=== PATIENT | female | born 1975 | race Caucasian/White ===

== ENCOUNTER 2017-02-26 05:58 | Emergency (ER) | payer MEDICAID, MEDICARE ==
[~2017-02-26] VITALS: Ht 157.5 cm; Wt 77.1 kg
--- NOTE | 2017-02-26 06:28 | RAD ---
INDICATION: POSS. STROKE, AMS, TROUBLE SPEAKING AND STANDING COMPARISON: None. TECHNIQUE: Axial CT images obtained through the head without intravenous contrast. One or more of the following individualized dose reduction techniques were utilized for this examination: 1. Automated exposure control; 2. Adjustment of the mA and/or kV according to patient size; 3. Use of iterative reconstruction technique. FINDINGS: No intracranial hemorrhage. No midline shift. Basal cisterns patent. Ventricles are mildly prominent for the patient's age. No acute osseous abnormality. Orbits and paranasal sinuses unremarkable. IMPRESSION: 1. No acute intracranial hemorrhage. Report called to the ER at 6:21 AM on date of exam. Electronically signed by: Abelardo Holt MD (02/26/2017 6:24 AM) [facility]
[2017-02-26 06:29] LABS: BASO # 0.1 x10^3/uL (0.0-0.2); BASO % 1 % (0-3); EOS # 0.1 x10^3/uL (0.0-0.7); EOS % 1 % (0-3); HEMOGLOBIN 12.8 g/dL (12.0-15.5); LYMPH # 2.3 x10^3/uL (1.0-4.8); LYMPH % 19 % (24-48); MEAN CORPUSCULAR HEMOGLOBIN 30 pg (25-35); MEAN CORPUSCULAR HGB CONC 33 g/dL (31-37); MEAN CORPUSCULAR VOLUME 90 fL (79-100); MONO % 8 % (0-9); NEUT # 8.5 x10^3uL (1.8-7.7); NEUT % 71 % (31-73); PLATELET COUNT 162 x10^3/uL (140-400); RED BLOOD COUNT 4.32 x10^6/uL (3.50-5.40); RED CELL DISTRIBUTION WIDTH 15.8 % (11.5-14.5); WHITE BLOOD COUNT 11.9 x10^3/uL (4.0-11.0)
--- NOTE | 2017-02-26 06:32 | EKG ---
[address] [address] Test Date: 2017-02-26 Test Time: 06:14:40 Pat Name: ROSANGELA FLORENCE Department: Room: Gender: F Online [employer]er: NORBERT : 1975 Requested By: ALEKSANDER COTA Order Number: [id number] Reading MD: Bulmaro Parker Measurements Intervals [place] Rate: 75 P: 51 SD: 134 QRS: 0 QRSD: 82 T: 11 QT: 380 QTc: 427 Interpretive Statements SINUS RHYTHM ATRIAL PREMATURE COMPLEX(ES) Electronically Signed On 02-26-2017 15:34:39 CDT by Bulmrao Parker
--- NOTE | 2017-02-26 06:36 | PHYS DOC ---
Past History Past Medical History: Anxiety, Constipation, COPD, CVA, GERD, Hypertension, TIA , UTI, Other Additional Past Medical Histor: adrenal insufficiency, spinal stenosis, pulmonary embolism Past Surgical History: Cholecystectomy, Hysterectomy, Tonsillectomy Additional Past Surgical Histo: gastrectomy, ventral hernia repair Adult General Chief Complaint Chief Complaint: altered mental status HPI HPI Patient is a 41 year old female who presents to the emergency department for evaluation of altered mental status. Patient was brought to the emergency department by EMS at 0600. The patient reportedly awoke at 0430 in an altered state. Patient's last known well time was 2300 last night before bedtime. The patient has an extensive past medical history that includes COPD, hypertension, pulmonary embolism, spinal stenosis with chronic left-sided foot drop and CVA. Per EMS report, the patient was displaying erratic, jerking movements as told by after patient awoke to try to use the bathroom this morning. The patient was noted on their arrival to be minimally responsive. Currently the patient is opening eyes to voice but is disoriented and unable to provide any history. When asked different questions, the patient continues to repeat, "Dr. Castañeda is my primary doctor." Patient does not localize any complaints at this time. On chart review, the patient was recently admitted to the hospital 2 weeks ago where she was treated for hypokalemia and palpitations. The patient is on fentanyl patch and oral Dilaudid for treatment of chronic back pain. Review of Systems Review of Systems Unable to obtain from patient. She is disoriented and is not answering questions appropriately. Current Medications Current Medications Current Medications Medications (Trade) Dose Ordered Sig/Mani Start Time Stop Time Status Last Admin Dose Admin Ceftriaxone Sodium 1 gm/ Sodium Chloride 50 ml @ 100 mls/hr 1X ONCE 02/26/17 08:00 02/26/17 08:29 Sodium Chloride 1,000 ml @ 1,000 mls/hr 1X ONCE 02/26/17 08:00 02/26/17 08:59 Vancomycin HCl (Vanco Per Pharmacy) 1 each PRN DAILY PRN 02/26/17 07:30 Vancomycin HCl 2 gm/Sodium Chloride 500 ml @ 250 mls/hr 1X ONCE 02/26/17 08:30 02/26/17 10:29 Allergies Allergies Allergies Coded Allergies Type Severity Reaction Last Updated Verified Sulfa (Sulfonamide Antibiotics) Allergy Unknown 02/26/17 Yes citric acid Allergy Unknown 02/26/17 Yes shellfish derived Allergy Unknown 02/26/17 Yes Physical Exam Physical Exam Constitutional: Lethargic, confused, afebrile, vital signs stable. [] HENT: Normocephalic, atraumatic, bilateral external ears normal, oropharynx moist, no oral exudates, nose normal. [] Eyes: PERRLA, EOMI, conjunctiva normal, no discharge. [] Neck: Normal range of motion, no tenderness, supple, no stridor. [] Cardiovascular:Heart rate regular rhythm, no murmur [] Lungs & Thorax: Bilateral breath sounds clear to auscultation [] Abdomen: Bowel sounds normal, soft, no tenderness, no masses, no pulsatile masses. [] Skin: Warm, dry, no erythema, no rash. [] Back: No tenderness, no CVA tenderness. [] Extremities: No tenderness, no cyanosis, no clubbing, ROM intact, no edema. [] Neurologic: Lethargic, opens eyes to voice, confused, moves all extremities purposefully. [] Current Patient Data Vital Signs Vital Signs Date Time Temp Pulse Resp B/P (MAP) Pulse Ox O2 Delivery O2 Flow Rate FiO2 02/26/17 05:58 99.0 81 18 96 4.0 Lab Results Laboratory Tests Test 02/26/17 06:15 02/26/17 06:24 White Blood Count 11.9 x10^3/uL Red Blood Count 4.32 x10^6/uL Hemoglobin 12.8 g/dL Hematocrit 39.0 % Mean Corpuscular Volume 90 fL Mean Corpuscular Hemoglobin 30 pg Mean Corpuscular Hemoglobin Concent 33 g/dL Red Cell Distribution Width 15.8 % Platelet Count 162 x10^3/uL Neutrophils (%) (Auto) 71 % Lymphocytes (%) (Auto) 19 % Monocytes (%) (Auto) 8 % Eosinophils (%) (Auto) 1 % Basophils (%) (Auto) 1 % Neutrophils # (Auto) 8.5 x10^3uL Lymphocytes # (Auto) 2.3 x10^3/uL Monocytes # (Auto) 1.0 x10^3/uL Eosinophils # (Auto) 0.1 x10^3/uL Basophils # (Auto) 0.1 x10^3/uL Sodium Level 142 mmol/L Potassium Level 3.5 mmol/L Chloride Level 107 mmol/L Carbon Dioxide Level 31 mmol/L Anion Gap 4 Blood Urea Nitrogen 12 mg/dL Creatinine 1.6 mg/dL Estimated GFR (Cockcroft-Gault) 35.3 BUN/Creatinine Ratio 8 Glucose Level 86 mg/dL Calcium Level 8.6 mg/dL Magnesium Level 2.1 mg/dL Total Bilirubin 0.4 mg/dL Aspartate Amino Transf (AST/SGOT) 13 U/L Alanine Aminotransferase (ALT/SGPT) 25 U/L Alkaline Phosphatase 85 U/L Creatine Kinase 43 U/L Creatine Kinase MB (Mass) < 0.5 ng/mL Creatine Kinase MB Relative Index 1.2 % Troponin I Quantitative < 0.017 ng/mL Total Protein 6.4 g/dL Albumin 3.2 g/dL Albumin/Globulin Ratio 1.0 Urine Collection Type U cath Urine Color Paulina Urine Clarity Cloudy Urine pH 5.0 Urine Specific [place] <=1.005 Urine Protein 30 mg/dl Urine Glucose (UA) Neg mg/dL Urine Ketones (Stick) Neg mg/dL Urine Blood Large Urine Nitrite Pos Urine Bilirubin Small Urine Urobilinogen Dipstick 1 mg/dL Urine Leukocyte Esterase Large Urine RBC 3-5 /HPF Urine WBC >40 /HPF Urine Squamous Epithelial Cells Mod /LPF Urine Ammonium Biurate Crystals Present /HPF Urine Amorphous Sediment Present /HPF Urine Bacteria Many /HPF Urine Opiates Screen Pos Urine Methadone Screen Neg Urine Barbiturates Neg Urine Phencyclidine Screen Neg Urine Amphetamine/Methamphetamine Neg Urine Benzodiazepines Screen Neg Urine Cocaine Screen Neg Urine Cannabinoids Screen Neg Urine Ethyl Alcohol Neg Current Medications Medications (Trade) Dose Ordered Sig/Mani Route PRN Reason Start Time Stop Time Status Last Admin Dose Admin Sodium Chloride 1,000 ml @ 1,000 mls/hr 1X ONCE IV 02/26/17 08:00 02/26/17 08:59 Ceftriaxone Sodium 1 gm/ Sodium Chloride 50 ml @ 100 mls/hr 1X ONCE IV 02/26/17 08:00 02/26/17 08:29 Vancomycin HCl (Vanco Per Pharmacy) 1 each PRN DAILY PRN MC SEE COMMENTS 02/26/17 07:30 Vancomycin HCl 2 gm/Sodium Chloride 500 ml @ 250 mls/hr 1X ONCE IV 02/26/17 08:30 02/26/17 10:29 EKG EKG Interpreted by me: Heart rate 75, sinus rhythm, normal intervals, leftward axis , no acute ST/T-wave abnormalities present[] Radiology/Procedures Radiology/Procedures [address] [address] IMAGING REPORT Signed PATIENT: ROSANGELA FLORENCE ACCOUNT: [id number] : 1975 LOCATION: ER AGE: 41 SEX: F EXAM STATUS: REG ER ORD. PHYSICIAN: ALEKSANDER COTA MD REASON: decreased responsiveness, rule out acute cardiopulmonary abnormal PROCEDURE: PORTABLE CHEST 1V Portable chest, 02/26/2017: History: Decreased responsiveness A right Port-A-Cath extends into the superior aspect of the right atrium. The heart size and pulmonary vascularity appear to be within normal limits. No pulmonary infiltrates are seen. There is no evidence of pleural fluid. IMPRESSION: No acute cardiopulmonary abnormality is detected. DICTATED AND SIGNED BY: ELZA MARTIN MD DATE: 02/26/17 0706 CC: ALEKSANDER COTA MD; Tony CASTAÑEDA MD ~ [address] [address] IMAGING REPORT Signed PATIENT: ROSANGELA FLORENCE ACCOUNT: [id number] : 1975 LOCATION: ER AGE: 41 SEX: F EXAM STATUS: REG ER ORD. PHYSICIAN: ANTONELLA DUNNE MD REASON: PROCEDURE: CT HEAD WO CONTRAST INDICATION: POSS. STROKE, AMS, TROUBLE SPEAKING AND STANDING COMPARISON: None. TECHNIQUE: Axial CT images obtained through the head without intravenous contrast. One or more of the following individualized dose reduction techniques were utilized for this examination: 1. Automated exposure control; 2. Adjustment of the mA and/or kV according to patient size; 3. Use of iterative reconstruction technique. FINDINGS: No intracranial hemorrhage. No midline shift. Basal cisterns patent. Ventricles are mildly prominent for the patient's age. No acute osseous abnormality. Orbits and paranasal sinuses unremarkable. IMPRESSION: 1. No acute intracranial hemorrhage. Report called to the ER at 6:21 AM on date of exam. Electronically signed by: Abelardo Holt MD (02/26/2017 6:24 AM) [facility] DICTATED AND SIGNED BY: ABELARDO HOLT MD DATE: 02/26/17 0618 CC: ANTONELLA DUNNE MD; ALEKSANDER COTA MD; Tony CASTAÑEDA MD ~ [] Course & Med Decision Making Course & Med Decision Making Pertinent Labs and Imaging studies reviewed. (See chart for details) The patient's workup showed evidence of active urinary tract infection. The patient's vital signs remained stable however the patient continues to be in a lethargic altered state. Acute CVA is less likely in this patient has patient's symptoms appear consistent with encephalopathy and patient has no new focal neurologic deficits. The patient will require admission to the hospital for fluids and IV antibiotics and continued monitoring to ensure improvement in mental status. I spoke with the patient's who stated that they would like the patient admitted at [facility] as her primary physician , Dr. Castañeda, practices there. I spoke with Dr. Hernandez who was on-call for Dr. Castañeda. She accepted care of patient in hospital. The patient will be transferred by ground EMS upon room assignment at [facility]. Dragon Disclaimer Dragon Disclaimer This chart was dictated in whole or in part using Voice Recognition software in a busy, high-work load, and often noisy Emergency Department environment. It may contain unintended and wholly unrecognized errors or omissions. Departure Departure: Impression: Primary Impression: Urinary tract infection Additional Impressions: Acute encephalopathy Chronic, continuous use of opioids Disposition: [facility] Condition: GUARDED Referrals: Tony CASTAÑEDA MD (PCP) Problem Qualifiers Primary Impression: Urinary tract infection Urinary tract infection type: catheter-associated UTI Indwelling urinary catheter type: indwelling urethral catheter Encounter type: initial encounter Qualified Codes: T83.511A - Infection and inflammatory reaction due to indwelling urethral catheter, initial encounter; N39.0 - Urinary tract infection, site not specified ALEKSANDER COTA MD Feb 26, 2017 06:36
[2017-02-26 06:50] LABS: BARBITURATES NEG (NEG); BENZODIAZEPINES NEG (NEG); CANNABINOIDS NEG (NEG); COCAINE NEG (NEG); METHADONE NEG (NEG); OPIATES POS (NEG); PHENCYCLIDINE NEG (NEG)
[2017-02-26 06:53] LABS: AMPHETAMINE/METHAMPHETAMINE NEG (NEG)
[2017-02-26 06:53] LABS: ALBUMIN 3.2 g/dL (3.4-5.0); ALK PHOS 85 U/L (46-116); ALT (SGPT) 25 U/L (14-59); ANION GAP 4 (6-14); AST (SGOT) 13 U/L (15-37); BLOOD UREA NITROGEN 12 mg/dL (7-20); BUN/CREATININE RATIO 8 (6-20); CALCIUM 8.6 mg/dL (8.5-10.1); CARBON DIOXIDE 31 mmol/L (21-32); CHLORIDE 107 mmol/L (98-107); CREATINE KINASE 43 U/L (26-192); CREATININE 1.6 mg/dL (0.6-1.0); GFR 35.3; GLUCOSE 86 mg/dL (70-99); MAGNESIUM 2.1 mg/dL (1.8-2.4); POTASSIUM 3.5 mmol/L (3.5-5.1); SODIUM 142 mmol/L (136-145); TOTAL BILIRUBIN 0.4 mg/dL (0.2-1.0); TOTAL PROTEIN 6.4 g/dL (6.4-8.2)
[2017-02-26 06:54] LABS: BACTERIA,URINE MANY /HPF (0-FEW); BILIRUBIN,URINE SMALL (NEG); CLARITY,URINE CLOUDY; COLOR,URINE AMBER; GLUCOSE,URINE NEG (NEG); NITRITE,URINE POS (NEG); UROBILINOGEN,URINE 1 mg/dL (0.2 mg/dL); WBC,URINE >40 /HPF (0-4)
[2017-02-26 06:55] LABS: AMMONIUM BIURATE PRESENT /HPF; SQUAMOUS EPITHELIAL CELL,UR MOD /LPF
[2017-02-26 06:57] LABS: AMORPHOUS SEDIMENT,UR PRESENT /HPF
--- NOTE | 2017-02-26 07:09 | RAD ---
Portable chest, 02/26/2017: History: Decreased responsiveness A right Port-A-Cath extends into the superior aspect of the right atrium. The heart size and pulmonary vascularity appear to be within normal limits. No pulmonary infiltrates are seen. There is no evidence of pleural fluid. IMPRESSION: No acute cardiopulmonary abnormality is detected.
[2017-02-26] MEDS ORDERED: VANCOMYCIN PER PHARMACY MC PRN (07:30)
[2017-02-26] MEDS ORDERED: IV NORMAL SALINE 1,000ML 1,000 ML IV ONE (08:00)
[2017-02-26] MEDS ORDERED: IV NORMAL SALINE 500ML 500 ML ONE (08:02)
[2017-02-26] MEDS ORDERED: IV NORMAL SALINE 50ML 50 ML ONE (08:02)
[2017-02-26] MEDS ORDERED: VANCOMYCIN 1 GM VIAL. ONE ×2 (08:02→08:03)
[2017-02-26] MEDS ORDERED: cefTRIAXone SODIUM 1 GM VIAL IV ONE (08:03)
[2017-02-26] MEDS ORDERED: VANCOMYCIN 2 GM in IV NORMAL SALINE 500ML 500 ML IV ONE (08:30)
[2017-02-26 09:45] VITALS: BP 87/5
== END 2017-02-26 10:05 | disposition short-term general hospital (02) ==
LOC: ER 05:58
DX: T83.511A Infection and inflammatory reaction due to indwelling urethral catheter, initial encounter (principal); N39.0 Urinary tract infection, site not specified; G93.40 Encephalopathy, unspecified; F11.90 Opioid use, unspecified, uncomplicated; J44.9 Chronic obstructive pulmonary disease, unspecified; F41.9 Anxiety disorder, unspecified; I10 Essential (primary) hypertension; K21.9 Gastro-esophageal reflux disease without esophagitis; Z86.711 Personal history of pulmonary embolism; Z86.73 Personal history of transient ischemic attack (TIA), and cerebral infarction without residual deficits; Z88.2 Allergy status to sulfonamides; Z88.8 Allergy status to other drugs, medicaments and biological substances; Z91.013 Allergy to seafood
CPT/HCPCS: 36415; 70450; 71010; 80053; 80307; 81001; 82553; 83735; 84484; 85025; 87040; 87086; 87205; 93005; 96365; 96366; 96368; 99285; J0696; J3370; J7040; G0479; J7030

== ENCOUNTER 2017-06-02 06:50 | Emergency (ER) | payer MEDICAID, MEDICARE ==
[~2017-06-02] VITALS: Ht 160 cm; Wt 76.0 kg
--- NOTE | 2017-06-02 07:39 | PHYS DOC ---
Past History Past Medical History: Anxiety, Constipation, COPD, CVA, GERD, Hypertension, TIA , UTI, Other Additional Past Medical Histor: adrenal insufficiency, spinal stenosis, pulmonary embolism Past Surgical History: Cholecystectomy, Hysterectomy, Tonsillectomy Additional Past Surgical Histo: gastrectomy, ventral hernia repair Alcohol Use: None Drug Use: None Adult General Chief Complaint Chief Complaint: URINE CATHETER PROBLEM HPI HPI 41-year-old female patient brought in by her because of the suprapubic catheter is not working. Patient has had extensive medical problem including adrenal insufficiency, gastrectomy and recent suprapubic catheter placement on April 06. Home health nurse replaced suprapubic catheter yesterday and since then patient did not have any urine output and complaining of suprapubic pain constant sharp pain with radiation to her back. Patient wearing depends and had wet diaper at arrival to ER. Patient is asleep most of time and her who gives history states she was not able to sleep well last night and because of taking pain medication she is in her usual condition of the sleeping most the time. Review of Systems Review of Systems Constitutional: Denies fever or chills [] Eyes: Denies change in visual acuity, redness, or eye pain [] HENT: Denies nasal congestion or sore throat [] Respiratory: Denies cough or shortness of breath [] Cardiovascular: No additional information not addressed in HPI [] GI: Denies nausea, vomiting, bloody stools or diarrhea , reports abdominal pain. : Denies dysuria or hematuria [] Musculoskeletal: Denies back pain or joint pain [] Integument: Denies rash or skin lesions [] Neurologic: Denies headache, focal weakness or sensory changes [] Endocrine: Denies polyuria or polydipsia [] All other systems were reviewed and found to be within normal limits, except as documented in this note. Current Medications Current Medications Current Medications Medications (Trade) Dose Ordered Sig/Mani Start Time Stop Time Status Last Admin Dose Admin Sodium Chloride 1,000 ml @ 1,000 mls/hr 1X ONCE 06/02/17 08:00 06/02/17 08:59 Allergies Allergies Allergies Coded Allergies Type Severity Reaction Last Updated Verified Sulfa (Sulfonamide Antibiotics) Allergy Unknown 02/26/17 Yes citric acid Allergy Unknown 02/26/17 Yes shellfish derived Allergy Unknown 02/26/17 Yes Physical Exam Physical Exam Constitutional: Well nourished, somnolent, non-toxic appearance. [] HENT: Normocephalic, atraumatic, bilateral external ears normal, oropharynx moist, no oral exudates, nose normal. [] Eyes: PERRLA, EOMI, conjunctiva normal, no discharge. [] Neck: Normal range of motion, no tenderness, supple, no stridor. [] Cardiovascular:Heart rate regular rhythm, no murmur [] Lungs & Thorax: Bilateral breath sounds clear to auscultation [] Abdomen: Suprapubic in place, lower abdominal guarding and tenderness Skin: Warm, dry, no erythema, no rash. [] Back: No tenderness, no CVA tenderness. [] Extremities: No tenderness, no cyanosis, no clubbing, ROM intact, no edema. [] Neurologic: Alert and oriented X 3, normal motor function, normal sensory function, no focal deficits noted. [] Psychologic: Somnolent, unable to evaluate EKG EKG [] Radiology/Procedures Radiology/Procedures [] Course & Med Decision Making Course & Med Decision Making Pertinent Labs and Imaging studies reviewed. (See chart for details) [Evaluation of patient in ER showed 41-year-old female patient brought in to ER because of suprapubic catheter did not work since the placement yesterday. Ellis catheter was placed with 200 mL urine was drained. CT of abdomen and pelvis showed dislodged suprapubic catheter in preperitoneal fat. Dr. Hill the patient's urologist was contacted at 0936 and recommended to send patient to his office for replacement of suprapubic catheter. Patient's was informed and plan to take patient to her doctor's office. She was comfortable and sleeping most of time while she was in ER. Patient informed with plan of care and is to go to her doctor this morning after discharge from this emergency room. Suprapubic and Ellis was left in the place. Patient has history of adrenal insufficiency on prednisone and prednisolone and did not take her medication this morning. One dose of Solu-Medrol and 1 dose of Solu- Cortef was given in ER. Dragon Disclaimer Dragon Disclaimer This electronic medical record was generated, in whole or in part, using a voice recognition dictation system. Departure Departure: Impression: Primary Impression: Encounter for suprapubic catheter care Additional Impressions: Abdominal pain History of adrenal insufficiency Somnolence, daytime Leukocytosis Disposition: 01 HOME, SELF-CARE (at 0947 2 her urologists office) Condition: IMPROVED Referrals: Tony DO MD (PCP) Patient Instructions: Suprapubic Catheter Home Guide Additional Instructions: Follow-up with Dr. Hill office after discharge from this emergency room Do not eat or drink anything until seen by your doctor this morning Problem Qualifiers VINH SOUZA MD Jun 02, 2017 07:39
[2017-06-02 07:42] LABS: BASO # 0.1 x10^3/uL (0.0-0.2); BASO % 1 % (0-3); EOS % 0 % (0-3); HEMOGLOBIN 13.1 g/dL (12.0-15.5); LYMPH # 3.4 x10^3/uL (1.0-4.8); LYMPH % 29 % (24-48); MEAN CORPUSCULAR HEMOGLOBIN 30 pg (25-35); MEAN CORPUSCULAR HGB CONC 33 g/dL (31-37); MEAN CORPUSCULAR VOLUME 92 fL (79-100); MONO # 0.6 x10^3/uL (0.0-1.1); MONO % 6 % (0-9); NEUT # 7.6 x10^3uL (1.8-7.7); NEUT % 65 % (31-73); PLATELET COUNT 136 x10^3/uL (140-400); RED BLOOD COUNT 4.37 x10^6/uL (3.50-5.40); RED CELL DISTRIBUTION WIDTH 13.2 % (11.5-14.5); WHITE BLOOD COUNT 11.7 x10^3/uL (4.0-11.0)
[2017-06-02 07:51] LABS: ALBUMIN 2.9 g/dL (3.4-5.0); ALBUMIN/GLOBULIN RATIO 0.9 (1.0-1.7); CALCIUM 8.3 mg/dL (8.5-10.1); CREATININE 0.9 mg/dL (0.6-1.0); GFR 68.7; POTASSIUM 3.5 mmol/L (3.5-5.1); TOTAL BILIRUBIN 0.3 mg/dL (0.2-1.0)
[2017-06-02] MEDS ORDERED: IV NORMAL SALINE 1,000ML 1,000 ML IV ONE (08:00)
[2017-06-02] MEDS ORDERED: methylPREDNISolone SOD SUCC PF 125 MG/2 ML VIAL. IV ONE (08:00)
[2017-06-02] MEDS ORDERED: HYDROCORTISONE SOD SUCC/PF 100 MG/2 ML VIAL. IV ONE (08:00)
--- NOTE | 2017-06-02 08:02 | RAD ---
Indication: Altered level of consciousness. Technique: AP portable chest radiograph was obtained and compared to a study from February 26, 2017. Findings: The lungs are clear. The heart is not enlarged. There is no heart failure. Port is noted with needle access. Leads overlie the patient. Impression: No acute thoracic findings.
[2017-06-02 08:24] LABS: BACTERIA,URINE 0 /HPF (0-FEW); BILIRUBIN,URINE NEG (NEG); CLARITY,URINE CLEAR; COLOR,URINE YELLOW; GLUCOSE,URINE NEG (NEG); NITRITE,URINE NEG (NEG); RBC,URINE 0 /HPF (0-2); SQUAMOUS EPITHELIAL CELL,UR OCC /LPF; UROBILINOGEN,URINE 0.2 mg/dL (0.2 mg/dL); WBC,URINE 0 /HPF (0-4)
[2017-06-02] MEDS ORDERED: IOHEXOL 300 MG/ML 75 ML VIAL. IV ONE (08:30)
--- NOTE | 2017-06-02 08:56 | RAD ---
CT of the abdomen and pelvis with contrast, 06/02/2017: History: Abdominal pain, possible dislodged suprapubic catheter Multidetector CT imaging was performed following an IV bolus injection of iodinated contrast material. No oral contrast material was administered for this exam. The gallbladder is surgically absent. Slight prominence of the central intrahepatic bile ducts is probably secondary to the postcholecystectomy state. No hepatic mass is evident. The pancreas is unremarkable. The spleen is of normal size. No renal or adrenal abnormality is detected. There is mild aortic calcific plaquing without evidence of aneurysm. No abdominal or pelvic adenopathy is seen. The uterus is surgically absent. Two small foci of rim-like enhancement in the right pelvis are probably ovarian cysts. There is a Ellis catheter within the partially collapsed urinary bladder. The patient's known suprapubic catheter does not lie in the bladder. It is located in the mesenteric fat anteriorly in the pelvis with adjacent unopacified small bowel as well as streaky edema in the mesentery. There is a moderate amount of semisolid stool in the rectum and sigmoid colon. There are surgical sutures related to small bowel loops in the left upper quadrant. By history there is been a previous gastrectomy. No free air or significant free fluid is evident in the abdomen or pelvis. There is streaky increased density in the subcutaneous soft tissues of the lower anterior abdominal wall near the midline compatible scarring related to the history of previous ventral hernia repair. No significant recurrent hernia seen. There are mild scattered degenerative changes in the spine. There is bilateral spondylolysis at L5 with a slight spondylolisthesis at L5-S1. IMPRESSION: 1. Dislodgment of the patient's suprapubic catheter with streaky inflammation in the adjacent mesenteric fat. 2. A Ellis catheter is present within the nondistended urinary bladder. 3. Increased semisolid stool in the rectosigmoid colon. PQRS Compliance Statement: One or more of the following individualized dose reduction techniques were utilized for this examination: 1. Automated exposure control 2. Adjustment of the mA and/or kV according to patient size 3. Use of iterative reconstruction technique
[2017-06-02 10:00] VITALS: BP 180/90
== END 2017-06-02 10:15 | disposition home or self-care (01) ==
LOC: ER 06:50
DX: Z46.6 Encounter for fitting and adjustment of urinary device (principal); T83.098A Other mechanical complication of other urinary catheter, initial encounter; E27.40 Unspecified adrenocortical insufficiency; R40.0 Somnolence; D72.829 Elevated white blood cell count, unspecified; I10 Essential (primary) hypertension; J44.9 Chronic obstructive pulmonary disease, unspecified; K21.9 Gastro-esophageal reflux disease without esophagitis; F41.9 Anxiety disorder, unspecified; Z86.711 Personal history of pulmonary embolism; Z86.73 Personal history of transient ischemic attack (TIA), and cerebral infarction without residual deficits; Z88.2 Allergy status to sulfonamides; Z88.8 Allergy status to other drugs, medicaments and biological substances; Z91.013 Allergy to seafood
CPT/HCPCS: 36415; 36556; 51702; 71010; 74177; 80053; 81001; 83605; 85025; 87040; 87205; 96361; 96374; 96375; 99285; J2930; Q9967; J7030

== ENCOUNTER → 2017-11-29 | Outpatient (CLI) | payer MEDICARE, OTHER ==
[~2017-11-29] MED LIST: IOHEXOL 240 MG/ML 50ML VIAL. ONE; IOHEXOL 240 MG/ML 50ML VIAL. PO ONE; IOHEXOL 300 MG/ML 75 ML VIAL. IV ONE
--- NOTE | 2017-11-29 14:56 | RAD ---
Indication:Abdominal pain, hernia. Pt states 23 surgeries to abdomen. Urinary cath in place. WO and W per doctor order. TECHNIQUE: CT abdomen and pelvis with IV contrast with multiplanar reformats. COMPARISON: Previous study from 06/19/2017 FINDINGS: Heart is normal in size. No pericardial or pleural effusion. Clear lung bases. Liver, spleen, pancreas, adrenals and kidneys are within normal limits. No nephrolithiasis or hydronephrosis. No retroperitoneal or pelvic adenopathy. No bowel obstruction. Urinary bladder is decompressed with suprapubic catheter in place. Status post hysterectomy. No free pelvic fluid or ascites. Left ovary is visualized. There is a 2.6 x 2.6 cm well-circumscribed low attenuating lesion is seen in the anterior lower right pelvis with suggestion of right gonadal vein leading to it. No abdominal wall hernia. No suspicious bony lesion. IMPRESSION: 1. Anterior lower right pelvic lesion as described above may represent a patulous loop of small bowel, hydrosalpinx or right ovarian cystic lesion. 2. Suprapubic catheter in place. 3. No evidence of hernia. No bowel obstruction. Electronically signed by: Geovani Gallardo DO (11/29/2017 2:52 PM) [facility]
== END | disposition home or self-care (01) ==
LOC: CT 12:11
PROVIDERS: ATTEND Family Medicine
DX: K46.9 Unspecified abdominal hernia without obstruction or gangrene (principal)
CPT/HCPCS: 74177; Q9966; Q9967

== ENCOUNTER → 2017-12-14 | Outpatient (CLI) | payer OTHER ==
--- NOTE | 2017-12-14 13:40 | RAD ---
Transabdominal and transvaginal pelvic ultrasound 12/14/2017 INDICATION: Abnormal CT scan. COMPARISON STUDY: CT the abdomen and pelvis November 29, 2012 Discussion: Ultrasound evaluation of the pelvis was performed transabdominally and transvaginally. Static images are submitted PACS. Right ovary measures 3.1 x 2.9 x 3.3 cm. Within the right ovary there is a 3.3 cm simple appearing cyst. No septations, or nodular components are identified by ultrasound. Left ovary measures 1.6 x 1.3 x 1.7 cm. No focal ovarian lesions are seen on the left. Blood flow to the ovaries appears to be grossly unremarkable. Suprapubic catheter is noted within a decompressed bladder. No significant free fluid is identified in the pelvis. IMPRESSION: 3.3 cm simple appearing cyst in the right ovary. Consider follow-up ultrasound based on clinical history/findings. Electronically signed by: Olayinka Tena MD (12/14/2017 1:36 PM) [facility]
== END | disposition home or self-care (01) ==
LOC: US 10:49
PROVIDERS: ATTEND Family Medicine
DX: R93.5 Abnormal findings on diagnostic imaging of other abdominal regions, including retroperitoneum (principal); I10 Essential (primary) hypertension; J44.9 Chronic obstructive pulmonary disease, unspecified
CPT/HCPCS: 76830; 76856

== ENCOUNTER 2018-02-04 08:51 | Emergency (ER) | payer OTHER ==
[~2018-02-04] VITALS: Ht 157.5 cm; Wt 84.0 kg
[2018-02-04 10:09] LABS: BASO # 0.1 x10^3/uL (0.0-0.2); BASO % 1 % (0-3); EOS # 0.2 x10^3/uL (0.0-0.7); EOS % 2 % (0-3); HEMATOCRIT 27.9 % (36.0-47.0); LYMPH # 2.3 x10^3/uL (1.0-4.8); LYMPH % 25 % (24-48); MEAN CORPUSCULAR HEMOGLOBIN 34 pg (25-35); MEAN CORPUSCULAR HGB CONC 32 g/dL (31-37); MEAN CORPUSCULAR VOLUME 104 fL (79-100); MONO # 0.5 x10^3/uL (0.0-1.1); MONO % 5 % (0-9); NEUT # 6.2 x10^3uL (1.8-7.7); NEUT % 67 % (31-73); PLATELET COUNT 173 x10^3/uL (140-400); RED BLOOD COUNT 2.68 x10^6/uL (3.50-5.40); RED CELL DISTRIBUTION WIDTH 15.8 % (11.5-14.5); WHITE BLOOD COUNT 9.3 x10^3/uL (4.0-11.0)
--- NOTE | 2018-02-04 10:13 | RAD ---
EXAM: PA and lateral views of the chest DATE: 02/04/2018 9:27 AM INDICATION: HX OF CHF, LOWER EXT EDEMA COMPARISON: 06/02/2017, 02/26/2017 FINDINGS: Right Port-A-Cath tip projects over the distal SVC/superior cavoatrial junction. The heart is not enlarged. No focal parenchymal airspace opacity. No pleural effusion or pneumothorax. Surgical clips are seen in the right upper quadrant. IMPRESSION: 1. No radiographic evidence for acute cardiopulmonary process. 2. Right Port-A-Cath tip projects over the distal SVC/superior cavoatrial junction. Electronically signed by: Steve Almaraz MD (02/04/2018 10:09 AM) [facility]
[2018-02-04 10:30] LABS: ALBUMIN 2.9 g/dL (3.4-5.0); ALBUMIN/GLOBULIN RATIO 1.2 (1.0-1.7); CREATININE 0.8 mg/dL (0.6-1.0); GFR 78.3; POTASSIUM 3.9 mmol/L (3.5-5.1); TOTAL BILIRUBIN 0.5 mg/dL (0.2-1.0); TOTAL PROTEIN 5.3 g/dL (6.4-8.2)
[2018-02-04 10:44] LABS: AMPHETAMINE/METHAMPHETAMINE NEG (NEG); BARBITURATES NEG (NEG); BENZODIAZEPINES NEG (NEG); CANNABINOIDS NEG (NEG); COCAINE NEG (NEG); METHADONE NEG (NEG); OPIATES NEG (NEG); PHENCYCLIDINE NEG (NEG)
[2018-02-04 11:41] LABS: BACTERIA,URINE FEW /HPF (0-FEW); BILIRUBIN,URINE NEG (NEG); CLARITY,URINE HAZY; COLOR,URINE AMBER; GLUCOSE,URINE NEG (NEG); NITRITE,URINE POS (NEG); SQUAMOUS EPITHELIAL CELL,UR FEW /LPF; UROBILINOGEN,URINE 1 mg/dL (0.2 mg/dL); YEAST,URINE PRESENT /HPF
[2018-02-04] MEDS ORDERED: FURO-68 PO (12:03)
[2018-02-04] MEDS ORDERED: POTA20TA4 PO (12:03)
[2018-02-04] MEDS ORDERED: CIPR250T30 PO (12:03)
--- NOTE | 2018-02-04 12:04 | PHYS DOC ---
Past History Past Medical History: Asthma, CHF, Other Additional Past Medical Histor: adrenal insufficiency, spinal stenosis, pulmonary embolism Past Surgical History: Cholecystectomy, Hysterectomy, Tonsillectomy, Other Additional Past Surgical Histo: gastrectomy, ventral hernia repair Alcohol Use: None Drug Use: None Adult General Chief Complaint Chief Complaint: LOWER EXTREMITY EDEMA [facility] HPI 42-year-old female patient with multiple medical problem including COPD and suprapubic catheter placement and spinal stenosis on chronic pain medication complaining of bilateral lower extremity edema for the last 3 days with pain and mild shortness of breath. Patient states she had the same problem previously with diagnose of CHF. Patient currently taking Aldactone and states she drinks about 100 oz of liquids daily. Patient denies chest pain, fever and chills, history of DVT and PE. Review of Systems Review of Systems Constitutional: Denies fever or chills [] Eyes: Denies change in visual acuity, redness, or eye pain [] HENT: Denies nasal congestion or sore throat [] Respiratory: Denies cough or shortness of breath [] Cardiovascular: No additional information not addressed in HPI [] GI: Denies abdominal pain, nausea, vomiting, bloody stools or diarrhea [] : Denies dysuria or hematuria [] Musculoskeletal: Reports chronic back pain ] Integument: Denies rash or skin lesions [] Neurologic: Denies headache, focal weakness or sensory changes [] Endocrine: Denies polyuria or polydipsia [] All other systems were reviewed and found to be within normal limits, except as documented in this note. Current Medications Current Medications Current Medications Medications (Trade) Dose Ordered Sig/Mani Start Time Stop Time Status Last Admin Dose Admin Fentanyl Citrate (Fentanyl 2ml Vial) 50 mcg 1X ONCE 02/04/18 10:00 02/04/18 10:01 DC Allergies Allergies Allergies Coded Allergies Type Severity Reaction Last Updated Verified Sulfa (Sulfonamide Antibiotics) Allergy Unknown 02/04/18 Yes citric acid Allergy Unknown 02/04/18 Yes shellfish derived Allergy Unknown 02/04/18 Yes Physical Exam Physical Exam Constitutional: Well nourished, mild distress, non-toxic appearance, mild pallor. [] HENT: Normocephalic, atraumatic, oropharynx moist, no oral exudates, nose normal. [] Eyes: PERRLA, EOMI, conjunctiva normal, no discharge. [] Neck: Normal range of motion, no tenderness, supple, no stridor. [] Cardiovascular:Heart rate regular rhythm, no murmur [] Lungs & Thorax: Bilateral breath sounds clear to auscultation [] Abdomen: Bowel sounds normal, soft, no tenderness, no masses, no pulsatile masses. [] Skin: Warm, dry, no erythema, no rash. [] Back: No tenderness, no CVA tenderness. [] Extremities: No tenderness, no cyanosis, no clubbing, ROM intact, bilateral lower extremity 3+ edema without tenderness] Neurologic: Alert and oriented X 3, normal motor function, normal sensory function, no focal deficits noted. [] Psychologic: Affect normal, judgement normal, mood normal. [] Current Patient Data Vital Signs Vital Signs Date Time Temp Pulse Resp B/P (MAP) Pulse Ox O2 Delivery O2 Flow Rate FiO2 02/04/18 11:18 75 16 117/84 (95) 93 Nasal Cannula 2.0 02/04/18 09:09 98.7 Lab Results Laboratory Tests Test 02/04/18 09:45 02/04/18 09:50 02/04/18 10:18 02/04/18 11:01 White Blood Count 9.3 x10^3/uL (4.0-11.0) Red Blood Count 2.68 x10^6/uL (3.50-5.40) L Hemoglobin 9.0 g/dL (12.0-15.5) L Hematocrit 27.9 % (36.0-47.0) L Mean Corpuscular Volume 104 fL (79-100) H Mean Corpuscular Hemoglobin 34 pg (25-35) Mean Corpuscular Hemoglobin Concent 32 g/dL (31-37) Red Cell Distribution Width 15.8 % (11.5-14.5) H Platelet Count 173 x10^3/uL (140-400) Neutrophils (%) (Auto) 67 % (31-73) Lymphocytes (%) (Auto) 25 % (24-48) Monocytes (%) (Auto) 5 % (0-9) Eosinophils (%) (Auto) 2 % (0-3) Basophils (%) (Auto) 1 % (0-3) Neutrophils # (Auto) 6.2 x10^3uL (1.8-7.7) Lymphocytes # (Auto) 2.3 x10^3/uL (1.0-4.8) Monocytes # (Auto) 0.5 x10^3/uL (0.0-1.1) Eosinophils # (Auto) 0.2 x10^3/uL (0.0-0.7) Basophils # (Auto) 0.1 x10^3/uL (0.0-0.2) Sodium Level 144 mmol/L (136-145) Potassium Level 3.9 mmol/L (3.5-5.1) Chloride Level 112 mmol/L (98-107) H Carbon Dioxide Level 22 mmol/L (21-32) Anion Gap 10 (6-14) Blood Urea Nitrogen 11 mg/dL (7-20) Creatinine 0.8 mg/dL (0.6-1.0) Estimated GFR (Cockcroft-Gault) 78.3 BUN/Creatinine Ratio 14 (6-20) Glucose Level 93 mg/dL (70-99) Calcium Level 8.0 mg/dL (8.5-10.1) L Total Bilirubin 0.5 mg/dL (0.2-1.0) Aspartate Amino Transferase (AST) 14 U/L (15-37) L Alanine Aminotransferase (ALT) 17 U/L (14-59) Alkaline Phosphatase 58 U/L (46-116) Creatine Kinase 33 U/L (26-192) Creatine Kinase MB (Mass) 0.5 ng/mL (0.0-3.6) Creatine Kinase MB Relative Index 1.5 % (0-4) Troponin I Quantitative < 0.017 ng/mL (0-0.055) PN-Eyp-C-Type Natriuretic Peptide 754 pg/mL (0-124) H Total Protein 5.3 g/dL (6.4-8.2) L Albumin 2.9 g/dL (3.4-5.0) L Albumin/Globulin Ratio 1.2 (1.0-1.7) Lipase 205 U/L (73-393) Lactic Acid Level 0.9 mmol/L (0.4-2.0) Urine Opiates Screen Neg (NEG) Urine Methadone Screen Neg (NEG) Urine Barbiturates Neg (NEG) Urine Phencyclidine Screen Neg (NEG) Urine Amphetamine/Methamphetamine Neg (NEG) Urine Benzodiazepines Screen Neg (NEG) Urine Cocaine Screen Neg (NEG) Urine Cannabinoids Screen Neg (NEG) Urine Ethyl Alcohol Neg (NEG) Urine Collection Type U cath Urine Color Paulina Urine Clarity Hazy Urine pH 5.0 Urine Specific [place] 1.025 Urine Protein 30 mg/dl (NEG-TRACE) Urine Glucose (UA) Neg mg/dL (NEG) Urine Ketones (Stick) Neg mg/dL (NEG) Urine Blood Neg (NEG) Urine Nitrite Pos (NEG) Urine Bilirubin Neg (NEG) Urine Urobilinogen Dipstick 1 mg/dL (0.2 mg/dL) Urine Leukocyte Esterase Small (NEG) Urine RBC 6-10 /HPF (0-2) Urine WBC 11-20 /HPF (0-4) Urine Squamous Epithelial Cells Few /LPF Urine Bacteria Few /HPF (0-FEW) Urine Yeast Present /HPF EKG EKG EKG interpreted by me. EKG at 0 911 showed normal sinus rhythm at rate of 74, poor R-wave progress in anteroseptal leads, no acute distress and T-wave abnormalities.[] Radiology/Procedures Radiology/Procedures [[address] [address] IMAGING REPORT Signed PATIENT: ROSANGELA FLORENCE ACCOUNT: [id number] : 1975 LOCATION: ER AGE: 42 SEX: F EXAM STATUS: REG ER ORD. PHYSICIAN: VINH SOUZA MD REASON: lower extremity edema PROCEDURE: CHEST PA & LATERAL EXAM: PA and lateral views of the chest DATE: 02/04/2018 9:27 AM INDICATION: HX OF CHF, LOWER EXT EDEMA COMPARISON: 06/02/2017, 02/26/2017 FINDINGS: Right Port-A-Cath tip projects over the distal SVC/superior cavoatrial junction. The heart is not enlarged. No focal parenchymal airspace opacity. No pleural effusion or pneumothorax. Surgical clips are seen in the right upper quadrant. IMPRESSION: 1. No radiographic evidence for acute cardiopulmonary process. 2. Right Port-A-Cath tip projects over the distal SVC/superior cavoatrial junction. Electronically signed by: Steve Aguayo MD (02/04/2018 10:09 AM) [facility] [place] DICTATED AND SIGNED BY: STEVE AGUAYO MD DATE: 02/04/18 1008 CC: Tony DO MD; VINH SOUZA MD ~ ] Course & Med Decision Making Course & Med Decision Making Pertinent Labs and Imaging studies reviewed. (See chart for details) Evaluation of patient in ER showed 41-year-old female patient with complaining of bilateral lower extremity edema for 3 days. Patient had history of CHF and taking Aldactone with drinking plenty of liquids. Patient had fentanyl patch but asking for pain medication even she was in no distress. Patient had O2 sat of 88% on finding to sleep and started on oxygen with improvement of oxygen to 92%. Patient had suprapubic catheter in place with cloudy urine. Patient currently taking potassium twice a day and Lasix 40 mg daily was started and instructed to avoid of drinking plenty of liquids and follow up with her primary care physician. She hasn't had O2 sats of 92% while she was awake without oxygen. [] Dragon Disclaimer Dragon Disclaimer This electronic medical record was generated, in whole or in part, using a voice recognition dictation system. Departure Departure: Impression: Primary Impression: Lower extremity edema Additional Impressions: Congestive heart failure Anemia COPD (chronic obstructive pulmonary disease) Tobacco abuse Tobacco abuse counseling UTI (urinary tract infection) due to urinary indwelling catheter Disposition: HOME, SELF-CARE (at 1157) Condition: IMPROVED Referrals: Tony DO MD (PCP) Patient Instructions: Heart Failure, Peripheral Edema, Smoking Cessation, Smoking Cessation, Tips For Success, Sodium and Fluid Restriction, Urinary Tract Infection Additional Instructions: Drink only 4-6 cups of liquid every day Follow-up with your primary care physician in 3-5 days Return to ER if not getting better Scripts Ciprofloxacin Hcl (CIPRO) 250 Mg Tablet 1 TAB PO BID, #14 TAB Prov: VINH SOUZA MD 02/04/18 Furosemide (LASIX) 40 Mg Tablet 40 MG PO DAILY, #30 TAB Prov: VINH SOUZA MD 02/04/18 Problem Qualifiers VINH SOUZA MD Feb 04, 2018 12:04
[2018-02-04 12:11] VITALS: BP 121/75
--- NOTE | 2018-02-04 20:24 | EKG ---
[address] [address] Test Date: 2018-02-04 Test Time: 09:11:36 Pat Name: ROSANGELA FLORENCE Department: Room: Gender: F [employer]: : 1975 Requested By: VINH SOUZA Order Number: [id number] Reading MD: Bulmaro Parker MD Measurements Intervals [place] Rate: 74 P: 39 FL: 134 QRS: 4 QRSD: 78 T: 14 QT: 374 QTc: 416 Interpretive Statements SINUS RHYTHM Electronically Signed On 02-07-2018 10:35:56 CDT by Bulmaro Parker MD
== END 2018-02-04 12:15 | disposition home or self-care (01) ==
LOC: ER 08:51
DX: R60.0 Localized edema (principal); I50.9 Heart failure, unspecified; D64.9 Anemia, unspecified; J44.9 Chronic obstructive pulmonary disease, unspecified; N39.0 Urinary tract infection, site not specified; Z72.0 Tobacco use; Z71.6 Tobacco abuse counseling; Z90.49 Acquired absence of other specified parts of digestive tract; Z90.710 Acquired absence of both cervix and uterus; Z90.3 Acquired absence of stomach [part of]; Z88.2 Allergy status to sulfonamides; Z88.8 Allergy status to other drugs, medicaments and biological substances; Z91.013 Allergy to seafood
CPT/HCPCS: 36415; 71046; 80053; 80307; 81001; 82553; 83605; 83690; 83880; 84484; 85025; 87086; 93005; 99285-25; G0479

== ENCOUNTER → 2018-03-21 | Outpatient (CLI) | payer OTHER ==
[~2018-03-21] MED LIST changes: +CIPR250T30 PO; +FURO-68 PO; -IOHEXOL 240 MG/ML 50ML VIAL. ONE; -IOHEXOL 240 MG/ML 50ML VIAL. PO ONE; -IOHEXOL 300 MG/ML 75 ML VIAL. IV ONE; +POTA20TA4 PO
[2018-03-21 09:01] LABS: CALCIUM 8.3 mg/dL (8.5-10.1); CREATININE 1.2 mg/dL (0.6-1.0); POTASSIUM 3.6 mmol/L (3.5-5.1)
== END | disposition home or self-care (01) ==
LOC: LAB 08:22
PROVIDERS: ATTEND Family Medicine
DX: R60.0 Localized edema (principal)
CPT/HCPCS: 36415; 80048

== ENCOUNTER → 2018-04-26 | Outpatient (CLI) | payer OTHER ==
--- NOTE | 2018-04-27 09:24 | RAD ---
DATE: 04/26/2018 EXAM: DIGITAL SCREEN BILAT W/CAD HISTORY: Routine screening COMPARISON: Baseline study This study was interpreted with the benefit of Computerized Aided Detection (CAD). Breast Density: SCATTERED The breast parenchyma shows scattered fibroglandular densities. Breast parenchyma level B. FINDINGS: A radiopaque foreign body projected over the superior medial aspect of the right breast posteriorly is compatible with a Port-A-Cath port. No breast mass or suspicious microcalcifications are seen. IMPRESSION: There is no mammographic evidence of malignancy in either breast. BI-RADS CATEGORY: 1 NEGATIVE RECOMMENDED FOLLOW-UP: 12M 12 MONTH FOLLOW-UP PQRS compliance statement: Patient information was entered into a reminder system with a target due date for the next mammogram. Mammography is a sensitive method for finding small breast cancers, but it does not detect them all and is not a substitute for careful clinical examination. A negative mammogram does not negate a clinically suspicious finding and should not result in delay in biopsying a clinically suspicious abnormality. "Our facility is accredited by the [employer] Mammography Program."
== END | disposition home or self-care (01) ==
LOC: MAMMO 11:14
PROVIDERS: ATTEND Family Medicine
DX: Z12.31 Encounter for screening mammogram for malignant neoplasm of breast (principal)
CPT/HCPCS: 77067

== ENCOUNTER 2018-05-18 09:17 | Emergency (ER) | payer OTHER ==
[~2018-05-18] VITALS: Ht 157.5 cm; Wt 77.1 kg
--- NOTE | 2018-05-18 09:54 | PHYS DOC ---
Past History Past Medical History: Asthma, CHF, Other Additional Past Medical Histor: adrenal insufficiency, spinal stenosis, pulmonary embolism Past Surgical History: Cholecystectomy, Hysterectomy, Tonsillectomy, Other Additional Past Surgical Histo: gastrectomy, ventral hernia repair Alcohol Use: None Drug Use: None Adult General Chief Complaint Chief Complaint: KNEE INJURY [facility] HPI 42-year-old female presents with left knee pain. The patient was outside instantly condition just a when the dog pulled her off the porch. She fell onto her left knee with a flexed behind her. She just assumed it was bruised but it might get better overnight. This morning, the pain continues and is mostly in the anterior and lateral side. She gets intermittent shooting sharp pains in addition to the deep aching. These pains seem to occur whether or not she is moving it. She is able to walk but is very painful. It is now swollen. She denies any other injuries. The patient is on high-dose chronic pain medication with fentanyl patch and levorphanol. He denies fever or chills. Review of Systems Review of Systems Constitutional: Denies fever or chills [] Eyes: Denies change in visual acuity, redness, or eye pain [] HENT: Denies nasal congestion or sore throat [] Respiratory: Denies cough or shortness of breath [] Cardiovascular: No additional information not addressed in HPI [] GI: Denies abdominal pain, nausea, vomiting, bloody stools or diarrhea [] : Denies dysuria or hematuria [] Musculoskeletal: left knee pain [] Integument: Denies rash or skin lesions [] Neurologic: Denies headache, focal weakness or sensory changes [] Endocrine: Denies polyuria or polydipsia [] All other systems were reviewed and found to be within normal limits, except as documented in this note. Allergies Allergies Allergies Coded Allergies Type Severity Reaction Last Updated Verified Sulfa (Sulfonamide Antibiotics) Allergy Unknown 02/04/18 Yes citric acid Allergy Unknown 02/04/18 Yes shellfish derived Allergy Unknown 02/04/18 Yes Physical Exam Physical Exam Constitutional: Well developed, well nourished, no acute distress, non-toxic appearance. [] HENT: Normocephalic, atraumatic, bilateral external ears normal, oropharynx moist, no oral exudates, nose normal. [] Eyes: PERRLA, EOMI, conjunctiva normal, no discharge. [] Neck: Normal range of motion, no tenderness, supple, no stridor. [] Cardiovascular:Heart rate regular rhythm, no murmur [] Lungs & Thorax: Bilateral breath sounds clear to auscultation [] Abdomen: Bowel sounds normal, soft, no tenderness, no masses, no pulsatile masses. [] Skin: Warm, dry, no erythema, no rash. [] Back: No tenderness, no CVA tenderness. [] Extremities: Suprapatellar swelling of the left knee. No ecchymosis. Diffuse tenderness to the anterior and lateral knee.[] Neurologic: Alert and oriented X 3, normal motor function, normal sensory function, no focal deficits noted. [] Psychologic: Affect normal, judgement normal, mood normal. [] EKG EKG [] Radiology/Procedures Radiology/Procedures [] Impressions: History: Fall last night, pain. Comparison: None. Findings: AP, lateral, oblique, and tunnel views of the left knee. No acute fracture or dislocation is identified. Fabella is noted. Small joint effusion is seen. Small quadriceps tendon insertional enthesophyte is present. Impression: 1. No acute osseous abnormality identified. 2. Small joint effusion. Electronically signed by: Chaitanya Hills MD (05/18/2018 10:13 AM) [facility] DICTATED AND SIGNED BY: CHAITANYA HILLS MD DATE: 05/18/18 1012 CC: RICHARD GLOVER DO; GABRIEL DO MD Course & Med Decision Making Course & Med Decision Making Pertinent Labs and Imaging studies reviewed. (See chart for details) The patient's knee x-ray is negative for fracture. I will try an Rafael wrap to help with the swelling. The patient is already on strong narcotic pain medication. I will ask that she continue to take this. I have added naproxen 500mg twice a day for a few days. She is stable for discharge at this time. [] Dragon Disclaimer Dragon Disclaimer This electronic medical record was generated, in whole or in part, using a voice recognition dictation system. Departure Departure: Referrals: GABRIEL DO MD (PCP) Scripts Naproxen (NAPROXEN) 500 Mg Tablet 1 TAB PO BID PRN for PAIN, #30 TAB 0 Refills Prov: RICHARD GLOVER DO 05/18/18 RICHARD GLOVER DO May 18, 2018 09:54
[2018-05-18] MEDS: HYDROmorphone PF 1 MG/ML DISP.SYRIN IM ONE (10:07)
--- NOTE | 2018-05-18 10:17 | RAD ---
History: Fall last night, pain. Comparison: None. Findings: AP, lateral, oblique, and tunnel views of the left knee. No acute fracture or dislocation is identified. Fabella is noted. Small joint effusion is seen. Small quadriceps tendon insertional enthesophyte is present. Impression: 1. No acute osseous abnormality identified. 2. Small joint effusion. Electronically signed by: Chaitanya Hills MD (05/18/2018 10:13 AM) [facility]
[2018-05-18 12:01] VITALS: BP 116/70
[2018-05-18] MEDS ORDERED: NAPR-514 PO (12:04)
== END 2018-05-18 12:12 | disposition home or self-care (01) ==
LOC: ER 09:17
DX: M25.462 Effusion, left knee (principal); M25.562 Pain in left knee; G89.11 Acute pain due to trauma; J45.909 Unspecified asthma, uncomplicated; I50.9 Heart failure, unspecified; Z88.2 Allergy status to sulfonamides; Z88.8 Allergy status to other drugs, medicaments and biological substances; Z91.013 Allergy to seafood; W08.XXXA Fall from other furniture, initial encounter; Y93.89 Activity, other specified; Y92.89 Other specified places as the place of occurrence of the external cause; Y99.8 Other external cause status
CPT/HCPCS: 73564; 96372; 99283; J1170

== ENCOUNTER 2018-07-12 17:37 | Emergency (ER) | payer OTHER ==
[~2018-07-12] VITALS: Ht 157.5 cm; Wt 84.0 kg
[~2018-07-12 17:37] MED LIST changes: +NAPR-514 PO
[2018-07-12 18:02] VITALS: BP 119/91
--- NOTE | 2018-07-12 18:09 | PHYS DOC ---
Past History Past Medical History: Asthma, CHF, Other Additional Past Medical Histor: adrenal insufficiency, spinal stenosis, pulmonary embolism Past Surgical History: Cholecystectomy, Hysterectomy, Tonsillectomy, Other Additional Past Surgical Histo: gastrectomy, ventral hernia repair Alcohol Use: None Drug Use: None Adult General Chief Complaint Chief Complaint: URINE CATHETER PROBLEM [facility] HPI 42-year-old female presents with suprapubic catheter failure. The patient had a long history of rectal urinary retention. They attempted to do on a regular Ellis catheters for a while but had multiple occasions. A suprapubic catheter was placed. The patient has had this for some time. Today she was doing regular maintenance with it seemed like it wasn't sitting in the proper position. She pulled fluid out of the balloon and fluid came out she thought she needed a inflate the balloon she pushed catheter and a little bit and then reinflated the balloon. Melena she'll go, the catheter fell completely out. When she inspected the catheter outside the body, she realized that the balloon had ruptured. Patient does not have any catheter supplies at home. This occurred about one hour ago. Patient is having bladder fullness. She has not been able to urinate normally for more than 2 years. She denies fever or chills. He has no other complaints. Review of Systems Review of Systems Constitutional: Denies fever or chills [] Eyes: Denies change in visual acuity, redness, or eye pain [] HENT: Denies nasal congestion or sore throat [] Respiratory: Denies cough or shortness of breath [] Cardiovascular: No additional information not addressed in HPI [] GI: Denies abdominal pain, nausea, vomiting, bloody stools or diarrhea [] : Urinary retention, suprapubic catheter failure[] Musculoskeletal: Denies back pain or joint pain [] Integument: Denies rash or skin lesions [] Neurologic: Denies headache, focal weakness or sensory changes [] Endocrine: Denies polyuria or polydipsia [] All other systems were reviewed and found to be within normal limits, except as documented in this note. Allergies Allergies Allergies Coded Allergies Type Severity Reaction Last Updated Verified Sulfa (Sulfonamide Antibiotics) Allergy Unknown 02/04/18 Yes citric acid Allergy Unknown 02/04/18 Yes shellfish derived Allergy Unknown 02/04/18 Yes Physical Exam Physical Exam Constitutional: Well developed, well nourished, no acute distress, non-toxic appearance. [] HENT: Normocephalic, atraumatic, bilateral external ears normal, oropharynx moist, no oral exudates, nose normal. [] Eyes: PERRLA, EOMI, conjunctiva normal, no discharge. [] Neck: Normal range of motion, no tenderness, supple, no stridor. [] Cardiovascular:Heart rate regular rhythm, no murmur [] Lungs & Thorax: Bilateral breath sounds clear to auscultation [] Abdomen: Bowel sounds normal, soft, no tenderness, no masses, no pulsatile masses. Suprapubic catheter site [] Skin: Warm, dry, no erythema, no rash. [] Back: No tenderness, no CVA tenderness. [] Extremities: No tenderness, no cyanosis, no clubbing, ROM intact, no edema. [] Neurologic: Alert and oriented X 3, normal motor function, normal sensory function, no focal deficits noted. [] Psychologic: Affect normal, judgement normal, mood normal. [] EKG EKG [] Radiology/Procedures Radiology/Procedures [] Course & Med Decision Making Course & Med Decision Making Pertinent Labs and Imaging studies reviewed. (See chart for details) We were able to find a compatible size suprapubic catheter replacement. The patient requested to inserted herself. She had no complications and everything was working properly afterwards. I will give the patient a prophylactic prescription for UTI given her increased risk after having a catheter fall out. She is stable for discharge at this time. [] Dragon Disclaimer Dragon Disclaimer This electronic medical record was generated, in whole or in part, using a voice recognition dictation system. Departure Departure: Impression: Primary Impression: Urinary catheter complication Disposition: 01 HOME, SELF-CARE Condition: STABLE Referrals: GABRIEL DO MD (PCP) Patient Instructions: Suprapubic Catheter Replacement, Care After Scripts Cephalexin (KEFLEX) 500 Mg Capsule 1 CAP PO TID for uti, #21 CAP Prov: RICHARD GLOVER DO 07/12/18 Problem Qualifiers Primary Impression: Urinary catheter complication Encounter type: initial encounter Qualified Codes: T83.9XXA - Unspecified complication of genitourinary prosthetic device, implant and graft, initial encounter RICHARD GLOVER DO Jul 12, 2018 18:09
[2018-07-12] MEDS ORDERED: CEPH-264 PO (18:36)
[2018-10-13] MEDS ORDERED: CIPR500T94 PO (14:39)
[2018-10-13] MEDS ORDERED: METR-111 PO (14:39)
[2019-01-24] MEDS ORDERED: CEFE1FRO IV (14:51)
== END 2018-07-12 18:42 | disposition home or self-care (01) ==
LOC: ER 17:37
DX: T83.9XXA Unspecified complication of genitourinary prosthetic device, implant and graft, initial encounter (principal); R33.9 Retention of urine, unspecified; J45.909 Unspecified asthma, uncomplicated; I50.9 Heart failure, unspecified; I26.99 Other pulmonary embolism without acute cor pulmonale; Z88.2 Allergy status to sulfonamides; Z88.8 Allergy status to other drugs, medicaments and biological substances; Z91.013 Allergy to seafood
CPT/HCPCS: 99284

== ENCOUNTER 2018-08-12 13:10 | Emergency (ER) | payer MEDICARE, OTHER ==
[~2018-08-12] VITALS: Ht 152.4 cm; Wt 80.3 kg
[~2018-08-12 13:10] MED LIST changes: +CEPH-264 PO
[2018-08-12] MEDS ORDERED: BACI120O TP (13:44)
--- NOTE | 2018-08-12 13:44 | PHYS DOC ---
Past History Past Medical History: Asthma, CHF, Other Additional Past Medical Histor: adrenal insufficiency, spinal stenosis, pulmonary embolism Past Surgical History: Cholecystectomy, Hysterectomy, Tonsillectomy, Other Additional Past Surgical Histo: gastrectomy, ventral hernia repair Alcohol Use: None Drug Use: None Adult General Chief Complaint Chief Complaint: burn HPI HPI 42-year-old female presenting to the emergency department today after sustaining a burn to her left pinky. This happened approximately 24 hours ago. The burn had a blister which has since come off. She also has a chronic left elbow wound that is about 1-1/2 cm in diameter that is been present for at least 2 months. She has a mild pain in the wound that is nonradiating intermittent and without alleviating factors. She is been using topical antibiotic ointment which has mildly improved her symptoms but her wound is not healing. Review of systems is negative for chest pain shortness of breath abdominal pain fevers chills nausea or vomiting. All other review of systems is negative unless otherwise noted in history of present illness. ED course: 42-year-old female presenting the emergency department today with a burn to her left pinky. On examination she has a one and half centimeter burn to the palmar aspect of her left distal pinky. It appears to be second-degree burn. It does not appear to be infected. The chronic wound underneath her elbow is an ulceration maximally 1.5 cm in diameter circular in appearance. No erythema or suggestions of infection. It is not warm to touch. Otherwise the remainder the exam is unremarkable. We'll give her topical antibiotic for her burn of her pinky and refer her to our wound clinic at [facility]. Also, I recommend good control of her DM through her pcp. Tetanus was updated here in the emergency department. The patient has been examined and was not found to have an emergency medical condition. The patient was then discharged home in stable condition to follow up with their primary care physician over the next 1-2 days. They were to return if their symptoms worsened or if they were concerned for any reason. They were also instructed to return to the emergency department if they were unable to get the recommended and appropriate follow-up. [id number] discharge instructions and return precautions were given. Patient's questions were answered to their satisfaction. Patient is comfortable with plan. Review of Systems Review of Systems SEE ABOVE. Allergies Allergies Allergies Coded Allergies Type Severity Reaction Last Updated Verified Sulfa (Sulfonamide Antibiotics) Allergy Unknown 02/04/18 Yes citric acid Allergy Unknown 02/04/18 Yes shellfish derived Allergy Unknown 02/04/18 Yes Physical Exam Physical Exam SEE ABOVE Constitutional: Well developed, well nourished, no acute distress, non-toxic appearance. HENT: Normocephalic, atraumatic, bilateral external ears normal, oropharynx moist, no oral exudates, nose normal. [] Eyes: PERRLA, EOMI, conjunctiva normal, no discharge. Neck: Normal range of motion, no tenderness, supple, no stridor. [] Cardiovascular:Heart rate regular rhythm, no murmur Lungs & Thorax: Bilateral breath sounds clear to auscultation [] Abdomen: Bowel sounds normal, soft, no tenderness, no masses, no pulsatile masses. Skin: as above. otherwise normal. Back: No tenderness, no CVA tenderness. [] Extremities: No tenderness, no cyanosis, no clubbing, ROM intact, no edema. [] Neurologic: Alert and oriented X 3, normal motor function, normal sensory function, no focal deficits noted. Psychologic: Affect normal, judgement normal, mood normal. [] EKG EKG [] Radiology/Procedures Radiology/Procedures [] Course & Med Decision Making Course & Med Decision Making Pertinent Labs and Imaging studies reviewed. (See chart for details) [] Dragon Disclaimer Dragon Disclaimer This electronic medical record was generated, in whole or in part, using a voice recognition dictation system. Departure Departure: Impression: Primary Impression: Burn Additional Impression: Skin ulcer Disposition: 01 HOME, SELF-CARE Condition: STABLE Referrals: GABRIEL DO MD (PCP) Patient Instructions: Burn Care, Wound Care, [id number] Additional Instructions: Thank you for allowing us to participate in your care today. Return to the emergency department you have any new or worsening symptoms, or if you are concerned for any reason. Return to emergency department if you have any new or concerning symptoms including but not limited to fever, chills, nausea, vomiting, intractable pain, any new rashes, chest pain, shortness of air , uncontrolled bleeding, difficulty breathing, and/or vision loss. Follow up with your primary care physician within 1-2 days. Call your Primary Doctor tomorrow and inform them of your visit today. If you do not have a primary care provider we are happy to provide you with a list of our primary care providers contact information. This condition should be evaluated by your primary care physician and any recommended consulting services for continued management within 2 days after discharge. If at any time, you are having difficulty getting into your primary care doctor or a specialist, return to the emergency department. Scripts Bacitracin Zinc (BACITRACIN ZINC) 120 Gm Oint...g. 120 GM TP TID for burn for 5 Days, #1 MISC Prov: NARCISO PASTOR MD 08/12/18 Problem Qualifiers NARCISO PASTOR MD Aug 12, 2018 13:44
[2018-08-12] MEDS ORDERED: DIPHTH,PERTUSS(ACELL),TET TOX 0.5 ML DISP.SYRIN. VAX IM ONE (13:45)
[2018-08-12 14:01] VITALS: BP 97/64
[2018-10-13] MEDS ORDERED: METR-111 PO (14:39)
[2018-10-13] MEDS ORDERED: CIPR500T94 PO (14:39)
== END 2018-08-12 14:10 | disposition home or self-care (01) ==
LOC: ER 13:10
DX: T23.222A Burn of second degree of single left finger (nail) except thumb, initial encounter (principal); L98.499 Non-pressure chronic ulcer of skin of other sites with unspecified severity; S51.002A Unspecified open wound of left elbow, initial encounter; J45.909 Unspecified asthma, uncomplicated; I50.9 Heart failure, unspecified; Z86.711 Personal history of pulmonary embolism; Z88.2 Allergy status to sulfonamides; Z91.013 Allergy to seafood; Z91.018 Allergy to other foods; X08.8XXA Exposure to other specified smoke, fire and flames, initial encounter; Y93.89 Activity, other specified; Y92.89 Other specified places as the place of occurrence of the external cause; Y99.8 Other external cause status
CPT/HCPCS: 16020; 90471; 90715; 99284

== ENCOUNTER 2018-09-18 12:37 | Emergency (ER) | payer OTHER ==
[~2018-09-18] VITALS: Ht 157.5 cm; Wt 84.0 kg
[~2018-09-18 12:37] MED LIST changes: +BACI120O TP
[2018-09-18 12:50] VITALS: BP 112/71
--- NOTE | 2018-09-18 13:06 | PHYS DOC ---
Past History Past Medical History: Asthma, CHF, CVA, Diabetes, Hypertension, Other Additional Past Medical Histor: adrenal insufficiency, spinal stenosis, pulmonary embolism Past Surgical History: Cholecystectomy, Hysterectomy, Tonsillectomy, Other Additional Past Surgical Histo: gastrectomy, ventral hernia repair Alcohol Use: None Drug Use: None Adult General Chief Complaint Chief Complaint: MECHANICAL FALL HPI HPI 42-year-old female presents after fall at home. The patient was letting her dog out the back door yesterday when she tripped and fell onto the concrete porch. She has pain and bruising in the left knee and pain over the left clavicle. Clavicle is very tender to the touch. The patient is able to walk on the left knee, but is very painful. The patient has a long history of medical problems and chronic issues. She's had multiple surgeries. She has a suprapubic catheter. She denies fever or chills. She is currently being treated for skin infection with doxycycline and mupirocin. Review of Systems Review of Systems Constitutional: Denies fever or chills [] Eyes: Denies change in visual acuity, redness, or eye pain [] HENT: Denies nasal congestion or sore throat [] Respiratory: Denies cough or shortness of breath [] Cardiovascular: No additional information not addressed in HPI [] GI: Denies abdominal pain, nausea, vomiting, bloody stools or diarrhea [] : Denies dysuria or hematuria [] Musculoskeletal: Left knee pain, left clavicle pain[] Integument: Denies rash or skin lesions [] Neurologic: Denies headache, focal weakness or sensory changes [] Endocrine: Denies polyuria or polydipsia [] All other systems were reviewed and found to be within normal limits, except as documented in this note. Allergies Allergies Allergies Coded Allergies Type Severity Reaction Last Updated Verified Sulfa (Sulfonamide Antibiotics) Allergy Unknown 02/04/18 Yes citric acid Allergy Unknown 02/04/18 Yes shellfish derived Allergy Unknown 02/04/18 Yes Physical Exam Physical Exam Constitutional: Well developed, well nourished, no acute distress, non-toxic appearance. [] HENT: Normocephalic, atraumatic, bilateral external ears normal, oropharynx moist, no oral exudates, nose normal. [] Eyes: PERRLA, EOMI, conjunctiva normal, no discharge. [] Neck: Normal range of motion, no tenderness, supple, no stridor. [] Cardiovascular:Heart rate regular rhythm, no murmur [] Lungs & Thorax: Bilateral breath sounds clear to auscultation [] Abdomen: Bowel sounds normal, soft, no tenderness, no masses, no pulsatile masses. [] Skin: Warm, dry, no erythema, no rash. [] Back: No tenderness, no CVA tenderness. [] Extremities: Diffuse tenderness of the left knee with bruising, no obvious deformity. Tenderness over the left clavicle, no obvious deformity.[] Neurologic: Alert and oriented X 3, normal motor function, normal sensory function, no focal deficits noted. [] Psychologic: Affect normal, judgement normal, mood normal. [] Current Patient Data Vital Signs Vital Signs Date Time Temp Pulse Resp B/P (MAP) Pulse Ox O2 Delivery O2 Flow Rate FiO2 09/18/18 12:50 98.5 83 20 94 09/18/18 12:50 112/71 (85) Room Air EKG EKG [] Radiology/Procedures Radiology/Procedures [] Impressions: Examination: CLAVICLE LEFT History: Fall today, Left knee and anterior clavicle pain Comparison/Correlation: None Findings: Two-view left clavicle x-ray exam was performed. No acute fracture or bony destruction identified. Acromioclavicular joint space is adequate. Impression: No acute process. Electronically signed by: Yeni Kiser MD (09/18/2018 1:26 PM) [facility] DICTATED AND SIGNED BY: YENI KISER MD DATE: 09/18/18 132 CC: RICHARD GLOVER DO; GABRIEL DO MD ~ Examination: KNEE LEFT 3V History: Fall today, Left knee and anterior clavicle pain Comparison/Correlation: None Findings: Total 3 images of the left knee were obtained. Osteopenia is present. Joint spaces are unremarkable. No acute fracture or bony destruction. Soft tissues are unremarkable. Impression: Osteopenia. Electronically signed by: Yeni Kiser MD (09/18/2018 1:27 PM) [facility] DICTATED AND SIGNED BY: YENI KISER MD DATE: 09/18/186 CC: RICHARD GLOVER DO; GABRIEL DO MD Course & Med Decision Making Course & Med Decision Making Pertinent Labs and Imaging studies reviewed. (See chart for details) The patient has no acute fractures. I believe she just has contusions. I will discharge her with a short course of tramadol. She is stable for discharge at this time. [] Dragon Disclaimer Dragon Disclaimer This electronic medical record was generated, in whole or in part, using a voice recognition dictation system. Departure Departure: Impression: Primary Impression: Contusion of left knee Additional Impression: Contusion of left clavicle Disposition: HOME, SELF-CARE Condition: STABLE Referrals: GABRIEL DO MD (PCP) Patient Instructions: Contusion, [id number] Scripts Tramadol Hcl (TRAMADOL HCL) 50 Mg Tablet 50 MG PO PRN Q6HRS PRN for PAIN, #14 TAB Prov: RICHARD GLOVER DO 09/18/18 Problem Qualifiers Primary Impression: Contusion of left knee Encounter type: initial encounter Qualified Codes: S80.02XA - Contusion of left knee, initial encounter Additional Impression: Contusion of left clavicle Encounter type: initial encounter Qualified Codes: S40.012A - Contusion of left shoulder, initial encounter RICHARD GLOVER DO Sep 18, 2018 13:06
--- NOTE | 2018-09-18 13:29 | RAD ---
Examination: CLAVICLE LEFT History: Fall today, Left knee and anterior clavicle pain Comparison/Correlation: None Findings: Two-view left clavicle x-ray exam was performed. No acute fracture or bony destruction identified. Acromioclavicular joint space is adequate. Impression: No acute process. Electronically signed by: Hoang Foster MD (09/18/2018 1:26 PM) [facility]
--- NOTE | 2018-09-18 13:30 | RAD ---
Examination: KNEE LEFT 3V History: Fall today, Left knee and anterior clavicle pain Comparison/Correlation: None Findings: Total 3 images of the left knee were obtained. Osteopenia is present. Joint spaces are unremarkable. No acute fracture or bony destruction. Soft tissues are unremarkable. Impression: Osteopenia. Electronically signed by: Hoang Foster MD (09/18/2018 1:27 PM) [facility]
[2018-09-18] MEDS ORDERED: TRAM50TA PO (14:12)
[2018-10-13] MEDS ORDERED: CIPR500T94 PO (14:39)
[2018-10-13] MEDS ORDERED: METR-111 PO (14:39)
== END 2018-09-18 14:31 | disposition home or self-care (01) ==
LOC: ER 12:37
DX: S80.02XA Contusion of left knee, initial encounter (principal); S40.012A Contusion of left shoulder, initial encounter; J45.909 Unspecified asthma, uncomplicated; I11.0 Hypertensive heart disease with heart failure; I50.9 Heart failure, unspecified; E11.9 Type 2 diabetes mellitus without complications; Z86.73 Personal history of transient ischemic attack (TIA), and cerebral infarction without residual deficits; Z86.711 Personal history of pulmonary embolism; Z88.2 Allergy status to sulfonamides; Z91.013 Allergy to seafood; Z91.018 Allergy to other foods; W18.09XA Striking against other object with subsequent fall, initial encounter; Y93.89 Activity, other specified; Y92.098 Other place in other non-institutional residence as the place of occurrence of the external cause; Y99.8 Other external cause status
CPT/HCPCS: 29505; 73000; 73562; 99284

== ENCOUNTER 2018-10-10 12:22 | Inpatient (IN) | payer OTHER ==
[~2018-10-10] VITALS: Ht 157.5 cm; Wt 79.4 kg
[~2018-10-10 12:22] MED LIST changes: +TRAM50TA PO
[2018-10-10] MEDS ORDERED: IV NORMAL SALINE 1,000ML 1,000 ML IV ONE ×2 (12:45→16:15)
--- NOTE | 2018-10-10 12:51 | PHYS DOC ---
Past History Past Medical History: Asthma, CHF, Other Additional Past Medical Histor: adrenal insufficiency, spinal stenosis, pulmonary embolism Past Surgical History: Cholecystectomy, Hysterectomy, Tonsillectomy, Other Additional Past Surgical Histo: gastrectomy, ventral hernia repair Alcohol Use: None Drug Use: None Adult General Chief Complaint Chief Complaint: MULTIPLE COMPLAINTS HPI HPI 42-year-old female presents with nausea, vomiting, and chills last couple of days. Patient has been feeling generally ill for 2 days. She has had vomiting yesterday and today. She became more concerned today when she started to have chills and noticed that her urine was darker. The patient has a chronic suprapubic catheter and a long history of abdominal surgeries. She believe she is dehydrated, but is concerned about infection. On arrival to the ED, she did not have a fever. Review of Systems Review of Systems Constitutional: chills [] Eyes: Denies change in visual acuity, redness, or eye pain [] HENT: Denies nasal congestion or sore throat [] Respiratory: Denies cough or shortness of breath [] Cardiovascular: No additional information not addressed in HPI [] GI: mild abdominal pain, nausea, vomiting. Denies bloody stools or diarrhea [] : Denies dysuria or hematuria [] Musculoskeletal: Denies back pain or joint pain [] Integument: Denies rash or skin lesions [] Neurologic: Denies headache, focal weakness or sensory changes [] Endocrine: Denies polyuria or polydipsia [] All other systems were reviewed and found to be within normal limits, except as documented in this note. Current Medications Current Medications Current Medications Medications (Trade) Dose Ordered Sig/Mani Start Time Stop Time Status Last Admin Dose Admin Ondansetron HCl (Zofran) 4 mg 1X ONCE 10/10/18 12:45 10/10/18 12:46 UNV Sodium Chloride 1,000 ml @ 1,000 mls/hr 1X ONCE 10/10/18 12:45 10/10/18 13:44 UNV Allergies Allergies Allergies Coded Allergies Type Severity Reaction Last Updated Verified Sulfa (Sulfonamide Antibiotics) Allergy Unknown 02/04/18 Yes citric acid Allergy Unknown 02/04/18 Yes shellfish derived Allergy Unknown 02/04/18 Yes Physical Exam Physical Exam Constitutional: Well developed, well nourished, no acute distress, non-toxic appearance. [] HENT: Normocephalic, atraumatic, bilateral external ears normal, oropharynx moist, no oral exudates, nose normal. [] Eyes: PERRLA, EOMI, conjunctiva normal, no discharge. [] Neck: Normal range of motion, no tenderness, supple, no stridor. [] Cardiovascular:Heart rate regular rhythm, no murmur [] Lungs & Thorax: Bilateral breath sounds clear to auscultation [] Abdomen: Bowel sounds normal, soft, mild suprapubic tenderness, suprapubic catheter in place. no masses, no pulsatile masses. [] Skin: Warm, dry, no erythema, no rash. [] Back: No tenderness, no CVA tenderness. [] Extremities: No tenderness, no cyanosis, no clubbing, ROM intact, no edema. [] Neurologic: Alert and oriented X 3, normal motor function, normal sensory function, no focal deficits noted. [] Psychologic: Affect normal, judgement normal, mood normal. [] Current Patient Data Vital Signs Vital Signs Date Time Temp Pulse Resp B/P (MAP) Pulse Ox O2 Delivery O2 Flow Rate FiO2 10/10/18 12:28 98.5 115 18 95 Room Air EKG EKG [] Radiology/Procedures Radiology/Procedures [] Impressions: CT study of the abdomen and pelvis with contrast Clinical indications: Urinary tract infection. Discolored urine. TECHNIQUE: After IV infusion of 75 cc of Omnipaque 300, helical CT scanning of the abdomen and pelvis was performed. No GI contrast was administered. This may decrease the sensitivity to detect GI tract pathology. PQRS compliance Statement One or more of the following individualized dose reduction techniques were utilized for this study: 1. Automated exposure control 2. Adjustment of the mA and/or kV according to patient size 3. Use of iterative reconstruction technique COMPARISON: November 29, 2017. FINDINGS: The liver and spleen and pancreas are normal. The gallbladder is surgically absent. No extrahepatic biliary ductal dilatation is seen. No adrenal mass is evident. Both kidneys are normal without hydronephrosis or hydroureter. No perinephric inflammatory change or free fluid is evident. There are no radiographic findings indicative of pyelonephritis. A suprapubic catheter is seen within the urinary bladder. The balloon is located within the lumen. Small air-fluid level is seen as a result. No urinary bladder wall thickening is evident. Uterus is surgically absent. There is a cyst of the left ovary measuring 2.7 cm. This is new. No focal aneurysmal dilatation of the abdominal aorta is seen. No enlarged abdominal or pelvic lymphadenopathy is evident. The patient has a history of gastrectomy and partial small bowel resection. There is wall thickening of the distal colon which includes the rectum and sigmoid colon and descending colon and transverse colon. No obstructive bowel pattern is evident. The appendix is not seen but there are no secondary CT findings of appendicitis. Small anterior abdominal wall hernia is seen just to the right of midline with contains antimesenteric side of a loop of large bowel. This is unchanged. No bowel thickening or inflammatory change is seen here. No free air or free fluid or mesenteric edema is seen. No lung base consolidation is seen. No lytic process is evident. IMPRESSION: Postoperative changes. No bowel obstruction is evident. Colitis of the distal large bowel. 2.7 cm left ovarian cyst. Grade 1 anterolisthesis of L5-S1 secondary to bilateral spondylolysis of L5. Electronically signed by: Klaudia Forde MD (10/10/2018 3:55 PM) [place] [id number] DICTATED AND SIGNED BY: KLAUDIA FORDE MD DATE: 10/10/18 1555 CC: RICHARD GLOVER DO; GABRIEL DO MD ~ Course & Med Decision Making Course & Med Decision Making Pertinent Labs and Imaging studies reviewed. (See chart for details) Patient's labs are unremarkable. Her urinalysis is indicative of urinary tract infection. I will give her 1 g of Rocephin in the ED. CT scan of the abdomen also shows colitis. No obvious pyelonephritis. I have had to give the patient 8 mg of morphine for pain control in the ED. I discussed the patient with Dr. Simon and he has agreed to admit the patient for further management. [] Dragon Disclaimer Dragon Disclaimer This electronic medical record was generated, in whole or in part, using a voice recognition dictation system. Departure Departure: Impression: Primary Impression: Complicated urinary tract infection Additional Impression: Colitis Disposition: 09 ADMITTED INPATIENT Admitting Physician: Lenin Simon Condition: STABLE Referrals: GABRIEL DO MD (PCP) Problem Qualifiers RICHARD GLOVER DO Oct 10, 2018 12:51
[2018-10-10] MEDS ORDERED: ONDANSETRON PF 4 MG/2 ML VIAL. IV ONE (13:15)
[2018-10-10 13:17] LABS: BASO # 0.1 x10^3/uL (0.0-0.2); BASO % 1 % (0-3); EOS # 0.1 x10^3/uL (0.0-0.7); EOS % 1 % (0-3); HEMATOCRIT 39.3 % (36.0-47.0); HEMOGLOBIN 12.9 g/dL (12.0-15.5); LYMPH # 1.8 x10^3/uL (1.0-4.8); LYMPH % 21 % (24-48); MEAN CORPUSCULAR HEMOGLOBIN 32 pg (25-35); MEAN CORPUSCULAR HGB CONC 33 g/dL (31-37); MEAN CORPUSCULAR VOLUME 98 fL (79-100); MONO # 0.3 x10^3/uL (0.0-1.1); MONO % 4 % (0-9); NEUT % 73 % (31-73); PLATELET COUNT 163 x10^3/uL (140-400); RED BLOOD COUNT 4.01 x10^6/uL (3.50-5.40); RED CELL DISTRIBUTION WIDTH 13.5 % (11.5-14.5); WHITE BLOOD COUNT 8.2 x10^3/uL (4.0-11.0)
[2018-10-10 13:28] LABS: ALBUMIN 3.1 g/dL (3.4-5.0); CALCIUM 8.7 mg/dL (8.5-10.1); GFR 60.5; POTASSIUM 3.6 mmol/L (3.5-5.1); TOTAL BILIRUBIN 0.4 mg/dL (0.2-1.0); TOTAL PROTEIN 6.1 g/dL (6.4-8.2)
[2018-10-10] MEDS ORDERED: MORPHINE SULFATE 4 MG/ML DISP.SYRIN. IV ONE ×2 (14:15→16:30)
[2018-10-10 14:16] LABS: BILIRUBIN,URINE NEG (NEG); CLARITY,URINE TURBID; COLOR,URINE AMBER; GLUCOSE,URINE NEG (NEG)
[2018-10-10 14:17] LABS: BACTERIA,URINE MOD /HPF (0-FEW); NITRITE,URINE POS (NEG); RBC,URINE >40 /HPF (0-2); SQUAMOUS EPITHELIAL CELL,UR FEW /LPF; UROBILINOGEN,URINE 1 mg/dL (0.2 mg/dL); WBC,URINE 20-40 /HPF (0-4)
[2018-10-10 14:18] LABS: AMORPHOUS SEDIMENT,UR PRESENT /HPF; GRANULAR CASTS,URINE OCC /HPF
[2018-10-10] MEDS ORDERED: IOHEXOL 300 MG/ML 75 ML VIAL. IV ONE (15:30)
--- NOTE | 2018-10-10 15:58 | RAD ---
CT study of the abdomen and pelvis with contrast Clinical indications: Urinary tract infection. Discolored urine. TECHNIQUE: After IV infusion of 75 cc of Omnipaque 300, helical CT scanning of the abdomen and pelvis was performed. No GI contrast was administered. This may decrease the sensitivity to detect GI tract pathology. PQRS compliance Statement One or more of the following individualized dose reduction techniques were utilized for this study: 1. Automated exposure control 2. Adjustment of the mA and/or kV according to patient size 3. Use of iterative reconstruction technique COMPARISON: November 29, 2017. FINDINGS: The liver and spleen and pancreas are normal. The gallbladder is surgically absent. No extrahepatic biliary ductal dilatation is seen. No adrenal mass is evident. Both kidneys are normal without hydronephrosis or hydroureter. No perinephric inflammatory change or free fluid is evident. There are no radiographic findings indicative of pyelonephritis. A suprapubic catheter is seen within the urinary bladder. The balloon is located within the lumen. Small air-fluid level is seen as a result. No urinary bladder wall thickening is evident. Uterus is surgically absent. There is a cyst of the left ovary measuring 2.7 cm. This is new. No focal aneurysmal dilatation of the abdominal aorta is seen. No enlarged abdominal or pelvic lymphadenopathy is evident. The patient has a history of gastrectomy and partial small bowel resection. There is wall thickening of the distal colon which includes the rectum and sigmoid colon and descending colon and transverse colon. No obstructive bowel pattern is evident. The appendix is not seen but there are no secondary CT findings of appendicitis. Small anterior abdominal wall hernia is seen just to the right of midline with contains antimesenteric side of a loop of large bowel. This is unchanged. No bowel thickening or inflammatory change is seen here. No free air or free fluid or mesenteric edema is seen. No lung base consolidation is seen. No lytic process is evident. IMPRESSION: Postoperative changes. No bowel obstruction is evident. Colitis of the distal large bowel. 2.7 cm left ovarian cyst. Grade 1 anterolisthesis of L5-S1 secondary to bilateral spondylolysis of L5. Electronically signed by: Abhay Fodre MD (10/10/2018 3:55 PM) [place] [id number]
[2018-10-10] MEDS ORDERED: cefTRIAXone SODIUM 1 GM VIAL ONE (16:10)
[2018-10-10] MEDS ORDERED: IV NORMAL SALINE 50ML 50 ML ONE (16:10)
[2018-10-10] MEDS ORDERED: PROCHLORPERAZINE 10 MG/2 ML VIAL. IV ONE (17:00)
[2018-10-10 17:23] VITALS: BP 105/70
[2018-10-10] MEDS ORDERED: FLUD0.1T PO (18:14)
[2018-10-10] MEDS ORDERED: MIRT30TA3 PO (18:14)
[2018-10-10] MEDS ORDERED: ASPI-630 PO (18:14)
[2018-10-10] MEDS ORDERED: POTA20TA4 PO (18:14)
[2018-10-10] MEDS ORDERED: HYDROCORTISONE PO (18:14)
[2018-10-10] MEDS ORDERED: RANI300C PO (18:14)
[2018-10-10] MEDS ORDERED: ASCO500T3 PO (18:14)
[2018-10-10] MEDS ORDERED: BACL20TA PO (18:14)
[2018-10-10] MEDS ORDERED: MELA3TAB2 PO (18:14)
[2018-10-10] MEDS ORDERED: GABA-585 PO (18:14)
[2018-10-10] MEDS ORDERED: SPIR25TA5 PO (18:14)
[2018-10-10] MEDS ORDERED: CYAN10002 IM (18:14)
[2018-10-10] MEDS ORDERED: TRAZ-86 PO (18:14)
[2018-10-10] MEDS ORDERED: PHEN-443 PO (18:14)
[2018-10-10] MEDS ORDERED: LEVO2TAB3 PO (18:14)
[2018-10-10] MEDS ORDERED: TOPI50TA8 PO (18:14)
[2018-10-10] MEDS ORDERED: DULO60CA6 PO (18:14)
[2018-10-10] MEDS ORDERED: GUAI600T47 PO (18:14)
[2018-10-10] MEDS ORDERED: MULT1TAB52 PO (18:14)
[2018-10-10] MEDS ORDERED: FURO40TA4 PO (18:14)
[2018-10-10] MEDS ORDERED: PANT40TA5 PO (18:14)
[2018-10-10] MEDS ORDERED: NITR50CA PO (18:15)
[2018-10-10] MEDS ORDERED: MELATONIN 3 MG TABLET PO PRN (20:15)
[2018-10-10] MEDS: POTASSIUM CL 40MEQ D5-0.45NACL 1,000 ML IV SCH (20:47)
[2018-10-10] MEDS: CIPROFLOXACIN 400MG PREMIX 200 ML IV SCH (20:47)
[2018-10-10] MEDS: traZODone 100 MG TABLET. PO SCH (20:48)
[2018-10-10] MEDS: MIRTAZAPINE 30 MG TABLET PO SCH (20:48)
[2018-10-10] MEDS: PHENAZOPYRIDINE 100 MG TABLET. PO SCH (20:48)
[2018-10-10] MEDS: BACLOFEN 20 MG TABLET PO SCH (20:48)
[2018-10-10] MEDS: TOPIRAMATE 25 MG TABLET. PO SCH (20:48)
[2018-10-10] MEDS: GABAPENTIN 100 MG CAPSULE. PO SCH (20:48)
[2018-10-10] MEDS: ASCORBIC ACID 500 MG TABLET PO SCH (20:48)
[2018-10-10 21:34] VITALS: BP 118/75
[2018-10-11] MEDS: POTASSIUM CL 40MEQ D5-0.45NACL 1,000 ML IV SCH ×2 (05:19→22:00)
[2018-10-11 05:38] VITALS: BP 116/78
[2018-10-11 06:46] LABS: BASO % 1 % (0-3); EOS # 0.2 x10^3/uL (0.0-0.7); EOS % 2 % (0-3); HEMATOCRIT 35.8 % (36.0-47.0); HEMOGLOBIN 11.7 g/dL (12.0-15.5); LYMPH # 1.6 x10^3/uL (1.0-4.8); LYMPH % 24 % (24-48); MEAN CORPUSCULAR HEMOGLOBIN 32 pg (25-35); MEAN CORPUSCULAR HGB CONC 33 g/dL (31-37); MEAN CORPUSCULAR VOLUME 99 fL (79-100); MONO # 0.3 x10^3/uL (0.0-1.1); MONO % 5 % (0-9); NEUT # 4.6 x10^3uL (1.8-7.7); NEUT % 68 % (31-73); PLATELET COUNT 129 x10^3/uL (140-400); RED BLOOD COUNT 3.63 x10^6/uL (3.50-5.40); RED CELL DISTRIBUTION WIDTH 13.5 % (11.5-14.5); WHITE BLOOD COUNT 6.7 x10^3/uL (4.0-11.0)
[2018-10-11 06:58] LABS: ALBUMIN 2.4 g/dL (3.4-5.0); ALBUMIN/GLOBULIN RATIO 0.9 (1.0-1.7); CREATININE 0.9 mg/dL (0.6-1.0); GFR 68.3; POTASSIUM 3.8 mmol/L (3.5-5.1); TOTAL BILIRUBIN 0.3 mg/dL (0.2-1.0); TOTAL PROTEIN 5.1 g/dL (6.4-8.2)
[2018-10-11] MEDS: PANTOPRAZOLE 40 MG TABLET. PO SCH (07:44)
[2018-10-11] MEDS: PHENAZOPYRIDINE 100 MG TABLET. PO SCH ×3 (08:48→21:32)
[2018-10-11] MEDS: ASPIRIN 81 MG TAB.CHEW PO SCH (08:49)
[2018-10-11] MEDS: GABAPENTIN 100 MG CAPSULE. PO SCH ×3 (08:49→20:03)
[2018-10-11] MEDS: BACLOFEN 20 MG TABLET PO SCH ×3 (08:49→20:03)
[2018-10-11] MEDS: TOPIRAMATE 25 MG TABLET. PO SCH ×2 (08:49→20:04)
[2018-10-11] MEDS: MULTIVITAMIN I-VITE TABLET. PO SCH (08:50)
[2018-10-11] MEDS: DULoxetine HCL 60 MG CAPSULE.DR PO SCH (08:50)
[2018-10-11] MEDS: FLUDROCORTISONE 0.1 MG TABLET PO SCH (08:51)
[2018-10-11] MEDS: ASCORBIC ACID 500 MG TABLET PO SCH ×3 (09:00→20:04)
[2018-10-11] MEDS: CIPROFLOXACIN 400MG PREMIX 200 ML IV SCH ×2 (09:53→20:01)
[2018-10-11 10:46] VITALS: BP 107/72
[2018-10-11 15:00] VITALS: BP 113/74
--- NOTE | 2018-10-11 15:51 | HP ---
ADMIT DATE: 10/10/2018 HISTORY OF PRESENT ILLNESS: The patient is a 42-year-old female patient who came to the Emergency Room complaining of recurrent bouts of nausea, vomiting, and chills that have been going on for the last few days. She has been generally feeling ill. Has had vomiting yesterday on the day of admission. She became more concerned when she started to have chills and noted that her urine was darker. She has had a chronic suprapubic catheter with a long history of abdominal surgeries. She was afebrile on arrival to the Emergency Room. She was extensively investigated and CT scan of the abdomen and pelvis showed that she has colitis of the distal large bowel. Her urinalysis also showed that she was positive for nitrite and leukocyte esterase as well as 20-40 wbc's and moderate amount of bacteria. The patient was admitted basically to treat both colitis and urinary tract infection. PAST MEDICAL HISTORY: Significant for bronchial asthma, COPD. She has also mild stroke, hypertension, MRSA, renal insufficiency, gastroparesis, lumbar spinal stenosis, C. diff, pulmonary embolism, hemorrhoids, hiatal hernia, body image disorder, kidney stones, foot drop, anxiety, depression and tobacco use. PAST SURGICAL HISTORY: Significant for tonsillectomy and adenoidectomy, cholecystectomy, gastrectomy and multiple abdominal surgeries with history of J-tube placement, ventral hernia repair by me, cyst excision and hysterectomy. ALLERGIES: She is allergic to SULFA, CITRIC ACID, and SHELLFISH. MEDICATIONS: She is currently on following medications: She is on nitrofurantoin macrocrystals 50 mg daily, baclofen 20 mg 3 times a day, spironolactone 25 mg twice a day, aspirin 81 mg once a day, levorphanol tartrate 2 mg every 6 hours, gabapentin 100 mg 3 times a day, topiramate 50 mg twice a day, duloxetine 60 mg daily. She is on mirtazapine 30 mg at bedtime, trazodone 100 mg p.o. at bedtime, potassium chloride 20 mEq twice a day, furosemide 40 mg 3 times a day. She is on guaifenesin 600 mg twice a day, ranitidine 300 mg daily. She is on Protonix 40 mg once a day, fludrocortisone acetate 100 mcg twice a day, phenazopyridine 100 mg twice a day, cyanocobalamin 1000 mcg/mL every 2 weeks. She is on ascorbic acid 500 mg 3 times a day, multivitamin 1 tablet twice a day, melatonin 3 mg at bedtime, and hydrocortisone 5 mg twice a day. FAMILY HISTORY: She has 2 brothers, both older and alive. Her older brother has diabetes and hypertension. The younger brother has hypertension. Her father is still alive at the age of 73. He is known to have myocardial infarction, and underwent 5-vessel coronary artery bypass graft surgery. Mother is alive at the age of 72 and she has had myocardial infarction for which she underwent PCI with stent deployment. SOCIAL HISTORY: She is . She has 1 son. She smokes half a pack a day, does not drink alcohol or use any drugs. 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 She denied any blurring of vision, cataract, glaucoma or macular degeneration. Denied any earache, tinnitus or sensorineural deafness. Denied any nosebleeds, stuffy nose or postnasal drip; however, she has MRSA infection in her face and has received about 5 courses of doxycycline since she moved from [place] the beginning of August. Did have nausea and vomiting, but denied any diarrhea or constipation. Denied any hematemesis, melena or hematochezia. Denied any dysuria, frequency or hematuria. Denied any chest pain, shortness of breath, orthopnea or paroxysmal nocturnal dyspnea. She did complain of cough with scant sputum. Did complain of chills, but no fever. PHYSICAL EXAMINATION: GENERAL: On arrival to the Emergency Room, she looked generally well and was clearly in no apparent respiratory distress. No pallor, jaundice, cyanosis, or thyromegaly. No jugular venous distention. No limb edema. VITAL SIGNS: Her heart rate was 115, blood pressure was 124/61, her temperature was 98.5, respiratory rate was 18 and oxygen saturation was 95% on room air. HEAD, EYES, EARS, NOSE AND THROAT: Showed normocephalic, atraumatic. NECK: Supple. HEART: Showed normal first and second heart sounds. No gallop, rub or murmur. CHEST: Clear to auscultation. No crepitation or rhonchi. ABDOMEN: Distended, soft, diffuse tenderness. No guarding or rigidity. No organomegaly. All hernial orifices intact. Bowel sounds normal. She has suprapubic catheter in place. NEUROLOGIC: She is awake, alert, responding appropriately. All cranial nerves intact. She moves extremities without difficulty. She ambulates with a walker. LABORATORY DATA: Her lab work on admission showed a white cell count of 8200, hemoglobin 12.9, hematocrit 39, MCV 98 and platelet count of 163,000 with normal manual differential. Her serum sodium was 143, potassium 3.6, chloride 109, bicarbonate 23, anion gap of 11, BUN 10, creatinine was 1. Estimated GFR was 60 mL per minute. Her glucose was 97, calcium was 8.7. Total bilirubin, AST, ALT, alkaline phosphatase were normal. Total protein was 6.1, albumin was 3.1. Urinalysis showed the urine was turbid with a pH of 7.5, specific gravity 1.015. There was large amount of protein. The urine was negative for glucose. There was small amount of ketones, small amount of blood. The urine was positive for nitrite, trace of leukocyte esterase, 20-40 wbc's and moderate amount of bacteria. ASSESSMENT AND PLAN: The patient was admitted and was started on IV fluid and started also on ciprofloxacin as well as Flagyl as she has acute colitis as well as urinary tract infection. She was also started on IV fluid in the form of D5 normal saline with potassium. We will follow her labs closely and monitor her response on a daily basis. For her levorphanol, we will consult the pharmacy to find a substitute. I will hold her nitrofurantoin for the time being as well as her Lasix given that she is dehydrated. UMESH HOLCOMB MD DR: RONALD/shayna JOB#: [id number] / [id number]
--- NOTE | 2018-10-11 16:33 | PN ---
DATE: 10/11/2018 SUBJECTIVE: The patient is resting, slightly propped up in bed, in no apparent respiratory distress. She is awake, alert, stated that she is feeling generally better, continued to have some abdominal pain, has had no more nausea and vomiting. She is tolerating her liquid diet and would like to advance her diet. PHYSICAL EXAMINATION: GENERAL: When I examined her, she looked slightly pale, but no jaundice, cyanosis, or thyromegaly. No jugular venous distension. No lower limb edema. VITAL SIGNS: Her heart rate was 75, blood pressure was 118/75, temperature was 98.5, respiratory rate was 20, and oxygen saturation was 96% on room air. HEAD, EYES, EARS, NOSE AND THROAT: Showed normocephalic, atraumatic. NECK: Supple. HEART: Showed normal first and second heart sounds. No gallop, rub or murmur. CHEST: Clear to auscultation. No crepitation or rhonchi. ABDOMEN: Distended, soft, nontender. NEUROLOGIC: She was awake, alert, responding appropriately. All her cranial nerves are intact. She moves extremities without difficulty, though she is mostly wheelchair bound. She uses also a walker. Her intake over the last 24 hours was 1600, output was 800. LABORATORY DATA: Her lab work this morning showed a white cell count of 6700, hemoglobin 12, hematocrit 36, MCV 99 and platelet count of 129,000. Her chemistry showed a serum sodium 144, potassium 3.8, chloride 112, bicarbonate 22, anion gap of 10, BUN 7, creatinine 0.9, estimated GFR was 68 mL per minute. Her glucose was 80, calcium was 8. Total bilirubin, AST, ALT, alkaline phosphatase were normal. Total protein was 5.1 and albumin was 2.4. ASSESSMENT: This is a 42-year-old with multiple medical problems, was admitted with recurrent bouts of nausea, vomiting, chills and abdominal pain. She was diagnosed with acute colitis as well as urinary tract infection. She is now on IV Flagyl and ciprofloxacin. Also dehydrated, mildly hypokalemic. She was started on IV fluid in the form of D5 half normal with 20 mEq of potassium chloride. She has multiple other medical problems including chronic pain syndrome for which she is on Levorphanol that is substituted with hydromorphone, adrenal insufficiency for which she is on Florinef, fludrocortisone as well as hydrocortisone. She has had history of pulmonary embolism, although she is not on any blood thinner. We will continue with all this current plan of management and we will repeat all her lab works tomorrow. UMESH HOLCOMB MD DR: RONALD/shayna JOB#: [id number] / [id number]
[2018-10-11] MEDS: HYDROCORTISONE 10 MG TABLET PO SCH (17:10)
[2018-10-11] MEDS: HYDROmorphone 2 MG TABLET PO PRN ×2 (17:11→23:09)
[2018-10-11] MEDS: ONDANSETRON PF 4 MG/2 ML VIAL. IV PRN (17:58)
[2018-10-11 19:01] VITALS: BP 105/71
[2018-10-11] MEDS: LACTOBACILLUS RHAMNOSUS GG 1 CAPSULE. PO SCH (20:02)
[2018-10-11] MEDS: traZODone 100 MG TABLET. PO SCH (20:02)
[2018-10-11] MEDS: POTASSIUM CHLORIDE 20 MEQ TABLET.ER. PO SCH (20:03)
[2018-10-11] MEDS: MIRTAZAPINE 30 MG TABLET PO SCH (20:04)
[2018-10-11] MEDS: MUPIROCIN 2% TOPICAL OINTMENT 22GM TUBE. TP SCH (21:00)
[2018-10-11 23:04] VITALS: BP 121/80
[2018-10-12] MEDS: POTASSIUM CL 40MEQ D5-0.45NACL 1,000 ML IV SCH ×2 (02:00→08:57)
[2018-10-12 05:16] VITALS: BP 122/79
[2018-10-12] MEDS: HYDROCORTISONE 10 MG TABLET PO SCH ×2 (05:18→16:59)
[2018-10-12] MEDS: HYDROmorphone 2 MG TABLET PO PRN ×4 (05:25→22:28)
[2018-10-12 05:33] LABS: HEMATOCRIT 36.6 % (36.0-47.0); RED BLOOD COUNT 3.73 x10^6/uL (3.50-5.40); RED CELL DISTRIBUTION WIDTH 13.1 % (11.5-14.5); WHITE BLOOD COUNT 7.6 x10^3/uL (4.0-11.0)
[2018-10-12 05:45] LABS: ALBUMIN 2.6 g/dL (3.4-5.0); ALBUMIN/GLOBULIN RATIO 0.9 (1.0-1.7); CALCIUM 8.1 mg/dL (8.5-10.1); CREATININE 0.9 mg/dL (0.6-1.0); GFR 68.3; POTASSIUM 3.9 mmol/L (3.5-5.1); TOTAL BILIRUBIN 0.3 mg/dL (0.2-1.0); TOTAL PROTEIN 5.4 g/dL (6.4-8.2)
[2018-10-12] MEDS: CIPROFLOXACIN 400MG PREMIX 200 ML IV SCH ×2 (08:43→21:01)
[2018-10-12] MEDS: BACLOFEN 20 MG TABLET PO SCH ×3 (08:46→20:57)
[2018-10-12] MEDS: DULoxetine HCL 60 MG CAPSULE.DR PO SCH (08:46)
[2018-10-12] MEDS: FAMOTIDINE 20 MG TABLET PO SCH (08:46)
[2018-10-12] MEDS: POTASSIUM CHLORIDE 20 MEQ TABLET.ER. PO SCH ×2 (08:46→20:57)
[2018-10-12] MEDS: LACTOBACILLUS RHAMNOSUS GG 1 CAPSULE. PO SCH ×2 (08:46→20:57)
[2018-10-12] MEDS: PHENAZOPYRIDINE 100 MG TABLET. PO SCH ×3 (08:46→20:58)
[2018-10-12] MEDS: ASCORBIC ACID 500 MG TABLET PO SCH ×3 (08:46→21:01)
[2018-10-12] MEDS: TOPIRAMATE 25 MG TABLET. PO SCH ×2 (08:46→20:56)
[2018-10-12] MEDS: MULTIVITAMIN I-VITE TABLET. PO SCH (08:46)
[2018-10-12] MEDS: GABAPENTIN 100 MG CAPSULE. PO SCH ×3 (08:46→20:56)
[2018-10-12] MEDS: ASPIRIN 81 MG TAB.CHEW PO SCH (08:47)
[2018-10-12] MEDS: FLUDROCORTISONE 0.1 MG TABLET PO SCH (08:47)
[2018-10-12] MEDS: SPIRONOLACTONE 25 MG TABLET PO SCH ×2 (08:47→14:38)
[2018-10-12] MEDS: PANTOPRAZOLE 40 MG TABLET. PO SCH (08:49)
[2018-10-12] MEDS: MUPIROCIN 2% TOPICAL OINTMENT 22GM TUBE. TP SCH ×2 (09:00→20:58)
[2018-10-12] MEDS ORDERED: FAMOTIDINE 20 MG TABLET ONE (09:00)
[2018-10-12 11:06] VITALS: BP 111/74
[2018-10-12] MEDS: POTASSIUM CL 20MEQ D5-0.2%NACL 1,000 ML IV SCH (14:39)
--- NOTE | 2018-10-12 14:48 | PN ---
DATE: 10/12/2018 SUBJECTIVE: The patient is resting, slightly propped up in bed, in no apparent respiratory distress. She is awake, alert. On questioning her, she stated that her pain is much better controlled. She is tolerating her full diet and nursing staff stated that she continued to ask for pain medication constantly on a regular basis. PHYSICAL EXAMINATION: GENERAL: When I examined her, she looked pale, but no jaundice, cyanosis, or thyromegaly. No jugular venous distension. No lower limb edema. VITAL SIGNS: Her heart rate was 82, blood pressure was 111/74, temperature was 98.3, respiratory rate was 18 and oxygen saturation was 94%. HEAD, EYES, EARS, NOSE AND THROAT: Normocephalic, atraumatic. NECK: Supple. HEART: Showed normal first and second heart sounds. No gallop, rub or murmur. CHEST: Clear to auscultation. No crepitation or rhonchi. ABDOMEN: Distended, soft, nontender with suprapubic catheter in place. There is no guarding or rigidity. No organomegaly. All hernial orifice intact. Bowel sounds normal. NEUROLOGIC: She is awake, alert, responding appropriately. All cranial nerves intact. She moves extremities without difficulty. Her intake over the last 24 hours was 1600, output was 800. LABORATORY DATA: As of this morning; her serum sodium was 144, potassium 3.9, chloride 112, bicarbonate 25, anion gap of 7, BUN 4, creatinine 0.9, estimated GFR was 68 mL per minute. Her glucose was 96, calcium was 8.1. Total bilirubin, AST, ALT, alkaline phosphatase were normal. Total protein was 5.4, albumin was 2.6. Her urine culture is still pending. ASSESSMENT: 1. Recurrent bouts of nausea, vomiting, chills, abdominal pain, diagnosed with acute colitis. 2. Urinary tract infection. 3. Dehydration and hypokalemia. 4. The patient has multiple other medical problems including chronic pain syndrome, adrenal insufficiency, history of pulmonary embolism. Although, she is not on any blood thinner. UMESH HOLCOMB MD DR: RONALD/shayna JOB#: [id number] / [id number]
[2018-10-12 14:55] VITALS: BP 96/64
[2018-10-12 19:24] VITALS: BP 102/66
[2018-10-12] MEDS: traZODone 100 MG TABLET. PO SCH (20:56)
[2018-10-12] MEDS: MIRTAZAPINE 30 MG TABLET PO SCH (20:59)
[2018-10-12 22:36] VITALS: BP 103/71
[2018-10-13] MEDS: HYDROCORTISONE 10 MG TABLET PO SCH (03:52)
[2018-10-13] MEDS: HYDROmorphone 2 MG TABLET PO PRN ×3 (03:52→12:31)
[2018-10-13 05:00] VITALS: BP 96/63
[2018-10-13 06:18] LABS: HEMATOCRIT 35.3 % (36.0-47.0); HEMOGLOBIN 11.7 g/dL (12.0-15.5); RED BLOOD COUNT 3.6 x10^6/uL (3.50-5.40); RED CELL DISTRIBUTION WIDTH 13.1 % (11.5-14.5); WHITE BLOOD COUNT 9.9 x10^3/uL (4.0-11.0)
[2018-10-13 06:33] LABS: ALBUMIN 2.6 g/dL (3.4-5.0); ALBUMIN/GLOBULIN RATIO 0.9 (1.0-1.7); CALCIUM 8.1 mg/dL (8.5-10.1); CREATININE 0.9 mg/dL (0.6-1.0); GFR 68.3; TOTAL BILIRUBIN 0.2 mg/dL (0.2-1.0); TOTAL PROTEIN 5.5 g/dL (6.4-8.2)
[2018-10-13] MEDS: MUPIROCIN 2% TOPICAL OINTMENT 22GM TUBE. TP SCH (08:29)
[2018-10-13] MEDS: SPIRONOLACTONE 25 MG TABLET PO SCH ×2 (08:30→14:35)
[2018-10-13] MEDS: PHENAZOPYRIDINE 100 MG TABLET. PO SCH ×2 (08:30→14:35)
[2018-10-13] MEDS: TOPIRAMATE 25 MG TABLET. PO SCH (08:30)
[2018-10-13] MEDS: LACTOBACILLUS RHAMNOSUS GG 1 CAPSULE. PO SCH (08:30)
[2018-10-13] MEDS: GABAPENTIN 100 MG CAPSULE. PO SCH ×2 (08:30→14:35)
[2018-10-13] MEDS: MULTIVITAMIN I-VITE TABLET. PO SCH (08:30)
[2018-10-13] MEDS: POTASSIUM CHLORIDE 20 MEQ TABLET.ER. PO SCH (08:30)
[2018-10-13] MEDS: ASPIRIN 81 MG TAB.CHEW PO SCH (08:30)
[2018-10-13] MEDS: ASCORBIC ACID 500 MG TABLET PO SCH ×2 (08:30→14:35)
[2018-10-13] MEDS: BACLOFEN 20 MG TABLET PO SCH ×2 (08:30→14:35)
[2018-10-13] MEDS: PANTOPRAZOLE 40 MG TABLET. PO SCH (08:31)
[2018-10-13] MEDS: DULoxetine HCL 60 MG CAPSULE.DR PO SCH (08:31)
[2018-10-13] MEDS: FAMOTIDINE 20 MG TABLET PO SCH (08:31)
[2018-10-13] MEDS: FLUDROCORTISONE 0.1 MG TABLET PO SCH (08:31)
[2018-10-13] MEDS: CIPROFLOXACIN 400MG PREMIX 200 ML IV SCH (08:32)
[2018-10-13] MEDS ORDERED: FAMOTIDINE 20 MG TABLET ONE (09:00)
[2018-10-13 10:25] VITALS: BP 108/69
[2018-10-13] MEDS: POTASSIUM CL 20MEQ D5-0.2%NACL 1,000 ML IV SCH ×2 (10:47→14:40)
[2018-10-13] MEDS: ONDANSETRON PF 4 MG/2 ML VIAL. IV PRN (12:34)
[2018-10-13] MEDS ORDERED: metroNIDAZOLE 500 MG TABLET PO SCH (14:00)
[2018-10-13] MEDS ORDERED: METR-111 PO (14:39)
[2018-10-13] MEDS ORDERED: CIPR500T94 PO (14:39)
[2018-10-13] MEDS ORDERED: CIPROFLOXACIN HCL 500 MG TABLET PO SCH (21:00)
[2018-11-08] MEDS ORDERED: CYANOCOBALAMIN (VITAMIN B-12) 1,000 MCG/ML VIAL IM SCH (09:00)
== END 2018-10-13 16:05 | disposition home health service (06) | DRG 872 ==
LOC: ER 12:22 → 1 SOUTH 14:50
PROVIDERS: ADMIT Internal Medicine; ATTEND Internal Medicine
DX: A41.9 Sepsis, unspecified organism (principal); N39.0 Urinary tract infection, site not specified; K52.9 Noninfective gastroenteritis and colitis, unspecified; I11.0 Hypertensive heart disease with heart failure; I50.9 Heart failure, unspecified; E86.0 Dehydration; E87.6 Hypokalemia; F17.210 Nicotine dependence, cigarettes, uncomplicated; G89.4 Chronic pain syndrome; J44.9 Chronic obstructive pulmonary disease, unspecified; F32.9 Major depressive disorder, single episode, unspecified; F41.9 Anxiety disorder, unspecified; Z86.711 Personal history of pulmonary embolism; Z90.710 Acquired absence of both cervix and uterus; Z90.49 Acquired absence of other specified parts of digestive tract; Z90.3 Acquired absence of stomach [part of]; Z88.2 Allergy status to sulfonamides; Z88.8 Allergy status to other drugs, medicaments and biological substances; Z91.013 Allergy to seafood; Z82.49 Family history of ischemic heart disease and other diseases of the circulatory system; Z83.3 Family history of diabetes mellitus; Z86.73 Personal history of transient ischemic attack (TIA), and cerebral infarction without residual deficits; Z87.442 Personal history of urinary calculi
CPT/HCPCS: 36415; 74177; 80053; 81001; 83605; 85025; 85027; 87086; J0696; J0744; J0780; J2270; J2405; J3010; J3490; J7042; Q9967; J7030

== ENCOUNTER 2019-01-19 18:03 | Inpatient (IN) | payer OTHER, MEDICAID ==
[~2019-01-19] VITALS: Ht 152.4 cm; Wt 85.7 kg
[~2019-01-19 18:03] MED LIST changes: +ASCO500T3 PO; +ASPI-630 PO; +BACL20TA PO; +CIPR500T94 PO; +CYAN10002 IM; +DULO60CA6 PO; +FLUD0.1T PO; +FURO40TA4 PO; +GABA-585 PO; +GUAI600T47 PO; +HYDROCORTISONE PO; +LEVO2TAB3 PO; +MELA3TAB2 PO; +METR-111 PO; +MIRT30TA3 PO; +MULT1TAB52 PO; +NITR50CA PO; +PANT40TA5 PO; +PHEN-443 PO; +RANI300C PO; +SPIR25TA5 PO; +TOPI50TA8 PO; +TRAZ-86 PO
--- NOTE | 2019-01-19 18:17 | ED.ADGEN ---
Past History Past Medical History: Asthma, CHF, DVT, UTI, Other Additional Past Medical Histor: adrenal insufficiency, spinal stenosis, pulmonary embolism Past Surgical History: Cholecystectomy, Hysterectomy, Tonsillectomy, Other Additional Past Surgical Histo: gastrectomy, ventral hernia repair Alcohol Use: None Drug Use: None Adult General Chief Complaint Chief Complaint ".. I got in middle of dog and cat fight... got sore on the this Lt leg... and ulcer on the right.. and I already had edema.. I started with cat scratch from '[employer]"... the dog Yolette was fighting with CT ( [employer]).. and got this most recent lac to the Lt leg.. I am on my second course of doxycycline...".. My legs are swollen and I am on 3 water pills... I hurt all over... cramping.. I just feel weak.. so weak..." ".. My heart been racing..." HPI HPI Patient is a 43 year old female who presents with above hx and complaints of generalized weakness, fatigue, leg edema, dyspnea, draining dog and cat scratches on her ankle, subjective fever and chills. Patient states her tetanus is less than 5 years. Patient has a medical history of [place]'s disease, pulmonary embolisms , DVT, asthma, tobacco use. Patient normally follows with Dr. Castañeda she has been on a course of doxycycline twice a day for Rt. heel ulcer and this is second course to treatment. She denies any travel. Patient denies any specific ill contacts. Review of Systems Review of Systems Constitutional: Subjective history fever or chills [] Eyes: Denies change in visual acuity, redness, or eye pain [] HENT: Denies nasal congestion or sore throat [] Respiratory: Has fatigue or shortness of breath with minimal activity Cardiovascular: No additional information not addressed in HPI [] GI: Denies abdominal pain, nausea, vomiting, bloody stools or diarrhea [] : Complains of dysuria Musculoskeletal: Complains of generalized muscle cramps. Complaints of generalized weakness Integument: Complaints weeping swollen left ankle scratch and right heel ulcer Neurologic: Denies headache, focal weakness or sensory changes [] Endocrine: Denies polyuria or polydipsia [] All other systems were reviewed and found to be within normal limits, except as documented in this note. Family History Family History Noncontributory Current Medications Current Medications Current Medications Medications (Trade) Dose Ordered Sig/Mani Start Time Stop Time Status Last Admin Dose Admin Ceftriaxone Sodium 1 gm/ Sodium Chloride 50 ml @ 100 mls/hr 1X ONCE 01/19/19 21:00 01/19/19 21:29 DC 01/19/19 21:09 100 MLS/HR Lactated Ringer's 1,000 ml @ 1,000 mls/hr Q1H 01/19/19 18:38 01/19/19 19:37 DC 01/19/19 21:07 1,000 MLS/HR Potassium Chloride (Klor-Con) 40 meq 1X ONCE 01/19/19 20:45 01/19/19 20:46 DC 01/19/19 21:10 40 MEQ Allergies Allergies Allergies Coded Allergies Type Severity Reaction Last Updated Verified Sulfa (Sulfonamide Antibiotics) Allergy Intermediate 10/11/18 Yes citric acid Allergy Intermediate 10/11/18 Yes shellfish derived Allergy Intermediate 10/11/18 Yes I S O L A T I O N *CONTACT* Allergy Unknown 10/11/18 Yes Physical Exam Physical Exam Constitutional: Moderate acute distress, non-toxic appearance. [] HENT: Normocephalic, atraumatic, bilateral external ears normal, oropharynx moist, no oral exudates, nose normal. []Multiple right eyebrow studs, right nasal stud, and lip stud Eyes: PERRLA, EOMI, conjunctiva normal, no discharge. [] Neck: Normal range of motion, no tenderness, supple, no stridor. [] Cardiovascular: Tachycardia Heart rate regular rhythm, no murmur [] Lungs & Thorax: Bilateral breath sounds equal with scattered wheezes throughout auscultation [] Abdomen: Bowel sounds normal, soft, no tenderness, no masses, no pulsatile masses. Old surgery scars. Obese. Skin: Warm, dry, no erythema, bilateral cellulitis rash. Right heel ulcer and left dog scratch Back: No tenderness, no CVA tenderness. [] Extremities: No tenderness, no cyanosis, no clubbing, ROM intact, no edema. [Complaints of muscle cramping Neurologic: Alert and oriented X 3, normal motor function, normal sensory function, no focal deficits noted. [] Psychologic: Affect anxious, judgement normal, mood normal. [] Current Patient Data Vital Signs Vital Signs Date Time Temp Pulse Resp B/P (MAP) Pulse Ox O2 Delivery O2 Flow Rate FiO2 01/19/19 18:27 98.9 114 24 94 Room Air Lab Results Laboratory Tests Test 01/19/19 19:50 01/19/19 20:05 White Blood Count 11.3 x10^3/uL (4.0-11.0) H Red Blood Count 2.91 x10^6/uL (3.50-5.40) L Hemoglobin 9.5 g/dL (12.0-15.5) L Hematocrit 29.6 % (36.0-47.0) L Mean Corpuscular Volume 102 fL (79-100) H Mean Corpuscular Hemoglobin 33 pg (25-35) Mean Corpuscular Hemoglobin Concent 32 g/dL (31-37) Red Cell Distribution Width 16.5 % (11.5-14.5) H Platelet Count 215 x10^3/uL (140-400) Neutrophils (%) (Auto) 74 % (31-73) H Lymphocytes (%) (Auto) 22 % (24-48) L Monocytes (%) (Auto) 4 % (0-9) Eosinophils (%) (Auto) 1 % (0-3) Basophils (%) (Auto) 0 % (0-3) Neutrophils # (Auto) 8.3 x10^3uL (1.8-7.7) H Lymphocytes # (Auto) 2.4 x10^3/uL (1.0-4.8) Monocytes # (Auto) 0.4 x10^3/uL (0.0-1.1) Eosinophils # (Auto) 0.1 x10^3/uL (0.0-0.7) Basophils # (Auto) 0.0 x10^3/uL (0.0-0.2) Prothrombin Time 9.6 SEC (9.4-11.4) Prothrombin Time INR 0.9 (0.9-1.1) PTT 26 SEC (23-33) D-Dimer (Ellyn) 0.48 mg/L (0.00-0.50) Sodium Level 145 mmol/L (136-145) Potassium Level 2.5 mmol/L (3.5-5.1) *L Chloride Level 100 mmol/L (98-107) Carbon Dioxide Level 37 mmol/L (21-32) H Anion Gap 8 (6-14) Blood Urea Nitrogen 34 mg/dL (7-20) H Creatinine 1.4 mg/dL (0.6-1.0) H Estimated GFR (Cockcroft-Gault) 40.8 Glucose Level 86 mg/dL (70-99) Calcium Level 8.9 mg/dL (8.5-10.1) Magnesium Level 2.4 mg/dL (1.8-2.4) Total Bilirubin 0.4 mg/dL (0.2-1.0) Direct Bilirubin 0.1 mg/dL (0.0-0.2) Aspartate Amino Transferase (AST) 18 U/L (15-37) Alanine Aminotransferase (ALT) 34 U/L (14-59) Alkaline Phosphatase 99 U/L (46-116) Creatine Kinase 46 U/L (26-192) Troponin I Quantitative < 0.017 ng/mL (0-0.055) IS-Tgn-W-Type Natriuretic Peptide 77 pg/mL (0-124) Total Protein 5.8 g/dL (6.4-8.2) L Albumin 3.3 g/dL (3.4-5.0) L Lipase 302 U/L (73-393) Urine Collection Type Suprapubic Urine Color Paulina Urine Clarity Turbid Urine pH 6.5 Urine Specific Dameron 1.015 Urine Protein Trace (NEG-TRACE) Urine Glucose (UA) Neg mg/dL (NEG) Urine Ketones (Stick) Neg mg/dL (NEG) Urine Blood Trace (NEG) Urine Nitrite Pos (NEG) Urine Bilirubin Neg (NEG) Urine Urobilinogen Dipstick 0.2 mg/dL (0.2 mg/dL) Urine Leukocyte Esterase Large (NEG) Urine RBC 3-5 /HPF (0-2) Urine WBC 20-40 /HPF (0-4) Urine Squamous Epithelial Cells Mod /LPF Urine Bacteria Many /HPF (0-FEW) Urine Opiates Screen Pos (NEG) Urine Methadone Screen Neg (NEG) Urine Barbiturates Neg (NEG) Urine Phencyclidine Screen Neg (NEG) Urine Amphetamine/Methamphetamine Neg (NEG) Urine Benzodiazepines Screen Neg (NEG) Urine Cocaine Screen Neg (NEG) Urine Cannabinoids Screen Neg (NEG) Urine Ethyl Alcohol Neg (NEG) EKG EKG My interpretation EKG shows a sinus tachycardia at 102. There are multiple P waves left atrium. Left axis deviation. Nonspecific anterior lateral changes. No findings acute STEMI of contralateral changes. Minimal T or repolarization changes. Radiology/Procedures Radiology/Procedures [][address] [address] IMAGING REPORT Signed PATIENT: ROSANGELA PENA ACCOUNT: [id number] : 1975 LOCATION: ER AGE: 43 SEX: F EXAM STATUS: REG ER ORD. PHYSICIAN: ANTONELLA DUNNE MD REASON: Leg edema, short of breath PROCEDURE: PORTABLE CHEST 1V Exam: Chest one view INDICATION: Leg edema TECHNIQUE: Frontal view of the chest Comparisons: February 04, 2018 FINDINGS: The cardiomediastinal silhouette and pulmonary vessels are within normal limits. The lung and pleural spaces are clear. Stable right anterior chest wall port with catheter tip at the atriocaval junction. IMPRESSION: No acute cardiopulmonary process. Electronically signed by: Rian Reagan MD (01/19/2019 8:25 PM) [facility] DICTATED AND SIGNED BY: RIAN REAGAN MD DATE: 01/19/192024 Impressions: [address] [address] IMAGING REPORT Signed PATIENT: ROSANGELA PENA ACCOUNT: [id number] : 1975 LOCATION: ER AGE: 43 SEX: F EXAM STATUS: REG ER ORD. PHYSICIAN: ANTONELLA DUNNE MD REASON: eval dv\\t PROCEDURE: VENOUS LOWER EXT BILATERAL Exam: Bilateral lower extremity venous duplex study INDICATION: Leg swelling TECHNIQUE: Using a combination of real-time ultrasound imaging and color-flow and pulse Doppler imaging techniques along with graded compression and augmentation, duplex evaluation of the deep venous systems of bilateral lower extremity was performed. Multiple images were obtained. Findings: There is no sonographic evidence for deep venous thrombosis involving the visualized deep venous structures of the bilateral lower extremity. IMPRESSION: No acute DVT in the bilateral lower extremities. Electronically signed by: Rian Reagan MD (01/19/2019 8:39 PM) [facility] DICTATED AND SIGNED BY: RIAN REAGAN MD DATE: 01/19/192038 CC: ANTONELLA DUNNE MD; GABRIEL CASTAÑEDA MD ~ Course & Med Decision Making Course & Med Decision Making Pertinent Labs and Imaging studies reviewed. (See chart for details) Pt . admitted to Dr. Simon for further eval. and tx. [] Final Impression Final Impression 1. Critical Hypokalemia 2.5 2. Weakness 3. Leg Edema 4. Cellulitis- Cat and Dog scratches and Heel Ulcer 5. UTI 6. Leukocytosis 11.3 7. Anemia Hgb. 9.5/Macrocytic 8. Tobacco Use[] 9. Hx of [place] Dz. with adrenal insufficiency Dragon Disclaimer Dragon Disclaimer This electronic medical record was generated, in whole or in part, using a voice recognition dictation system. Discharge Summary Visit Information Final Diagnosis Problems Medical Problems: (1) Acute hypokalemia Status: Acute Brief Hospital Course Allergies Allergies Coded Allergies Type Severity Reaction Last Updated Verified Sulfa (Sulfonamide Antibiotics) Allergy Intermediate 10/11/18 Yes citric acid Allergy Intermediate 10/11/18 Yes shellfish derived Allergy Intermediate 10/11/18 Yes I S O L A T I O N *CONTACT* Allergy Unknown 10/11/18 Yes Vital Signs Vital Signs Date Time Temp Pulse Resp B/P (MAP) Pulse Ox O2 Delivery O2 Flow Rate FiO2 01/19/19 18:27 98.9 114 24 94 Room Air Lab Results Laboratory Tests Test 01/19/19 19:50 01/19/19 20:05 White Blood Count 11.3 x10^3/uL (4.0-11.0) Red Blood Count 2.91 x10^6/uL (3.50-5.40) Hemoglobin 9.5 g/dL (12.0-15.5) Hematocrit 29.6 % (36.0-47.0) Mean Corpuscular Volume 102 fL (79-100) Mean Corpuscular Hemoglobin 33 pg (25-35) Mean Corpuscular Hemoglobin Concent 32 g/dL (31-37) Red Cell Distribution Width 16.5 % (11.5-14.5) Platelet Count 215 x10^3/uL (140-400) Neutrophils (%) (Auto) 74 % (31-73) Lymphocytes (%) (Auto) 22 % (24-48) Monocytes (%) (Auto) 4 % (0-9) Eosinophils (%) (Auto) 1 % (0-3) Basophils (%) (Auto) 0 % (0-3) Neutrophils # (Auto) 8.3 x10^3uL (1.8-7.7) Lymphocytes # (Auto) 2.4 x10^3/uL (1.0-4.8) Monocytes # (Auto) 0.4 x10^3/uL (0.0-1.1) Eosinophils # (Auto) 0.1 x10^3/uL (0.0-0.7) Basophils # (Auto) 0.0 x10^3/uL (0.0-0.2) Prothrombin Time 9.6 SEC (9.4-11.4) Prothromb Time International Ratio 0.9 (0.9-1.1) Activated Partial Thromboplast Time 26 SEC (23-33) D-Dimer (Ellyn) 0.48 mg/L (0.00-0.50) Sodium Level 145 mmol/L (136-145) Potassium Level 2.5 mmol/L (3.5-5.1) Chloride Level 100 mmol/L (98-107) Carbon Dioxide Level 37 mmol/L (21-32) Anion Gap 8 (6-14) Blood Urea Nitrogen 34 mg/dL (7-20) Creatinine 1.4 mg/dL (0.6-1.0) Estimated GFR (Cockcroft-Gault) 40.8 Glucose Level 86 mg/dL (70-99) Calcium Level 8.9 mg/dL (8.5-10.1) Magnesium Level 2.4 mg/dL (1.8-2.4) Total Bilirubin 0.4 mg/dL (0.2-1.0) Direct Bilirubin 0.1 mg/dL (0.0-0.2) Aspartate Amino Transf (AST/SGOT) 18 U/L (15-37) Alanine Aminotransferase (ALT/SGPT) 34 U/L (14-59) Alkaline Phosphatase 99 U/L (46-116) Creatine Kinase 46 U/L (26-192) Troponin I Quantitative < 0.017 ng/mL (0-0.055) IK-Xul-Z-Type Natriuretic Peptide 77 pg/mL (0-124) Total Protein 5.8 g/dL (6.4-8.2) Albumin 3.3 g/dL (3.4-5.0) Lipase 302 U/L (73-393) Urine Collection Type Suprapubic Urine Color Paulina Urine Clarity Turbid Urine pH 6.5 Urine Specific Dameron 1.015 Urine Protein Trace (NEG-TRACE) Urine Glucose (UA) Neg mg/dL (NEG) Urine Ketones (Stick) Neg mg/dL (NEG) Urine Blood Trace (NEG) Urine Nitrite Pos (NEG) Urine Bilirubin Neg (NEG) Urine Urobilinogen Dipstick 0.2 mg/dL (0.2 mg/dL) Urine Leukocyte Esterase Large (NEG) Urine RBC 3-5 /HPF (0-2) Urine WBC 20-40 /HPF (0-4) Urine Squamous Epithelial Cells Mod /LPF Urine Bacteria Many /HPF (0-FEW) Urine Opiates Screen Pos (NEG) Urine Methadone Screen Neg (NEG) Urine Barbiturates Neg (NEG) Urine Phencyclidine Screen Neg (NEG) Urine Amphetamine/Methamphetamine Neg (NEG) Urine Benzodiazepines Screen Neg (NEG) Urine Cocaine Screen Neg (NEG) Urine Cannabinoids Screen Neg (NEG) Urine Ethyl Alcohol Neg (NEG) Brief Hospital Course Ms. Pena is a 43 old [sex] who presented with [ ] Discharge Information Dischare Medications Current Medications Lactated Ringer's 1,000 ml @ 1,000 mls/hr Q1H IV Last administered on 01/19/19at 21:07; Admin Dose 1,000 MLS/HR; Start 01/19/19 at 18:38; Stop 01/19/19 at 19:37; Status DC Potassium Chloride (Klor-Con) 40 meq 1X ONCE PO Last administered on 01/19/19at 21:10; Admin Dose 40 MEQ; Start 01/19/19 at 20:45; Stop 01/19/19 at 20:46; Status DC Ceftriaxone Sodium 1 gm/ Sodium Chloride 50 ml @ 100 mls/hr 1X ONCE IV Last administered on 01/19/19at 21:09; Admin Dose 100 MLS/HR; Start 01/19/19 at 21:00; Stop 01/19/19 at 21:29; Status DC Active Scripts Active Cipro (Ciprofloxacin Hcl) 500 Mg Tablet 1 Tab PO BID 7 Days Metronidazole 250 Mg Tablet 1 Tab PO TID 7 Days Reported Nitrofurantoin (Nitrofurantoin Macrocrystal) 50 Mg Capsule 1 Cap PO DAILY Phenazopyridine Hcl 100 Mg Tablet 1 Tab PO BID Mucinex (Guaifenesin) 600 Mg Tablet.er 1 Tab PO BID Ascorbic Acid 500 Mg Tablet 500 Mg PO TID Mirtazapine 30 Mg Tablet 1 Tab PO QHS Furosemide 40 Mg Tablet 1 Tab PO TID Levorphanol Tartrate 2 Mg Tablet 2 Mg PO Q6HRS PRN Trazodone Hcl 100 Mg Tablet 1 Tab PO QHS Melatonin 3 Mg Tablet 1 Tab PO QHS Pantoprazole Sodium 40 Mg Tablet.dr 1 Tab PO DAILY06 Klor-Con M20 (Potassium Chloride) 20 Meq Tab.er.prt 1 Tab PO BID Cymbalta (Duloxetine Hcl) 60 Mg Capsule.dr 1 Cap PO DAILY Fludrocortisone Acetate 0.1 Mg Tablet 1 Tab PO BID03,15 [Hydrocortisone] 5 Mg PO BID04&16 Gabapentin (Gabapentin) 100 Mg Capsule 100 Mg PO TID Ranitidine Hcl 300 Mg Capsule 1 Cap PO DAILY Cyanocobalamin Injection (Cyanocobalamin (Vitamin B-12)) 1,000 Mcg/1 Ml Vial 1 Ml IM [id number] Aspirin 81 Mg Tab.chew 81 Mg PO DAILY Spironolactone 25 Mg Tablet 1 Tab PO BID92 Multivitamins (Multivitamin) 1 Each Tablet 1 Tab PO BID Baclofen 20 Mg Tablet 1 Tab PO TID Topiramate 50 Mg Tablet 1 Tab PO BID Discharge Summary Visit Information Final Diagnosis Problems Medical Problems: (1) Acute hypokalemia Status: Acute Brief Hospital Course Allergies Allergies Coded Allergies Type Severity Reaction Last Updated Verified Sulfa (Sulfonamide Antibiotics) Allergy Intermediate 10/11/18 Yes citric acid Allergy Intermediate 10/11/18 Yes shellfish derived Allergy Intermediate 10/11/18 Yes I S O L A T I O N *CONTACT* Allergy Unknown 10/11/18 Yes Vital Signs Vital Signs Date Time Temp Pulse Resp B/P (MAP) Pulse Ox O2 Delivery O2 Flow Rate FiO2 01/19/19 18:27 98.9 114 24 94 Room Air Lab Results Laboratory Tests Test 01/19/19 19:50 01/19/19 20:05 White Blood Count 11.3 x10^3/uL (4.0-11.0) Red Blood Count 2.91 x10^6/uL (3.50-5.40) Hemoglobin 9.5 g/dL (12.0-15.5) Hematocrit 29.6 % (36.0-47.0) Mean Corpuscular Volume 102 fL (79-100) Mean Corpuscular Hemoglobin 33 pg (25-35) Mean Corpuscular Hemoglobin Concent 32 g/dL (31-37) Red Cell Distribution Width 16.5 % (11.5-14.5) Platelet Count 215 x10^3/uL (140-400) Neutrophils (%) (Auto) 74 % (31-73) Lymphocytes (%) (Auto) 22 % (24-48) Monocytes (%) (Auto) 4 % (0-9) Eosinophils (%) (Auto) 1 % (0-3) Basophils (%) (Auto) 0 % (0-3) Neutrophils # (Auto) 8.3 x10^3uL (1.8-7.7) Lymphocytes # (Auto) 2.4 x10^3/uL (1.0-4.8) Monocytes # (Auto) 0.4 x10^3/uL (0.0-1.1) Eosinophils # (Auto) 0.1 x10^3/uL (0.0-0.7) Basophils # (Auto) 0.0 x10^3/uL (0.0-0.2) Prothrombin Time 9.6 SEC (9.4-11.4) Prothromb Time International Ratio 0.9 (0.9-1.1) Activated Partial Thromboplast Time 26 SEC (23-33) D-Dimer (Ellyn) 0.48 mg/L (0.00-0.50) Sodium Level 145 mmol/L (136-145) Potassium Level 2.5 mmol/L (3.5-5.1) Chloride Level 100 mmol/L (98-107) Carbon Dioxide Level 37 mmol/L (21-32) Anion Gap 8 (6-14) Blood Urea Nitrogen 34 mg/dL (7-20) Creatinine 1.4 mg/dL (0.6-1.0) Estimated GFR (Cockcroft-Gault) 40.8 Glucose Level 86 mg/dL (70-99) Calcium Level 8.9 mg/dL (8.5-10.1) Magnesium Level 2.4 mg/dL (1.8-2.4) Total Bilirubin 0.4 mg/dL (0.2-1.0) Direct Bilirubin 0.1 mg/dL (0.0-0.2) Aspartate Amino Transf (AST/SGOT) 18 U/L (15-37) Alanine Aminotransferase (ALT/SGPT) 34 U/L (14-59) Alkaline Phosphatase 99 U/L (46-116) Creatine Kinase 46 U/L (26-192) Troponin I Quantitative < 0.017 ng/mL (0-0.055) XR-Vop-S-Type Natriuretic Peptide 77 pg/mL (0-124) Total Protein 5.8 g/dL (6.4-8.2) Albumin 3.3 g/dL (3.4-5.0) Lipase 302 U/L (73-393) Urine Collection Type Suprapubic Urine Color Paulina Urine Clarity Turbid Urine pH 6.5 Urine Specific Dameron 1.015 Urine Protein Trace (NEG-TRACE) Urine Glucose (UA) Neg mg/dL (NEG) Urine Ketones (Stick) Neg mg/dL (NEG) Urine Blood Trace (NEG) Urine Nitrite Pos (NEG) Urine Bilirubin Neg (NEG) Urine Urobilinogen Dipstick 0.2 mg/dL (0.2 mg/dL) Urine Leukocyte Esterase Large (NEG) Urine RBC 3-5 /HPF (0-2) Urine WBC 20-40 /HPF (0-4) Urine Squamous Epithelial Cells Mod /LPF Urine Bacteria Many /HPF (0-FEW) Urine Opiates Screen Pos (NEG) Urine Methadone Screen Neg (NEG) Urine Barbiturates Neg (NEG) Urine Phencyclidine Screen Neg (NEG) Urine Amphetamine/Methamphetamine Neg (NEG) Urine Benzodiazepines Screen Neg (NEG) Urine Cocaine Screen Neg (NEG) Urine Cannabinoids Screen Neg (NEG) Urine Ethyl Alcohol Neg (NEG) Brief Hospital Course Ms. Pena is a 43 old female who presented with cellulitis, addisons dz, hypokalemia Admit Dr. Simon Discharge Information Condition at Discharge: Improved, Stable Disposition/Orders: D/C to Home w/ Hospice Dischare Medications Current Medications Lactated Ringer's 1,000 ml @ 1,000 mls/hr Q1H IV Last administered on 01/19/19at 21:07; Admin Dose 1,000 MLS/HR; Start 01/19/19 at 18:38; Stop 01/19/19 at 19:37; Status DC Potassium Chloride (Klor-Con) 40 meq 1X ONCE PO Last administered on 01/19/19at 21:10; Admin Dose 40 MEQ; Start 01/19/19 at 20:45; Stop 01/19/19 at 20:46; Status DC Ceftriaxone Sodium 1 gm/ Sodium Chloride 50 ml @ 100 mls/hr 1X ONCE IV Last administered on 01/19/19at 21:09; Admin Dose 100 MLS/HR; Start 01/19/19 at 21:00; Stop 01/19/19 at 21:29; Status DC Active Scripts Active Cipro (Ciprofloxacin Hcl) 500 Mg Tablet 1 Tab PO BID 7 Days Metronidazole 250 Mg Tablet 1 Tab PO TID 7 Days Reported Nitrofurantoin (Nitrofurantoin Macrocrystal) 50 Mg Capsule 1 Cap PO DAILY Phenazopyridine Hcl 100 Mg Tablet 1 Tab PO BID Mucinex (Guaifenesin) 600 Mg Tablet.er 1 Tab PO BID Ascorbic Acid 500 Mg Tablet 500 Mg PO TID Mirtazapine 30 Mg Tablet 1 Tab PO QHS Furosemide 40 Mg Tablet 1 Tab PO TID Levorphanol Tartrate 2 Mg Tablet 2 Mg PO Q6HRS PRN Trazodone Hcl 100 Mg Tablet 1 Tab PO QHS Melatonin 3 Mg Tablet 1 Tab PO QHS Pantoprazole Sodium 40 Mg Tablet.dr 1 Tab PO DAILY06 Klor-Con M20 (Potassium Chloride) 20 Meq Tab.er.prt 1 Tab PO BID Cymbalta (Duloxetine Hcl) 60 Mg Capsule.dr 1 Cap PO DAILY Fludrocortisone Acetate 0.1 Mg Tablet 1 Tab PO BID03,15 [Hydrocortisone] 5 Mg PO BID04&16 Gabapentin (Gabapentin) 100 Mg Capsule 100 Mg PO TID Ranitidine Hcl 300 Mg Capsule 1 Cap PO DAILY Cyanocobalamin Injection (Cyanocobalamin (Vitamin B-12)) 1,000 Mcg/1 Ml Vial 1 Ml IM [id number] Aspirin 81 Mg Tab.chew 81 Mg PO DAILY Spironolactone 25 Mg Tablet 1 Tab PO BID92 Multivitamins (Multivitamin) 1 Each Tablet 1 Tab PO BID Baclofen 20 Mg Tablet 1 Tab PO TID Topiramate 50 Mg Tablet 1 Tab PO BID Discharge Summary Visit Information Final Diagnosis Problems Medical Problems: (1) Acute hypokalemia Status: Acute Brief Hospital Course Allergies Allergies Coded Allergies Type Severity Reaction Last Updated Verified Sulfa (Sulfonamide Antibiotics) Allergy Intermediate 10/11/18 Yes citric acid Allergy Intermediate 10/11/18 Yes shellfish derived Allergy Intermediate 10/11/18 Yes I S O L A T I O N *CONTACT* Allergy Unknown 10/11/18 Yes Vital Signs Vital Signs Date Time Temp Pulse Resp B/P (MAP) Pulse Ox O2 Delivery O2 Flow Rate FiO2 01/19/19 18:27 98.9 114 24 94 Room Air Lab Results Laboratory Tests Test 01/19/19 19:50 01/19/19 20:05 White Blood Count 11.3 x10^3/uL (4.0-11.0) Red Blood Count 2.91 x10^6/uL (3.50-5.40) Hemoglobin 9.5 g/dL (12.0-15.5) Hematocrit 29.6 % (36.0-47.0) Mean Corpuscular Volume 102 fL (79-100) Mean Corpuscular Hemoglobin 33 pg (25-35) Mean Corpuscular Hemoglobin Concent 32 g/dL (31-37) Red Cell Distribution Width 16.5 % (11.5-14.5) Platelet Count 215 x10^3/uL (140-400) Neutrophils (%) (Auto) 74 % (31-73) Lymphocytes (%) (Auto) 22 % (24-48) Monocytes (%) (Auto) 4 % (0-9) Eosinophils (%) (Auto) 1 % (0-3) Basophils (%) (Auto) 0 % (0-3) Neutrophils # (Auto) 8.3 x10^3uL (1.8-7.7) Lymphocytes # (Auto) 2.4 x10^3/uL (1.0-4.8) Monocytes # (Auto) 0.4 x10^3/uL (0.0-1.1) Eosinophils # (Auto) 0.1 x10^3/uL (0.0-0.7) Basophils # (Auto) 0.0 x10^3/uL (0.0-0.2) Prothrombin Time 9.6 SEC (9.4-11.4) Prothromb Time International Ratio 0.9 (0.9-1.1) Activated Partial Thromboplast Time 26 SEC (23-33) D-Dimer (Ellyn) 0.48 mg/L (0.00-0.50) Sodium Level 145 mmol/L (136-145) Potassium Level 2.5 mmol/L (3.5-5.1) Chloride Level 100 mmol/L (98-107) Carbon Dioxide Level 37 mmol/L (21-32) Anion Gap 8 (6-14) Blood Urea Nitrogen 34 mg/dL (7-20) Creatinine 1.4 mg/dL (0.6-1.0) Estimated GFR (Cockcroft-Gault) 40.8 Glucose Level 86 mg/dL (70-99) Calcium Level 8.9 mg/dL (8.5-10.1) Magnesium Level 2.4 mg/dL (1.8-2.4) Total Bilirubin 0.4 mg/dL (0.2-1.0) Direct Bilirubin 0.1 mg/dL (0.0-0.2) Aspartate Amino Transf (AST/SGOT) 18 U/L (15-37) Alanine Aminotransferase (ALT/SGPT) 34 U/L (14-59) Alkaline Phosphatase 99 U/L (46-116) Creatine Kinase 46 U/L (26-192) Troponin I Quantitative < 0.017 ng/mL (0-0.055) PE-Wwk-I-Type Natriuretic Peptide 77 pg/mL (0-124) Total Protein 5.8 g/dL (6.4-8.2) Albumin 3.3 g/dL (3.4-5.0) Lipase 302 U/L (73-393) Urine Collection Type Suprapubic Urine Color Paulina Urine Clarity Turbid Urine pH 6.5 Urine Specific Dameron 1.015 Urine Protein Trace (NEG-TRACE) Urine Glucose (UA) Neg mg/dL (NEG) Urine Ketones (Stick) Neg mg/dL (NEG) Urine Blood Trace (NEG) Urine Nitrite Pos (NEG) Urine Bilirubin Neg (NEG) Urine Urobilinogen Dipstick 0.2 mg/dL (0.2 mg/dL) Urine Leukocyte Esterase Large (NEG) Urine RBC 3-5 /HPF (0-2) Urine WBC 20-40 /HPF (0-4) Urine Squamous Epithelial Cells Mod /LPF Urine Bacteria Many /HPF (0-FEW) Urine Opiates Screen Pos (NEG) Urine Methadone Screen Neg (NEG) Urine Barbiturates Neg (NEG) Urine Phencyclidine Screen Neg (NEG) Urine Amphetamine/Methamphetamine Neg (NEG) Urine Benzodiazepines Screen Neg (NEG) Urine Cocaine Screen Neg (NEG) Urine Cannabinoids Screen Neg (NEG) Urine Ethyl Alcohol Neg (NEG) Brief Hospital Course Ms. Pena is a 43 old female who presented with hypokalemia. Admitted Dr. Simon Discharge Information Condition at Discharge: Improved, Stable Dischare Medications Current Medications Lactated Ringer's 1,000 ml @ 1,000 mls/hr Q1H IV Last administered on 01/19/19at 21:07; Admin Dose 1,000 MLS/HR; Start 01/19/19 at 18:38; Stop 01/19/19 at 19:37; Status DC Potassium Chloride (Klor-Con) 40 meq 1X ONCE PO Last administered on 01/19/19at 21:10; Admin Dose 40 MEQ; Start 01/19/19 at 20:45; Stop 01/19/19 at 20:46; Status DC Ceftriaxone Sodium 1 gm/ Sodium Chloride 50 ml @ 100 mls/hr 1X ONCE IV Last administered on 01/19/19at 21:09; Admin Dose 100 MLS/HR; Start 01/19/19 at 21:00; Stop 01/19/19 at 21:29; Status DC Active Scripts Active Cipro (Ciprofloxacin Hcl) 500 Mg Tablet 1 Tab PO BID 7 Days Metronidazole 250 Mg Tablet 1 Tab PO TID 7 Days Reported Nitrofurantoin (Nitrofurantoin Macrocrystal) 50 Mg Capsule 1 Cap PO DAILY Phenazopyridine Hcl 100 Mg Tablet 1 Tab PO BID Mucinex (Guaifenesin) 600 Mg Tablet.er 1 Tab PO BID Ascorbic Acid 500 Mg Tablet 500 Mg PO TID Mirtazapine 30 Mg Tablet 1 Tab PO QHS Furosemide 40 Mg Tablet 1 Tab PO TID Levorphanol Tartrate 2 Mg Tablet 2 Mg PO Q6HRS PRN Trazodone Hcl 100 Mg Tablet 1 Tab PO QHS Melatonin 3 Mg Tablet 1 Tab PO QHS Pantoprazole Sodium 40 Mg Tablet.dr 1 Tab PO DAILY06 Klor-Con M20 (Potassium Chloride) 20 Meq Tab.er.prt 1 Tab PO BID Cymbalta (Duloxetine Hcl) 60 Mg Capsule.dr 1 Cap PO DAILY Fludrocortisone Acetate 0.1 Mg Tablet 1 Tab PO BID03,15 [Hydrocortisone] 5 Mg PO BID04&16 Gabapentin (Gabapentin) 100 Mg Capsule 100 Mg PO TID Ranitidine Hcl 300 Mg Capsule 1 Cap PO DAILY Cyanocobalamin Injection (Cyanocobalamin (Vitamin B-12)) 1,000 Mcg/1 Ml Vial 1 Ml IM [id number] Aspirin 81 Mg Tab.chew 81 Mg PO DAILY Spironolactone 25 Mg Tablet 1 Tab PO BID92 Multivitamins (Multivitamin) 1 Each Tablet 1 Tab PO BID Baclofen 20 Mg Tablet 1 Tab PO TID Topiramate 50 Mg Tablet 1 Tab PO BID Dragon Disclaimer This chart was dictated in whole or in part using Voice Recognition software in a busy, high-work load, and often noisy Emergency Department environment. It may contain unintended and wholly unrecognized errors or omissions. Dragon Disclaimer This chart was dictated in whole or in part using Voice Recognition software in a busy, high-work load, and often noisy Emergency Department environment. It may contain unintended and wholly unrecognized errors or omissions. Dragon Disclaimer This chart was dictated in whole or in part using Voice Recognition software in a busy, high-work load, and often noisy Emergency Department environment. It may contain unintended and wholly unrecognized errors or omissions. ANTONELLA DUNNE MD Jan 19, 2019 18:17
[2019-01-19] MEDS ORDERED: IV RINGERS SOLUTION,LACTATED 1,000 ML IV SCH (18:38)
[2019-01-19 20:10] LABS: BASO % 0 % (0-3); EOS # 0.1 x10^3/uL (0.0-0.7); EOS % 1 % (0-3); HEMATOCRIT 29.6 % (36.0-47.0); HEMOGLOBIN 9.5 g/dL (12.0-15.5); LYMPH # 2.4 x10^3/uL (1.0-4.8); LYMPH % 22 % (24-48); MEAN CORPUSCULAR HEMOGLOBIN 33 pg (25-35); MEAN CORPUSCULAR HGB CONC 32 g/dL (31-37); MEAN CORPUSCULAR VOLUME 102 fL (79-100); MONO # 0.4 x10^3/uL (0.0-1.1); MONO % 4 % (0-9); NEUT # 8.3 x10^3uL (1.8-7.7); NEUT % 74 % (31-73); PLATELET COUNT 215 x10^3/uL (140-400); RED BLOOD COUNT 2.91 x10^6/uL (3.50-5.40); RED CELL DISTRIBUTION WIDTH 16.5 % (11.5-14.5); WHITE BLOOD COUNT 11.3 x10^3/uL (4.0-11.0)
--- NOTE | 2019-01-19 20:28 | RAD ---
Exam: Chest one view INDICATION: Leg edema TECHNIQUE: Frontal view of the chest Comparisons: February 04, 2018 FINDINGS: The cardiomediastinal silhouette and pulmonary vessels are within normal limits. The lung and pleural spaces are clear. Stable right anterior chest wall port with catheter tip at the atriocaval junction. IMPRESSION: No acute cardiopulmonary process. Electronically signed by: Rian Bermeo MD (01/19/2019 8:25 PM) [facility]
[2019-01-19 20:34] LABS: ALBUMIN 3.3 g/dL (3.4-5.0); CALCIUM 8.9 mg/dL (8.5-10.1); CREATININE 1.4 mg/dL (0.6-1.0); DIRECT BILIRUBIN 0.1 mg/dL (0.0-0.2); GFR 40.8; MAGNESIUM 2.4 mg/dL (1.8-2.4); TOTAL BILIRUBIN 0.4 mg/dL (0.2-1.0); TOTAL PROTEIN 5.8 g/dL (6.4-8.2)
[2019-01-19 20:34] LABS: BARBITURATES NEG (NEG); BENZODIAZEPINES NEG (NEG); CANNABINOIDS NEG (NEG); COCAINE NEG (NEG); METHADONE NEG (NEG); OPIATES POS (NEG); PHENCYCLIDINE NEG (NEG)
[2019-01-19 20:35] LABS: POTASSIUM 2.5 mmol/L (3.5-5.1)
[2019-01-19 20:35] LABS: AMPHETAMINE/METHAMPHETAMINE NEG (NEG)
[2019-01-19 20:40] LABS: BACTERIA,URINE MANY /HPF (0-FEW); BILIRUBIN,URINE NEG (NEG); CLARITY,URINE TURBID; COLOR,URINE AMBER; GLUCOSE,URINE NEG (NEG); NITRITE,URINE POS (NEG); SQUAMOUS EPITHELIAL CELL,UR MOD /LPF; UROBILINOGEN,URINE 0.2 mg/dL (0.2 mg/dL); WBC,URINE 20-40 /HPF (0-4)
--- NOTE | 2019-01-19 20:42 | RAD ---
Exam: Bilateral lower extremity venous duplex study INDICATION: Leg swelling TECHNIQUE: Using a combination of real-time ultrasound imaging and color-flow and pulse Doppler imaging techniques along with graded compression and augmentation, duplex evaluation of the deep venous systems of bilateral lower extremity was performed. Multiple images were obtained. Findings: There is no sonographic evidence for deep venous thrombosis involving the visualized deep venous structures of the bilateral lower extremity. IMPRESSION: No acute DVT in the bilateral lower extremities. Electronically signed by: Rian Bermeo MD (01/19/2019 8:39 PM) [facility]
[2019-01-19] MEDS ORDERED: POTASSIUM CHLORIDE 20 MEQ TABLET.ER. PO ONE (20:45)
[2019-01-19] MEDS ORDERED: IV NORMAL SALINE 50ML 50 ML ONE (21:01)
[2019-01-19] MEDS ORDERED: cefTRIAXone SODIUM 1 GM VIAL ONE (21:02)
[2019-01-19] MEDS ORDERED: oxyCODONE/APAP 5/325 1 TAB TABLET PO ONE (21:15)
[2019-01-19] MEDS ORDERED: ACETAMINOPHEN 325 MG TABLET PO PRN (21:30)
[2019-01-19] MEDS ORDERED: ONDANSETRON PF 4 MG/2 ML VIAL. IV PRN (21:30)
[2019-01-19] MEDS ORDERED: methylPREDNISolone SOD SUCC PF 125 MG/2 ML VIAL. IV ONE (22:30)
[2019-01-19 23:54] VITALS: BP 120/80
[2019-01-20] MEDS: POTASSIUM CHLORIDE 20MEQ 100 ML IV SCH ×2 (00:37→02:31)
[2019-01-20] MEDS: MORPHINE SULFATE 10 MG/ML SYRINGE. SQ PRN ×2 (00:38→21:18)
[2019-01-20] MEDS ORDERED: HYDR5TAB3 PO (01:38)
[2019-01-20] MEDS ORDERED: CRAN1CAP12 PO (01:38)
[2019-01-20] MEDS ORDERED: POTA20TA4 PO ×2 (01:38)
[2019-01-20] MEDS ORDERED: ACET-704 PO ×2 (01:38)
[2019-01-20] MEDS ORDERED: ASPI325T8 PO (01:38)
[2019-01-20] MEDS ORDERED: MELA3TAB2 PO (01:38)
[2019-01-20] MEDS ORDERED: METO5TAB4 PO (02:22)
[2019-01-20] MEDS ORDERED: CEFU500T46 PO (02:22)
--- NOTE | 2019-01-20 04:50 | NUR ---
The patient, ROSANGELA FLORENCE, 43 y/o, F admitted by UMESH HOLCOMB MD, was given written information regarding hospital policies, unit procedures and contact persons. Pt assisted onto the unit via gurney, pt transferred from gurney to bed with minimal assistance. VSS. Pt reports that she got scratched by her kitten today and her leg has been leaking fluid ever since. Pt has BLE 3+ pitting edema. Legs elevated on a pillow. Pt oriented to room and plan of care, agreeable at this time. Valuables were checked and left in room with pt. Call light within reach.
[2019-01-20] MEDS: IPRATRPIUM/ALBUTEROL 0.5/2.5MG 3 ML NEBU. NEB SCH ×4 (05:00→19:45)
[2019-01-20 05:58] VITALS: BP 100/65
[2019-01-20 06:21] LABS: BASO % 0 % (0-3); EOS % 0 % (0-3); HEMATOCRIT 30.6 % (36.0-47.0); HEMOGLOBIN 9.7 g/dL (12.0-15.5); LYMPH # 0.4 x10^3/uL (1.0-4.8); LYMPH % 4 % (24-48); MEAN CORPUSCULAR HEMOGLOBIN 33 pg (25-35); MEAN CORPUSCULAR HGB CONC 32 g/dL (31-37); MEAN CORPUSCULAR VOLUME 104 fL (79-100); MONO # 0.1 x10^3/uL (0.0-1.1); MONO % 1 % (0-9); NEUT # 9.1 x10^3uL (1.8-7.7); NEUT % 94 % (31-73); PLATELET COUNT 242 x10^3/uL (140-400); RED BLOOD COUNT 2.95 x10^6/uL (3.50-5.40); RED CELL DISTRIBUTION WIDTH 16.8 % (11.5-14.5); WHITE BLOOD COUNT 9.7 x10^3/uL (4.0-11.0)
[2019-01-20 06:28] LABS: CALCIUM 8.5 mg/dL (8.5-10.1); CREATININE 1.2 mg/dL (0.6-1.0); GFR 48.8
[2019-01-20 06:31] LABS: POTASSIUM 2.8 mmol/L (3.5-5.1)
[2019-01-20] MEDS ORDERED: POTASSIUM CHLORIDE 20 MEQ TABLET.ER. PO ONE ×3 (07:00→09:00)
--- NOTE | 2019-01-20 10:16 | EKG ---
[address] [id number] Test Date: 2019-01-19 Test Time: 19:07:36 Pat Name: ROSANGELA FLORENCE Department: Room: Gender: F Die Filer: PALMER : 1975 Requested By: ANTONELLA DUNNE Order Number: [id number] Reading MD: Measurements Intervals [place] Rate: 102 P: -6 NC: 108 QRS: -12 QRSD: 88 T: 56 QT: 392 QTc: 516 Interpretive Statements SINUS TACHYCARDIA LEFT ATRIAL ABNORMALITY LEFTWARD AXIS QRS(T) CONTOUR ABNORMALITY CONSIDER ANTEROLATERAL MYOCARDIAL DAMAGE ABNORMAL ECG RI6.01 Compared to ECG 02/04/2018 09:11:36 Atrial abnormality now present Left-axis deviation now present Sinus rhythm no longer present
[2019-01-20 11:09] LABS: CALCIUM 8.5 mg/dL (8.5-10.1); CREATININE 1.2 mg/dL (0.6-1.0); GFR 48.8; POTASSIUM 3.7 mmol/L (3.5-5.1)
[2019-01-20 11:30] VITALS: BP 100/64
[2019-01-20 15:00] VITALS: BP 93/50
[2019-01-20] MEDS ORDERED: ACETAMINOPHEN WITH CODEINE PO PRN (15:45)
[2019-01-20] MEDS ORDERED: MELATONIN 3 MG TABLET PO PRN (16:30)
[2019-01-20] MEDS: FAMOTIDINE 20 MG TABLET PO SCH (18:03)
--- NOTE | 2019-01-20 18:40 | HP ---
ADMIT DATE: 01/19/2019 HISTORY OF PRESENT ILLNESS: The patient is a 43-year-old female patient who came to the Emergency Room with complaints of having scratches on her legs when she got in the middle of a dog and cat fight. She got sores on her left leg and ulcers on the right. She already has edema and she got laceration on her left leg. She had this before and she is actually on second course of doxycycline and her legs are swollen despite being on free water pills. Also, she is complaining of hurting all over, cramping, weak and her heart was beating fast. Apparently, she has been complaining of generalized weakness, fatigue, leg edema, dyspnea, draining, dog and cat scratches on her ankle. She has also had a low-grade fever, according to her it goes up to sometimes 101. She has had a tetanus shot less than 5 years ago and she normally follows with Dr. Castañeda, has been on a course of doxycycline twice a day for right heel ulcer and she is getting the second course now. She was evaluated in the Emergency Room and was found to have severe hypokalemia with potassium 2.5, generalized weakness, bilateral lower extremity edema and has cellulitis of her cat and dog scratches and heel ulcer and has a UTI and microcytic anemia. She carries a diagnosis of [place]'s disease, for which she is on hydrocortisone. PAST MEDICAL HISTORY: Significant for bronchial asthma, COPD. She also had mild stroke with left-sided weakness, hypertension, methicillin-resistant Staphylococcus aureus infection, adrenal insufficiency, gastroparesis, lumbar spinal stenosis. She does have a history of C. diff colitis, pulmonary embolism, hemorrhoids, hiatal hernia, body image disorder, kidney stones, foot drop, anxiety, depression and tobacco use. PAST SURGICAL HISTORY: Significant for tonsillectomy, adenoidectomy, cholecystectomy, gastrectomy with multiple abdominal surgeries with history of J-tube placement, ventral hernia repair, cyst excision and hysterectomy. ALLERGIES: She is allergic to SULFA, CITRIC ACID and SHELLFISH. FAMILY HISTORY: She has 2 brothers, both older and alive. Her older brother has diabetes, hypertension. The younger brother has hypertension. His diabetes was ameliorated after he underwent bypass surgery. Her father is still alive at the age of 73. He is known to have myocardial infarction and underwent 5-vessel coronary artery bypass graft surgery. Mother is still alive at the age of 72 and has had myocardial infarction, for which she underwent PCI with stent deployment. SOCIAL HISTORY: She is , has 1 son. She smokes half a pack a day. She does not drink alcohol or any recreational drugs. 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 MEDICATIONS: She is currently on following medications: Cefuroxime axetil 500 mg twice a day, nitrofurantoin macrocrystal 50 mg daily, baclofen 20 mg 2 times a day, spironolactone 25 mg twice a day, aspirin 325 mg twice a day, acetaminophen with codeine 2 tablets every 6 hours. She is on gabapentin 100 mg 3 times a day, topiramate 50 mg twice a day, duloxetine 60 mg twice a day, mirtazapine 30 mg at bedtime, trazodone 100 mg at bedtime, potassium chloride 40 mEq once a day, potassium chloride 60 mEq at bedtime. She is on furosemide 40 mg 3 times a day, metolazone 5 mg daily, guaifenesin 600 mg twice a day, ranitidine 300 mg in the evening. She is on Protonix 40 mg daily. Fludrocortisone, she takes 3 tablets twice a day, 300 mcg 3 times a day. Hydrocortisone 20 mg twice a day, cyanocobalamin for vitamin B12 injection 1000 mcg/mL intramuscular every 2 weeks, vitamin C 500 mg 3 times a day, multivitamin 1 tablet once a day, cranberry extract, vitamin C 1 tablet 3 times a day, melatonin 5-10 mg at bedtime. REVIEW OF SYSTEMS: The patient denied any blurring of vision, cataract, glaucoma or macular degeneration. Denied any earache, tinnitus or sensorineural deafness. Denied any nosebleeds, stuffy nose or postnasal drip. Denied any sore throat, sore tongue, toothache, hoarseness of voice or difficulty swallowing. Denied any nausea, vomiting, diarrhea or constipation. She has a suprapubic catheter in place. Denied any chest pain, shortness of breath, orthopnea or paroxysmal nocturnal dyspnea. Denied any cough, phlegm or hemoptysis. PHYSICAL EXAMINATION: GENERAL: On arrival to the Emergency Room, she looked well and was clearly in no apparent respiratory distress. No pallor, jaundice, cyanosis, or thyromegaly. No jugular venous distension. She has bilateral lower limb edema. VITAL SIGNS: Her heart rate was 87, blood pressure was 102/66, temperature was 99.2, respiratory rate was 18 and oxygen saturation was 94%. HEAD, EYES, EARS, NOSE AND THROAT: Showed normocephalic, atraumatic. NECK: Supple. HEART: Showed normal first and second heart sounds. No gallop, rub or murmur. CHEST: Clear to auscultation. No crepitation or rhonchi. ABDOMEN: Distended, soft, nontender. No guarding or rigidity. No organomegaly. All hernial orifices intact. Bowel sounds normal. NEUROLOGIC: She is awake, alert, responding appropriately. All cranial nerves intact. EXTREMITIES: She moves extremities without difficulty. She has bilateral lower extremity edema. She has scratch chan on the inner aspect of the left leg. SKIN: Very tender and warm to touch. The sites of scratch are oozing some clear serous fluid. LABORATORY DATA: On admission showed a white cell count of 11,000, hemoglobin 9.5, hematocrit 29.6, MCV 102 and platelet count of 215,000 with normal manual differential. Her prothrombin time was 9.6, INR was 0.9. Her aPTT was 26 and D-dimer was 0.48. Her serum sodium was 145, potassium 2.5, chloride 100, bicarbonate 37, anion gap of 8, BUN 34, creatinine 1.4, estimated GFR was 40 mL per minute. Her glucose was 86, calcium was 8.9, magnesium was 2.4. Total bilirubin, AST, ALT, alkaline phosphatase were normal. Her total protein was 5.8, albumin was 3.3. Her urinalysis showed the urine was chandra, turbid with pH of 6.5, specific gravity ____ and there was trace of protein, negative for glucose, ketones, trace of blood, positive for nitrite, negative for bilirubin, large amount of leukocyte esterase, 3-5 rbc's, 20-40 wbc's and many bacteria. Her toxic screen was positive for opiates; however, it was negative for methadone, barbiturates, phencyclidine, amphetamine, methamphetamine, benzodiazepine, cannabinoids, cocaine and alcohol. Her chest x-ray showed the cardiomediastinal silhouette and pulmonary vessels are within normal limits. The lungs and pleural spaces are clear, stable right anterior chest wall port with catheter tip at the atriocaval junction. She did have bilateral lower extremity venous Doppler ultrasound, which showed no sonographic evidence for deep vein thrombosis involving the visualized deep venous structures of the bilateral lower extremity. IMPRESSION AND PLAN: The patient was admitted with a multitude of medical problems including severe hypokalemia, generalized weakness, bilateral lower extremity edema, cellulitis, urinary tract infection, anemia, continued tobacco use and [place]'s disease. PLAN: Obviously, we will replenish her potassium with oral route. We will resume all her medication. We will contact the [facility] to ascertain what kind of medications she is taking and we will monitor her lab work and decide the further management accordingly. UMESH HOLCOMB MD DR: RONALD/shayna JOB#: [id number] / [id number]
[2019-01-20 19:04] VITALS: BP 100/62
[2019-01-20] MEDS ORDERED: FUROSEMIDE 40 MG TABLET PO SCH (21:00)
[2019-01-20] MEDS ORDERED: NON FORMULARY ITEM (Cranberry Extract/Vit C (Azo Cranberry Softgel) 1 EACH) PO SCH (21:00)
[2019-01-20] MEDS: ASPIRIN 325 MG TABLET PO SCH (21:01)
[2019-01-20] MEDS: HYDROCORTISONE 10 MG TABLET PO SCH (21:02)
[2019-01-20] MEDS: traZODone 100 MG TABLET. PO SCH (21:02)
[2019-01-20] MEDS: DULoxetine HCL 60 MG CAPSULE.DR PO SCH (21:02)
[2019-01-20] MEDS: TOPIRAMATE 25 MG TABLET. PO SCH (21:03)
[2019-01-20] MEDS: GABAPENTIN 100 MG CAPSULE. PO SCH (21:10)
[2019-01-20] MEDS: MULTIVITAMIN with MINERAL TABLET. PO SCH (21:10)
[2019-01-20] MEDS: BACLOFEN 20 MG TABLET PO SCH (21:10)
[2019-01-20] MEDS: POTASSIUM CHLORIDE 20 MEQ TABLET.ER. PO SCH (21:10)
[2019-01-20] MEDS: ASCORBIC ACID 500 MG TABLET PO SCH (21:10)
[2019-01-20] MEDS: MIRTAZAPINE 30 MG TABLET PO SCH (21:10)
[2019-01-20] MEDS: FLUDROCORTISONE 0.1 MG TABLET PO SCH (21:11)
[2019-01-21] MEDS: MORPHINE SULFATE 10 MG/ML SYRINGE. SQ PRN ×2 (01:07→05:49)
--- NOTE | 2019-01-21 02:06 | PN ---
DATE: 01/20/2019 SUBJECTIVE: The patient is resting, slightly propped up in bed, in no apparent distress. She continued to complain of pain and oozing from the cat scratch chan on her left leg, has also subjective fever. PHYSICAL EXAMINATION: GENERAL: When I examined her, she looked well and was clearly in no apparent respiratory distress, pale. No jaundice, cyanosis or thyromegaly. No jugular venous distention, but bilateral lower limb edema. VITAL SIGNS: Her heart rate was 84, blood pressure was 100/64, temperature was 98, respiratory rate 20, and oxygen saturation was 95% on 4 liters of oxygen. HEAD, EYES, EARS, NOSE AND THROAT: Showed normocephalic, atraumatic. NECK: Supple. HEART: Showed normal first and second heart sounds. No gallop, rub or murmur. CHEST: Clear to auscultation. No crepitation or rhonchi. ABDOMEN: Distended, soft, nontender. NEUROLOGIC: She is awake, alert, responding appropriately. Cranial nerves intact. She moves extremities without difficulty. She ambulates with a walker. Her intake over the last 24 hours was 1350, output was 2100. LABORATORY DATA: Her lab work this morning showed white cell count 9700, hemoglobin 9.7, hematocrit 30.6, MCV 104, platelet count 142,000. Her chemistry showed serum sodium 142, potassium of 3.7, chloride 102, bicarbonate 32, anion gap of 8, BUN 28, creatinine 1.2, estimated GFR was 49 mL per minute. Her glucose 191 and calcium was 8.5. Her TSH was normal at 2.4-8. ASSESSMENT: 1. Bilateral lower extremity cellulitis. 2. Cat scratches that are oozing some serous fluid. 3. Hypokalemia, improved. Her serum potassium has risen from 2.5-3.7. 4. Acute kidney injury is also improving. Her BUN and creatinine came down from 34 and 1.4 to 28 and 1.2. The patient has microcytic hypochromic anemia. 5. Other medical problems include neurogenic bladder requiring suprapubic catheter. She has also urinary tract infection for which she is now on IV Rocephin. 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 PLAN: To resume all her medication. Continue with IV antibiotic for now. Await the result of the urine culture and sensitivity. Would consult physical and occupational therapy. UMESH HOLCOMB MD DR: RONALD/shayna JOB#: [id number] / [id number]
[2019-01-21] MEDS: IPRATRPIUM/ALBUTEROL 0.5/2.5MG 3 ML NEBU. NEB SCH ×4 (05:23→20:47)
[2019-01-21 06:54] VITALS: BP 90/49
[2019-01-21 08:09] LABS: HEMATOCRIT 27.1 % (36.0-47.0); HEMOGLOBIN 8.5 g/dL (12.0-15.5); RED BLOOD COUNT 2.59 x10^6/uL (3.50-5.40); RED CELL DISTRIBUTION WIDTH 17.1 % (11.5-14.5); WHITE BLOOD COUNT 12.1 x10^3/uL (4.0-11.0)
[2019-01-21 08:30] LABS: ALBUMIN 2.7 g/dL (3.4-5.0); C REACTIVE PROTEIN 19.8 mg/L (0-3.3); CALCIUM 8.1 mg/dL (8.5-10.1); CREATININE 0.9 mg/dL (0.6-1.0); MAGNESIUM 2.4 mg/dL (1.8-2.4); POTASSIUM 3.6 mmol/L (3.5-5.1); TOTAL BILIRUBIN 0.3 mg/dL (0.2-1.0); TOTAL PROTEIN 5.5 g/dL (6.4-8.2)
[2019-01-21] MEDS: ASPIRIN 325 MG TABLET PO SCH ×2 (09:14→20:54)
[2019-01-21] MEDS: TOPIRAMATE 25 MG TABLET. PO SCH ×2 (09:14→20:53)
[2019-01-21] MEDS: GABAPENTIN 100 MG CAPSULE. PO SCH ×3 (09:14→20:53)
[2019-01-21] MEDS: SPIRONOLACTONE 25 MG TABLET PO SCH ×2 (09:14→15:01)
[2019-01-21] MEDS: BACLOFEN 20 MG TABLET PO SCH ×3 (09:14→20:53)
[2019-01-21] MEDS: POTASSIUM CHLORIDE 20 MEQ TABLET.ER. PO SCH ×2 (09:14→20:53)
[2019-01-21] MEDS: DULoxetine HCL 60 MG CAPSULE.DR PO SCH ×2 (09:15→20:53)
[2019-01-21] MEDS: NITROFURANTOIN MONOHYD/M-CRYST 100 MG CAPSULE. PO SCH (09:15)
[2019-01-21] MEDS: metOLazone 5 MG TABLET PO SCH (09:15)
[2019-01-21] MEDS: PANTOPRAZOLE 40 MG TABLET. PO SCH (09:15)
[2019-01-21] MEDS: ASCORBIC ACID 500 MG TABLET PO SCH ×3 (09:15→20:53)
[2019-01-21] MEDS: MULTIVITAMIN with MINERAL TABLET. PO SCH ×2 (09:15→20:53)
[2019-01-21] MEDS: FLUDROCORTISONE 0.1 MG TABLET PO SCH ×2 (09:16→20:55)
[2019-01-21] MEDS: HYDROCORTISONE 10 MG TABLET PO SCH ×2 (09:17→20:54)
[2019-01-21 10:47] VITALS: BP 97/57
[2019-01-21] MEDS: BISACODYL TAB 5 MG TABLET.DR. PO SCH ×2 (10:50→20:54)
[2019-01-21] MEDS: MORPHINE SULFATE 4 MG/ML DISP.SYRIN. IV PRN ×3 (10:50→20:04)
[2019-01-21 15:11] VITALS: BP 97/63
[2019-01-21] MEDS: HYDROcodone/APAP 5/325MG 1 TAB TABLET PO PRN ×2 (17:01→23:53)
[2019-01-21] MEDS: FAMOTIDINE 20 MG TABLET PO SCH (17:11)
[2019-01-21 19:38] VITALS: BP 116/73
[2019-01-21] MEDS: traZODone 100 MG TABLET. PO SCH (20:53)
[2019-01-21] MEDS: MIRTAZAPINE 30 MG TABLET PO SCH (20:53)
[2019-01-21 22:58] VITALS: BP 108/69
--- NOTE | 2019-01-22 01:04 | PN ---
DATE: 01/21/2019 SUBJECTIVE: The patient is resting, slightly propped up in bed, no apparent distress. She continued to complain of pain, is not well controlled with IV hydromorphone. She stated that her feet are much better now. She was evaluated by the physical therapist and she is able to ambulate with a walker with standby assist. PHYSICAL EXAMINATION: GENERAL: When I examined her, she looked pale, but no jaundice, cyanosis or thyromegaly. No jugular venous distension. No limb edema. VITAL SIGNS: Her heart rate was 91, blood pressure was 97/63, temperature was 98.1, respiratory rate was 18 and oxygen saturation was 97% on 4 liters of oxygen. HEAD, EYES, EARS, NOSE AND THROAT: Showed she is normocephalic, atraumatic. NECK: Supple. HEART: Showed normal first and second heart sounds with no gallop, rub or murmur. CHEST: Clear to auscultation. No crepitation or rhonchi. ABDOMEN: Distended, soft, nontender. NEUROLOGIC: She is awake, alert, responding appropriately. All cranial nerves intact. She moves extremities without difficulty. She actually is able to ambulate with a walker. Her intake over the last 24 hours was 1500, output was 2100. LABORATORY DATA: As of this morning, her white cell count was 12,000, hemoglobin 8.5, hematocrit 27, MCV 105 and platelet count of 114,000. Her chemistry showed that her serum sodium was 144, potassium 3.6, chloride 107, bicarbonate 32, anion gap of 5, BUN 16, creatinine 0.9, estimated GFR was 68 mL per minute. Her glucose was 99, calcium was 8.1, magnesium was 2.4. Total bilirubin, AST, ALT, alkaline phosphatase were normal. Her C-reactive protein was 19.8. Total protein was 5.5, albumin was 2.7. Her TSH was 2.428. Her urinalysis showed the urine was positive for nitrite. There was large amount of leukocyte esterase, 20-40 wbc's, and many bacteria. The culture and sensitivity is still pending at the time of this dictation. ASSESSMENT: 1. Bilateral lower extremity cellulitis, improving. 2. Cat scratches that are oozing some serous fluid. 3. Hypokalemia, improved. Her serum potassium has risen from 2.5-3.7. 4. Acute kidney injury, is improving. Her BUN came down from 34-16 and creatinine came down from 1.4-0.9. 5. Other medical problems include neurogenic bladder requiring suprapubic catheter. 6. Urinary tract infection for which she is on Rocephin. 7. 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 PLAN: To continue with IV antibiotic. Continue with pain management. Continue with physical and occupational therapy. Await the result of urine culture. UMESH HOLCOMB MD DR: RONALD/shayna JOB#: [id number] / [id number]
[2019-01-22] MEDS: MORPHINE SULFATE 4 MG/ML DISP.SYRIN. IV PRN ×3 (01:07→13:09)
[2019-01-22] MEDS: HYDROcodone/APAP 5/325MG 1 TAB TABLET PO PRN ×2 (04:19→10:10)
[2019-01-22] MEDS: IPRATRPIUM/ALBUTEROL 0.5/2.5MG 3 ML NEBU. NEB SCH ×4 (04:53→20:34)
[2019-01-22 05:45] VITALS: BP 111/69
[2019-01-22 08:18] LABS: ALBUMIN 2.7 g/dL (3.4-5.0); CALCIUM 8.3 mg/dL (8.5-10.1); CREATININE 0.8 mg/dL (0.6-1.0); GFR 77.9; POTASSIUM 3.5 mmol/L (3.5-5.1); TOTAL BILIRUBIN 0.2 mg/dL (0.2-1.0); TOTAL PROTEIN 5.4 g/dL (6.4-8.2)
[2019-01-22 08:19] LABS: HEMATOCRIT 27.5 % (36.0-47.0); HEMOGLOBIN 8.6 g/dL (12.0-15.5); RED BLOOD COUNT 2.61 x10^6/uL (3.50-5.40); RED CELL DISTRIBUTION WIDTH 16.3 % (11.5-14.5); WHITE BLOOD COUNT 9.2 x10^3/uL (4.0-11.0)
[2019-01-22] MEDS: SPIRONOLACTONE 25 MG TABLET PO SCH ×2 (09:14→13:08)
[2019-01-22] MEDS: DULoxetine HCL 60 MG CAPSULE.DR PO SCH ×2 (09:14→20:59)
[2019-01-22] MEDS: GABAPENTIN 100 MG CAPSULE. PO SCH ×3 (09:14→21:01)
[2019-01-22] MEDS: MULTIVITAMIN with MINERAL TABLET. PO SCH ×2 (09:14→21:00)
[2019-01-22] MEDS: ASPIRIN 325 MG TABLET PO SCH ×2 (09:15→20:59)
[2019-01-22] MEDS: PANTOPRAZOLE 40 MG TABLET. PO SCH (09:15)
[2019-01-22] MEDS: metOLazone 5 MG TABLET PO SCH (09:15)
[2019-01-22] MEDS: TOPIRAMATE 25 MG TABLET. PO SCH ×2 (09:15→21:01)
[2019-01-22] MEDS: ASCORBIC ACID 500 MG TABLET PO SCH ×3 (09:15→21:00)
[2019-01-22] MEDS: POTASSIUM CHLORIDE 20 MEQ TABLET.ER. PO SCH ×2 (09:15→21:00)
[2019-01-22] MEDS: BISACODYL TAB 5 MG TABLET.DR. PO SCH ×2 (09:16→21:01)
[2019-01-22] MEDS: BACLOFEN 20 MG TABLET PO SCH ×3 (09:16→21:00)
[2019-01-22] MEDS: HYDROCORTISONE 10 MG TABLET PO SCH ×2 (09:18→21:03)
[2019-01-22] MEDS: FLUDROCORTISONE 0.1 MG TABLET PO SCH ×2 (09:19→21:02)
[2019-01-22 11:15] VITALS: BP 110/72
[2019-01-22 15:37] VITALS: BP 126/81
[2019-01-22] MEDS: ACETAMINOPHEN/CODEINE 300/30MG TABLET PO PRN (18:09)
[2019-01-22] MEDS: FAMOTIDINE 20 MG TABLET PO SCH (18:10)
[2019-01-22 19:29] VITALS: BP 100/58
[2019-01-22] MEDS: LACTOBACILLUS RHAMNOSUS GG 1 CAPSULE. PO SCH (20:59)
[2019-01-22] MEDS: MIRTAZAPINE 30 MG TABLET PO SCH (21:01)
[2019-01-22] MEDS: traZODone 100 MG TABLET. PO SCH (21:01)
[2019-01-22] MEDS: oxyCODONE ER 10 MG TAB.ER.12H PO SCH (21:03)
[2019-01-22 23:16] VITALS: BP 102/62
[2019-01-23] MEDS: IPRATRPIUM/ALBUTEROL 0.5/2.5MG 3 ML NEBU. NEB SCH ×4 (05:24→19:36)
[2019-01-23 05:39] VITALS: BP 97/64
[2019-01-23] MEDS: LACTOBACILLUS RHAMNOSUS GG 1 CAPSULE. PO SCH ×2 (08:01→23:28)
[2019-01-23] MEDS: FLUDROCORTISONE 0.1 MG TABLET PO SCH ×2 (08:01→23:26)
[2019-01-23] MEDS: MULTIVITAMIN with MINERAL TABLET. PO SCH ×2 (08:01→23:28)
[2019-01-23] MEDS: POTASSIUM CHLORIDE 20 MEQ TABLET.ER. PO SCH ×2 (08:01→23:29)
[2019-01-23] MEDS: PANTOPRAZOLE 40 MG TABLET. PO SCH (08:01)
[2019-01-23] MEDS: metOLazone 5 MG TABLET PO SCH (08:01)
[2019-01-23] MEDS: SPIRONOLACTONE 25 MG TABLET PO SCH ×2 (08:02→14:44)
[2019-01-23] MEDS: BISACODYL TAB 5 MG TABLET.DR. PO SCH ×2 (08:02→23:28)
[2019-01-23] MEDS: GABAPENTIN 100 MG CAPSULE. PO SCH ×3 (08:02→23:31)
[2019-01-23] MEDS: ASPIRIN 325 MG TABLET PO SCH ×2 (08:02→23:28)
[2019-01-23] MEDS: DULoxetine HCL 60 MG CAPSULE.DR PO SCH ×2 (08:03→23:30)
[2019-01-23] MEDS: TOPIRAMATE 25 MG TABLET. PO SCH ×2 (08:03→23:30)
[2019-01-23] MEDS: BACLOFEN 20 MG TABLET PO SCH ×3 (08:03→23:29)
[2019-01-23] MEDS: ASCORBIC ACID 500 MG TABLET PO SCH ×3 (08:03→23:29)
[2019-01-23] MEDS: NITROFURANTOIN MONOHYD/M-CRYST 100 MG CAPSULE. PO SCH (08:03)
[2019-01-23] MEDS: HYDROCORTISONE 10 MG TABLET PO SCH ×2 (08:04→23:27)
[2019-01-23] MEDS: oxyCODONE ER 10 MG TAB.ER.12H PO SCH ×2 (08:05→23:31)
[2019-01-23] MEDS: MEROPENEM 1 GM in IV NORMAL SALINE 100ML 100 ML IV SCH ×3 (08:44→23:26)
--- NOTE | 2019-01-23 10:39 | NUR ---
PT still not feeling better today. Sensitives back and rocephin resistant. Ax changed. PT reports still having pain. Pt was up to shower this am, otherwise staying in bed. Pt is able to verbalize understanding of poc. Yolanda GORDON
[2019-01-23 11:02] VITALS: BP 99/51
[2019-01-23] MEDS ORDERED: ONDANSETRON PF 4 MG/2 ML VIAL. ONE (12:40)
[2019-01-23] MEDS ORDERED: ONDANSETRON PF 4 MG/2 ML VIAL. IV PRN (12:45)
--- NOTE | 2019-01-23 14:24 | PN ---
DATE: 01/22/2019 SUBJECTIVE: The patient is resting, slightly propped up in bed, in no apparent respiratory distress. She is awake, alert, responding appropriately. Her leg swelling has improved. She is generally feeling much better. She has been up and about walking with a walker. Continued to complain of pain and she wanted something longer acting, so I discontinued her morphine and hydrocodone, switched her to OxyContin 10 mg twice a day. Her urine culture has grown more than 100,000 colony forming units per mL of gram-negative rods. The identification and sensitivity is still pending at the time of this dictation. PHYSICAL EXAMINATION: GENERAL: When I examined her, she looked well and was clearly in no apparent respiratory distress. No pallor, jaundice, cyanosis, or thyromegaly. No jugular venous distention. No limb edema. VITAL SIGNS: Her heart rate was 100, blood pressure was 110/72, temperature was 98.4, respiratory rate was 18 and oxygen saturation was 96% on 4 liters of oxygen. HEAD, EYES, EARS, NOSE, AND THROAT: Showed normocephalic, atraumatic. NECK: Supple. HEART: Showed normal first and second heart sounds. No gallop, rub or murmur. CHEST: Clear to auscultation. No crepitation or rhonchi. ABDOMEN: Distended, soft, nontender. NEUROLOGIC: She is awake, alert, responding appropriately. All her cranial nerves intact. She moves extremities without difficulty. She ambulates with a walker. Her intake over the last 24 hours was 820, output was 1275. LABORATORY DATA: Her lab work, this morning showed a white cell count of 9200, hemoglobin 8.6, hematocrit 27.5, MCV 105 and platelet count of 194,000. Her chemistry showed a serum sodium 141, potassium 3.5, chloride 105, bicarbonate 32, anion gap of 4, BUN 13, creatinine 0.8, estimated GFR was 77 mL per minute. Her glucose was 82, calcium was 8.3. Total bilirubin, AST, ALT, alkaline phosphatase were normal. Her total protein was 5.4, albumin 2.7. ASSESSMENT: 1. Bilateral lower extremity cellulitis, improving. 2. Cat scratch that are oozing some serous fluid. 3. Hypokalemia, resolved. Her serum potassium has risen from 2.5-3.5. 4. Acute kidney injury, improving. Her BUN is down from 34 to 13 and creatinine from 1.4 to 0.8. 5. Other medical problems include neurogenic bladder requiring suprapubic catheter. 6. Urinary tract infection for which she is on Rocephin. Her urine culture has grown more than 100,000 colony forming units per mL of gram-negative rods, identification and sensitivity is still pending. 7. 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 8. Chronic obstructive pulmonary disease, which she is on bronchodilator and oxygen continuously at 4 liters by nasal cannula. PLAN: To continue with IV antibiotic. Continue pain management. I did discontinue her hydrocodone and morphine and switch her to OxyContin 10 mg twice a day. Continue with physical and occupational therapy. If the result of culture becomes available tomorrow, she can be discharged home on oral antibiotic. UMESH HOLCOMB MD DR: RONALD/shayna JOB#: [id number] / [id number]
[2019-01-23] MEDS: ONDANSETRON PF 4 MG/2 ML VIAL. IV SCH ×2 (14:44→23:29)
[2019-01-23 14:46] VITALS: BP 104/65
[2019-01-23] MEDS ORDERED: methylPREDNISolone SOD SUCC PF 125 MG/2 ML VIAL. IV ONE (15:00)
[2019-01-23] MEDS ORDERED: diphenhydrAMINE HCL 25 MG CAPSULE PO ONE (15:00)
[2019-01-23] MEDS ORDERED: ACETAMINOPHEN 325 MG TABLET PO ONE (15:00)
[2019-01-23] MEDS: FAMOTIDINE 20 MG TABLET PO SCH (18:23)
[2019-01-23 19:55] VITALS: BP 98/58
--- NOTE | 2019-01-23 23:03 | PN ---
DATE: 01/23/2019 SUBJECTIVE: The patient is resting, slightly propped up in bed, no apparent distress, awake, alert, states that she is generally much better. She did have some back pain this morning, has largely subsided. Her urine culture has grown more than 100,000 colony forming units per mL of Klebsiella aerogenes, resistant to cefuroxime and she was switched to meropenem 1 gram IV 3 times a day. OBJECTIVE: GENERAL: On examining her this afternoon, she looked pale, but no jaundice, cyanosis or thyromegaly. No jugular venous distention. No limb edema. VITAL SIGNS: Her heart rate was 99, blood pressure was 104/65, temperature was 98.5, respiratory rate 20, and oxygen saturation was 91% on 4 liters of oxygen. HEAD, EYES, EARS, NOSE AND THROAT: Showed normocephalic, atraumatic. NECK: Supple. HEART: Showed normal first and second heart sounds. No gallop, rub or murmur. CHEST: Clear to auscultation. No crepitation or rhonchi. ABDOMEN: Distended, soft, nontender. No guarding or rigidity. No organomegaly. All hernial orifices intact. Bowel sounds normal. NEUROLOGIC: She was awake, alert, responding appropriately. All cranial nerves intact. She moves extremities without difficulty. She ambulates with a walker. Her intake 1670, output was 1600. LABORATORY DATA: Her lab work as of yesterday showed a white cell count 9200, hemoglobin 8.6, hematocrit 27.5, MCV 105 and platelet count 194,000. Her chemistry showed serum sodium of 141, potassium 3.5, chloride 105, bicarbonate 32, anion gap of 4, BUN 13, creatinine 0.8, estimated GFR was 77 mL per minute. Her glucose was 82, calcium was 8.3. Total bilirubin, AST, ALT, alkaline phosphatase were normal. ASSESSMENT: 1. Bilateral lower extremity cellulitis, improving. 2. Cat scratch that is oozing some serous fluid. 3. Hypokalemia, resolved. Her serum potassium is up to 4.1. 4. Acute kidney injury, improving. Her BUN is down from 34 to 13 and creatinine from 1.4 to 0.8. 5. Neurogenic bladder requiring suprapubic catheter. 6. Urinary tract infection with growth of more than 100,000 colony forming units per mL of gram-negative rods identified as Klebsiella aerogenes resistant to Rocephin. 7. [place]'s disease for which she is on hydrocortisone 20 mg twice a day and fludrocortisone 300 mcg twice a day. 8. Chronic obstructive pulmonary disease, for which she is on bronchodilator and oxygen continuously at 4 liters by nasal cannula. PLAN: Continue with meropenem. Continue with pain management. We will continue with physical and occupational therapy. We will hopefully discharge her home to go on outpatient treatment with IV antibiotic in the form of cefepime. UMESH HOLCOMB MD DR: RONALD/shayna JOB#: [id number] / [id number]
[2019-01-23] MEDS: traZODone 100 MG TABLET. PO SCH (23:30)
[2019-01-23] MEDS: MIRTAZAPINE 30 MG TABLET PO SCH (23:31)
[2019-01-23 23:34] VITALS: BP 98/61
[2019-01-24] MEDS: ACETAMINOPHEN/CODEINE 300/30MG TABLET PO PRN ×2 (04:45→15:01)
[2019-01-24 04:46] VITALS: BP 100/62
[2019-01-24] MEDS: IPRATRPIUM/ALBUTEROL 0.5/2.5MG 3 ML NEBU. NEB SCH ×3 (05:08→16:11)
[2019-01-24] MEDS: ONDANSETRON PF 4 MG/2 ML VIAL. IV SCH ×4 (06:08→17:47)
[2019-01-24] MEDS: MEROPENEM 1 GM in IV NORMAL SALINE 100ML 100 ML IV SCH ×2 (06:08→15:00)
[2019-01-24] MEDS: GABAPENTIN 100 MG CAPSULE. PO SCH ×2 (10:42→15:00)
[2019-01-24] MEDS: ASCORBIC ACID 500 MG TABLET PO SCH ×2 (10:43→15:00)
[2019-01-24] MEDS: BISACODYL TAB 5 MG TABLET.DR. PO SCH (10:43)
[2019-01-24] MEDS: PANTOPRAZOLE 40 MG TABLET. PO SCH (10:43)
[2019-01-24] MEDS: ASPIRIN 325 MG TABLET PO SCH (10:43)
[2019-01-24] MEDS: DULoxetine HCL 60 MG CAPSULE.DR PO SCH (10:43)
[2019-01-24] MEDS: metOLazone 5 MG TABLET PO SCH (10:43)
[2019-01-24] MEDS: MULTIVITAMIN with MINERAL TABLET. PO SCH (10:43)
[2019-01-24] MEDS: TOPIRAMATE 25 MG TABLET. PO SCH (10:44)
[2019-01-24] MEDS: POTASSIUM CHLORIDE 20 MEQ TABLET.ER. PO SCH (10:44)
[2019-01-24] MEDS: BACLOFEN 20 MG TABLET PO SCH ×2 (10:44→15:00)
[2019-01-24] MEDS: LACTOBACILLUS RHAMNOSUS GG 1 CAPSULE. PO SCH (10:44)
[2019-01-24] MEDS: HYDROCORTISONE 10 MG TABLET PO SCH (10:45)
[2019-01-24] MEDS: SPIRONOLACTONE 25 MG TABLET PO SCH ×2 (10:45→14:00)
[2019-01-24] MEDS: FLUDROCORTISONE 0.1 MG TABLET PO SCH (10:46)
[2019-01-24] MEDS: oxyCODONE ER 10 MG TAB.ER.12H PO SCH (10:46)
[2019-01-24 10:52] VITALS: BP 110/74
[2019-01-24] MEDS ORDERED: CEFE1FRO IV (14:51)
[2019-01-24 15:26] VITALS: BP 111/76
--- NOTE | 2019-01-24 16:21 | DS ---
DATE OF DISCHARGE: HOSPITAL COURSE: The patient is a 43-year-old female patient who was admitted on 01/20/2019 with the complaint of having scratches on her legs when she got in the middle of dog and cat fight. She got sores in her left leg and ulcers in the right. She already has edema and she got laceration in her left leg. She had this before. She is actually on the 2nd course of doxycycline and her legs are swollen, despite being on three water pills. She did complain of being generalized aches and pains, cramping, weak and her heart was beating fast. She was evaluated in the Emergency Room and was found to have severe hypokalemia with a potassium of only 2.5, generalized weakness, bilateral lower extremity edema and has cellulitis of her cat and dog scratches and heel ulcer and has had UTI and microcytic anemia. She also carries a diagnosis of Labette's disease, for which she is on hydrocortisone and fludrocortisone. She was started initially on IV ceftriaxone. We did switch her back onto her oral furosemide, continue with her metolazone. Her urine culture has eventually grown more than 100,000 colony forming units per mL of Klebsiella aerogenes that was resistant to ceftriaxone; however, it was sensitive to cefepime as well as levofloxacin and meropenem. She did receive 2 days' worth of IV meropenem and a decision was made to discharge her home to continue with outpatient IV antibiotic as she has a Port-A-Cath. She will be coming back to the hospital every day and to continue with cefepime 1 gram daily. PHYSICAL EXAMINATION: GENERAL: When I examined her today, she was resting slightly propped up in bed, in no apparent respiratory distress. No pallor, jaundice or cyanosis. No lymphadenopathy, no thyromegaly. She is actually pale, but no jaundice, cyanosis or thyromegaly. No jugular venous distention. No limb edema. VITAL SIGNS: Her heart rate was 110, blood pressure was 110/74, temperature was 98.4, respiratory rate 20, and oxygen saturation was 98% on 4 liters of oxygen. HEAD, EYES, EARS, NOSE AND THROAT: Showed normocephalic, atraumatic. NECK: Supple. HEART: Showed normal first and second heart sounds with no gallop, rub or murmur. CHEST: Clear to auscultation. No crepitation or rhonchi. ABDOMEN: Distended, soft, nontender. NEUROLOGIC: She is awake, alert, responding appropriately. All cranial nerves intact. She moves extremities without difficulty. She ambulates with a walker. Her intake over the last 24 hours was 1400, output was 2400. LABORATORY DATA: Her most recent lab work this morning showed a white cell count of 9200, hemoglobin 8.6, hematocrit 27, MCV 105 and platelet count of 194,000. Her chemistry showed a serum sodium of 141, potassium 3.5, chloride 105, bicarbonate 32, anion gap of 4, BUN 13, creatinine 0.8, estimated GFR was 77.9 mL. Her glucose was 82, calcium was 8.3. Total bilirubin, AST, ALT, alkaline phosphatase were normal. Total protein was 5.4, albumin 2.7. Her prothrombin time was 9.6, INR was 0.9, aPTT was 26 and D-dimer was 0.48. Urinalysis showed positive for nitrite and there was 20-40 wbc's. There was large amount of leukocyte esterase. Toxic screen was positive for opiates. Her urine culture showed more than 100,000 colony forming units per mL of Klebsiella aerogenes, which is resistant to ceftriaxone, but sensitive to cefepime as well as quinolones, meropenem, but resistant to nitrofurantoin. The patient was advised to discontinue nitrofurantoin. DISCHARGE MEDICATIONS: She was discharged home to continue on following medications: Cefepime 1 gram IV daily for 7 days, Tylenol with Codeine 2 tablets every 6 hours, Tylenol with Codeine 1 tablet p.r.n. every 6 hours. She is on ascorbic acid 500 mg 3 times a day; aspirin 325 mg twice a day; baclofen 20 mg 3 times a day; cranberry extract with vitamin C 1 tablet 3 times a day; cyanocobalamin 1000 mcg/mL intramuscular every 2 weeks; duloxetine for Cymbalta 60 mg twice a day; fludrocortisone 0.1 mg, she takes 300 mcg p.o. twice a day; gabapentin 100 mg 3 times a day; Mucinex 600 mg 1 tablet twice a day; hydrocortisone 20 mg twice a day; melatonin 5-10 mg at bedtime; metolazone 5 mg daily; mirtazapine 30 mg at bedtime; multivitamin 1 tablet twice a day; Protonix 40 mg once a day; potassium chloride 40 mEq daily. She is on potassium chloride 60 mEq at bedtime, ranitidine 300 mg daily, spironolactone 25 mg twice a day, topiramate 50 mg twice a day, trazodone 100 mg twice a day. FINAL DISCHARGE DIAGNOSES: 1. Bilateral lower extremity cellulitis, improved. 2. Cat scratch that is oozing some serous fluid, resolved. 3. Hypokalemia, resolved. Her potassium has risen from 2.5-4. 4. Acute kidney injury, improved. Her creatinine is down from 1.4 to 0.8 and BUN from 34-13. 5. Neurogenic bladder requiring suprapubic catheter. 6. Urinary tract infection with growth of more than 100,000 colony forming units of Klebsiella aerogenes. 7. Labette's disease, for which she is on hydrocortisone 20 mg twice a day and fludrocortisone 300 mcg twice a day. 8. Chronic obstructive pulmonary disease, for which she is on bronchodilator and oxygen continuously at 4 liters nasal cannula. The patient will be receiving her IV antibiotic as an outpatient in the hospital every day for 7 days. She is encouraged to make an appointment to see her primary care physician at the end of treatment. UMESH HOLCOMB MD DR: RONALD/shayna JOB#: [id number] / [id number]
[2019-01-24] MEDS: FAMOTIDINE 20 MG TABLET PO SCH (17:47)
--- NOTE | 2019-01-24 18:15 | NUR ---
Pt left via WC, escorted by this RN, to private vehicle driven by her . Port-a-cath and suprapubic catheter dressings changed p/t departure. Pt had all her belongings at time of departure except for a missing slipper. Room was searched, and pt stated, "I think it was left in the ED because I didn't wear it up here." Discharge instructions reviewed and pt provided opportunity to ask questions. Josue Barnhart RN
[2019-01-24] MEDS ORDERED: CEFUROXIME SODIUM IV SCH (22:00)
[2019-01-24] MEDS ORDERED: NORMAL SALINE IV SCH (22:00)
[2019-02-03] MEDS ORDERED: CYANOCOBALAMIN (VITAMIN B-12) 1,000 MCG/ML VIAL IM SCH (09:00)
== END 2019-01-24 18:15 | disposition home or self-care (01) | DRG 682 ==
LOC: ER 18:03 → 1 SOUTH 21:00
PROVIDERS: ADMIT Internal Medicine; ATTEND Internal Medicine
DX: N17.0 Acute kidney failure with tubular necrosis (principal); R65.11 Systemic inflammatory response syndrome (SIRS) of non-infectious origin with acute organ dysfunction; L03.115 Cellulitis of right lower limb; N39.0 Urinary tract infection, site not specified; E27.1 Primary adrenocortical insufficiency; I69.354 Hemiplegia and hemiparesis following cerebral infarction affecting left non-dominant side; L03.116 Cellulitis of left lower limb; E87.6 Hypokalemia; D64.9 Anemia, unspecified; N31.9 Neuromuscular dysfunction of bladder, unspecified; D50.9 Iron deficiency anemia, unspecified; Z16.19 Resistance to other specified beta lactam antibiotics; F17.210 Nicotine dependence, cigarettes, uncomplicated; I11.0 Hypertensive heart disease with heart failure; I50.9 Heart failure, unspecified; J44.9 Chronic obstructive pulmonary disease, unspecified; S81.812A Laceration without foreign body, left lower leg, initial encounter; W55.03XA Scratched by cat, initial encounter; Z82.49 Family history of ischemic heart disease and other diseases of the circulatory system; Z86.14 Personal history of Methicillin resistant Staphylococcus aureus infection; Z86.711 Personal history of pulmonary embolism; Z87.442 Personal history of urinary calculi; Z90.710 Acquired absence of both cervix and uterus; Z99.81 Dependence on supplemental oxygen; Z86.19 Personal history of other infectious and parasitic diseases; Z83.3 Family history of diabetes mellitus; F32.9 Major depressive disorder, single episode, unspecified; F41.9 Anxiety disorder, unspecified; B96.1 Klebsiella pneumoniae [K. pneumoniae] as the cause of diseases classified elsewhere; Z88.2 Allergy status to sulfonamides; Z88.8 Allergy status to other drugs, medicaments and biological substances; Z91.013 Allergy to seafood
CPT/HCPCS: 36415; 71045; 80048; 80053; 80076; 80307; 81001; 82550; 83690; 83735; 83880; 84443; 84484; 85025; 85027; 85045; 85379; 85610; 85651; 85730; 86140; 87086; 87186; 93005; 93970; 94640; 94760; 96365; 99406; G0238; J0696; J2185; J2270; J2405; J2930; J3480; J7120; J7620; 97110; 97116; 97530; 99285-25

== ENCOUNTER 2019-02-07 14:52 | Inpatient (IN) | payer OTHER, MEDICAID ==
[~2019-02-07] VITALS: Ht 152.4 cm; Wt 85.0 kg
[~2019-02-07 14:52] MED LIST changes: +ACET-704 PO; +ASPI325T8 PO; +CEFE1FRO IV; +CEFU500T46 PO; +CRAN1CAP12 PO; +HYDR5TAB3 PO; +METO5TAB4 PO
--- NOTE | 2019-02-07 15:27 | PHYS DOC ---
Past History Past Medical History: Asthma, CHF, COPD, DVT, Hypertension, Kidney Stones, MRSA, UTI, Other Additional Past Medical Histor: adrenal insufficiency, spinal stenosis, pulmonary embolism Past Surgical History: Cholecystectomy, Hysterectomy, Tonsillectomy, Other Additional Past Surgical Histo: gastrectomy, ventral hernia repair Alcohol Use: None Drug Use: None Adult General Chief Complaint Chief Complaint: LOWER EXTREMITY SWELLING HPI HPI Patient is a 43-year-old female who presents to the emergency department for evaluation. She states she just hasn't felt well for the past few days. She also reports some recurrence of her pedal edema. She was recently hospitalized here with bilateral lower extremity edema, cellulitis in the setting of a recent cat scratch, and was discharged to complete a course of outpatient antibiotics which she states that she has completed. She said that the swelling seems to have recu rred on her legs bilaterally. She denies any new leg pain. She does have some erythema on her legs, but according to the nurse that is caring for the patient in the emergency department, and also cared for her while hospitalized on the floor 2 weeks ago, her legs look better than when she was in the hospital. They are less erythematous and less edematous. The patient denies any chest pain, pleuritic pain, dizziness or lightheadedness, or fevers. She does appear somewhat sleepy, almost sedated, but is able to provide a coherent history. She denies any other recent injuries. Her recent hospital stay have been reviewed. There are no alleviating or exacerbating factors to her symptoms otherwise. The patient is accompanied looks past medical history, significant for COPD on home oxygen, tobacco abuse, stroke with left-sided weakness, hypertension, MRSA, adrenal insufficiency on fludrocortisone and hydrocortisone, gastroparesis, spinal stenosis, C. difficile colitis, kidney stones, and anxiety. Her chart says that she has a history of a pulmonary embolism in the past but the patient denies this. Review of Systems Review of Systems Constitutional: Denies fever or chills [] Eyes: Denies change in visual acuity, redness, or eye pain [] HENT: Denies nasal congestion or sore throat [] Respiratory: Denies cough or new shortness of breath [] Cardiovascular: The patient denies any shortness of breath, chest pain, palpitations, or orthopnea. Denies pleuritic chest pain. [] GI: Denies abdominal pain, nausea, vomiting, bloody stools or diarrhea [] : Denies dysuria or hematuria [] Musculoskeletal: Denies back pain or joint pain [] Integument: Denies rash or skin lesions [] Neurologic: Denies headache, focal weakness or sensory changes [] Endocrine: Denies polyuria or polydipsia [] All other systems were reviewed and found to be within normal limits, except as documented in this note. Allergies Allergies Allergies Coded Allergies Type Severity Reaction Last Updated Verified Sulfa (Sulfonamide Antibiotics) Allergy Intermediate 10/11/18 Yes citric acid Allergy Intermediate 10/11/18 Yes shellfish derived Allergy Intermediate 10/11/18 Yes I S O L A T I O N *CONTACT* Allergy Unknown 10/11/18 Yes Physical Exam Physical Exam PHYSICAL EXAM: CONSTITUTIONAL: Well developed, well nourished HEAD: normocephalic, atraumatic EENT: PERRL, EOMI. Conjunctivae normal color, sclerae non-icteric; moist mucous membranes. NECK: Supple, non-tender; no meningismus. LUNGS: Lungs CTA, breathing even and unlabored. Normal air movement. HEART: Regular rate and rhythm, no murmur CHEST: No deformity; non-tender ABDOMEN: The abdomen is soft, and non-tender, no masses or bruits. EXTREM: Normal ROM; no deformity, no calf tenderness. Normal pulses palpable in all extremities. There is 1+ bilateral pedal edema. There is mild erythema and warmth to the lower extremities bilaterally, circumferentially around the lower legs. There are no open wounds. SKIN: No rash; no diaphoresis NEURO: Patient is somnolent but Alert; normal speech and cognition; CN's grossly intact; strength grossly intact without focal deficit. BACK: No CVA TTP. Current Patient Data Vital Signs Vital Signs Date Time Temp Pulse Resp B/P (MAP) Pulse Ox O2 Delivery O2 Flow Rate FiO2 02/07/19 15:10 98.2 89 20 94 Room Air Lab Results Laboratory Tests Test 02/07/19 15:27 02/07/19 15:35 02/07/19 15:40 White Blood Count 10.5 x10^3/uL Red Blood Count 3.15 x10^6/uL Hemoglobin 10.1 g/dL Hematocrit 31.2 % Mean Corpuscular Volume 99 fL Mean Corpuscular Hemoglobin 32 pg Mean Corpuscular Hemoglobin Concent 32 g/dL Red Cell Distribution Width 15.8 % Platelet Count 258 x10^3/uL Neutrophils (%) (Auto) 72 % Lymphocytes (%) (Auto) 21 % Monocytes (%) (Auto) 5 % Eosinophils (%) (Auto) 1 % Basophils (%) (Auto) 1 % Neutrophils # (Auto) 7.6 x10^3uL Lymphocytes # (Auto) 2.2 x10^3/uL Monocytes # (Auto) 0.5 x10^3/uL Eosinophils # (Auto) 0.2 x10^3/uL Basophils # (Auto) 0.1 x10^3/uL Prothrombin Time < 9.3 SEC Prothromb Time International Ratio 0.9 Sodium Level 143 mmol/L Potassium Level 2.2 mmol/L Chloride Level 99 mmol/L Carbon Dioxide Level 41 mmol/L Anion Gap 3 Blood Urea Nitrogen 31 mg/dL Creatinine 1.5 mg/dL Estimated GFR (Cockcroft-Gault) 37.7 BUN/Creatinine Ratio 21 Glucose Level 106 mg/dL Lactic Acid Level 1.4 mmol/L Calcium Level 8.7 mg/dL Magnesium Level 2.1 mg/dL Total Bilirubin 0.4 mg/dL Aspartate Amino Transf (AST/SGOT) 19 U/L Alanine Aminotransferase (ALT/SGPT) 18 U/L Alkaline Phosphatase 77 U/L Troponin I Quantitative < 0.017 ng/mL CV-Hzn-X-Type Natriuretic Peptide 157 pg/mL Total Protein 6.2 g/dL Albumin 3.2 g/dL Albumin/Globulin Ratio 1.1 Blood Gas pH 7.52 Blood Gas PCO2 51 mmHg Blood Gas PO2 136 mmHg Blood Gas HCO3 42 mmol/L Arterial Bld O2 Saturation (Calc) 99 % FiO2 36 % Urine Collection Type Suprapubic Urine Color Paulina Urine Clarity Cloudy Urine pH 5.5 Urine Specific [place] 1.010 Urine Protein Neg Urine Glucose (UA) 100 mg/dL Urine Ketones (Stick) Neg mg/dL Urine Blood Trace Urine Nitrite Pos Urine Bilirubin Neg Urine Urobilinogen Dipstick 1 mg/dL Urine Leukocyte Esterase Small Urine RBC 3-5 /HPF Urine WBC 5-10 /HPF Urine Squamous Epithelial Cells Few /LPF Urine Bacteria Mod /HPF Urine Mucus Mod /LPF Urine Yeast Present /HPF Urine Opiates Screen Neg Urine Methadone Screen Neg Urine Barbiturates Neg Urine Phencyclidine Screen Neg Urine Amphetamine/Methamphetamine Neg Urine Benzodiazepines Screen Neg Urine Cocaine Screen Neg Urine Cannabinoids Screen Neg Urine Ethyl Alcohol Neg Current Medications Medications (Trade) Dose Ordered Sig/Mani Route PRN Reason Start Time Stop Time Status Last Admin Dose Admin Potassium Chloride (Klor-Con) 40 meq 1X ONCE PO 02/07/19 16:15 02/07/19 16:16 DC 02/07/19 16:21 Potassium Chloride 100 ml @ 50 mls/hr Q1H IV 02/07/19 16:15 02/07/19 18:14 02/07/19 16:21 EKG EKG Normal sinus rhythm at a rate of 82 beats for minute, left axis deviation, normal intervals, there are no acute ischemic ST/T changes. Radiology/Procedures Radiology/Procedures PROCEDURE: CHEST PA & LATERAL EXAM: Chest, 2 views. HISTORY: Edema. COMPARISON: 01/31/2019 FINDINGS: 2 views of the chest are obtained. There is increased lingular and right superhilar opacity likely due to atelectasis or interstitial infiltrate. There is no pleural effusion or pneumothorax. The heart is normal in size. There is a port catheter with the tip in the superior cavoatrial junction. IMPRESSION: Suspected lingular and right superhilar atelectasis or interstitial infiltrate. [] Course & Med Decision Making Course & Med Decision Making Pertinent Labs and Imaging studies reviewed. (See chart for details) []4:20 PM:The patient's condition remains stable. I spoke with the hospitalist, who accepted the patient to the hospital for further evaluation and treatment. I do not think that the patient has pneumonia, she has no acute cough, acute shortness of breath, or hypoxia or respiratory complaints. Dragon Disclaimer Dragon Disclaimer This electronic medical record was generated, in whole or in part, using a voice recognition dictation system. Departure Departure: Impression: Primary Impression: Hypokalemia Additional Impression: Renal insufficiency Disposition: ADMITTED INPATIENT Admitting Physician: Lenin Simon Condition: STABLE Referrals: GABRIEL DO MD (PCP) Problem Qualifiers MI ALCANTAR MD Feb 07, 2019 15:27
[2019-02-07 15:47] LABS: BASO # 0.1 x10^3/uL (0.0-0.2); BASO % 1 % (0-3); EOS # 0.2 x10^3/uL (0.0-0.7); EOS % 1 % (0-3); HEMATOCRIT 31.2 % (36.0-47.0); HEMOGLOBIN 10.1 g/dL (12.0-15.5); LYMPH # 2.2 x10^3/uL (1.0-4.8); LYMPH % 21 % (24-48); MEAN CORPUSCULAR HEMOGLOBIN 32 pg (25-35); MEAN CORPUSCULAR HGB CONC 32 g/dL (31-37); MEAN CORPUSCULAR VOLUME 99 fL (79-100); MONO # 0.5 x10^3/uL (0.0-1.1); MONO % 5 % (0-9); NEUT # 7.6 x10^3uL (1.8-7.7); NEUT % 72 % (31-73); PLATELET COUNT 258 x10^3/uL (140-400); RED BLOOD COUNT 3.15 x10^6/uL (3.50-5.40); RED CELL DISTRIBUTION WIDTH 15.8 % (11.5-14.5); WHITE BLOOD COUNT 10.5 x10^3/uL (4.0-11.0)
[2019-02-07 15:53] LABS: BGAS PH 7.52 (7.35-7.45)
[2019-02-07 16:04] LABS: ALBUMIN 3.2 g/dL (3.4-5.0); ALBUMIN/GLOBULIN RATIO 1.1 (1.0-1.7); CALCIUM 8.7 mg/dL (8.5-10.1); CREATININE 1.5 mg/dL (0.6-1.0); GFR 37.7; MAGNESIUM 2.1 mg/dL (1.8-2.4); TOTAL BILIRUBIN 0.4 mg/dL (0.2-1.0); TOTAL PROTEIN 6.2 g/dL (6.4-8.2)
[2019-02-07 16:05] LABS: POTASSIUM 2.2 mmol/L (3.5-5.1)
[2019-02-07 16:08] LABS: AMPHETAMINE/METHAMPHETAMINE NEG (NEG); BARBITURATES NEG (NEG); BENZODIAZEPINES NEG (NEG); CANNABINOIDS NEG (NEG); COCAINE NEG (NEG); METHADONE NEG (NEG); OPIATES NEG (NEG); PHENCYCLIDINE NEG (NEG)
[2019-02-07 16:11] LABS: BILIRUBIN,URINE NEG (NEG); CLARITY,URINE CLOUDY; COLOR,URINE AMBER; GLUCOSE,URINE 100 mg/dL (NEG); NITRITE,URINE POS (NEG); UROBILINOGEN,URINE 1 mg/dL (0.2 mg/dL)
--- NOTE | 2019-02-07 16:11 | RAD ---
EXAM: Chest, 2 views. HISTORY: Edema. COMPARISON: 01/31/2019 FINDINGS: 2 views of the chest are obtained. There is increased lingular and right superhilar opacity likely due to atelectasis or interstitial infiltrate. There is no pleural effusion or pneumothorax. The heart is normal in size. There is a port catheter with the tip in the superior cavoatrial junction. IMPRESSION: Suspected lingular and right superhilar atelectasis or interstitial infiltrate. Electronically signed by: Alana Quiroz MD (02/07/2019 4:09 PM) [place] [id number]
[2019-02-07 16:12] LABS: BACTERIA,URINE MOD /HPF (0-FEW); SQUAMOUS EPITHELIAL CELL,UR FEW /LPF; YEAST,URINE PRESENT /HPF
[2019-02-07] MEDS ORDERED: POTASSIUM CHLORIDE 20 MEQ TABLET.ER. PO ONE ×2 (16:15→19:00)
[2019-02-07] MEDS: POTASSIUM CHLORIDE 20MEQ 100 ML IV SCH ×2 (16:20→17:36)
[2019-02-07 18:15] VITALS: BP 97/62
--- NOTE | 2019-02-07 18:27 | EKG ---
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
[2019-02-07] MEDS: ACETAMINOPHEN/CODEINE 300/30MG TABLET PO PRN (19:36)
[2019-02-07 20:00] VITALS: BP 99/64
[2019-02-07 20:05] VITALS: BP 98/66
[2019-02-07 20:10] VITALS: BP 106/70
[2019-02-07] MEDS: ASCORBIC ACID 500 MG TABLET PO SCH (20:23)
[2019-02-07] MEDS: FAMOTIDINE 20 MG TABLET PO SCH (20:23)
[2019-02-07] MEDS: ASPIRIN 325 MG TABLET PO SCH (20:23)
[2019-02-07] MEDS: GABAPENTIN 100 MG CAPSULE. PO SCH (20:23)
[2019-02-07] MEDS: TOPIRAMATE 25 MG TABLET. PO SCH (20:23)
[2019-02-07] MEDS: MIRTAZAPINE 30 MG TABLET PO SCH (20:23)
[2019-02-07] MEDS: traZODone 100 MG TABLET. PO SCH (20:23)
[2019-02-07] MEDS: DULoxetine HCL 60 MG CAPSULE.DR PO SCH (20:23)
[2019-02-07] MEDS: BACLOFEN 20 MG TABLET PO SCH (20:23)
[2019-02-07] MEDS: POTASSIUM CHLORIDE 20 MEQ TABLET.ER. PO SCH (20:24)
--- NOTE | 2019-02-07 20:26 | HP ---
ADMIT DATE: 02/07/2019 HISTORY OF PRESENT ILLNESS: The patient is a 43-year-old female patient who presented to the Emergency Room complaining of generalized weakness, swelling of both lower extremities. She has completed a course of antibiotic in the form of IV cefepime. She stated that the swelling seems to have recurred in her legs bilaterally. Denied any leg pain. She said that has had multiple episodes of diarrhea and was also sick to her stomach and generally weak. In the Emergency Room, she was extensively investigated and her lab work showed that she has severe hypokalemia with potassium of 2.2. Her creatinine was slightly elevated at 1.5 and was admitted for treatment of severe hypokalemia and mild renal insufficiency. I did not see any redness. Her lower extremity scratches and edema is much milder than before. PAST MEDICAL HISTORY: Significant for bronchial asthma, chronic obstructive pulmonary disease. She also had mild stroke with left-sided weakness, hypertension, history of methicillin-resistant Staphylococcus aureus infection, adrenal insufficiency, gastroparesis, lumbar spinal stenosis. She does have history of C. diff colitis, pulmonary embolism, hemorrhoids, hiatal hernia, body image disorder, kidney stones, foot drop, anxiety, depression and tobacco use. PAST SURGICAL HISTORY: Significant for tonsillectomy, adenoidectomy, cholecystectomy, gastrectomy with multiple abdominal surgeries with history of J-tube placement, ventral hernia repair, cyst excision and hysterectomy. ALLERGIES: She is allergic to SULFA DRUGS, CITRIC ACID and SHELLFISH. FAMILY HISTORY: She has 2 brothers, both older and alive. Her older brother has diabetes and hypertension. The younger brother has hypertension. His diabetes was ameliorated after he underwent bypass surgery. Her father is still alive at the age of 73. He is known to have myocardial infarction and underwent 5-vessel coronary artery bypass graft surgery. Mother is still alive at the age of 72 and has had myocardial infarction for which she underwent PCI with stent deployment. SOCIAL HISTORY: She is , has 1 son. She smokes half a pack a day. She does not drink alcohol or use any recreational drugs. 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 MEDICATIONS: She is currently on following medications: She is on baclofen 20 mg 3 times a day, spironolactone 25 mg twice a day, aspirin 325 mg twice a day, acetaminophen with codeine 2 tablets every 6 hours, gabapentin 100 mg 3 times a day, topiramate 50 mg twice a day, duloxetine 60 mg for Cymbalta twice a day, mirtazapine 30 mg at bedtime, trazodone 100 mg at bedtime, potassium chloride 40 mEq daily, potassium chloride 20 mEq, she takes 6 mg at bedtime, metolazone 5 mg daily. She is on Mucinex 600 mg twice a day, ranitidine 300 mg once a day, Protonix 40 mg once a day, fludrocortisone acetate 300 mcg twice a day, hydrocortisone 20 mg twice a day, cyanocobalamin 1000 mcg every 2 weeks, ascorbic acid 500 mg 3 times a day, multivitamin 1 tablet twice a day, cranberry extract with vitamin C 1 tablet 3 times a day and melatonin 5-10 mg at bedtime. REVIEW OF SYSTEMS: As per history of present illness. PHYSICAL EXAMINATION: GENERAL: On arrival to the Emergency Room, she looked well and was clearly in no apparent respiratory distress. The patient was somnolent, but arousable. NEUROLOGIC: All her cranial nerves intact. Sensory grossly intact without focal deficit. LABORATORY DATA: On admission showed white cell count of 10,500, hemoglobin 10, hematocrit 31, MCV 99 and platelet count 258,000. Her chemistry showed serum sodium 143, potassium 2.2, chloride 99, bicarbonate 41, anion gap of 3, BUN 31, creatinine 1.5, estimated GFR was 38 mL per minute. Her glucose 106, lactic acid was 1.4, calcium was 8.7, magnesium 2.1. Total bilirubin, AST, ALT, alkaline phosphatase were normal. Her beta natriuretic peptide was 157. Total protein was 6.2, albumin 3.2. Her blood gas showed pH of 7.52, pCO2 of 51, pO2 of 136, bicarbonate 42 and oxygen saturation was 99% on FiO2 of 36%. Her prothrombin time was 9.3, INR was 0.9. Urinalysis showed the urine was chandra, cloudy with pH of 5.5, specific gravity of 1.010. The urine was negative for protein. There was small amount of glucose, negative for ketones, trace of blood, positive for nitrite, negative for bilirubin. There was small amount of leukocyte esterase, 3-5 rbc's, 5-10 wbc's and moderate amount of bacteria. Her toxic screen was essentially negative. She did have a chest x-ray, which showed that the patient has increased lingular and right suprahilar opacity, likely due to atelectasis or interstitial infiltrate. There is no pleural effusion or pneumothorax. The heart is normal in size. There is Port-A-Cath with the tip in the superior cavoatrial junction. The impression is that the patient has suspected lingular and right suprahilar atelectasis or interstitial infiltrate. ASSESSMENT AND PLAN: The patient was admitted with severe hypokalemia. Her potassium was 2.2. She has no leukocytosis or normochromic normocytic anemia. Her toxic screen was negative and urinalysis was mostly unremarkable. She has diarrhea, so we will send stool for C. diff. Continue to replenish her potassium and decide on further management accordingly. UMESH HOLCOMB MD DR: RONALD/shayna JOB#: [id number] / [id number]
[2019-02-07] MEDS ORDERED: NON FORMULARY ITEM (Cranberry Extract/Vit C (Azo Cranberry Softgel) 1 EACH) PO SCH (21:00)
[2019-02-07] MEDS ORDERED: POTASSIUM CHLORIDE 20 MEQ TABLET.ER. PO SCH (21:00)
[2019-02-07] MEDS: HYDROCORTISONE 10 MG TABLET PO SCH (21:00)
[2019-02-07] MEDS: FLUDROCORTISONE 0.1 MG TABLET PO SCH (21:38)
[2019-02-07 23:05] VITALS: BP 86/59
[2019-02-08] MEDS: ACETAMINOPHEN/CODEINE 300/30MG TABLET PO PRN ×3 (01:18→15:47)
[2019-02-08 06:17] VITALS: BP 89/59
[2019-02-08 06:19] LABS: BASO # 0.1 x10^3/uL (0.0-0.2); BASO % 1 % (0-3); EOS # 0.2 x10^3/uL (0.0-0.7); EOS % 2 % (0-3); HEMATOCRIT 28.1 % (36.0-47.0); HEMOGLOBIN 8.9 g/dL (12.0-15.5); LYMPH # 2.4 x10^3/uL (1.0-4.8); LYMPH % 25 % (24-48); MEAN CORPUSCULAR HEMOGLOBIN 32 pg (25-35); MEAN CORPUSCULAR HGB CONC 32 g/dL (31-37); MEAN CORPUSCULAR VOLUME 102 fL (79-100); MONO # 0.4 x10^3/uL (0.0-1.1); MONO % 4 % (0-9); NEUT # 6.7 x10^3uL (1.8-7.7); NEUT % 69 % (31-73); PLATELET COUNT 229 x10^3/uL (140-400); RED BLOOD COUNT 2.76 x10^6/uL (3.50-5.40); RED CELL DISTRIBUTION WIDTH 16.2 % (11.5-14.5); WHITE BLOOD COUNT 9.7 x10^3/uL (4.0-11.0)
[2019-02-08 06:23] LABS: CALCIUM 8.3 mg/dL (8.5-10.1); CREATININE 1.1 mg/dL (0.6-1.0); MAGNESIUM 2.3 mg/dL (1.8-2.4); POTASSIUM 3.1 mmol/L (3.5-5.1)
[2019-02-08] MEDS ORDERED: SPIRONOLACTONE 25 MG TABLET PO SCH (09:00)
[2019-02-08] MEDS: HYDROCORTISONE 10 MG TABLET PO SCH ×2 (09:00→21:00)
[2019-02-08] MEDS ORDERED: POTASSIUM CHLORIDE 20 MEQ TABLET.ER. PO SCH (09:00)
[2019-02-08] MEDS: ONDANSETRON PF 4 MG/2 ML VIAL. IV PRN ×2 (09:09→15:47)
[2019-02-08] MEDS: POTASSIUM CHLORIDE 20 MEQ TABLET.ER. PO SCH ×4 (09:15→21:57)
[2019-02-08] MEDS: TOPIRAMATE 25 MG TABLET. PO SCH ×2 (09:16→21:58)
[2019-02-08] MEDS: metOLazone 5 MG TABLET PO SCH (09:16)
[2019-02-08] MEDS: ASPIRIN 325 MG TABLET PO SCH ×2 (09:16→21:57)
[2019-02-08] MEDS: BACLOFEN 20 MG TABLET PO SCH ×3 (09:16→21:57)
[2019-02-08] MEDS: DULoxetine HCL 60 MG CAPSULE.DR PO SCH ×2 (09:16→21:00)
[2019-02-08] MEDS: GABAPENTIN 100 MG CAPSULE. PO SCH ×3 (09:16→21:57)
[2019-02-08] MEDS: ASCORBIC ACID 500 MG TABLET PO SCH ×3 (09:16→21:58)
[2019-02-08] MEDS: PANTOPRAZOLE 40 MG TABLET. PO SCH (09:16)
[2019-02-08] MEDS: MULTIVITAMIN with MINERAL TABLET. PO SCH (09:16)
[2019-02-08] MEDS: FLUDROCORTISONE 0.1 MG TABLET PO SCH ×2 (09:17→22:00)
[2019-02-08 11:14] VITALS: BP 80/51
[2019-02-08 15:02] VITALS: BP 100/65
[2019-02-08] MEDS: FAMOTIDINE 20 MG TABLET PO SCH (18:02)
[2019-02-08 18:55] LABS: CALCIUM 8.2 mg/dL (8.5-10.1); CREATININE 1.2 mg/dL (0.6-1.0); GFR 48.8; POTASSIUM 3.4 mmol/L (3.5-5.1)
--- NOTE | 2019-02-08 19:08 | RAD ---
Exam: Right shoulder 2 views INDICATION: Recurrent falls with pain in the right shoulder TECHNIQUE: Frontal view of the shoulder in internal and external rotation with transscapular Y view. Comparisons: None FINDINGS: Bone mineralization and development is normal. No acute or healed fractures. Soft tissues are unremarkable. Joint spaces are well-maintained. IMPRESSION: No acute osseous abnormality. Electronically signed by: Rian Bermeo MD (02/08/2019 7:05 PM) [facility]
[2019-02-08] MEDS: LIDOCAINE (700MG/PATCH) PATCH. TD SCH (20:16)
[2019-02-08 20:30] VITALS: BP 90/56
[2019-02-08] MEDS: PATCH REMOVAL. MC SCH (20:49)
[2019-02-08] MEDS: MIRTAZAPINE 30 MG TABLET PO SCH (21:58)
[2019-02-08] MEDS: traZODone 100 MG TABLET. PO SCH (21:58)
--- NOTE | 2019-02-09 00:09 | PN ---
DATE: 02/08/2019 SUBJECTIVE: The patient is resting, slightly propped up in bed, no apparent distress, complaining of pain in her right shoulder and her lower back. She said she fell 4 or 6 times and had a bruise in her right sacral area, something she did not inform us about yesterday. PHYSICAL EXAMINATION: GENERAL: When I examined her, she looked well and was clearly in no apparent respiratory distress. No pallor, jaundice, cyanosis, or thyromegaly. No jugular venous distension. No limb edema. VITAL SIGNS: Her heart rate was 98, blood pressure 100/65, temperature was 98.1, respiratory rate 20, and oxygen saturation was 95% on 4 liters of oxygen. HEAD, EYES, EARS, NOSE, AND THROAT: Normocephalic, atraumatic. NECK: Supple. HEART: Showed normal first and second heart sounds. No gallop or murmur. CHEST: Clear to auscultation. No crepitation or rhonchi. ABDOMEN: Distended, soft, nontender. No guarding or rigidity. No organomegaly. All hernial orifices intact. Bowel sounds normal. NEUROLOGIC: She is awake, alert, responding appropriately. All cranial nerves intact. She moves extremities without difficulty. She has pain in her right shoulder. Her intake was 1200, output was 1550. LABORATORY DATA: Her lab work this morning showed a white cell count 9700, hemoglobin 8.9, hematocrit 28, MCV 102, platelet count 229,000. Her serum sodium was 144, potassium 3.1, chloride 104, bicarbonate 35, anion gap of 5, BUN 22, creatinine 1.1. Estimated GFR was 54 mL per minute. Glucose was 85, calcium was 8.3, magnesium was 2.3. Her urinalysis was unremarkable. Toxic screen was negative. ASSESSMENT: Generalized weakness. According to her, she has also multiple falls. She said she fell about 6 times, although she gave us this information only today. Anyhow, she was evaluated in the Emergency yesterday, when she was extremely hypokalemic with potassium 2.2. Her creatinine was slightly elevated at 1.5. She has received oral and IV potassium yesterday and today. We will start her on potassium 40 mEq 4 times a day and her lab work showed that her potassium is up to 3.1 and her creatinine is down to 1.1. Other issues, obviously bronchial asthma, chronic obstructive pulmonary disease. She had mild stroke with left-sided weakness, hypertension. She has lumbar spinal stenosis, gastroparesis, and adrenal insufficiency. She has also history of pulmonary embolism, hiatal hernia, body image disorder, kidney stones, footdrop, anxiety, depression, and tobacco use. PLAN: My plan is to arrange for her to have a x-ray of her right shoulder. We will repeat her lab work this evening and we will start her on physical and occupational therapy tomorrow. UMESH HOLCOMB MD DR: RONALD/shayna JOB#: [id number] / [id number]
[2019-02-09] MEDS: ACETAMINOPHEN/CODEINE 300/30MG TABLET PO PRN ×3 (00:59→18:30)
[2019-02-09 01:04] VITALS: BP 98/63
[2019-02-09 06:28] VITALS: BP 90/60
[2019-02-09 06:29] LABS: HEMATOCRIT 28.4 % (36.0-47.0); RED BLOOD COUNT 2.79 x10^6/uL (3.50-5.40); RED CELL DISTRIBUTION WIDTH 15.5 % (11.5-14.5); WHITE BLOOD COUNT 9.7 x10^3/uL (4.0-11.0)
[2019-02-09 06:44] LABS: ALBUMIN 2.5 g/dL (3.4-5.0); CALCIUM 8.2 mg/dL (8.5-10.1); CREATININE 0.9 mg/dL (0.6-1.0); POTASSIUM 3.5 mmol/L (3.5-5.1); TOTAL BILIRUBIN 0.2 mg/dL (0.2-1.0); TOTAL PROTEIN 5.1 g/dL (6.4-8.2)
[2019-02-09] MEDS: metOLazone 5 MG TABLET PO SCH (08:05)
[2019-02-09] MEDS: BACLOFEN 20 MG TABLET PO SCH ×3 (08:06→20:23)
[2019-02-09] MEDS: TOPIRAMATE 25 MG TABLET. PO SCH ×2 (08:06→20:22)
[2019-02-09] MEDS: GABAPENTIN 100 MG CAPSULE. PO SCH ×3 (08:06→20:22)
[2019-02-09] MEDS: ASCORBIC ACID 500 MG TABLET PO SCH ×3 (08:06→20:22)
[2019-02-09] MEDS: PANTOPRAZOLE 40 MG TABLET. PO SCH (08:06)
[2019-02-09] MEDS: ASPIRIN 325 MG TABLET PO SCH ×2 (08:06→20:21)
[2019-02-09] MEDS: DULoxetine HCL 60 MG CAPSULE.DR PO SCH ×2 (08:07→20:22)
[2019-02-09] MEDS: POTASSIUM CHLORIDE 20 MEQ TABLET.ER. PO SCH ×4 (08:07→20:23)
[2019-02-09] MEDS: MULTIVITAMIN with MINERAL TABLET. PO SCH (08:07)
[2019-02-09] MEDS: FLUDROCORTISONE 0.1 MG TABLET PO SCH ×2 (08:07→20:27)
[2019-02-09] MEDS: HYDROCORTISONE 10 MG TABLET PO SCH ×2 (08:08→20:23)
[2019-02-09] MEDS: LIDOCAINE (700MG/PATCH) PATCH. TD SCH ×2 (08:11→08:52)
[2019-02-09] MEDS: ONDANSETRON PF 4 MG/2 ML VIAL. IV PRN (11:09)
[2019-02-09 11:13] VITALS: BP 90/62
[2019-02-09 16:45] VITALS: BP 90/62
[2019-02-09] MEDS: FAMOTIDINE 20 MG TABLET PO SCH (17:17)
[2019-02-09 19:30] VITALS: BP 81/47
[2019-02-09] MEDS: MIRTAZAPINE 30 MG TABLET PO SCH (20:22)
[2019-02-09] MEDS: traZODone 100 MG TABLET. PO SCH (20:23)
[2019-02-09] MEDS: PATCH REMOVAL. MC SCH (20:27)
--- NOTE | 2019-02-09 21:03 | PN ---
DATE: 02/09/2019 SUBJECTIVE: The patient is resting flat comfortably, in no apparent distress. Her lab work remains stable. Her H and H, white cell count and platelets are within acceptable range. Her potassium is up from 2.2 to 3.5. She has worked with Physical Therapy and apparently it was recommended that she be discharged to a rehab center for further strengthening before she can go home. OBJECTIVE: GENERAL: On examining him this evening, she looked pale, but no jaundice, cyanosis or thyromegaly. No jugular venous distention. No lower limb edema. VITAL SIGNS: Her heart rate was 79, blood pressure was 90/60, temperature was 97.7, respiratory rate was 18 and oxygen saturation was 95% on 2 liters of oxygen. The rest of clinical examination is stable. Her intake over the last 24 hours was 1200, output was 1550. LABORATORY DATA: Her lab work this morning showed a serum sodium 142, potassium 3.5, chloride 107, bicarbonate 31, anion gap of 4, BUN 14, creatinine 0.9, estimated GFR was 68 mL per minute. Her glucose was 99, calcium was 8.2. Her total bilirubin, AST, ALT, alkaline phosphatase were normal. Total protein was 5.1, albumin was 2.5. So far her blood cultures are negative. ASSESSMENT: 1. Severe hypokalemia, resolved. Potassium is up to 3.5. 2. Generalized weakness, improving, has worked with Physical Therapy. 3. She has also acute kidney injury. Her creatinine was 1.5, down to 0.9 this morning. 4. Other medical problems include bronchial asthma/chronic obstructive pulmonary disease, hypertension, in fact, the patient is borderline hypotensive, lumbar spinal stenosis, gastroparesis, renal insufficiency and she has history of pulmonary embolism, hiatal hernia, kidney stones, foot drop, anxiety, depression and tobacco use. PLAN: We will repeat her lab work tomorrow, continue with potassium supplementation and we will consult our gearcase assembler to see whether she qualifies to go to a rehab center. UMESH HOLCOMB MD DR: RONALD/shayna JOB#: [id number] / [id number]
[2019-02-10] MEDS: ACETAMINOPHEN/CODEINE 300/30MG TABLET PO PRN ×3 (00:21→13:20)
[2019-02-10 00:32] VITALS: BP 93/57
[2019-02-10 03:18] VITALS: BP 90/52
[2019-02-10 06:23] LABS: HEMATOCRIT 28.4 % (36.0-47.0); HEMOGLOBIN 9.2 g/dL (12.0-15.5); RED BLOOD COUNT 2.79 x10^6/uL (3.50-5.40); RED CELL DISTRIBUTION WIDTH 15.5 % (11.5-14.5); WHITE BLOOD COUNT 8.6 x10^3/uL (4.0-11.0)
[2019-02-10 06:43] LABS: ALBUMIN 2.5 g/dL (3.4-5.0); CALCIUM 8.3 mg/dL (8.5-10.1); CREATININE 0.8 mg/dL (0.6-1.0); GFR 77.9; POTASSIUM 3.3 mmol/L (3.5-5.1); TOTAL BILIRUBIN 0.2 mg/dL (0.2-1.0); TOTAL PROTEIN 5.1 g/dL (6.4-8.2)
[2019-02-10 07:17] VITALS: BP 95/55
[2019-02-10] MEDS: HYDROCORTISONE 10 MG TABLET PO SCH (08:30)
[2019-02-10] MEDS: LIDOCAINE (700MG/PATCH) PATCH. TD SCH (08:30)
[2019-02-10] MEDS: FLUDROCORTISONE 0.1 MG TABLET PO SCH (08:30)
[2019-02-10] MEDS: DULoxetine HCL 60 MG CAPSULE.DR PO SCH (08:31)
[2019-02-10] MEDS: POTASSIUM CHLORIDE 20 MEQ TABLET.ER. PO SCH (08:31)
[2019-02-10] MEDS: MULTIVITAMIN with MINERAL TABLET. PO SCH (08:31)
[2019-02-10] MEDS: ASPIRIN 325 MG TABLET PO SCH (08:31)
[2019-02-10] MEDS: metOLazone 5 MG TABLET PO SCH (08:31)
[2019-02-10] MEDS: GABAPENTIN 100 MG CAPSULE. PO SCH (08:31)
[2019-02-10] MEDS: BACLOFEN 20 MG TABLET PO SCH (08:32)
[2019-02-10] MEDS: TOPIRAMATE 25 MG TABLET. PO SCH (08:32)
[2019-02-10] MEDS: PANTOPRAZOLE 40 MG TABLET. PO SCH (08:32)
[2019-02-10] MEDS: ASCORBIC ACID 500 MG TABLET PO SCH (08:32)
[2019-02-10 11:29] VITALS: BP 94/53
[2019-02-10] MEDS ORDERED: POTA20TA4 PO (14:02)
--- NOTE | 2019-02-10 14:05 | DISCH ---
HOME HEALTH DISCHARGE/MEDS DISCHARGE INFORMATION: Discharge Date: Feb 10, 2019 Final Diagnosis: Problems Medical Problems: (1) Diarrhea Status: Acute (2) Hypokalemia Status: Acute (3) Renal insufficiency Status: Acute Condition on Discharge: Stable CODE STATUS: Code Status: Full HOME HEALTH: Face to Face: I certify this patient is under my care and that I, or a nurse practitioner or physician's lens assistant working with me, had a face to face encounter that meets the physician face to face encounter requirements with this patient on 02/10/2019 Medical Condition(s): Other Longterm For: Admin/Educate Injections Physical Therapy For: Evalulation/Treatment Occupational Therapy For: Evaluation/Treatment Homebound Status Met By: Extreme weakness w/ amb. POST DISCHARGE ORDERS: Activity Instructions for Disc: Activity as tolerated DIET AFTER DISCHARGE: Regular TREATMENT/EQUIPMENT ORDERS: Adaptive Equipment Issued: Shaq CERTIFICATION STATEMENT: Certification Statement: Based on the above finding, I certify that this patient is confined to the home and needs intermittent fpc care, physical therapy and/or speech therapy, or continues to need occupational therapy.~ This patient is under my care, and I have initiated the establishment of the plan of care.~ This patient will be followed by myself or a community physician who will periodically review the plan of care. DISCHARGE MEDICATIONS: Home Meds Active Scripts Potassium Chloride (KLOR-CON M20) 20 Meq Tab.er.prt, 2 TAB PO TID for hypokalemia for 30 Days, #180 TAB 3 Refills Prov:UMESH HOLCOMB MD 02/10/19 Reported Medications Metolazone (METOLAZONE) 5 Mg Tablet, 5 MG PO DAILY for diuretic, TAB 01/20/19 Cranberry Extract/Vit C (AZO CRANBERRY SOFTGEL) 1 Each Capsule, 1 EACH PO TID for supplement, CAP 01/20/19 Acetaminophen With Codeine (TYLENOL WITH CODEINE #3 TABLET) 1 Each Tablet, 2 TAB PO PRN Q6HRS PRN for PAIN, #30 TAB 01/20/19 Melatonin (MELATONIN) 3 Mg Tablet, 5-10 MG PO QHS for insomnia, TAB 01/20/19 Aspirin (ASPIRIN) 325 Mg Tablet, 325 MG PO BID for heart health, TAB 01/20/19 Hydrocortisone (HYDROCORTISONE) 5 Mg Tablet, 20 MG PO BID for COPD 01/20/19 Guaifenesin (MUCINEX) 600 Mg Tablet.er, 1 TAB PO BID for MUCOUS 10/10/18 Ascorbic Acid (ASCORBIC ACID) 500 Mg Tablet, 500 MG PO TID for SUPPLEMENT 10/10/18 Mirtazapine (MIRTAZAPINE) 30 Mg Tablet, 1 TAB PO QHS for MOOD DISORDER 10/10/18 Trazodone Hcl (TRAZODONE HCL) 100 Mg Tablet, 1 TAB PO QHS for SLEEP AID 10/10/18 Pantoprazole Sodium (PANTOPRAZOLE SODIUM) 40 Mg Tablet.dr, 1 TAB PO DAILYAC for HEARTBURN 10/10/18 Duloxetine Hcl (CYMBALTA) 60 Mg Capsule.dr, 1 CAP PO BID for PAIN 10/10/18 Fludrocortisone Acetate (FLUDROCORTISONE ACETATE) 0.1 Mg Tablet, 3 TAB PO BID for SUPPLEMENT 10/10/18 Gabapentin (GABAPENTIN ) 100 Mg Capsule, 100 MG PO TID for NERVE PAIN 10/10/18 Ranitidine Hcl (RANITIDINE HCL) 300 Mg Capsule, 1 CAP PO QEVNG for HEARTBURN 10/10/18 Cyanocobalamin (Vitamin B-12) (CYANOCOBALAMIN INJECTION) 1,000 Mcg/1 Ml Vial, 1 ML IM [id number] for SUPPLEMENT 10/10/18 Spironolactone (SPIRONOLACTONE) 25 Mg Tablet, 1 TAB PO [id number] for FLUID RETENTION 10/10/18 Multivitamin (MULTIVITAMINS) 1 Each Tablet, 1 TAB PO BID for SUPPLEMENT 10/10/18 Baclofen (BACLOFEN) 20 Mg Tablet, 1 TAB PO TID for MUSCLE SPASMS 10/10/18 Topiramate (TOPIRAMATE) 50 Mg Tablet, 1 TAB PO BID for MIGRAINES 10/10/18 Discontinued Reported Medications Acetaminophen With Codeine (TYLENOL WITH CODEINE #3 TABLET) 1 Each Tablet, 2 TAB PO Q6HRS PRN for PAIN, #30 TAB 01/20/19 Potassium Chloride (KLOR-CON M20) 20 Meq Tab.er.prt, 60 MEQ PO QHS for supplement, TAB.SR 01/20/19 Potassium Chloride (KLOR-CON M20) 20 Meq Tab.er.prt, 40 MEQ PO DAILY for supplem ent, TAB.SR 01/20/19 Discontinued Scripts Cefepime Hcl/Dextrose, Iso-Osm (CEFEPIME 1 GM INJECTION) 1 Gm/50 Ml Froz.piggy, 1 GM IV DAILY for UTI for 7 Days, #7 EACH Prov:UMESH HOLCOMB MD 01/24/19 UMESH HOLCOMB MD Feb 10, 2019 14:05
[2019-02-10 14:24] VITALS: BP 100/66
--- NOTE | 2019-02-10 23:11 | DS ---
DATE OF DISCHARGE: 02/10/2019 HOSPITAL COURSE: The patient is a 43-year-old female patient who came yet again with another episode of acute kidney injury and hypokalemia. Potassium was extremely low on arrival, was only 2.2 mEq per liter. Her creatinine was also high at 1.5. She is known to have Charles's disease and she is on hydrocortisone 20 mg twice a day, however, she is on fludrocortisone 300 mcg twice a day. She is also on metolazone 5 mg. She takes 40 ____ of potassium in the morning and 60 ____ in the evening. She is also on spironolactone 25 mg twice a day. I have had a lengthy discussion with the patient and I recommended that she should follow with her primary care physician. He is the one who is adjusting her medication as she is on extremely high dose of fludrocortisone together with metolazone because of her severe episodes of hypokalemia. Again on her last visit here, her potassium was again low at around 2.2 mEq per liter and again when she was here on 01/19/2019, so I did increase her potassium to 40 mEq 3 times a day, continued the spironolactone; however, she continued also with her fludrocortisone and metolazone, which probably mean that she will have hypokalemia unless she has fludrocortisone cut down. I also discharged her on home health with nursing staff to check her BMP at least twice a week and to inform Dr. Castañeda, her primary care physician about the results of her electrolytes. PHYSICAL EXAMINATION: GENERAL: When I saw her this afternoon, she was resting slightly propped up in bed, in no apparent respiratory distress. No pallor, jaundice, cyanosis or thyromegaly. No jugular venous distention. No limb edema. VITAL SIGNS: Her heart rate was 72, blood pressure was 94/52, temperature was 98, respiratory rate was 16, and oxygen saturation was 99% on 2 liters of oxygen. HEAD, EYES, EARS, NOSE AND THROAT: Showed normocephalic, atraumatic. NECK: Supple. HEART: Showed normal first and second heart sounds. No gallop or murmur. CHEST: Clear to auscultation. No crepitation or rhonchi. ABDOMEN: Distended, soft, nontender. No guarding or rigidity. No organomegaly. All hernial orifice intact. Bowel sounds normal. NEUROLOGIC: She is awake, alert, responding appropriately. All cranial nerves intact. She ambulates with a walker. LABORATORY DATA: Her lab work this morning showed a white cell count of 8600, hemoglobin 9, hematocrit 28, MCV 102 and platelet count of 195,000. Her chemistry this morning showed a serum sodium 142, potassium 3.3, chloride 108, bicarbonate 29, anion gap of 5, BUN 11, creatinine 0.8, estimated GFR was 77 mL per minute. Her glucose was 82, calcium was 8.3. Total bilirubin, AST, ALT, alkaline phosphatase were normal. Total protein was 5.1, albumin was 2.5. Her prothrombin time and INR were normal. Urinalysis was normal. Toxic screen was negative. Her urine culture has isolated only yeast but greater than 100,000 colony forming unit; however, her blood cultures are negative after 2 days. I will discharge her with Diflucan 100 mg once a day for 7 days. DISCHARGE MEDICATIONS: She will be discharged home to continue on potassium chloride 40 mEq 3 times a day, Tylenol with Codeine 2 tablets every 6 hours, ascorbic acid 500 mg 3 times a day, aspirin 325 mg should be once a day, baclofen 20 mg 3 times a day, cranberry extract with vitamin C 1 tablet 3 times a day, cyanocobalamin 1000 mcg/mL injection every 2 weeks, duloxetine for Cymbalta 60 mg twice a day, fludrocortisone 300 mcg twice a day, gabapentin 100 mg 3 times a day, Mucinex 600 mg twice a day, hydrocortisone 20 mg twice a day, melatonin 5-10 mg at bedtime, metolazone 5 mg daily, mirtazapine 30 mg at bedtime, multivitamin 1 tablet twice a day, Protonix 40 mg daily, ranitidine 300 mg every evening, spironolactone 25 mg twice a day, topiramate 50 mg twice a day, and trazodone 100 mg at bedtime. FINAL DISCHARGE DIAGNOSES: 1. Severe hypokalemia, resolved. 2. Acute kidney injury, resolved. Her creatinine came down from 1.5 to 0.8. 3. Other medical problems include Jasper's disease. 4. Bronchial asthma/chronic obstructive pulmonary disease. 5. Gastroparesis. 6. Lumbar spinal stenosis. 7. Hiatal hernia. 8. Kidney stones. 9. Foot drop. 10. Anxiety and depression. 11. ____. 12. Tobacco use disorder. UMESH HOLCOMB MD DR: RONALD/shayna JOB#: [id number] / [id number]
[2019-02-21] MEDS ORDERED: CYANOCOBALAMIN (VITAMIN B-12) 1,000 MCG/ML VIAL IM SCH (09:00)
== END 2019-02-10 15:04 | disposition home or self-care (01) | DRG 682 ==
LOC: ER 14:52 → 1 SOUTH 16:50
PROVIDERS: ADMIT Internal Medicine; ATTEND Internal Medicine
DX: N17.0 Acute kidney failure with tubular necrosis (principal); E43 Unspecified severe protein-calorie malnutrition; E27.1 Primary adrenocortical insufficiency; I69.354 Hemiplegia and hemiparesis following cerebral infarction affecting left non-dominant side; E87.6 Hypokalemia; J44.9 Chronic obstructive pulmonary disease, unspecified; F17.210 Nicotine dependence, cigarettes, uncomplicated; F32.9 Major depressive disorder, single episode, unspecified; F41.9 Anxiety disorder, unspecified; I11.0 Hypertensive heart disease with heart failure; I50.9 Heart failure, unspecified; K44.9 Diaphragmatic hernia without obstruction or gangrene; K31.84 Gastroparesis; M21.379 Foot drop, unspecified foot; M48.061 Spinal stenosis, lumbar region without neurogenic claudication; N20.0 Calculus of kidney; R29.6 Repeated falls; Z79.899 Other long term (current) drug therapy; Z82.49 Family history of ischemic heart disease and other diseases of the circulatory system; Z86.14 Personal history of Methicillin resistant Staphylococcus aureus infection; Z86.711 Personal history of pulmonary embolism; Z87.442 Personal history of urinary calculi; Z90.710 Acquired absence of both cervix and uterus; Z99.81 Dependence on supplemental oxygen; Z86.19 Personal history of other infectious and parasitic diseases; Z83.3 Family history of diabetes mellitus; Z68.36 Body mass index [BMI] 36.0-36.9, adult
CPT/HCPCS: 36415; 71046; 73030; 80048; 80053; 80307; 81001; 82803; 83605; 83735; 83880; 84484; 85025; 85027; 85610; 87040; 87086; 93005; 99406; J2405; J3480; 97110; 97530; 99285-25

== ENCOUNTER → 2019-02-16 | Outpatient (CLI) | payer OTHER, MEDICAID ==
[2019-02-10 14:24] VITALS: BP 100/66
[~2019-02-16] MED LIST changes: +PHEN-318 PO
--- NOTE | 2019-02-16 16:19 | RAD ---
Chest, PA and Lateral: Technique: PA and lateral views of the chest were obtained. History: Cough. Comparison: 02/07/2019. Findings: The heart and pulmonary vasculature appear within normal limits. Right-sided Port-A-Cath is identified.. The pleural margins are clear. Impression: No acute chest process is seen. Electronically signed by: Bert Gregg MD (02/16/2019 4:16 PM) [facility]
== END | disposition home or self-care (01) ==
LOC: DXRAD 13:18
PROVIDERS: ATTEND Family Medicine
DX: R05 Cough (principal); Z95.9 Presence of cardiac and vascular implant and graft, unspecified
CPT/HCPCS: 71046

== ENCOUNTER 2019-02-17 17:53 | Inpatient (IN) | payer OTHER, MEDICAID ==
[~2019-02-17] VITALS: Ht 152.4 cm; Wt 88.6 kg
[~2019-02-17 17:53] MED LIST changes: -MELA3TAB2 PO; +MELA3TAB56 PO; -PHEN-318 PO
--- NOTE | 2019-02-17 18:05 | ED.ADGEN ---
Past History Past Medical History: Asthma, CHF, COPD, DVT, Hypertension, Kidney Stones, MRSA, UTI, Other Additional Past Medical Histor: adrenal insufficiency, spinal stenosis, pulmonary embolism Past Surgical History: Cholecystectomy, Hysterectomy, Tonsillectomy, Other Additional Past Surgical Histo: gastrectomy, ventral hernia repair Alcohol Use: None Drug Use: None Adult General Chief Complaint Chief Complaint " ...I was called .. and they said to go to ED for my low potassium..." HPI HPI Patient is a 43year old female who presents with above hx and complaints noted abnormal labs and a very low potassium on her last visit to Dr. Castañeda. Patient states she's had trouble with low potassiums the last several months. Patient also has complaints of dysuria and generalized weakness. No recent change in meds. No recent travel. Does take diuretics for history of CHF. Patient normally follows with Dr. Castañeda. Review of Systems Review of Systems Constitutional: Denies fever or chills [] Eyes: Denies change in visual acuity, redness, or eye pain [] HENT: Denies nasal congestion or sore throat [] Respiratory: Denies cough or shortness of breath [] Cardiovascular: No additional information not addressed in HPI [] GI: Denies abdominal pain, nausea, vomiting, bloody stools or diarrhea [] : Denies dysuria or hematuria [] Musculoskeletal: Complaints of generalized weakness Integument: Denies rash or skin lesions [] Neurologic: Denies headache, focal weakness or sensory changes [] Endocrine: Denies polyuria or polydipsia [] All other systems were reviewed and found to be within normal limits, except as documented in this note. Family History Family History Noncontributory Current Medications Current Medications Current Medications Medications (Trade) Dose Ordered Sig/Mani Start Time Stop Time Status Last Admin Dose Admin Acetaminophen (Tylenol) 650 mg PRN Q4HRS PRN 02/17/19 22:00 02/18/19 21:59 Ceftriaxone Sodium 1 gm/ Sodium Chloride 50 ml @ 100 mls/hr 1X ONCE 02/17/19 22:00 02/17/19 22:29 DC 02/17/19 22:09 100 MLS/HR Lactated Ringer's 1,000 ml @ 160 mls/hr 1X ONCE 02/17/19 21:15 02/18/19 03:29 DC 02/17/19 22:09 160 MLS/HR Ondansetron HCl (Zofran) 4 mg PRN Q4HRS PRN 02/17/19 22:00 02/18/19 21:59 02/17/19 23:54 4 MG Potassium Chloride 100 ml @ 50 mls/hr Q2H 02/17/19 22:00 02/18/19 01:59 DC 02/18/19 00:42 50 MLS/HR Allergies Allergies Allergies Coded Allergies Type Severity Reaction Last Updated Verified Sulfa (Sulfonamide Antibiotics) Allergy Intermediate 10/11/18 Yes citric acid Allergy Intermediate 10/11/18 Yes shellfish derived Allergy Intermediate 10/11/18 Yes I S O L A T I O N *CONTACT* Allergy Unknown 10/11/18 Yes Physical Exam Physical Exam Constitutional: Moderate acute distress, non-toxic appearance. [] HENT: Normocephalic, atraumatic, bilateral external ears normal, oropharynx moist, no oral exudates, nose normal. [] Eyes: PERRLA, EOMI, conjunctiva normal, no discharge. [] Neck: Normal range of motion, no tenderness, supple, no stridor. [] Cardiovascular:Heart rate regular rhythm, no murmur []PMI to the left Lungs & Thorax: Bilateral breath sounds equal apex on auscultation []port Abdomen: Bowel sounds normal, soft, no tenderness, no masses, no pulsatile masses. [] Old surgery scars. Skin: Warm, dry, no erythema, no rash. [] Back: No tenderness, no CVA tenderness. [] Extremities: No tenderness, no cyanosis, no clubbing, ROM intact, ankle edema. Generalized weakness Neurologic: Alert and oriented X 3, moves all extremities on request. Has distal sensory, no focal deficits noted. [] Psychologic: Affect anxious, judgement normal, mood normal. [] Current Patient Data Vital Signs Vital Signs Date Time Temp Pulse Resp B/P (MAP) Pulse Ox O2 Delivery O2 Flow Rate FiO2 02/17/19 21:04 74 18 94/54 (67) 92 Nasal Cannula 2.0 02/17/19 18:10 98.6 Lab Results Laboratory Tests Test 02/17/19 19:12 02/17/19 19:40 White Blood Count 12.1 x10^3/uL (4.0-11.0) H Red Blood Count 2.82 x10^6/uL (3.50-5.40) L Hemoglobin 8.9 g/dL (12.0-15.5) L Hematocrit 28.0 % (36.0-47.0) L Mean Corpuscular Volume 99 fL (79-100) Mean Corpuscular Hemoglobin 32 pg (25-35) Mean Corpuscular Hemoglobin Concent 32 g/dL (31-37) Red Cell Distribution Width 15.9 % (11.5-14.5) H Platelet Count 231 x10^3/uL (140-400) Neutrophils (%) (Auto) 76 % (31-73) H Lymphocytes (%) (Auto) 17 % (24-48) L Monocytes (%) (Auto) 5 % (0-9) Eosinophils (%) (Auto) 1 % (0-3) Basophils (%) (Auto) 1 % (0-3) Neutrophils # (Auto) 9.2 x10^3uL (1.8-7.7) H Lymphocytes # (Auto) 2.0 x10^3/uL (1.0-4.8) Monocytes # (Auto) 0.6 x10^3/uL (0.0-1.1) Eosinophils # (Auto) 0.2 x10^3/uL (0.0-0.7) Basophils # (Auto) 0.1 x10^3/uL (0.0-0.2) Prothrombin Time 9.8 SEC (9.4-11.4) Prothrombin Time INR 0.9 (0.9-1.1) Activated Partial Thromboplast Time 27 SEC (23-33) D-Dimer (Ellyn) 0.26 mg/L (0.00-0.50) Sodium Level 141 mmol/L (136-145) Potassium Level 2.2 mmol/L (3.5-5.1) *L Chloride Level 100 mmol/L (98-107) Carbon Dioxide Level 36 mmol/L (21-32) H Anion Gap 5 (6-14) L Blood Urea Nitrogen 39 mg/dL (7-20) H Creatinine 1.8 mg/dL (0.6-1.0) H Estimated GFR (Cockcroft-Gault) 30.6 Glucose Level 111 mg/dL (70-99) H Calcium Level 8.2 mg/dL (8.5-10.1) L Magnesium Level 2.0 mg/dL (1.8-2.4) Total Bilirubin 0.3 mg/dL (0.2-1.0) Direct Bilirubin 0.1 mg/dL (0.0-0.2) Aspartate Amino Transferase (AST) 14 U/L (15-37) L Alanine Aminotransferase (ALT) 16 U/L (14-59) Alkaline Phosphatase 83 U/L (46-116) Troponin I Quantitative < 0.017 ng/mL (0-0.055) Total Protein 6.1 g/dL (6.4-8.2) L Albumin 3.2 g/dL (3.4-5.0) L Urine Collection Type Unknown Urine Color Paulina Urine Clarity Hazy Urine pH 5.0 Urine Specific [place] <=1.005 Urine Protein Neg (NEG-TRACE) Urine Glucose (UA) 100 mg/dL (NEG) Urine Ketones (Stick) Neg mg/dL (NEG) Urine Blood Small (NEG) Urine Nitrite Pos (NEG) Urine Bilirubin Neg (NEG) Urine Urobilinogen Dipstick 0.2 mg/dL (0.2 mg/dL) Urine Leukocyte Esterase Trace (NEG) Urine RBC 20-40 /HPF (0-2) Urine WBC 5-10 /HPF (0-4) Urine Squamous Epithelial Cells Few /LPF Urine Bacteria Few /HPF (0-FEW) EKG EKG I interpretation of EKG shows a sinus rhythm at 89 bpm. Left axis. Has prolonged QT interval at 396 ms and a QTC of 483 ms no findings acute STEMI[] Radiology/Procedures Radiology/Procedures [ Reviewed prior CXR ][address] [address] IMAGING REPORT Signed PATIENT: ROSAGNELA FLORENCE ACCOUNT: [id number] : 1975 LOCATION: [facility] AGE: 43 SEX: F EXAM STATUS: REG CLI ORD. PHYSICIAN: GABRIEL CASTAÑEDA MD REASON: COUGH PROCEDURE: CHEST PA & LATERAL Chest, PA and Lateral: Technique: PA and lateral views of the chest were obtained. History: Cough. Comparison: 02/07/2019. Findings: The heart and pulmonary vasculature appear within normal limits. Right-sided Port-A-Cath is identified.. The pleural margins are clear. Impression: No acute chest process is seen. Electronically signed by: Bert Gregg MD (02/16/2019 4:16 PM) [place] [id number] DICTATED AND SIGNED BY: BERT GREGG MD DATE: 02/16/19 1616 CC: GABRIEL CASTAÑEDA MD ~ Course & Med Decision Making Course & Med Decision Making Pertinent Labs and Imaging studies reviewed. (See chart for details) Patient admitted to for further eval and tx. [] Final Impression Final Impression 1. Hypokalemia 2.2 critical 2. Anemia with hemoglobin 8.9 3. Leukocytosis 12.1 4. Elevated BUN/creatinine 39/1.8 5. Diabetes 6. Malnutrition albumin 3.2 7. Urinary tract infection[] Dragon Disclaimer Dragon Disclaimer This electronic medical record was generated, in whole or in part, using a voice recognition dictation system. Dragon Disclaimer This chart was dictated in whole or in part using Voice Recognition software in a busy, high-work load, and often noisy Emergency Department environment. It may contain unintended and wholly unrecognized errors or omissions. Dragon Disclaimer This chart was dictated in whole or in part using Voice Recognition software in a busy, high-work load, and often noisy Emergency Department environment. It may contain unintended and wholly unrecognized errors or omissions. ANTONELLA DUNNE MD Feb 17, 2019 18:05
--- NOTE | 2019-02-17 18:40 | EKG ---
[address] [address] Test Date: 2019-02-17 Test Time: 18:40:20 Pat Name: ROSANGELA FLORENCE Department: Room: Gender: F Planogrammer: : 1975 Requested By: ANTONELLA DUNNE Order Number: [id number] Reading MD: Measurements Intervals [place] Rate: 89 P: 31 TN: 130 QRS: -4 QRSD: 88 T: 38 QT: 396 QTc: 483 Interpretive Statements SINUS RHYTHM LEFTWARD AXIS PROLONGED QT NO SPECIFIC ECG ABNORMALITIES RI6.01 Compared to ECG 02/07/2019 15:21:37 Prolonged QT interval now present
[2019-02-17 19:37] LABS: BASO # 0.1 x10^3/uL (0.0-0.2); BASO % 1 % (0-3); EOS # 0.2 x10^3/uL (0.0-0.7); EOS % 1 % (0-3); HEMOGLOBIN 8.9 g/dL (12.0-15.5); LYMPH % 17 % (24-48); MEAN CORPUSCULAR HEMOGLOBIN 32 pg (25-35); MEAN CORPUSCULAR HGB CONC 32 g/dL (31-37); MEAN CORPUSCULAR VOLUME 99 fL (79-100); MONO # 0.6 x10^3/uL (0.0-1.1); MONO % 5 % (0-9); NEUT # 9.2 x10^3uL (1.8-7.7); NEUT % 76 % (31-73); PLATELET COUNT 231 x10^3/uL (140-400); RED BLOOD COUNT 2.82 x10^6/uL (3.50-5.40); RED CELL DISTRIBUTION WIDTH 15.9 % (11.5-14.5); WHITE BLOOD COUNT 12.1 x10^3/uL (4.0-11.0)
[2019-02-17 19:49] LABS: ALBUMIN 3.2 g/dL (3.4-5.0); CALCIUM 8.2 mg/dL (8.5-10.1); CREATININE 1.8 mg/dL (0.6-1.0); DIRECT BILIRUBIN 0.1 mg/dL (0.0-0.2); GFR 30.6; TOTAL BILIRUBIN 0.3 mg/dL (0.2-1.0); TOTAL PROTEIN 6.1 g/dL (6.4-8.2)
[2019-02-17] MEDS: IV RINGERS SOLUTION,LACTATED 1,000 ML IV SCH (19:50)
[2019-02-17 19:52] LABS: POTASSIUM 2.2 mmol/L (3.5-5.1)
[2019-02-17 20:46] LABS: BILIRUBIN,URINE NEG (NEG); CLARITY,URINE HAZY; GLUCOSE,URINE 100 mg/dL (NEG); NITRITE,URINE POS (NEG); UROBILINOGEN,URINE 0.2 mg/dL (0.2 mg/dL)
[2019-02-17 20:47] LABS: BACTERIA,URINE FEW /HPF (0-FEW); RBC,URINE 20-40 /HPF (0-2); SQUAMOUS EPITHELIAL CELL,UR FEW /LPF
[2019-02-17 20:48] LABS: COLOR,URINE AMBER
[2019-02-17] MEDS ORDERED: IV RINGERS SOLUTION,LACTATED 1,000 ML IV ONE (21:15)
[2019-02-17] MEDS ORDERED: ACETAMINOPHEN 325 MG TABLET PO PRN (22:00)
[2019-02-17] MEDS: POTASSIUM CHLORIDE 20MEQ 100 ML IV SCH ×2 (22:08→23:15)
[2019-02-17] MEDS ORDERED: cefTRIAXone SODIUM 1 GM VIAL ONE (22:09)
[2019-02-17 23:39] VITALS: BP 98/66
--- NOTE | 2019-02-17 23:40 | NUR ---
The patient, ROSANGELA FLORENCE, 43 y/o, F admitted by SCHUYLER HINES MD, was given written information regarding hospital policies, unit procedures and contact persons. Valuables were checked and logged. Call light at bedside. Will continue to monitor.
[2019-02-17] MEDS: ONDANSETRON PF 4 MG/2 ML VIAL. IV PRN (23:54)
[2019-02-18] MEDS ORDERED: PHEN-318 PO (00:05)
[2019-02-18] MEDS: POTASSIUM CHLORIDE 20 MEQ TABLET.ER. PO SCH ×4 (00:40→21:35)
[2019-02-18] MEDS: PHENAZOPYRIDINE 200 MG TABLET. PO SCH ×4 (00:40→21:32)
[2019-02-18] MEDS: MELATONIN 3 MG TABLET PO SCH ×2 (00:40→21:36)
[2019-02-18] MEDS: DULoxetine HCL 60 MG CAPSULE.DR PO SCH ×3 (00:40→21:36)
[2019-02-18] MEDS: ASCORBIC ACID 500 MG TABLET PO SCH ×4 (00:40→21:36)
[2019-02-18] MEDS: MULTIVITAMIN with MINERAL TABLET. PO SCH ×3 (00:41→21:36)
[2019-02-18] MEDS: BACLOFEN 20 MG TABLET PO SCH ×4 (00:41→21:36)
[2019-02-18] MEDS: POTASSIUM CHLORIDE 20MEQ 100 ML IV SCH ×2 (00:41)
[2019-02-18] MEDS: ASPIRIN 325 MG TABLET PO SCH ×3 (00:41→21:36)
[2019-02-18] MEDS: HYDROCORTISONE 10 MG TABLET PO SCH ×3 (00:41→21:35)
[2019-02-18] MEDS: TOPIRAMATE 25 MG TABLET. PO SCH ×3 (00:41→21:36)
[2019-02-18] MEDS: MORPHINE SULFATE 4 MG/ML DISP.SYRIN. IV PRN ×2 (00:42→06:03)
[2019-02-18] MEDS ORDERED: MAGNESIUM SULFATE 1GM 100 ML IV ONE (01:00)
[2019-02-18] MEDS ORDERED: MIRTAZAPINE 30 MG TABLET PO SCH (01:00)
[2019-02-18] MEDS ORDERED: traZODone 100 MG TABLET. PO SCH (01:00)
[2019-02-18] MEDS ORDERED: GABAPENTIN 100 MG CAPSULE. PO SCH (01:00)
[2019-02-18] MEDS: IV RINGERS SOLUTION,LACTATED 1,000 ML IV SCH (03:57)
[2019-02-18 05:34] VITALS: BP 107/66
[2019-02-18 06:44] LABS: ALBUMIN 2.7 g/dL (3.4-5.0); CALCIUM 8.4 mg/dL (8.5-10.1); CREATININE 1.2 mg/dL (0.6-1.0); GFR 48.8; TOTAL BILIRUBIN 0.3 mg/dL (0.2-1.0); TOTAL PROTEIN 5.5 g/dL (6.4-8.2)
[2019-02-18 06:45] LABS: BASO % 0 % (0-3); EOS # 0.2 x10^3/uL (0.0-0.7); EOS % 2 % (0-3); HEMATOCRIT 27.9 % (36.0-47.0); HEMOGLOBIN 9.2 g/dL (12.0-15.5); LYMPH # 2.2 x10^3/uL (1.0-4.8); LYMPH % 17 % (24-48); MEAN CORPUSCULAR HEMOGLOBIN 32 pg (25-35); MEAN CORPUSCULAR HGB CONC 33 g/dL (31-37); MEAN CORPUSCULAR VOLUME 98 fL (79-100); MONO # 0.5 x10^3/uL (0.0-1.1); MONO % 4 % (0-9); NEUT # 10.2 x10^3uL (1.8-7.7); NEUT % 77 % (31-73); PLATELET COUNT 227 x10^3/uL (140-400); RED BLOOD COUNT 2.85 x10^6/uL (3.50-5.40); RED CELL DISTRIBUTION WIDTH 15.8 % (11.5-14.5); WHITE BLOOD COUNT 13.2 x10^3/uL (4.0-11.0)
[2019-02-18 06:48] LABS: POTASSIUM 2.9 mmol/L (3.5-5.1)
[2019-02-18] MEDS ORDERED: POTASSIUM CHLORIDE 20 MEQ TABLET.ER. PO ONE (07:15)
--- NOTE | 2019-02-18 07:32 | RAD ---
CHEST AP ONLY Clinical Indication: CHF Comparison: 02/16/2019 two-view chest x-ray exam. Findings: Portable semiupright frontal view of the chest was obtained. Right-sided infusion port catheter tip terminates overlying the right atrium. Heart size is normal. No pneumothorax. Minimal linear atelectasis at the left lung base is evident. Left basilar discoid atelectasis is noted. Bony structures are grossly unremarkable. There are quadrant surgical clips are evident. Minimal left pleural effusion suspected. IMPRESSION: Minimal left basilar atelectasis. Minimal left pleural effusion. No definite vascular congestion. Electronically signed by: Hoang Foster MD (02/18/2019 7:29 AM) [facility]
[2019-02-18] MEDS: IPRATRPIUM/ALBUTEROL 0.5/2.5MG 3 ML NEBU. NEB SCH ×4 (08:00→19:44)
[2019-02-18] MEDS: ONDANSETRON PF 4 MG/2 ML VIAL. IV PRN ×2 (08:58→12:39)
[2019-02-18] MEDS ORDERED: CYANOCOBALAMIN (VITAMIN B-12) 1,000 MCG/ML VIAL IM SCH (09:00)
[2019-02-18] MEDS: PANTOPRAZOLE 40 MG TABLET. PO SCH (09:44)
[2019-02-18] MEDS: ACETAMINOPHEN/CODEINE 300/30MG TABLET PO PRN ×3 (09:54→23:17)
--- NOTE | 2019-02-18 10:46 | HP ---
ADMIT DATE: ATTENDING PHYSICIAN: Dr. Hines. CHIEF COMPLAINT: Low potassium and generalized weakness. HISTORY OF PRESENT ILLNESS: The patient is a 43-year-old female with multiple medical issues. She has been on diuretics including metolazone. Her potassium was 2.2 mEq drawn from her primary care doctor's office. She was sent to the ED for further treatment. She denied any chest pain or palpitations. There is no dizziness or arrhythmia. The patient was admitted, started on potassium replacement protocol. She has a remote history of congestive heart failure. No recent travel. PAST MEDICAL HISTORY: Complicated. She has had a history of COPD, DVT, hypertension, kidney stones, urinary tract infection, adrenal insufficiency, spinal stenosis, pulmonary embolism. The edema is caused by the mineralocorticoid effects of her corticosteroid therapy. She has had spinal stenosis, chronic pain syndrome. She is very depressed that she has a history of posttraumatic stress disorder. PAST SURGICAL HISTORY: Includes cholecystectomy, hysterectomy, tonsillectomy, ____ indwelling Ellis catheter and suprapubic catheter. MEDICATIONS: Current medicines are reviewed. She was taking Florinef, hydrocortisone, albuterol, vitamin C, baclofen, B12, Cymbalta, Neurontin, guaifenesin, melatonin, Remeron, ondansetron, Protonix, Pyridium, potassium, Topamax and trazodone. ALLERGIES: She has allergies to SULFA DRUGS, CITRIC ACID AND SHELLFISH. Exact etiology is unclear. SOCIAL HISTORY: Nonsmoker and nondrinker. FAMILY HISTORY: Unobtainable. REVIEW OF SYSTEMS: Significant for multiple depression, chronic back pain, generalized debilitation, no energy, sleep disorder, nausea. She denied any chest pain or palpitation. All other systems were reviewed. She has a history of neurogenic bladder and Sibley's disease, exact details are unclear. PHYSICAL EXAMINATION: GENERAL: When I saw her, this is a chronically ill-appearing female who appears older than her stated age. INITIAL VITAL SIGNS: Showed a blood pressure 107/66, pulse is 85 and regular. She was afebrile. HEENT: Head is without trauma. Pupils are reactive. Sclerae nonicteric. Oropharynx is clear. NECK: Supple, no bruits. CARDIOVASCULAR: Showed regular heart tones. She has a port in her right supraclavicular fossa. LUNGS: Otherwise clear. ABDOMEN: Soft, scaphoid, nontender, no organomegaly. Bowel sounds are hypoactive. EXTREMITIES: Show trace edema. NEUROLOGIC: Flat affect focally intact. She has an indwelling suprapubic ____. PERTINENT LABORATORY DATA: Potassium is 2.2 mEq, hemoglobin 8.9 g/dL, white count was 12,100. Sodium 141 mEq, creatinine is 1.8. Followup chemistries are pending. ASSESSMENT: 1. A 43-year-old female with hypokalemia due to her high dose diuretics. 2. Mild dehydration with extravascular volume retention. 3. ____ edema due to mineralocorticoid effects of her replacement cortisone. 4. Chronic pain syndrome. 5. Underlying depression with anxiety. 6. History of posttraumatic stress disorder. 7. Remote history of Charles's disease, on maintenance corticosteroid therapy. 8. Severe major depression. 9. Anemia of chronic disease. PLAN: 1. Admit to the inpatient unit. 2. Potassium protocol with mainly oral replacement. She was given IV potassium in the ED. 3. We have stopped her diuretics. 4. I have cut back her dosage of mineralocorticoid. 5. Simplification the home meds. 6. Diet as tolerated. 7. Serial chemistries and potassium and creatinine levels. SCHUYLER HINES MD DR: NADEEM/shayna JOB#: [id number] / [id number]
[2019-02-18 13:01] VITALS: BP 104/50
[2019-02-18] MEDS: CEPHALEXIN 250 MG CAPSULE PO SCH ×2 (13:13→21:36)
[2019-02-18] MEDS ORDERED: ONDANSETRON ODT 4 MG TAB.RAPDIS PO SCH (14:00)
--- NOTE | 2019-02-18 14:23 | NUR ---
Pt assessed per flowsheet. Dr. Gonzalez saw pt on rounds this am; see chart for details regarding orders. Pt's family here to see pt a couple of times today. Pt has not been out of bed yet. Pt has chronic subrapubic catheter because history of CVA. Pt has c/o of nausea and states she takes zofran every 4 hours at home; order changed in computer from PRN zofran to scheduled. Handed off care to EVAN Herrera at this point.
[2019-02-18] MEDS: ONDANSETRON ODT 4 MG TAB.RAPDIS PO SCH ×2 (16:43→21:36)
[2019-02-18 19:59] VITALS: BP 103/47
[2019-02-18] MEDS: LACTOBACILLUS RHAMNOSUS GG 1 CAPSULE. PO SCH (21:36)
[2019-02-19] MEDS: IPRATRPIUM/ALBUTEROL 0.5/2.5MG 3 ML NEBU. NEB SCH (05:00)
[2019-02-19] MEDS: ACETAMINOPHEN/CODEINE 300/30MG TABLET PO PRN (05:59)
[2019-02-19 06:38] VITALS: BP 105/62
[2019-02-19 06:54] LABS: ALBUMIN 2.7 g/dL (3.4-5.0); CALCIUM 8.4 mg/dL (8.5-10.1); CREATININE 1.1 mg/dL (0.6-1.0); POTASSIUM 3.4 mmol/L (3.5-5.1); TOTAL BILIRUBIN 0.2 mg/dL (0.2-1.0); TOTAL PROTEIN 5.4 g/dL (6.4-8.2)
[2019-02-19] MEDS: ASPIRIN 325 MG TABLET PO SCH (08:06)
[2019-02-19] MEDS: LACTOBACILLUS RHAMNOSUS GG 1 CAPSULE. PO SCH (08:06)
[2019-02-19] MEDS: PANTOPRAZOLE 40 MG TABLET. PO SCH (08:06)
[2019-02-19] MEDS: CEPHALEXIN 250 MG CAPSULE PO SCH (08:07)
[2019-02-19] MEDS: ONDANSETRON ODT 4 MG TAB.RAPDIS PO SCH (08:07)
[2019-02-19] MEDS: ASCORBIC ACID 500 MG TABLET PO SCH (08:07)
[2019-02-19] MEDS: POTASSIUM CHLORIDE 20 MEQ TABLET.ER. PO SCH (08:07)
[2019-02-19] MEDS: TOPIRAMATE 25 MG TABLET. PO SCH (08:07)
[2019-02-19] MEDS: PHENAZOPYRIDINE 200 MG TABLET. PO SCH (08:08)
[2019-02-19] MEDS: DULoxetine HCL 60 MG CAPSULE.DR PO SCH (08:08)
[2019-02-19] MEDS: HYDROCORTISONE 10 MG TABLET PO SCH (08:08)
[2019-02-19] MEDS: MULTIVITAMIN with MINERAL TABLET. PO SCH (08:09)
[2019-02-19] MEDS: BACLOFEN 20 MG TABLET PO SCH (08:09)
--- NOTE | 2019-02-19 09:54 | NUR ---
Went over discharge instructions with patient, patient voiced understanding. Took out IV. Gave patient a prescription for 30 Tylenol #3's and walked patient out to private vehicle with and daughter.
--- NOTE | 2019-02-19 13:44 | DS ---
DATE OF DISCHARGE: 02/19/2019 ATTENDING PHYSICIAN: Dr. Hines. FINAL DISCHARGE DIAGNOSES: 1. Symptomatic hypokalemia due to diuretics. 2. Dehydration with extravascular volume retention. 3. Peripheral edema due to mineralocorticoid effects of her replacement cortisone therapy. 4. Chronic pain syndrome. 5. Major depression with anxiety. 6. History of posttraumatic stress disorder. 7. History of Crowley's disease, on maintenance corticosteroid therapy. 8. Severe major depression. 9. Anemia of chronic disease. HISTORY AND PHYSICAL: This is a 43-year-old female with multiple medical issues. She has a documented history of Crowley's disease, currently taking replacement hydrocortisone and Florinef for her blood pressure. She had secondary pedal edema due to excess oral fluid intake. She had edema significantly of her ankle. She was given metolazone, Aldactone, potassium supplementation. She had an admission potassium 2.2 mEq. She was called by the doctor's office, was sent to the Emergency Room for further treatment and evaluation. PHYSICAL EXAMINATION: Please see the dictated note. PERTINENT LABORATORY DATA AND X-RAY STUDIES: Admission's chemistry showed potassium of 2.2 mEq, sodium 141 mEq per liter. Creatinine 1.8. Nonfasting blood sugar 111. On the next day with replacement, potassium came up to 2.9 mEq and on the third day was up to 3.4 mEq per liter. Creatinine improved to 1.1 mg/dL. Sodium was 142 mEq per liter. COURSE IN THE HOSPITAL: The patient was admitted. We held her Florinef. Her blood pressure is adequate. We continued her hydrocortisone. We gave her intravenous potassium per protocol, oral potassium as well as supplemental magnesium replacement. This is for the fact that 43% of patients with refractory hypokalemia is due to hypomagnesemia. She responded well. Potassium came up nicely. She had no further arrhythmias. We tried to limit her fluids. We held her metolazone for now. By the third hospital day, she was back to her baseline. Affect still remains quite flat with depression symptoms. Family is very concerned and I have recommended follow up with her primary care physician and announcer. Therefore, on the third hospital day, the patient's potassium was replaced. Her blood pressure was adequate, 110, systolic. She was ready for discharge. She requested a script for Tylenol No. 3. I felt this is reasonable. I explained to her I would give her a limited refill and then she would have to go to her pain physician. She is discharged home then with continuation of her hydrocortisone 20 mg twice a day, vitamin C, baclofen, Cymbalta, lactobacillus, Protonix and Topamax dose unchanged. Also, Neurontin and Remeron. I asked that she call her doctor's office for followup visit next week. Also, potassium supplementation 20 mEq 3 times a day. She was discharged then in stable condition with explicit instructions and followup care. TOTAL DISCHARGE TIME SPENT: 39 minutes. SCHUYLER HINES MD DR: NADEEM/shayna JOB#: [id number] / [id number]
== END 2019-02-19 09:56 | disposition home or self-care (01) | DRG 641 ==
LOC: ER 17:53 → ICU 22:00
PROVIDERS: ADMIT Hospitalist; ATTEND Hospitalist
DX: E87.6 Hypokalemia (principal); E27.1 Primary adrenocortical insufficiency; D63.8 Anemia in other chronic diseases classified elsewhere; E83.42 Hypomagnesemia; E86.0 Dehydration; F41.8 Other specified anxiety disorders; F43.10 Post-traumatic stress disorder, unspecified; G89.4 Chronic pain syndrome; I11.0 Hypertensive heart disease with heart failure; I50.9 Heart failure, unspecified; J44.9 Chronic obstructive pulmonary disease, unspecified; T50.2X5A Adverse effect of carbonic-anhydrase inhibitors, benzothiadiazides and other diuretics, initial encounter; Z86.711 Personal history of pulmonary embolism; Z87.442 Personal history of urinary calculi; Z90.710 Acquired absence of both cervix and uterus
CPT/HCPCS: 36415; 71045; 80048; 80053; 80076; 81001; 83735; 84443; 84484; 85025; 85379; 85610; 85730; 87086; 87641; 93005; 94640; 96365; J0696; J2270; J2405; J3420; J3475; J3480; J7120; J7620; Q0162; 99285-25

== ENCOUNTER 2019-05-17 20:08 | Emergency (ER) | payer OTHER, MEDICAID ==
[~2019-05-17] VITALS: Ht 152.4 cm; Wt 84.0 kg
[~2019-05-17 20:08] MED LIST changes: +PHEN-318 PO
[2019-05-17 20:12] VITALS: BP 122/87
--- NOTE | 2019-05-17 21:06 | PHYS DOC ---
Past History Past Medical History: Asthma, CHF, COPD, DVT, Hypertension, Kidney Stones, MRSA, UTI, Other Additional Past Medical Histor: adrenal insufficiency, spinal stenosis, pulmonary embolism Past Surgical History: Cholecystectomy, Hysterectomy, Tonsillectomy, Other Additional Past Surgical Histo: gastrectomy, ventral hernia repair Alcohol Use: None Drug Use: None Adult General Chief Complaint Chief Complaint: URINE CATHETER PROBLEM HPI HPI 43-year-old female presents with suprapubic catheter complication. The patient felt like her catheter was loose and sliding an hour earlier today. She checked to see if there was still firmly in place and the catheter came all the way out. She noticed that the balloon was deflated. She cleaned the end of the catheter with alcohol wipes but then reinserted it to maintain the space. She is continued to have leaking around the site. She is due for a change of the catheter but supply company is not shipping her a new one for another week. Patient has noticed increase in sediment. She is on Pyridium, so the color is always orange. She denies fever or chills. She has no other complaints. Review of Systems Review of Systems Constitutional: Denies fever or chills [] Eyes: Denies change in visual acuity, redness, or eye pain [] HENT: Denies nasal congestion or sore throat [] Respiratory: Denies cough or shortness of breath [] Cardiovascular: No additional information not addressed in HPI [] GI: Denies abdominal pain, nausea, vomiting, bloody stools or diarrhea [] : Suprapubic catheter malfunction[] Musculoskeletal: Denies back pain or joint pain [] Integument: Denies rash or skin lesions [] Neurologic: Denies headache, focal weakness or sensory changes [] Endocrine: Denies polyuria or polydipsia [] All other systems were reviewed and found to be within normal limits, except as documented in this note. Allergies Allergies Allergies Coded Allergies Type Severity Reaction Last Updated Verified Sulfa (Sulfonamide Antibiotics) Allergy Intermediate 10/11/18 Yes citric acid Allergy Intermediate 10/11/18 Yes shellfish derived Allergy Intermediate 10/11/18 Yes I S O L A T I O N *CONTACT* Allergy Unknown 10/11/18 Yes Physical Exam Physical Exam Constitutional: Well developed, well nourished, no acute distress, non-toxic appearance. [] HENT: Normocephalic, atraumatic, bilateral external ears normal, oropharynx moist, no oral exudates, nose normal. [] Eyes: PERRLA, EOMI, conjunctiva normal, no discharge. [] Neck: Normal range of motion, no tenderness, supple, no stridor. [] Cardiovascular:Heart rate regular rhythm, no murmur [] Lungs & Thorax: Bilateral breath sounds clear to auscultation [] Abdomen: Bowel sounds normal, soft, no tenderness, no masses, no pulsatile masses. [] Skin: Warm, dry, no erythema, no rash. [] Back: No tenderness, no CVA tenderness. [] Extremities: No tenderness, no cyanosis, no clubbing, ROM intact, no edema. [] Neurologic: Alert and oriented X 3, normal motor function, normal sensory function, no focal deficits noted. [] Psychologic: Affect normal, judgement normal, mood normal. : Suprapubic catheter site appears well established and no sign of infection. Dark orange urine. [] EKG EKG [] Radiology/Procedures Radiology/Procedures [] Course & Med Decision Making Course & Med Decision Making Pertinent Labs and Imaging studies reviewed. (See chart for details) I was able to remove the patient's existing suprapubic catheter. The balloon in fact was deflated. We then placed a replacement 18 Russian catheter. It inserted without difficulty. I inflated with 10 mL and had good resistance to tugging on the tube indicating adequate balloon retention. There was immediate urine flow. We sent a sample to the lab. Patient tolerated the procedure well with no complications. The patient's urinalysis is obscured by the Pyridium. She does have moderate bacteria, greater than 40 white cells so I will treat her with levofloxacin or 7 days. She is stable for discharge at this time. [] Dragon Disclaimer Dragon Disclaimer This electronic medical record was generated, in whole or in part, using a voice recognition dictation system. Departure Departure: Impression: Primary Impression: Mechanical complication of suprapubic catheter Additional Impression: Catheter-associated urinary tract infection Disposition: 01 HOME, SELF-CARE Condition: IMPROVED Referrals: GABRIEL DO MD (PCP) Patient Instructions: Suprapubic Catheter Replacement, Care After Scripts Levofloxacin (LEVOFLOXACIN) 750 Mg Tablet 1 TAB PO DAILY for UTI, #7 TAB Prov: RICHARD GLOVER DO 05/17/19 Problem Qualifiers Primary Impression: Mechanical complication of suprapubic catheter Encounter type: initial encounter Qualified Codes: T83.090A - Other mechanical complication of cystostomy catheter, initial encounter Additional Impression: Catheter-associated urinary tract infection Indwelling urinary catheter type: cystostomy catheter Encounter type: initial encounter Qualified Codes: T83.510A - Infection and inflammatory reaction due to cystostomy catheter, initial encounter; N39.0 - Urinary tract infection, site not specified RICHARD GLOVER DO May 17, 2019 21:06
[2019-05-17 21:36] LABS: CLARITY,URINE HAZY; COLOR,URINE ORANGE
[2019-05-17 21:37] LABS: BILIRUBIN,URINE NEG (NEG)
[2019-05-17 21:38] LABS: BACTERIA,URINE MOD /HPF (0-FEW); WBC,URINE >40 /HPF (0-4)
[2019-05-17] MEDS ORDERED: LEVO750T5 PO (21:58)
[2019-05-17] MEDS ORDERED: levoFLOXacin 750 MG TABLET PO ONE (22:00)
[2019-05-17] MEDS ORDERED: levoFLOXacin 250 MG TABLET ONE (22:02)
== END 2019-05-17 22:09 | disposition home or self-care (01) ==
LOC: ER 20:08
DX: T83.030A Leakage of cystostomy catheter, initial encounter (principal); T83.510A Infection and inflammatory reaction due to cystostomy catheter, initial encounter; N39.0 Urinary tract infection, site not specified; J45.909 Unspecified asthma, uncomplicated; I11.0 Hypertensive heart disease with heart failure; I50.9 Heart failure, unspecified; J44.9 Chronic obstructive pulmonary disease, unspecified; Z86.718 Personal history of other venous thrombosis and embolism; Z87.442 Personal history of urinary calculi; Z87.440 Personal history of urinary (tract) infections; Z86.14 Personal history of Methicillin resistant Staphylococcus aureus infection; Z90.49 Acquired absence of other specified parts of digestive tract; Z90.710 Acquired absence of both cervix and uterus; Z88.2 Allergy status to sulfonamides; Z91.041 Radiographic dye allergy status; Z91.018 Allergy to other foods; Z91.013 Allergy to seafood
CPT/HCPCS: 51702; 81001; 87086; 99284

== ENCOUNTER 2019-05-30 17:54 | Observation (INO) | payer OTHER, MEDICAID ==
[~2019-05-30] VITALS: Ht 152.4 cm; Wt 88.2 kg
[~2019-05-30 17:54] MED LIST changes: +LEVO750T5 PO
[2019-05-30] MEDS ORDERED: IV NORMAL SALINE 1,000ML 1,000 ML IV ONE (18:15)
--- NOTE | 2019-05-30 18:41 | PHYS DOC ---
Past History Past Medical History: Asthma, CHF, COPD, DVT, Hypertension, Kidney Stones, MRSA, UTI, Other Additional Past Medical Histor: adrenal insufficiency, spinal stenosis, pulmonary embolism Past Surgical History: Cholecystectomy, Hysterectomy, Tonsillectomy, Other Additional Past Surgical Histo: gastrectomy, ventral hernia repair, ROTATOR CUFF SURGERY Alcohol Use: None Drug Use: None Adult General Chief Complaint Chief Complaint: WEAKNESS/GENERALIZED HPI HPI 43-year-old female presents via EMS with weakness. The patient states that she has been feeling very weak the last 2-3 days. She is unsure why. She is very sleepy. The patient had recent shoulder surgery and is on Percocet for pain. She did admit to falling and hitting her head 5 days ago. She did not get worked up for this. She denies any focal complaints. She does not believe she has had a fever. Review of Systems Review of Systems Constitutional: Weakness, sleepy. Denies fever or chills [] Eyes: Denies change in visual acuity, redness, or eye pain [] HENT: Denies nasal congestion or sore throat [] Respiratory: Denies cough or shortness of breath [] Cardiovascular: No additional information not addressed in HPI [] GI: Denies abdominal pain, nausea, vomiting, bloody stools or diarrhea [] : Denies dysuria or hematuria [] Musculoskeletal: Right shoulder pain from recent surgery[] Integument: Denies rash or skin lesions [] Neurologic: Denies headache, focal weakness or sensory changes [] Endocrine: Denies polyuria or polydipsia [] All other systems were reviewed and found to be within normal limits, except as documented in this note. Current Medications Current Medications Current Medications Medications (Trade) Dose Ordered Sig/Mani Start Time Stop Time Status Last Admin Dose Admin Sodium Chloride 1,000 ml @ 1,000 mls/hr 1X ONCE 05/30/19 18:15 05/30/19 19:14 Allergies Allergies Allergies Coded Allergies Type Severity Reaction Last Updated Verified Sulfa (Sulfonamide Antibiotics) Allergy Intermediate 10/11/18 Yes citric acid Allergy Intermediate 10/11/18 Yes shellfish derived Allergy Intermediate 10/11/18 Yes I S O L A T I O N *CONTACT* Allergy Unknown 10/11/18 Yes Physical Exam Physical Exam Constitutional: Drowsy but arousable. Well developed, well nourished, no acute distress, non-toxic appearance. [] HENT: Normocephalic, atraumatic, bilateral external ears normal, oropharynx moist, no oral exudates, nose normal. [] Eyes: PERRLA, EOMI, conjunctiva normal, no discharge. [] Neck: Normal range of motion, no tenderness, supple, no stridor. [] Cardiovascular:Heart rate regular rhythm, no murmur [] Lungs & Thorax: Bilateral breath sounds clear to auscultation [] Abdomen: Bowel sounds normal, soft, no tenderness, no masses, no pulsatile masses. [] Skin: Warm, dry, no erythema, no rash. [] Back: No tenderness, no CVA tenderness. [] Extremities: Right arm in shoulder immobilizer.[] Neurologic: Alert and oriented X 3, drowsy, normal motor function, normal sensory function, no focal deficits noted. [] Psychologic: Affect blunted, judgement normal, mood normal. [] EKG EKG Sinus rhythm, rate 58, normal axis, no ST elevations or depressions, flattened T waves.[] Radiology/Procedures Radiology/Procedures [] Impressions: CT HEAD WO CONTRAST History: Weakness, drowsy, recent fall Comparison: February 26, 2017 Technique: Noncontrast CT imaging was performed of the head. Exposure: One or more of the following individualized dose reduction techniques were utilized for this examination: 1. Automated exposure control 2. Adjustment of the mA and/or kV according to patient size 3. Use of iterative reconstruction technique. Findings: There is some motion degradation. No acute intracranial hemorrhage is identified. There is no midline shift or intra-axial mass effect. Peters-white differentiation of the major vascular territories is maintained. There is likely small right maxillary sinus mucous retention cyst about 1 cm. Mastoid air cells are aerated. Impression: 1. No acute intracranial abnormality is identified. Electronically signed by: Hawa Carrasco MD (05/30/2019 7:35 PM) [facility] DICTATED AND SIGNED BY: HAWA CARRASCO MD DATE: 05/30/191934 CC: RICHARD GLOVER DO; GABRIEL DO MD ~ Course & Med Decision Making Course & Med Decision Making Pertinent Labs and Imaging studies reviewed. (See chart for details) The patient's labs are significant for a low hemoglobin. Review of her chart shows that this is her baseline. Patient also has a potassium of 2.5. I will treat her with IV potassium. Her head CT is pending. The patient will be admitted to the hospital for her hypokalemia. The patient's head CT is negative for acute findings. I spoke with Dr. Simon and he has accepted the patient for admission. [] Dragon Disclaimer Dragon Disclaimer This electronic medical record was generated, in whole or in part, using a voice recognition dictation system. Departure Departure: Impression: Primary Impression: Hypokalemia Disposition: ADMITTED INPATIENT Admitting Physician: Lenin Simon Condition: STABLE Referrals: GABRIEL DO MD (PCP) RICHARD GLOVER DO May 30, 2019 18:41
[2019-05-30 19:02] LABS: BARBITURATES NEG (NEG); BENZODIAZEPINES POS (NEG); CANNABINOIDS NEG (NEG); COCAINE NEG (NEG); METHADONE NEG (NEG); OPIATES POS (NEG); PHENCYCLIDINE NEG (NEG)
[2019-05-30 19:05] LABS: AMPHETAMINE/METHAMPHETAMINE NEG (NEG)
[2019-05-30 19:08] LABS: BILIRUBIN,URINE NEG (NEG); CLARITY,URINE CLEAR; COLOR,URINE YELLOW; GLUCOSE,URINE NEG (NEG); NITRITE,URINE NEG (NEG); UROBILINOGEN,URINE 0.2 mg/dL (0.2 mg/dL)
[2019-05-30 19:09] LABS: BACTERIA,URINE FEW /HPF (0-FEW); RBC,URINE OCC /HPF (0-2); SQUAMOUS EPITHELIAL CELL,UR FEW /LPF; WBC,URINE OCC /HPF (0-4)
[2019-05-30 19:09] LABS: BASO # 0.1 x10^3/uL (0.0-0.2); BASO % 1 % (0-3); EOS # 0.2 x10^3/uL (0.0-0.7); EOS % 2 % (0-3); HEMATOCRIT 30.1 % (36.0-47.0); HEMOGLOBIN 9.8 g/dL (12.0-15.5); LYMPH # 2.3 x10^3/uL (1.0-4.8); LYMPH % 28 % (24-48); MEAN CORPUSCULAR HEMOGLOBIN 33 pg (25-35); MEAN CORPUSCULAR HGB CONC 33 g/dL (31-37); MEAN CORPUSCULAR VOLUME 101 fL (79-100); MONO # 0.5 x10^3/uL (0.0-1.1); MONO % 6 % (0-9); NEUT % 63 % (31-73); PLATELET COUNT 163 x10^3/uL (140-400); RED BLOOD COUNT 2.99 x10^6/uL (3.50-5.40); RED CELL DISTRIBUTION WIDTH 14.4 % (11.5-14.5)
[2019-05-30 19:21] LABS: ALBUMIN 3.1 g/dL (3.4-5.0); ALBUMIN/GLOBULIN RATIO 1.1 (1.0-1.7); CALCIUM 8.3 mg/dL (8.5-10.1); CREATININE 1.3 mg/dL (0.6-1.0); GFR 44.5; TOTAL BILIRUBIN 0.3 mg/dL (0.2-1.0); TOTAL PROTEIN 5.9 g/dL (6.4-8.2)
[2019-05-30 19:24] LABS: POTASSIUM 2.5 mmol/L (3.5-5.1)
[2019-05-30] MEDS ORDERED: POTASSIUM CL 40MEQ IN 0.9%NACL 1,000 ML IV ONE (19:30)
--- NOTE | 2019-05-30 19:38 | RAD ---
CT HEAD WO CONTRAST History: Weakness, drowsy, recent fall Comparison: February 26, 2017 Technique: Noncontrast CT imaging was performed of the head. Exposure: One or more of the following individualized dose reduction techniques were utilized for this examination: 1. Automated exposure control 2. Adjustment of the mA and/or kV according to patient size 3. Use of iterative reconstruction technique. Findings: There is some motion degradation. No acute intracranial hemorrhage is identified. There is no midline shift or intra-axial mass effect. Peters-white differentiation of the major vascular territories is maintained. There is likely small right maxillary sinus mucous retention cyst about 1 cm. Mastoid air cells are aerated. Impression: 1. No acute intracranial abnormality is identified. Electronically signed by: Lavon Garrett MD (05/30/2019 7:35 PM) [facility]
[2019-05-30 22:00] VITALS: BP 109/74
[2019-05-30] MEDS ORDERED: POTASSIUM BICARB 20 MEQ EFFERVESCENT TABLET. PO SCH (22:15)
[2019-05-30] MEDS ORDERED: TORS20TA2 PO (23:23)
[2019-05-30] MEDS ORDERED: ALPR0.254 PO (23:23)
[2019-05-30] MEDS ORDERED: FLUD0.1T PO (23:23)
[2019-05-30] MEDS ORDERED: METO5TAB4 PO (23:23)
[2019-05-30] MEDS ORDERED: PHEN-443 PO (23:23)
[2019-05-30] MEDS ORDERED: ASCO100T4 PO (23:33)
[2019-05-30] MEDS ORDERED: PHENAZOPYRIDINE 100 MG TABLET. PO SCH (23:45)
[2019-05-31] MEDS: MELATONIN 3 MG TABLET PO SCH ×2 (00:05→20:18)
[2019-05-31] MEDS: MIRTAZAPINE 30 MG TABLET PO SCH ×2 (00:05→20:16)
[2019-05-31] MEDS: ALPRAZolam 0.25 MG TABLET PO SCH ×3 (00:05→20:16)
[2019-05-31] MEDS: ACETAMINOPHEN/CODEINE 300/30MG TABLET PO PRN ×4 (00:06→17:50)
[2019-05-31] MEDS ORDERED: ONDANSETRON PF 4 MG/2 ML VIAL. IV PRN (00:45)
[2019-05-31] MEDS ORDERED: POTASSIUM CHLORIDE 20 MEQ TABLET.ER. PO ONE (01:00)
[2019-05-31 05:23] VITALS: BP 92/64
[2019-05-31 06:46] LABS: GFR 60.2
[2019-05-31 06:50] LABS: POTASSIUM 3.8 mmol/L (3.5-5.1)
[2019-05-31] MEDS: PHENAZOPYRIDINE 200 MG TABLET. PO SCH ×3 (08:50→20:16)
[2019-05-31] MEDS: HYDROCORTISONE 10 MG TABLET PO SCH ×2 (09:38→20:16)
[2019-05-31] MEDS: FLUDROCORTISONE 0.1 MG TABLET PO SCH ×2 (09:39→20:19)
[2019-05-31 10:46] VITALS: BP 100/70
[2019-05-31 14:58] VITALS: BP 110/73
[2019-05-31] MEDS ORDERED: TORSEMIDE 20 MG TABLET. PO PRN (15:00)
--- NOTE | 2019-05-31 15:50 | RAD ---
TIBIA FIBULA LEFT DATE: 05/31/2019 9:01 AM INDICATION: Fall, bruising COMPARISON: None. FINDINGS: Bones: There is no evidence of acute fracture. No joint dislocation is noted. Miscellaneous: Subcutaneous edema IMPRESSION: No evidence of acute fracture. Electronically signed by: Lavon Suggs MD (05/31/2019 3:47 PM) [facility]
[2019-05-31] MEDS: ASCORBIC ACID 500 MG TABLET PO SCH (16:27)
[2019-05-31] MEDS: GABAPENTIN 100 MG CAPSULE. PO SCH ×2 (16:27→20:17)
[2019-05-31 16:40] LABS: CALCIUM 8.3 mg/dL (8.5-10.1); CREATININE 0.9 mg/dL (0.6-1.0); POTASSIUM 3.5 mmol/L (3.5-5.1)
--- NOTE | 2019-05-31 16:42 | RAD ---
Indication: Constipation versus bowel obstruction TECHNIQUE: 2 views of the abdomen and pelvis COMPARISON: None FINDINGS: Visualized lung bases are clear. No abnormally dilated bowel loops. Large amount of stool is seen in the colon. Status post cholecystectomy. No abnormal calcific densities projecting over the kidneys to suggest apparent renal stones. Visualized bones are within normal limits. IMPRESSION: Large amount of colonic stool burden, patient may be constipated. No imaging evidence of high-grade bowel obstruction. Electronically signed by: Geovani Gallardo DO (05/31/2019 4:40 PM) [facility]
--- NOTE | 2019-05-31 16:52 | HP ---
ADMIT DATE: 05/30/2019 HISTORY OF PRESENT ILLNESS: The patient is a 43-year-old female patient who came to the Emergency Room complaining of generalized weakness. She apparently has fallen about 2 weeks ago and had had sustained some bruises on her right face and also left knee joint and the left leg. The generalized weakness has been progressing over the last 2-3 days. When she arrived, she was very sleepy. She had had right rotator cuff surgery about [address] Morocho at [facility] for which she was started on Percocet. She did admit to falling and hitting her head 5 days ago. She did not see any doctor for that. She denied any focal complaint and she does not believe that she had any fever. She was extensively investigated in the Emergency Room and her lab work showed she has severe hypokalemia with the serum potassium only 2.5 something that she has been here before. She also had acute kidney injury. Her tox screen was positive for opiates as well as benzodiazepine. Her urinalysis was essentially unremarkable at this time. Given that she was lethargic, she had had a CT scan of the head, which showed that there is some motion degradation; however, no acute intracranial hemorrhage identified. There is no midline shift or intraaxial mass effect. Peters-white differentiation of the major vascular territories is maintained. There is likely a small right maxillary sinus mucous retention cyst about 1 cm, mastoid air cells are aerated. The patient was admitted and was started on all her medication as well as to replenish her potassium both orally and intravenously. PAST MEDICAL HISTORY: Significant for bronchial asthma, chronic obstructive pulmonary disease. She has also mild stroke with left-sided weakness, hypertension, history of methicillin-resistant Staphylococcus aureus infection, adrenal insufficiency, gastroparesis and lumbar spinal stenosis. She does have history of C. diff colitis, pulmonary embolism, hemorrhoids, hiatal hernia, body image disorder, kidney stones, footdrop, anxiety, depression and tobacco use. PAST SURGICAL HISTORY: Significant for tonsillectomy, adenoidectomy, cholecystectomy, gastrectomy with multiple abdominal surgeries with history of J-tube placement, ventral hernia repair, cyst excision, hysterectomy and most recently right rotator cuff repair. ALLERGIES: SHE IS ALLERGIC TO SULFA DRUGS, CITRIC ACID AND SHELLFISH. FAMILY HISTORY: She has 2 brothers, both older and alive, her older brother has diabetes and hypertension, the younger brother has hypertension, his diabetes was ameliorated after he underwent bypass surgery. Her father is still alive at the age of 73, he is known to have myocardial infarction and underwent 5-vessel coronary artery bypass graft surgery. Mother is still alive at the age of 72 and has had myocardial infarction for which she underwent PCI with stent deployment. SOCIAL HISTORY: She is , has 1 son. She smokes half a pack a day. She does not drink alcohol or use any recreational drugs. 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 MEDICATIONS: She is currently on following medications: She is on spironolactone 25 mg twice a day, aspirin 325 mg twice a day, acetaminophen with codeine 2 tablets every 6 hours, gabapentin 100 mg 3 times a day, topiramate 50 mg twice a day, duloxetine 60 mg twice a day, mirtazapine 30 mg at bedtime, trazodone 100 mg at bedtime, alprazolam 0.25 mg twice a day; potassium chloride 20 mEq, she takes 40 three times a day; torsemide 20 mg, she takes 1 to 2 tablets as needed; metolazone 5 mg p.o. daily, Protonix 40 mg once a day; fludrocortisone, she takes a total of 600 mcg daily; hydrocortisone 20 mg twice a day, phenazopyridine 200 mg 3 times a day, ascorbic acid for vitamin C 100 mg 3 times a day with meals, multivitamin 1 tablet twice a day, melatonin 5 mg p.o. at bedtime. REVIEW OF SYSTEMS: As per history of present illness. PHYSICAL EXAMINATION: GENERAL: On arrival to the Emergency Room, the patient looked well and was clearly in no apparent respiratory distress. No pallor, jaundice, cyanosis or thyromegaly. No jugular venous distention. No limb edema. VITAL SIGNS: Her heart rate was 67, blood pressure was 85/55, temperature was 98.1, respiratory rate 20 and oxygen saturation 100% on 3 liters of oxygen. HEAD, EYES, EARS, NOSE AND THROAT: Showed normocephalic, atraumatic. NECK: Supple. HEART: Showed normal first and second heart sounds. No gallop or murmur. CHEST: Clear to auscultation. No crepitation or rhonchi. ABDOMEN: Distended, soft, nontender. NEUROLOGIC: She is awake, alert, responding appropriately. Her right shoulder is in a shoulder immobilizer. However, all cranial nerves intact. She moves her upper and both lower extremities without difficulty. LABORATORY DATA: Her lab work on arrival showed that her white cell count was 8000, hemoglobin 9.8, hematocrit 30, MCV 101 and platelet count of 163,000. Her chemistry on arrival showed a serum sodium 143, potassium 2.5, chloride 105, bicarbonate 30, anion gap of 8, BUN 21, creatinine 1.3, estimated GFR was 44 mL per minute. Her glucose 98, calcium was 8.3. Total bilirubin, AST, ALT, alkaline phosphatase were normal. Her total protein was 5.9, albumin was 3.1. Her urinalysis showed the urine was yellow, clear, with a pH of 6, specific gravity of 1.015. The urine was negative for protein, glucose, ketones, blood, nitrite, bilirubin, negative for leukocyte esterase, occasional rbc's, occasional wbc's, and very few bacteria. Her urine toxic screen showed that she was positive for opiates and benzodiazepine, negative for all other drugs. IMAGING STUDIES: She has had a CT scan of the head, which showed no acute intracranial abnormalities identified. She has had also x-ray of the left tibia and fibula. She has markedly bruised left lower extremity below the left knee. I looked at the x-ray myself and I do not see an obvious fracture; however, it was not read yet by the radiologist at the time of this dictation. PLAN: We will replenish her potassium, treat her constipation and decide the further management accordingly. UMESH HOLCOMB MD DR: RONALD/shayna JOB#: [id number] / [id number]
[2019-05-31] MEDS ORDERED: METHYLNALTREXONE 12 MG/0.6 ML VIAL. SQ ONE (18:30)
[2019-05-31 18:56] VITALS: BP 104/68
[2019-05-31] MEDS: ASPIRIN 325 MG TABLET PO SCH (20:16)
[2019-05-31] MEDS: TOPIRAMATE 25 MG TABLET. PO SCH (20:16)
[2019-05-31] MEDS: POTASSIUM CHLORIDE 20 MEQ TABLET.ER. PO SCH (20:18)
[2019-05-31] MEDS: oxyCODONE/APAP 5/325 1 TAB TABLET PO PRN (20:18)
[2019-05-31] MEDS: DULoxetine HCL 60 MG CAPSULE.DR PO SCH (20:19)
[2019-05-31] MEDS: MULTIVITAMIN with MINERAL TABLET. PO SCH (20:19)
[2019-05-31] MEDS ORDERED: traZODone 100 MG TABLET. PO SCH (21:00)
--- NOTE | 2019-06-01 01:47 | EKG ---
[address] [address] Test Date: 2019-05-30 Test Time: 19:31:07 Pat Name: ROSANGELA FLORENCE Department: Room: Gender: F Director Of Online Merchandising: : 1975 Requested By: RICHARD GLOVER Order Number: [id number] Reading MD: Measurements Intervals [place] Rate: 58 P: 39 MD: 148 QRS: 4 QRSD: 86 T: 23 QT: 470 QTc: 461 Interpretive Statements SINUS RHYTHM QRS(T) CONTOUR ABNORMALITY CONSIDER ANTEROLATERAL MYOCARDIAL DAMAGE POSSIBLY ABNORMAL ECG RI6.01 No previous ECG available for comparison
--- NOTE | 2019-06-01 02:01 | PN ---
DATE: 05/31/2019 SUBJECTIVE: The patient is resting, slightly propped up in bed, in no apparent distress. She continued to complain of generalized weakness, pain in her left leg, has not had any bowel movement for almost 6 days now. On admission, her potassium was extremely low and 2.5 mEq per liter and she was replenished and her potassium this morning was 3.8. PHYSICAL EXAMINATION: GENERAL: When I examined her this afternoon, she looked well and was clearly in no apparent respiratory distress. No pallor, jaundice or cyanosis. No lymphadenopathy, no thyromegaly. No jugular venous distention. No limb edema. VITAL SIGNS: Her heart rate was 101, blood pressure was 110/73, temperature was 98.4, respiratory rate 20, and oxygen saturation was 93% on 3 liters of oxygen by nasal cannula. HEAD, EYES, EARS, NOSE AND THROAT: Normocephalic, atraumatic. NECK: Supple. HEART: Showed normal first and second heart sounds with no gallop or murmur. CHEST: Clear to auscultation. No crepitation or rhonchi. ABDOMEN: Distended, soft, nontender. No guarding or rigidity. No organomegaly. All hernial orifice intact. Bowel sounds normal. NEUROLOGIC: She is awake, alert, responding appropriately. All cranial nerves are intact. She moves extremities without difficulty. She ambulates with assistance. Her intake over the last 24 hours was 2600, output was 600. LABORATORY DATA: Her lab work this morning showed her serum sodium was 143, potassium 3.8, chloride 109, bicarbonate 27, anion gap of 7, BUN 16, creatinine was 1. Estimated GFR was 60 mL per minute. Her glucose was 87, calcium was 8. ASSESSMENT: 1. Generalized weakness. 2. Hypokalemia, profound, improved to 3.8. 3. Constipation, most likely opioid induced. PLAN: My plan is to reconcile all her medications. We will do a KUB and we might have to consider Relistor for her opioid-induced constipation. UMESH HOLCOMB MD DR: RONALD/shayna JOB#: [id number] / [id number]
[2019-06-01] MEDS: oxyCODONE/APAP 5/325 1 TAB TABLET PO PRN ×2 (02:58→09:10)
[2019-06-01 06:26] VITALS: BP 100/69
[2019-06-01 06:54] LABS: HEMATOCRIT 31.7 % (36.0-47.0); RED BLOOD COUNT 3.13 x10^6/uL (3.50-5.40); RED CELL DISTRIBUTION WIDTH 14.2 % (11.5-14.5); WHITE BLOOD COUNT 6.6 x10^3/uL (4.0-11.0)
[2019-06-01 07:08] LABS: ALBUMIN 2.7 g/dL (3.4-5.0); CALCIUM 8.2 mg/dL (8.5-10.1); CREATININE 0.9 mg/dL (0.6-1.0); POTASSIUM 3.1 mmol/L (3.5-5.1); TOTAL BILIRUBIN 0.2 mg/dL (0.2-1.0); TOTAL PROTEIN 5.4 g/dL (6.4-8.2)
[2019-06-01] MEDS ORDERED: PANTOPRAZOLE 40 MG TABLET. PO SCH (07:30)
[2019-06-01] MEDS: TOPIRAMATE 25 MG TABLET. PO SCH (08:29)
[2019-06-01] MEDS: ALPRAZolam 0.25 MG TABLET PO SCH (08:29)
[2019-06-01] MEDS: PHENAZOPYRIDINE 200 MG TABLET. PO SCH (08:29)
[2019-06-01] MEDS: DULoxetine HCL 60 MG CAPSULE.DR PO SCH (08:29)
[2019-06-01] MEDS: POTASSIUM CHLORIDE 20 MEQ TABLET.ER. PO SCH (08:30)
[2019-06-01] MEDS: GABAPENTIN 100 MG CAPSULE. PO SCH (08:30)
[2019-06-01] MEDS: MULTIVITAMIN with MINERAL TABLET. PO SCH (08:30)
[2019-06-01] MEDS: ASPIRIN 325 MG TABLET PO SCH (08:30)
[2019-06-01] MEDS: ASCORBIC ACID 500 MG TABLET PO SCH ×2 (08:30→12:19)
[2019-06-01] MEDS: FLUDROCORTISONE 0.1 MG TABLET PO SCH (08:31)
[2019-06-01] MEDS: HYDROCORTISONE 10 MG TABLET PO SCH (08:31)
[2019-06-01 11:01] VITALS: BP 95/62
[2019-06-01] MEDS ORDERED: POTA20TA4 PO (11:38)
[2019-06-01] MEDS ORDERED: POLY17PO5 PO (11:44)
[2019-06-01] MEDS ORDERED: DOCU-109 PO (11:44)
--- NOTE | 2019-06-01 11:46 | DISCH ---
HOME HEALTH DISCHARGE/MEDS DISCHARGE INFORMATION: Discharge Date: Jun 01, 2019 Final Diagnosis: Problems Medical Problems: (1) Hypokalemia Status: Acute Condition on Discharge: Stable CODE STATUS: Code Status: Full HOME HEALTH: Face to Face: I certify this patient is under my care and that I, or a nurse practitioner or physician's food and beverage assistant manager working with me, had a face to face encounter that meets the physician face to face encounter requirements with this patient on 06/01/19 Medical Condition(s): Other Retirement For: Assess & Educate Safety Physical Therapy For: Evalulation/Treatment Occupational Therapy For: Evaluation/Treatment Homebound Status Met By: Unsteady balance w/ amb, POST DISCHARGE ORDERS: Activity Instructions for Disc: Resume previous activity DIET AFTER DISCHARGE: Regular CERTIFICATION STATEMENT: Certification Statement: Based on the above finding, I certify that this patient is confined to the home and needs intermittent assisted care, physical th erapy and/or speech therapy, or continues to need occupational therapy.~ This patient is under my care, and I have initiated the establishment of the plan of care.~ This patient will be followed by myself or a community physician who will periodically review the plan of care. DISCHARGE MEDICATIONS: Home Meds Active Scripts Polyethylene Glycol 3350 (MIRALAX) 17 Gm Powd.pack, 1 PACKET PO DAILY for constipation for 2 Days, #2 PACKET 0 Refills dissolve in water Prov:UMESH HOLCOMB MD 06/01/19 Docusate Sodium (COLACE) 100 Mg Capsule, 1 CAP PO BID for constipation for 30 Days, #60 CAP 0 Refills Prov:UMESH HOLCOMB MD 06/01/19 Potassium Chloride (KLOR-CON M20) 20 Meq Tab.er.prt, 2 TAB PO QID for hypokalemia for 30 Days, #240 TAB 0 Refills Prov:UMESH HOLCOMB MD 06/01/19 Reported Medications Ascorbic Acid (VITAMIN C) 100 Mg Tablet, 100 MG PO TIDWMEALS for SUPPLEMENT, TAB 05/30/19 Fludrocortisone Acetate (FLUDROCORTISONE ACETATE) 0.1 Mg Tablet, 3 TAB PO BID for GERARDO'S 05/30/19 Phenazopyridine Hcl (PHENAZOPYRIDINE HCL) 100 Mg Tablet, 200 MG PO TID for urinary pain 05/30/19 Alprazolam (ALPRAZOLAM) 0.25 Mg Tablet, 0.25 MG PO BID for ANXIETY 05/30/19 Torsemide (TORSEMIDE) 20 Mg Tablet, 1-2 TAB PO PRN DAILY PRN for SWELLING 05/30/19 Metolazone (METOLAZONE) 5 Mg Tablet, 5 MG PO DAILY for SWELLING 05/30/19 Acetaminophen With Codeine (TYLENOL WITH CODEINE #3 TABLET) 1 Each Tablet, 2 TAB PO PRN Q6HRS PRN for PAIN, #30 TAB 01/20/19 Melatonin (MELATONIN) 3 Mg Tablet, 5 MG PO QHS for insomnia, TAB 01/20/19 Aspirin (ASPIRIN) 325 Mg Tablet, 325 MG PO BID for heart health, TAB 01/20/19 Hydrocortisone (HYDROCORTISONE) 5 Mg Tablet, 20 MG PO BID for COPD 01/20/19 Mirtazapine (MIRTAZAPINE) 30 Mg Tablet, 1 TAB PO QHS for MOOD DISORDER 10/10/18 Trazodone Hcl (TRAZODONE HCL) 100 Mg Tablet, 1 TAB PO QHS for SLEEP AID 10/10/18 Pantoprazole Sodium (PANTOPRAZOLE SODIUM) 40 Mg Tablet.dr, 1 TAB PO DAILYAC for HEARTBURN 10/10/18 Duloxetine Hcl (CYMBALTA) 60 Mg Capsule.dr, 1 CAP PO BID for DEPRESSION 10/10/18 Gabapentin (GABAPENTIN ) 100 Mg Capsule, 100 MG PO TID for NERVE PAIN 10/10/18 Spironolactone (SPIRONOLACTONE) 25 Mg Tablet, 1 TAB PO BID92 for FLUID RETENTION 10/10/18 Multivitamin (MULTIVITAMINS) 1 Each Tablet, 1 TAB PO BID for SUPPLEMENT 10/10/18 Topiramate (TOPIRAMATE) 50 Mg Tablet, 1 TAB PO BID for MIGRAINES 10/10/18 Discontinued Scripts Potassium Chloride (KLOR-CON M20) 20 Meq Tab.er.prt, 2 TAB PO TID for hypokalemia for 30 Days, #180 TAB 3 Refills Prov:UMESH HOLCOMB MD 02/10/19 UMESH HOLCOMB MD Jun 01, 2019 11:46
[2019-06-01] MEDS ORDERED: POTASSIUM CHLORIDE 20 MEQ TABLET.ER. PO SCH (12:15)
[2019-06-01] MEDS ORDERED: HEPARIN PF 500 UNIT/5 ML DISP.SYRIN. IVP ONE (12:30)
[2019-06-01] MEDS ORDERED: SPIRONOLACTONE 25 MG TABLET PO SCH (15:00)
--- NOTE | 2019-06-01 21:47 | DS ---
DATE OF DISCHARGE: HOSPITAL COURSE: The patient is a 43-year-old female patient who was admitted with generalized weakness, was found to have profound hypokalemia with serum potassium only 2.5. She also has severe constipation, has not had any bowel movement for the last 6 days. She is on narcotics and her mobility is poor and with low potassium, a perfect setting for severe constipation. We replenished her potassium and also treated her with a dose of Relistor and she has large bowel movement. PHYSICAL EXAMINATION: GENERAL: When I saw her today, she looked well and was clearly in no apparent respiratory distress, slightly pale. No jaundice, cyanosis or thyromegaly. No jugular venous distention. No limb edema. VITAL SIGNS: Her heart rate was 82, blood pressure was 95/62, temperature was 98.8, respiratory rate 20 and oxygen saturation was 95% on 3 liters of oxygen. HEAD, EYES, EARS, NOSE AND THROAT: Showed normocephalic, atraumatic. NECK: Supple. HEART: Showed normal first and second heart sounds. No gallop, rub or murmur. CHEST: Clear to auscultation. No crepitation or rhonchi. ABDOMEN: Distended, soft, nontender. No guarding or rigidity. No organomegaly. All hernial orifice intact. Bowel sounds normal. NEUROLOGIC: She was awake, alert, responding appropriately. She ambulates without assistance or assistive devices. Her intake was 2600, output was 600. LABORATORY DATA: Her lab work this morning showed a white cell count of 6600, hemoglobin 10, hematocrit 32, MCV 101 and platelet count 259,000. Serum sodium was 141, potassium 3.1, chloride 108, bicarbonate 29, anion gap of 4, BUN 10, creatinine 0.9, estimated GFR was 68 mL per minute, her glucose was 89, calcium was 8.2. Total bilirubin, AST, ALT, alkaline phosphatase were normal. Total protein was 5.4, albumin was 7. DISCHARGE MEDICATIONS: The patient was discharged home to continue on all her medication. The only change I made to increase her potassium to 40 mEq 4 times a day. I did start her also on Colace 100 mg twice a day and MiraLax 17 grams daily. She will be discharged home with home health with plan to check her potassium twice a week and if the potassium is equal to 5 or more than 5, her potassium should be cut down back to 40 mEq 3 times a day. FINAL DISCHARGE DIAGNOSES: 1. Profound hypokalemia, multifactorial as she is on furosemide, metolazone as well as fludrocortisone 600 mcg. 2. Severe constipation, multifactorial including opioids, poor mobility and severe hypokalemia, resolved. She has multiple other medical problems including bronchial asthma, chronic obstructive pulmonary disease, clinically quiescent. The patient has also adrenal insufficiency, for which she is on hydrocortisone 3. Hypertension, well controlled. UMESH HOLCOMB MD DR: RONALD/shayna JOB#: [id number] / [id number]
== END 2019-06-01 12:44 | disposition home health service (06) ==
LOC: ER 17:54 → 1 SOUTH 20:30 → INTOOBSV 20:30
PROVIDERS: ADMIT Internal Medicine; ATTEND Internal Medicine
DX: R53.1 Weakness (principal); E87.6 Hypokalemia; I11.0 Hypertensive heart disease with heart failure; I50.9 Heart failure, unspecified; K59.00 Constipation, unspecified; J45.909 Unspecified asthma, uncomplicated; J44.9 Chronic obstructive pulmonary disease, unspecified; Z87.440 Personal history of urinary (tract) infections; Z87.442 Personal history of urinary calculi; Z86.711 Personal history of pulmonary embolism; Z90.49 Acquired absence of other specified parts of digestive tract; Z90.710 Acquired absence of both cervix and uterus
CPT/HCPCS: 36415; 70450; 73590; 74018; 80048; 80053; 80307; 81001; 84132; 84443; 85025; 85027; 93005; 96365; 96366; 96372; 96375; 97162; 97166; 97530; 99284; 99406; G0378; J2212; G0379; 99285-25; J7030

== ENCOUNTER 2019-07-14 13:38 | Emergency (ER) | payer OTHER, MEDICAID ==
[~2019-07-14] VITALS: Ht 152.4 cm; Wt 84.0 kg
[~2019-07-14 13:38] MED LIST changes: +ALPR0.254 PO; +ASCO100T4 PO; +DOCU-109 PO; +POLY17PO5 PO; +TORS20TA2 PO; +TRAZ-125 PO; -TRAZ-86 PO
[2019-07-14] MEDS ORDERED: CEFD300C PO (14:48)
--- NOTE | 2019-07-14 14:49 | PHYS DOC ---
Past History Past Medical History: Asthma, CHF, COPD, DVT, Hypertension, Kidney Stones, MRSA, UTI, Other Additional Past Medical Histor: adrenal insufficiency, spinal stenosis, pulmonary embolism Past Surgical History: Cholecystectomy, Hysterectomy, Tonsillectomy, Other Additional Past Surgical Histo: gastrectomy, ventral hernia repair, ROTATOR CUFF SURGERY Alcohol Use: None Drug Use: None Adult General Chief Complaint Chief Complaint: URINE CATHETER PROBLEM [facility] HPI Patient is a 43 year old female who presents with problems with her suprapubic catheter. Shelby states that she has had drainage around her suprapubic catheter. She describes foul-smelling odor similar to previous urinary tract infections. She describes mild discomfort in the skin around the site. She has no nausea or vomiting. She has no fevers sweats or chills. She has no other associated symptoms. Review of Systems Review of Systems Constitutional: Denies fever or chills [] Eyes: Denies change in visual acuity, redness, or eye pain [] HENT: Denies nasal congestion or sore throat [] Respiratory: Denies cough or shortness of breath [] Cardiovascular: No additional information not addressed in HPI [] GI: Denies abdominal pain, nausea, vomiting, bloody stools or diarrhea [] : Negative except history of present illness Musculoskeletal: Denies back pain or joint pain [] Integument: Denies rash or skin lesions [] Neurologic: Denies headache, focal weakness or sensory changes [] Endocrine: Denies polyuria or polydipsia [] All other systems were reviewed and found to be within normal limits, except as documented in this note. Family History Family History No pertinent family medical history was reported Current Medications Current Medications Current medications were reviewed Allergies Allergies Allergies Coded Allergies Type Severity Reaction Last Updated Verified Sulfa (Sulfonamide Antibiotics) Allergy Intermediate 10/11/18 Yes citric acid Allergy Intermediate 10/11/18 Yes shellfish derived Allergy Intermediate 10/11/18 Yes I S O L A T I O N *CONTACT* Allergy Unknown 10/11/18 Yes Physical Exam Physical Exam Constitutional: Well developed, well nourished, no acute distress, non-toxic appearance. [] HENT: Normocephalic, atraumatic, Eyes: EOMI, conjunctiva normal, no discharge. [] Neck: Normal range of motion, no tenderness, supple, no stridor. [] Cardiovascular:Heart rate regular rhythm, Lungs & Thorax: Bilateral breath sounds clear to auscultation [] Abdomen: Bowel sounds normal, soft, no tenderness, no masses, no pulsatile masses. [] Skin: Warm, dry, no erythema, no rash. [] Mild erythema around the site with mucus-like drainage Extremities: No tenderness, no cyanosis, no clubbing, ROM intact, no edema. [] Neurologic: Alert and oriented X 3, normal motor function, normal sensory function, no focal deficits noted. [] Psychologic: Affect normal, judgement normal, mood normal. [] EKG EKG [] Radiology/Procedures Radiology/Procedures [] Course & Med Decision Making Course & Med Decision Making Pertinent Labs and Imaging studies reviewed. (See chart for details) Her catheter was replaced and she was started on antibiotics. Dragon Disclaimer Dragon Disclaimer This electronic medical record was generated, in whole or in part, using a voice recognition dictation system. Departure Departure: Impression: Primary Impression: UTI (urinary tract infection) Disposition: HOME, SELF-CARE Condition: STABLE Referrals: GABRIEL DO MD (PCP) Patient Instructions: Urinary Tract Infection Additional Instructions: Shelby was seen in the emergency department for problems with her suprapubic catheter. No emergency medical condition was found on history physical exam. She was found have symptoms consistent with a urinary tract infection. She was give n an antibiotic and advised follow-up with her primary care doctor in the next 5-7 days for further management. She was also advised to return to the emergency room if she develops new or worsening symptoms. Scripts Cefdinir (CEFDINIR) 300 Mg Capsule 1 CAP PO BID for UTI for 14 Days, #28 CAP Prov: CHAPARRO NUNEZ MD 07/14/19 Problem Qualifiers Primary Impression: UTI (urinary tract infection) Urinary tract infection type: catheter-associated UTI Indwelling urinary catheter type: indwelling urethral catheter Encounter type: initial encounter Qualified Codes: T83.511A - Infection and inflammatory reaction due to indwelling urethral catheter, initial encounter; N39.0 - Urinary tract infection, site not specified CHAPARRO NUNEZ MD Jul 14, 2019 14:49
[2019-07-14 15:20] VITALS: BP 108/69
[2019-07-14 15:45] LABS: BACTERIA,URINE FEW /HPF (0-FEW); BILIRUBIN,URINE NEG (NEG); CLARITY,URINE HAZY; COLOR,URINE YELLOW; GLUCOSE,URINE NEG (NEG); NITRITE,URINE NEG (NEG); UROBILINOGEN,URINE 0.2 mg/dL (0.2 mg/dL)
[2019-07-14 15:46] LABS: SQUAMOUS EPITHELIAL CELL,UR FEW /LPF
== END 2019-07-14 15:31 | disposition home or self-care (01) ==
LOC: ER 13:38
DX: T83.518A Infection and inflammatory reaction due to other urinary catheter, initial encounter (principal); N39.0 Urinary tract infection, site not specified; J45.909 Unspecified asthma, uncomplicated; I11.0 Hypertensive heart disease with heart failure; I50.9 Heart failure, unspecified; Z86.718 Personal history of other venous thrombosis and embolism; Z87.442 Personal history of urinary calculi; Z86.14 Personal history of Methicillin resistant Staphylococcus aureus infection; Z87.440 Personal history of urinary (tract) infections; Z86.711 Personal history of pulmonary embolism; Z90.49 Acquired absence of other specified parts of digestive tract; Z90.710 Acquired absence of both cervix and uterus; Z93.1 Gastrostomy status
CPT/HCPCS: 51705; 81001; 87086; 87186; 99284

== ENCOUNTER 2019-07-23 09:50 | Inpatient (IN) | payer OTHER, MEDICAID ==
[~2019-07-23] VITALS: Ht 152.4 cm; Wt 94.0 kg
[2019-07-23 02:13] VITALS: BP 111/74
[~2019-07-23 09:50] MED LIST changes: +CEFD300C PO
--- NOTE | 2019-07-23 10:20 | PHYS DOC ---
Past History Past Medical History: UTI Additional Past Medical Histor: adrenal insufficiency, spinal stenosis, pulmonary embolism Past Surgical History: No Surgical History Additional Past Surgical Histo: gastrectomy, ventral hernia repair, ROTATOR CUFF SURGERY Alcohol Use: None Drug Use: None Adult General Chief Complaint Chief Complaint: MUSCLE SPASM/CRAMP HPI HPI Patient is a 43-year-old female, with a history of congestive heart failure, [place]os[place]'s disease, depression, and other health problems, who presents to the emergency department for evaluation. She states for the past few days, she has been having increasing muscle cramps, similar to when she has had hypokalemia. She denies any focal pain, but states that sometimes her fingers and ankles will lock up. She denies any new chest pain, shortness of breath, dizziness, lightheadedness, numbness, or weakness. Her right shoulder is in a shoulder sling, which she states has been the case since a shoulder surgery in April. There are no alleviating or exacerbating factors to her symptoms. She does take fludrocortisone and hydrocortisone. Review of Systems Review of Systems Constitutional: Denies fever or chills [] Eyes: Denies change in visual acuity, redness, or eye pain [] HENT: Denies nasal congestion or sore throat [] Respiratory: Denies cough or shortness of breath [] Cardiovascular: The patient denies any shortness of breath, chest pain, palpitations, or orthopnea [] GI: Denies abdominal pain, nausea, vomiting, bloody stools or diarrhea [] : Denies dysuria or hematuria [] Musculoskeletal: Denies back pain or joint pain. Reports diffuse myalgias. [] Integument: Denies rash or skin lesions [] Neurologic: Denies headache, focal weakness or sensory changes [] Endocrine: Denies polyuria or polydipsia [] All other systems were reviewed and found to be within normal limits, except as documented in this note. Allergies Allergies Allergies Coded Allergies Type Severity Reaction Last Updated Verified Sulfa (Sulfonamide Antibiotics) Allergy Intermediate 10/11/18 Yes citric acid Allergy Intermediate 10/11/18 Yes shellfish derived Allergy Intermediate 10/11/18 Yes I S O L A T I O N *CONTACT* Allergy Unknown 10/11/18 Yes Physical Exam Physical Exam PHYSICAL EXAM: CONSTITUTIONAL: Well developed, well nourished HEAD: normocephalic, atraumatic EENT: PERRL, EOMI. Conjunctivae normal color, sclerae non-icteric; moist mucous membranes. NECK: Supple, non-tender; no meningismus. LUNGS: Lungs CTA, breathing even and unlabored. Normal air movement. HEART: Regular rate and rhythm, no murmur CHEST: No deformity; non-tender ABDOMEN: The abdomen is soft, and non-tender, no masses or bruits. There is a suprapubic catheter in place. EXTREM: Normal ROM; no deformity, no calf tenderness. Normal pulses palpable in all extremities. There is no pedal edema. SKIN: No rash; no diaphoresis. There are chronic-appearing wounds on the right shoulder, and on the medial aspect of the ball of the right foot. There does not appear to be any acute infectious process of either wound. NEURO: Alert; normal speech and cognition; CN's grossly intact; strength grossly intact without focal deficit. BACK: No CVA TTP. Current Patient Data Vital Signs Vital Signs Date Time Temp Pulse Resp B/P (MAP) Pulse Ox O2 Delivery O2 Flow Rate FiO2 07/23/19 10:02 98.0 118 18 145/80 (101) 93 Room Air Lab Results Laboratory Tests Test 07/23/19 10:30 White Blood Count 14.4 x10^3/uL Red Blood Count 4.06 x10^6/uL Hemoglobin 12.3 g/dL Hematocrit 38.6 % Mean Corpuscular Volume 95 fL Mean Corpuscular Hemoglobin 30 pg Mean Corpuscular Hemoglobin Concent 32 g/dL Red Cell Distribution Width 14.8 % Platelet Count 225 x10^3/uL Neutrophils (%) (Auto) 84 % Lymphocytes (%) (Auto) 11 % Monocytes (%) (Auto) 4 % Eosinophils (%) (Auto) 1 % Basophils (%) (Auto) 1 % Neutrophils # (Auto) 12.2 x10^3uL Lymphocytes # (Auto) 1.5 x10^3/uL Monocytes # (Auto) 0.5 x10^3/uL Eosinophils # (Auto) 0.1 x10^3/uL Basophils # (Auto) 0.2 x10^3/uL Sodium Level 141 mmol/L Potassium Level 1.9 mmol/L Chloride Level 97 mmol/L Carbon Dioxide Level 30 mmol/L Anion Gap 14 Blood Urea Nitrogen 60 mg/dL Creatinine 2.1 mg/dL Estimated GFR (Cockcroft-Gault) 25.6 BUN/Creatinine Ratio 29 Glucose Level 223 mg/dL Calcium Level 8.1 mg/dL Magnesium Level 2.3 mg/dL Total Bilirubin 0.2 mg/dL Aspartate Amino Transf (AST/SGOT) 17 U/L Alanine Aminotransferase (ALT/SGPT) 24 U/L Alkaline Phosphatase 104 U/L Creatine Kinase 415 U/L Total Protein 6.9 g/dL Albumin 3.6 g/dL Albumin/Globulin Ratio 1.1 Current Medications Medications (Trade) Dose Ordered Sig/Mani Route PRN Reason Start Time Stop Time Status Last Admin Dose Admin Potassium Chloride 100 ml @ 50 mls/hr Q1H IV 07/23/19 11:00 07/23/19 12:59 UNV Potassium Chloride (Klor-Con) 40 meq 1X ONCE PO 07/23/19 11:00 07/23/19 11:01 UNV EKG EKG []Normal sinus rhythm a rate of 118 beats for minute, left axis deviation, incomplete right bundle-branch block, nonspecific ST/T changes are present diffusely. Radiology/Procedures Radiology/Procedures [] Course & Med Decision Making Course & Med Decision Making Pertinent Lab studies reviewed. (See chart for details) []11:10 AM:The patient's condition remains stable. I spoke with the hospitalist, who accepted the patient to the hospital for further evaluation and treatment. Dragon Disclaimer Dragon Disclaimer This electronic medical record was generated, in whole or in part, using a voice recognition dictation system. Departure Departure: Impression: Primary Impression: Hypokalemia Additional Impressions: Acute renal failure [place]'s disease Disposition: ADMITTED INPATIENT Admitting Physician: Lenin Simon Condition: STABLE Referrals: GABRIEL DO MD (PCP) Problem Qualifiers MI ALCANTAR MD Jul 23, 2019 10:20
[2019-07-23 10:47] LABS: BASO # 0.2 x10^3/uL (0.0-0.2); BASO % 1 % (0-3); EOS # 0.1 x10^3/uL (0.0-0.7); EOS % 1 % (0-3); HEMATOCRIT 38.6 % (36.0-47.0); HEMOGLOBIN 12.3 g/dL (12.0-15.5); LYMPH # 1.5 x10^3/uL (1.0-4.8); LYMPH % 11 % (24-48); MEAN CORPUSCULAR HEMOGLOBIN 30 pg (25-35); MEAN CORPUSCULAR HGB CONC 32 g/dL (31-37); MEAN CORPUSCULAR VOLUME 95 fL (79-100); MONO # 0.5 x10^3/uL (0.0-1.1); MONO % 4 % (0-9); NEUT # 12.2 x10^3uL (1.8-7.7); NEUT % 84 % (31-73); PLATELET COUNT 225 x10^3/uL (140-400); RED BLOOD COUNT 4.06 x10^6/uL (3.50-5.40); RED CELL DISTRIBUTION WIDTH 14.8 % (11.5-14.5); WHITE BLOOD COUNT 14.4 x10^3/uL (4.0-11.0)
[2019-07-23 10:59] LABS: ALBUMIN 3.6 g/dL (3.4-5.0); ALBUMIN/GLOBULIN RATIO 1.1 (1.0-1.7); CALCIUM 8.1 mg/dL (8.5-10.1); CREATININE 2.1 mg/dL (0.6-1.0); GFR 25.6; MAGNESIUM 2.3 mg/dL (1.8-2.4); TOTAL BILIRUBIN 0.2 mg/dL (0.2-1.0); TOTAL PROTEIN 6.9 g/dL (6.4-8.2)
[2019-07-23 11:00] LABS: POTASSIUM 1.9 mmol/L (3.5-5.1)
[2019-07-23] MEDS: POTASSIUM CHLORIDE 20MEQ 100 ML IV SCH ×2 (11:00→14:45)
[2019-07-23] MEDS ORDERED: IV NORMAL SALINE 1,000ML 1,000 ML IV ONE (11:15)
[2019-07-23] MEDS ORDERED: POTASSIUM CHLORIDE 20 MEQ TABLET.ER. PO ONE (11:30)
[2019-07-23 12:28] VITALS: BP 119/81
--- NOTE | 2019-07-23 12:30 | NUR ---
The patient, ROSANGELA FLORENCE, 43 y/o, F admitted by UMESH HOLCOMB MD, was given written information regarding hospital policies, unit procedures and contact persons. Valuables were checked and LEFT WITH PATIENT. PT IS COOPERATIVE UPON ARRIVAL. PT COMPLAINS OF PAIN TO RIGHT ARM AND IS REQUESTING PAIN MEDICATION. PT IS ALSO COMPLAINING OF CRAMPING IN BILATERAL LEGS. DR. HOLCOMB IS AT BEDSIDE WITH PT UPON ADMISSION. NEW ORDERS FOR ANTIBIOTICS, IV FLUIDS. WILL CTM.
--- NOTE | 2019-07-23 12:49 | EKG ---
[address] [address] Test Date: 2019-07-23 Test Time: 10:40:14 Pat Name: ROSANGELA FLORENCE Department: Room: Gender: F [employer]: : 1975 Requested By: MI ALCANTAR Order Number: [id number] Reading MD: Measurements Intervals [place] Rate: 118 P: -4 [place]: 110 QRS: -22 QRSD: 86 T: 51 QT: 358 QTc: 504 Interpretive Statements SINUS TACHYCARDIA COMPLEX(ES) WITH ABERRANT INTRAVENTRICULAR CONDUCTION INTERPOLATED ATRIAL PREMATURE COMPLEX(ES) LEFT ATRIAL ABNORMALITY LEFTWARD AXIS R-S TRANSITION ZONE IN V LEADS DISPLACED TO THE LEFT INCOMPLETE RIGHT BUNDLE BRANCH BLOCK ABNORMAL ECG RI6.01 No previous ECG available for comparison
--- NOTE | 2019-07-23 12:54 | NUR ---
Pt requesting to use 3 L NC PRN and states she has COPD.
[2019-07-23] MEDS ORDERED: PIP/TAZO PER PHARMACY MC PRN (13:30)
[2019-07-23] MEDS ORDERED: PHENAZOPYRIDINE 100 MG TABLET. PO SCH (14:00)
--- NOTE | 2019-07-23 14:06 | HP ---
ADMIT DATE: 07/23/2019 HISTORY OF PRESENT ILLNESS: The patient is a 43-year-old female patient who came to the Emergency Room complaining of muscle spasms and cramps started in her hands 2 days ago and last night she started in her feet. She also complained of wound in her outer aspect of the right arm and inner aspect of her right first metatarsophalangeal joint. She stated that over the last few days she has been having increasing muscle cramps similar to when she has hypokalemia. She stated that her fingers and ankles will lock up. She denied any other complaints, in particular denied chest pain, shortness of breath, dizziness, lightheadedness, numbness or weakness. Her right shoulder is still in a shoulder sling since she had surgery last April. She was evaluated in the Emergency Room and her lab work showed that she has severe profound hypokalemia with potassium of only 1.9 and she has also acute kidney injury. Creatinine is 2.1, BUN is 20. Her glucose was high at 223 and the patient was admitted with severe hypokalemia and acute kidney injury and multiple wounds. PAST MEDICAL HISTORY: Significant for bronchial asthma/chronic obstructive pulmonary disease. She had mild stroke with left sided weakness, hypertension, history of methicillin-resistant Staphylococcus aureus infection, adrenal insufficiency, gastroparesis, lumbar spinal stenosis. She does have history of C. diff colitis, pulmonary embolism, hemorrhoids, hiatal hernia, body image disorder, kidney stones, footdrop, anxiety, depression and tobacco use. PAST SURGICAL HISTORY: Significant for tonsillectomy, adenoidectomy, cholecystectomy, gastrectomy, multiple abdominal surgeries, history of G-tube placement, ventral hernia repair, cyst excision, hysterectomy and most recently right rotator cuff repair. ALLERGIES: SHE IS ALLERGIC TO SULFA DRUGS, CITRIC ACID AND SHELLFISH. FAMILY HISTORY: She has 2 brothers, both older and alive. Her older brother has diabetes and hypertension, the younger brother has hypertension. His diabetes was ameliorated after he underwent bypass surgery. Her father is still alive at the age of 73. He is known to have myocardial infarction and underwent 5-vessel coronary artery bypass surgery. Her mother is still alive at the age of 72 and has had myocardial infarction for which she underwent PCI and stent deployment. SOCIAL HISTORY: She is , has 1 son. She smokes half a pack a day. She does not drink alcohol or use recreational drugs. 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 MEDICATIONS: She is currently on following medications: Spironolactone 25 mg twice a day, aspirin 325 mg twice a day, acetaminophen with codeine 2 tablets every 6 hours, gabapentin 100 mg 3 times a day, topiramate 50 mg twice a day, duloxetine 60 mg twice a day, mirtazapine 30 mg at bedtime, trazodone 100 mg at bedtime, alprazolam 0.25 mg twice a day, potassium chloride she takes 40 mEq 4 times a day, furosemide she takes one to two tablets daily. She is on metolazone 5 mg once a day, Colace 100 mg twice a day, polyethylene glycol 17 grams daily, Protonix 40 mg once a day, fludrocortisone 300 mcg twice a day. She is on hydrocortisone 20 mg twice a day, phenazopyridine 100 mg 3 times a day, ascorbic acid 100 mg 3 times a day with meals. She is on multivitamin 1 tablet once a day, melatonin 5 mg at bedtime. REVIEW OF SYSTEMS: As per history of present illness. PHYSICAL EXAMINATION: GENERAL: On arrival to the Emergency Room, the patient looked well and was clearly in no apparent respiratory distress. No pallor, jaundice, cyanosis or thyromegaly. No jugular venous distention. No lower limb edema. VITAL SIGNS: Her heart rate was 118, blood pressure was 145/80, temperature was 98, respiratory rate was 18 and oxygen saturation was 93%. HEAD, EYES, EARS, NOSE AND THROAT: Showed normocephalic, atraumatic. NECK: Supple. CARDIAC: Normal first and second heart sounds with no gallop, rub or murmur. CHEST: Clear to auscultation. No crepitation or rhonchi. ABDOMEN: Distended, soft, nontender. NEUROLOGIC: She is awake, alert, responding appropriately. All cranial nerves intact. She moves her left upper extremity without difficulty. Her left upper extremity is still in a sling. She moves both lower extremities without difficulty. SKIN: She has wound on the outer aspect of the right arm. She has also what looks like an infection on the inner aspect of the first tarsometatarsal joint. LABORATORY DATA: Showed a white cell count of 14,400, hemoglobin 12.3, hematocrit 38, MCV 95, and platelet count of 225,000 with normal manual differential. Her chemistry showed a serum sodium 141, potassium 1.9, chloride 97, bicarbonate 30, anion gap of 14, BUN 60, creatinine 2.1, estimated GFR was 25 mL per minute. Her glucose was 223, calcium was 8.1, magnesium 2.3. Total bilirubin, AST, ALT, alkaline phosphatase were normal. Total protein was 6.9, albumin was 3.6. ASSESSMENT AND PLAN: In summary, this is a 43-year-old female patient who was admitted with profound hypokalemia, acute kidney injury with BUN and creatinine of 60 and 2.1. The patient has multiple other medical problems including [place]'s disease for which she is getting prednisone 20 mg twice a day. She has multiple medications that can cause this profound hypokalemia including metolazone, fludrocortisone and furosemide which I held. We will continue to replenish her potassium. Keep her on spironolactone. We will consult the wound care team, and for infection of the right foot, we will start her on IV Zyvox and Zosyn. We will consult the wound care team. UMESH HOLCOMB MD DR: RONALD/shayna JOB#: [id number] / [id number]
[2019-07-23] MEDS: ACETAMINOPHEN/CODEINE 300/30MG TABLET PO PRN ×2 (14:45→21:10)
[2019-07-23] MEDS: GABAPENTIN 100 MG CAPSULE. PO SCH ×2 (14:47→21:08)
[2019-07-23] MEDS: SPIRONOLACTONE 25 MG TABLET PO SCH (14:47)
[2019-07-23 15:21] LABS: CALCIUM 8.3 mg/dL (8.5-10.1); CREATININE 1.9 mg/dL (0.6-1.0); GFR 28.7
[2019-07-23 15:24] LABS: POTASSIUM 2.2 mmol/L (3.5-5.1)
[2019-07-23 16:00] VITALS: BP 112/73
[2019-07-23] MEDS ORDERED: ASCORBIC ACID 100 MG PO SCH (17:00)
[2019-07-23] MEDS: PIPERACILLIN/TAZOBACTAM 2.25 GM in IV NORMAL SALINE 50ML 50 ML IV SCH ×2 (17:01→22:40)
[2019-07-23] MEDS: POTASSIUM CHLORIDE 20 MEQ TABLET.ER. PO SCH ×2 (17:03→21:09)
[2019-07-23 19:00] VITALS: BP 120/76
[2019-07-23 21:00] VITALS: BP 118/75
[2019-07-23] MEDS: MULTIVITAMIN with MINERAL TABLET. PO SCH (21:00)
[2019-07-23] MEDS ORDERED: MIRTAZAPINE 30 MG TABLET PO SCH (21:00)
[2019-07-23] MEDS: HYDROCORTISONE 10 MG TABLET PO SCH (21:00)
[2019-07-23] MEDS ORDERED: DULoxetine HCL 60 MG CAPSULE.DR PO SCH (21:00)
[2019-07-23] MEDS: ALPRAZolam 0.25 MG TABLET PO SCH (21:08)
[2019-07-23] MEDS: LACTOBACILLUS RHAMNOSUS GG 1 CAPSULE. PO SCH (21:08)
[2019-07-23] MEDS: PHENAZOPYRIDINE 200 MG TABLET. PO SCH (21:08)
[2019-07-23] MEDS: TOPIRAMATE 25 MG TABLET. PO SCH (21:08)
[2019-07-23] MEDS: MELATONIN 3 MG TABLET PO SCH (21:09)
[2019-07-23] MEDS: ASPIRIN 325 MG TABLET PO SCH (21:09)
[2019-07-23] MEDS: DOCUSATE SODIUM 100 MG CAPSULE PO SCH (21:09)
[2019-07-23] MEDS: traZODone 100 MG TABLET. PO SCH (21:09)
[2019-07-24] VITALS (9 sets, daily range): BP systolic 93–110; BP diastolic 51–67
[2019-07-24 01:40] LABS: CALCIUM 8.3 mg/dL (8.5-10.1); CREATININE 1.3 mg/dL (0.6-1.0); GFR 44.5; POTASSIUM 3.4 mmol/L (3.5-5.1)
[2019-07-24] MEDS: PIPERACILLIN/TAZOBACTAM 2.25 GM in IV NORMAL SALINE 50ML 50 ML IV SCH ×4 (03:53→22:19)
[2019-07-24] MEDS: ACETAMINOPHEN/CODEINE 300/30MG TABLET PO PRN ×3 (05:43→21:10)
--- NOTE | 2019-07-24 08:34 | NUR ---
IP: Patient has hx MRSA in face wound, requires contact precautions until 2 negative results 7 days apart.
[2019-07-24] MEDS: DOCUSATE SODIUM 100 MG CAPSULE PO SCH ×2 (09:19→20:11)
[2019-07-24] MEDS: LACTOBACILLUS RHAMNOSUS GG 1 CAPSULE. PO SCH ×2 (09:19→20:11)
[2019-07-24] MEDS: PANTOPRAZOLE 40 MG TABLET. PO SCH (09:20)
[2019-07-24] MEDS: SPIRONOLACTONE 25 MG TABLET PO SCH ×2 (09:20→13:18)
[2019-07-24] MEDS: POLYETHYLENE GLYCOL 3350 17 GM PACKET. PO SCH (09:20)
[2019-07-24] MEDS: TOPIRAMATE 25 MG TABLET. PO SCH ×2 (09:20→20:12)
[2019-07-24] MEDS: ALPRAZolam 0.25 MG TABLET PO SCH ×2 (09:20→20:11)
[2019-07-24] MEDS: POTASSIUM CHLORIDE 20 MEQ TABLET.ER. PO SCH ×4 (09:20→20:11)
[2019-07-24] MEDS: MULTIVITAMIN with MINERAL TABLET. PO SCH ×2 (09:20→20:11)
[2019-07-24] MEDS: ASPIRIN 325 MG TABLET PO SCH ×2 (09:20→20:12)
[2019-07-24] MEDS: GABAPENTIN 100 MG CAPSULE. PO SCH ×3 (09:20→20:12)
[2019-07-24] MEDS: HYDROCORTISONE 10 MG TABLET PO SCH ×2 (09:21→20:14)
[2019-07-24] MEDS: PHENAZOPYRIDINE 200 MG TABLET. PO SCH ×3 (09:21→20:14)
[2019-07-24] MEDS: ENOXAPARIN 40 MG/0.4 ML SYRINGE. SQ SCH (13:20)
[2019-07-24] MEDS: ONDANSETRON ODT 4 MG TAB.RAPDIS PO PRN ×2 (14:15→21:10)
--- NOTE | 2019-07-24 17:37 | NUR ---
wound care patient seen per wound care consult. see wound assessment. patient has an unknown wound to the right medial foot, the area was cleaned and the wound is very tender to touch, the area was measured, no open area noted, a scabbed callous area noted, recommendations of Xeroform with a foam dressing, change every other day. patient also has an open blister to the right upper arm, the area was cleaned, measured and redressed with Xeroform with a Telfa dressing, recommendations of changing every other day. patient stated she had no other wound. wound care will continue to f/u for changes.
[2019-07-24] MEDS: MELATONIN 3 MG TABLET PO SCH (20:10)
[2019-07-24] MEDS: traZODone 100 MG TABLET. PO SCH (20:11)
[2019-07-25] VITALS (7 sets, daily range): BP systolic 92–100; BP diastolic 52–64
--- NOTE | 2019-07-25 01:15 | PN ---
DATE: 07/24/2019 SUBJECTIVE: The patient is resting, slightly propped up in bed, very sleepy, but arousable. Denied any complaint. Her potassium has risen from 1.9 to 3.4. Her creatinine is down from 2.1 to 1.3. PHYSICAL EXAMINATION: GENERAL: On examining her, she looked well and was clearly in no apparent respiratory distress. No pallor, jaundice, cyanosis, or thyromegaly. No jugular venous distension. No lower limb edema. VITAL SIGNS: Her heart rate was 96, blood pressure was 96/60, temperature was 97.8, respiratory rate was 18, and oxygen saturation was 92% on 3 liters of oxygen. The rest of clinical exam is stable. She has multiple wounds covered with dressing. Her intake over the last 24 hours was 3320, output was 2750. LABORATORY DATA: Her chemistry this morning showed a serum sodium of 140, potassium 3.4, chloride 102, bicarbonate 30, anion gap of 8, BUN 37, creatinine 1.3, estimated GFR was 44 mL per minute. Her glucose is 140, calcium was 8.3. ASSESSMENT: 1. Profound hypokalemia, improving. Her potassium has risen from 1.9 to 3.4, acute kidney injury, resolving. Her creatinine is down from 2.1 to 1.3. 2. 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 3. Bronchial asthma, chronic obstructive pulmonary disease, hypertension, gastroparesis, lumbar spinal stenosis. She does have a history of C. diff colitis, pulmonary embolism, hemorrhoids, hiatal hernia, body image distortion, kidney stones, footdrop, anxiety, depression and tobacco use. PLAN: To continue holding her fludrocortisone, torsemide and metolazone. We will continue with potassium supplement for now and continue with IV antibiotic. Await the result of the culture and sensitivity and continue with wound care. We have also consulted the wound care team to assist with her management. UMESH HOLCOMB MD DR: RONALD/shayna JOB#: [id number] / [id number]
[2019-07-25] MEDS: PIPERACILLIN/TAZOBACTAM 2.25 GM in IV NORMAL SALINE 50ML 50 ML IV SCH (04:06)
[2019-07-25] MEDS: ACETAMINOPHEN/CODEINE 300/30MG TABLET PO PRN ×4 (05:59→21:09)
[2019-07-25] MEDS: ONDANSETRON ODT 4 MG TAB.RAPDIS PO PRN (05:59)
[2019-07-25 06:55] LABS: HEMATOCRIT 33.5 % (36.0-47.0); HEMOGLOBIN 10.5 g/dL (12.0-15.5); RED BLOOD COUNT 3.44 x10^6/uL (3.50-5.40)
[2019-07-25 07:08] LABS: ALBUMIN 2.7 g/dL (3.4-5.0); ALBUMIN/GLOBULIN RATIO 0.9 (1.0-1.7); CALCIUM 8.2 mg/dL (8.5-10.1); CREATININE 0.9 mg/dL (0.6-1.0); POTASSIUM 3.5 mmol/L (3.5-5.1); TOTAL BILIRUBIN 0.3 mg/dL (0.2-1.0); TOTAL PROTEIN 5.6 g/dL (6.4-8.2)
[2019-07-25] MEDS: HYDROCORTISONE 10 MG TABLET PO SCH ×2 (09:00→21:00)
[2019-07-25] MEDS: TOPIRAMATE 25 MG TABLET. PO SCH ×2 (09:14→21:07)
[2019-07-25] MEDS: POTASSIUM CHLORIDE 20 MEQ TABLET.ER. PO SCH ×4 (09:14→21:08)
[2019-07-25] MEDS: ALPRAZolam 0.25 MG TABLET PO SCH ×2 (09:14→21:06)
[2019-07-25] MEDS: SPIRONOLACTONE 25 MG TABLET PO SCH ×2 (09:16→13:39)
[2019-07-25] MEDS: ASPIRIN 325 MG TABLET PO SCH ×2 (09:16→21:07)
[2019-07-25] MEDS: MULTIVITAMIN with MINERAL TABLET. PO SCH ×2 (09:16→21:08)
[2019-07-25] MEDS: GABAPENTIN 100 MG CAPSULE. PO SCH ×3 (09:16→21:08)
[2019-07-25] MEDS: PANTOPRAZOLE 40 MG TABLET. PO SCH (09:16)
[2019-07-25] MEDS: DOCUSATE SODIUM 100 MG CAPSULE PO SCH ×2 (09:16→21:08)
[2019-07-25] MEDS: POLYETHYLENE GLYCOL 3350 17 GM PACKET. PO SCH (09:16)
[2019-07-25] MEDS: PHENAZOPYRIDINE 200 MG TABLET. PO SCH ×3 (09:17→21:06)
[2019-07-25] MEDS: LACTOBACILLUS RHAMNOSUS GG 1 CAPSULE. PO SCH ×2 (10:20→21:08)
--- NOTE | 2019-07-25 10:34 | PDOC ---
SUBJECTIVE: Pt consulted for wound care per PCP, Dr Simon. Pt with Addisons disease and is on daily steroids with hx of poor wound healing. Pt admitted to [facility] d/t hypokalemia and is currently in ICU. Pt with wounds to her right upper arm and right foot. Patient states the right upper arm wound occurred secondary to a vitamin B12 shot given in April. The patient states the shot location blistered and then the wound occurred. Patient denies drainage or odor from the affected area. Patient states the area is very tender to palpation and cleansing. Patient has been keeping the area covered with a Band-Aid home. Patient states that the right foot wound occurred secondary to a callus that split. The wound was seen by Dr. Morocho and antibiotics were administered secondary to pussy drainage. Patient states that the drainage resolved and the wound callused over. Patient concerned as the area is very tender to touch and is affecting her walking. OBJECTIVE: Problems: Problems Medical Problems: (1) Acute renal failure Status: Acute (2) [place]'s disease Status: Chronic (3) Hypokalemia Status: Acute Patient awake and alert 43-year-old female in no apparent distress. Patient is a good historian and is pleasant conversation. Vital signs are stable and patient is afebrile. Respirations are even and unlabored. Patient on room air not requiring supplemental oxygen. Abdomen soft nondistended and nontender to palpation. Skin is warm dry and pink. Patient with superficial wound of her right upper arm. Wound bed pink and moist with thin slough. Edges attached and non-rolling. Surrounding tissue without edema or erythema. Minimal serous sanguinous drainage present. No odor following cleansing. The medial right foot, first distal metatarsal, with thickened callus. No surrounding erythema or edema present. Area very tender to palpation. Site numbed with topical lidocaine for ample period of time. Attempted to debride callus with sterile curette. Patient unable to tolerate painful symptoms, therefore debridement discontinued. Vital Signs/I&O: Vital Signs Date Time Temp Pulse Resp B/P (MAP) Pulse Ox O2 Delivery O2 Flow Rate FiO2 07/25/19 08:00 Nasal Cannula 3.0 07/25/19 08:00 98.1 86 18 100/64 (13) 94 I & O 07/24/19 07/24/19 07/25/19 15:00 23:00 07:00 Intake Total 1290 ml 1790 ml 0 ml Output Total 500 ml 650 ml 1400 ml Balance 790 ml 1140 ml -1400 ml Labs: Laboratory Tests Test 07/25/19 05:45 White Blood Count 10.0 x10^3/uL (4.0-11.0) Red Blood Count 3.44 x10^6/uL (3.50-5.40) L Hemoglobin 10.5 g/dL (12.0-15.5) L Hematocrit 33.5 % (36.0-47.0) L Mean Corpuscular Volume 98 fL (79-100) Mean Corpuscular Hemoglobin 31 pg (25-35) Mean Corpuscular Hemoglobin Concent 31 g/dL (31-37) Red Cell Distribution Width 15.0 % (11.5-14.5) H Platelet Count 190 x10^3/uL (140-400) Sodium Level 141 mmol/L (136-145) Potassium Level 3.5 mmol/L (3.5-5.1) Chloride Level 106 mmol/L (98-107) Carbon Dioxide Level 28 mmol/L (21-32) Anion Gap 7 (6-14) Blood Urea Nitrogen 23 mg/dL (7-20) H Creatinine 0.9 mg/dL (0.6-1.0) Estimated GFR (Cockcroft-Gault) 68.0 BUN/Creatinine Ratio 26 (6-20) H Glucose Level 96 mg/dL (70-99) Calcium Level 8.2 mg/dL (8.5-10.1) L Total Bilirubin 0.3 mg/dL (0.2-1.0) Aspartate Amino Transferase (AST) 16 U/L (15-37) Alanine Aminotransferase (ALT) 29 U/L (14-59) Alkaline Phosphatase 87 U/L (46-116) Total Protein 5.6 g/dL (6.4-8.2) L Albumin 2.7 g/dL (3.4-5.0) L Albumin/Globulin Ratio 0.9 (1.0-1.7) L PLAN: Wound plan: 1) superficial wound to upper right arm with poor wound healing (secondary to vitamin B12 injection in April 2019.) - Poor wound healing can be attributed to 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 - Wound at this time does not appear to be infected. - Cleanse and pat dry. Apply skin prep to surrounding tissue. Cover with Hydrofera Blue ready and secure with bordered gauze. Change every 3 days or when necessary if dressing loose or saturated. - Upon discharge, would recommend that the patient continue to be followed by wound care on an outpatient basis secondary to her underlying autoimmune disorder and poor wound healing. 2) Painful callus of the right foot without known diabetes - Attempted bedside debridement with topical lidocaine, procedure discontinued secondary to painful symptoms. - Suspicious for underlying foreign body. - Recommend area be covered with foam adhesive for protection. - Obtain soft tissue sonogram while inpatient to r/o foreign body - Recommend follow-up with Dr. Morocho, status post hospitalization, for possible I&D. NOELLE JIMENES APRN Jul 25, 2019 10:34
[2019-07-25] MEDS: PIPERACILLIN/TAZOBACTAM 4.5 GM in IV NORMAL SALINE 50ML 50 ML IV SCH ×2 (10:50→17:00)
[2019-07-25] MEDS: ENOXAPARIN 40 MG/0.4 ML SYRINGE. SQ SCH (13:39)
--- NOTE | 2019-07-25 17:17 | NUR ---
PT UP TO CHAIR TODAY AND TOLERATING MEALS BETTER. CHANGED TO CHOPPED DIET PT HAS POOR DENTITION. PT PROGRESSING TOWARDS GOALS.
[2019-07-25] MEDS: FLUDROCORTISONE 0.1 MG TABLET PO SCH (21:06)
[2019-07-25] MEDS: MELATONIN 3 MG TABLET PO SCH (21:07)
[2019-07-25] MEDS: traZODone 100 MG TABLET. PO SCH (21:08)
--- NOTE | 2019-07-25 23:36 | PN ---
DATE: 07/25/2019 SUBJECTIVE: The patient is sitting comfortably in her chair, in no apparent distress. She is definitely more awake, alert, feeling generally much improved. Her electrolytes, particularly potassium is within normal range and has risen from 1.9 to 3.5. Her BUN came down from 60 to 23 and creatinine from 2.1 to 0.9. She has wounds for which she was seen by the wound care team. PHYSICAL EXAMINATION: GENERAL: When I saw her this afternoon, she looked well and was clearly in no apparent respiratory distress, slightly pale, but no jaundice, cyanosis or thyromegaly. No jugular venous distention. No lower limb edema. VITAL SIGNS: Her heart rate was 105, blood pressure was 97/62, temperature was 98.1, respiratory rate was 17 and oxygen saturation was 94% on 3 liters of oxygen. HEAD, EYES, EARS, NOSE AND THROAT: Showed normocephalic, atraumatic. NECK: Supple. HEART: Showed normal first and second heart sounds. No gallop, rub or murmur. CHEST: Clear to auscultation. No crepitation or rhonchi. ABDOMEN: Distended, soft, nontender. No guarding or rigidity. No organomegaly. All hernial orifices intact. Bowel sounds normal. NEUROLOGIC: She is definitely more awake, alert, responding appropriately. All cranial nerves intact. EXTREMITIES: Her right upper extremity continues to be in a sling. She is able to walk with a walker. Her intake over the last 24 hours was 3300, output was 2750. LABORATORY DATA: As of this morning, her white cell count was 10,000, hemoglobin 10.5, hematocrit 33.5, MCV 98 and platelet count of 190,000. Her chemistry showed a serum sodium 141, potassium 3.5, chloride 100, bicarbonate 28, anion gap of 7, BUN 23, creatinine 0.9, estimated GFR was 68 mL per minute. Her glucose was 96 and calcium was 8.2. Total bilirubin, AST, ALT, alkaline phosphatase were normal. Total protein was 5.6, albumin was 2.7. ASSESSMENT: 1. Profound hypokalemia, improving. Her potassium has risen from 1.9 to 3.5. 2. Acute kidney injury, resolving. Her creatinine is down from 2.1 to 0.9. 3. She has multiple other medical problems including: A. [place]'s disease for which she is on hydrocortisone 20 mg twice a day. She is also on fludrocortisone 300 mcg twice a day. 4. Bronchial asthma. 5. Chronic obstructive pulmonary disease. 6. Hypertension. 7. Gastroparesis. 8. Lumbar spinal stenosis. 9. She has a history of Clostridium difficile colitis, pulmonary embolism, hemorrhoids, hiatal hernia, body image distortion, kidney stones, foot drop, anxiety, depression and tobacco use. PLAN: My plan is to continue with potassium supplementation and continue with IV antibiotic for now, continue with DVT prophylaxis, and I spoke to the patient to perhaps cut down on her fludrocortisone and metolazone to 200 mcg twice a day and also metolazone to 2.5 mg once a day and decide on further management accordingly. UMESH HOLCOMB MD DR: RONALD/shayna JOB#: [id number] / [id number]
[2019-07-26] MEDS: PIPERACILLIN/TAZOBACTAM 4.5 GM in IV NORMAL SALINE 50ML 50 ML IV SCH ×2 (01:47→09:46)
--- NOTE | 2019-07-26 05:46 | NUR ---
Shift Note: Pt a/o x4, VSS, chronic pain noted (tylenol#3 given at HS), pt able to sleep throughout the night, pt did have a very large bowel movement prior to HS (she is chronically constipated and had not gone for several days). No c/o n/v at this time. Dressings to right shoulder and right foot are CDI at this time.
[2019-07-26] MEDS: ACETAMINOPHEN/CODEINE 300/30MG TABLET PO PRN ×3 (05:55→17:55)
[2019-07-26 06:20] VITALS: BP 96/62
[2019-07-26 07:53] LABS: HEMATOCRIT 33.6 % (36.0-47.0); HEMOGLOBIN 10.5 g/dL (12.0-15.5); RED BLOOD COUNT 3.47 x10^6/uL (3.50-5.40); RED CELL DISTRIBUTION WIDTH 15.3 % (11.5-14.5); WHITE BLOOD COUNT 8.3 x10^3/uL (4.0-11.0)
[2019-07-26 08:01] LABS: CALCIUM 8.1 mg/dL (8.5-10.1); CREATININE 0.9 mg/dL (0.6-1.0); POTASSIUM 3.5 mmol/L (3.5-5.1)
[2019-07-26] MEDS: LACTOBACILLUS RHAMNOSUS GG 1 CAPSULE. PO SCH (08:10)
[2019-07-26] MEDS: ASPIRIN 325 MG TABLET PO SCH (08:10)
[2019-07-26] MEDS: PANTOPRAZOLE 40 MG TABLET. PO SCH (08:11)
[2019-07-26] MEDS: TOPIRAMATE 25 MG TABLET. PO SCH (08:11)
[2019-07-26] MEDS: DOCUSATE SODIUM 100 MG CAPSULE PO SCH (08:11)
[2019-07-26] MEDS: SPIRONOLACTONE 25 MG TABLET PO SCH ×2 (08:11→13:01)
[2019-07-26] MEDS: POLYETHYLENE GLYCOL 3350 17 GM PACKET. PO SCH (08:11)
[2019-07-26] MEDS: HYDROCORTISONE 10 MG TABLET PO SCH (08:12)
[2019-07-26] MEDS: POTASSIUM CHLORIDE 20 MEQ TABLET.ER. PO SCH ×3 (08:12→17:55)
[2019-07-26] MEDS: MULTIVITAMIN with MINERAL TABLET. PO SCH (08:12)
[2019-07-26] MEDS: ALPRAZolam 0.25 MG TABLET PO SCH (08:12)
[2019-07-26] MEDS: FLUDROCORTISONE 0.1 MG TABLET PO SCH (08:13)
[2019-07-26] MEDS: PHENAZOPYRIDINE 200 MG TABLET. PO SCH ×2 (08:13→13:01)
[2019-07-26] MEDS: GABAPENTIN 100 MG CAPSULE. PO SCH ×2 (08:13→13:01)
--- NOTE | 2019-07-26 08:18 | NUR ---
IP: patient has 2 negative MRSA screen, no longer requires contact precautions.
[2019-07-26] MEDS: ONDANSETRON ODT 4 MG TAB.RAPDIS PO PRN (08:27)
[2019-07-26] MEDS ORDERED: metOLazone 2.5 MG TABLET PO SCH (09:00)
[2019-07-26 10:40] VITALS: BP 112/63
[2019-07-26] MEDS: ENOXAPARIN 40 MG/0.4 ML SYRINGE. SQ SCH (11:26)
[2019-07-26 15:53] VITALS: BP 111/67
[2019-07-26] MEDS ORDERED: METO2.5T PO (17:06)
[2019-07-26] MEDS ORDERED: FLUD0.1T PO (17:06)
[2019-07-26] MEDS ORDERED: HEPARIN PF 500 UNIT/5 ML DISP.SYRIN. IVP ONE (17:15)
--- NOTE | 2019-07-26 17:15 | DISCH ---
HOME HEALTH DISCHARGE/MEDS DISCHARGE INFORMATION: Discharge Date: Jul 26, 2019 Final Diagnosis: Problems Medical Problems: (1) Acute renal failure Status: Acute (2) [place]'s disease Status: Chronic (3) Hypokalemia Status: Acute Condition on Discharge: Stable CODE STATUS: Code Status: Full HOME HEALTH: Face to Face: I certify this patient is under my care and that I, or a nurse practitioner or physician's assistant reading teacher working with me, had a face to face encounter that meets the physician face to face encounter requirements with this patient on 07/26/19 Medical Condition(s): Other Residential For: Admin/Educate Injections Physical Therapy For: Evalulation/Treatment Occupational Therapy For: Evaluation/Treatment Homebound Status Met By: Poor coordination w/ amb. POST DISCHARGE ORDERS: Activity Instructions for Disc: Resume previous activity DIET AFTER DISCHARGE: Cardiac CERTIFICATION STATEMENT: Certification Statement: Based on the above finding, I certify that this patient is confined to the home and needs intermittent correction care, physical therapy and/or speech therapy, or continues to need occupational therapy.~ This patient is under my care, and I have initiated the establishment of the plan of care.~ This patient will be followed by myself or a community physician who will periodically review the plan of care. DISCHARGE MEDICATIONS: Home Meds Active Scripts Fludrocortisone Acetate (FLUDROCORTISONE ACETATE) 0.1 Mg Tablet, 2 TAB PO BID for hyperkalemia for 30 Days, #120 TAB 1 Refill Prov:UMESH HOLCOMB MD 07/26/19 Metolazone (METOLAZONE) 2.5 Mg Tablet, 2.5 MG PO DAILY for chf for 30 Days, #30 TAB Prov:UMESH HOLCOMB MD 07/26/19 Polyethylene Glycol 3350 (MIRALAX) 17 Gm Powd.pack, 1 PACKET PO DAILY for constipation for 2 Days, #2 PACKET 0 Refills dissolve in water Prov:UMESH HOLCOMB MD 06/01/19 Docusate Sodium (COLACE) 100 Mg Capsule, 1 CAP PO BID for constipation for 30 Days, #60 CAP 0 Refills Prov:UMESH HOLCOMB MD 06/01/19 Potassium Chloride (KLOR-CON M20) 20 Meq Tab.er.prt, 2 TAB PO QID for hypokalemia for 30 Days, #240 TAB 0 Refills Prov:UMESH HOLCOMB MD 06/01/19 Reported Medications Ascorbic Acid (VITAMIN C) 100 Mg Tablet, 100 MG PO TIDWMEALS for SUPPLEMENT, TAB 05/30/19 Phenazopyridine Hcl (PHENAZOPYRIDINE HCL) 100 Mg Tablet, 200 MG PO TID for urinary pain 05/30/19 Alprazolam (ALPRAZOLAM) 0.25 Mg Tablet, 0.25 MG PO BID for ANXIETY 05/30/19 Torsemide (TORSEMIDE) 20 Mg Tablet, 1-2 TAB PO PRN DAILY PRN for SWELLING 05/30/19 Acetaminophen With Codeine (TYLENOL WITH CODEINE #3 TABLET) 1 Each Tablet, 2 TAB PO PRN Q6HRS PRN for PAIN, #30 TAB 01/20/19 Melatonin (MELATONIN) 3 Mg Tablet, 5 MG PO QHS for insomnia, TAB 01/20/19 Aspirin (ASPIRIN) 325 Mg Tablet, 325 MG PO BID for heart health, TAB 01/20/19 Hydrocortisone (HYDROCORTISONE) 5 Mg Tablet, 20 MG PO BID for COPD 01/20/19 Mirtazapine (MIRTAZAPINE) 30 Mg Tablet, 1 TAB PO QHS for MOOD DISORDER 10/10/18 Trazodone Hcl (TRAZODONE HCL) 100 Mg Tablet, 1 TAB PO QHS for SLEEP AID 10/10/18 Pantoprazole Sodium (PANTOPRAZOLE SODIUM) 40 Mg Tablet.dr, 1 TAB PO DAILYAC for HEARTBURN 10/10/18 Duloxetine Hcl (CYMBALTA) 60 Mg Capsule.dr, 1 CAP PO BID for DEPRESSION 10/10/18 Gabapentin (GABAPENTIN ) 100 Mg Capsule, 100 MG PO TID for NERVE PAIN 10/10/18 Spironolactone (SPIRONOLACTONE) 25 Mg Tablet, 1 TAB PO BID92 for FLUID RETENTION 10/10/18 Multivitamin (MULTIVITAMINS) 1 Each Tablet, 1 TAB PO BID for SUPPLEMENT 10/10/18 Topiramate (TOPIRAMATE) 50 Mg Tablet, 1 TAB PO BID for MIGRAINES 10/10/18 Discontinued Reported Medications Fludrocortisone Acetate (FLUDROCORTISONE ACETATE) 0.1 Mg Tablet, 3 TAB PO BID for GERARDO'S 05/30/19 Metolazone (METOLAZONE) 5 Mg Tablet, 5 MG PO DAILY for SWELLING 05/30/19 Discontinued Scripts Cefdinir (CEFDINIR) 300 Mg Capsule, 1 CAP PO BID for UTI for 14 Days, #28 CAP Prov:CHAPARRO NUNEZ MD 07/14/19 UMESH HOLCOMB MD Jul 26, 2019 17:15
--- NOTE | 2019-07-26 18:15 | NUR ---
Patient is discharging. Agrees with discharge plan. Discharging home with home health. Edison cath packed with 500 units of heparin, then de-accessed. All belongings with patient. Pt taken home by POV.
--- NOTE | 2019-07-26 20:20 | DS ---
DATE OF DISCHARGE: 07/26/2019 HOSPITAL COURSE: The patient is resting, slightly propped up in bed, in no apparent distress. She is definitely more awake, alert. Her potassium has normalized and stayed stable from 1.9 up to 3.5 and her kidney function has improved back to baseline. Her BUN came down from 60-17 and creatinine came down from 2.1-0.9 and therefore, a decision was made to discharge her home with home health. I did recommend that she should cut down on her fludrocortisone and metolazone as she has been admitted here on numerous occasions with severe profound hypokalemia. PHYSICAL EXAMINATION: GENERAL: When I saw her this afternoon, she looked well and was clearly in no apparent respiratory distress, slightly pale, but no jaundice, cyanosis or thyromegaly. No jugular venous distention. No limb edema. VITAL SIGNS: Her heart rate was at 98, blood pressure 111/67, temperature was 98, respiratory rate was 14 and oxygen saturation was 95% on 3 liters of oxygen. HEAD, EYES, EARS, NOSE AND THROAT: Showed normocephalic, atraumatic. NECK: Supple. CARDIAC: Normal first and second heart sounds. No gallop or murmur. CHEST: Clear to auscultation. No crepitation or rhonchi. ABDOMEN: Distended, soft, nontender. No guarding or rigidity. No organomegaly. All hernial orifices intact. Bowel sounds normal. NEUROLOGIC: She is awake, alert, responding appropriately. All cranial nerves intact. She moves her upper extremities, left too much good extent than right upper extremity. She has continued to be in a sling. Her intake was 3100, output was 2550. LABORATORY DATA: Her lab work this morning showed a white cell count of 8300, hemoglobin 10.5, hematocrit 33, MCV 97, and platelet count 287,000. Her chemistry showed a serum sodium 141, potassium 3.5, chloride 106, bicarbonate 27, anion gap of 8, BUN 17, creatinine 0.9, estimated GFR was 68 mL per minute. Her glucose was 88, calcium was 8.1. DISCHARGE MEDICATIONS: The patient was discharged home to continue on a reduced dose of fludrocortisone at 200 mcg twice a day and cut down metolazone to 2.5 mg once a day. Meanwhile, she should continue on all other medication. FINAL DISCHARGE DIAGNOSES: 1. Profound hypokalemia, improved. Her potassium has risen from 1.9-3.5 and remained stable. 2. Acute kidney injury, improved. Her creatinine came down from 2.1-0.93. 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 She is also on fludrocortisone 300 mcg twice a day, which is excessive and probably because of her severe hypokalemia. Therefore, I cut it down to 200 mcg twice a day. 3. Bronchial asthma. 4. Chronic obstructive pulmonary disease. 5. Hypertension. 6. Gastroparesis. 7. Lumbar spinal stenosis. 8. She has a history of Clostridium difficile colitis, pulmonary embolism, hiatal hernia, body image distortion, kidney stones, footdrop, anxiety and depression as well as tobacco abuse. The patient will be discharged home with home health to monitor her electrolytes and to continue with physical and occupational therapy. UMESH HOLCOMB MD DR: RONALD/shayna JOB#: [id number] / [id number]
== END 2019-07-26 18:18 | disposition home health service (06) | DRG 640 ==
LOC: ER 09:50 → ICU 12:20
PROVIDERS: ADMIT Internal Medicine; ATTEND Internal Medicine
PROC: 0YJ Anatomical Regions, Lower Extremities, Inspection (ICD-10-PCS; principal; 2019-07-23)
DX: E87.6 Hypokalemia (principal); N17.0 Acute kidney failure with tubular necrosis; E27.1 Primary adrenocortical insufficiency; I69.354 Hemiplegia and hemiparesis following cerebral infarction affecting left non-dominant side; F17.210 Nicotine dependence, cigarettes, uncomplicated; I11.0 Hypertensive heart disease with heart failure; I50.9 Heart failure, unspecified; J44.9 Chronic obstructive pulmonary disease, unspecified; K31.84 Gastroparesis; M48.061 Spinal stenosis, lumbar region without neurogenic claudication; F32.9 Major depressive disorder, single episode, unspecified; F41.9 Anxiety disorder, unspecified; L08.9 Local infection of the skin and subcutaneous tissue, unspecified; Z79.52 Long term (current) use of systemic steroids; Z82.49 Family history of ischemic heart disease and other diseases of the circulatory system; Z83.3 Family history of diabetes mellitus; Z86.14 Personal history of Methicillin resistant Staphylococcus aureus infection; Z86.19 Personal history of other infectious and parasitic diseases; Z86.711 Personal history of pulmonary embolism; Z87.442 Personal history of urinary calculi; Z90.710 Acquired absence of both cervix and uterus; Z93.1 Gastrostomy status; Z90.49 Acquired absence of other specified parts of digestive tract
CPT/HCPCS: 36415; 80048; 80053; 82550; 83735; 84484; 85025; 85027; 87641; 93005; 96360; J1650; J2020; J2543; J3480; Q0162; 97110; 97116; 99285-25; J7030

== ENCOUNTER → 2019-08-24 | Outpatient (CLI) | payer OTHER, MEDICAID ==
[2019-07-26 15:53] VITALS: BP 111/67
[~2019-08-24] MED LIST changes: +MELA3TAB4 PO; -MELA3TAB56 PO; +METO2.5T PO
--- NOTE | 2019-08-24 09:09 | RAD ---
Left hand 3 views. HISTORY: Left hand pain 3 views were taken of the left hand. There is not evidence of an acute fracture. There is no acute osseous abnormality. A bony destructive process or erosive process is not identified. There is minimal hypertrophic change at the anterior margin of the middle phalanx of the fifth finger at the proximal interphalangeal joint probably an old injury. There is a tiny bone density at the proximal end of the proximal phalanx of the fifth finger on the lateral view posteriorly which could be dystrophic calcification or a small avulsion or an old injury. IMPRESSION: 1. Changes at the fifth finger possible old injury versus a small acute avulsion. 2. No other acute osseous abnormality left hand. Electronically signed by: Brando Reed MD (08/24/2019 9:06 AM) [id number]
== END | disposition home or self-care (01) ==
LOC: DXRAD 08:15
PROVIDERS: ATTEND Family Medicine
DX: S69.92XS Unspecified injury of left wrist, hand and finger(s), sequela (principal); X58.XXXS Exposure to other specified factors, sequela
CPT/HCPCS: 73130

== ENCOUNTER 2019-09-14 15:53 | Emergency (ER) | payer OTHER, MEDICAID ==
[~2019-09-14] VITALS: Ht 152.4 cm; Wt 94.0 kg
[2019-09-14 16:39] VITALS: BP 133/89
[2019-09-14] MEDS ORDERED: ACETAMINOPHEN 325 MG TABLET PO ONE (16:45)
[2019-09-14 16:53] LABS: BASO # 0.1 x10^3/uL (0.0-0.2); BASO % 1 % (0-3); EOS # 0.1 x10^3/uL (0.0-0.7); EOS % 1 % (0-3); HEMATOCRIT 32.2 % (36.0-47.0); HEMOGLOBIN 10.1 g/dL (12.0-15.5); LYMPH % 10 % (24-48); MEAN CORPUSCULAR HEMOGLOBIN 33 pg (25-35); MEAN CORPUSCULAR HGB CONC 31 g/dL (31-37); MEAN CORPUSCULAR VOLUME 106 fL (79-100); MONO # 0.3 x10^3/uL (0.0-1.1); MONO % 3 % (0-9); NEUT # 8.2 x10^3uL (1.8-7.7); NEUT % 85 % (31-73); PLATELET COUNT 187 x10^3/uL (140-400); RED BLOOD COUNT 3.05 x10^6/uL (3.50-5.40); RED CELL DISTRIBUTION WIDTH 16.1 % (11.5-14.5); WHITE BLOOD COUNT 9.6 x10^3/uL (4.0-11.0)
[2019-09-14 17:01] LABS: CALCIUM 9.1 mg/dL (8.5-10.1); CREATININE 1.3 mg/dL (0.6-1.0); GFR 44.5; POTASSIUM 4.5 mmol/L (3.5-5.1)
[2019-09-14 17:09] LABS: ALBUMIN 3.3 g/dL (3.4-5.0); ALBUMIN/GLOBULIN RATIO 1.2 (1.0-1.7); TOTAL BILIRUBIN 0.3 mg/dL (0.2-1.0); TOTAL PROTEIN 6.1 g/dL (6.4-8.2)
--- NOTE | 2019-09-14 18:09 | PHYS DOC ---
Past History Past Medical History: No Pertinent History Additional Past Medical Histor: adrenal insufficiency, spinal stenosis, pulmonary embolism Past Surgical History: No Surgical History Additional Past Surgical Histo: over 20 abd surgeries Alcohol Use: None Drug Use: None Adult General Chief Complaint Chief Complaint: MUSCLE SPASM/CRAMP HPI HPI Patient is a 43-year-old female with history of spinal stenosis, chronic neuropathy presents with myalgias and cramping of lower extremities. Patient states she frequently has cramping associated with low potassium stay. She is compliant with her medications. She denies increased diuretic use. Denies extremity weakness, loss of sensation. Reports poorly controlled chronic pain. [] Review of Systems Review of Systems Review symptoms as per history of present illness. All other review symptoms are negative. All other systems were reviewed and found to be within normal limits, except as documented in this note. Current Medications Current Medications Current Medications Medications (Trade) Dose Ordered Sig/Mani Start Time Stop Time Status Last Admin Dose Admin Acetaminophen (Tylenol) 650 mg 1X ONCE 09/14/19 16:45 09/14/19 16:46 DC 09/14/19 17:10 650 MG Allergies Allergies Allergies Coded Allergies Type Severity Reaction Last Updated Verified Sulfa (Sulfonamide Antibiotics) Allergy Intermediate 10/11/18 Yes citric acid Allergy Intermediate 10/11/18 Yes shellfish derived Allergy Intermediate 10/11/18 Yes Physical Exam Physical Exam Constitutional: Well developed, well nourished, no acute distress, non-toxic appearance. [] HENT: Normocephalic, atraumatic, bilateral external ears normal, oropharynx moist, nose normal. [] Eyes: PERRLA, EOMI, conjunctiva normal. [] Neck: Normal range of motion, no tenderness, supple. [] Cardiovascular:Heart rate regular rhythm, no murmur [] Lungs & Thorax: Bilateral breath sounds clear to auscultation [] Abdomen: Bowel sounds normal, soft, no tenderness. [] Skin: Warm, dry, no erythema, no rash. [] Back: No tenderness. [] Extremities: No tenderness, , no edema. [] Neurologic: Alert and oriented X 3, normal motor function, normal sensory function, no focal deficits noted. [] Psychologic: Affect normal, judgement normal, mood normal. [] Current Patient Data Vital Signs Vital Signs Date Time Temp Pulse Resp B/P (MAP) Pulse Ox O2 Delivery O2 Flow Rate FiO2 09/14/19 16:39 99.2 121 20 133/89 (104) 95 Room Air Lab Results Laboratory Tests Test 09/14/19 16:34 White Blood Count 9.6 x10^3/uL (4.0-11.0) Red Blood Count 3.05 x10^6/uL (3.50-5.40) L Hemoglobin 10.1 g/dL (12.0-15.5) L Hematocrit 32.2 % (36.0-47.0) L Mean Corpuscular Volume 106 fL (79-100) H Mean Corpuscular Hemoglobin 33 pg (25-35) Mean Corpuscular Hemoglobin Concent 31 g/dL (31-37) Red Cell Distribution Width 16.1 % (11.5-14.5) H Platelet Count 187 x10^3/uL (140-400) Neutrophils (%) (Auto) 85 % (31-73) H Lymphocytes (%) (Auto) 10 % (24-48) L Monocytes (%) (Auto) 3 % (0-9) Eosinophils (%) (Auto) 1 % (0-3) Basophils (%) (Auto) 1 % (0-3) Neutrophils # (Auto) 8.2 x10^3uL (1.8-7.7) H Lymphocytes # (Auto) 1.0 x10^3/uL (1.0-4.8) Monocytes # (Auto) 0.3 x10^3/uL (0.0-1.1) Eosinophils # (Auto) 0.1 x10^3/uL (0.0-0.7) Basophils # (Auto) 0.1 x10^3/uL (0.0-0.2) Sodium Level 143 mmol/L (136-145) Potassium Level 4.5 mmol/L (3.5-5.1) Chloride Level 108 mmol/L (98-107) H Carbon Dioxide Level 29 mmol/L (21-32) Anion Gap 6 (6-14) Blood Urea Nitrogen 24 mg/dL (7-20) H Creatinine 1.3 mg/dL (0.6-1.0) H Estimated GFR (Cockcroft-Gault) 44.5 BUN/Creatinine Ratio 18 (6-20) Glucose Level 115 mg/dL (70-99) H Calcium Level 9.1 mg/dL (8.5-10.1) Magnesium Level 2.2 mg/dL (1.8-2.4) Total Bilirubin 0.3 mg/dL (0.2-1.0) Aspartate Amino Transferase (AST) 18 U/L (15-37) Alanine Aminotransferase (ALT) 22 U/L (14-59) Alkaline Phosphatase 78 U/L (46-116) Total Protein 6.1 g/dL (6.4-8.2) L Albumin 3.3 g/dL (3.4-5.0) L Albumin/Globulin Ratio 1.2 (1.0-1.7) Lipase 408 U/L (73-393) H EKG EKG [] Radiology/Procedures Radiology/Procedures [] Course & Med Decision Making Course & Med Decision Making Pertinent Labs and Imaging studies reviewed. (See chart for details) [Lab reviewed. Recommendations are for home with management of chronic pain.] Dragon Disclaimer Dragon Disclaimer This electronic medical record was generated, in whole or in part, using a voice recognition dictation system. Departure Departure: Impression: Primary Impression: Chronic pain Additional Impression: Cramps of lower extremity Disposition: HOME, SELF-CARE Condition: STABLE Referrals: GABRIEL DO MD (PCP) Problem Qualifiers RICHARD BRITO DO Sep 14, 2019 18:09
== END 2019-09-14 18:35 | disposition home or self-care (01) ==
LOC: ER 15:53
DX: G89.29 Other chronic pain (principal); R25.2 Cramp and spasm; Z86.711 Personal history of pulmonary embolism; Z88.2 Allergy status to sulfonamides; Z91.040 Latex allergy status; Z91.018 Allergy to other foods
CPT/HCPCS: 36415; 80053; 83690; 83735; 85025; 99284

== ENCOUNTER → 2019-10-26 | Outpatient (CLI) | payer OTHER, MEDICAID ==
[~2019-10-26] MED LIST changes: +HYDR5TAB11 PO; -HYDR5TAB3 PO
--- NOTE | 2019-10-26 09:47 | RAD ---
SHOULDER 2+V RIGHT 10/26/2019 12:00 AM INDICATION: Right shoulder pain COMPARISON: None available. TECHNIQUE: 3 views the right shoulder are provided. FINDINGS/ IMPRESSION: 1. Ossific body is identified along the superior aspect of the humeral head possibly within the joint space measuring 1.1 cm. Findings could be associated with calcific tendinitis. 2. No acute fracture or dislocation. 3. Sclerosis along the superolateral aspect of the humeral head could reflect chronic rotator cuff arthropathy. Glenohumeral and acromioclavicular joint spaces are maintained. 4. Right chest wall infusion port catheter is visualized. No suspicious abnormality is identified in the right lung. Electronically signed by: Luz Brothers MD (10/26/2019 9:45 AM) [id number]
--- NOTE | 2019-10-26 09:58 | RAD ---
FOOT RIGHT 3V 10/26/2019 12:00 AM INDICATION: Right foot pain COMPARISON: None available. TECHNIQUE: 3 views of the right foot are provided. FINDINGS/ IMPRESSION: 1. There is soft tissue swelling along the medial aspect of the forefoot at the level of the distal first metatarsal and metatarsophalangeal joint. No osseous erosion. 2. Mild degenerative changes of the first metatarsophalangeal joint with mild joint space narrowing. 3. There is a partially healed nondisplaced fracture involving the midshaft of the proximal phalanx of the third digit. Electronically signed by: Luz Brothers MD (10/26/2019 9:55 AM) [id number]
== END | disposition home or self-care (01) ==
LOC: DXRAD 09:13
PROVIDERS: ATTEND Physician Assistant
DX: M19.071 Primary osteoarthritis, right ankle and foot (principal); M79.89 Other specified soft tissue disorders
CPT/HCPCS: 73030; 73630

== ENCOUNTER → 2019-12-04 | Outpatient (CLI) | payer OTHER, MEDICAID ==
[~2019-12-04] MED LIST changes: +MULT-445 PO; -MULT1TAB52 PO
--- NOTE | 2019-12-04 11:49 | RAD ---
Bilateral lower extremity venous doppler ultrasound History: Calf pain and swelling Comparison: None Findings: Multiple grayscale, color, and duplex spectral analysis sonographic images were acquired of the bilateral lower extremity veins to evaluate for the presence of DVT. There is normal phasicity. Normal compression, color-flow, and augmentation is demonstrated from the bilateral common femoral to the popliteal veins. There is normal color flow of the proximal greater saphenous and profunda femoris veins. There is limited visualization of the calf veins. There is some edema of the soft tissues. Impression: 1. There is no evidence of deep venous thrombosis from the bilateral common femoral to the popliteal veins. Electronically signed by: Lavon Garrett MD (12/04/2019 11:46 AM) [id number]
== END ==
LOC: US 10:54
PROVIDERS: ATTEND Physician Assistant
DX: I82.463 Acute embolism and thrombosis of calf muscular vein, bilateral (principal)
CPT/HCPCS: 93970

== ENCOUNTER 2019-12-17 22:19 | Inpatient (IN) | payer MEDICAID, OTHER ==
[~2019-12-17] VITALS: Ht 152.4 cm; Wt 90.4 kg
[2019-12-17] MEDS ORDERED: NALOXONE 2 MG/2 ML DISP.SYRIN. IV ONE (22:45)
[2019-12-17] MEDS ORDERED: IV NORMAL SALINE 1,000ML 1,000 ML IV ONE (22:45)
[2019-12-17 22:51] LABS: BASO # 0.1 x10^3/uL (0.0-0.2); BASO % 0 % (0-3); EOS # 0.1 x10^3/uL (0.0-0.7); EOS % 0 % (0-3); LYMPH # 1.8 x10^3/uL (1.0-4.8); LYMPH % 14 % (24-48); MEAN CORPUSCULAR HEMOGLOBIN 33 pg (25-35); MEAN CORPUSCULAR HGB CONC 31 g/dL (31-37); MEAN CORPUSCULAR VOLUME 107 fL (79-100); MONO # 0.6 x10^3/uL (0.0-1.1); MONO % 4 % (0-9); NEUT # 10.8 x10^3uL (1.8-7.7); NEUT % 81 % (31-73); PLATELET COUNT 248 x10^3/uL (140-400); RED BLOOD COUNT 2.99 x10^6/uL (3.50-5.40); RED CELL DISTRIBUTION WIDTH 15.2 % (11.5-14.5); WHITE BLOOD COUNT 13.3 x10^3/uL (4.0-11.0)
[2019-12-17 23:01] LABS: CALCIUM 8.4 mg/dL (8.5-10.1); CREATININE 1.7 mg/dL (0.6-1.0); GFR 32.5; POTASSIUM 3.2 mmol/L (3.5-5.1)
[2019-12-17 23:02] LABS: BGAS PH 7.39 (7.35-7.45)
[2019-12-17 23:03] LABS: AMPHETAMINE/METHAMPHETAMINE NEG (NEG); BARBITURATES NEG (NEG); BENZODIAZEPINES NEG (NEG); CANNABINOIDS NEG (NEG); COCAINE NEG (NEG); METHADONE NEG (NEG); OPIATES NEG (NEG); PHENCYCLIDINE NEG (NEG)
--- NOTE | 2019-12-17 23:03 | RAD ---
AP chest. HISTORY: Unresponsive AP view was taken of the chest. There is linear atelectasis in the left lung. There is no effusion. Heart is normal in size. Patient's had surgery at the right shoulder in the interval since the prior chest x-ray with resection of the distal clavicle. Right Port-A-Cath is unchanged. No new infiltrates are noted. IMPRESSION: 1. Right Port-A-Cath unchanged. 2. Linear atelectasis or scarring left lung. 3. No other acute infiltrates. Electronically signed by: Brando Reed MD (12/17/2019 11:00 PM) [id number]
[2019-12-17 23:11] LABS: BILIRUBIN,URINE NEG (NEG); CLARITY,URINE HAZY; COLOR,URINE YELLOW; GLUCOSE,URINE NEG (NEG); NITRITE,URINE POS (NEG); UROBILINOGEN,URINE 0.2 mg/dL (0.2 mg/dL)
[2019-12-17 23:12] LABS: BACTERIA,URINE MOD /HPF (0-FEW); HYALINE CASTS, URINE FEW /HPF; RBC,URINE OCC /HPF (0-2); SQUAMOUS EPITHELIAL CELL,UR FEW /LPF
[2019-12-17 23:16] LABS: ALBUMIN 3.6 g/dL (3.4-5.0); ALBUMIN/GLOBULIN RATIO 1.4 (1.0-1.7); TOTAL BILIRUBIN 0.4 mg/dL (0.2-1.0); TOTAL PROTEIN 6.1 g/dL (6.4-8.2)
--- NOTE | 2019-12-17 23:23 | PHYS DOC ---
Past History Past Medical History: No Pertinent History Additional Past Medical Histor: adrenal insufficiency, spinal stenosis, pulmonary embolism Past Surgical History: No Surgical History Additional Past Surgical Histo: over 20 abd surgeries Alcohol Use: None Drug Use: None General Adult EDM: Chief Complaint: ALTERED MENTAL STATUS HPI: HPI: 44-year-old female presents via EMS with altered mental status. The patient was found by an unidentified male to be minimally responsive. He called EMS when EMS arrived patient was not responding. She would open her eyes, but would not respond to questions. She wants to keep her eyes closed. This entire history comes from EMS reports as the patient is not responding to us. In route her EKG was unremarkable. She did have an oxygen saturation in the 80s, but this quickly resolved with supplemental oxygen. The patient has a port for unknown reason. She also has a urinary catheter. There were no empty pill bottles found at the scene. No obvious drug use. Review of Systems: Review of Systems: Unable to perform due to patient unresponsiveness Heart Score: Risk Factors: Risk Factors: DM, Current or recent (<one month) smoker, HTN, HLP, family history of CAD, obesity. Risk Scores: Score 0 - 3: 2.5% MACE over next 6 weeks - Discharge Home Score 4 - 6: 20.3% MACE over next 6 weeks - Admit for Clinical Observation Score 7 - 10: 72.7% MACE over next 6 weeks - Early Invasive Strategies Current Medications: Current Meds: Current Medications Medications (Trade) Dose Ordered Sig/Mani Start Time Stop Time Status Last Admin Dose Admin Naloxone HCl (Narcan) 2 mg 1X ONCE 12/17/19 22:45 12/17/19 22:46 DC 12/17/19 22:40 2 MG Sodium Chloride 1,000 ml @ 1,000 mls/hr 1X ONCE 12/17/19 22:45 12/17/19 23:44 12/17/19 22:35 1,000 MLS/HR Allergies: Allergies: Allergies Coded Allergies Type Severity Reaction Last Updated Verified Sulfa (Sulfonamide Antibiotics) Allergy Intermediate 10/11/18 Yes citric acid Allergy Intermediate 10/11/18 Yes shellfish derived Allergy Intermediate 10/11/18 Yes Physical Exam: PE: Constitutional: Well developed, well nourished, not responding to verbal commands. [] HENT: Normocephalic, atraumatic, bilateral external ears normal, oropharynx moist, no oral exudates, nose normal. [] Eyes: PERRLA, EOMI, conjunctiva normal, no discharge. [] Neck: Normal range of motion, no tenderness, supple, no stridor. [] Cardiovascular: Heart rate regular rhythm, no murmur [] Lungs & Thorax: Bilateral breath sounds clear to auscultation [] Abdomen: Bowel sounds normal, soft, no tenderness, no masses, no pulsatile masses. Suprapubic catheter [] Skin: Warm, dry, no erythema, no rash. [] Back: Normal appearance. [] Extremities: No cyanosis, no clubbing. [] Neurologic: Unresponsive to verbal stimuli [] Psychologic: Unable to perform. [] Current Patient Data: Labs: Laboratory Tests Test 12/17/19 22:20 12/17/19 22:30 12/17/19 22:35 Blood pH 7.39 (7.35-7.45) Blood Gas PCO2 35 mmHg (35-45) Blood Gas PO2 119 mmHg (80-100) H Blood Gas HCO3 21 mmol/L (22-26) L Arterial Bld O2 Saturation (Calc) 99 % (92-99) FiO2 36 % White Blood Count 13.3 x10^3/uL (4.0-11.0) H Red Blood Count 2.99 x10^6/uL (3.50-5.40) L Hemoglobin 10.0 g/dL (12.0-15.5) L Hematocrit 32.0 % (36.0-47.0) L Mean Corpuscular Volume 107 fL (79-100) H Mean Corpuscular Hemoglobin 33 pg (25-35) Mean Corpuscular Hemoglobin Concent 31 g/dL (31-37) Red Cell Distribution Width 15.2 % (11.5-14.5) H Platelet Count 248 x10^3/uL (140-400) Neutrophils (%) (Auto) 81 % (31-73) H Lymphocytes (%) (Auto) 14 % (24-48) L Monocytes (%) (Auto) 4 % (0-9) Eosinophils (%) (Auto) 0 % (0-3) Basophils (%) (Auto) 0 % (0-3) Neutrophils # (Auto) 10.8 x10^3uL (1.8-7.7) H Lymphocytes # (Auto) 1.8 x10^3/uL (1.0-4.8) Monocytes # (Auto) 0.6 x10^3/uL (0.0-1.1) Eosinophils # (Auto) 0.1 x10^3/uL (0.0-0.7) Basophils # (Auto) 0.1 x10^3/uL (0.0-0.2) Sodium Level 147 mmol/L (136-145) H Potassium Level 3.2 mmol/L (3.5-5.1) L Chloride Level 109 mmol/L (98-107) H Carbon Dioxide Level 23 mmol/L (21-32) Anion Gap 15 (6-14) H Blood Urea Nitrogen 32 mg/dL (7-20) H Creatinine 1.7 mg/dL (0.6-1.0) H Estimated GFR (Cockcroft-Gault) 32.5 BUN/Creatinine Ratio 19 (6-20) Glucose Level 108 mg/dL (70-99) H Calcium Level 8.4 mg/dL (8.5-10.1) L Total Bilirubin Pending Aspartate Amino Transferase (AST) Pending Alanine Aminotransferase (ALT) Pending Alkaline Phosphatase Pending Total Protein Pending Albumin Pending Albumin/Globulin Ratio Pending Urine Opiates Screen Neg (NEG) Urine Methadone Screen Neg (NEG) Urine Barbiturates Neg (NEG) Urine Phencyclidine Screen Neg (NEG) Urine Amphetamine/Methamphetamine Neg (NEG) Urine Benzodiazepines Screen Neg (NEG) Urine Cocaine Screen Neg (NEG) Urine Cannabinoids Screen Neg (NEG) Urine Ethyl Alcohol Neg (NEG) EKG: EKG: Sinus rhythm, rate 72, leftward axis, no ST elevations or depressions. [] Radiology/Procedures: Radiology/Procedures: [] Impressions: CT brain without contrast. HISTORY: Altered mental status CT scan of the brain was done without contrast. Sinuses are clear. A skull fracture is not identified. There is no mass or shift of the midline. An acute CVA is not identified. Ventricles are normal in size. IMPRESSION: 1. No intracranial hemorrhage or acute finding noted. PQRS Compliance Statement: One or more of the following individualized dose reduction techniques were utilized for this examination: 1. Automated exposure control 2. Adjustment of the mA and/or kV according to patient size 3. Use of iterative reconstruction technique Electronically signed by: Brando Reed MD (12/17/2019 11:39 PM) [id number] DICTATED AND SIGNED BY: BRANDO REED MD DATE: 12/17/19 2339 CC: RICHARD GLOVER DO; BRANDO DO MD ~ AP chest. HISTORY: Unresponsive AP view was taken of the chest. There is linear atelectasis in the left lung. There is no effusion. Heart is normal in size. Patient's had surgery at the right shoulder in the interval since the prior chest x-ray with resection of the distal clavicle. Right Port-A-Cath is unchanged. No new infiltrates are noted. IMPRESSION: 1. Right Port-A-Cath unchanged. 2. Linear atelectasis or scarring left lung. 3. No other acute infiltrates. Electronically signed by: Brando eRed MD (12/17/2019 11:00 PM) [id number] DICTATED AND SIGNED BY: BRANDO REED MD DATE: 12/17/19 2300 CC: RICHARD GLOVER DO; BRANDO DO MD ~ Course & Med Decision Making: Course & Med Decision Making Pertinent Labs and Imaging studies reviewed. (See chart for details) The patient's labs significant for an elevated white count. Her urinalysis is nitrite positive. This appears to be urosepsis. Her head CT is negative for acute findings. Blood cultures have been ordered. Lactic acid is within normal limits. Her ABG was within normal limits. Her EKG was unremarkable. We have given her 1 g of Rocephin IV. Some of the patient's behavior seems to be volitional. She holds her eyes closed when we attempt to open them. She was arousable with smelling salts. Regardless, she likely is also very ill. We have given her 2 L of normal saline. We will admit her to the ICU. I spoke with Dr. Gonzalez and he has accepted her for ICU admission for urosepsis. Given the patient's indwelling catheter, I will also give her 750 of levofloxacin IV. 49 minutes of critical care time was spent on this patient exclusive of other billable procedures. [] Dragon Disclaimer: Dragon Disclaimer: This electronic medical record was generated, in whole or in part, using a voice recognition dictation system. Departure Departure: Impression: Primary Impression: UTI (urinary tract infection) Qualified Codes: T83.510A - Infection and inflammatory reaction due to cystostomy catheter, initial encounter; N39.0 - Urinary tract infection, site not specified Additional Impression: Sepsis Qualified Codes: A41.51 - Sepsis due to Escherichia coli [e. coli]; R65.20 - Severe sepsis without septic shock Disposition: 09 ADMITTED INPATIENT Admitting Physician: Neville Gonzalez Condition: GUARDED Referrals: BRANDO DO MD (PCP) Justification of Admission: Justification of Admission: Justification of Admission Dx: Yes Sepsis: Altered Mental Status Sepsis Assessment: Date and Time of Assessment Date: Dec 17, 2019 Time: 23:00 Vital Signs Vital Signs Vital Signs Date Time Temp Pulse Resp B/P (MAP) Pulse Ox O2 Delivery O2 Flow Rate FiO2 12/17/19 22:59 98.6 80 10 101/65 (77) 94 Nasal Cannula 4.0 Respirations Respiratory Effort: Non-Labored Respiratory Pattern: Normal Cardiovascular Pulse Rhythm: Regular HEART: No murmurs noted Lung Sounds Breath Sounds: Clear Capillary Refill Capillary Refill: Rt Hand < 3 seconds Peripheral Pulse Pulse Location: Monitor Pulse Strength: Normal (2+) Pulse Assessment Method: Monitor Integumentary Skin: Warm Skin Moisture: Dry Skin Turgor: Decreased Skin Color: no erythema Fingernail Color: WNL Sepsis Assessment: Date and Time of Assessment Date: Dec 18, 2019 Time: 00:47 Vital Signs Vital Signs Vital Signs Date Time Temp Pulse Resp B/P (MAP) Pulse Ox O2 Delivery O2 Flow Rate FiO2 12/17/19 22:59 98.6 80 10 101/65 (77) 94 Nasal Cannula 4.0 Respirations Respiratory Effort: Normal Respiratory Pattern: Normal Cardiovascular Pulse Rhythm: Regular HEART: No murmurs noted Lung Sounds Breath Sounds: Clear Capillary Refill Capillary Refill: Rt Hand < 3 seconds Peripheral Pulse Pulse Location: Monitor Pulse Strength: Normal (2+) Pulse Assessment Method: Monitor Integumentary Skin: Warm Skin Moisture: Dry Skin Turgor: Normal Skin Color: no erythema Fingernail Color: WNL RICHARD GLOVER DO Dec 17, 2019 23:23
--- NOTE | 2019-12-17 23:43 | EKG ---
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
--- NOTE | 2019-12-17 23:43 | RAD ---
CT brain without contrast. HISTORY: Altered mental status CT scan of the brain was done without contrast. Sinuses are clear. A skull fracture is not identified. There is no mass or shift of the midline. An acute CVA is not identified. Ventricles are normal in size. IMPRESSION: 1. No intracranial hemorrhage or acute finding noted. RS Compliance Statement: One or more of the following individualized dose reduction techniques were utilized for this examination: 1. Automated exposure control 2. Adjustment of the mA and/or kV according to patient size 3. Use of iterative reconstruction technique Electronically signed by: Brando Reed MD (12/17/2019 11:39 PM) [id number]
[2019-12-17] MEDS: IV NORMAL SALINE 1,000ML 1,000 ML IV SCH (23:51)
[2019-12-17] MEDS ORDERED: IV NORMAL SALINE 50ML 50 ML ONE (23:54)
[2019-12-17] MEDS ORDERED: cefTRIAXone SODIUM 1 GM VIAL ONE (23:54)
[2019-12-18] VITALS (7 sets, daily range): BP systolic 97–121; BP diastolic 58–68
[2019-12-18] MEDS: IV NORMAL SALINE 1,000ML 1,000 ML IV SCH (00:36)
[2019-12-18] MEDS ORDERED: ACETAMINOPHEN 325 MG TABLET PO PRN (04:15)
--- NOTE | 2019-12-18 05:12 | NUR ---
Pt admitted to room 111 accompanied by EMS. Pt was transferred from [facility] to bed x4 assist. Pt is ICU status, here for AMS and Urosepsis. Pt is frequently drowsy and difficult to rouse. Pt. slow to respond and repeating answers to questions from several moments ago. Pt. unable to go over PMH, much of history obtained from past records. Home med list received from . Pt. has permanent suprapubic catheter. Which has reportedly been changed recently, draining cloudy, orange urine with sediment and strong odor. Pt. received initial dose of Rocephin and Levaquin in ED for UTI. Unable to orient pt to unit or POC. Pt. is resting comfortably in bed now. Call light in reach.
[2019-12-18] MEDS ORDERED: POTA20TA4 PO (06:15)
[2019-12-18] MEDS ORDERED: BACL20TA PO (06:15)
[2019-12-18] MEDS ORDERED: [UNRECOGNIZED DRUG - MIXTURE] PO (06:15)
[2019-12-18] MEDS ORDERED: ONDA4TAB12 PO (06:15)
[2019-12-18] MEDS ORDERED: ACET-1871 PO (06:18)
[2019-12-18] MEDS ORDERED: ACETAMINOPHEN WITH CODEINE PO PRN (09:30)
--- NOTE | 2019-12-18 09:37 | HP ---
ADMIT DATE: 12/18/2019 ATTENDING PHYSICIAN: Dr. Hines. CHIEF COMPLAINT: Altered mentation. HISTORY OF PRESENT ILLNESS: The patient is a 44-year-old female admitted through the ED last time with altered mentation. She was found by unidentified male to be minimally responsive. He called EMS. The patient was not responding. She would not open her eyes. There is clearly underlying psychiatric issues. She was much more alert when I saw her the next day. On route, her resting electrocardiogram was unremarkable. She had low oxygen saturation in the 80s, but this quickly resolved with supplemental oxygen. She has a port for unknown reason, multiple medical issues including a suprapubic catheter. Abnormal urinalysis. Cultures are pending. Clinically, she was admitted with dehydration, hypotension and possible sepsis syndrome. PAST MEDICAL HISTORY: Significant for chronically indwelling suprapubic catheter due to neurogenic bladder. She has adrenal insufficiency, spinal stenosis, pulmonary embolism, chronic pain syndrome. Supposedly, she has a contract with the pain clinic taking 4 doses of Tylenol #4 schedule. She has had multiple abdominal surgeries, 20 abdominal surgeries in her lifetime. Details are sketchy at this time. CURRENT MEDICINES: Reviewed. Whether or not she was taking this remains to be seen. She was scheduled to take Tylenol #4 1 4 times a day, alprazolam 0.25 mg b.i.d., ascorbic acid, Tylenol, baclofen, Cymbalta 60 mg daily, fluorinated cortisone 2 tabs b.i.d., Neurontin, hydrocortisone tablets, melatonin, metolazone, Remeron, multivitamin, ondansetron, Protonix, Pyridium, MiraLax, potassium supplementation, Aldactone, torsemide, trazodone and Tylenol #4 1 every 6 hours. ALLERGIES: SHE HAS MULTIPLE ALLERGIES INCLUDING SULFA ANTIBIOTICS, CITRIC ACID, AND SHELLFISH. SOCIAL HISTORY: She is a smoker, 1 pack of cigarettes daily. She denied any recreational drug or alcohol use. FAMILY HISTORY: Unobtainable. REVIEW OF SYSTEMS: Significant for low potassium. She has cramps. She does not remember what happened last night. She has a suprapubic indwelling catheter for the last 4 years for neurogenic bladder. She has a chronic lower extremity edema due to increased water intake due to dry mouth due to her medications. All other systems reviewed and turned to be negative. PHYSICAL EXAMINATION: GENERAL: When I saw her, this is a chronically ill-appearing female, appearing older than her stated age. VITAL SIGNS: Her initial blood pressure was 101/65, pulse is 80 and regular, temperature 98.6 degrees Fahrenheit, oxygen saturation 100% on 3 liters by nasal cannula. HEENT: Head is without trauma. Pupils are reactive. Sclerae nonicteric. Oropharynx is clear. NECK: Supple, no bruits identified. LUNGS: Shallow respirations. CARDIOVASCULAR: Showed distant heart tones. No obvious gallops. Peripheral pulses are palpable and full. ABDOMEN: Soft, obese, protuberant. Previous surgical scars well are healed. There is no tympany or distention. The indwelling Ellis suprapubic catheter is in place. There is no redness and erythema at the site of insertion. NEUROLOGIC FINDINGS: Focally intact. Speech was fluent. EXTREMITIES: Her right ankle is in a walking cast. She has supposedly had a stress factor just last week. SKIN: Warm and dry. PERTINENT LABORATORY AND X-RAY STUDIES: The obligatory CT of the head demonstrated no acute intracranial process. Chest x-ray showed a Port-A-Cath, linear atelectasis. There is no acute infiltrates identified. LABORATORY DATA: Her hemoglobin is 10.0 g/dL with white count of 13,300. Urinalysis was abnormal with bacteria. Cultures are pending. Chemistry panel: Sodium 147 mEq/L, potassium 3.2 mEq, creatinine is 1.7 mg/dL. ASSESSMENT: 1. This 44-year-old female has a urinary tract infection. 2. Probable sepsis from urinary tract infection. 3. Hypotension due to diuretics. 4. She has supraphysiologic doses of adrenal corticoid hormones causing her hypernatremia and hypokalemia. I have adjusted her dose accordingly. 5. Underlying depression with anxiety. 6. Neurogenic bladder with suprapubic catheter. 7. Recent right ankle fracture, in cast. 8. Underlying depression with anxiety. 9. Supposed history of adrenal insufficiency. PLAN: 1. Admit to the inpatient unit. 2. Pending urine cultures, antibiotics have been started. 3. I will adjust her dose of hydrocortisone to minimize the mineralocorticoid effect. 4. Potassium and magnesium replacement. 5. Simplification of meds. 6. She insisted on her scheduled Tylenol #4. 7. Serial chemistries. 8. Await results of urine and blood cultures. SCHUYLER HINES MD DR: NADEEM/shayna JOB#: [id number] / [id number]
[2019-12-18] MEDS ORDERED: MAGNESIUM SULFATE 1GM 100 ML IV ONE (10:25)
[2019-12-18] MEDS: ACETAMINOPHEN 325 MG TABLET PO PRN ×3 (11:25→21:20)
[2019-12-18] MEDS: ONDANSETRON ODT 4 MG TAB.RAPDIS PO PRN ×2 (11:25→20:25)
[2019-12-18] MEDS: DULoxetine HCL 60 MG CAPSULE.DR PO SCH ×2 (11:25→21:20)
[2019-12-18] MEDS: CODEINE 30 MG TABLET PO PRN ×3 (11:31→21:21)
[2019-12-18] MEDS: POTASSIUM CHLORIDE 20 MEQ TABLET.ER. PO SCH ×3 (12:50→21:20)
[2019-12-18] MEDS: BACLOFEN 20 MG TABLET PO SCH ×2 (14:19→21:20)
[2019-12-18] MEDS: HYDROCORTISONE 10 MG TABLET PO SCH ×2 (14:30→21:00)
[2019-12-18] MEDS: GABAPENTIN 300 MG CAPSULE. PO SCH ×2 (16:28→21:20)
[2019-12-18] MEDS: SPIRONOLACTONE 25 MG TABLET PO SCH (16:28)
[2019-12-18] MEDS: FLUDROCORTISONE 0.1 MG TABLET PO SCH ×2 (16:29→21:19)
--- NOTE | 2019-12-18 20:00 | NUR ---
Pt. complained of cramping in legs and left pointer finger. Pt requesting that potassium level be rechecked. notified and order received. Pt labs drawn from right chest port. Result is WNL=4.4. Pt was notified and is now requesting Baclofen along with rest of night time meds.
[2019-12-18] MEDS: MELATONIN 3 MG TABLET PO SCH (21:00)
[2019-12-18] MEDS: MIRTAZAPINE 30 MG TABLET PO SCH (21:19)
[2019-12-18] MEDS: PANTOPRAZOLE 40 MG TABLET. PO SCH (21:19)
[2019-12-18] MEDS: LACTOBACILLUS RHAMNOSUS GG 1 CAPSULE. PO SCH (21:19)
[2019-12-18] MEDS: ALPRAZolam 0.25 MG TABLET PO SCH (21:19)
[2019-12-18] MEDS: ASPIRIN 325 MG TABLET PO SCH (21:20)
[2019-12-19] MEDS: ACETAMINOPHEN 325 MG TABLET PO PRN ×3 (05:40→18:07)
[2019-12-19] MEDS: CODEINE 30 MG TABLET PO PRN ×3 (05:40→18:07)
[2019-12-19 05:43] VITALS: BP 100/66
[2019-12-19] MEDS: LACTOBACILLUS RHAMNOSUS GG 1 CAPSULE. PO SCH ×2 (08:32→21:27)
[2019-12-19] MEDS: ASPIRIN 325 MG TABLET PO SCH ×2 (08:32→21:27)
[2019-12-19] MEDS: DULoxetine HCL 60 MG CAPSULE.DR PO SCH ×2 (08:33→21:26)
[2019-12-19] MEDS: BACLOFEN 20 MG TABLET PO SCH ×3 (08:33→21:26)
[2019-12-19] MEDS: PANTOPRAZOLE 40 MG TABLET. PO SCH ×2 (08:33→21:26)
[2019-12-19] MEDS: ALPRAZolam 0.25 MG TABLET PO SCH ×2 (08:33→21:28)
[2019-12-19] MEDS: GABAPENTIN 300 MG CAPSULE. PO SCH ×3 (08:33→21:26)
[2019-12-19] MEDS: SPIRONOLACTONE 25 MG TABLET PO SCH (08:33)
[2019-12-19] MEDS: POTASSIUM CHLORIDE 20 MEQ TABLET.ER. PO SCH ×2 (08:34→21:27)
[2019-12-19] MEDS: HYDROCORTISONE 10 MG TABLET PO SCH ×2 (08:36→21:27)
[2019-12-19] MEDS: POLYETHYLENE GLYCOL 3350 17 GM PACKET. PO SCH (08:36)
[2019-12-19] MEDS ORDERED: HYDROCORTISONE 10 MG TABLET PO SCH (09:00)
[2019-12-19 10:57] VITALS: BP 103/69
--- NOTE | 2019-12-19 11:02 | PN ---
DATE: 12/19/2019 ATTENDING PHYSICIAN: Dr. Hines. SUBJECTIVE: No new complaints, still weak. Minimal cramps. Her potassium has been replaced. OBJECTIVE FINDINGS: VITAL SIGNS: Blood pressure today is still marginal 100/66, pulse is 71 and regular, temperature 98.1 degrees Fahrenheit and oxygen saturation 94% on 3 liters nasal cannula. HEENT: Head is without trauma. Pupils are reactive. Sclerae nonicteric. Oropharynx clear. NECK: Supple. LUNGS: Clear with shallow respirations. CARDIOVASCULAR: Showed distant heart tones. No gallops. ABDOMEN: Soft. Suprapubic catheter is in place. EXTREMITIES: Right ankle is in cast. Minimal edema. NEUROLOGIC: Focally intact. No deficits. Affect remains flat. LABORATORY DATA: Repeat potassium is up to 4.4 mEq per liter. So far, the blood cultures showed no growth after 1 day. ASSESSMENT: A 44-year-old female with: 1. Urinary tract infection. 2. Sepsis syndrome related to urinary tract infection. 3. Hypotension, improved. 4. Dehydration. 5. Chronically indwelling suprapubic catheter. 6. Hypotension due to diuretics, improved since we stopped the diuretics. 7. Underlying depression with anxiety. 8. Neurogenic bladder. 9. Recent right ankle fracture. 10. Supposed history of adrenal insufficiency. PLAN: 1. Continue antibiotics as ordered. 2. Pending urine cultures. We will adjust her dosage accordingly. 3. Hydrocortisone has been decreased to minimize the mineralocorticoid effects. 4. Potassium and magnesium replacement. 5. PT, OT consult. 6. Simplification of meds. 7. Pain control. 8. Await results of cultures. SCHUYLER HINES MD DR: NADEEM/shayna JOB#: [id number] / [id number] UMESH Martinez MD
[2019-12-19] MEDS: ONDANSETRON ODT 4 MG TAB.RAPDIS PO PRN (12:03)
--- NOTE | 2019-12-19 12:30 | NUR ---
PATIENT C/O PAIN IN SHOULDERS AND BACK, REQUESTED PAIN MEDS, TYLENOL AND CODEINE GIVEN ORDERED. PT C/O SOME CRAMPING IN LLE, SCDS APPLIED TO LLE. WILL CONTINUE TO MONITOR.
[2019-12-19 15:12] VITALS: BP 92/62
[2019-12-19 19:16] VITALS: BP 101/68
[2019-12-19] MEDS ORDERED: traZODone 100 MG TABLET. PO SCH (21:00)
[2019-12-19] MEDS: MIRTAZAPINE 30 MG TABLET PO SCH (21:26)
[2019-12-19] MEDS: FLUDROCORTISONE 0.1 MG TABLET PO SCH (21:27)
[2019-12-19] MEDS: MELATONIN 3 MG TABLET PO SCH (21:28)
[2019-12-19 23:07] VITALS: BP 104/69
[2019-12-20] MEDS: ACETAMINOPHEN 325 MG TABLET PO PRN ×2 (04:11→10:46)
[2019-12-20] MEDS: CODEINE 30 MG TABLET PO PRN ×2 (04:12→10:46)
--- NOTE | 2019-12-20 05:16 | NUR ---
Pt had an uneventful night. Remains on 3L per NC. VSS. Pt suprapubic cath patent. Pt did require a dose of pain meds throughout shift.
[2019-12-20 05:45] VITALS: BP 97/68
[2019-12-20 06:17] LABS: CALCIUM 8.1 mg/dL (8.5-10.1); POTASSIUM 4.2 mmol/L (3.5-5.1)
[2019-12-20 07:47] LABS: HEMATOCRIT 29.5 % (36.0-47.0); HEMOGLOBIN 9.5 g/dL (12.0-15.5); RED BLOOD COUNT 2.74 x10^6/uL (3.50-5.40); WHITE BLOOD COUNT 8.2 x10^3/uL (4.0-11.0)
[2019-12-20] MEDS: HYDROCORTISONE 10 MG TABLET PO SCH (09:00)
[2019-12-20] MEDS: GABAPENTIN 300 MG CAPSULE. PO SCH (09:11)
[2019-12-20] MEDS: BACLOFEN 20 MG TABLET PO SCH (09:12)
[2019-12-20] MEDS: POLYETHYLENE GLYCOL 3350 17 GM PACKET. PO SCH (09:12)
[2019-12-20] MEDS: DULoxetine HCL 60 MG CAPSULE.DR PO SCH (09:12)
[2019-12-20] MEDS: LACTOBACILLUS RHAMNOSUS GG 1 CAPSULE. PO SCH (09:12)
[2019-12-20] MEDS: ALPRAZolam 0.25 MG TABLET PO SCH (09:12)
[2019-12-20] MEDS: PANTOPRAZOLE 40 MG TABLET. PO SCH (09:12)
[2019-12-20] MEDS: ASPIRIN 325 MG TABLET PO SCH (09:12)
[2019-12-20] MEDS: POTASSIUM CHLORIDE 20 MEQ TABLET.ER. PO SCH (09:12)
[2019-12-20] MEDS: FLUDROCORTISONE 0.1 MG TABLET PO SCH (09:16)
[2019-12-20] MEDS ORDERED: MAGN200T7 PO (12:54)
[2019-12-20] MEDS ORDERED: LEVO500T59 PO (12:54)
[2019-12-20 12:56] VITALS: BP 99/64
--- NOTE | 2019-12-20 13:31 | DS ---
DATE OF DISCHARGE: 12/20/2019 HOSPITAL COURSE: The patient is a 44-year-old female patient who apparently was admitted to [facility] Emergency Room with altered mental status. She was found by unidentified male to be minimally responsive. She would not open her eyes. There is clearly underlying psych issues. She was apparently hypoxic with oxygen saturation of 80%, but this quickly resolved with supplemental oxygen. She has a port for unknown reason, multiple medical issues including suprapubic catheter. Her urinalysis was abnormal. She was dehydrated, hypotensive and with possible sepsis syndrome. She was treated with IV ceftriaxone and her diuretics were held and she did actually very well. Her potassium was also low. It was replenished. PHYSICAL EXAMINATION: GENERAL: When I saw her today, she looked well and was clearly in no apparent distress. She was awake, alert, responding appropriately. The patient was pale, but no jaundice, cyanosis or thyromegaly. No jugular venous distention. No limb edema. VITAL SIGNS: Her heart rate was 76, blood pressure was 97/68, temperature was 98.5, respiratory rate was 16 and oxygen saturation was 95% on 3 liters of oxygen. HEAD, EYES, EARS, NOSE AND THROAT: Normocephalic, atraumatic. NECK: Supple. HEART: Showed normal first and second heart sounds. No gallop, rub or murmur. CHEST: Clear to auscultation. No crepitation or rhonchi. ABDOMEN: Distended, soft, nontender. No guarding or rigidity. No organomegaly. All hernial orifice intact. Bowel sounds normal. She has suprapubic catheter in place. NEUROLOGIC: She is awake, alert, responding appropriately. All cranial nerves intact. She moves extremities without difficulty. Her intake over the last 24 hours was 1150, output was 4300. LABORATORY DATA: As of this morning, her serum sodium was 140, potassium 4.2, chloride 108, bicarbonate 26, anion gap of 6, BUN 11, creatinine 1, estimated GFR was 60 mL per minute. Her glucose was 91, calcium was 8.1 and magnesium was 2.3. White cell count was 8200, hemoglobin 9.5, hematocrit 29.5, MCV 108 and platelet count of 197,000. Her urinalysis showed she has 11-20 wbc's and moderate amount of bacteria. Her toxic screen was essentially negative. Her urine culture grew more than 100,000 colony forming units per mL of gram-negative opal, identified as Klebsiella pneumoniae, sensitive to most of the cephalosporin, ciprofloxacin and Levaquin. DISCHARGE MEDICATIONS: The patient was discharged home with home health to continue on following medications: Levofloxacin 500 mg once a day for 3 days, magnesium oxide 400 mg twice a day. She is on codeine and she is on Tylenol No. 4 tablet 1 tablet every 6 hours, alprazolam 0.25 mg twice a day, ascorbic acid for vitamin C 100 mg 3 times a day, aspirin 325 mg twice a day, baclofen 20 mg 3 times a day, duloxetine for Cymbalta 60 mg twice a day, fludrocortisone 200 mcg twice a day, gabapentin 100 mg 3 times a day, hydrocortisone 20 mg twice a day, melatonin 3 mg at bedtime, metolazone 2.5 mg daily, mirtazapine 30 mg at bedtime, multivitamin 1 tablet once a day, ondansetron 2 tablets every 4 hours, Protonix 40 mg twice a day, phenazopyridine 200 mg 4 times a day, polyethylene glycol 1 packet once a day, potassium chloride 60 mEq 4 times a day, spironolactone 25 mg twice a day, topiramate 50 mg 3 times a day, torsemide 20 mg twice a day, trazodone 100 mg at bedtime. FINAL DISCHARGE DIAGNOSES: 1. Sepsis related to urinary tract infection. 2. Urinary tract infection with growth of Klebsiella pneumoniae, sensitive to most antibiotics. 3. Hypertension, multifactorial including sepsis and diuretics. 4. The patient has depression and anxiety, neurogenic bladder and adrenal insufficiency. 5. Other medical problems, acute renal failure. UMESH HOLCOMB MD DR: RONALD/shayan JOB#: [id number] / [id number]
[2019-12-20] MEDS ORDERED: HEPARIN PF 500 UNIT/5 ML DISP.SYRIN. ONE (14:13)
[2019-12-20] MEDS ORDERED: HEPARIN PF 500 UNIT/5 ML DISP.SYRIN. IVP ONE (14:15)
--- NOTE | 2019-12-20 14:27 | NUR ---
Discharge Note: ROSANGELA FLORENCE [address] Discharge instructions and discharge home medications reviewed with Patient and a copy given. All questions have been answered and understanding verbalized. Deaccessed chest port. Heparin locked port. Patient discharged to home. Escorted home by .
== END 2019-12-20 14:15 | disposition home health service (06) | DRG 871 ==
LOC: ER 22:19 → 1 SOUTH 12-18 02:00
PROVIDERS: ADMIT Hospitalist; ATTEND Internal Medicine
DX: A41.51 Sepsis due to Escherichia coli [E. coli] (principal); N17.0 Acute kidney failure with tubular necrosis; E27.40 Unspecified adrenocortical insufficiency; E87.0 Hyperosmolality and hypernatremia; N39.0 Urinary tract infection, site not specified; E86.0 Dehydration; E87.6 Hypokalemia; F17.210 Nicotine dependence, cigarettes, uncomplicated; F41.8 Other specified anxiety disorders; G89.4 Chronic pain syndrome; I10 Essential (primary) hypertension; N31.9 Neuromuscular dysfunction of bladder, unspecified; R09.02 Hypoxemia; R65.20 Severe sepsis without septic shock; T50.2X5A Adverse effect of carbonic-anhydrase inhibitors, benzothiadiazides and other diuretics, initial encounter; Z86.711 Personal history of pulmonary embolism; B96.1 Klebsiella pneumoniae [K. pneumoniae] as the cause of diseases classified elsewhere; Z88.2 Allergy status to sulfonamides; Z88.8 Allergy status to other drugs, medicaments and biological substances; Z91.013 Allergy to seafood; I95.9 Hypotension, unspecified
CPT/HCPCS: 36415; 36600; 70450; 71045; 80048; 80053; 80307; 81001; 82803; 83605; 83735; 84132; 84484; 85025; 85027; 87040; 87086; 93005; 96361; 96365; 96367; 96375; J0696; J1956; J2310; J3475; Q0162; 97530; 99291-25; J7030

== ENCOUNTER 2019-12-24 07:53 | Emergency (ER) | payer OTHER, MEDICAID ==
[~2019-12-24] VITALS: Ht 152.4 cm; Wt 90.4 kg
[~2019-12-24 07:53] MED LIST changes: +ACET-1871 PO; +LEVO500T59 PO; +MAGN200T7 PO; +ONDA4TAB12 PO; +[UNRECOGNIZED DRUG - MIXTURE] PO
--- NOTE | 2019-12-24 08:22 | PHYS DOC ---
Past History Past Medical History: Anxiety, Arthritis, CVA, Depression, GERD, UTI, Other Additional Past Medical Histor: Spinal stenosis; [place]'s; back pain; c-diff, MRSA Past Surgical History: Hysterectomy, Other Additional Past Surgical Histo: rotator cuff repair Alcohol Use: None Drug Use: None General Adult EDM: Chief Complaint: MULTIPLE COMPLAINTS HPI: HPI: Patient is a 44-year-old female who presents to the emergency department for evaluation. She states that she was walking this morning, while cleaning up her house, and she lost her balance, while turning, and fell to the ground, striking the left side of her body against the corner of a decorative table. She complains of pain in her left shoulder, left ribs, and left hip. She was able to ambulate after the injury. She denies hitting her head, or any headache head pain, neck pain, mid or lower back pain. She denies any abdominal pain. Her right lower extremity is in a cast secondary to a recent procedure for a wound. There are no alleviating or exacerbating factors to her symptoms except as noted above.She does use a walker at home at baseline. Review of Systems: Review of Systems: Constitutional: Denies fever or chills Eyes: Denies change in visual acuity HENT: Denies nasal congestion or sore throat Respiratory: Denies cough or shortness of breath Cardiovascular: Denies chest pain or edema GI: Denies abdominal pain, nausea, vomiting, bloody stools or diarrhea : Denies dysuria Musculoskeletal: As per HPI Integument: Denies rash Neurologic: Denies headache, focal weakness or sensory changes Endocrine: Denies polyuria or polydipsia Lymphatic: Denies swollen glands Psychiatric: Denies depression or anxiety Heart Score: Risk Factors: Risk Factors: DM, Current or recent (<one month) smoker, HTN, HLP, family history of CAD, obesity. Risk Scores: Score 0 - 3: 2.5% MACE over next 6 weeks - Discharge Home Score 4 - 6: 20.3% MACE over next 6 weeks - Admit for Clinical Observation Score 7 - 10: 72.7% MACE over next 6 weeks - Early Invasive Strategies Allergies: Allergies: Allergies Coded Allergies Type Severity Reaction Last Updated Verified Sulfa (Sulfonamide Antibiotics) Allergy Intermediate 12/24/19 Yes citric acid Allergy Intermediate 12/24/19 Yes shellfish derived Allergy Intermediate 12/24/19 Yes Physical Exam: PE: PHYSICAL EXAM: CONSTITUTIONAL: Well developed, well nourished HEAD: normocephalic, atraumatic EENT: PERRL, EOMI. Conjunctivae normal color, sclerae non-icteric; moist mucous membranes. NECK: Supple, non-tender; no meningismus. There is full, painless range of motion of the cervical spine, without any focal bony midline tenderness to palpation. LUNGS: Lungs CTA, breathing even and unlabored. Normal air movement. HEART: Regular rate and rhythm, no murmur CHEST: No deformity; non-tender ABDOMEN: The abdomen is soft, and non-tender, no masses or bruits. EXTREM: There is tenderness to palpation diffusely of the left shoulder, with limited range of motion secondary to pain, but with no deformity noted. The mid humerus, elbow, and distal arm on the left are nontender. Distal PMS is intact. The remainder the extremities are atraumatic, with normal ROM; no deformity, no calf tenderness. Normal pulses palpable in all extremities. There is bilateral pedal edema. There is no bruising or deformity or focal tenderness noted to the left hip. SKIN: No rash; no diaphoresis NEURO: Alert; normal speech and cognition; CN's grossly intact; strength grossly intact without focal deficit. BACK: No CVA TTP. There is no bony tenderness to palpation of the thoracic or lumbar spine. EKG: EKG: [] Radiology/Procedures: Radiology/Procedures: PROCEDURE: HIP LEFT 2 VIEW Study: 1. CR SHOULDER 2+V LEFT 2. CR RIBS LEFT AND PA CHEST 2. CR HIP LEFT 2 VIEW Indication: Fall with multifocal pain. Comparison: Chest radiograph 12/17/2019; CT abdomen/pelvis 10/10/2018 Findings: Left shoulder: Maintained glenohumeral and AC joint alignment. No acute fracture involving the left shoulder girdle. Chest/Ribs: Right chest wall Port-A-Cath with the tube located within the superior vena cava. No pneumothorax is identified. There is more conspicuous haziness at the periphery of the left hemithorax from the comparison as well as thickening along the pleura approaching the apex. Somewhat linearly oriented density at the lateral aspect left lower lung appears to have been present previously. Fractures well seen on this study to involve the to involve the sixth, seventh and eighth ribs. The seventh rib appears to be fractured in 2 locations. Mild fracture displacement. Sigmoid thoracolumbar scoliosis. Left hip: Hip alignment is maintained. No acute fracture of the proximal left femur. No definite fracture of the partially imaged pelvic osseous structures as well. Mineralization adjacent to the greater trochanter could represent tendon hydroxyapatite deposition. Impression: Left shoulder: 1. No acute osseous abnormality. Chest/Ribs: 1. Mildly displaced left sixth, seventh and eighth rib fractures. The seventh rib appears to be fractured in 2 locations. 2. No pneumothorax is well identified but there were findings suggestive of a small hemorrhagic pleural effusion possibly with superimposed lung contusion. Left hip: 1. No acute fracture or traumatic malalignment.[] Course & Med Decision Making: Course & Med Decision Making Patient remains stable. I discussed test results, the need for close follow-up, and return precautions. The patient does already take Tylenol 4 at home. Encouraged her to continue to use this medication, as well as NSAIDs as needed for pain. Dragon Disclaimer: Dragon Disclaimer: This electronic medical record was generated, in whole or in part, using a voice recognition dictation system. Departure Departure: Impression: Primary Impression: Rib fractures Additional Impression: Accidental fall Disposition: 01 HOME/RESIDENCE PRIOR TO ADM Condition: STABLE Referrals: GABRIEL DO MD (PCP) Patient Instructions: Incentive Spirometer, Rib Fracture Justification of Admission: Justification of Admission: Justification of Admission Dx: Yes Sepsis: Altered Mental Status MI ALCANTAR MD Dec 24, 2019 08:22
[2019-12-24] MEDS ORDERED: ACETAMINOPHEN/CODEINE 300/30MG TABLET PO ONE (08:30)
--- NOTE | 2019-12-24 09:12 | RAD ---
Study: 1. CR SHOULDER 2+V LEFT 2. CR RIBS LEFT AND PA CHEST 2. CR HIP LEFT 2 VIEW Indication: Fall with multifocal pain. Comparison: Chest radiograph 12/17/2019; CT abdomen/pelvis 10/10/2018 Findings: Left shoulder: Maintained glenohumeral and AC joint alignment. No acute fracture involving the left shoulder girdle. Chest/Ribs: Right chest wall Port-A-Cath with the tube located within the superior vena cava. No pneumothorax is identified. There is more conspicuous haziness at the periphery of the left hemithorax from the comparison as well as thickening along the pleura approaching the apex. Somewhat linearly oriented density at the lateral aspect left lower lung appears to have been present previously. Fractures well seen on this study to involve the to involve the sixth, seventh and eighth ribs. The seventh rib appears to be fractured in 2 locations. Mild fracture displacement. Sigmoid thoracolumbar scoliosis. Left hip: Hip alignment is maintained. No acute fracture of the proximal left femur. No definite fracture of the partially imaged pelvic osseous structures as well. Mineralization adjacent to the greater trochanter could represent tendon hydroxyapatite deposition. Impression: Left shoulder: 1. No acute osseous abnormality. Chest/Ribs: 1. Mildly displaced left sixth, seventh and eighth rib fractures. The seventh rib appears to be fractured in 2 locations. 2. No pneumothorax is well identified but there were findings suggestive of a small hemorrhagic pleural effusion possibly with superimposed lung contusion. Left hip: 1. No acute fracture or traumatic malalignment. Electronically signed by: MAURICIO DURAN MD (12/24/2019 9:09 AM) [id number]
[2019-12-24 11:02] VITALS: BP 127/74
== END 2019-12-24 11:02 | disposition home or self-care (01) ==
LOC: ER 07:53
DX: S22.42XA Multiple fractures of ribs, left side, initial encounter for closed fracture (principal); M25.552 Pain in left hip; M25.512 Pain in left shoulder; M19.90 Unspecified osteoarthritis, unspecified site; K21.9 Gastro-esophageal reflux disease without esophagitis; F32.9 Major depressive disorder, single episode, unspecified; F41.9 Anxiety disorder, unspecified; Z87.440 Personal history of urinary (tract) infections; Z88.2 Allergy status to sulfonamides; Z91.018 Allergy to other foods; Z91.013 Allergy to seafood; W01.0XXA Fall on same level from slipping, tripping and stumbling without subsequent striking against object, initial encounter; Y93.E9 Activity, other interior property and clothing maintenance; Y92.89 Other specified places as the place of occurrence of the external cause; Y99.8 Other external cause status
CPT/HCPCS: 71101; 73030; 73502; 99284; G0238

== ENCOUNTER → 2019-12-27 | Outpatient (CLI) | payer OTHER, MEDICAID ==
[~2019-12-27] MED LIST changes: +MUPI22OI2 TP; +PRED20TA PO
[2019-12-27 13:33] VITALS: BP 97/56
== END | disposition home or self-care (01) ==
LOC: SURG 13:12
PROVIDERS: ATTEND Anesthesiology
DX: S22.32XA Fracture of one rib, left side, initial encounter for closed fracture (principal); M79.10 Myalgia, unspecified site; Z91.018 Allergy to other foods; Z91.013 Allergy to seafood; Z88.2 Allergy status to sulfonamides; Z90.49 Acquired absence of other specified parts of digestive tract; Z90.09 Acquired absence of other part of head and neck; Z98.891 History of uterine scar from previous surgery; Z87.19 Personal history of other diseases of the digestive system; Z90.710 Acquired absence of both cervix and uterus; M54.13 Radiculopathy, cervicothoracic region; M54.15 Radiculopathy, thoracolumbar region; F17.200 Nicotine dependence, unspecified, uncomplicated; Z90.89 Acquired absence of other organs; Z79.82 Long term (current) use of aspirin; Z79.899 Other long term (current) drug therapy; X58.XXXA Exposure to other specified factors, initial encounter; Y93.89 Activity, other specified; Y92.89 Other specified places as the place of occurrence of the external cause; Y99.8 Other external cause status
CPT/HCPCS: 99214; G0463

== ENCOUNTER → 2020-01-05 | Outpatient (CLI) | payer OTHER, MEDICAID ==
[2019-12-27 13:33] VITALS: BP 97/56
[~2020-01-05] MED LIST changes: -MUPI22OI2 TP; -PRED20TA PO
--- NOTE | 2020-01-05 12:44 | RAD ---
3 views left ankle 01/05/2020 12:00 AM Indication: Reason: LEFT ANKLE PAIN / Spl. Instructions: / History: Comparison: None Findings: There is no acute fracture or dislocation. Articular surfaces are uninterupted and smooth. Soft tissues are unremarkable. Impression: No evidence of acute osseous abnormality. Electronically signed by: Olayinka Tena MD (01/05/2020 12:42 PM) [id number]
== END | disposition home or self-care (01) ==
LOC: DXRAD 10:34
PROVIDERS: ATTEND Physician Assistant
DX: M25.572 Pain in left ankle and joints of left foot (principal)
CPT/HCPCS: 73610

== ENCOUNTER 2020-02-03 07:02 | Emergency (ER) | payer OTHER, MEDICAID ==
[~2020-02-03] VITALS: Ht 152.4 cm; Wt 90.4 kg
[2020-02-03 07:02] VITALS: BP 118/70
--- NOTE | 2020-02-03 07:06 | PHYS DOC ---
Past History Past Medical History: Anxiety, Arthritis, CVA, Depression, GERD, MRSA, Stroke, UTI, Other Additional Past Medical Histor: Spinal stenosis; [place]'s; back pain; c-diff Past Surgical History: Cholecystectomy, Hysterectomy, Tonsillectomy, Other Additional Past Surgical Histo: RIGHT rotator cuff repair Smoking: Cigarettes Alcohol Use: None Drug Use: None General Adult EDM: Chief Complaint: Rash HPI: HPI: 44-year-old female presents with 2-day history of rash to back which is painful and burning in nature. Reports has noticed some yellow drainage on her shirt. Denies fever or chills. Denies use of new medications. Denies known exposure to allergen. Denies fever or chills. Reports she sent a picture of the rash to her PCP yesterday who instructed patient to present to the ER for evaluation. Patient reports concern for possible shingles. Review of Systems: Review of Systems: Constitutional: Denies fever or chills Integument: Reports rash to her back Neurologic: Denies headache, focal weakness or sensory changes Complete systems were reviewed and found to be within normal limits, except as documented in this note. Allergies: Allergies: Allergies Coded Allergies Type Severity Reaction Last Updated Verified Sulfa (Sulfonamide Antibiotics) Allergy Intermediate 12/27/19 Yes citric acid Allergy Intermediate 12/27/19 Yes shellfish derived Allergy Intermediate 12/27/19 Yes Physical Exam: PE: Constitutional: Well developed, well nourished, no acute distress, non-toxic appearance HENT: Normocephalic, atraumatic Eyes: Conjunctiva normal, no discharge Neck: Normal range of motion, supple Lungs & Thorax: No respiratory distress, equal chest rise and fall Skin: Warm, dry, lacy rash noted to hold bilateral back extending past midline, serous drainage noted on shirt, no significant erythema, no vesicles or induration noted Extremities: No tenderness, ROM intact, no edema Neurologic: Alert and oriented X 3, no focal deficits noted Psychologic: Affect normal, judgment normal EKG: EKG: [] Radiology/Procedures: Radiology/Procedures: [] Course & Med Decision Making: Course & Med Decision Making Patient presents with lacy rash to bilateral back with some serous drainage. No vesicles or induration noted. Patient denies known exposure to allergen. Denies use of new medication. Symptomatic treatment provided with oral steroid. Empiric antibiotic ointment applied to prevent suprainfection. Patient stable for discharge with outpatient follow-up with PCP/dermatology. Dermatology referral provided. Discussed findings and plan with patient, who ack nowledges understanding and agreement. Adalid Disclaimer: Adalid Disclaimer: This electronic medical record was generated, in whole or in part, using a voice recognition dictation system. Departure Departure: Impression: Primary Impression: Rash and nonspecific skin eruption Disposition: HOME/RESIDENCE PRIOR TO ADM Condition: STABLE Referrals: GABRIEL DO MD (PCP) DICK GILMORE MD Patient Instructions: Rash, [id number] Additional Instructions: Do not soak your wound. You may shower. Clean wound daily with soap and water. Change dressing 2 times daily. Use over the counter antibiotic ointment with each dressing change. Use over the counter Tylenol and/or Ibuprofen for pain or discomfort. Scripts Prednisone (PREDNISONE) 20 Mg Tablet 2 TAB PO DAILY for Rash, #8 TAB Start this prescription tomorrow, Wednesday02/04/20 Prov: NELLIE CARRANZA DO 02/03/20 Mupirocin (MUPIROCIN) 22 Gm Oint...g. 1 FIDENCIO TP TID for Rash for 7 Days, #15 GM Prov: NELLIE CARRANZA DO 02/03/20 Justification of Admission: Justification of Admission: Justification of Admission Dx: N/A Sepsis: Altered Mental Status NELLIE CARRANZA DO Feb 03, 2020 07:06
[2020-02-03] MEDS ORDERED: MUPI22OI2 TP (07:37)
[2020-02-03] MEDS ORDERED: PRED20TA PO (07:37)
[2020-02-03] MEDS ORDERED: BACITRACIN ZINC TOPICAL OINT PACKET. TP ONE (07:40)
[2020-02-03] MEDS ORDERED: IBUPROFEN 600 MG TABLET. PO ONE (07:45)
[2020-02-03] MEDS ORDERED: MUPIROCIN 2% TOPICAL OINTMENT 22GM TUBE. TP ONE (07:45)
[2020-02-03] MEDS ORDERED: DEXAMETHASONE 4 MG TABLET PO ONE (07:45)
== END 2020-02-03 07:55 | disposition home or self-care (01) ==
LOC: ER 07:02
DX: R21 Rash and other nonspecific skin eruption (principal); F41.9 Anxiety disorder, unspecified; M19.90 Unspecified osteoarthritis, unspecified site; K21.9 Gastro-esophageal reflux disease without esophagitis; F32.9 Major depressive disorder, single episode, unspecified; F17.210 Nicotine dependence, cigarettes, uncomplicated; Z87.440 Personal history of urinary (tract) infections; Z86.73 Personal history of transient ischemic attack (TIA), and cerebral infarction without residual deficits; Z86.14 Personal history of Methicillin resistant Staphylococcus aureus infection; Z88.2 Allergy status to sulfonamides; Z91.013 Allergy to seafood; Z88.8 Allergy status to other drugs, medicaments and biological substances
CPT/HCPCS: 99284; J8540

== ENCOUNTER 2020-02-15 15:00 | Inpatient (IN) | payer OTHER, MEDICAID ==
[~2020-02-15] VITALS: Ht 152.4 cm; Wt 96.4 kg
[~2020-02-15 15:00] MED LIST changes: +MUPI22OI2 TP; -PANT40TA5 PO; +PANT40TA6 PO; +PRED20TA PO
--- NOTE | 2020-02-15 15:52 | RAD ---
CHEST AP ONLY History: Reason: SOB / Spl. Instructions: / History: Comparison: December 24, 2019 Findings: Low lung volumes. Bilateral linear opacities. Stable right chest wall port. Unchanged heart size. No pneumothorax. No pleural effusion. No consolidation. Impression: 1. Low lung volumes with linear opacities, likely atelectasis. Electronically signed by: Wilian Garcia DO (02/15/2020 3:50 PM) [facility] [place]
--- NOTE | 2020-02-15 15:52 | EKG ---
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
--- NOTE | 2020-02-15 15:58 | PHYS DOC ---
Past History Past Medical History: CHF Additional Past Medical Histor: stroke, gastroparesis, spinal stenosis, anni disease, stroke (right side Past Surgical History: Cholecystectomy, Hysterectomy Additional Past Surgical Histo: suprapubic catheter Smoking: Cigarettes Alcohol Use: None Drug Use: None General Adult EDM: Chief Complaint: SHORTNESS OF BREATH HPI: HPI: 44-year-old female presents emergency room with increased peripheral swelling. Patient has a CHF history. She is on multiple medications for different things. She is on 2 different diuretics. She states that she has had increased edema last couple days. When she woke up this morning she had increased edema of her upper extremities in addition to her lower extremities. She denies fever or chills. She has shortness of breath but denies chest pain. Review of Systems: Review of Systems: Constitutional: Denies fever or chills Eyes: Denies change in visual acuity HENT: Denies nasal congestion or sore throat Respiratory: shortness of breath Cardiovascular: Denies chest pain. Increased peripheral edema GI: Denies abdominal pain, nausea, vomiting, bloody stools or diarrhea : Denies dysuria Musculoskeletal: Denies back pain or joint pain Integument: Denies rash Neurologic: Denies headache, focal weakness or sensory changes Endocrine: Denies polyuria or polydipsia Lymphatic: Denies swollen glands Psychiatric: Denies depression or anxiety Heart Score: Risk Factors: Risk Factors: DM, Current or recent (<one month) smoker, HTN, HLP, family history of CAD, obesity. Risk Scores: Score 0 - 3: 2.5% MACE over next 6 weeks - Discharge Home Score 4 - 6: 20.3% MACE over next 6 weeks - Admit for Clinical Observation Score 7 - 10: 72.7% MACE over next 6 weeks - Early Invasive Strategies Allergies: Allergies: Allergies Coded Allergies Type Severity Reaction Last Updated Verified Sulfa (Sulfonamide Antibiotics) Allergy Intermediate 02/15/20 Yes citric acid Allergy Intermediate 02/15/20 Yes shellfish derived Allergy Intermediate 02/15/20 Yes Physical Exam: PE: Constitutional: Well developed, well nourished, no acute distress, non-toxic appearance. [] HENT: Normocephalic, atraumatic, bilateral external ears normal, oropharynx moist, no oral exudates, nose normal. [] Eyes: PERRLA, EOMI, conjunctiva normal, no discharge. [] Neck: Normal range of motion, no tenderness, supple, no stridor. [] Cardiovascular:Heart rate regular rhythm, no murmur [] Lungs & Thorax: Bilateral breath sounds clear to auscultation [] Abdomen: Bowel sounds normal, soft, no tenderness, no masses, no pulsatile masses. [] Skin: Warm, dry, no erythema, no rash. [] Back: No tenderness, no CVA tenderness. [] Extremities: No tenderness, no cyanosis, no clubbing, ROM intact, 3+ pitting edema of the bilateral lower extremities up to the thigh. 1+ nonpitting edema of the bilateral upper extremity. Right foot is wrapped up. [] Neurologic: Alert and oriented X 3, normal motor function, normal sensory function, no focal deficits noted. [] Psychologic: Affect normal, judgement normal, mood normal. [] Current Patient Data: Vital Signs: Vital Signs Date Time Temp Pulse Resp B/P (MAP) Pulse Ox O2 Delivery O2 Flow Rate FiO2 02/15/20 15:00 98.6 103 20 123/66 (85) 93 Nasal Cannula 3.0 EKG: EKG: Sinus tachycardia, rate 103, normal axis, no ST elevation or depression. [] Radiology/Procedures: Radiology/Procedures: [] Impressions: CHEST AP ONLY History: Reason: SOB / Spl. Instructions: / History: Comparison: December 24, 2019 Findings: Low lung volumes. Bilateral linear opacities. Stable right chest wall port. Unchanged heart size. No pneumothorax. No pleural effusion. No consolidation. Impression: 1. Low lung volumes with linear opacities, likely atelectasis. Electronically signed by: Wilian Garcia DO (02/15/2020 3:50 PM) [facility] DICTATED AND SIGNED BY: WILIAN GARCIA DO DATE: 02/15/20 8010 CC: RICHARD GLOVER DO; GABRIEL DO MD ~ Course & Med Decision Making: Course & Med Decision Making Pertinent Labs and Imaging studies reviewed. (See chart for details) The patient's labs are significant for hemoglobin of 7.6. She also has chest x- ray findings suggestive of fluid overload in addition to her peripheral edema. I will give her 40 mg of Lasix IV. Patient has a history of hypokalemia so we will give her oral replacement eventhough it is normal at this time. Patient's urinalysis suggestive of UTI. I will treat her with a gram of Rocephin. I spoke with Dr. Simon and he has accepted the patient for observation admission. [] Adalid Disclaimer: Adalid Disclaimer: This electronic medical record was generated, in whole or in part, using a voice recognition dictation system. Departure Departure: Impression: Primary Impression: UTI (urinary tract infection) Additional Impression: CHF (congestive heart failure) Disposition: ADMITTED INPATIENT Admitting Physician: Lenin Simon Condition: STABLE Referrals: GABRIEL DO MD (PCP) Justification of Admission: Justification of Admission: Justification of Admission Dx: Yes Sepsis: Altered Mental Status Comments: CHF, anemia 7.6 RICHARD GLOVER DO Feb 15, 2020 15:58
[2020-02-15 16:01] LABS: BASO # 0.1 x10^3/uL (0.0-0.2); BASO % 1 % (0-3); EOS # 0.1 x10^3/uL (0.0-0.7); EOS % 1 % (0-3); HEMATOCRIT 24.8 % (36.0-47.0); HEMOGLOBIN 7.6 g/dL (12.0-15.5); LYMPH % 9 % (24-48); MEAN CORPUSCULAR HEMOGLOBIN 34 pg (25-35); MEAN CORPUSCULAR HGB CONC 31 g/dL (31-37); MEAN CORPUSCULAR VOLUME 111 fL (79-100); MONO # 0.6 x10^3/uL (0.0-1.1); MONO % 6 % (0-9); NEUT # 9.9 x10^3uL (1.8-7.7); NEUT % 84 % (31-73); PLATELET COUNT 197 x10^3/uL (140-400); RED BLOOD COUNT 2.25 x10^6/uL (3.50-5.40); RED CELL DISTRIBUTION WIDTH 17.3 % (11.5-14.5); WHITE BLOOD COUNT 11.7 x10^3/uL (4.0-11.0)
[2020-02-15 16:16] LABS: ALBUMIN 2.8 g/dL (3.4-5.0); ALBUMIN/GLOBULIN RATIO 0.9 (1.0-1.7); CREATININE 1.3 mg/dL (0.6-1.0); GFR 44.3; POTASSIUM 3.8 mmol/L (3.5-5.1); TOTAL BILIRUBIN 0.5 mg/dL (0.2-1.0); TOTAL PROTEIN 5.8 g/dL (6.4-8.2)
[2020-02-15 16:19] LABS: BILIRUBIN,URINE NEG (NEG); CLARITY,URINE CLOUDY; COLOR,URINE AMBER; GLUCOSE,URINE 100 mg/dL (NEG); NITRITE,URINE POS (NEG)
[2020-02-15 16:20] LABS: BACTERIA,URINE MANY /HPF (0-FEW); SQUAMOUS EPITHELIAL CELL,UR FEW /LPF
[2020-02-15 16:56] LABS: % BANDS 4 % (0-9); % EOS 1 % (0-5); % LYMPHS 7 % (24-48); % METAS 1 % (0-0); % MONOS 4 % (0-10); % MYELOS 2 % (0-0); % SEGS 81 % (35-66)
[2020-02-15 16:57] LABS: ANISOCYTOSIS MOD; PLT ESTIMATE ADEQUATE (ADEQUATE); POLYCHROMASIA SLIGHT
[2020-02-15] MEDS ORDERED: ONDANSETRON PF 4 MG/2 ML VIAL. IVP PRN (17:45)
[2020-02-15] MEDS ORDERED: POTASSIUM CHLORIDE 20 MEQ TABLET.ER. PO ONE (17:45)
[2020-02-15] MEDS ORDERED: FUROSEMIDE 40 MG/4 ML VIAL IVP ONE (17:45)
[2020-02-15] MEDS ORDERED: IV NORMAL SALINE 50ML 50 ML ONE (18:03)
[2020-02-15] MEDS ORDERED: cefTRIAXone SODIUM 1 GM VIAL ONE (18:04)
[2020-02-15] MEDS ORDERED: BUDE10.2 IH (18:15)
[2020-02-15] MEDS ORDERED: OXYC10TA PO (18:15)
[2020-02-15] MEDS ORDERED: METO5TAB4 PO (18:15)
[2020-02-15] MEDS ORDERED: MAGN400T44 PO (18:15)
[2020-02-15] MEDS ORDERED: CEPH500C PO (18:15)
[2020-02-15] MEDS ORDERED: METH1TAB20 PO ×2 (18:15→20:35)
[2020-02-15] MEDS ORDERED: ACCU-CHEK (18:20)
[2020-02-15] MEDS ORDERED: MAGN400O7 PO (18:20)
[2020-02-15] MEDS ORDERED: SENNA (18:20)
[2020-02-15] MEDS ORDERED: FLUT16SP21 NS (18:20)
[2020-02-15] MEDS ORDERED: NYST60PO TP (18:20)
[2020-02-15] MEDS ORDERED: ONDA-84 PO (18:20)
[2020-02-15] MEDS ORDERED: [UNRECOGNIZED DRUG - REMARK] (18:20)
[2020-02-15] MEDS ORDERED: FERR325T14 PO (18:20)
[2020-02-15 19:39] VITALS: BP 101/68
[2020-02-15] MEDS ORDERED: GABA-586 PO (19:39)
[2020-02-15] MEDS ORDERED: TOPI50TA38 PO (20:35)
[2020-02-15] MEDS ORDERED: DULO60CA6 PO (20:35)
[2020-02-15] MEDS ORDERED: MELA10TA2 PO (20:35)
[2020-02-15] MEDS ORDERED: FLUD0.1T PO (20:35)
[2020-02-15] MEDS ORDERED: OMEP20CA16 PO (20:35)
[2020-02-15] MEDS ORDERED: ACET500T33 PO (20:35)
[2020-02-15] MEDS ORDERED: ASCO100T4 PO (20:43)
[2020-02-15] MEDS ORDERED: FLUTICASONE 50MCG/NASAL SPRAY 16GM BOTTLE. NS PRN (20:45)
[2020-02-15] MEDS ORDERED: PANTOPRAZOLE 40 MG TABLET. PO SCH (21:15)
[2020-02-15] MEDS ORDERED: OXYC5TAB4 PO (21:19)
[2020-02-15] MEDS: TOPIRAMATE 25 MG TABLET. PO SCH (21:21)
[2020-02-15] MEDS: ASPIRIN 325 MG TABLET PO SCH (21:21)
[2020-02-15] MEDS: MULTIVITAMIN with MINERAL TABLET. PO SCH (21:21)
[2020-02-15] MEDS: PANTOPRAZOLE 40 MG TABLET. PO SCH (21:21)
[2020-02-15] MEDS: ALPRAZolam 0.25 MG TABLET PO SCH (21:22)
[2020-02-15] MEDS: DULoxetine HCL 60 MG CAPSULE.DR PO SCH (21:22)
[2020-02-15] MEDS: POTASSIUM CHLORIDE 20 MEQ TABLET.ER. PO SCH (21:22)
[2020-02-15] MEDS: BACLOFEN 20 MG TABLET PO SCH (21:22)
[2020-02-15] MEDS: MAGNESIUM OXIDE 400 MG TABLET PO SCH (21:22)
[2020-02-15] MEDS: GABAPENTIN 300 MG CAPSULE. PO SCH (21:22)
[2020-02-15] MEDS: traZODone 100 MG TABLET. PO SCH (21:22)
[2020-02-15] MEDS: TORSEMIDE 20 MG TABLET. PO SCH (21:23)
[2020-02-15] MEDS: ASCORBIC ACID 500 MG TABLET PO SCH (21:23)
[2020-02-15] MEDS: MIRTAZAPINE 30 MG TABLET PO SCH (21:23)
[2020-02-15] MEDS: METHENAMINE HIPPURATE 1 GM TABLET PO SCH (22:02)
[2020-02-15] MEDS: FLUDROCORTISONE 0.1 MG TABLET PO SCH (22:02)
[2020-02-15] MEDS: MELATONIN 3 MG TABLET PO SCH (22:02)
[2020-02-15] MEDS: oxyCODONE IR 5 MG TABLET PO PRN (22:04)
[2020-02-15 22:23] VITALS: BP 106/63
--- NOTE | 2020-02-15 23:19 | NUR ---
The patient, ROSANGELA FLORENCE, 44 y/o, F admitted by UMESH HOLCOMB MD, was given written information regarding hospital policies, unit procedures and contact persons. Pt accompanied onto the unit my EMS personnel and nursing bead supervisor. Pt vital signs assessed and stable. Pt states, "A couple of days ago I started swelling. The forth or fifth day we just couldn't get the swelling to go away. Then this morning i had a harder time breathing and figured I should come in." Pt is on 3L oxygen continuously at home. Reviewed plan of care and home medication list with pt. Valuables were checked and left in room with pt. Call light within reach.
[2020-02-16] VITALS (7 sets, daily range): BP systolic 89–104; BP diastolic 55–66
[2020-02-16] MEDS: ACETAMINOPHEN 500 MG TABLET PO PRN ×2 (02:25→20:59)
[2020-02-16] MEDS: oxyCODONE IR 5 MG TABLET PO PRN ×2 (06:09→13:58)
[2020-02-16 06:40] LABS: BASO % 1 % (0-3); EOS # 0.1 x10^3/uL (0.0-0.7); EOS % 2 % (0-3); HEMATOCRIT 24.9 % (36.0-47.0); HEMOGLOBIN 7.7 g/dL (12.0-15.5); LYMPH % 15 % (24-48); MEAN CORPUSCULAR HEMOGLOBIN 34 pg (25-35); MEAN CORPUSCULAR HGB CONC 31 g/dL (31-37); MEAN CORPUSCULAR VOLUME 110 fL (79-100); MONO # 0.4 x10^3/uL (0.0-1.1); MONO % 5 % (0-9); NEUT # 5.2 x10^3uL (1.8-7.7); NEUT % 78 % (31-73); PLATELET COUNT 188 x10^3/uL (140-400); RED BLOOD COUNT 2.26 x10^6/uL (3.50-5.40); RED CELL DISTRIBUTION WIDTH 16.9 % (11.5-14.5); WHITE BLOOD COUNT 6.7 x10^3/uL (4.0-11.0)
[2020-02-16 07:10] LABS: ALBUMIN 2.5 g/dL (3.4-5.0); ALBUMIN/GLOBULIN RATIO 0.8 (1.0-1.7); CALCIUM 7.8 mg/dL (8.5-10.1); CREATININE 1.4 mg/dL (0.6-1.0); GFR 40.7; MAGNESIUM 2.3 mg/dL (1.8-2.4); POTASSIUM 3.6 mmol/L (3.5-5.1); TOTAL BILIRUBIN 0.5 mg/dL (0.2-1.0); TOTAL PROTEIN 5.5 g/dL (6.4-8.2)
[2020-02-16] MEDS: ASPIRIN 325 MG TABLET PO SCH ×2 (08:20→20:44)
[2020-02-16] MEDS: ASCORBIC ACID 500 MG TABLET PO SCH ×2 (08:21→20:44)
[2020-02-16] MEDS: HYDROCORTISONE 10 MG TABLET PO SCH ×2 (08:21→15:53)
[2020-02-16] MEDS: PANTOPRAZOLE 40 MG TABLET. PO SCH ×2 (08:21→20:44)
[2020-02-16] MEDS: MULTIVITAMIN with MINERAL TABLET. PO SCH ×2 (08:21→20:43)
[2020-02-16] MEDS: MAGNESIUM OXIDE 400 MG TABLET PO SCH ×2 (08:22→20:43)
[2020-02-16] MEDS: TOPIRAMATE 25 MG TABLET. PO SCH ×2 (08:22→20:43)
[2020-02-16] MEDS: GABAPENTIN 300 MG CAPSULE. PO SCH ×3 (08:22→20:43)
[2020-02-16] MEDS: BACLOFEN 20 MG TABLET PO SCH ×3 (08:22→20:43)
[2020-02-16] MEDS: METHENAMINE HIPPURATE 1 GM TABLET PO SCH ×2 (08:23→20:45)
[2020-02-16] MEDS: FLUDROCORTISONE 0.1 MG TABLET PO SCH ×2 (08:23→20:44)
[2020-02-16] MEDS: DULoxetine HCL 60 MG CAPSULE.DR PO SCH ×2 (08:23→20:44)
[2020-02-16] MEDS: POTASSIUM CHLORIDE 20 MEQ TABLET.ER. PO SCH ×3 (08:23→20:44)
[2020-02-16] MEDS: ALPRAZolam 0.25 MG TABLET PO SCH ×2 (08:31→20:43)
[2020-02-16] MEDS: SPIRONOLACTONE 25 MG TABLET PO SCH ×2 (09:00→13:58)
[2020-02-16] MEDS: TORSEMIDE 20 MG TABLET. PO SCH ×2 (09:00→13:57)
[2020-02-16] MEDS ORDERED: oxyCODONE ER 10 MG TAB.ER.12H PO PRN (09:00)
--- NOTE | 2020-02-16 09:53 | NUR ---
NURSING NOTE CONSULT ATTEMPT TO CALL CARDIAC CONSULT IN, UNABLE TO REACH ANYONE AT [phone]. CALLED TO [phone] LEFT CONSULT WITH SCHEDULING. EVAN STORY.
[2020-02-16] MEDS: ONDANSETRON ODT 4 MG TAB.RAPDIS PO PRN ×2 (12:12→20:59)
[2020-02-16] MEDS ORDERED: FUROSEMIDE 40 MG/4 ML VIAL IVP ONE (16:15)
--- NOTE | 2020-02-16 17:36 | HP ---
ADMIT DATE: 02/16/2020 HISTORY OF PRESENT ILLNESS: The patient is a 44-year-old female patient who came to the Emergency Room with complaint of worsening shortness of breath, generalized anasarca with swelling started in her leg and involved in other parts of her body, this started about 5 days ago. She also had cough with mostly whitish sputum and some orthopnea. Denied any chills, rigors, or fever. Denied any dizziness, lightheadedness, or vertigo. On evaluation in the Emergency Room, she was found to have generalized anasarca; however, one of the striking finding is that her H and H has dropped as apparently she was here recently and her hemoglobin on 12/16 was 10, hematocrit 32, and her platelet was 248 and as on arrival to the Emergency Room, her hemoglobin has dropped down to 7.6, hematocrit 24, although her white cell count and platelets are normal. She also has questionable urinary tract infection and therefore she was admitted for ____. 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 She has diabetic gastroparesis, bronchial asthma, chronic obstructive pulmonary disease. She had mild stroke with left-sided weakness, hypertension, history of methicillin-resistant Staphylococcus aureus infection, lumbar spinal stenosis, does have a history of C. diff colitis, pulmonary embolism, hemorrhoids, hiatal hernia, body image disorder, kidney stones, foot drop, anxiety, depression and tobacco use. PAST SURGICAL HISTORY: Significant for tonsillectomy, adenoidectomy, cholecystectomy, gastrectomy, multiple abdominal surgeries, history of ____-tube placement, ventral hernia repair, cyst excision, hysterectomy and most recently right total cuff repair. ALLERGIES: SHE IS ALLERGIC TO SULFA DRUGS, CITRIC ACID AND SHELLFISH. FAMILY HISTORY: She has 2 brothers, both older and alive. Her older brother has diabetes and hypertension, the younger brother has hypertension. His diabetes was ameliorated after he underwent bypass surgery. Her father is still alive at the age of 73. He is known to have myocardial infarction and underwent 5-vessel coronary artery bypass graft surgery. Her mother is still alive at the age of 72 and has had myocardial infarction for which she underwent PCI and stent deployment. SOCIAL HISTORY: She is , has 1 son. She smokes half a pack a day. She does not drink alcohol or use any recreational drugs. 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 MEDICATIONS: She is currently on following medications: She is on methenamine hippurate 1 g twice a day, baclofen 20 mg 3 times a day, spironolactone 25 mg twice a day, aspirin 325 mg twice a day, oxycodone 10 mg every 8 hours as needed, acetaminophen 1000 mg every 8 hours, gabapentin 300 mg 3 times a day, topiramate 50 mg twice a day, duloxetine 60 mg twice a day, mirtazapine 30 mg at bedtime, trazodone 100 mg at bedtime, alprazolam 0.25 mg twice a day, potassium chloride 20 mEq 3 times a day, torsemide 20 mg 3 times a day. She is on fluticasone, Flonase 1 spray to each nostril once a day, magnesium oxide 400 mg twice a day, ondansetron 4 mg she takes 2 tablets every 4 hours as needed, omeprazole 20 mg daily, Protonix 40 mg twice a day, fludrocortisone 200 mcg twice a day, ascorbic acid 1000 mg twice a day, multivitamin 1 tablet twice a day and melatonin 20 mg once a day. REVIEW OF SYSTEMS: As per history of present illness. PHYSICAL EXAMINATION: GENERAL: When I examined her, she was pale, but no jaundice, cyanosis or thyromegaly. No jugular venous distention. No limb edema. VITAL SIGNS: Her heart rate was 109, blood pressure was 106/63, temperature was 98.5, respiratory rate was 20, and oxygen saturation was 91% on 3 liters of oxygen. HEAD, EYES, EARS, NOSE AND THROAT: Showed normocephalic and atraumatic. NECK: Supple. CARDIAC: Normal first and second heart sounds. No gallop or murmur. CHEST: Showed central trachea, equal bilateral chest expansion, air entry, ____. I could not appreciate any crepitation or rhonchi. She has a Port-A-Cath in the right infraclavicular area. ABDOMEN: Markedly distended, soft, nontender. No guarding or rigidity. No organomegaly. All hernial orifice intact. Bowel sounds normal. NEUROLOGIC: She was awake, alert, responding appropriately. All cranial nerves intact. EXTREMITIES: Generalized anasarca without clubbing or cyanosis. IMAGING STUDIES: Her chest x-ray showed low lung volumes with bilateral linear opacities, stable right chest wall port, unchanged heart size. No pneumothorax, no pleural effusion, and no consolidation. LABORATORY DATA: Her white cell count was 11,700; hemoglobin 7.6; hematocrit 24.8; MCV 111; platelets 197,000 with 84% polymorphs; 9% lymphocytes; and 6% monocytes. Her chemistry showed a serum sodium 140, potassium 3.8, chloride 106, bicarbonate 27, anion gap of 7, BUN 22, creatinine 1.3, estimated GFR was 44 mL per minute. Her glucose was 97, calcium was 8. Total bilirubin, AST, ALT, alkaline phosphatase slightly elevated. Her beta-natriuretic peptide was 627. Total protein was 5.8, albumin was 2.8. Her urinalysis showed the urine was chandra, cloudy with a pH of 6, specific gravity of 1.015. Urine showed trace of protein, small amount of glucose, negative for ketones, negative for blood, positive for nitrite, trace leukocyte esterase, 1-2 rbc's, 5-10 wbc's, and many bacteria. ASSESSMENT AND PLAN: In summary, this is a 44-year-old female patient who was admitted with worsening shortness of breath and generalized anasarca. She has questionable urinary tract infection and also her hemoglobin and hematocrit has dropped from 10 and ____ at the end of November down to 7.6 and 24. I did order stool for occult blood and also serum iron, TIBC, and serum ferritin, the results of which is still pending at the time of this dictation. I will also check her vitamin B12 and switch her to IV Lasix and check her weight on a daily basis. UMESH HOLCOMB MD DR: RONALD/shayna JOB#: [id number] / [id number]
--- NOTE | 2020-02-16 20:19 | PN ---
DATE: 02/16/2020 SUBJECTIVE: The patient is resting, slightly propped up in bed, in no apparent respiratory distress. She continued to complain of some shortness of breath, swelling of both legs and leg cramps. PHYSICAL EXAMINATION: GENERAL: When I examined her, she was pale. No jaundice or cyanosis. No lymphadenopathy, no thyromegaly. No jugular venous distention, but generalized anasarca. VITAL SIGNS: Her heart rate was 93, blood pressure was 98/66, temperature was 98.3, respiratory rate was 18 and oxygen saturation was 93% on 3 liters of oxygen. HEAD, EYES, EARS, NOSE AND THROAT: Showed normocephalic, atraumatic. NECK: Supple. HEART: Normal first and second heart sounds. No gallop, rub or murmur. CHEST: Clear to auscultation. No crepitation or rhonchi. ABDOMEN: Distended, soft, nontender. No guarding or rigidity. No organomegaly. All hernial orifice intact. Bowel sounds normal. NEUROLOGIC: She was awake, alert, responding appropriately. All cranial nerves intact. She moves extremities without difficulty, although she is mostly bedbound. Her intake over the last 24 hours was 420, output was 3400. LABORATORY DATA: Her lab work this morning showed a white cell count 6700, hemoglobin 7.7, hematocrit 24.9, MCV 110 and platelets of 188,000 with normal manual differential. Her chemistry showed serum sodium of 143, potassium 3.6, chloride 107, bicarbonate 31, anion gap of 5, BUN 21, creatinine 1.4, estimated GFR was 40 mL per minute. Her glucose was 94, calcium was 7.8, magnesium was 2.3. Total bilirubin, AST, ALT, alkaline phosphatase were all normal. Her total protein was 5.5, albumin was 2.5. ASSESSMENT: 1. Urinary tract infection for which she is now on IV Rocephin 1 gram IV daily. 2. Generalized anasarca and shortness of breath, likely due to third spacing. She is responding well to IV Lasix, so I held her torsemide and started on IV Lasix 40 mg IV daily. Her urine output as of yesterday was 3400 mL. She also has microcytic anemia with hemoglobin and hematocrit that dropped from 10 and 30 down to 7 and 24.9 with an MCV of 110 for which I ordered serum iron, TIBC and serum ferritin as well as vitamin B12. 3. Charles's disease or adrenal insufficiency for which she is on hydrocortisone as well as fludrocortisone. I will also order physical and occupational therapy, daily weight and decide on further management accordingly. UMESH HOLCOMB MD DR: RONALD/shayna JOB#: [id number] / [id number]
[2020-02-16] MEDS: MIRTAZAPINE 30 MG TABLET PO SCH (20:43)
[2020-02-16] MEDS: MELATONIN 3 MG TABLET PO SCH ×2 (20:44→21:00)
[2020-02-16] MEDS: LACTOBACILLUS RHAMNOSUS GG 1 CAPSULE. PO SCH (20:44)
[2020-02-16] MEDS: traZODone 100 MG TABLET. PO SCH (21:00)
[2020-02-17] MEDS: oxyCODONE IR 5 MG TABLET PO PRN ×3 (02:08→19:32)
[2020-02-17 02:09] VITALS: BP 95/61
[2020-02-17 05:30] LABS: HEMATOCRIT 25.2 % (36.0-47.0); HEMOGLOBIN 7.7 g/dL (12.0-15.5); RED BLOOD COUNT 2.27 x10^6/uL (3.50-5.40); RED CELL DISTRIBUTION WIDTH 17.4 % (11.5-14.5); WHITE BLOOD COUNT 6.8 x10^3/uL (4.0-11.0)
[2020-02-17 05:38] LABS: CALCIUM 7.3 mg/dL (8.5-10.1); CREATININE 1.2 mg/dL (0.6-1.0); GFR 48.6; MAGNESIUM 2.4 mg/dL (1.8-2.4); POTASSIUM 3.1 mmol/L (3.5-5.1)
[2020-02-17 06:01] VITALS: BP 93/59
[2020-02-17] MEDS: FLUDROCORTISONE 0.1 MG TABLET PO SCH ×2 (08:31→20:44)
[2020-02-17] MEDS: ALPRAZolam 0.25 MG TABLET PO SCH ×2 (08:31→20:41)
[2020-02-17] MEDS: TOPIRAMATE 25 MG TABLET. PO SCH ×2 (08:31→20:41)
[2020-02-17] MEDS: ASPIRIN 325 MG TABLET PO SCH ×2 (08:31→20:42)
[2020-02-17] MEDS: GABAPENTIN 300 MG CAPSULE. PO SCH ×3 (08:31→20:39)
[2020-02-17] MEDS: MAGNESIUM OXIDE 400 MG TABLET PO SCH ×2 (08:32→20:41)
[2020-02-17] MEDS: ASCORBIC ACID 500 MG TABLET PO SCH ×2 (08:32→20:41)
[2020-02-17] MEDS: POTASSIUM CHLORIDE 20 MEQ TABLET.ER. PO SCH ×4 (08:32→20:40)
[2020-02-17] MEDS: MULTIVITAMIN with MINERAL TABLET. PO SCH ×2 (08:32→20:40)
[2020-02-17] MEDS: LACTOBACILLUS RHAMNOSUS GG 1 CAPSULE. PO SCH ×2 (08:32→20:42)
[2020-02-17] MEDS: DULoxetine HCL 60 MG CAPSULE.DR PO SCH ×2 (08:32→20:39)
[2020-02-17] MEDS: PANTOPRAZOLE 40 MG TABLET. PO SCH ×2 (08:32→20:42)
[2020-02-17] MEDS: BACLOFEN 20 MG TABLET PO SCH ×3 (08:32→20:42)
[2020-02-17] MEDS: HYDROCORTISONE 10 MG TABLET PO SCH ×2 (08:33→17:32)
[2020-02-17] MEDS: METHENAMINE HIPPURATE 1 GM TABLET PO SCH ×2 (08:33→20:45)
[2020-02-17] MEDS: SPIRONOLACTONE 25 MG TABLET PO SCH ×2 (08:33→14:00)
[2020-02-17] MEDS: ONDANSETRON ODT 4 MG TAB.RAPDIS PO PRN (08:43)
[2020-02-17] MEDS ORDERED: FUROSEMIDE 40 MG/4 ML VIAL IVP SCH (09:00)
[2020-02-17 10:24] VITALS: BP 87/55
[2020-02-17] MEDS: NALOXEGOL OXALATE 25 MG TABLET. PO SCH (12:03)
[2020-02-17] MEDS: ACETAMINOPHEN 500 MG TABLET PO PRN (15:23)
[2020-02-17 15:28] VITALS: BP 97/65
--- NOTE | 2020-02-17 15:37 | PN ---
DATE: 02/17/2020 SUBJECTIVE: The patient is resting, slightly propped up in bed, in no apparent respiratory distress. She continued to complain that she is not feeling well, although she could not be more specific. She is responding to IV Lasix and her output over the last 24 hours was 3400. PHYSICAL EXAMINATION: GENERAL: When I examined her this morning, she was pale. No jaundice or cyanosis. No lymphadenopathy, no thyromegaly. No jugular venous distention. She has continued to have generalized anasarca. VITAL SIGNS: Her heart rate was 96, blood pressure was 87/55, temperature was 98.6, respiratory rate was 20, and oxygen saturation was 94%. HEAD, EYES, EARS, NOSE AND THROAT: Normocephalic, atraumatic. NECK: Supple. HEART: Showed normal first and second heart sounds. No gallop, rub or murmur. CHEST: Clear to auscultation. No crepitation or rhonchi. ABDOMEN: Distended, soft, nontender. NEUROLOGIC: She is awake, alert, responding appropriately. All cranial nerves intact. She moves extremities without difficulty. She is mostly bedbound. LABORATORY DATA: Her lab work this morning showed white cell count 6800, hemoglobin 7.7, hematocrit 25, MCV 111 and platelets of 172,000. Her serum sodium was 142, potassium 3.1, chloride 107, bicarbonate 28, anion gap of 7, BUN 20, creatinine was 1.2, estimated GFR was 48 mL per minute. Her glucose 132, calcium was 7.3, magnesium was 2.4. Serum iron, TIBC and iron saturation are all low, indicating anemia of chronic disease. Her serum ferritin is 165. Total protein 5.5, albumin was 2.5. Urinalysis showed that she has trace of leukocyte esterase and 5-10 wbc's and many bacteria. The culture is still pending at the time of this dictation. ASSESSMENT: 1. Urinary tract infection for which she is now on IV Rocephin 1 gram IV daily. The urine culture is still pending at the time of this dictation. 2. Generalized anasarca and shortness of breath, likely due to third spacing. She is responding to IV Lasix. I held her furosemide, started on IV Lasix. Urine output is more than 3000. 3. Anemia that is microcytic, as her hemoglobin and hematocrit dropped from 10 and 30 to ____. Her MCV is high. I did order B12 level, the result of which is still pending at the time of this dictation. 4. Charles's adrenal insufficiency for which she is on hydrocortisone as well as fludrocortisone. PLAN: I will probably add 25% human albumin twice a day. I also ordered Movantik as she is constipated. We will definitely send stool for occult blood. UMESH HOLCOMB MD DR: RONALD/shayna JOB#: [id number] / [id number]
--- NOTE | 2020-02-17 16:27 | PDOC2 ---
CONSULT DOS: DATE: 02/17/20 TIME: 16:20 Reason for Consult: Heart failure Referring Physician: Dr. Simon Chief Complaint Shortness of breath and swelling Source: Chart review, Patient Problem List Problems Medical Problems: (1) CHF (congestive heart failure) Status: Acute (2) UTI (urinary tract infection) Status: Acute History of Present Illness The patient is a 44-year-old female with multiple medical problems who presented to the emergency room with episodes of mildly increasing shortness of breath and increased peripheral swelling. She denied any chest pain. Her initial troponin was normal. EKG showed a sinus rhythm with minimal nonspecific ST segment changes. Chest x-ray showed low lung volumes with some linear opacities and her hemoglobin hematocrit were decreased at 7.6 and 24.8. She has a history of a CVA, heart failure, COPD as well as Driscoll's disease. She has been treated with Lasix with good results. Her hemoglobin hematocrit has remained stable. Cardiovascular: CHF, HTN Pulmonary: COPD CENTRAL NERVOUS SYSTEM: CVA GI: Other (Gastroparesis) Heme/Onc: Iron deficiency Anemia Musculoskeletal: Other (Spinal stenosis) Endocrine: Other (Driscoll's disease) Past Surgical History: Appendectomy, Cholecystectomy, Tonsillectomy, Hysterectomy, Tonsillectomy, Other (Multiple abdominal surgeries) Family History: Coronary Artery Disease, Diabetes, Hypertension Smoke: <1 pack per day ALCOHOL: none Current Medications Current Medications Ceftriaxone Sodium 1 gm/ Sodium Chloride 50 ml @ 100 mls/hr 1X ONCE IV Last administered on 02/15/20 18:07; Start 02/15/20 at 17:45; Stop 02/15/20 at 18:14; Status DC Furosemide (Lasix) 40 mg 1X ONCE IVP Last administered on 02/15/20at 18:09; Start 02/15/20 at 17:45; Stop 02/15/20 at 17:51; Status DC Potassium Chloride (Klor-Con) 40 meq 1X ONCE PO Last administered on 02/15/20 18:08; Start 02/15/20 at 17:45; Stop 02/15/20 at 17:51; Status DC Ondansetron HCl (Zofran) 4 mg PRN Q4HRS PRN IVP NAUSEA/VOMITING Last adm inistered on 02/15/20at 18:07; Start 02/15/20 at 17:45; Stop 02/16/20 at 17:44; Status DC Sodium Chloride 50 ml @ As Directed STK-MED ONCE .ROUTE ; Start 02/15/20 at 18:03; Stop 02/15/20 at 18:03; Status DC Ceftriaxone Sodium (Rocephin) 1 gm STK-MED ONCE .ROUTE ; Start 02/15/20 at 18:04; Stop 02/15/20 at 18:04; Status DC Ceftriaxone Sodium 1 gm/ Sodium Chloride 50 ml @ 100 mls/hr Q24H IV Last administered on 02/16/20at 18:06; Start 02/16/20 at 18:00 Hydrocortisone (Cortef) 20 mg DAILY PO Last administered on 02/17/20 08:33; Start 02/16/20 at 09:00 Hydrocortisone (Cortef) 10 mg DAILY16 PO Last administered on 02/16/20at 15:53; Start 02/16/20 at 16:00 Acetaminophen (Tylenol) 1,000 mg PRN Q8HRS PRN PO MILD PAIN 1-3 Last administered on 02/17/20at 15:23; Start 02/15/20 at 20:45 Alprazolam (Xanax) 0.25 mg BID PO Last administered on 02/17/20 08:31; Start 02/15/20 at 21:00 Aspirin (Steve Aspirin) 325 mg BID PO Last administered on 02/17/20 08:31; Start 02/15/20 at 21:00 Baclofen (Lioresal) 20 mg TID PO Last administered on 02/17/20 14:27; Start 02/15/20 at 21:00 Duloxetine HCl (Cymbalta) 60 mg BID PO Last administered on 02/17/20at 08:32; Start 02/15/20 at 21:00 Fluticasone Propionate (Flonase) 2 spray PRN DAILY PRN NS ALLERGIES; Start 02/15/20 at 20:45 Gabapentin (Neurontin) 300 mg TID PO Last administered on 02/17/20 14:27; Start 02/15/20 at 21:00 Magnesium Oxide (Magnesium Oxide) 400 mg BID PO Last administered on 02/17/20 08:32; Start 02/15/20 at 21:00 Methenamine Hippurate (Hiprex) 1 gm BID PO Last administered on 02/17/20 08:33; Start 02/15/20 at 21:00 Mirtazapine (Remeron) 30 mg QHS PO Last administered on 02/16/20 20:43; Start 02/15/20 at 21:00 Ondansetron HCl (Zofran Odt) 8 mg PRN Q4HRS PRN PO NAUSEA/VOMITING Last administered on 02/17/20 08:43; Start 02/15/20 at 20:45 Pantoprazole Sodium (Protonix) 40 mg BID PO Last administered on 02/17/20 08:32; Start 02/15/20 at 21:00 Spironolactone (Aldactone) 25 mg BID92 PO ; Start 02/16/20 at 09:00 Trazodone HCl (Desyrel) 100 mg QHS PO Last administered on 02/15/20 21:22; Start 02/15/20 at 21:00 Melatonin (Melatonin) 6 mg HS PO Last administered on 02/15/20 22:02; Start 02/15/20 at 21:30 Multivitamins/ Calcium (Thera-M Plus) 1 tab BID PO Last administered on 02/17/20 08:32; Start 02/15/20 at 21:15 Pantoprazole Sodium (Protonix) 40 mg HS PO ; Start 02/15/20 at 21:15; Status Cancel Oxycodone HCl (OxyCONTIN) 10 mg PRN Q8HRS PRN PO MODERATE-SEVERE PAIN; Start 02/16/20 at 09:00; Stop 02/15/20 at 21:53; Status DC Topiramate (Topamax) 50 mg BID PO Last administered on 02/17/20 08:31; Start 02/15/20 at 21:15 Fludrocortisone Acetate (Florinef) 0.2 mg BID PO Last administered on 02/17/20 08:31; Start 02/15/20 at 21:00 Potassium Chloride (Klor-Con) 60 meq TID PO Last administered on 02/16/20 20: 44; Start 02/15/20 at 21:00; Stop 02/17/20 at 06:04; Status DC Torsemide (Demadex) 20 mg TID PO Last administered on 02/16/20 13:57; Start 02/15/20 at 21:00; Stop 02/16/20 at 16:18; Status DC Ascorbic Acid (Vitamin C) 1,000 mg BID PO Last administered on 02/17/20at 08:32; Start 02/15/20 at 21:15 Oxycodone HCl (Roxicodone) 10 mg PRN Q8HRS PRN PO PAIN Last administered on 02/17/20at 10:49; Start 02/15/20 at 22:00 Lactobacillus Rhamnosus (Culturelle) 1 cap BID PO Last administered on 02/17/20at 08:32; Start 02/16/20 at 21:00 Furosemide (Lasix) 40 mg 1X ONCE IVP Last administered on 02/16/20at 16:36; Start 02/16/20 at 16:15; Stop 02/16/20 at 16:23; Status DC Furosemide (Lasix) 40 mg DAILY IVP Last administered on 02/17/20at 08:34; Start 02/17/20 at 09:00 Potassium Chloride (Klor-Con) 60 meq QID PO Last administered on 02/17/20at 14:27; Start 02/17/20 at 09:00 Naloxegol (Movantik) 25 mg DAILY07 PO Last administered on 02/17/20at 12:03; Start 02/17/20 at 12:00 Albumin Human 50 ml @ 50 mls/hr BID IV ; Start 02/17/20 at 21:00 Active Scripts Active Reported Oxycodone Hcl Immed.release (Oxycodone Hcl) 5 Mg Tablet 10 Mg PO PRN Q8HRS PRN Vitamin C (Ascorbic Acid) 100 Mg Tablet 1,000 Mg PO BID Melatonin 10 Mg Tab.mphase 2 Tab PO QHS 30 Days Tylenol Extra Strength (Acetaminophen) 500 Mg Tablet 1,000 Mg PO Q8HRS PRN Fludrocortisone Acetate 0.1 Mg Tablet 2 Tab PO BID Omeprazole 20 Mg Capsule.dr 1 Cap PO HS Topamax (Topiramate) 50 Mg Tablet 1 Tab PO BID 30 Days Methenamine Hippurate 1 Gm Tablet 1 Tab PO BID 30 Days Gabapentin (Gabapentin) 300 Mg Capsule 300 Mg PO TID Fluticasone Propionate Nasal [place] (Fluticasone Propionate) 16 Gm [place].susp 16 Gm NS PRN DAILY PRN Magnesium Oxide 400 Mg Tablet 1 Tab PO BID 30 Days Baclofen 20 Mg Tablet 20 Mg PO TID Ondansetron Odt (Ondansetron) 4 Mg Tab.rapdis 2 Tab PO PRN Q4HRS PRN Potassium Chloride (Potassium Chloride) 20 Meq Tablet.er 3 Tab PO TID Alprazolam 0.25 Mg Tablet 0.25 Mg PO BID Torsemide 20 Mg Tablet 1 Tab PO TID Aspirin 325 Mg Tablet 325 Mg PO BID Mirtazapine 30 Mg Tablet 1 Tab PO QHS Trazodone Hcl 100 Mg Tablet 1 Tab PO QHS Pantoprazole Sodium 40 Mg Tablet. 1 Tab PO BID Cymbalta (Duloxetine Hcl) 60 Mg Capsule. 1 Cap PO BID Spironolactone 25 Mg Tablet 1 Tab PO BID92 Multivitamins (Multivitamin) 1 Each Tablet 1 Tab PO BID Allergies: Coded Allergies: Sulfa (Sulfonamide Antibiotics) (Verified Allergy, Intermediate, 02/15/20) citric acid (Verified Allergy, Intermediate, 02/15/20) honey (Verified Allergy, Intermediate, 02/16/20) shellfish derived (Verified Allergy, Intermediate, 02/15/20) General: YES: Fatigue Respiratory: YES: Shortness of breath, SOB with excertion General: mild distress, Other (Fatigued) HEENT: Atraumatic Lungs: Other (Mildly decreased breath sounds) Heart: Regular rate Abdomen: Normal bowel sounds VITALS Vital Signs Date Time Temp Pulse Resp B/P (MAP) Pulse Ox O2 Delivery O2 Flow Rate FiO2 02/17/20 15:28 98.2 89 18 97/65 (76) 94 02/17/20 11:50 Nasal Cannula 2.0 Labs Laboratory Tests Test 02/15/20 21:50 02/16/20 06:04 02/17/20 05:10 Troponin I Quantitative < 0.017 ng/mL (0-0.055) White Blood Count 6.7 x10^3/uL (4.0-11.0) 6.8 x10^3/uL (4.0-11.0) Red Blood Count 2.26 x10^6/uL (3.50-5.40) 2.27 x10^6/uL (3.50-5.40) Hemoglobin 7.7 g/dL (12.0-15.5) 7.7 g/dL (12.0-15.5) Hematocrit 24.9 % (36.0-47.0) 25.2 % (36.0-47.0) Mean Corpuscular Volume 110 fL (79-100) 111 fL (79-100) Mean Corpuscular Hemoglobin 34 pg (25-35) 34 pg (25-35) Mean Corpuscular Hemoglobin Concent 31 g/dL (31-37) 31 g/dL (31-37) Red Cell Distribution Width 16.9 % (11.5-14.5) 17.4 % (11.5-14.5) Platelet Count 188 x10^3/uL (140-400) 172 x10^3/uL (140-400) Neutrophils (%) (Auto) 78 % (31-73) Lymphocytes (%) (Auto) 15 % (24-48) Monocytes (%) (Auto) 5 % (0-9) Eosinophils (%) (Auto) 2 % (0-3) Basophils (%) (Auto) 1 % (0-3) Neutrophils # (Auto) 5.2 x10^3uL (1.8-7.7) Lymphocytes # (Auto) 1.0 x10^3/uL (1.0-4.8) Monocytes # (Auto) 0.4 x10^3/uL (0.0-1.1) Eosinophils # (Auto) 0.1 x10^3/uL (0.0-0.7) Basophils # (Auto) 0.0 x10^3/uL (0.0-0.2) Sodium Level 143 mmol/L (136-145) 142 mmol/L (136-145) Potassium Level 3.6 mmol/L (3.5-5.1) 3.1 mmol/L (3.5-5.1) Chloride Level 107 mmol/L (98-107) 107 mmol/L (98-107) Carbon Dioxide Level 31 mmol/L (21-32) 28 mmol/L (21-32) Anion Gap 5 (6-14) 7 (6-14) Blood Urea Nitrogen 21 mg/dL (7-20) 20 mg/dL (7-20) Creatinine 1.4 mg/dL (0.6-1.0) 1.2 mg/dL (0.6-1.0) Estimated GFR (Cockcroft-Gault) 40.7 48.6 BUN/Creatinine Ratio 15 (6-20) Glucose Level 94 mg/dL (70-99) 132 mg/dL (70-99) Calcium Level 7.8 mg/dL (8.5-10.1) 7.3 mg/dL (8.5-10.1) Magnesium Level 2.3 mg/dL (1.8-2.4) 2.4 mg/dL (1.8-2.4) Iron Level 32 ug/dL (50-170) Total Iron Binding Capacity 209 ug/dL (250-450) Iron Saturation 15 % (15-34) Ferritin 165 ng/mL (8-252) Total Bilirubin 0.5 mg/dL (0.2-1.0) Aspartate Amino Transf (AST/SGOT) 46 U/L (15-37) Alanine Aminotransferase (ALT/SGPT) 39 U/L (14-59) Alkaline Phosphatase 93 U/L (46-116) Total Protein 5.5 g/dL (6.4-8.2) Albumin 2.5 g/dL (3.4-5.0) Albumin/Globulin Ratio 0.8 (1.0-1.7) Images Chest x-ray with low lung volumes and linear opacities. Assessment/Plan 1. Probable heart failure. Patient is responded to IV diuresis. Her shortness of breath has improved. She denies any chest pain. We will continue present treatments with monitoring of lab. Echocardiogram Wednesday if the patient is still in-house and if she is discharged with follow-up with an outpatient echo. 2. Driscoll's disease. Continue treatment as above. 3. History of a CVA. Neurologically appears stable. 4. Anemia. Hemoglobin of 7.6 with a hematocrit of 24.8. This has remained stable throughout her hospitalization. 5. Diabetes mellitus. As per the primary service. 6. History of COPD. Continue pulmonary treatments. Thank you for allowing us to participate in the care of your patient. ZUHAIR VILLEGAS MD Feb 17, 2020 16:27
[2020-02-17 20:06] VITALS: BP 103/68
[2020-02-17] MEDS: MELATONIN 3 MG TABLET PO SCH (20:39)
[2020-02-17] MEDS: MIRTAZAPINE 30 MG TABLET PO SCH (20:41)
[2020-02-17] MEDS: traZODone 100 MG TABLET. PO SCH (20:41)
[2020-02-17] MEDS: ALBUMIN HUMAN 25% 50 ML IV SCH (20:49)
[2020-02-18] MEDS: oxyCODONE IR 5 MG TABLET PO PRN ×3 (02:17→19:32)
[2020-02-18 05:26] VITALS: BP 100/54
[2020-02-18] MEDS: NALOXEGOL OXALATE 25 MG TABLET. PO SCH (05:42)
[2020-02-18 05:55] LABS: HEMATOCRIT 26.9 % (36.0-47.0)
[2020-02-18 06:03] LABS: CALCIUM 7.5 mg/dL (8.5-10.1); CREATININE 0.9 mg/dL (0.6-1.0); GFR 67.7
[2020-02-18] MEDS: ALBUMIN HUMAN 25% 50 ML IV SCH ×2 (08:47→20:38)
[2020-02-18] MEDS: ASPIRIN 325 MG TABLET PO SCH ×2 (08:47→20:37)
[2020-02-18] MEDS: LACTOBACILLUS RHAMNOSUS GG 1 CAPSULE. PO SCH ×2 (08:47→20:36)
[2020-02-18] MEDS: POTASSIUM CHLORIDE 20 MEQ TABLET.ER. PO SCH ×4 (08:47→20:37)
[2020-02-18] MEDS: TOPIRAMATE 25 MG TABLET. PO SCH ×2 (08:47→20:38)
[2020-02-18] MEDS: GABAPENTIN 300 MG CAPSULE. PO SCH ×3 (08:47→20:37)
[2020-02-18] MEDS: MULTIVITAMIN with MINERAL TABLET. PO SCH ×2 (08:47→20:37)
[2020-02-18] MEDS: BACLOFEN 20 MG TABLET PO SCH ×3 (08:47→20:36)
[2020-02-18] MEDS: ALPRAZolam 0.25 MG TABLET PO SCH ×2 (08:47→20:37)
[2020-02-18] MEDS: METHENAMINE HIPPURATE 1 GM TABLET PO SCH ×2 (08:48→20:37)
[2020-02-18] MEDS: SPIRONOLACTONE 25 MG TABLET PO SCH ×2 (08:48→13:11)
[2020-02-18] MEDS: PANTOPRAZOLE 40 MG TABLET. PO SCH ×2 (08:48→20:37)
[2020-02-18] MEDS: MAGNESIUM OXIDE 400 MG TABLET PO SCH ×2 (08:48→20:36)
[2020-02-18] MEDS: DULoxetine HCL 60 MG CAPSULE.DR PO SCH ×2 (08:48→20:37)
[2020-02-18] MEDS: ASCORBIC ACID 500 MG TABLET PO SCH ×2 (08:48→20:38)
[2020-02-18] MEDS: HYDROCORTISONE 10 MG TABLET PO SCH ×2 (08:49→16:26)
[2020-02-18 08:53] VITALS: BP 104/59
[2020-02-18] MEDS: FLUDROCORTISONE 0.1 MG TABLET PO SCH ×2 (09:01→20:37)
[2020-02-18] MEDS: ACETAMINOPHEN 500 MG TABLET PO PRN (09:01)
[2020-02-18 11:10] VITALS: BP 95/59
[2020-02-18] MEDS ORDERED: FUROSEMIDE 20 MG/2 ML VIAL IVP ONE (13:30)
[2020-02-18 15:31] LABS: FECAL OB PT POSITIVE (NEG)
[2020-02-18 16:25] VITALS: BP 94/57
--- NOTE | 2020-02-18 16:44 | PN ---
DATE: 02/18/2020 SUBJECTIVE: The patient is resting, sitting comfortably in her chair, eating her lunch, continued to complain of some shortness of breath and generalized anasarca, although the swelling is slightly better. PHYSICAL EXAMINATION: GENERAL: When I examined her, she looked pale, but no jaundice, cyanosis or thyromegaly. No jugular venous distention, but generalized anasarca. VITAL SIGNS: Her heart rate was 87, blood pressure was 95/59, temperature 98.2, respiratory rate was 18 and oxygen saturation was 94% on 3 liters of oxygen. HEENT: Showed normocephalic, atraumatic. NECK: Supple. HEART: Showed normal first and second heart sounds. No gallop or murmur. CHEST: Shows central trachea, equal bilateral expansion, air entry, vesicular sounds. No crepitation or rhonchi. ABDOMEN: Distended, soft, nontender. NEUROLOGIC: She was awake, alert, responding appropriately. All her cranial nerves intact. She moves extremities without difficulty. She has a suprapubic catheter in place. Her intake over the last 24 hours was 1570, output was 3825. LABORATORY DATA: As of this morning, her hemoglobin is up to 8, hematocrit 26.9. Her chemistry showed a serum sodium 143, potassium 4, chloride 112, bicarbonate 25, anion gap of 6, BUN 16, creatinine 0.9, estimated GFR was 68 mL per minute. Her glucose 142, calcium was 7.9, magnesium was 2.4. Her serum iron, TIBC, and serum ferritin and iron saturation are all consistent with anemia of chronic disease. Her serum ferritin is high at 165. However, her vitamin B12 level still pending at the time of this dictation. ASSESSMENT: 1. Urinary tract infection for which she is now on IV Rocephin 1 gram IV daily. The urine culture is still pending at the time of this dictation. 2. Probable heart failure, likely acute diastolic responding to IV diuresis. In fact, her kidney function is much improved. Charles's disease, on steroids and fludrocortisone. Anemia, stable. Type 2 diabetes mellitus, history of chronic obstructive pulmonary disease. PLAN: My plan is to continue with IV antibiotic. I will hold on the diuresing her today as her blood pressure is borderline and her potassium is improved this morning at 4. I will probably continue with Lasix 20 mg IV for today and my plan is for her to be discharged home tomorrow. She did have a bowel movement and we will send stool for occult blood. UMESH HOLCOMB MD DR: RONALD/shayna JOB#: [id number] / [id number]
--- NOTE | 2020-02-18 17:10 | PDOC ---
DATE OF SERVICE: DOS: DATE: 02/18/20 TIME: 17:07 SUBJECTIVE: Patient seen and examined OBJECTIVE: Problems: Problems Medical Problems: (1) CHF (congestive heart failure) Status: Acute (2) UTI (urinary tract infection) Status: Acute Vital Signs/I&O: Vital Signs Date Time Temp Pulse Resp B/P (MAP) Pulse Ox O2 Delivery O2 Flow Rate FiO2 02/18/20 16:25 97.6 82 20 94/57 (69) 96 Room Air 02/18/20 12:59 3.0 I & O 02/17/20 02/17/20 02/18/20 15:00 23:00 07:00 Intake Total 340 ml 240 ml Output Total 1450 ml Balance 340 ml -1210 ml Labs: Laboratory Tests Test 02/18/20 05:45 02/18/20 13:15 Hemoglobin 8.0 g/dL (12.0-15.5) L Hematocrit 26.9 % (36.0-47.0) L Sodium Level 143 mmol/L (136-145) Potassium Level 4.0 mmol/L (3.5-5.1) Chloride Level 112 mmol/L (98-107) H Carbon Dioxide Level 25 mmol/L (21-32) Anion Gap 6 (6-14) Blood Urea Nitrogen 16 mg/dL (7-20) Creatinine 0.9 mg/dL (0.6-1.0) Estimated GFR (Cockcroft-Gault) 67.7 Glucose Level 142 mg/dL (70-99) H Calcium Level 7.5 mg/dL (8.5-10.1) L Stool Occult Blood Positive (NEG) Physical Exam: Chest. Mildly decreased breath sounds but improved. CV. Regular rate and rhythm. Abdomen. Soft. Normal bowel sounds. ASSESSMENT: 1. Probable heart failure. Patient is responded to IV diuresis. Her shortness of breath has improved. She denies any chest pain. She looks and feels si gnificantly better today. Echocardiogram. Creatinine improved at 0.9. 2. Charles's disease. Continue treatment as above. 3. History of a CVA. Neurologically appears stable. 4. Anemia. Hemoglobin of 7.6 with a hematocrit of 24.8. Updated hemoglobin hematocrit of 8.0 and 26.9. 5. Diabetes mellitus. As per the primary service. 6. History of COPD. Continue pulmonary treatments. Justification of Admission: Justification of Admission: Justification of Admission Dx: Yes Sepsis: Altered Mental Status ZUHAIR VILLEGAS MD Feb 18, 2020 17:10
[2020-02-18 19:00] VITALS: BP 104/59
[2020-02-18] MEDS: traZODone 100 MG TABLET. PO SCH (20:37)
[2020-02-18] MEDS: MIRTAZAPINE 30 MG TABLET PO SCH (20:37)
[2020-02-18] MEDS: MELATONIN 3 MG TABLET PO SCH (20:38)
[2020-02-18 23:00] VITALS: BP 90/52
[2020-02-19] MEDS: oxyCODONE IR 5 MG TABLET PO PRN ×2 (03:32→12:43)
[2020-02-19] MEDS ORDERED: NALOXEGOL OXALATE 25 MG TABLET. PO SCH (06:00)
[2020-02-19 06:31] VITALS: BP 93/56
[2020-02-19 06:32] LABS: HEMATOCRIT 26.1 % (36.0-47.0); RED BLOOD COUNT 2.36 x10^6/uL (3.50-5.40); RED CELL DISTRIBUTION WIDTH 16.7 % (11.5-14.5); WHITE BLOOD COUNT 6.2 x10^3/uL (4.0-11.0)
[2020-02-19 06:50] LABS: CALCIUM 7.8 mg/dL (8.5-10.1); CREATININE 0.9 mg/dL (0.6-1.0); GFR 67.7; MAGNESIUM 2.3 mg/dL (1.8-2.4); POTASSIUM 4.2 mmol/L (3.5-5.1)
[2020-02-19] MEDS: GABAPENTIN 300 MG CAPSULE. PO SCH (07:58)
[2020-02-19] MEDS: LACTOBACILLUS RHAMNOSUS GG 1 CAPSULE. PO SCH (07:58)
[2020-02-19] MEDS: MAGNESIUM OXIDE 400 MG TABLET PO SCH (07:58)
[2020-02-19] MEDS: MULTIVITAMIN with MINERAL TABLET. PO SCH (07:58)
[2020-02-19] MEDS: TOPIRAMATE 25 MG TABLET. PO SCH (07:58)
[2020-02-19] MEDS: ASPIRIN 325 MG TABLET PO SCH (07:58)
[2020-02-19] MEDS: BACLOFEN 20 MG TABLET PO SCH (07:59)
[2020-02-19] MEDS: ALPRAZolam 0.25 MG TABLET PO SCH (07:59)
[2020-02-19] MEDS: POTASSIUM CHLORIDE 20 MEQ TABLET.ER. PO SCH ×2 (07:59→12:41)
[2020-02-19] MEDS: DULoxetine HCL 60 MG CAPSULE.DR PO SCH (07:59)
[2020-02-19] MEDS: PANTOPRAZOLE 40 MG TABLET. PO SCH (07:59)
[2020-02-19] MEDS: HYDROCORTISONE 10 MG TABLET PO SCH (08:00)
[2020-02-19] MEDS: ASCORBIC ACID 500 MG TABLET PO SCH (08:00)
[2020-02-19] MEDS: ALBUMIN HUMAN 25% 50 ML IV SCH (08:00)
[2020-02-19] MEDS: METHENAMINE HIPPURATE 1 GM TABLET PO SCH (08:01)
[2020-02-19] MEDS: FLUDROCORTISONE 0.1 MG TABLET PO SCH (08:01)
[2020-02-19] MEDS: SPIRONOLACTONE 25 MG TABLET PO SCH ×2 (08:02→08:44)
--- NOTE | 2020-02-19 08:25 | PDOC ---
CARDIO Progress Notes Date & Time Date of Service DATE: 02/19/20 TIME: 08:20 Time of Evaluation 08:20 Subjective Notes No chest pain. SOA improved Vitals Vitals Vital Signs Date Time Temp Pulse Resp B/P (MAP) Pulse Ox O2 Delivery O2 Flow Rate FiO2 02/19/20 06:31 98.4 77 20 93/56 (68) 97 Nasal Cannula 3.0 Weight Weight [ ] Input and Output I.O. Intake and Output 02/19/20 07:00 Intake Total 1180 ml Output Total 3450 ml Balance -2270 ml Intake Oral 1080 ml IV Total 100 ml Output Urine Total 3450 ml Laboratory Labs Laboratory Tests Test 02/18/20 05:45 02/18/20 13:15 02/19/20 05:20 Hemoglobin 8.0 g/dL (12.0-15.5) 8.0 g/dL (12.0-15.5) Hematocrit 26.9 % (36.0-47.0) 26.1 % (36.0-47.0) Sodium Level 143 mmol/L (136-145) 142 mmol/L (136-145) Potassium Level 4.0 mmol/L (3.5-5.1) 4.2 mmol/L (3.5-5.1) Chloride Level 112 mmol/L (98-107) 112 mmol/L (98-107) Carbon Dioxide Level 25 mmol/L (21-32) 22 mmol/L (21-32) Anion Gap 6 (6-14) 8 (6-14) Blood Urea Nitrogen 16 mg/dL (7-20) 11 mg/dL (7-20) Creatinine 0.9 mg/dL (0.6-1.0) 0.9 mg/dL (0.6-1.0) Estimated GFR (Cockcroft-Gault) 67.7 67.7 Glucose Level 142 mg/dL (70-99) 82 mg/dL (70-99) Calcium Level 7.5 mg/dL (8.5-10.1) 7.8 mg/dL (8.5-10.1) Stool Occult Blood Positive (NEG) White Blood Count 6.2 x10^3/uL (4.0-11.0) Red Blood Count 2.36 x10^6/uL (3.50-5.40) Mean Corpuscular Volume 111 fL (79-100) Mean Corpuscular Hemoglobin 34 pg (25-35) Mean Corpuscular Hemoglobin Concent 31 g/dL (31-37) Red Cell Distribution Width 16.7 % (11.5-14.5) Platelet Count 167 x10^3/uL (140-400) Magnesium Level 2.3 mg/dL (1.8-2.4) Microbiology Micro Microbiology 02/15/20 Urine Culture - Final, Complete Physical Exams HEENT: Neck Supple W Full Motion Chest: Symmetric Lungs: Clear to Auscultation Heart: RRR Abdomen: Soft N/T Extremities: No Edema Neurology: alert, oriented, follow commands Assessment Assessment 1. Acute on chronic probable diastolic CHF; better compensated following IV diuresis 2. Bannock's disease; on steroids and fludrocortisone 3. H/o CVA 4. Anemia, iron deficiency 5. Diabetes, II; as per PCP 6. History of COPD. Continue pulmonary treatments. 7. UTI Recommendations Continue spironolactone Resume oral diuresis with torsemide Echo to assess LV systolic function; this can be done as an outpatient 2Gm Na diet 2000cc FR Daily weights. To call if weight gain of 2-3# overnight of 5# in a week Supportive care Follow up in our office with Dr. Hernandez Consider outpatient ischemic evaluation EDI BLISS APRN Feb 19, 2020 08:25
--- NOTE | 2020-02-19 08:46 | NUR ---
NURSING NOTE LOW BP OKAY PER CARDIOLOGY TO GIVE DIURETIC, PT TENDS TO RUN LOW BP AND HAS GERARDO. EVAN STORY.
[2020-02-19] MEDS ORDERED: TORSEMIDE 20 MG TABLET. PO SCH (09:00)
--- NOTE | 2020-02-19 10:17 | NUR ---
NURSING NOTE FOLLOW UP APPTS FOLLOW UP OUTPATIENT STRESS 2DAY TESTING DAY 1 2019 AT 8:15AM DAY 2 2019 AT 9:15AM [facility] FOLLOW UP DR VILLEGAS APRIL 04, 2020 AT 2:15PM AT [facility]. PORSHA GORDON
[2020-02-19 11:01] VITALS: BP 89/57
[2020-02-19 12:35] VITALS: BP 101/65
[2020-02-19] MEDS ORDERED: HEPARIN PF 500 UNIT/5 ML DISP.SYRIN. IVP ONE (14:00)
--- NOTE | 2020-02-19 14:14 | NUR ---
NURSING NOTE: DISCHARGE PT DISCHARGED HOME VIA WHEELCHAIR. PT ACCOMPANIED BY SELF, PICKED UP BY . VERBAL AND WRITTEN INSTRUCTIONS GIVEN TO PATIENT WITH VERBAL UNDERSTANDING. FOLLOWUP INSTRUCTIONS GIVEN TO PATIENT WITH FOLLOW UP APPOINTMENT FOR STRESS TEST AND CARDIOLOGY. NO COMPLICATIONS. EVAN SCHMITT
--- NOTE | 2020-02-19 14:37 | DS ---
DATE OF DISCHARGE: 02/19/2020 HOSPITAL COURSE: The patient is a 44-year-old female patient who was admitted with increasing shortness of breath and marked bilateral lower extremity swelling. In fact, she has generalized anasarca. She also had cough with mostly whitish sputum and some orthopnea. Denied any chills, rigors, or fever. Denied any dizziness, lightheadedness or vertigo. She has also dropped her H and H to 7.6 and 24 from 10 and 32 about 2 months ago, although she denied any hematemesis, melena, or hematochezia. Denied any hemoptysis or epistaxis. There is also some questionable urinary tract infection. The patient was admitted and started on IV antibiotic in the form of Rocephin as well as IV Lasix and we continued on all her other medications. The patient actually did very well. She has hypokalemia that was replenished and in fact her kidney function has improved. The creatinine came down from 1.4 to 0.9 likely due to cardiorenal syndrome and as the patient remained stable, all her symptom has resolved. Her edema has mostly resolved. The decision was made to discharge her home to follow with her primary care physician and arrangement was made for her to be seen at the Cardiology office for echocardiogram and outpatient stress testing and encouraged her also to arrange for an appointment to be seen by cattyman as she probably needs an upper and lower GI endoscopy to find out the source of her bleeding, although her H and H has stabilized. PHYSICAL EXAMINATION: GENERAL: When I saw her this afternoon, she was resting, almost flat in bed, in no apparent distress. He was pale, but no jaundice, cyanosis or thyromegaly. No jugular venous distention. No limb edema. VITAL SIGNS: Her heart rate was 106, blood pressure was 101/65, temperature 98.5, respiratory rate 22, and oxygen saturation was 95% on 3 liters of oxygen. HEAD, EYES, EARS, NOSE AND THROAT: Showed normocephalic, atraumatic. NECK: Supple. HEART: Showed normal first and second heart sounds. No gallop or murmur. CHEST: Clear to auscultation. No crepitation or rhonchi. ABDOMEN: Distended, soft, nontender. No guarding or rigidity. No organomegaly. All hernial orifice intact. Bowel sounds normal. NEUROLOGIC: She was awake, alert, responding appropriately. All cranial nerves intact. She moves extremities without difficulty. Her intake over the last 24 hours was 600, output was ____. LABORATORY DATA: As of this morning, her serum sodium was 142, potassium 4.2, chloride 112, bicarbonate 22, anion gap of 8, BUN 11, creatinine 0.9, estimated GFR was 68 mL per minute. Her glucose was 82, calcium was 7.8 and magnesium was 2.3. Her serum iron, TIBC and iron saturation are all low consistent with anemia of chronic disease. Her serum ferritin, however, was 165. Her most recent CBC showed a white cell count 6200, hemoglobin 8, hematocrit 26, MCV 111 and platelet count of 167,000. Her vitamin B12 level is still pending at the time of this dictation; however, the patient stated that she had a vitamin B12 injection only about a week ago. DISCHARGE MEDICATIONS: The patient was discharged home to continue on following medications: Tylenol every 8 hours as needed, alprazolam 0.25 mg twice a day, ascorbic acid 1000 mg twice a day, aspirin 325 mg twice a day, baclofen 20 mg 3 times a day, duloxetine 60 mg twice a day, fludrocortisone acetate 200 mcg twice a day, Flonase 1 spray to each nostril twice a day, gabapentin 300 mg 3 times a day, magnesium oxide 400 mg twice a day, melatonin 20 mg at bedtime, methenamine hippurate 1 tablet twice a day, mirtazapine 30 mg at bedtime, multivitamin 1 tablet twice a day, omeprazole 20 mg daily at bedtime, ondansetron 4 mg. She takes 8 mg every 4 hours, oxycodone immediate release 10 mg every 8 hours, Protonix 40 mg twice a day, potassium chloride 3 tablets p.o. t.i.d., spironolactone 25 mg twice a day, topiramate for Topamax 50 mg twice a day, ____ 20 mg 3 times a day, and trazodone 100 mg at bedtime. FINAL DISCHARGE DIAGNOSES: 1. Acute on chronic, probably diastolic congestive heart failure, much improved on IV antibiotic. 2. Acute kidney injury, likely due to cardiorenal syndrome, improving. Her creatinine came down from 1.4 to 0.9. 3. 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 4. Type 2 diabetes mellitus. 5. Chronic obstructive pulmonary disease. 6. Anemia, likely due to GI bleeding. Her stool was positive for occult blood. 7. History of cerebrovascular accident, recurrent urinary tract infection, although at this time there is no urine infection. The patient was advised to keep the appointment with the cardiology team for echocardiogram and for ischemic workup as an outpatient. I have also advised her to follow with her primary care physician and to arrange an appointment with the cattyman for upper GI endoscopy. UMESH HOLCOMB MD DR: RONALD/shayna JOB#: [id number] / [id number]
== END 2020-02-19 14:10 | disposition home or self-care (01) | DRG 377 ==
LOC: ER 15:00 → 1 SOUTH 18:29 → OBSVTOIN 02-16 09:54
PROVIDERS: ADMIT Internal Medicine; ATTEND Internal Medicine
DX: K92.2 Gastrointestinal hemorrhage, unspecified (principal); J96.20 Acute and chronic respiratory failure, unspecified whether with hypoxia or hypercapnia; I50.33 Acute on chronic diastolic (congestive) heart failure; I13.0 Hypertensive heart and chronic kidney disease with heart failure and stage 1 through stage 4 chronic kidney disease, or unspecified chronic kidney disease; E27.1 Primary adrenocortical insufficiency; I69.354 Hemiplegia and hemiparesis following cerebral infarction affecting left non-dominant side; J98.11 Atelectasis; N17.9 Acute kidney failure, unspecified; N39.0 Urinary tract infection, site not specified; D50.9 Iron deficiency anemia, unspecified; E11.22 Type 2 diabetes mellitus with diabetic chronic kidney disease; F41.9 Anxiety disorder, unspecified; F32.9 Major depressive disorder, single episode, unspecified; E11.43 Type 2 diabetes mellitus with diabetic autonomic (poly)neuropathy; D63.1 Anemia in chronic kidney disease; E87.6 Hypokalemia; F17.210 Nicotine dependence, cigarettes, uncomplicated; J44.9 Chronic obstructive pulmonary disease, unspecified; M48.00 Spinal stenosis, site unspecified; N18.9 Chronic kidney disease, unspecified; Z82.49 Family history of ischemic heart disease and other diseases of the circulatory system; Z83.3 Family history of diabetes mellitus; Z86.14 Personal history of Methicillin resistant Staphylococcus aureus infection; Z86.19 Personal history of other infectious and parasitic diseases; Z86.711 Personal history of pulmonary embolism; Z87.440 Personal history of urinary (tract) infections; Z87.442 Personal history of urinary calculi; Z90.710 Acquired absence of both cervix and uterus; Z88.2 Allergy status to sulfonamides; Z91.013 Allergy to seafood
CPT/HCPCS: 36415; 71045; 80048; 80053; 81001; 82274; 82607; 82728; 83540; 83550; 83735; 83880; 84484; 85007; 85014; 85018; 85025; 85027; 87086; 93005; 96365; 96375; G0378; G0379; J0696; J1940; J2405; P9046; Q0162; 97535; 99285-25

== ENCOUNTER 2020-02-25 13:06 | Emergency (ER) | payer OTHER, MEDICAID ==
[~2020-02-25] VITALS: Ht 152.4 cm; Wt 96.4 kg
[~2020-02-25 13:06] MED LIST changes: +ACCU-CHEK; +ACET500T33 PO; +BUDE10.2 IH; +CEPH500C PO; +FERR325T14 PO; +FLUT16SP21 NS; +GABA-586 PO; +MAGN400O7 PO; +MAGN400T44 PO; +MELA10TA2 PO; +METH1TAB20 PO; +NYST60PO TP; +OMEP20CA16 PO; +ONDA-84 PO; +OXYC10TA PO; +OXYC5TAB4 PO; +SENNA; +TOPI50TA38 PO; +[UNRECOGNIZED DRUG - REMARK]
[2020-02-25] MEDS ORDERED: DIPH,PERTUSS(ACELL),TET VAC/PF 0.5 ML SYRINGE. VAX IM ONE (14:30)
[2020-02-25 14:40] VITALS: BP 101/72
[2020-02-25] MEDS ORDERED: CEPH-264 PO (15:09)
--- NOTE | 2020-02-25 15:12 | PHYS DOC ---
Past History Past Medical History: Asthma, CHF, COPD, Hypotension, MRSA, Stroke Additional Past Medical Histor: stroke, gastroparesis, spinal stenosis, anni disease, stroke (right side Past Surgical History: Cholecystectomy, Hysterectomy Additional Past Surgical Histo: suprapubic catheter Smoking: Cigarettes Alcohol Use: None Drug Use: None General Adult EDM: Chief Complaint: LACERATION/AVULSION HPI: HPI: 44-year-old female with multiple comorbidities, presents the ED with complaints of sudden onset laceration to her left anterior pugh after she excellently scraped it on a metal bed frame. Not recall her last tetanus. States she is on aspirin but no other blood thinners. Did not hit head or lose consciousness. Is concerned not heal well because of her vascular disease and chronic lower extremity edema. Review of Systems: Review of Systems: Constitutional: Denies fever or chills Eyes: Denies change in visual acuity HENT: Denies nasal congestion or sore throat Respiratory: Denies cough or shortness of breath Cardiovascular: Denies chest pain or edema GI: Denies abdominal pain, nausea, vomiting, or diarrhea : Denies dysuria Musculoskeletal: Denies back pain or joint pain Integument: Denies rash Neurologic: Denies headache, focal weakness or sensory changes Endocrine: Denies polyuria or polydipsia Lymphatic: Denies swollen glands Psychiatric: Denies depression or anxiety Heart Score: Risk Factors: Risk Factors: DM, Current or recent (<one month) smoker, HTN, HLP, family history of CAD, obesity. Risk Scores: Score 0 - 3: 2.5% MACE over next 6 weeks - Discharge Home Score 4 - 6: 20.3% MACE over next 6 weeks - Admit for Clinical Observation Score 7 - 10: 72.7% MACE over next 6 weeks - Early Invasive Strategies Current Medications: Current Meds: Current Medications Medications (Trade) Dose Ordered Sig/Mani Start Time Stop Time Status Last Admin Dose Admin Diphtheria/ Pertussis/Tetanus Vacc (ADACEL TDap SYRINGE) 0.5 ml ONCE ONCE 02/25/20 14:30 02/25/20 14:31 DC Allergies: Allergies: Allergies Coded Allergies Type Severity Reaction Last Updated Verified Sulfa (Sulfonamide Antibiotics) Allergy Intermediate 02/15/20 Yes citric acid Allergy Intermediate 02/15/20 Yes honey Allergy Intermediate 02/16/20 Yes shellfish derived Allergy Intermediate 8/27/20 Yes Physical Exam: PE: Constitutional: no acute distress, non-toxic appearance. [] HENT: Normocephalic, atraumatic, bilateral external ears normal, oropharynx moist, no oral exudates, nose normal. [] Eyes: EOMI, conjunctiva normal, no discharge. [] Neck: Normal range of motion, no tenderness, supple, no stridor. [] Cardiovascular:Heart rate regular rhythm, no murmur [] Lungs & Thorax: on supplemental oxygen, speaking in full sentences Abdomen: Bowel sounds normal, soft, no tenderness, no masses, no pulsatile masses. [] Skin: Warm, dry, no erythema, Back: No tenderness, 4 x 5 cm U-shaped skin flap over anterior mid pugh approximately 3 mm deep with subcutaneous fat tissue exposed, patient with normal range of motion-able to plantar flex and flex her left foot, skin flap is dark blue-contused? lack of blood supply? Extremities: No bone tenderness, no cyanosis, no clubbing, ROM intact, +1/4 bl edema, no pain at wrist or ankle joints, DP and PT pulses intact, 2.5x2x5 ulcer to proximal left forearm with no surrounding erythema, patient reports this is the site of her ruptured blister, is healing appropriately with underlying granulation tissue Neurologic: Alert and oriented X 3, normal motor function, normal sensory function, no focal deficits noted. [] Psychologic: Affect normal, judgement normal, mood normal : indwelling catheter, dark urine, not cloudy Current Patient Data: Vital Signs: Vital Signs Date Time Temp Pulse Resp B/P (MAP) Pulse Ox O2 Delivery O2 Flow Rate FiO2 02/25/20 13:10 99.0 90 18 103/74 (84) 96 Nasal Cannula 3.0 EKG: EKG: [] Radiology/Procedures: Radiology/Procedures: Indication: Left anterior leg laceration Procedure: The patient was placed in the appropriate position and anesthesia around the wound margins with 1% lidocaine. The area was then irrigated. The laceration was closed with a total of 14 sutures (4-0 and some 3-0). The wound area was then dressed with antibiotic ointment and sterile dressings. Total repaired wound length: 5 x 4 cm. Other Items: The patient tolerated the procedure . Complications: Skin flap with wound margins well aligned, there is tension to the site and blue coloration of the skin flap -tissue is likely . Patient on aspirin and mild nonpulsatile bleeding weeps through suture sites. Will prescribe Keflex given multiple comorbidities to prevent infection.[] Course & Med Decision Making: Course & Med Decision Making Pertinent Labs and Imaging studies reviewed. (See chart for details) Accidental left anterior leg laceration status post suture repair. Wound care instructions given to patient-pt well knowledgable regarding wound dressings given a h/o ruptured blister to proximal left forearm-no infection or cellulitis. Encouraged urgent outpatient follow-up with PMD for suture removal in 7 to 10 days and a wound care check. Life-threatening processes were considered but are low suspicion at this time, given history and physical exam. Pt was educated on all prescription medications and adverse effects. All bhupendra matias's questions were answered and pt was stable at time of discharge. Differential includes fracture, dislocation, laceration, osteomyelitis, compartment syndrome, neurovascular injury or deficit, infection (abscess, cellulitis, septic arthritis), tendon or ligament injury. I spoken with the patient and her caregivers. I explained the patient's condition, diagnoses and treatment plan based on the information available to me at this time. I have answered the patient and her caregiver's questions and ad dressed any concerns. The patient and her caregivers have a good understanding of patient's diagnosis, condition and treatment plan as can be expected at this point. Vital signs have been stable. Patient's condition is stable and appropriate for discharge from the emergency department. Patient will pursue further outpatient evaluation with primary care physician or other designated or consulting physician as outlined in the discharge instructions. The patient and/or caregivers are agreeable to this plan of care and follow-up instructions have been explained in detail. The patient and/or caregivers have received these instructions in written form and have expressed an understanding of the discharge instructions. The patient and/or caregivers are aware that any significant change of condition or worsening of symptoms should prompt immediate return to this or the closest emergency department or call to 911. Adalid Disclaimer: Adalid Disclaimer: This electronic medical record was generated, in whole or in part, using a voice recognition dictation system. Departure Departure: Impression: Primary Impression: Laceration of leg, left Additional Impression: Need for tetanus, diphtheria, and acellular pertussis (Tdap) vaccine Disposition: 01 HOME/RESIDENCE PRIOR TO ADM Condition: STABLE Referrals: GABRIEL DO MD (PCP) Suture removal in 7 to 10 days, follow-up for wound care check Patient Instructions: Laceration Care, Adult, Sutured Wound Care Scripts Cephalexin (KEFLEX) 500 Mg Capsule 1 CAP PO BID for wound for 7 Days, #14 CAP 0 Refills Prov: NOELLE ACHARYA DO 02/25/20 Justification of Admission: Justification of Admission: Justification of Admission Dx: N/A Sepsis: Altered Mental Status NOELLE ACHARYA DO Feb 25, 2020 15:11
[2020-02-25] MEDS ORDERED: NEOMY/BACITR/POLYMYXIN OINT PACKET. TP ONE (15:15)
== END 2020-02-25 15:39 | disposition home or self-care (01) ==
LOC: ER 13:06
DX: S81.812A Laceration without foreign body, left lower leg, initial encounter (principal); J44.9 Chronic obstructive pulmonary disease, unspecified; I50.9 Heart failure, unspecified; F17.210 Nicotine dependence, cigarettes, uncomplicated; Z86.73 Personal history of transient ischemic attack (TIA), and cerebral infarction without residual deficits; Z86.14 Personal history of Methicillin resistant Staphylococcus aureus infection; Z88.2 Allergy status to sulfonamides; Z91.018 Allergy to other foods; W26.8XXA Contact with other sharp object(s), not elsewhere classified, initial encounter; Y93.89 Activity, other specified; Y92.89 Other specified places as the place of occurrence of the external cause; Y99.8 Other external cause status
CPT/HCPCS: 12004; 90471; 90715; 99283

== ENCOUNTER 2020-02-29 12:54 | Emergency (ER) | payer OTHER, MEDICAID ==
[~2020-02-29] VITALS: Ht 152.4 cm; Wt 92.0 kg
[2020-02-29 12:58] VITALS: BP 109/67
--- NOTE | 2020-02-29 13:40 | PHYS DOC ---
Past History Past Medical History: Asthma, CHF, COPD, Hypotension, MRSA, Stroke Additional Past Medical Histor: stroke, gastroparesis, spinal stenosis, anni disease, stroke (right side Past Surgical History: Cholecystectomy, Hysterectomy Additional Past Surgical Histo: suprapubic catheter Smoking: Cigarettes Alcohol Use: None Drug Use: None General Adult EDM: Chief Complaint: WOUND CHECK HPI: HPI: Patient is a 43-year-old female who presented to ER today for evaluation of wound check on her left leg. Patient cut her left anterior leg on a bed frame on February 24, she was evaluated here, suture was placed, she was given tetanus shot, she was given Keflex to take at home. Patient is on levaquin for indwelling Ellis catheter as well. Patient has been doing okay, she has history of CHF, so her legs has been swollen. Patient complained of pain in the left calf area that radiated up to her left thigh area, home health nurse came out to check on her today and noticed some clear drainage from the wound so she was sent here for evaluation. Review of Systems: Review of Systems: Constitutional: Denies fever or chills Eyes: Denies change in visual acuity HENT: Denies nasal congestion or sore throat Respiratory: Denies cough or shortness of breath Cardiovascular: Denies chest pain or edema GI: Denies abdominal pain, nausea, vomiting, bloody stools or diarrhea : Denies dysuria Musculoskeletal: Left leg pain and swelling Integument: Denies rash Neurologic: Denies headache, focal weakness or sensory changes Endocrine: Denies polyuria or polydipsia Lymphatic: Denies swollen glands Psychiatric: Denies depression or anxiety Heart Score: Risk Factors: Risk Factors: DM, Current or recent (<one month) smoker, HTN, HLP, family history of CAD, obesity. Risk Scores: Score 0 - 3: 2.5% MACE over next 6 weeks - Discharge Home Score 4 - 6: 20.3% MACE over next 6 weeks - Admit for Clinical Observation Score 7 - 10: 72.7% MACE over next 6 weeks - Early Invasive Strategies Allergies: Allergies: Allergies Coded Allergies Type Severity Reaction Last Updated Verified Sulfa (Sulfonamide Antibiotics) Allergy Intermediate 02/15/20 Yes citric acid Allergy Intermediate 02/15/20 Yes honey Allergy Intermediate 02/16/20 Yes shellfish derived Allergy Intermediate 02/15/20 Yes Physical Exam: PE: Constitutional: Well developed, well nourished, no acute distress, non-toxic appearance. [] HENT: Normocephalic, atraumatic, bilateral external ears normal, oropharynx moist, no oral exudates, nose normal. [] Eyes: PERRLA, EOMI, conjunctiva normal, no discharge. [] Neck: Normal range of motion, no tenderness, supple, no stridor. [] Cardiovascular:Heart rate regular rhythm, no murmur [] Lungs & Thorax: Bilateral breath sounds clear to auscultation [] Abdomen: Bowel sounds normal, soft, no tenderness, no masses, no pulsatile masses. [] Skin: Warm, dry, laceration wound with sutures in place on anterior part of left leg with clear drainage, no purulent drainage. The wound is not indurated, no erythema, no evidence of infection. Back: No tenderness, no CVA tenderness. [] Extremities: No tenderness, no cyanosis, no clubbing, ROM intact, bilateral lower extremity pitting edema, there is tenderness along the calf of left leg. Neurologic: Alert and oriented X 3, normal motor function, normal sensory function, no focal deficits noted. [] Psychologic: Affect normal, judgement normal, mood normal. [] Current Patient Data: Vital Signs: Vital Signs Date Time Temp Pulse Resp B/P (MAP) Pulse Ox O2 Delivery O2 Flow Rate FiO2 02/29/20 12:58 99.1 105 16 109/67 (81) 90 Room Air EKG: EKG: [] Radiology/Procedures: Radiology/Procedures: [][address] [address] IMAGING REPORT Signed PATIENT: ROSANGELA FLORENCE ACCOUNT: [id number] : 1975 LOCATION: ER AGE: 44 SEX: F EXAM STATUS: REG ER ORD. PHYSICIAN: CHAPARRO SANTIAGO DO REASON: left leg pain and swelling PROCEDURE: VENOUS LOWER EXTREMITY LEFT INDICATION: Reason: left leg pain and swelling / Spl. Instructions: / History: COMPARISON: None. TECHNIQUE: Grayscale, color and doppler ultrasound images were obtained of the left lower extremity venous vasculature. LEFT: No thrombus identified in the common femoral vein, femoral vein, popliteal vein. IMPRESSION: * No thrombus identified in deep venous system of the left lower extremity. Calf veins are not well evaluated secondary to overlying structures obscuring Electronically signed by: Tarun Lee MD (02/29/2020 1:56 PM) [id number] DICTATED AND SIGNED BY: TARUN LEE MD DATE: 02/29/20 1356 CC: GABRIEL DO MD; CHAPARRO SANTIAGO DO ~ Course & Med Decision Making: Course & Med Decision Making Pertinent Labs and Imaging studies reviewed. (See chart for details) Patient is a 44-year-old female who is in the ER for the left leg wound. Patient cut her left leg against a metal bed rail on February 24, she was evaluated here and the laceration was repaired with sutures. Patient was put on Keflex prophylactically against infection, her wound today did not appear to be infected. Patient will be discharged home, she need to follow-up with the wound care center at [facility] for follow-up. Dragon Disclaimer: Dragon Disclaimer: This electronic medical record was generated, in whole or in part, using a voice recognition dictation system. Departure Departure: Impression: Primary Impression: Encounter for re-check of laceration wound Additional Impression: Leg pain, left Disposition: 01 HOME/RESIDENCE PRIOR TO ADM Condition: STABLE Referrals: GABRIEL DO MD (PCP) please follow up with your family doctor in 2 days for reevaluation. KLAUDIA RAMEY DO PLEASE FOLLOW UP WITH THE WOUND CARE DOCTOR AT [facility] IN 1-2 DAYS Patient Instructions: Leg Cramps, Sutured Wound Care Additional Instructions: Thank you for visiting our Emergency Department. We appreciate you trusting us with your care. If any additional problems come up don't hesitate to return to visit us. Please follow up with your primary care provider so they can plan additional care if needed and know about the problem that you had. If symptoms worsen come back to the Emergency Department. Any concerning symptoms that start such as chest pain, shortness of air, weakness or numbness on one side of the body, running high fevers or any other concerning symptoms return to the ER. PLEASE CONTINUE TAKING YOUR ANTIBIOTIC DIRECTED. Justification of Admission: Justification of Admission: Justification of Admission Dx: N/A Sepsis: Altered Mental Status CHAPARRO SANTIAGO DO Feb 29, 2020 13:40
--- NOTE | 2020-02-29 13:59 | RAD ---
INDICATION: Reason: left leg pain and swelling / Spl. Instructions: / History: COMPARISON: None. TECHNIQUE: Grayscale, color and doppler ultrasound images were obtained of the left lower extremity venous vasculature. LEFT: No thrombus identified in the common femoral vein, femoral vein, popliteal vein. IMPRESSION: * No thrombus identified in deep venous system of the left lower extremity. Calf veins are not well evaluated secondary to overlying structures obscuring Electronically signed by: Abelardo Holt MD (02/29/2020 1:56 PM) [id number]
== END 2020-02-29 14:40 | disposition home or self-care (01) ==
LOC: ER 12:54
DX: S81.812D Laceration without foreign body, left lower leg, subsequent encounter (principal); M79.605 Pain in left leg; J44.9 Chronic obstructive pulmonary disease, unspecified; I50.9 Heart failure, unspecified; Z86.73 Personal history of transient ischemic attack (TIA), and cerebral infarction without residual deficits; Z86.14 Personal history of Methicillin resistant Staphylococcus aureus infection; F17.210 Nicotine dependence, cigarettes, uncomplicated; Z88.2 Allergy status to sulfonamides; Z88.8 Allergy status to other drugs, medicaments and biological substances; Z91.018 Allergy to other foods; X58.XXXD Exposure to other specified factors, subsequent encounter
CPT/HCPCS: 93971; 99284

== ENCOUNTER 2020-03-14 13:26 | Inpatient (IN) | payer OTHER, MEDICAID ==
[~2020-03-14] VITALS: Ht 152.4 cm; Wt 98.5 kg
[2020-03-14] MEDS ORDERED: IV NORMAL SALINE 1,000ML 1,000 ML IV ONE ×2 (13:45→17:15)
[2020-03-14] MEDS ORDERED: VANCOMYCIN 2 GM in IV NORMAL SALINE 500ML 500 ML IV ONE (14:00)
--- NOTE | 2020-03-14 14:20 | PHYS DOC ---
Past History Past Medical History: Asthma, CHF, COPD, Hypotension, MRSA, Stroke Additional Past Medical Histor: stroke, gastroparesis, spinal stenosis, anni disease, stroke (right side Past Surgical History: Cholecystectomy, Hysterectomy Additional Past Surgical Histo: suprapubic catheter Smoking: Cigarettes Alcohol Use: None Drug Use: None General Adult EDM: Chief Complaint: WOUND CHECK HPI: HPI: The history was obtained from the patient. Patient is a 44-year-old female with PMH gastroparesis status post gastrectomy, Anni's disease who presents with a chief complaint of lower extremity wounds. Patient states she has had lower extremity wounds to her left pugh and right foot and ankle for the past 3 weeks. She notes that her left pugh wound started with a laceration 3 weeks ago that was repaired. She states that she just had sutures removed approximately 4 days ago. She states she is been on multiple antibiotics for chronic festering wound. She states she has had chronic wounds in the past that are slow to heal. She states she is required hospitalization for antibiotics in the past. She notes after developing a left anterior pugh wound that she developed wounds of her right foot and ankle as well as her left elbow. She states the wounds are painful to touch. States they are warm and red. She notes purulent drainage. Does note a history of MRSA. Denies any history of IV drug use. States that they think her delayed wound healing is due to nutritional deficiencies given she has had a gastrectomy secondary to gastroparesis. States she does get her nutrition through oral intake. Does note an allergy to sulfa antibiotics. No other complaints. Review of Systems: Review of Systems: Constitutional: Denies fever or chills Eyes: Denies change in visual acuity HENT: Denies nasal congestion or sore throat Respiratory: Denies cough or shortness of breath Cardiovascular: Denies chest pain or edema GI: Denies abdominal pain, nausea, vomiting, bloody stools or diarrhea : Denies dysuria Musculoskeletal: Denies back pain or joint pain Integument: Positive for multiple wounds Neurologic: Denies headache, focal weakness or sensory changes Endocrine: Denies polyuria or polydipsia Lymphatic: Denies swollen glands Psychiatric: Denies depression or anxiety Heart Score: Risk Factors: Risk Factors: DM, Current or recent (<one month) smoker, HTN, HLP, family history of CAD, obesity. Risk Scores: Score 0 - 3: 2.5% MACE over next 6 weeks - Discharge Home Score 4 - 6: 20.3% MACE over next 6 weeks - Admit for Clinical Observation Score 7 - 10: 72.7% MACE over next 6 weeks - Early Invasive Strategies Current Medications: Current Meds: Current Medications Medications (Trade) Dose Ordered Sig/Mani Start Time Stop Time Status Last Admin Dose Admin Sodium Chloride 1,000 ml @ 1,000 mls/hr 1X ONCE 03/14/20 13:45 03/14/20 14:44 Vancomycin HCl 2 gm/Sodium Chloride 500 ml @ 250 mls/hr 1X ONCE 03/14/20 14:00 03/14/20 15:59 Allergies: Allergies: Allergies Coded Allergies Type Severity Reaction Last Updated Verified Sulfa (Sulfonamide Antibiotics) Allergy Intermediate 02/15/20 Yes citric acid Allergy Intermediate 02/15/20 Yes honey Allergy Intermediate 02/16/20 Yes shellfish derived Allergy Intermediate 02/15/20 Yes Physical Exam: PE: Constitutional: Well developed, well nourished, no acute distress, non-toxic appearance. [] HENT: Normocephalic, atraumatic, bilateral external ears normal, oropharynx moist, no oral exudates, nose normal. [] Eyes: PERRLA, EOMI, conjunctiva normal, no discharge. [] Neck: Normal range of motion, no tenderness, supple, no stridor. [] Cardiovascular:Heart rate regular rhythm, no murmur [] Lungs & Thorax: Bilateral breath sounds clear to auscultation [] Abdomen: soft, no tenderness, no masses, no pulsatile masses. Indwelling Ellis catheter noted. [] Skin: Warm, dry, no erythema, no rash. [] Back: No tenderness, no CVA tenderness. [] Extremities: Left anterior pugh with a 3 cm x 4 cm purulent appearing superficial wound. No palpable areas of fluctuance. Surrounding induration and erythema. No crepitus palpated. Multiple 1 x 1 cm ulcerative purulent appearing wounds to the right foot and ankle. 2 x 2 centimeter wound to the left olecranon. Neurologic: Alert and oriented X 3, normal motor function, normal sensory function, no focal deficits noted. [] Psychologic: Affect normal, judgement normal, mood normal. [] Current Patient Data: Labs: Laboratory Tests Test 03/14/20 14:58 White Blood Count 9.8 x10^3/uL Red Blood Count 2.85 x10^6/uL Hemoglobin 9.0 g/dL Hematocrit 29.5 % Mean Corpuscular Volume 104 fL Mean Corpuscular Hemoglobin 32 pg Mean Corpuscular Hemoglobin Concent 30 g/dL Red Cell Distribution Width 19.9 % Platelet Count 183 x10^3/uL Neutrophils (%) (Auto) 72 % Lymphocytes (%) (Auto) 18 % Monocytes (%) (Auto) 6 % Eosinophils (%) (Auto) 3 % Basophils (%) (Auto) 1 % Neutrophils # (Auto) 7.0 x10^3uL Lymphocytes # (Auto) 1.8 x10^3/uL Monocytes # (Auto) 0.6 x10^3/uL Eosinophils # (Auto) 0.3 x10^3/uL Basophils # (Auto) 0.1 x10^3/uL Sodium Level 141 mmol/L Potassium Level 3.7 mmol/L Chloride Level 109 mmol/L Carbon Dioxide Level 25 mmol/L Anion Gap 7 Blood Urea Nitrogen 9 mg/dL Creatinine 1.2 mg/dL Estimated GFR (Cockcroft-Gault) 48.6 Glucose Level 120 mg/dL Calcium Level 8.3 mg/dL Current Medications Medications (Trade) Dose Ordered Sig/Mani Route PRN Reason Start Time Stop Time Status Last Admin Dose Admin Vancomycin HCl 2 gm/Sodium Chloride 500 ml @ 250 mls/hr 1X ONCE IV 03/14/20 14:00 03/14/20 15:59 03/14/20 15:16 Sodium Chloride 1,000 ml @ 1,000 mls/hr 1X ONCE IV 03/14/20 13:45 03/14/20 14:44 DC 03/14/20 15:16 Morphine Sulfate (Morphine 4mg Syringe) 4 mg 1X ONCE IV 03/14/20 15:30 03/14/20 15:31 DC 03/14/20 15:32 EKG: EKG: [] Radiology/Procedures: Radiology/Procedures: [address] [address] IMAGING REPORT Signed PATIENT: ROSANGELA FLORENCE ACCOUNT: [id number] : 1975 LOCATION: ER AGE: 44 SEX: F EXAM STATUS: REG ER ORD. PHYSICIAN: ERNESTO BATISTA DO REASON: R foot pain with overlyign wounds. concern for osteo PROCEDURE: FOOT RIGHT 3V RIGHT FOOT AP LATERAL OBLIQUE Clinical Indication: Reason: R foot pain with overlyign wounds. concern for osteo / Spl. Instructions: / History: Comparison: None. Findings: There is no acute fracture or dislocation. The bony alignment is normal. Mineralization is normal. No bony erosion. Small calcaneal bone spurs. There is severe dorsal soft tissue swelling of the foot. IMPRESSION: 1. No radiographic evidence of osteomyelitis. 2. No acute fracture. 3. There is severe dorsal soft tissue swelling. Electronically signed by: Rio Larsen MD (03/14/2020 3:21 PM) [facility] DICTATED AND SIGNED BY: RIO LARSEN MD DATE: 03/14/20 152 CC: GABRIEL DO MD; ERNESTO BATISTA DO ~ [] Course & Med Decision Making: Course & Med Decision Making Pertinent Labs and Imaging studies reviewed. (See chart for details) [] Patient is a 44-year-old female presents with chief complaint of chronically infected wounds to her lower extremities and left elbow. She notes she is been on multiple antibiotics over the last 3 weeks with out improvement of her wounds. Clinically the patient does show signs of surrounding erythema and induration of the wounds. No palpable areas of fluctuance. Plain film imaging of the right foot reveals no radiographic signs of osteomyelitis. Labs grossly unremarkable. Hemoglobin 9.0 consistent with baseline. Creatinine 1.2 also consistent with baseline. Given her failed multiple outpatient about actually given IV vancomycin. Blood cultures obtained and pending. She will be hospitalized for further treatment. Adalid Disclaimer: Adalid Disclaimer: This electronic medical record was generated, in whole or in part, using a voice recognition dictation system. Departure Departure: Impression: Primary Impression: Cellulitis Qualified Codes: L03.116 - Cellulitis of left lower limb Disposition: ADMITTED INPATIENT Condition: STABLE Referrals: GABRIEL DO MD (PCP) Justification of Admission: Justification of Admission: Justification of Admission Dx: Yes Cellulitis: Cellulitis ERNESTO BATISTA DO Mar 14, 2020 14:20
--- NOTE | 2020-03-14 15:24 | RAD ---
RIGHT FOOT AP LATERAL OBLIQUE Clinical Indication: Reason: R foot pain with overlyign wounds. concern for osteo / Spl. Instructions: / History: Comparison: None. Findings: There is no acute fracture or dislocation. The bony alignment is normal. Mineralization is normal. No bony erosion. Small calcaneal bone spurs. There is severe dorsal soft tissue swelling of the foot. IMPRESSION: 1. No radiographic evidence of osteomyelitis. 2. No acute fracture. 3. There is severe dorsal soft tissue swelling. Electronically signed by: Rio Larsen MD (03/14/2020 3:21 PM) [facility]
[2020-03-14 15:27] LABS: BASO # 0.1 x10^3/uL (0.0-0.2); BASO % 1 % (0-3); EOS # 0.3 x10^3/uL (0.0-0.7); EOS % 3 % (0-3); HEMATOCRIT 29.5 % (36.0-47.0); LYMPH # 1.8 x10^3/uL (1.0-4.8); LYMPH % 18 % (24-48); MEAN CORPUSCULAR HEMOGLOBIN 32 pg (25-35); MEAN CORPUSCULAR HGB CONC 30 g/dL (31-37); MEAN CORPUSCULAR VOLUME 104 fL (79-100); MONO # 0.6 x10^3/uL (0.0-1.1); MONO % 6 % (0-9); NEUT % 72 % (31-73); PLATELET COUNT 183 x10^3/uL (140-400); RED BLOOD COUNT 2.85 x10^6/uL (3.50-5.40); RED CELL DISTRIBUTION WIDTH 19.9 % (11.5-14.5); WHITE BLOOD COUNT 9.8 x10^3/uL (4.0-11.0)
[2020-03-14] MEDS ORDERED: MORPHINE SULFATE 4 MG/ML DISP.SYRIN. IV ONE (15:30)
[2020-03-14 15:41] LABS: CALCIUM 8.3 mg/dL (8.5-10.1); CREATININE 1.2 mg/dL (0.6-1.0); GFR 48.6; POTASSIUM 3.7 mmol/L (3.5-5.1)
[2020-03-14] MEDS ORDERED: ONDANSETRON PF 4 MG/2 ML VIAL. IVP PRN (16:00)
[2020-03-14 17:56] VITALS: BP 99/66
[2020-03-14] MEDS ORDERED: PIP/TAZO PER PHARMACY MC PRN (18:45)
[2020-03-14] MEDS ORDERED: HYDR5TAB11 PO (18:59)
[2020-03-14] MEDS ORDERED: PHEN-444 PO (18:59)
--- NOTE | 2020-03-14 19:00 | NUR ---
Admission: Pt arrived to room 123 on previous shift. Pt here for BLE cellulitis with multiple open wounds. Failed outpatient treatment. Wounds photographed by previous shift and placed in chart. Wound care consulted, pt reports she saw [facility] wound care on an outpatient basis earlier this week. Pt with extensive PMH and home med list, reconciled by Dr. Simon. Pt c/o significant pain to BLE, rates 9:10. PRN morphine 2mg IVP ordered. Discussed POC and oriented pt to unit and routines, V/U. Call light in reach. Belongings checked and logged, left in room with pt.
[2020-03-14] MEDS ORDERED: FLUTICASONE 50MCG/NASAL SPRAY 16GM BOTTLE. NS PRN (19:45)
[2020-03-14 19:56] VITALS: BP 112/70
[2020-03-14] MEDS: VANCOMYCIN PER PHARMACY MC PRN (20:10)
--- NOTE | 2020-03-14 20:10 | NUR ---
Pharmacy Vancomycin Dosing Note S:Consulted to monitor and dose vancomycin started . O:ROSANGELA FLORENCE is a 44 year old F with Cellulitis, . Height: 5 feet, 0 inches Weight: 95.4 kg [place] Body Weight: 45.50 Adjusted Body Weight: 65.30 Dosing Weight: Actual Other Antibiotics: ZOSYN 4.5GRAM Q8HRS LABS: Last BUN: 9 Last Creatinine: 1.2 Creatinine Clearance: Last WBC: 9.8 Last Procalcitonin: Tmax (past 24 hours): Microbiology: I/O: Drug Levels: Last level: on at Last dose given 03/14/20 at 1500 Vancomycin Dosing: Loading Dose: 2000 mg x1 Dosing Weight: Actual Target Trough: 10-20 A: Based on: P: 1. Begin Vancomycin 1500 mg IV q12h 2. Follow up Trough level on 03/16/20 at 0230 3. Pharmacy will continue to monitor, follow and adjust therapy as needed. ROSEANNA NASH RP, 03/14/202009
[2020-03-14] MEDS: MORPHINE SULFATE 2 MG/ML DISP.SYRIN. IV PRN (20:59)
[2020-03-14] MEDS: HYDROCORTISONE 10 MG TABLET PO SCH (21:00)
[2020-03-14] MEDS: PIPERACILLIN/TAZOBACTAM 4.5 GM in IV NORMAL SALINE 50ML 50 ML IV SCH (21:02)
[2020-03-14] MEDS: DULoxetine HCL 60 MG CAPSULE.DR PO SCH (21:02)
[2020-03-14] MEDS: MAGNESIUM OXIDE 400 MG TABLET PO SCH (21:03)
[2020-03-14] MEDS: MULTIVITAMIN with MINERAL TABLET. PO SCH (21:03)
[2020-03-14] MEDS: FLUDROCORTISONE 0.1 MG TABLET PO SCH (21:03)
[2020-03-14] MEDS: MELATONIN 3 MG TABLET PO SCH (21:03)
[2020-03-14] MEDS: BACLOFEN 20 MG TABLET PO SCH (21:04)
[2020-03-14] MEDS: GABAPENTIN 300 MG CAPSULE. PO SCH (21:04)
[2020-03-14] MEDS: ASCORBIC ACID 500 MG TABLET PO SCH (21:04)
[2020-03-14] MEDS: TORSEMIDE 20 MG TABLET. PO SCH (21:04)
[2020-03-14] MEDS: TOPIRAMATE 25 MG TABLET. PO SCH (21:04)
[2020-03-14] MEDS: MIRTAZAPINE 30 MG TABLET PO SCH (21:04)
[2020-03-14] MEDS: ALPRAZolam 0.25 MG TABLET PO SCH (21:04)
[2020-03-14] MEDS: PANTOPRAZOLE 40 MG TABLET. PO SCH (21:05)
[2020-03-14] MEDS: POTASSIUM CHLORIDE 20 MEQ TABLET.ER. PO SCH (21:05)
[2020-03-14] MEDS: ASPIRIN 325 MG TABLET PO SCH (21:05)
[2020-03-14] MEDS: traZODone 100 MG TABLET. PO SCH (21:05)
[2020-03-14 22:40] VITALS: BP 100/62
[2020-03-15] MEDS: VANCOMYCIN 1.5 GM in IV NORMAL SALINE 500ML 500 ML IV SCH ×2 (03:30→15:27)
[2020-03-15] MEDS: oxyCODONE IR 5 MG TABLET PO PRN ×3 (03:35→21:05)
[2020-03-15] MEDS: ACETAMINOPHEN 500 MG TABLET PO PRN (05:38)
[2020-03-15] MEDS: PIPERACILLIN/TAZOBACTAM 4.5 GM in IV NORMAL SALINE 50ML 50 ML IV SCH ×3 (05:39→22:00)
[2020-03-15 05:45] VITALS: BP 88/55
[2020-03-15 06:58] LABS: HEMATOCRIT 27.7 % (36.0-47.0); HEMOGLOBIN 8.4 g/dL (12.0-15.5); RED BLOOD COUNT 2.67 x10^6/uL (3.50-5.40); RED CELL DISTRIBUTION WIDTH 19.7 % (11.5-14.5); WHITE BLOOD COUNT 6.6 x10^3/uL (4.0-11.0)
[2020-03-15 07:20] LABS: ALBUMIN 2.2 g/dL (3.4-5.0); ALBUMIN/GLOBULIN RATIO 0.7 (1.0-1.7); CALCIUM 7.8 mg/dL (8.5-10.1); MAGNESIUM 2.4 mg/dL (1.8-2.4); TOTAL BILIRUBIN 0.2 mg/dL (0.2-1.0); TOTAL PROTEIN 5.2 g/dL (6.4-8.2)
[2020-03-15] MEDS: ALPRAZolam 0.25 MG TABLET PO SCH ×2 (08:25→21:04)
[2020-03-15] MEDS: PANTOPRAZOLE 40 MG TABLET. PO SCH ×2 (08:25→21:05)
[2020-03-15] MEDS: GABAPENTIN 300 MG CAPSULE. PO SCH ×3 (08:25→21:04)
[2020-03-15] MEDS: BACLOFEN 20 MG TABLET PO SCH ×3 (08:25→21:04)
[2020-03-15] MEDS: DULoxetine HCL 60 MG CAPSULE.DR PO SCH ×2 (08:25→21:05)
[2020-03-15] MEDS: ASCORBIC ACID 500 MG TABLET PO SCH ×3 (08:25→21:05)
[2020-03-15] MEDS: ASPIRIN 325 MG TABLET PO SCH ×2 (08:25→21:06)
[2020-03-15] MEDS: MAGNESIUM OXIDE 400 MG TABLET PO SCH ×2 (08:25→21:06)
[2020-03-15] MEDS: MULTIVITAMIN with MINERAL TABLET. PO SCH ×2 (08:25→21:04)
[2020-03-15] MEDS: HYDROCORTISONE 10 MG TABLET PO SCH ×2 (08:26→21:00)
[2020-03-15] MEDS: FLUDROCORTISONE 0.1 MG TABLET PO SCH ×2 (08:27→21:04)
[2020-03-15] MEDS: TOPIRAMATE 25 MG TABLET. PO SCH ×2 (08:30→21:05)
[2020-03-15] MEDS: TORSEMIDE 20 MG TABLET. PO SCH ×3 (08:30→21:05)
[2020-03-15] MEDS: SPIRONOLACTONE 25 MG TABLET PO SCH ×2 (08:31→14:30)
[2020-03-15] MEDS: POTASSIUM CHLORIDE 20 MEQ TABLET.ER. PO SCH ×3 (08:33→21:06)
[2020-03-15] MEDS ORDERED: FLU VACC QS 2020-21(6MOS+)/PF 0.5 ML SYRINGE. VAX IM ONE (10:00)
[2020-03-15 11:00] VITALS: BP 90/49
[2020-03-15 15:00] VITALS: BP 107/58
--- NOTE | 2020-03-15 15:14 | HP ---
ADMIT DATE: 03/14/2020 HISTORY OF PRESENT ILLNESS: The patient is a 44-year-old female patient who came to the Emergency Room complaining of worsening wounds and surrounding cellulitis that has failed treatment with oral antibiotic. She noted that her left pugh wound started the laceration 3 weeks ago that was repaired and she stated that she just had sutures removed approximately 4 days ago. She has been on multiple antibiotics for chronic festering wound. She stated that her chronic wounds in the past are slow to heal. She states they required hospitalization for antibiotic in the past. She notes after developing the left anterior pugh wound that she developed wound on her right foot and ankle as well as her left elbow. They are painful to touch. Her legs are warm, red and she noticed some purulent drainage. She does have a history of MRSA. Denied any history of IV drug use and she thinks that her delayed wound healing is due to nutritional deficiencies, given that she has had a gastrectomy secondary to gastroparesis. She is known to have allergy to SULFA DRUGS. She was extensively investigated. She was found to have multiple wounds in her legs and also bilateral lower extremity cellulitis and was started on IV vancomycin as well as piperacillin and tazobactam as the pharmacy recommendation adjustment. The patient continued to complain of pain despite starting her on morphine; however, the patient is extremely lethargic and sleepy and I recommended that the nursing staff should not give her any pain medication while she is very lethargic or sleepy. 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 She has gastroparesis for which she underwent gastrectomy, bronchial asthma, chronic obstructive pulmonary disease, has had mild stroke with left side weakness, hypertension, history of methicillin-resistant Staphylococcus aureus infection, lumbar spinal stenosis, she has also had a history of C. diff colitis, pulmonary embolism, hemorrhoids, hiatal hernia, body image disorder, kidney stones, footdrop, anxiety, depression and tobacco use. She also has history of acute on chronic diastolic congestive heart failure, history of acute kidney injury due to cardiorenal syndrome. PAST SURGICAL HISTORY: Significant for tonsillectomy, adenoidectomy, cholecystectomy, gastrectomy, multiple abdominal surgeries, history of PEG tube placement, ventral hernia repair, cyst excision, hysterectomy and most recently right rotator cuff repair. ALLERGIES: She is allergic to SULFA DRUGS, CITRIC ACID and SHELLFISH. FAMILY HISTORY: She has 2 brothers, both older and alive, her older brother has diabetes and hypertension. Her younger brother has hypertension. His diabetes was ameliorated after he underwent bypass surgery. Her father is still alive at the age of 73. He is known to have myocardial infarction and underwent 5-vessel coronary artery bypass graft surgery. Her mother is still alive at the age of 72, has had myocardial infarction for which she underwent PCI and stent deployment. SOCIAL HISTORY: She is , has 1 son. She smokes half a pack a day. She does not drink alcohol or use recreational drugs. 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 MEDICATIONS: She is currently on following medications: She is on methenamine hippurate 1 gram twice a day, baclofen 20 mg 3 times a day, spironolactone 25 mg twice a day, aspirin 325 mg twice a day, oxycodone 10 mg every 8 hours, acetaminophen 1000 mg every 8 hours, gabapentin 300 mg 3 times a day, topiramate 50 mg twice a day, duloxetine 60 mg twice a day, mirtazapine 30 mg at bedtime, trazodone 100 mg at bedtime. She is on alprazolam 0.5 mg twice a day, potassium chloride 20 mEq 3 times a day, torsemide 20 mg 3 times a day, Flonase 1 spray to each nostril twice a day, magnesium oxide 400 mg twice a day, ondansetron ODT 4 mg every 4 hours as needed, omeprazole 20 mg at bedtime, Protonix 40 mg twice a day, fludrocortisone 200 mcg twice a day, hydrocortisone 20 mg twice a day, phenazopyridine 200 mg 4 times a day, ascorbic acid 1000 mg 3 times a day, multivitamin 1 tablet once a day, melatonin 20 mg at bedtime. PHYSICAL EXAMINATION: GENERAL: On arrival to the Emergency Room, she was somewhat pale, but not jaundiced or cyanosed or thyromegaly. No jugular venous distention. Mild bilateral lower limb edema. VITAL SIGNS: Her heart rate was 105, blood pressure was 120/60, temperature was 97.4, respiratory rate 30 and oxygen saturation was 94% on room air. HEAD, EYES, EARS, NOSE AND THROAT: Showed normocephalic, atraumatic. NECK: Supple. HEART: Showed normal first and second heart sounds with no gallop, rub or murmur. CHEST: Showed central trachea, equal bilateral chest expansion, air entry, vesicular breath sounds. No crepitation or rhonchi. ABDOMEN: Distended, soft, nontender. She has a suprapubic catheter in place. There is no guarding or rigidity. No organomegaly. All hernial orifice intact. Bowel sounds normal. NEUROLOGIC: She is awake, alert, responding appropriately. All cranial nerves intact. EXTREMITIES: She moves extremities without difficulty. She has multiple wounds on her heel of the right foot and the outer aspect of left leg. She has also what looks like pressure wound on the left elbow. LABORATORY DATA: Her lab work on arrival showed a white cell count of 9800, hemoglobin 9, hematocrit 29.5, MCV 104 and platelet count of 183,000 with normal manual differential. Her chemistry on arrival showed a serum sodium 141, potassium 3.7, chloride 109, bicarbonate 25, anion gap of 7, BUN 9, creatinine 1.2, estimated GFR was 48 mL per minute. Her glucose 120, calcium was 8.3. ASSESSMENT AND PLAN: 1. The patient was admitted with multiple wounds of both lower extremities and left elbow. 2. Bilateral lower extremity cellulitis. The patient was started on IV vancomycin as well as Zosyn with dose adjustment done by the pharmacist. Meanwhile, we continued on all her medication except for omeprazole as she is already on Protonix 40 mg twice a day. We will follow her on a daily basis and we will consult the wound care team. UMESH HOLCOMB MD DR: RONALD/shayna JOB#: [id number] / [id number]
--- NOTE | 2020-03-15 17:00 | NUR ---
Wound/Ostomy Care Wound Type/Assessment: Pt is currently a patient with WCC. Pt has multiple open blisters of unknown origin, all are pale pink with slough. Pt also has laceration to LLE that was sutured in ER 2 weeks ago, that is now slough and eschar covered. Treatment Recommendations/Plan: Applied hydrofera blue transfer, xeroform and foam dressings with instructions to leave in place until Wednesday. Education provided: PU prevention, WC POC Offloading surface/device: none Recommended Referrals/Tests: none Discharge Recommendations for dressings: HFB, xeroform and foam every 3-4 days.
--- NOTE | 2020-03-15 19:30 | PN ---
DATE: 03/15/2020 SUBJECTIVE: The patient is resting, slightly propped up in bed, somewhat lethargic, but arousable. On questioning her, she continued to complain of pain. She obviously continued to have wounds on both legs and also cellulitis, although the erythema is slightly better. PHYSICAL EXAMINATION: GENERAL: When I examined her, she was pale, but no jaundice, cyanosis or thyromegaly. No jugular venous distention. No limb edema. VITAL SIGNS: Her heart rate was 72, blood pressure was 90/49, temperature was 98, respiratory rate 20, and oxygen saturation was 97% on room air. HEAD, EYES, EARS, NOSE AND THROAT: Normocephalic, atraumatic. NECK: Supple. HEART: Showed normal first and second heart sounds. No gallop or murmur. CHEST: Clear to auscultation. No crepitation or rhonchi. ABDOMEN: Distended, soft with suprapubic catheter in place. NEUROLOGIC: She is lethargic, but arousable. All cranial nerves intact. She moves extremities without difficulty, though she is mostly bedbound. Her intake and output are incompletely recorded. LABORATORY DATA: Her lab work this morning showed a white cell count of 6600, hemoglobin 8.4, hematocrit 28, MCV 104 and a platelet count of 179,000. Her chemistry showed a serum sodium 142, potassium 4, chloride 112, bicarbonate 23, anion gap of 7, BUN 6, creatinine 1, estimated GFR was 60 mL per minute. Her glucose 105, calcium was 7.8, magnesium was 2.4. Total bilirubin, AST, ALT, alkaline phosphatase were normal. Total protein 5.2 and albumin was 2.2. ASSESSMENT: 1. In summary, this is a 44-year-old female patient who was admitted with multiple wounds involving left leg, right heel and left elbow. 2. Bilateral lower extremity cellulitis. 3. 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 She has gastroparesis, status post gastrectomy, chronic obstructive pulmonary disease, chronic diastolic congestive heart failure, history of methicillin-resistant Staphylococcus aureus and neurogenic bladder requiring suprapubic catheter. PLAN: To obviously continue with IV vancomycin and Zosyn. Continue with all other medication. I will continue to monitor her lab work. UMESH HOLCOMB MD DR: Abebe JOB#: [id number] / [id number]
[2020-03-15 20:27] VITALS: BP 100/54
[2020-03-15] MEDS: MELATONIN 3 MG TABLET PO SCH (21:04)
[2020-03-15] MEDS: MIRTAZAPINE 30 MG TABLET PO SCH (21:04)
[2020-03-15] MEDS: LACTOBACILLUS RHAMNOSUS GG 1 CAPSULE. PO SCH (21:05)
[2020-03-15] MEDS: traZODone 100 MG TABLET. PO SCH (21:06)
[2020-03-15 22:44] VITALS: BP 93/60
[2020-03-16 02:42] LABS: VANC TR 22.6 mcg/mL (10.0-20.0)
[2020-03-16] MEDS: VANCOMYCIN 1 GM in IV NORMAL SALINE 250ML 250 ML IV SCH ×2 (04:27→16:00)
[2020-03-16] MEDS: oxyCODONE IR 5 MG TABLET PO PRN (04:33)
[2020-03-16] MEDS: PIPERACILLIN/TAZOBACTAM 4.5 GM in IV NORMAL SALINE 50ML 50 ML IV SCH ×3 (05:43→22:11)
[2020-03-16 06:11] VITALS: BP 85/43
[2020-03-16 06:18] LABS: C REACTIVE PROTEIN 4.3 mg/L (0-3.3); CREATININE 1.2 mg/dL (0.6-1.0); GFR 48.6; POTASSIUM 3.5 mmol/L (3.5-5.1)
[2020-03-16] MEDS: VANCOMYCIN PER PHARMACY MC PRN (08:50)
[2020-03-16] MEDS: HYDROCORTISONE 10 MG TABLET PO SCH ×2 (09:00→20:16)
--- NOTE | 2020-03-16 09:07 | NUR ---
Pharmacy Vancomycin Dosing Note S:Consulted to monitor and dose vancomycin started 03/14/20. O:ROSANGELA FLORENCE is a 44 year old F with Cellulitis, . Height: 5 feet, 0 inches Weight: 98.5 kg [place] Body Weight: 45.50 Adjusted Body Weight: 66.70 Dosing Weight: Actual Other Antibiotics: ZOSYN 4.5GRAM Q8HRS LABS: Last BUN: 13 Last Creatinine: 1.2 Creatinine Clearance: 62.34 Last WBC: 6.6 Drug Levels: Last Trough level: 22.6 on 03/16/20 at 0230 Last dose given 03/14/20 at 1500 Vancomycin Dosing: Loading Dose: 2000 mg x1 Dosing Weight: Actual Target Trough: 10-20 A: Based on: Trough and renal function P: 1. Begin Vancomycin 1000 mg IV q12h 2. Follow up Trough level on 03/17/20 at 1530 3. Pharmacy will continue to monitor, follow and adjust therapy as needed. SHAHNAZ MACHADO, 03/16/20 0907
[2020-03-16] MEDS: POTASSIUM CHLORIDE 20 MEQ TABLET.ER. PO SCH ×3 (09:10→20:10)
[2020-03-16] MEDS: MAGNESIUM OXIDE 400 MG TABLET PO SCH ×2 (09:10→20:10)
[2020-03-16] MEDS: GABAPENTIN 300 MG CAPSULE. PO SCH ×3 (09:10→20:11)
[2020-03-16] MEDS: BACLOFEN 20 MG TABLET PO SCH ×3 (09:10→20:11)
[2020-03-16] MEDS: ALPRAZolam 0.25 MG TABLET PO SCH ×2 (09:10→20:10)
[2020-03-16] MEDS: FLUDROCORTISONE 0.1 MG TABLET PO SCH ×2 (09:10→20:12)
[2020-03-16] MEDS: DULoxetine HCL 60 MG CAPSULE.DR PO SCH ×2 (09:10→20:08)
[2020-03-16] MEDS: MULTIVITAMIN with MINERAL TABLET. PO SCH ×2 (09:10→20:09)
[2020-03-16] MEDS: LACTOBACILLUS RHAMNOSUS GG 1 CAPSULE. PO SCH ×2 (09:10→20:11)
[2020-03-16] MEDS: ASPIRIN 325 MG TABLET PO SCH ×2 (09:10→20:11)
[2020-03-16] MEDS: TORSEMIDE 20 MG TABLET. PO SCH ×3 (09:10→20:11)
[2020-03-16] MEDS: SPIRONOLACTONE 25 MG TABLET PO SCH ×2 (09:10→14:34)
[2020-03-16] MEDS: PANTOPRAZOLE 40 MG TABLET. PO SCH ×2 (09:10→20:10)
[2020-03-16] MEDS: ASCORBIC ACID 500 MG TABLET PO SCH ×3 (09:10→20:11)
[2020-03-16] MEDS: TOPIRAMATE 25 MG TABLET. PO SCH ×3 (09:11→20:09)
[2020-03-16 11:00] VITALS: BP 94/66
[2020-03-16] MEDS: ONDANSETRON ODT 4 MG TAB.RAPDIS PO PRN ×2 (12:37→17:18)
[2020-03-16 15:00] VITALS: BP 124/73
[2020-03-16 19:36] VITALS: BP 98/49
[2020-03-16] MEDS: MELATONIN 3 MG TABLET PO SCH (20:09)
[2020-03-16] MEDS: traZODone 100 MG TABLET. PO SCH (20:09)
[2020-03-16] MEDS: MIRTAZAPINE 30 MG TABLET PO SCH (20:10)
--- NOTE | 2020-03-16 20:35 | PN ---
DATE: 03/16/2020 SUBJECTIVE: The patient is resting, slightly propped up in bed, in no apparent distress. She continued to complain of some pain in her legs, but all the erythema has almost completely subsided as well as the swelling. Her wounds are covered with dressing. Did have some nausea today, but remained otherwise stable and afebrile. PHYSICAL EXAMINATION: GENERAL: When I examined her, she was pale, no jaundice, cyanosis or thyromegaly. No jugular venous distention. Mild bilateral lower limb edema that is resolving. VITAL SIGNS: Her heart rate was 81, blood pressure was 94/66, temperature 98.4, respiratory rate 20, and oxygen saturation was 98%. HEAD, EYES, EARS, NOSE, AND THROAT: Normocephalic, atraumatic. NECK: Supple. HEART: Showed normal first and second heart sounds. No gallop, rub, or murmur. CHEST: Clear to auscultation. No crepitation or rhonchi. ABDOMEN: Distended, soft with suprapubic catheter in place. NEUROLOGIC: She is awake, alert, responding appropriately. All cranial nerves are intact. She moves extremities without difficulty. Her intake was 4150, output was 800. LABORATORY DATA: Her lab work as of this morning showed a white cell count of 6600, hemoglobin 8.4, hematocrit 27.7, MCV 104, and a platelet count of 179,000. Her serum sodium 142, potassium 3.5, chloride 109, bicarbonate 25, anion gap of 8, BUN 13, creatinine 1.2, estimated GFR was 48 mL per minute. Her glucose 191, calcium was 8, and C-reactive protein was 4.3. ASSESSMENT: 1. A 44-year-old female patient who was admitted with multiple wounds involving left leg, right heel, and left elbow. 2. Bilateral lower extremity cellulitis. 3. 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 B. Gastroparesis status post gastrectomy. C. Chronic obstructive pulmonary disease. D. Chronic diastolic congestive heart failure seems to be well compensated. E. History of methicillin-resistant Staphylococcus aureus. F. Neurogenic bladder requiring suprapubic catheter. PLAN: Plan is to continue with IV vancomycin and Zosyn. Continue with all other medication. Continue to monitor lab work. The erythema has almost completely subsided. Her wounds are covered with dressing. UMESH HOLCOMB MD DR: RONALD/shayna JOB#: [id number] / [id number]
[2020-03-16 23:20] VITALS: BP 103/68
--- NOTE | 2020-03-17 01:14 | NUR ---
Pt has been pleasant and cooperative tonight. She spent the evening watching TV, talking on her phone or playing a game. She reported pain of back and L leg at HS med pass which included some meds which can reduce pain. She soon went to sleep and has not reported pain since.
--- NOTE | 2020-03-17 03:35 | NUR ---
Pt awoke around 0300 co pain of left leg and back. She was repositioned and PRN oxycodone given. Spoke with Dr Simon and order for ok to draw blood from portacath received.
[2020-03-17] MEDS: VANCOMYCIN 1 GM in IV NORMAL SALINE 250ML 250 ML IV SCH ×2 (04:00→16:27)
[2020-03-17] MEDS: oxyCODONE IR 5 MG TABLET PO PRN ×3 (05:08→23:15)
[2020-03-17] MEDS: PIPERACILLIN/TAZOBACTAM 4.5 GM in IV NORMAL SALINE 50ML 50 ML IV SCH ×3 (05:41→19:59)
[2020-03-17] MEDS: MORPHINE SULFATE 2 MG/ML DISP.SYRIN. IV PRN (05:55)
[2020-03-17 06:10] VITALS: BP 90/53
[2020-03-17] MEDS: HYDROCORTISONE 10 MG TABLET PO SCH ×2 (09:00→20:02)
[2020-03-17] MEDS: DULoxetine HCL 60 MG CAPSULE.DR PO SCH ×2 (09:08→19:58)
[2020-03-17] MEDS: POTASSIUM CHLORIDE 20 MEQ TABLET.ER. PO SCH ×3 (09:08→19:59)
[2020-03-17] MEDS: BACLOFEN 20 MG TABLET PO SCH ×3 (09:08→19:57)
[2020-03-17] MEDS: PANTOPRAZOLE 40 MG TABLET. PO SCH ×2 (09:08→19:58)
[2020-03-17] MEDS: ALPRAZolam 0.25 MG TABLET PO SCH ×2 (09:08→19:58)
[2020-03-17] MEDS: MULTIVITAMIN with MINERAL TABLET. PO SCH ×2 (09:08→19:58)
[2020-03-17] MEDS: LACTOBACILLUS RHAMNOSUS GG 1 CAPSULE. PO SCH ×2 (09:08→19:58)
[2020-03-17] MEDS: TORSEMIDE 20 MG TABLET. PO SCH ×3 (09:08→19:57)
[2020-03-17] MEDS: ASPIRIN 325 MG TABLET PO SCH ×2 (09:08→19:57)
[2020-03-17] MEDS: MAGNESIUM OXIDE 400 MG TABLET PO SCH ×2 (09:08→19:58)
[2020-03-17] MEDS: TOPIRAMATE 25 MG TABLET. PO SCH (09:08)
[2020-03-17] MEDS: ASCORBIC ACID 500 MG TABLET PO SCH ×3 (09:08→19:57)
[2020-03-17] MEDS: GABAPENTIN 300 MG CAPSULE. PO SCH ×3 (09:08→19:58)
[2020-03-17] MEDS: SPIRONOLACTONE 25 MG TABLET PO SCH ×2 (09:09→13:36)
[2020-03-17] MEDS: FLUDROCORTISONE 0.1 MG TABLET PO SCH ×2 (09:09→20:03)
[2020-03-17 11:00] VITALS: BP 91/63
[2020-03-17] MEDS: ONDANSETRON ODT 4 MG TAB.RAPDIS PO PRN ×2 (12:44→15:49)
[2020-03-17 15:00] VITALS: BP 103/54
[2020-03-17 16:05] LABS: VANC TR 18.5 mcg/mL (10.0-20.0)
--- NOTE | 2020-03-17 17:09 | PN ---
DATE: 03/17/2020 SUBJECTIVE: The patient is resting, slightly propped up in bed, in no apparent respiratory distress. On questioning her, she complained that she is nauseous. Denied any vomiting, denied any diarrhea. Nursing staff stated that generally she has uneventful night. Her erythema on the right leg has completely subsided. Has mild redness around her wound in the left side. PHYSICAL EXAMINATION: GENERAL: When I examined her, she was pale, no jaundice, cyanosis or thyromegaly. No jugular venous distention. No limb edema. VITAL SIGNS: Her heart rate was 78, blood pressure was 103/54, temperature 98.3, respiratory rate was 18 and oxygen saturation was 96%. HEAD, EYES, EARS, NOSE, AND THROAT: Showed normocephalic, atraumatic. NECK: Supple. HEART: Showed normal first and second heart sounds. No gallop, rub or murmur. CHEST: Clear to auscultation. No crepitation or rhonchi. ABDOMEN: Distended, soft with suprapubic catheter in place, no tenderness. No guarding or rigidity. No organomegaly. All hernial orifice intact. Bowel sounds normal. NEUROLOGIC: She was awake, alert, responding appropriately. All cranial nerves intact. She moves extremities without difficulty. She has multiple wounds in her right and left leg and left elbow. Her intake over the last 24 hours was 2500, output was 3350. LABORATORY DATA: As of yesterday showed a white cell count of 6600, hemoglobin 8.4, hematocrit 27.7, MCV 104 and platelet count of 179,000. Her chemistry showed a serum sodium of , potassium 3.5, chloride 109, bicarbonate 25, anion gap of 8, BUN 13, creatinine 1.2, estimated GFR was 48 mL per minute. Her glucose 191, calcium was 8. C-reactive protein was 4.3. ASSESSMENT: 1. This is a 44-year-old female patient who was admitted with multiple wounds involving left leg, right heel and left elbow. 2. Bilateral lower extremity cellulitis. 3. Multiple other medical problems including: A. 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 B. Gastroparesis, status post gastrectomy. C. Chronic obstructive pulmonary disease. D. Chronic diastolic congestive heart failure, seems to be well compensated. E. History of methicillin-resistant Staphylococcus aureus. F. Neurogenic bladder requiring suprapubic catheter. PLAN: To continue with vancomycin and Zosyn. Continue with all her other medications. Her erythema has almost completely resolved. Her wounds are covered with dressing. We will repeat her lab work. I did order PT, OT and hopefully she can be discharged home tomorrow with home health on IV dabtomycin. UMESH HOLCOMB MD DR: RONALD/shayna JOB#: [id number] / [id number]
[2020-03-17 19:55] VITALS: BP 105/53
[2020-03-17] MEDS: MIRTAZAPINE 30 MG TABLET PO SCH (19:58)
[2020-03-17] MEDS: MELATONIN 3 MG TABLET PO SCH (19:58)
[2020-03-17] MEDS: traZODone 100 MG TABLET. PO SCH (19:58)
[2020-03-17 23:48] VITALS: BP 101/62
[2020-03-18] MEDS: VANCOMYCIN 1 GM in IV NORMAL SALINE 250ML 250 ML IV SCH ×2 (03:42→16:09)
[2020-03-18] MEDS: MORPHINE SULFATE 2 MG/ML DISP.SYRIN. IV PRN (04:48)
[2020-03-18] MEDS: PIPERACILLIN/TAZOBACTAM 4.5 GM in IV NORMAL SALINE 50ML 50 ML IV SCH ×2 (04:49→14:00)
[2020-03-18 06:19] VITALS: BP 101/66
[2020-03-18 06:31] LABS: HEMOGLOBIN 9.2 g/dL (12.0-15.5); RED BLOOD COUNT 2.96 x10^6/uL (3.50-5.40); RED CELL DISTRIBUTION WIDTH 18.4 % (11.5-14.5); WHITE BLOOD COUNT 8.2 x10^3/uL (4.0-11.0)
[2020-03-18 06:53] LABS: ALBUMIN 2.4 g/dL (3.4-5.0); ALBUMIN/GLOBULIN RATIO 0.7 (1.0-1.7); CALCIUM 8.2 mg/dL (8.5-10.1); CREATININE 1.2 mg/dL (0.6-1.0); GFR 48.6; POTASSIUM 3.6 mmol/L (3.5-5.1); TOTAL BILIRUBIN 0.2 mg/dL (0.2-1.0); TOTAL PROTEIN 5.9 g/dL (6.4-8.2)
[2020-03-18] MEDS: PANTOPRAZOLE 40 MG TABLET. PO SCH (07:59)
[2020-03-18] MEDS: MULTIVITAMIN with MINERAL TABLET. PO SCH (07:59)
[2020-03-18] MEDS: TORSEMIDE 20 MG TABLET. PO SCH ×2 (07:59→14:00)
[2020-03-18] MEDS: ASCORBIC ACID 500 MG TABLET PO SCH ×2 (07:59→14:00)
[2020-03-18] MEDS: TOPIRAMATE 25 MG TABLET. PO SCH (07:59)
[2020-03-18] MEDS: DULoxetine HCL 60 MG CAPSULE.DR PO SCH (07:59)
[2020-03-18] MEDS: GABAPENTIN 300 MG CAPSULE. PO SCH ×2 (07:59→13:59)
[2020-03-18] MEDS: SPIRONOLACTONE 25 MG TABLET PO SCH ×2 (07:59→14:00)
[2020-03-18] MEDS: MAGNESIUM OXIDE 400 MG TABLET PO SCH (07:59)
[2020-03-18] MEDS: BACLOFEN 20 MG TABLET PO SCH ×2 (07:59→14:01)
[2020-03-18] MEDS: LACTOBACILLUS RHAMNOSUS GG 1 CAPSULE. PO SCH (07:59)
[2020-03-18] MEDS: ASPIRIN 325 MG TABLET PO SCH (08:00)
[2020-03-18] MEDS: POTASSIUM CHLORIDE 20 MEQ TABLET.ER. PO SCH ×2 (08:00→14:00)
[2020-03-18] MEDS: FLUDROCORTISONE 0.1 MG TABLET PO SCH (08:00)
[2020-03-18] MEDS: ALPRAZolam 0.25 MG TABLET PO SCH (08:00)
[2020-03-18] MEDS: HYDROCORTISONE 10 MG TABLET PO SCH (08:01)
[2020-03-18] MEDS: oxyCODONE IR 5 MG TABLET PO PRN ×2 (08:06→16:08)
[2020-03-18 10:44] VITALS: BP 108/69
[2020-03-18] MEDS: ACETAMINOPHEN 500 MG TABLET PO PRN (12:49)
[2020-03-18] MEDS: ONDANSETRON ODT 4 MG TAB.RAPDIS PO PRN (12:49)
[2020-03-18 14:34] VITALS: BP 102/57
[2020-03-18] MEDS ORDERED: DAPT500V7 IV (18:03)
--- NOTE | 2020-03-18 18:30 | NUR ---
Wound/Ostomy Care Wound Type/Assessment: Pt is currently a patient with [facility]. Pt has multiple open blisters of unknown origin, all are pale pink with slough. Pt also has laceration to LLE that was sutured in ER 2 weeks ago, that is now slough covered. Treatment Recommendations/Plan: Applied hydrofera blue transfer and foam dressings with instructions to leave in place until Wednesday. Education provided: PU prevention, WC POC Offloading surface/device: none Recommended Referrals/Tests: none Discharge Recommendations for dressings: HFB, xeroform and foam every 3-4 days. Pt is to call [facility] after DC to make Appt on Wednesday
--- NOTE | 2020-03-18 18:34 | NUR ---
NSG NOTE; DISCHARGE VERBAL AND WRITTEN DISCHARGE INSTRUCTIONS GIVEN TO PT WITH VERBAL UNDERSTANDING PORTACATH FLUSHED WITH NS 10 ML AND CAPPED. LEFT IN PLACE PT IS TO START IV ABX THERAPY AT HOME STARTING TOMORROW 03/19/20 DISCHARGED TO HOME AT 1830 VIA W/[facility] BY WHO PICKED HER UP
--- NOTE | 2020-03-18 18:55 | DS ---
DATE OF DISCHARGE: 03/18/2020 HOSPITAL COURSE: The patient is a 44-year-old female patient who was admitted with multiple wounds in her left leg, right heel, and left elbow together with bilateral lower extremity cellulitis. She was treated with IV vancomycin and Zosyn and she did very well. Her erythema has largely subsided. Her wounds were followed by the wound care team and they are improving, although they have not healed completely, and as she remained afebrile, hemodynamically stable, all the erythema and swelling has largely subsided, a decision was made to discharge her home with home health to continue treatment with IV daptomycin at 4 mg/kg which was 400 mg IV daily for next 7 days. PHYSICAL EXAMINATION: GENERAL: When I saw her this afternoon, she looked well and was clearly in no apparent respiratory distress. Pale, but no jaundice, cyanosis, or thyromegaly. No jugular venous distention. No limb edema. VITAL SIGNS: Her heart rate was 69, blood pressure was 102/57, temperature was 98.3, respiratory rate 20, and oxygen saturation was 98% on 4 liters of oxygen. The rest of clinical exam is stable. MUSCULOSKELETAL: She has a Port-A-Cath in the right infraclavicular area. The erythema of both lower extremities has largely subsided. Her wounds are covered with dressing. LABORATORY DATA: Her lab work this morning showed a white cell count of 8200, hemoglobin was 9.2, hematocrit 30, MCV 101, and platelet count of 171,000. Her chemistry showed a serum sodium 142, potassium 3.6, chloride 108, bicarbonate 27, anion gap of 7, BUN 18, creatinine 1.2, estimated GFR was 48 mL per minute. Her glucose was 97, calcium was 8.2. Total bilirubin, AST, ALT, alkaline phosphatase were normal. Total protein was 5.9, albumin was 2.4. FINAL DISCHARGE DIAGNOSES: 1. Bilateral multiple wounds in both legs, right heel and left elbow. 2. Bilateral lower extremity cellulitis, resolved. 3. The patient has multiple other medical problems including: A. 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 B. Gastroparesis status post gastrectomy. C. Chronic obstructive pulmonary disease. D. Chronic diastolic congestive heart failure, seems to be well compensated. E. History of methicillin-resistant Staphylococcus aureus. F. Neurogenic bladder requiring suprapubic catheter. DISCHARGE PLAN: The patient will be discharged home with home health to continue IV antibiotic in the form of daptomycin 400 mg IV daily for the next 7 days. Her wound care will be taken care of by the home health agency. UMESH HOLCOMB MD DR: RONALD/shayna JOB#: [id number] / [id number]
== END 2020-03-18 18:30 | disposition home health service (06) | DRG 871 ==
LOC: ER 13:26 → 1 SOUTH 15:40 → ER 17:30 → 1 SOUTH 17:43
PROVIDERS: ADMIT Internal Medicine; ATTEND Internal Medicine
DX: A41.9 Sepsis, unspecified organism (principal); E43 Unspecified severe protein-calorie malnutrition; L03.116 Cellulitis of left lower limb; I50.32 Chronic diastolic (congestive) heart failure; E27.1 Primary adrenocortical insufficiency; I13.0 Hypertensive heart and chronic kidney disease with heart failure and stage 1 through stage 4 chronic kidney disease, or unspecified chronic kidney disease; L03.115 Cellulitis of right lower limb; Z68.41 Body mass index [BMI] 40.0-44.9, adult; F17.210 Nicotine dependence, cigarettes, uncomplicated; J44.9 Chronic obstructive pulmonary disease, unspecified; K31.84 Gastroparesis; N18.9 Chronic kidney disease, unspecified; N31.9 Neuromuscular dysfunction of bladder, unspecified; Z82.49 Family history of ischemic heart disease and other diseases of the circulatory system; Z83.3 Family history of diabetes mellitus; Z86.14 Personal history of Methicillin resistant Staphylococcus aureus infection; Z86.19 Personal history of other infectious and parasitic diseases; Z86.711 Personal history of pulmonary embolism; Z86.73 Personal history of transient ischemic attack (TIA), and cerebral infarction without residual deficits; Z88.2 Allergy status to sulfonamides; Z90.3 Acquired absence of stomach [part of]; Z90.710 Acquired absence of both cervix and uterus; Z93.1 Gastrostomy status; Z87.442 Personal history of urinary calculi; F32.9 Major depressive disorder, single episode, unspecified; F41.9 Anxiety disorder, unspecified; Z91.030 Bee allergy status; Z91.013 Allergy to seafood; Z90.49 Acquired absence of other specified parts of digestive tract; Z79.899 Other long term (current) drug therapy
CPT/HCPCS: 36415; 73630; 80048; 80053; 80202; 83605; 83735; 85025; 85027; 86140; 87040; 90471; 96365; 96366; 96376; J0878; J2270; J2405; J2543; J3370; J7040; J7050; Q0162; 90686; 97116; 97530; 99285-25; J7030

== ENCOUNTER 2020-04-02 12:11 | Emergency (ER) | payer OTHER, MEDICAID ==
[~2020-04-02] VITALS: Ht 152.4 cm; Wt 98.5 kg
[~2020-04-02 12:11] MED LIST changes: +DAPT500V7 IV; +PHEN-444 PO
[2020-04-02 12:23] VITALS: BP 104/70
--- NOTE | 2020-04-02 13:49 | RAD ---
Examination: CT HEAD AND MAXILLOFACIAL WO History: Reason: epistaxis, deformity to nose s/p blunt trauma, pain / Comparison/Correlation: 05/30/2019 CT head without contrast Findings: Axial images of the head and maxillofacial structures were obtained. Sagittal and coronal reformatted images of the maxillofacial structures were provided Axial images of the head and maxillofacial structures were provided. Sagittal and reformatted images were provided. No intracranial hemorrhage, midline shift, or mass effect. The globes and orbits are unremarkable. Small right maxillary sinus mucous retention cyst is present. Tongue piercing is present. Slightly displaced right nasal bone fracture is present. While it is new since 05/30/2019, there is no significant soft tissue swelling evident. Temporomandibular joints are unremarkable. The patient is edentulous. Impression: No intracranial hemorrhage. Right nasal bone fracture is new since the prior head CT exam but there is no soft tissue swelling swelling as would be expected in acute fracture. Correlate with symptoms and history of injury. PQRS Compliance Statement: One or more of the following individualized dose reduction techniques were utilized for this examination: 1. Automated exposure control 2. Adjustment of the mA and/or kV according to patient size 3. Use of iterative reconstruction technique Electronically signed by: Hoang Foster MD (04/02/2020 1:46 PM) [facility]
--- NOTE | 2020-04-02 14:42 | PHYS DOC ---
Past History Past Medical History: Asthma, CHF, COPD, Hypotension, MRSA, Stroke Additional Past Medical Histor: stroke, gastroparesis, spinal stenosis, anni disease, stroke (right side Past Surgical History: Cholecystectomy, Hysterectomy Additional Past Surgical Histo: suprapubic catheter Smoking: Cigarettes Alcohol Use: None Drug Use: None General Adult EDM: Chief Complaint: MECHANICAL FALL HPI: HPI: Patient is a [age] year old [sex] who presents with [] Review of Systems: Review of Systems: Constitutional: Denies fever or chills Eyes: Denies change in visual acuity HENT: Denies nasal congestion or sore throat Respiratory: Denies cough or shortness of breath Cardiovascular: Denies chest pain or edema GI: Denies abdominal pain, nausea, vomiting, bloody stools or diarrhea : Denies dysuria Musculoskeletal: Denies back pain or joint pain Integument: Denies rash Neurologic: Denies headache, focal weakness or sensory changes Endocrine: Denies polyuria or polydipsia Lymphatic: Denies swollen glands Psychiatric: Denies depression or anxiety Heart Score: Risk Factors: Risk Factors: DM, Current or recent (<one month) smoker, HTN, HLP, family history of CAD, obesity. Risk Scores: Score 0 - 3: 2.5% MACE over next 6 weeks - Discharge Home Score 4 - 6: 20.3% MACE over next 6 weeks - Admit for Clinical Observation Score 7 - 10: 72.7% MACE over next 6 weeks - Early Invasive Strategies Current Medications: Current Meds: Current Medications Medications (Trade) Dose Ordered Sig/Mani Start Time Stop Time Status Last Admin Dose Admin Fentanyl Citrate (Fentanyl 2ml Vial) 50 mcg 1X ONCE 04/02/20 12:45 04/02/20 12:57 DC 04/02/20 13:49 50 MCG Allergies: Allergies: Allergies Coded Allergies Type Severity Reaction Last Updated Verified Sulfa (Sulfonamide Antibiotics) Allergy Intermediate 02/15/20 Yes citric acid Allergy Intermediate 02/15/20 Yes honey Allergy Intermediate 02/16/20 Yes shellfish derived Allergy Intermediate 02/15/20 Yes Physical Exam: PE: Constitutional: Well developed, well nourished, no acute distress, non-toxic appearance. [] HENT: Normocephalic, atraumatic, bilateral external ears normal, oropharynx moist, no oral exudates, nose normal. [] Eyes: PERRLA, EOMI, conjunctiva normal, no discharge. [] Neck: Normal range of motion, no tenderness, supple, no stridor. [] Cardiovascular:Heart rate regular rhythm, no murmur [] Lungs & Thorax: Bilateral breath sounds clear to auscultation [] Abdomen: Bowel sounds normal, soft, no tenderness, no masses, no pulsatile masses. [] Skin: Warm, dry, no erythema, no rash. [] Back: No tenderness, no CVA tenderness. [] Extremities: No tenderness, no cyanosis, no clubbing, ROM intact, no edema. [] Neurologic: Alert and oriented X 3, normal motor function, normal sensory function, no focal deficits noted. [] Psychologic: Affect normal, judgement normal, mood normal. [] Current Patient Data: Vital Signs: Vital Signs Date Time Temp Pulse Resp B/P (MAP) Pulse Ox O2 Delivery O2 Flow Rate FiO2 04/02/20 13:49 16 91 04/02/20 12:23 97.9 104 104/70 (81) Room Air EKG: EKG: [] Radiology/Procedures: Radiology/Procedures: PROCEDURE: CT HEAD AND MAXILLOFACIAL WO Examination: CT HEAD AND MAXILLOFACIAL WO History: Reason: epistaxis, deformity to nose s/p blunt trauma, pain / Comparison/Correlation: 05/30/2019 CT head without contrast Findings: Axial images of the head and maxillofacial structures were obtained. Sagittal and coronal reformatted images of the maxillofacial structures were provided Axial images of the head and maxillofacial structures were provided. Sagittal and reformatted images were provided. No intracranial hemorrhage, midline shift, or mass effect. The globes and orbits are unremarkable. Small right maxillary sinus mucous retention cyst is present. Tongue piercing is present. Slightly displaced right nasal bone fracture is present. While it is new since 05/30/2019, there is no significant soft tissue swelling evident. Temporomandibular joints are unremarkable. The patient is edentulous. Impression: No intracranial hemorrhage. Right nasal bone fracture is new since the prior head CT exam but there is no soft tissue swelling swelling as would be expected in acute fracture. Correlate with symptoms and history of injury. PQRS Compliance Statement: One or more of the following individualized dose reduction techniques were utilized for this examination: 1. Automated exposure control 2. Adjustment of the mA and/or kV according to patient size 3. Use of iterative reconstruction technique Electronically signed by: Hoang Foster MD (04/02/2020 1:46 PM) [facility] Course & Med Decision Making: Course & Med Decision Making Pertinent Labs and Imaging studies reviewed. (See chart for details) [] Dragon Disclaimer: Dragon Disclaimer: This electronic medical record was generated, in whole or in part, using a voice recognition dictation system. Departure Departure: Impression: Primary Impression: Nasal fracture Disposition: 01 DC HOME SELF CARE/HOMELESS Condition: STABLE Referrals: GABRIEL DO MD (PCP) Patient Instructions: Nasal Fracture, [id number] Additional Instructions: Use humidifier at night. Follow closely with ENT. Dr. Brigid Holt Address: [address] [place] [address] [address], [place] [address] Do not soak your wound. You may shower. Clean wound daily with soap and water. Change dressing 2 times daily. Use over the counter antibiotic ointment with each dressing change. NELLIE CARRANZA DO Apr 02, 2020 14:42
[2020-04-02] MEDS ORDERED: NEOMY/BACITR/POLYMYXIN OINT PACKET. TP ONE (14:45)
[2020-04-03] MEDS ORDERED: SPIR25TA5 PO (16:06)
[2020-04-03] MEDS ORDERED: BACL20TA PO (16:06)
[2020-04-03] MEDS ORDERED: METH1TAB20 PO (16:06)
== END 2020-04-02 14:55 | disposition home or self-care (01) ==
LOC: ER 12:11
DX: S02.2XXA Fracture of nasal bones, initial encounter for closed fracture (principal); I50.9 Heart failure, unspecified; J44.9 Chronic obstructive pulmonary disease, unspecified; F17.210 Nicotine dependence, cigarettes, uncomplicated; Z86.14 Personal history of Methicillin resistant Staphylococcus aureus infection; Z86.73 Personal history of transient ischemic attack (TIA), and cerebral infarction without residual deficits; Z88.2 Allergy status to sulfonamides; Z91.018 Allergy to other foods; Z91.013 Allergy to seafood; W18.39XA Other fall on same level, initial encounter; Y93.89 Activity, other specified; Y92.89 Other specified places as the place of occurrence of the external cause; Y99.8 Other external cause status
CPT/HCPCS: 70450; 70486; 96372; 99285; J3010

== ENCOUNTER 2020-04-03 10:34 | Observation (INO) | payer OTHER, MEDICAID ==
[~2020-04-03] VITALS: Ht 152.4 cm; Wt 92.1 kg
[2020-04-03] MEDS ORDERED: NALOXONE 0.4 MG/ML VIAL. ONE (10:36)
[2020-04-03] MEDS ORDERED: NALOXONE 0.4 MG/ML VIAL. IV ONE ×2 (10:45→13:15)
[2020-04-03] MEDS ORDERED: IV NORMAL SALINE 1,000ML 1,000 ML IV ONE (10:45)
[2020-04-03 11:06] LABS: BASO # 0.1 x10^3/uL (0.0-0.2); BASO % 1 % (0-3); EOS # 0.5 x10^3/uL (0.0-0.7); EOS % 5 % (0-3); HEMATOCRIT 37.6 % (36.0-47.0); HEMOGLOBIN 11.1 g/dL (12.0-15.5); LYMPH # 2.4 x10^3/uL (1.0-4.8); LYMPH % 22 % (24-48); MEAN CORPUSCULAR HEMOGLOBIN 29 pg (25-35); MEAN CORPUSCULAR HGB CONC 30 g/dL (31-37); MEAN CORPUSCULAR VOLUME 97 fL (79-100); MONO # 0.5 x10^3/uL (0.0-1.1); MONO % 5 % (0-9); NEUT # 7.3 x10^3uL (1.8-7.7); NEUT % 68 % (31-73); PLATELET COUNT 246 x10^3/uL (140-400); RED BLOOD COUNT 3.88 x10^6/uL (3.50-5.40); RED CELL DISTRIBUTION WIDTH 18.5 % (11.5-14.5); WHITE BLOOD COUNT 10.8 x10^3/uL (4.0-11.0)
[2020-04-03 11:20] LABS: CALCIUM 9.2 mg/dL (8.5-10.1); CREATININE 1.4 mg/dL (0.6-1.0); GFR 40.7; POTASSIUM 4.3 mmol/L (3.5-5.1)
[2020-04-03 11:20] LABS: BARBITURATES NEG (NEG); BENZODIAZEPINES NEG (NEG); CANNABINOIDS NEG (NEG); COCAINE NEG (NEG); METHADONE NEG (NEG); OPIATES NEG (NEG); PHENCYCLIDINE NEG (NEG)
[2020-04-03 11:21] LABS: AMPHETAMINE/METHAMPHETAMINE NEG (NEG)
--- NOTE | 2020-04-03 11:23 | RAD ---
CT head without contrast PQRS statement: CT scans at this facility use dose reduction including either automated exposure control, iterative reconstructions, and /or weight based radiation dosing via mA and kV modification when appropriate to reduce radiation dose to as low as reasonably achievable. HISTORY: Altered mental status. Recent blunt trauma. COMPARISON: CT head April 02, 2020. FINDINGS: Low-lying cerebellum tonsils at the foramen magnum may represent tonsil ectopia or mild changes of Chiari malformation although no significant crowding of the tonsils with the brainstem are evident to otherwise suggest Chiari malformation, stable. No intracranial hemorrhage, mass, hydrocephalus, extra-axial fluid collections or infarction. No acute ischemic change. Orbits, mastoids and bones are unremarkable. IMPRESSION: No acute abnormality. Electronically signed by: Chato Mitchell MD (04/03/2020 11:20 AM) [id number]
[2020-04-03 11:26] LABS: SALIC 4.3 mg/dL (2.8-20.0)
[2020-04-03 11:27] LABS: ACETAMIN < 2.0 mcg/mL (10-30); ETHANOL < 10 mg/dL (0-10)
--- NOTE | 2020-04-03 11:30 | RAD ---
EXAM: CHEST 1 VIEW History: Altered mental status COMPARISON: None available. TECHNIQUE: Single portable radiograph of the chest FINDINGS: Low lung volumes and technique accentuates heart size and pulmonary vascularity. Minimal left lung base airspace opacities. Right-sided Port-A-Cath is again identified. IMPRESSION: Minimal left lung base airspace opacities likely atelectasis or infiltrate. Electronically signed by: Bert Gregg MD (04/03/2020 11:27 AM) [id number]
[2020-04-03 11:34] LABS: BACTERIA,URINE FEW /HPF (0-FEW); BILIRUBIN,URINE NEG (NEG); CLARITY,URINE CLOUDY; COLOR,URINE YELLOW; GLUCOSE,URINE NEG (NEG); NITRITE,URINE POS (NEG); SQUAMOUS EPITHELIAL CELL,UR FEW /LPF; UROBILINOGEN,URINE 0.2 mg/dL (0.2 mg/dL)
[2020-04-03 11:35] LABS: AMORPHOUS SEDIMENT,UR PRESENT /HPF
[2020-04-03 11:38] LABS: ALBUMIN 3.9 g/dL (3.4-5.0); ALBUMIN/GLOBULIN RATIO 1.3 (1.0-1.7); MAGNESIUM 2.4 mg/dL (1.8-2.4); TOTAL BILIRUBIN 0.4 mg/dL (0.2-1.0)
--- NOTE | 2020-04-03 12:06 | PHYS DOC ---
Past History Past Medical History: Asthma, CHF, COPD, Hypotension, MRSA, Stroke Additional Past Medical Histor: stroke, gastroparesis, spinal stenosis, anni disease, stroke (right side Past Surgical History: Cholecystectomy, Hysterectomy Additional Past Surgical Histo: suprapubic catheter Smoking: Cigarettes Alcohol Use: None Drug Use: None General Adult EDM: Chief Complaint: ALTERED MENTAL STATUS HPI: HPI: Patient is a [age] year old [sex] who presents with [] Review of Systems: Review of Systems: Constitutional: Denies fever or chills Eyes: Denies change in visual acuity HENT: Denies nasal congestion or sore throat Respiratory: Denies cough or shortness of breath Cardiovascular: Denies chest pain or edema GI: Denies abdominal pain, nausea, vomiting, bloody stools or diarrhea : Denies dysuria Musculoskeletal: Denies back pain or joint pain Integument: Denies rash Neurologic: Denies headache, focal weakness or sensory changes Endocrine: Denies polyuria or polydipsia Lymphatic: Denies swollen glands Psychiatric: Denies depression or anxiety Heart Score: Risk Factors: Risk Factors: DM, Current or recent (<one month) smoker, HTN, HLP, family hist ory of CAD, obesity. Risk Scores: Score 0 - 3: 2.5% MACE over next 6 weeks - Discharge Home Score 4 - 6: 20.3% MACE over next 6 weeks - Admit for Clinical Observation Score 7 - 10: 72.7% MACE over next 6 weeks - Early Invasive Strategies Current Medications: Current Meds: Current Medications Medications (Trade) Dose Ordered Sig/Mani Start Time Stop Time Status Last Admin Dose Admin Naloxone HCl (Narcan) 0.4 mg 1X ONCE 04/03/20 10:45 04/03/20 10:47 DC 04/03/20 10:49 0.4 MG Sodium Chloride 1,000 ml @ 1,000 mls/hr 1X ONCE 04/03/20 10:45 04/03/20 11:45 DC 04/03/20 11:23 1,000 MLS/HR Allergies: Allergies: Allergies Coded Allergies Type Severity Reaction Last Updated Verified Sulfa (Sulfonamide Antibiotics) Allergy Intermediate 02/15/20 Yes citric acid Allergy Intermediate 02/15/20 Yes honey Allergy Intermediate 02/16/20 Yes shellfish derived Allergy Intermediate 02/15/20 Yes Physical Exam: PE: Constitutional: Well developed, well nourished, no acute distress, non-toxic appearance. [] HENT: Normocephalic, atraumatic, bilateral external ears normal, oropharynx moist, no oral exudates, nose normal. [] Eyes: PERRLA, EOMI, conjunctiva normal, no discharge. [] Neck: Normal range of motion, no tenderness, supple, no stridor. [] Cardiovascular:Heart rate regular rhythm, no murmur [] Lungs & Thorax: Bilateral breath sounds clear to auscultation [] Abdomen: Bowel sounds normal, soft, no tenderness, no masses, no pulsatile masses. [] Skin: Warm, dry, no erythema, no rash. [] Back: No tenderness, no CVA tenderness. [] Extremities: No tenderness, no cyanosis, no clubbing, ROM intact, no edema. [] Neurologic: Alert and oriented X 3, normal motor function, normal sensory function, no focal deficits noted. [] Psychologic: Affect normal, judgement normal, mood normal. [] Current Patient Data: Labs: Laboratory Tests Test 04/03/20 10:42 04/03/20 10:47 White Blood Count 10.8 x10^3/uL (4.0-11.0) Red Blood Count 3.88 x10^6/uL (3.50-5.40) Hemoglobin 11.1 g/dL (12.0-15.5) L Hematocrit 37.6 % (36.0-47.0) Mean Corpuscular Volume 97 fL (79-100) Mean Corpuscular Hemoglobin 29 pg (25-35) Mean Corpuscular Hemoglobin Concent 30 g/dL (31-37) L Red Cell Distribution Width 18.5 % (11.5-14.5) H Platelet Count 246 x10^3/uL (140-400) Neutrophils (%) (Auto) 68 % (31-73) Lymphocytes (%) (Auto) 22 % (24-48) L Monocytes (%) (Auto) 5 % (0-9) Eosinophils (%) (Auto) 5 % (0-3) H Basophils (%) (Auto) 1 % (0-3) Neutrophils # (Auto) 7.3 x10^3uL (1.8-7.7) Lymphocytes # (Auto) 2.4 x10^3/uL (1.0-4.8) Monocytes # (Auto) 0.5 x10^3/uL (0.0-1.1) Eosinophils # (Auto) 0.5 x10^3/uL (0.0-0.7) Basophils # (Auto) 0.1 x10^3/uL (0.0-0.2) Prothrombin Time 10.2 SEC (9.4-11.4) Prothrombin Time INR 1.0 (0.9-1.1) Activated Partial Thromboplast Time 28 SEC (23-33) Sodium Level 143 mmol/L (136-145) Potassium Level 4.3 mmol/L (3.5-5.1) Chloride Level 106 mmol/L (98-107) Carbon Dioxide Level 23 mmol/L (21-32) Anion Gap 14 (6-14) Blood Urea Nitrogen 25 mg/dL (7-20) H Creatinine 1.4 mg/dL (0.6-1.0) H Estimated GFR (Cockcroft-Gault) 40.7 BUN/Creatinine Ratio 18 (6-20) Glucose Level 105 mg/dL (70-99) H Lactic Acid Level 1.6 mmol/L (0.4-2.0) Calcium Level 9.2 mg/dL (8.5-10.1) Magnesium Level 2.4 mg/dL (1.8-2.4) Total Bilirubin 0.4 mg/dL (0.2-1.0) Aspartate Amino Transferase (AST) 15 U/L (15-37) Alanine Aminotransferase (ALT) 21 U/L (14-59) Alkaline Phosphatase 99 U/L (46-116) Ammonia 10 mcmol/L (11-34) L Creatine Kinase 177 U/L (26-192) Creatine Kinase MB (Mass) 1.7 ng/mL (0.0-3.6) Creatine Kinase MB Relative Index 1.0 % (0-4) Troponin I Quantitative < 0.017 ng/mL (0-0.055) Total Protein 7.0 g/dL (6.4-8.2) Albumin 3.9 g/dL (3.4-5.0) Albumin/Globulin Ratio 1.3 (1.0-1.7) Salicylates Level 4.3 mg/dL (2.8-20.0) Salicylate Last Dose Date 04/03/20 Salicylate Last Dose Time 04/03/20 Acetaminophen Level < 2.0 mcg/mL (10-30) L Acetaminophen Last Dose Date 04/03/20 Acetaminophen Last Dose Time 04/03/20 Ethyl Alcohol Level < 10 mg/dL (0-10) Urine Collection Type Unknown Urine Color Yellow Urine Clarity Cloudy Urine pH 6.0 Urine Specific [place] 1.020 Urine Protein 30 mg/dl (NEG-TRACE) Urine Glucose (UA) Neg mg/dL (NEG) Urine Ketones (Stick) Neg mg/dL (NEG) Urine Blood Large (NEG) Urine Nitrite Pos (NEG) Urine Bilirubin Neg (NEG) Urine Urobilinogen Dipstick 0.2 mg/dL (0.2 mg/dL) Urine Leukocyte Esterase Small (NEG) Urine RBC 11-20 /HPF (0-2) Urine WBC 5-10 /HPF (0-4) Urine Squamous Epithelial Cells Few /LPF Urine Amorphous Sediment Present /HPF Urine Bacteria Few /HPF (0-FEW) Urine Mucus Slight /LPF Urine Opiates Screen Neg (NEG) Urine Methadone Screen Neg (NEG) Urine Barbiturates Neg (NEG) Urine Phencyclidine Screen Neg (NEG) Urine Amphetamine/Methamphetamine Neg (NEG) Urine Benzodiazepines Screen Neg (NEG) Urine Cocaine Screen Neg (NEG) Urine Cannabinoids Screen Neg (NEG) Urine Ethyl Alcohol (NEG) Vital Signs: Vital Signs Date Time Temp Pulse Resp B/P (MAP) Pulse Ox O2 Delivery O2 Flow Rate FiO2 04/03/20 11:59 70 14 106/67 (80) 100 Room Air 04/03/20 10:36 98.4 4.0 EKG: EKG: [] Radiology/Procedures: Radiology/Procedures: PROCEDURE: CT HEAD WO CONTRAST CT head without contrast PQRS statement: CT scans at this facility use dose reduction including either automated exposure control, iterative reconstructions, and /or weight based radiation dosing via mA and kV modification when appropriate to reduce radiation dose to as low as reasonably achievable. HISTORY: Altered mental status. Recent blunt trauma. COMPARISON: CT head April 02, 2020. FINDINGS: Low-lying cerebellum tonsils at the foramen magnum may represent tonsil ectopia or mild changes of Chiari malformation although no significant crowding of the tonsils with the brainstem are evident to otherwise suggest Chiari malformation, stable. No intracranial hemorrhage, mass, hydrocephalus, extra-axial fluid collections or infarction. No acute ischemic change. Orbits, mastoids and bones are unremarkable. IMPRESSION: No acute abnormality. Electronically signed by: Chato Mitchell MD (04/03/2020 11:20 AM) [id number] PROCEDURE: CHEST AP ONLY EXAM: CHEST 1 VIEW History: Altered mental status COMPARISON: None available. TECHNIQUE: Single portable radiograph of the chest FINDINGS: Low lung volumes and technique accentuates heart size and pulmonary vascularity. Minimal left lung base airspace opacities. Right-sided Port-A-Cath is again identified. IMPRESSION: Minimal left lung base airspace opacities likely atelectasis or infiltrate. Electronically signed by: Bert Gregg MD (04/03/2020 11:27 AM) [id number] Course & Med Decision Making: Course & Med Decision Making Pertinent Labs and Imaging studies reviewed. (See chart for details) [] Dragon Disclaimer: Dragon Disclaimer: This electronic medical record was generated, in whole or in part, using a voice recognition dictation system. Departure Departure: Impression: Primary Impression: Altered mental status Qualified Codes: R41.82 - Altered mental status, unspecified Additional Impression: Complicated UTI (urinary tract infection) Disposition: 01 DC HOME SELF CARE/HOMELESS Condition: STABLE Referrals: GABRIEL DO MD (PCP) NELLIE CARRANZA DO Apr 03, 2020 12:06
[2020-04-03] MEDS ORDERED: cefTRIAXone SODIUM 1 GM VIAL ONE (12:34)
[2020-04-03] MEDS ORDERED: IV NORMAL SALINE 50ML 50 ML ONE (12:34)
--- NOTE | 2020-04-03 13:03 | NUR ---
NURSING NOTE ORDERS OBTAINED DR HINES CALLED PRIOR TO ADMIT TO FLOOR. ORDER OBTAINED FOR NARCAN 1.2MG IV PUSH X1 DOSE. EVAN STORY.
--- NOTE | 2020-04-03 13:11 | HP ---
ADMIT DATE: 04/03/2020 ATTENDING PHYSICIAN: Dr. Simon. CHIEF COMPLAINT: Altered mentation. HISTORY OF PRESENT ILLNESS: The patient is a 44-year-old female with multiple medical issues. She is on multiple medicines. She has problem with narcotics addiction. She has a pain contract signed with a pain clinic. She is on an unspecified amount of narcotics. Exact dose is unclear. No one can give us the history. She was given an amp of Narcan. Minimal arousal. She had also fallen and broken her nose, nasal bone is fractured. She is admitted then with altered mentation due to overdose of narcotic medication. PAST MEDICAL HISTORY: Significant for opioid-induced constipation, chronic heart failure, [id number] diastolic blood loss anemia, cellulitis of the lower legs, multiple wounds of the skin, frequent UTIs, altered mentation, generalized weakness, supposed Nome's disease, although I do not see documentation; diarrhea, neurogenic bladder, most likely underlying depression with anxiety. ALLERGIES: Include SULFA, CITRIC ACID, HONEY AND SHELLFISH. Exact reaction is unclear scheduled. SCHEDULED MEDICATIONS: Include Tylenol, alprazolam, ascorbic acid, aspirin, baclofen, Cubicin recently, Cymbalta, fludrocortisone, fluticasone, Neurontin, hydrocortisone tablets, magnesium, melatonin, methamphetamine, Remeron, multivitamin, omeprazole, oxycodone and OxyContin, Protonix, potassium, Aldactone, Topamax, Torsemide, and trazodone. FAMILY HISTORY: Unobtainable. REVIEW OF SYSTEMS: Unobtainable. The patient is a smoker. No alcohol use. PHYSICAL EXAMINATION: GENERAL: When I saw her, this is an obtunded female who was snoring. INITIAL VITAL SIGNS: Showed a blood pressure 106/67, pulse is 70 and regular, temperature 98.4 degrees Fahrenheit, oxygen saturation 100% on 4 liters of nasal cannula. HEENT: Head is without trauma. Pupils are reactive. Sclerae nonicteric. Oropharynx is clear. NECK: Supple, no bruits identified. Pupils are pinpoint. LUNGS: Good breath sounds. CARDIOVASCULAR: Showed regular heart tones. No gallops. ABDOMEN: Obese, protuberant. No organomegaly. EXTREMITIES: Showed stasis dermatitis. There is 2+ edema. NEUROLOGIC: The patient is fast asleep and snoring and poorly arousable. PERTINENT LABORATORY AND X-RAY STUDIES: Hemoglobin is 11.1 g/dL with white count of 10,800. Electrolytes within normal range. Creatinine is 1.4 mg/dL. Cardiac enzymes were negative for coronary ischemia. The obligatory CT of the head showed no acute changes, bleeds or stroke. ASSESSMENT: 1. A 44-year-old female with altered mentation. 2. Probable opioid overdose. 3. Underlying depression with anxiety. 4. Polypharmacy. 5. Chronic pain syndrome and opioid dependence. 6. Cellulitis. 7. Stasis dermatitis. 8. Generalized debilitation. PLAN: 1. Observation status. 2. I will administer more Narcan when she is on the floor. 3. Continue some home meds. 4. Diet as tolerated. SCHUYLER HINES MD DR: NADEEM/shayna JOB#: [id number] / [id number]
[2020-04-03 13:51] VITALS: BP 133/80
--- NOTE | 2020-04-03 14:20 | NUR ---
NURSING NOTE ADMIT PT ADMIT TO ROOM 111 VIA EMS WITH DX OF AMS. PT AWAKE UPON ADMISSION, ABLE TO STATE HER NAME AND REPETITIVELY BUT UNABLE TO STATE THE DATE OR SITUATION. PT VITALS STABLE AT THIS TIME. IV NARCAN ORDERED BY DR HINES ADMINISTERED. NO CHANGE. PT CURRENTLY SLEEPING WITH OXYGEN NC 4 L ON. PT HAS MULTIPLE WOUNDS, PHOTOS OBTAINED. PER PT , SHE TOOK A LOT OF TRAZODONE LAST NIGHT WITH HER MELATONIN. WILL CONTINUE TO MONITOR. EVAN STORY.
--- NOTE | 2020-04-03 15:33 | NUR ---
NURSING NOTE DR HINES CALLED TO GET UPDATES ON PT. NARCAN DID NOT HELP AFTER ADMINISTRATION THIS AM. PT CURRENTLY SLEEPING. PER DR HINES, CONTINUE TO MONITOR AND LET PT SLEEP. EVAN STORY.
[2020-04-03] MEDS ORDERED: METH1TAB20 PO (16:06)
[2020-04-03] MEDS ORDERED: SPIR25TA5 PO (16:06)
[2020-04-03] MEDS ORDERED: BACL20TA PO (16:06)
[2020-04-03 19:41] VITALS: BP 115/76
[2020-04-03] MEDS: ACETAMINOPHEN 325 MG TABLET PO PRN (19:55)
[2020-04-03] MEDS: DULoxetine HCL 60 MG CAPSULE.DR PO SCH (21:06)
[2020-04-03] MEDS: TORSEMIDE 20 MG TABLET. PO SCH (21:06)
[2020-04-03] MEDS: TOPIRAMATE 25 MG TABLET. PO SCH (21:06)
[2020-04-03] MEDS: FLUDROCORTISONE 0.1 MG TABLET PO SCH (21:06)
[2020-04-03] MEDS: ASPIRIN 325 MG TABLET PO SCH (21:06)
[2020-04-03] MEDS: POTASSIUM CHLORIDE 20 MEQ TABLET.ER. PO SCH (21:07)
[2020-04-03 23:08] VITALS: BP 119/81
--- NOTE | 2020-04-03 23:37 | NUR ---
PT HAS BEEN AWAKE, A/OX3 SINCE BEGINNING OF SHIFT. SLOW TO RESPOND, BUT PT ATTRIBUTES THAT TO PRIOR CVA. PT DENIES ANY CURRENT SI/HI AND REPORTS ONLY TAKING HER PRESCRIBED DOSE OF TRAZODONE LAST NIGHT. PT C/O INCREASING MUSCLE CRAMPS TO BILATERAL HANDS AND FEET. PT GIVEN BANANA FOR SNACK, PER REQUEST. DR. HINES INFORMED OF PT STATUS, ORDER RECEIVED TO CONTINUE HOME DOSE OF BACLOFEN, GIVE DOSE NOW.
[2020-04-03] MEDS: BACLOFEN 20 MG TABLET PO SCH (23:57)
[2020-04-04] MEDS: ACETAMINOPHEN 325 MG TABLET PO PRN ×2 (02:05→08:09)
[2020-04-04 06:10] VITALS: BP 111/75
[2020-04-04] MEDS: TORSEMIDE 20 MG TABLET. PO SCH (08:09)
[2020-04-04] MEDS: DULoxetine HCL 60 MG CAPSULE.DR PO SCH (08:09)
[2020-04-04] MEDS: TOPIRAMATE 25 MG TABLET. PO SCH (08:09)
[2020-04-04] MEDS: ASPIRIN 325 MG TABLET PO SCH (08:09)
[2020-04-04] MEDS: BACLOFEN 20 MG TABLET PO SCH (08:10)
[2020-04-04] MEDS: FLUDROCORTISONE 0.1 MG TABLET PO SCH (08:10)
[2020-04-04] MEDS: POTASSIUM CHLORIDE 20 MEQ TABLET.ER. PO SCH (08:10)
--- NOTE | 2020-04-04 09:00 | NUR ---
PT DENIES ANY SI/HI THOUGHTS. PT STATES THAT HER TRAZODONE DOSE HAD BEEN INCREASED TO 150MG ON 03/22/20 AND HAS NOT HAD ANY PROBLEMS WITH NEW DOSAGE. PT STATES SHE HAS APPOINTMENT WITH DR. VILLEGAS THIS AFTERNOON THAT SHE WANTS TO KEEP. DR. HINES IS DISCHARGING PATIENT TODAY. PT WILL NEED TO SEE WOUND CARE AT HER USUAL FOLLOW UP, [facility] AL[facility]OUND CARE AT HOME. PT HAS BEEN VERY NEEDY LAST NIGHT AND TODAY, SHE IS PRESSING CALL LIGHT AGAIN BEFORE STAFF IS OUT OF THE ROOM. EXPLAINED TO PT THAT SHE SHOULD TRY TO HAVE HAS DO EVERYTHING WHEN ARE IN HER ROOM, SO WE CAN ATTEND TO OTHER PTS.
--- NOTE | 2020-04-04 09:23 | DS ---
DATE OF DISCHARGE: 04/04/2020 ATTENDING PHYSICIAN: Dr. Hines. FINAL DISCHARGE DIAGNOSES: 1. Altered mentation due to excessive narcotics. 2. Probable opioid overdose. 3. Underlying depression with anxiety. 4. Polypharmacy. 5. Chronic pain syndrome and opioid dependence. 6. History of cellulitis. 7. Stasis dermatitis. 8. Generalized debilitation. 9. Oxygen-dependent chronic obstructive pulmonary disease. HISTORY AND PHYSICAL: The patient is a 44-year-old female who has multiple medical issues. She has chronic pain syndrome. She is supposedly 24-hour a day oxygen therapy; however, she still chooses to smoke. She is aware that oxygen is flammable and she takes oxygen off before going outside to smoke. She has multiple psychiatric diagnoses. She is on quite a bit of medications. She was asleep, her could not wake her up, they called 911. She was admitted for observation. PHYSICAL EXAMINATION: Please see my dictated note. PERTINENT LABORATORY AND X-RAY STUDIES: The obligatory CT of the head demonstrated no acute changes. Chest x-ray was clear with minimal atelectasis at the bases. Hemoglobin maintained 11.1 g/dL with white count of 10,800. Electrolytes are within normal range. Creatinine is 1.4 mg percent. Cardiac enzymes negative for coronary ischemia. COURSE IN THE HOSPITAL: The patient was admitted overnight. She had several doses of Narcan. Eventually, she woke up by the morning of the second hospital day, her blood pressure was 111/75, pulse is 93 and regular, she is afebrile and oxygen saturation 94% on 3 liters nasal cannula. She was awake and alert. Her lungs were clear and her heart rate was regular. At this time, she is ready for discharge. She still thinks that she is going to take the increased dose of trazodone 150 at bedtime along with narcotics. Strong encouragement to quit smoking, whether or not she will quit smoking remains to be seen, she is very sad on her plan. Therefore, she is discharged home with no new medicines. She should continue her alprazolam, ascorbic acid, aspirin, baclofen, Cymbalta, fludrocortisone, Neurontin, hydrocodone p.r.n., Melatonin, Remeron, multivitamin, omeprazole, oxycodone p.r.n., potassium supplementation, Aldactone, Demadex and Topamax dose is unchanged. She was discharged then from our hospital in stable condition with explicit instructions and followup care with her primary care physician. SCHUYLER HINES MD DR: NADEEM/shayna JOB#: [id number] / [id number] Dr. Brando Allison
--- NOTE | 2020-04-04 10:37 | NUR ---
REVIEWED DISCHARGE INSTRUCTIONS WITH PT, PT REQUESTED TO SEE WOUND CARE TODAY, HOWEVER THEY WILL NOT BE HERE UNTIL EARLY EVENING AND SHE HAS AN APPOINTMENT WITH THEM TOMORROW. [employer] ASSISTED PT IN GETTING DRESS PRIOR TO DISCHARGE. IV HAS BEEN DC'D WITHOUT ANY COMPLICATIONS. PT WILL BE WHEELED TO FRONT ENTRANCE AND POV VIA WHEELCHAIR.
== END 2020-04-04 10:40 | disposition home or self-care (01) ==
LOC: ER 10:34 → 1 SOUTH 11:55
PROVIDERS: ADMIT Hospitalist; ATTEND Hospitalist
DX: R41.82 Altered mental status, unspecified (principal); F41.8 Other specified anxiety disorders; G89.4 Chronic pain syndrome; F11.20 Opioid dependence, uncomplicated; J44.9 Chronic obstructive pulmonary disease, unspecified; K59.03 Drug induced constipation; L03.116 Cellulitis of left lower limb; L03.115 Cellulitis of right lower limb; I50.9 Heart failure, unspecified; E27.1 Primary adrenocortical insufficiency; F17.200 Nicotine dependence, unspecified, uncomplicated; I87.2 Venous insufficiency (chronic) (peripheral); Z86.73 Personal history of transient ischemic attack (TIA), and cerebral infarction without residual deficits; Z87.440 Personal history of urinary (tract) infections; Z99.81 Dependence on supplemental oxygen; Z79.899 Other long term (current) drug therapy
CPT/HCPCS: 36415; 70450; 71045; 80053; 80307; 80329; 81001; 82140; 82553; 83605; 83735; 84484; 85025; 85610; 85730; 87077; 87086; 87186; 96361; 96365; 96366; 96375; 96376; 99285; G0378; G0480; J0696; J2310; J7030; G0379

== ENCOUNTER 2020-07-06 12:29 | Inpatient (IN) | payer OTHER, MEDICAID ==
[~2020-07-06] VITALS: Ht 152.4 cm; Wt 92.8 kg
--- NOTE | 2020-07-06 13:10 | PHYS DOC ---
Past History Past Medical History: Asthma, CHF, COPD, Hypotension, MRSA, Stroke Additional Past Medical Histor: stroke, gastroparesis, spinal stenosis, anni disease, stroke (right side Past Surgical History: Cholecystectomy, Hysterectomy Additional Past Surgical Histo: suprapubic catheter Smoking: Cigarettes Alcohol Use: None Drug Use: None General Adult EDM: Chief Complaint: SHORTNESS OF BREATH HPI: HPI: Patient is a 44-year-old female who presents with cough, fever, fatigue, shortness of breath for 2 days. Patient states she is normally on 4 L at home but they had to up her to 5 L because her oxygen level was staying below 90. Patient's highest fever at home was 100.9, patient's been taking Tylenol at home for fever. Patient states her [id number] is diagnosed with Covid 2 weeks ago and her had been visiting her. Patient states "I I would like to be admitted to the hospital normally try and go home on my own but I feel too bad". Denies pain. Nausea, vomiting, diarrhea. CHF, stroke, COPD, gastroparesis. Review of Systems: Review of Systems: Constitutional: Reports fever or chills Eyes: Denies change in visual acuity HENT: Denies nasal congestion or sore throat Respiratory: Reports cough and shortness of breath Cardiovascular: Denies chest pain or edema GI: Denies abdominal pain, nausea, vomiting, bloody stools or diarrhea : Denies dysuria Musculoskeletal: Denies back pain or joint pain Integument: Denies rash Neurologic: Denies headache, focal weakness or sensory changes Endocrine: Denies polyuria or polydipsia Lymphatic: Denies swollen glands Psychiatric: Denies depression or anxiety Allergies: Allergies: Allergies Coded Allergies Type Severity Reaction Last Updated Verified Sulfa (Sulfonamide Antibiotics) Allergy Intermediate 02/15/20 Yes citric acid Allergy Intermediate 02/15/20 Yes honey Allergy Intermediate 02/16/20 Yes shellfish derived Allergy Intermediate 02/15/20 Yes Physical Exam: PE: Constitutional: Well developed, well nourished, no acute distress, non-toxic appearance. [] HENT: Normocephalic, atraumatic, bilateral external ears normal, oropharynx moist, no oral exudates, nose normal. [] Eyes: PERRLA, EOMI, conjunctiva normal, no discharge. [] Neck: Normal range of motion, no tenderness, supple, no stridor. [] Cardiovascular:Heart rate regular rhythm, no murmur [] Lungs & Thorax: Bilateral breath sounds clear to auscultation [] Abdomen: Bowel sounds normal, soft, no tenderness, no masses, no pulsatile masses. [] Skin: Warm, dry, no erythema, no rash. [] Back: No tenderness, no CVA tenderness. [] Extremities: No tenderness, no cyanosis, no clubbing, ROM intact, no edema. [] Neurologic: Alert and oriented X 3, normal motor function, normal sensory function, no focal deficits noted. [] Psychologic: Affect normal, judgement normal, mood normal. [] EKG: EKG: Sinus rhythm, heart rate 86 bpm, read by Dr. Stevenson at 1303. [] Radiology/Procedures: Radiology/Procedures: []EXAMINATION: XR CHEST 1V CLINICAL HISTORY: Shortness of breath, cough EXAM DATE/TIME: 07/06/2020 1:10 PM COMPARISON: 04/03/2020 FINDINGS: Lines, Tubes, and Devices: Right internal jugular Port-A-Cath terminating near the cavoatrial junction. Catheter port projects more inferiorly over the right hemithorax, but this is likely related to patient positioning. Cardiomediastinal Silhouette: Normal heart size. Aortic atherosclerotic calcification. Lungs and Pleura: Mild patchy opacities in bilateral lower lung zones, greater on the right. No evidence of pleural effusion. Pulmonary vasculature unremarkable. Elevation left hemidiaphragm. Bones and Soft Tissues: No acute osseous abnormality. IMPRESSION: Mild patchy airspace disease in the right greater than left lower lung zones. Electronically signed by: Anders Franks DO (07/06/2020 1:47 PM) [id number] EXAMINATION: CTA CHEST CLINICAL HISTORY: Shortness of breath, elevated d-dimer Technique: Spiral CT acquisition of the chest from the thoracic inlet to the upper abdomen following IV contrast with coronal and sagittal reformatted images also provided for review. CT Dose Reduction Employed: One or more of the following individualized dose reduction techniques were utilized for this examination: 1. Automated exposure control 2. Adjustment of the mA and/or kV according to patient size 3. Use of iterative reconstruction technique. Comparison: Chest radiograph same day FINDINGS: Limitations: None. Lines, Tubes, and Devices: Cannulated right internal jugular Port-A-Cath terminating in the superior right atrium. Pulmonary Vasculature: No evidence of main, lobar, or segmental pulmonary arterial thrombus. Normal caliber of the main pulmonary artery. Lung Parenchyma, Pleura, and Airways: Mild curvilinear subsegmental atelectasis and/or scarring in the anteromedial right middle lobe and bilateral lung bases. Questionable mild superimposed patchy consolidation in the left lung base. No suspicious pulmonary nodule. No pleural effusion. Central airways patent. Lower Neck, Lymph Nodes, and Mediastinum: 6 mm hypodense nodule in the left lobe of the thyroid for which no follow-up is recommended at this time. No mediastinal, hilar, or axillary lymphadenopathy. Heart, Pericardium, and Thoracic Vessels: Cardiac chambers normal in size. No pericardial effusion. Thoracic aorta within normal limits. No coronary artery atherosclerotic calcifications are noted, although the study is not optimized for coronary assessment. Bones and Soft Tissues: Degenerative changes in the thoracic spine. Upper Abdomen: Partially visualized upper abdomen unremarkable. IMPRESSION: No evidence of main, lobar, or segmental pulmonary embolus. Mild curvilinear subsegmental atelectasis and/or scarring as described with questionable mild superimposed patchy consolidation in the left lung base. This is nonspecific but could represent very mild pneumonia, correlate clinically. Electronically signed by: Anders Franks DO (07/06/2020 4:07 PM) [id number] Heart Score: Risk Factors: Risk Factors: DM, Current or recent (<one month) smoker, HTN, HLP, family history of CAD, obesity. Risk Scores: Score 0 - 3: 2.5% MACE over next 6 weeks - Discharge Home Score 4 - 6: 20.3% MACE over next 6 weeks - Admit for Clinical Observation Score 7 - 10: 72.7% MACE over next 6 weeks - Early Invasive Strategies Course & Med Decision Making: Course & Med Decision Making Pertinent Labs and Imaging studies reviewed. (See chart for details) [] Patient is a 44-year-old female who presents with cough, fever, fatigue, shortness of breath for 2 days. Patient states she is normally on 4 L at home but they had to up her to 5 L because her oxygen level was staying below 90. Patient's highest fever at home was 100.9, patient's been taking Tylenol at home for fever. Patient states her [id number]-ufn is diagnosed with Covid 2 weeks ago and her had been visiting her. Patient states "I I would like to be admitted to the hospital normally try and go home on my own but I feel too bad". Denies pain. Nausea, vomiting, diarrhea. CHF, stroke, COPD, gastroparesis. Lactate 353. CReactive Protein 7.2, D.Dimer 1.49. CTA ordered to r/o PE. UTI positive for nitrates, WBC. Rocephin, Azithromycin, Dexamtheasone give in the ED. CXR shows mild, patchy, right lower lobes. . Spoke with Dr. Simon who agrees to admit patient to the hospital. Patient is also happy with this plan. 1.R/O Covid, viral pneumonia 2. UTI Dragon Disclaimer: Adalid Disclaimer: This electronic medical record was generated, in whole or in part, using a voice recognition dictation system. Departure Departure: Impression: Primary Impression: Person under investigation for COVID-19 Additional Impression: UTI (urinary tract infection) Qualified Codes: N30.00 - Acute cystitis without hematuria Disposition: ADMITTED INPT THIS HOSP Admitting Physician: Lenin Simon Condition: STABLE Referrals: AGBRIEL OD MD (PCP) EVERETTE SANTOYO APRN Jul 06, 2020 13:10
[2020-07-06 13:36] LABS: BASO # 0.1 x10^3/uL (0.0-0.2); BASO % 1 % (0-3); EOS # 0.1 x10^3/uL (0.0-0.7); EOS % 1 % (0-3); HEMATOCRIT 31.1 % (36.0-47.0); HEMOGLOBIN 9.4 g/dL (12.0-15.5); LYMPH # 1.6 x10^3/uL (1.0-4.8); LYMPH % 14 % (24-48); MEAN CORPUSCULAR HEMOGLOBIN 33 pg (25-35); MEAN CORPUSCULAR HGB CONC 30 g/dL (31-37); MEAN CORPUSCULAR VOLUME 109 fL (79-100); MONO # 0.6 x10^3/uL (0.0-1.1); MONO % 5 % (0-9); NEUT # 8.9 x10^3uL (1.8-7.7); NEUT % 79 % (31-73); PLATELET COUNT 171 x10^3/uL (140-400); RED BLOOD COUNT 2.84 x10^6/uL (3.50-5.40); RED CELL DISTRIBUTION WIDTH 17.1 % (11.5-14.5); WHITE BLOOD COUNT 11.3 x10^3/uL (4.0-11.0)
--- NOTE | 2020-07-06 13:50 | RAD ---
EXAMINATION: XR CHEST 1V CLINICAL HISTORY: Shortness of breath, cough EXAM DATE/TIME: 07/06/2020 1:10 PM COMPARISON: 04/03/2020 FINDINGS: Lines, Tubes, and Devices: Right internal jugular Port-A-Cath terminating near the cavoatrial junctio n. Catheter port projects more inferiorly over the right hemithorax, but this is likely related to pa tient positioning. Cardiomediastinal Silhouette: Normal heart size. Aortic atherosclerotic calcification. Lungs and Pleura: Mild patchy opacities in bilateral lower lung zones, greater on the right. No evide nce of pleural effusion. Pulmonary vasculature unremarkable. Elevation left hemidiaphragm. Bones and Soft Tissues: No acute osseous abnormality. IMPRESSION: Mild patchy airspace disease in the right greater than left lower lung zones. Electronically signed by: Anders Franks DO (07/06/2020 1:47 PM) [id number]
[2020-07-06 13:59] LABS: ALBUMIN 3.2 g/dL (3.4-5.0); CALCIUM 8.7 mg/dL (8.5-10.1); CREATININE 1.3 mg/dL (0.6-1.0); GFR 44.3; TOTAL BILIRUBIN 0.3 mg/dL (0.2-1.0); TOTAL PROTEIN 6.3 g/dL (6.4-8.2)
[2020-07-06 14:23] LABS: BILIRUBIN,URINE NEG (NEG); CLARITY,URINE HAZY; COLOR,URINE YELLOW; GLUCOSE,URINE NEG (NEG); NITRITE,URINE POS (NEG); UROBILINOGEN,URINE 0.2 mg/dL (0.2 mg/dL)
[2020-07-06 14:24] LABS: BACTERIA,URINE 0 /HPF (0-FEW); RBC,URINE 0 /HPF (0-2); SQUAMOUS EPITHELIAL CELL,UR FEW /LPF
[2020-07-06] MEDS ORDERED: AZITHROMYCIN 500 MG in IV NORMAL SALINE 250ML 250 ML IV ONE (14:30)
[2020-07-06] MEDS ORDERED: DEXAMETHASONE SOD PHOS 10 MG/ML VIAL. IV ONE (14:30)
[2020-07-06] MEDS ORDERED: IOHEXOL 350 MG/ML 100 ML VIAL. IV ONE ×2 (14:45)
[2020-07-06] MEDS ORDERED: IV NORMAL SALINE 250ML 250 ML ONE (14:55)
[2020-07-06] MEDS ORDERED: AZITHROMYCIN 500 MG VIAL. IV ONE (14:56)
[2020-07-06] MEDS ORDERED: IV NORMAL SALINE 50ML 50 ML ONE (14:56)
[2020-07-06] MEDS ORDERED: cefTRIAXone SODIUM 1 GM VIAL ONE (14:56)
--- NOTE | 2020-07-06 14:57 | EKG ---
[address] [address] Test Date: 2020-07-06 Test Time: 12:55:13 Pat Name: ROSANGELA FLORENCE Department: Room: Gender: F Mba Intern: SCOTT : 1975 Requested By: EVERETTE SANTOYO Order Number: [id number] Reading MD: Measurements Intervals [place] Rate: 86 P: 31 CO: 130 QRS: -2 QRSD: 84 T: 27 QT: 372 QTc: 448 Interpretive Statements SINUS RHYTHM LEFTWARD AXIS OTHERWISE NORMAL ECG RI6.02 No previous ECG available for comparison
[2020-07-06] MEDS ORDERED: HYDROcodone/APAP 5/325MG 1 TAB TABLET PO ONE (15:45)
--- NOTE | 2020-07-06 16:10 | RAD ---
EXAMINATION: CTA CHEST CLINICAL HISTORY: Shortness of breath, elevated d-dimer Technique: Spiral CT acquisition of the chest from the thoracic inlet to the upper abdomen following IV contrast with coronal and sagittal reformatted images also provided for review. CT Dose Reduction Employed: One or more of the following individualized dose reduction techniques wer e utilized for this examination: 1. Automated exposure control 2. Adjustment of the mA and/or kV ac cording to patient size 3. Use of iterative reconstruction technique. Comparison: Chest radiograph same day FINDINGS: Limitations: None. Lines, Tubes, and Devices: Cannulated right internal jugular Port-A-Cath terminating in the superior right atrium. Pulmonary Vasculature: No evidence of main, lobar, or segmental pulmonary arterial thrombus. Normal c aliber of the main pulmonary artery. Lung Parenchyma, Pleura, and Airways: Mild curvilinear subsegmental atelectasis and/or scarring in th e anteromedial right middle lobe and bilateral lung bases. Questionable mild superimposed patchy cons olidation in the left lung base. No suspicious pulmonary nodule. No pleural effusion. Central airways patent. Lower Neck, Lymph Nodes, and Mediastinum: 6 mm hypodense nodule in the left lobe of the thyroid for w hich no follow-up is recommended at this time. No mediastinal, hilar, or axillary lymphadenopathy. Heart, Pericardium, and Thoracic Vessels: Cardiac chambers normal in size. No pericardial effusion. T horacic aorta within normal limits. No coronary artery atherosclerotic calcifications are noted, alth ough the study is not optimized for coronary assessment. Bones and Soft Tissues: Degenerative changes in the thoracic spine. Upper Abdomen: Partially visualized upper abdomen unremarkable. IMPRESSION: No evidence of main, lobar, or segmental pulmonary embolus. Mild curvilinear subsegmental atelectasis and/or scarring as described with questionable mild superim posed patchy consolidation in the left lung base. This is nonspecific but could represent very mild p neumonia, correlate clinically. Electronically signed by: Anders Franks DO (07/06/2020 4:07 PM) [id number]
[2020-07-06 17:12] VITALS: BP 110/66
--- NOTE | 2020-07-06 18:00 | NUR ---
The patient, ROSANGELA FLORENCE, 44 y/o, F admitted by UMESH HOLCOMB MD, was given written information regarding hospital policies, unit procedures and contact persons. Valuables were checked and VS taken, please see chart .
[2020-07-06] MEDS ORDERED: PANT40TA3 PO (18:07)
[2020-07-06] MEDS ORDERED: TRAZ150T49 PO (18:07)
[2020-07-06] MEDS ORDERED: PHEN-318 PO (18:07)
[2020-07-06] MEDS ORDERED: MAGN400T30 PO (18:07)
[2020-07-06] MEDS ORDERED: METO5TAB4 PO (18:07)
[2020-07-06] MEDS ORDERED: ONDA4TAB12 PO (18:07)
[2020-07-06] MEDS ORDERED: OXYC1TAB22 PO (18:07)
[2020-07-06] MEDS ORDERED: GUAI-112 PO (18:07)
[2020-07-06] MEDS ORDERED: ACET325T9 PO (18:07)
[2020-07-06] MEDS ORDERED: CHOL20009 PO (18:13)
[2020-07-06 19:23] VITALS: BP 111/69
[2020-07-06] MEDS ORDERED: ACETAMINOPHEN 325 MG TABLET PO PRN (19:45)
[2020-07-06] MEDS ORDERED: FLUTICASONE 50MCG/NASAL SPRAY 16GM BOTTLE. NS PRN (19:45)
[2020-07-06] MEDS: MELATONIN 3 MG TABLET PO SCH ×2 (21:00→21:06)
[2020-07-06] MEDS ORDERED: PHENAZOPYRIDINE 200 MG TABLET. PO SCH (21:00)
[2020-07-06] MEDS ORDERED: NON FORMULARY ITEM (Omeprazole 1 CAP) PO SCH (21:00)
[2020-07-06] MEDS: MIRTAZAPINE 30 MG TABLET PO SCH (21:06)
[2020-07-06] MEDS: DULoxetine HCL 60 MG CAPSULE.DR PO SCH (21:06)
[2020-07-06] MEDS: oxyCODONE/APAP 10/325 1 TAB TABLET PO PRN (21:07)
[2020-07-06] MEDS: ALPRAZolam 0.25 MG TABLET PO SCH (21:07)
[2020-07-06] MEDS: ASPIRIN 325 MG TABLET PO SCH (21:07)
[2020-07-06] MEDS: ASCORBIC ACID 500 MG TABLET PO SCH (21:07)
[2020-07-06] MEDS: traZODone 150 MG TABLET. PO SCH (21:07)
[2020-07-06] MEDS: POTASSIUM CHLORIDE 20 MEQ TABLET.ER. PO SCH (21:08)
[2020-07-06] MEDS: BACLOFEN 20 MG TABLET PO SCH (21:09)
[2020-07-06] MEDS: MAGNESIUM OXIDE 400 MG TABLET PO SCH (21:09)
[2020-07-06] MEDS: CHOLECALCIFEROL (VITAMIN D3) 1,000 UNIT TABLET PO SCH (21:09)
[2020-07-06] MEDS: GABAPENTIN 300 MG CAPSULE. PO SCH (21:09)
[2020-07-06] MEDS: TOPIRAMATE 25 MG TABLET. PO SCH (21:10)
[2020-07-06] MEDS: PANTOPRAZOLE 40 MG TABLET. PO SCH (21:10)
[2020-07-06] MEDS: SPIRONOLACTONE 25 MG TABLET PO SCH (21:10)
[2020-07-06] MEDS: MULTIVITAMIN with MINERAL TABLET. PO SCH (21:10)
[2020-07-06] MEDS: TORSEMIDE 20 MG TABLET. PO SCH (21:11)
[2020-07-06 22:38] VITALS: BP 94/60
[2020-07-07] MEDS ORDERED: MELATONIN 3 MG TABLET PO PRN (03:30)
[2020-07-07] MEDS: oxyCODONE/APAP 10/325 1 TAB TABLET PO PRN ×4 (03:49→21:32)
[2020-07-07 05:42] VITALS: BP 101/69
[2020-07-07 06:32] LABS: BASO % 1 % (0-3); EOS % 0 % (0-3); HEMATOCRIT 30.7 % (36.0-47.0); HEMOGLOBIN 9.3 g/dL (12.0-15.5); LYMPH # 0.5 x10^3/uL (1.0-4.8); LYMPH % 9 % (24-48); MEAN CORPUSCULAR HEMOGLOBIN 33 pg (25-35); MEAN CORPUSCULAR HGB CONC 30 g/dL (31-37); MEAN CORPUSCULAR VOLUME 110 fL (79-100); MONO # 0.1 x10^3/uL (0.0-1.1); MONO % 2 % (0-9); NEUT % 88 % (31-73); PLATELET COUNT 191 x10^3/uL (140-400); RED CELL DISTRIBUTION WIDTH 16.5 % (11.5-14.5); WHITE BLOOD COUNT 5.7 x10^3/uL (4.0-11.0)
[2020-07-07 06:42] LABS: ALBUMIN 3.1 g/dL (3.4-5.0); CALCIUM 8.2 mg/dL (8.5-10.1); CREATININE 1.1 mg/dL (0.6-1.0); GFR 53.7; POTASSIUM 3.6 mmol/L (3.5-5.1); TOTAL BILIRUBIN 0.3 mg/dL (0.2-1.0); TOTAL PROTEIN 6.3 g/dL (6.4-8.2)
[2020-07-07] MEDS: metOLazone 5 MG TABLET PO SCH (08:06)
[2020-07-07] MEDS: ASPIRIN 325 MG TABLET PO SCH ×2 (08:06→21:29)
[2020-07-07] MEDS: CHOLECALCIFEROL (VITAMIN D3) 1,000 UNIT TABLET PO SCH ×3 (08:06→21:28)
[2020-07-07] MEDS: DULoxetine HCL 60 MG CAPSULE.DR PO SCH ×2 (08:07→21:29)
[2020-07-07] MEDS: SPIRONOLACTONE 25 MG TABLET PO SCH ×2 (08:07→21:29)
[2020-07-07] MEDS: ALPRAZolam 0.25 MG TABLET PO SCH ×2 (08:07→21:29)
[2020-07-07] MEDS: GABAPENTIN 300 MG CAPSULE. PO SCH ×3 (08:07→21:29)
[2020-07-07] MEDS: PHENAZOPYRIDINE 200 MG TABLET. PO SCH ×3 (08:07→21:29)
[2020-07-07] MEDS: PANTOPRAZOLE 40 MG TABLET. PO SCH ×2 (08:07→21:31)
[2020-07-07] MEDS: TOPIRAMATE 25 MG TABLET. PO SCH ×2 (08:07→21:29)
[2020-07-07] MEDS: MAGNESIUM OXIDE 400 MG TABLET PO SCH ×2 (08:08→21:29)
[2020-07-07] MEDS: ONDANSETRON ODT 4 MG TAB.RAPDIS PO SCH ×3 (08:08→15:50)
[2020-07-07] MEDS: TORSEMIDE 20 MG TABLET. PO SCH ×3 (08:08→21:29)
[2020-07-07] MEDS: MULTIVITAMIN with MINERAL TABLET. PO SCH ×2 (08:08→21:29)
[2020-07-07] MEDS: BACLOFEN 20 MG TABLET PO SCH ×3 (08:08→21:29)
[2020-07-07] MEDS: AZITHROMYCIN 250 MG TABLET. PO SCH (08:08)
[2020-07-07] MEDS: POTASSIUM CHLORIDE 20 MEQ TABLET.ER. PO SCH ×3 (08:08→21:30)
[2020-07-07] MEDS: ASCORBIC ACID 500 MG TABLET PO SCH ×3 (08:08→21:29)
[2020-07-07] MEDS: DEXAMETHASONE SOD PHOS 10 MG/ML VIAL. IV SCH (08:09)
[2020-07-07] MEDS: HYDROCORTISONE 10 MG TABLET PO SCH ×2 (09:13→21:31)
[2020-07-07] MEDS: guaiFENesin/PS-EPHED 600/60MG 1 TAB TAB.ER.12H PO SCH ×2 (09:13→21:32)
[2020-07-07] MEDS: FLUDROCORTISONE 0.1 MG TABLET PO SCH ×2 (09:13→21:31)
[2020-07-07 10:55] VITALS: BP 92/53
--- NOTE | 2020-07-07 15:26 | HP ---
ADMIT DATE: 07/06/2020 HISTORY OF PRESENT ILLNESS: The patient is a 44-year-old female patient who presented to the Emergency Room with a complaint of cough, fever, fatigue, and shortness of breath for the last 2 days. The patient states that she is normally on 4 liters at home, but they had dropped her to 5 liters because her oxygen level was staying below 90. Her highest temperature at home was 100.9. She has been taking Tylenol at home for fever. The patient states that her cjrihx-ny-epb was diagnosed with COVID-19 two weeks ago and her had been visiting her. She states that they would like to be admitted to the hospital normally "trying to go home on my own, I feel too bad." However, she denied any pain, nausea, vomiting, or diarrhea. The patient was extensively investigated in the Emergency Room and has had lab work including a CBC and chemistry, which showed that her potassium is low at 3. D-dimer was slightly elevated at 1.49. Urinalysis was essentially unremarkable. She did have a CT angio of the chest, which showed no evidence of main lobar or segmental pulmonary embolus. She has mild curvilinear subsegmental atelectasis and/or scarring as described with questionable mild superimposed patchy consolidation in the left lung base. This is nonspecific and could represent some very mild pneumonia. Please correlate clinically. The patient was admitted with questionable, as the patient is under investigation, for possible coronavirus infection. Her urinalysis showed that her urine was positive for nitrite, there was 5-10 rbc's, and a small amount of leukocyte esterase; and therefore, the patient was admitted with possible coronavirus infection as well as questionable UTI. She was started on IV ceftriaxone as well as Zithromax and dexamethasone. Continue with all her other medications. 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 She has gastroparesis, for which she has underwent gastrectomy bronchial asthma, chronic obstructive pulmonary disease. She had mild stroke with left-sided weakness, hypertension, history of methicillin-resistant Staphylococcus aureus infection, lumbar spinal stenosis. She also had a history of C. diff colitis, pulmonary embolism, hemorrhoids, hiatal hernia, body image disorder, kidney stones, footdrop, anxiety, depression, and tobacco use. She has also history of acute on chronic diastolic congestive heart failure, history of acute kidney injury due to cardiorenal syndrome. PAST SURGICAL HISTORY: Significant for tonsillectomy, adenoidectomy, cholecystectomy, gastrectomy, multiple abdominal surgeries, history of PEG tube placement, ventral hernia repair, and cyst excision, hysterectomy, and most recently a right rotator cuff tear repair. ALLERGIES: She is allergic to SULFA DRUGS, CITRIC ACID, and SHELLFISH. FAMILY HISTORY: She has 2 brothers, both older and alive. Her older brother has diabetes and hypertension. Her younger brother has hypertension. His diabetes was ameliorated after he underwent bypass surgery. Her father is still alive at the age of 73. He is known to have myocardial infarction and underwent 5-vessel coronary artery bypass graft surgery. Her mother is still alive at the age of 72, has had myocardial infarction, for which she underwent PCI and stent deployment. SOCIAL HISTORY: She is , has 1 son. She smokes half a pack a day. She does not drink alcohol or use recreational drugs. 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 MEDICATIONS: She is currently on following medications: She is on baclofen 20 mg 3 times a day, spironolactone 25 mg twice a day, aspirin 325 mg twice a day, oxycodone/APAP 10/325 q.i.d., acetaminophen 650 mg q.i.d., gabapentin 300 mg 3 times a day, topiramate 50 mg twice a day. She is on Cymbalta 60 mg twice a day, mirtazapine 30 mg at bedtime, trazodone 150 mg at bedtime, alprazolam 0.25 mg twice a day. She is on potassium chloride 20 mEq 3 times a day. She takes 3 tablets 3 times a day, furosemide 20 mg 3 times a day, metolazone 5 mg daily. She is on guaifenesin/pseudoephedrine 1 tablet twice a day for 10 days. She is on fluticasone propionate nasal spray 1 spray to each nostril once a day, magnesium oxide 400 mg twice a day, ondansetron 4 mg 2 times a day before meals, omeprazole 20 mg once a day at bedtime, Protonix 40 mg twice a day, fludrocortisone acetate 0.1 mg, she takes 300 mcg twice a day, hydrocortisone 20 mg twice a day, phenazopyridine 200 mg 4 times a day, ascorbic acid 1000 mg 3 times a day, cholecalciferol 50 mcg 3 times a day, multivitamin 1 tablet twice a day, melatonin 20 mg at bedtime. REVIEW OF SYSTEMS: As per history of present illness. PHYSICAL EXAMINATION: GENERAL: On arrival to the Emergency Room, the patient looked somewhat pale, but no jaundice, cyanosis, or thyromegaly. No jugular venous distention. Mild lower limb edema. VITAL SIGNS: Her heart rate was 84, blood pressure was 119/74, temperature was 99, respiratory rate was 17, and oxygen saturation was 94% on 5 liters of oxygen. HEAD, EYES, EARS, NOSE, AND THROAT: Showed normocephalic, atraumatic. NECK: Supple. HEART: Showed normal first and second heart sounds. No gallop, rub, or murmur. CHEST: Showed central trachea. She does have equal bilateral chest expansion, air entry, vesicular sounds with crepitation, mostly in the left side posteriorly. I could not appreciate any rhonchi. ABDOMEN: Distended, soft, and nontender. NEUROLOGIC: She is grossly intact. LABORATORY DATA: Her lab work on arrival showed a white cell count of 11,300, hemoglobin 9.4, hematocrit 31, MCV 109, and platelet count of 171,000 with normal manual differential. Her chemistry showed a serum sodium of 142, potassium 3, chloride 105, bicarbonate 31, anion gap of 6, BUN 24, creatinine 1.3, and estimated GFR was 44 mL per minute. Her glucose 124, calcium was 8.7. Total bilirubin, AST, ALT, and alkaline phosphatase were normal. Lactate dehydrogenase was 353. CK was 194. C-reactive protein was 7.2. Total protein 6.3, albumin was 3.2. Her D-dimer was 1.49. Urinalysis showed the urine was yellow, hazy with a pH of 7, specific gravity 1.015. The urine was negative for protein, glucose, and ketones. There is trace of blood, positive for urine nitrite, negative for bilirubin. There is small amount of leukocyte esterase, 5-10 wbc's, and urine bacteria were 0. Her chest x-ray was unremarkable. CT scan of the chest showed that there is no evidence of main lobar or segmental pulmonary embolus. She has mild curvilinear subsegmental atelectasis and/or scarring ASSESSMENT AND PLAN: 1. As described, the questionable mild superimposed patchy consolidation in the left lung base. This is nonspecific and could represent a mild pneumonia, correlate clinically. The patient was admitted as a person under investigation. 2. Urinary tract infection. 3. Hypokalemia. 4. The patient has a multitude of other medical problems including Charles's disease, congestive heart failure, and COPD. We will continue with IV antibiotic, IV dexamethasone, replenish her potassium, and decide on further management accordingly. UMESH HOLCOMB MD DR: RONALD/shayna JOB#: [id number] / [id number]
[2020-07-07 15:34] VITALS: BP 99/63
--- NOTE | 2020-07-07 18:36 | PN ---
DATE: 07/07/2020 SUBJECTIVE: The patient is resting slightly propped up in bed, in no apparent distress. She is awake, alert. On questioning her, she continued to have mild shortness of breath and cough. However, she has had no fever. PHYSICAL EXAMINATION: GENERAL: When I examined her, she was pale, but no jaundice, cyanosis, or thyromegaly. No jugular venous distension. Mild bilateral lower limb edema. VITAL SIGNS: Her heart rate was 85, blood pressure was 92/53, temperature was 97.9, respiratory rate 20, and oxygen saturation was 92% on 5 liters of oxygen. HEAD, EYES, EARS, NOSE, AND THROAT: Showed normocephalic, atraumatic. NECK: Supple. HEART: Normal first and second heart sounds. No gallop, rub or murmur. CHEST: Shows central trachea, equally reduced expansion, reduced air entry, expands with crepitation mostly in the left side posteriorly. ABDOMEN: Distended, soft, nontender with suprapubic catheter in place. NEUROLOGIC: She is awake, alert, responding appropriately. All cranial nerves are intact. She moves extremities without difficulty. She has multiple wounds in both lower extremities and her left upper extremity covered with dressing. Her intake and output were incompletely recorded. LABORATORY DATA: Her lab work this morning showed her white cell count is down to 5700, hemoglobin 9.3, hematocrit 30, MCV 110 and a platelet count of 191,000 with a manual differential showed 88% polymorphs, 9% lymphocytes and 2% monocytes. Serum sodium was 141, potassium 3.6, chloride 105, bicarbonate 29, anion gap of 7, BUN 21, creatinine was 1.1, estimated GFR was 53 mL per minute, her glucose 114. Lactic acid was 1.3. Calcium was 8.2. Total bilirubin, AST, ALT, alkaline phosphatase were normal. Her C-reactive protein was 7.2, total protein 6.3, albumin 3.1. Her D-dimer was 1.49. Urinalysis was positive for nitrite. There was small amount of leukocyte esterase, 5-10 wbc's. ASSESSMENT: 1. The patient was admitted as a person under investigation, questionable COVID-19 pneumonia versus superimposed bacterial pneumonia. 2. Urinary tract infection. The patient has a multitude of other medical problems including [place]oret[place]'s disease, chronic obstructive pulmonary disease, chronic diastolic congestive heart failure. PLAN: To continue with IV antibiotic in the form of ceftriaxone and Zithromax. Continue with steroids. Continue with all her antidiuretics and topiramate for migraine headache. We will follow her closely and decide on further management accordingly. UMESH HOLCOMB MD DR: RONALD/shayna JOB#: [id number] / [id number]
[2020-07-07 19:30] VITALS: BP 110/68
[2020-07-07] MEDS: LACTOBACILLUS RHAMNOSUS GG 1 CAPSULE. PO SCH (21:28)
[2020-07-07] MEDS: MIRTAZAPINE 30 MG TABLET PO SCH (21:29)
[2020-07-07] MEDS: traZODone 150 MG TABLET. PO SCH (21:29)
[2020-07-07 23:32] VITALS: BP 109/68
[2020-07-08] MEDS: oxyCODONE/APAP 10/325 1 TAB TABLET PO PRN ×4 (04:20→22:17)
[2020-07-08 05:18] VITALS: BP 101/67
[2020-07-08 06:32] LABS: HEMATOCRIT 32.5 % (36.0-47.0); HEMOGLOBIN 9.9 g/dL (12.0-15.5); RED BLOOD COUNT 3.02 x10^6/uL (3.50-5.40); RED CELL DISTRIBUTION WIDTH 16.3 % (11.5-14.5); WHITE BLOOD COUNT 12.2 x10^3/uL (4.0-11.0)
[2020-07-08 06:44] LABS: CALCIUM 8.7 mg/dL (8.5-10.1); CREATININE 1.4 mg/dL (0.6-1.0); GFR 40.7; POTASSIUM 3.3 mmol/L (3.5-5.1)
[2020-07-08] MEDS: SPIRONOLACTONE 25 MG TABLET PO SCH ×2 (08:37→22:19)
[2020-07-08] MEDS: LACTOBACILLUS RHAMNOSUS GG 1 CAPSULE. PO SCH ×2 (08:37→22:17)
[2020-07-08] MEDS: DULoxetine HCL 60 MG CAPSULE.DR PO SCH ×2 (08:37→22:17)
[2020-07-08] MEDS: guaiFENesin/PS-EPHED 600/60MG 1 TAB TAB.ER.12H PO SCH ×2 (08:37→22:19)
[2020-07-08] MEDS: HYDROCORTISONE 10 MG TABLET PO SCH ×2 (08:37→22:18)
[2020-07-08] MEDS: ASPIRIN 325 MG TABLET PO SCH ×2 (08:38→22:17)
[2020-07-08] MEDS: BACLOFEN 20 MG TABLET PO SCH ×3 (08:38→22:19)
[2020-07-08] MEDS: MULTIVITAMIN with MINERAL TABLET. PO SCH ×2 (08:38→22:19)
[2020-07-08] MEDS: ALPRAZolam 0.25 MG TABLET PO SCH ×2 (08:38→22:20)
[2020-07-08] MEDS: GABAPENTIN 300 MG CAPSULE. PO SCH ×3 (08:38→22:20)
[2020-07-08] MEDS: PHENAZOPYRIDINE 200 MG TABLET. PO SCH ×3 (08:38→22:17)
[2020-07-08] MEDS: AZITHROMYCIN 250 MG TABLET. PO SCH (08:39)
[2020-07-08] MEDS: PANTOPRAZOLE 40 MG TABLET. PO SCH ×2 (08:39→22:17)
[2020-07-08] MEDS: POTASSIUM CHLORIDE 20 MEQ TABLET.ER. PO SCH ×3 (08:39→22:20)
[2020-07-08] MEDS: TORSEMIDE 20 MG TABLET. PO SCH (08:39)
[2020-07-08] MEDS: TOPIRAMATE 25 MG TABLET. PO SCH ×2 (08:39→22:20)
[2020-07-08] MEDS: ASCORBIC ACID 500 MG TABLET PO SCH ×3 (08:39→22:17)
[2020-07-08] MEDS: MAGNESIUM OXIDE 400 MG TABLET PO SCH ×2 (08:39→22:17)
[2020-07-08] MEDS: CHOLECALCIFEROL (VITAMIN D3) 1,000 UNIT TABLET PO SCH ×3 (08:40→22:20)
[2020-07-08] MEDS: FLUDROCORTISONE 0.1 MG TABLET PO SCH ×2 (08:40→22:18)
[2020-07-08] MEDS: ONDANSETRON ODT 4 MG TAB.RAPDIS PO SCH ×3 (08:40→16:35)
[2020-07-08] MEDS: metOLazone 5 MG TABLET PO SCH (08:52)
[2020-07-08] MEDS: DEXAMETHASONE SOD PHOS 10 MG/ML VIAL. IV SCH (09:00)
[2020-07-08 10:40] VITALS: BP 97/63
[2020-07-08 12:01] VITALS: BP 111/73
[2020-07-08 14:13] VITALS: BP 101/66
[2020-07-08 19:41] VITALS: BP 115/68
[2020-07-08] MEDS: traZODone 150 MG TABLET. PO SCH (22:20)
[2020-07-08] MEDS: MIRTAZAPINE 30 MG TABLET PO SCH (22:20)
[2020-07-08 23:10] VITALS: BP 99/65
[2020-07-09] MEDS: oxyCODONE/APAP 10/325 1 TAB TABLET PO PRN ×2 (04:50→10:29)
[2020-07-09 05:15] VITALS: BP 101/66
--- NOTE | 2020-07-09 06:10 | NUR ---
Pt awake in bed at change of shift playing games on her phone. Pt A&Ox4, pleasant and cooperative with care and assessments. Pt c/o of BLE and left arm/elbow pain r/t to chronic wounds (sees [facility] wound clinic every Wednesday for debridement). Pt asked that we not take off her dressing unless its by a wound care nurse. [facility] Wound care is consulted but have not seen pt yet. Pt has LUE and BLE on pillows for pressure offloading. Pt took PRN pain medication every 6 hrs. Pt with chronic suprapubic catheter with orange urine r/t Pyridium, dressing changed. Pt slept on and off during night. Pt refused shower this AM. Labs drawn from chest port this AM.
[2020-07-09 06:40] LABS: CALCIUM 8.6 mg/dL (8.5-10.1); CREATININE 1.3 mg/dL (0.6-1.0); GFR 44.3; POTASSIUM 3.6 mmol/L (3.5-5.1)
[2020-07-09] MEDS: ONDANSETRON ODT 4 MG TAB.RAPDIS PO SCH ×2 (07:30→10:28)
[2020-07-09] MEDS: ALPRAZolam 0.25 MG TABLET PO SCH (08:19)
[2020-07-09] MEDS: HYDROCORTISONE 10 MG TABLET PO SCH (08:19)
[2020-07-09] MEDS: MULTIVITAMIN with MINERAL TABLET. PO SCH (08:19)
[2020-07-09] MEDS: GABAPENTIN 300 MG CAPSULE. PO SCH ×2 (08:19→14:33)
[2020-07-09] MEDS: ASPIRIN 325 MG TABLET PO SCH (08:19)
[2020-07-09] MEDS: LACTOBACILLUS RHAMNOSUS GG 1 CAPSULE. PO SCH (08:20)
[2020-07-09] MEDS: PHENAZOPYRIDINE 200 MG TABLET. PO SCH ×2 (08:20→14:33)
[2020-07-09] MEDS: TOPIRAMATE 25 MG TABLET. PO SCH (08:20)
[2020-07-09] MEDS: guaiFENesin/PS-EPHED 600/60MG 1 TAB TAB.ER.12H PO SCH (08:20)
[2020-07-09] MEDS: PANTOPRAZOLE 40 MG TABLET. PO SCH (08:20)
[2020-07-09] MEDS: FLUDROCORTISONE 0.1 MG TABLET PO SCH (08:20)
[2020-07-09] MEDS: AZITHROMYCIN 250 MG TABLET. PO SCH (08:20)
[2020-07-09] MEDS: ASCORBIC ACID 500 MG TABLET PO SCH ×2 (08:20→14:33)
[2020-07-09] MEDS: CHOLECALCIFEROL (VITAMIN D3) 1,000 UNIT TABLET PO SCH ×2 (08:20→14:33)
[2020-07-09] MEDS: DULoxetine HCL 60 MG CAPSULE.DR PO SCH (08:20)
[2020-07-09] MEDS: BACLOFEN 20 MG TABLET PO SCH ×2 (08:21→14:33)
[2020-07-09] MEDS: SPIRONOLACTONE 25 MG TABLET PO SCH (08:21)
[2020-07-09] MEDS: MAGNESIUM OXIDE 400 MG TABLET PO SCH (08:21)
[2020-07-09] MEDS: POTASSIUM CHLORIDE 20 MEQ TABLET.ER. PO SCH ×2 (08:21→14:34)
[2020-07-09] MEDS: DEXAMETHASONE SOD PHOS 10 MG/ML VIAL. IV SCH (08:22)
[2020-07-09 11:07] VITALS: BP 108/69
[2020-07-09] MEDS ORDERED: CEFD300C PO (13:56)
--- NOTE | 2020-07-09 14:06 | DISCH ---
HOME HEALTH DISCHARGE/MEDS DISCHARGE INFORMATION: Discharge Date: Jul 09, 2020 Final Diagnosis: Problems Medical Problems: (1) Person under investigation for COVID-19 Status: Acute (2) UTI (urinary tract infection) Status: Acute Condition on Discharge: Stable CODE STATUS: Code Status: Full HOME HEALTH: Face to Face: I certify this patient is under my care and that I, or a nurse practitioner or physician's junior assistant manager working with me, had a face to face encounter that meets the physician face to face encounter requirements with this patient on 07/09/2020 Medical Condition(s): Pneumonia Usp For: Admin/Educate Injections Physical Therapy For: Evalulation/Treatment Occupational Therapy For: Evaluation/Treatment Homebound Status Met By: Extreme weakness w/ amb. POST DISCHARGE ORDERS: Activity Instructions for Disc: Activity as tolerated DIET AFTER DISCHARGE: Cardiac CERTIFICATION STATEMENT: Certification Statement: Based on the above finding, I certify that this patient is confined to the home and needs intermittent mcc care, physical therapy and/or speech therapy, or continues to need occupational therapy.~ This patient is under my care, and I have initiated the establishment of the plan of care.~ This patient will be followed by myself or a community physician who will periodically review the plan of care. DISCHARGE MEDICATIONS: Home Meds Active Scripts Cefdinir (CEFDINIR) 300 Mg Capsule, 1 CAP PO BID for cap for 7 Days, #14 CAP Prov:UMESH HOLCOMB MD 07/09/20 Reported Medications Cholecalciferol (Vitamin D3) (Vitamin D3) 50 Mcg Capsule, 50 MCG PO TID for supplement, CAP 07/06/20 Pantoprazole Sodium (PROTONIX) 40 Mg Tablet.dr, 40 MG PO BID for DYSPEPSIA, TAB 07/06/20 Ondansetron (ONDANSETRON ODT) 4 Mg Tab.rapdis, 4 MG PO TIDBFRMEAL for NAUSEA, TAB 07/06/20 Guaifenesin/Pseudoephedrne Hcl (MUCINEX D ER 600-60 MG TABLET) 1 Each Tab.er.12h, 1 TAB PO BID for COPD for 10 Days, #20 TAB 0 Refills 07/06/20 Trazodone Hcl (TRAZODONE HCL) 150 Mg Tablet, 150 MG PO QHS for INSOMNIA, TAB 07/06/20 Metolazone (METOLAZONE) 5 Mg Tablet, 5 MG PO DAILY for DIURETIC, TAB 07/06/20 Magnesium Oxide (Magnesium) 400 Mg Tablet, 400 MG PO BID for SUPPLEMENT, TAB 07/06/20 Phenazopyridine Hcl (PYRIDIUM) 200 Mg Tablet, 200 MG PO QID for UTI, TAB 07/06/20 Oxycodone Hcl/Acetaminophen (PERCOCET 10-325 MG TABLET ) 1 Each Tablet, 1 TAB PO PRN QID PRN for PAIN MDD 4 Tablet(s) for 5 Days, #20 TAB 0 Refills 07/06/20 Acetaminophen (TYLENOL) 325 Mg Tablet, 325 MG PO PRN QID PRN for PAIN, TAB 07/06/20 Spironolactone (SPIRONOLACTONE) 25 Mg Tablet, 1 TAB PO BID for ., #90 TAB 1 Refill 04/03/20 Baclofen (BACLOFEN) 20 Mg Tablet, 1 TAB PO TID for ., #90 TAB 2 Refills 04/03/20 Hydrocortisone (HYDROCORTISONE) 5 Mg Tablet, 20 MG PO BID for GERARDO'S DISEASE LAST DOSE GIVEN: DATE: TODAY TIME: AM NEXT DOSE DUE: DATE: TODAY TIME: PM 03/14/20 Ascorbic Acid (VITAMIN C) 100 Mg Tablet, 1000 MG PO TID for SUPPLEMENT LAST DOSE GIVEN: DATE: TODAY TIME: AFTERNOON NEXT DOSE DUE: DATE: TODAY TIME: PM 02/15/20 Melatonin (MELATONIN) 10 Mg Tab.mphase, 2 TAB PO QHS for SLEEP AID LAST DOSE GIVEN: DATE: YESTERDAY TIME: AT BEDTIME NEXT DOSE DUE: DATE: TODAY TIME: AT BEDTIME 02/15/20 Fludrocortisone Acetate (FLUDROCORTISONE ACETATE) 0.1 Mg Tablet, 3 TAB PO BID for GERARDO'S DISEASE LAST DOSE GIVEN: DATE: TODAY TIME: AM NEXT DOSE DUE: DATE: TODAY TIME: PM 02/15/20 Omeprazole (OMEPRAZOLE) 20 Mg Capsule.dr, 1 CAP PO HS for HEARTBURN LAST DOSE GIVEN: DATE: YESTERDAY TIME: AT BEDTIME NEXT DOSE DUE: DATE: TODAY TIME: AT BEDTIME 02/15/20 Topiramate (TOPAMAX) 50 Mg Tablet, 1 TAB PO BID for PREVENT MIGRAINES LAST DOSE GIVEN: DATE: TODAY TIME: AM NEXT DOSE DUE: DATE: TODAY TIME: PM 02/15/20 Gabapentin (GABAPENTIN ) 300 Mg Capsule, 300 MG PO TID for NERVE PAIN LAST DOSE GIVEN: DATE: TODAY TIME: AFTERNOON NEXT DOSE DUE: DATE: TODAY TIME: PM 02/15/20 Fluticasone Propionate (FLUTICASONE PROPIONATE NASAL SPRAY) 16 Gm [place].susp, 16 GM NS PRN DAILY PRN for NASAL CONGESTION NOT GIVEN TODAY NEXT DOSE DUE: DATE: TIME: IF AND WHEN NEEDED 02/15/20 Potassium Chloride (POTASSIUM CHLORIDE ) 20 Meq Tablet.er, 3 TAB PO TID for SUPPLEMENT LAST DOSE GIVEN: DATE: TIME: AFTERNOON NEXT DOSE DUE: DATE: TODAY TIME: PM 12/18/19 Alprazolam (ALPRAZOLAM) 0.25 Mg Tablet, 0.25 MG PO BID for ANXIETY LAST DOSE GIVEN: DATE: TIME: AM NEXT DOSE DUE: DATE: TODAY TIME: PM 05/30/19 Torsemide (TORSEMIDE) 20 Mg Tablet, 1 TAB PO TID for FLUID RETENTION LAST DOSE GIVEN: DATE: TIME: AFTERNOON NEXT DOSE DUE: DATE: TIME: PM 05/30/19 Aspirin (ASPIRIN) 325 Mg Tablet, 325 MG PO BID for HEART HEALTH LAST DOSE GIVEN: DATE: TIME: AM NEXT DOSE DUE: DATE: TIME: PM 01/20/19 Mirtazapine (MIRTAZAPINE) 30 Mg Tablet, 1 TAB PO QHS for MOOD DISORDER LAST DOSE GIVEN: DATE: YESTERDAY TIME: AT BEDTIME NEXT DOSE DUE: DATE: TIME: AT BEDTIME 10/10/18 Duloxetine Hcl (CYMBALTA) 60 Mg Capsule.dr, 1 CAP PO BID for DEPRESSION LAST DOSE GIVEN: DATE: TIME: AM NEXT DOSE DUE: DATE: TODAY TIME: PM 10/10/18 Multivitamin (MULTIVITAMINS) 1 Each Tablet, 1 TAB PO BID for SUPPLEMENT LAST DOSE GIVEN: DATE: TIME: AM NEXT DOSE DUE: DATE: TODAY TIME: PM 10/10/18 Discontinued Reported Medications Oxycodone Hcl (OXYCODONE HCL IMMED.RELEASE ) 5 Mg Tablet, 10 MG PO PRN Q8HRS PRN for PAIN LAST DOSE GIVEN: DATE: TIME: 8 AM NEXT DOSE DUE: DATE: TODAY TIME: AFTER 4 PM IF NEEDED 02/15/20 Acetaminophen (TYLENOL EXTRA STRENGTH) 500 Mg Tablet, 1000 MG PO Q8HRS PRN for PAIN OR FEVER NOT GIVEN TODAY NEXT DOSE DUE: DATE: TODAY TIME: IF AND WHEN NEEDED 02/15/20 UMESH HOLCOMB MD Jul 09, 2020 14:06
[2020-07-09] MEDS ORDERED: AZIT250T PO (14:07)
--- NOTE | 2020-07-09 15:14 | DS ---
DATE OF DISCHARGE: HOSPITAL COURSE: The patient is a 44-year-old female patient who presented to the Emergency Room with a complaint of cough, fever, fatigue, shortness of breath for the last 2 days. The patient states that she is normally on 4 liters at home, but they had increased her oxygen to 5 liters because her oxygen was staying below 90. Her highest temperature at home was 100.9, has been taking Tylenol at home for fever. The patient stated that her [id number] was diagnosed with COVID-19 two weeks ago and her has been visiting her. She states that she would like to be admitted and she was admitted. Her initial lab work showed that she has elevated D-dimer and CT angio of the chest showed no evidence of DVT of the pulmonary emboli; however, it did show that she has mild questionable superimposed patchy consolidation in the left lung base. The patient was initially admitted as a person under investigation and kept under droplet precaution, was treated with IV antibiotic in the form of ceftriaxone and Zithromax together with dexamethasone. Eventually, her coronavirus by PCR was detectable. She did very well. She remained afebrile, hemodynamically stable. She has no further cough, shortness of breath and a decision was made to discharge her home with home health to continue on oral antibiotic for community-acquired pneumonia. PHYSICAL EXAMINATION: GENERAL: When I examined her, she looked well and was clearly in no apparent respiratory distress. No pallor, jaundice, cyanosis or thyromegaly. No jugular venous distention. No limb edema. VITAL SIGNS: Her heart rate was 91, blood pressure was 108/69, temperature was 98.6, respiratory rate 20, and oxygen saturation was 93% on 5 liters of oxygen. HEAD, EYES, EARS, NOSE AND THROAT: Normocephalic, atraumatic. NECK: Supple. HEART: Showed normal first and second heart sounds. No gallop or murmur. CHEST: Clear to auscultation. No crepitation or rhonchi. ABDOMEN: Distended, soft, nontender with suprapubic catheter in place. NEUROLOGIC: She is awake, alert, responding appropriately. All cranial nerves intact. She moves extremities without difficulty. Her intake over the last 24 hours was 1870, output was 5125. LABORATORY DATA: Her white cell count was 12,200, hemoglobin 10, hematocrit 33, MCV 108 and platelet count of 188,000. Her chemistry showed a serum sodium 140, potassium 3.6, chloride 101, bicarbonate 31, anion gap of 8, BUN 23, creatinine 1.3, estimated GFR was 44 mL per minute. Her glucose was 90, calcium was 8.6. Urinalysis was unremarkable and urine culture showed growth of 20,000 colony-forming units per mL of normal genitourinary infection, not indicative of infection. Her blood cultures showed no growth after 2 days. DISCHARGE MEDICATIONS: The patient was discharged home to continue on cefdinir 300 mg twice a day for 7 days as well as Zithromax 250 mg once a day for 2 more days. Continue with acetaminophen 650 mg 4 times a day, alprazolam 0.25 mg twice a day, ascorbic acid 1000 mg 3 times a day, aspirin 325 mg twice a day, baclofen 20 mg 3 times a day, cholecalciferol, vitamin D 50 mcg 3 times a day. She is on Dulcolax, Cymbalta 60 mg twice a day, fludrocortisone acetate 300 mcg twice a day, Flonase 2 sprays to each nostril once a day, gabapentin 300 mg 3 times a day, guaifenesin/pseudoephedrine 1 tablet twice a day, hydrocortisone 20 mg twice a day, magnesium oxide 400 mg twice a day, melatonin 20 mg at bedtime, metolazone 5 mg daily, mirtazapine 30 mg at bedtime, multivitamin 1 tablet once a day, omeprazole 2 mg once a day, ondansetron ODT 4 mg 3 times a day, oxycodone/APAP 10/325 one tablet 4 times a day, Protonix 40 mg twice a day, phenazopyridine 200 mg 4 times a day, potassium chloride 60 mEq 3 times a day, spironolactone 25 mg twice a day, topiramate 50 mg twice a day, torsemide 20 mg 3 times a day and trazodone 150 mg at bedtime. FINAL DISCHARGE DIAGNOSES: 1. COVID-19 was undetectable. 2. Community-acquired pneumonia. 3. [place]'s disease. 4. Chronic obstructive pulmonary disease. 5. Chronic diastolic congestive heart failure. UMESH HOLCOMB MD DR: RONALD/shayna JOB#: [id number] / [id number]
[2020-07-09 15:37] VITALS: BP 113/72
--- NOTE | 2020-07-09 16:47 | NUR ---
DISCHARGE NOTE-PORT DEACCESSED ET TELEMETRY DISCONTINUED. DISCHARGE PAPERWORK REVIEWED WITH PATIENT ET WRITTEN SCRIPTS SENT WITH HER. DISCHARGED TO HOME VIA WHEELCHAIR, HERE TO PICK HER UP.
== END 2020-07-09 16:49 | disposition home health service (06) | DRG 871 ==
LOC: ER 12:29 → 1 SOUTH 16:10
PROVIDERS: ADMIT Internal Medicine; ATTEND Internal Medicine
DX: A41.9 Sepsis, unspecified organism (principal); J18.9 Pneumonia, unspecified organism; J44.0 Chronic obstructive pulmonary disease with (acute) lower respiratory infection; N39.0 Urinary tract infection, site not specified; E27.1 Primary adrenocortical insufficiency; I13.0 Hypertensive heart and chronic kidney disease with heart failure and stage 1 through stage 4 chronic kidney disease, or unspecified chronic kidney disease; I50.32 Chronic diastolic (congestive) heart failure; I69.354 Hemiplegia and hemiparesis following cerebral infarction affecting left non-dominant side; Z20.822 Contact with and (suspected) exposure to COVID-19; E87.6 Hypokalemia; F17.210 Nicotine dependence, cigarettes, uncomplicated; F32.9 Major depressive disorder, single episode, unspecified; F41.9 Anxiety disorder, unspecified; N18.9 Chronic kidney disease, unspecified; Z82.49 Family history of ischemic heart disease and other diseases of the circulatory system; Z83.3 Family history of diabetes mellitus; Z86.14 Personal history of Methicillin resistant Staphylococcus aureus infection; Z86.19 Personal history of other infectious and parasitic diseases; Z86.711 Personal history of pulmonary embolism; Z87.442 Personal history of urinary calculi; Z90.710 Acquired absence of both cervix and uterus; Z93.1 Gastrostomy status; Z90.49 Acquired absence of other specified parts of digestive tract; Z91.013 Allergy to seafood; Z88.2 Allergy status to sulfonamides; Z91.018 Allergy to other foods
CPT/HCPCS: 36415; 71045; 71275; 80048; 80053; 81001; 82550; 83605; 83615; 83735; 84484; 85025; 85027; 85379; 86140; 87040; 87086; 93005; 96365; 96368; 96375; J0456; J0696; J1100; J7050; Q0162; Q9967; U0003; 99285-25

== ENCOUNTER 2020-09-15 13:03 | Inpatient (IN) | payer OTHER, MEDICAID ==
[~2020-09-15] VITALS: Ht 152.4 cm; Wt 92.0 kg
[~2020-09-15 13:03] MED LIST changes: +ACET325T9 PO; +AZIT250T PO; +CHOL20009 PO; +GUAI-112 PO; +MAGN400T30 PO; +OXYC1TAB22 PO; +PANT40TA3 PO; +TRAZ150T49 PO
[2020-09-15] MEDS ORDERED: IV NORMAL SALINE 1,000ML 1,000 ML IV ONE ×3 (13:30→16:45)
[2020-09-15] MEDS ORDERED: 0.9 % SODIUM CHLORIDE 10 ML DISP.SYRIN. IV PRN (13:30)
[2020-09-15 14:18] LABS: BASO # 0.2 x10^3/uL (0.0-0.2); BASO % 1 % (0-3); EOS # 0.2 x10^3/uL (0.0-0.7); EOS % 1 % (0-3); HEMATOCRIT 29.8 % (36.0-47.0); HEMOGLOBIN 9.2 g/dL (12.0-15.5); LYMPH # 1.1 x10^3/uL (1.0-4.8); LYMPH % 7 % (24-48); MEAN CORPUSCULAR HEMOGLOBIN 32 pg (25-35); MEAN CORPUSCULAR HGB CONC 31 g/dL (31-37); MEAN CORPUSCULAR VOLUME 103 fL (79-100); MONO # 0.6 x10^3/uL (0.0-1.1); MONO % 3 % (0-9); NEUT # 14.9 x10^3uL (1.8-7.7); NEUT % 88 % (31-73); PLATELET COUNT 224 x10^3/uL (140-400); RED BLOOD COUNT 2.89 x10^6/uL (3.50-5.40); RED CELL DISTRIBUTION WIDTH 17.6 % (11.5-14.5); WHITE BLOOD COUNT 16.9 x10^3/uL (4.0-11.0)
[2020-09-15 14:27] LABS: CALCIUM 8.6 mg/dL (8.5-10.1); CREATININE 2.3 mg/dL (0.6-1.0); GFR 22.9; POTASSIUM 3.9 mmol/L (3.5-5.1)
[2020-09-15 14:35] LABS: ALBUMIN 3.3 g/dL (3.4-5.0); ALBUMIN/GLOBULIN RATIO 1.1 (1.0-1.7); TOTAL BILIRUBIN 0.4 mg/dL (0.2-1.0); TOTAL PROTEIN 6.3 g/dL (6.4-8.2)
--- NOTE | 2020-09-15 15:32 | RAD ---
Study: CT abdomen/pelvis without intravenous contrast Indication: Subjective fever. Open leg wounds. Comparison: Most recent CT abdomen/pelvis 10/10/2018 Technique: Helical CT imaging performed of the abdomen and pelvis without the use of intravenous cont rast. Sagittal and coronal reformats were obtained. One or more of the following individualized dose reduction techniques were utilized for this examinat ion: 1. Automated exposure control 2. Adjustment of the mA and/or kV according to patient size 3. Use of iterative reconstruction technique. Findings: Inherently limited evaluation without intravenous contrast. Unchanged visualized mediastinal contents. Left more so than right basilar atelectasis. No newly developed focal hepatic parenchymal abnormality. Surgically absent gallbladder. Nondilated b iliary tree. No peripancreatic inflammation. No adrenal gland mass. Unchanged size of the spleen. No nephrolithiasis or hydronephrosis. Renal morphology is within normal limits. Small amount of gas with in the left ureter is most likely iatrogenic given a suprapubic catheter. The urinary bladder is most ly collapsed around the catheter balloon. Absent uterus. Left ovarian cyst identified on the 2019 comparison has resolved. No concerning adnexa l abnormality on the right with only a small cystic area as seen on image 123 series 2. Moderate degree of constipation. Redemonstration of partial herniation of proximal transverse colon t hrough a right lower quadrant right paramidline defect, image 85 series 2, no CT manifestations of in carceration. Status post gastric bypass. No findings of bowel obstruction or anastomotic dehiscence. Minimal aortic calcific atherosclerosis. No aneurysmal dilatation. No lymphadenopathy by size criteri a. Ventral midline surgical changes without a complicated or large recurrent hernia. No acute or aggressive osseous process. Chronic L5 pars defects. No change in vertebral body height o r alignment. Impression: 1. No acute abnormality seen throughout the abdomen or pelvis. 2. Moderate degree of constipation. 3. Additional chronic/unchanged observations as detailed in the body the report Electronically signed by: MAURICIO DURAN MD (09/15/2020 3:29 PM) [id number]
--- NOTE | 2020-09-15 15:39 | PHYS DOC ---
Past History Past Medical History: Asthma, CHF, COPD, Hypotension, MRSA, Stroke Additional Past Medical Histor: stroke, gastroparesis, spinal stenosis, anni disease, stroke (right side Past Surgical History: Cholecystectomy, Hysterectomy Additional Past Surgical Histo: suprapubic catheter Smoking: Cigarettes Additional Smoking Information: 1/2 PACK/DAY Alcohol Use: None Drug Use: None General Adult EDM: Chief Complaint: CELLULITIS HPI: HPI: 44-year-old female presents to the ED with complaints of worsening leg swelling and warmth, history of left lower extremity cellulitis in 2008. Was seen by wound care on Wednesday and is currently on cefdinir and Flagyl for UTI. Review of Systems: Review of Systems: Constitutional: Denies syncope or lethargy Eyes: Denies change in visual acuity HENT: Denies nasal congestion or sore throat Respiratory: Denies cough or shortness of breath Cardiovascular: Denies chest pain or edema GI: Denies abdominal pain, nausea, vomiting, bloody stools or diarrhea : Denies urinary bowel retention or incontinence or saddle anesthesia Musculoskeletal: Denies back pain or joint pain Integument: Denies desquamation or diaphoresis Neurologic: Denies headache, neck pain, focal weakness or sensory changes Endocrine: Denies polyuria or polydipsia Lymphatic: Denies swollen glands Psychiatric: Denies depression or anxiety Current Medications: Current Meds: Current Medications Medications (Trade) Dose Ordered Sig/Mani Start Time Stop Time Status Last Admin Dose Admin Sodium Chloride 1,000 ml @ 1,000 mls/hr 1X ONCE 09/15/20 13:30 09/15/20 14:29 DC 09/15/20 15:21 1,000 MLS/HR Sodium Chloride (Normal Saline Flush) 10 ml QSHIFT PRN 09/15/20 13:30 Allergies: Allergies: Allergies Coded Allergies Type Severity Reaction Last Updated Verified Sulfa (Sulfonamide Antibiotics) Allergy Intermediate 02/15/20 Yes citric acid Allergy Intermediate 02/15/20 Yes honey Allergy Intermediate 02/16/20 Yes shellfish derived Allergy Intermediate 02/15/20 Yes Physical Exam: PE: Constitutional: Obese, Unkept appearance, low map HENT: Normocephalic, atraumatic, Eyes: EOMI, conjunctiva normal, no discharge. Neck: Normal range of motion, supple, Cardiovascular: S1/2 present, regular rhythm Lungs & Thorax: Speaking in full sentences, bilateral equal chest rise, no tachypnea or increased work of breathing Abdomen: soft, no tenderness, Skin: Warm, dry, Back: No midline tenderness, no CVA tenderness. [] Extremities: No tenderness, no cyanosis, chronic appearing weeping, lower extremity wounds with no appreciable erythema/rash/cellulitis, with vascular disease Neurologic: Alert and oriented X 3, normal motor function, normal sensory function, no focal deficits noted. [] Psychologic: Affect normal, judgement normal, mood normal. [] Current Patient Data: Labs: Laboratory Tests Test 09/15/20 13:50 White Blood Count 16.9 x10^3/uL (4.0-11.0) H Red Blood Count 2.89 x10^6/uL (3.50-5.40) L Hemoglobin 9.2 g/dL (12.0-15.5) L Hematocrit 29.8 % (36.0-47.0) L Mean Corpuscular Volume 103 fL (79-100) H Mean Corpuscular Hemoglobin 32 pg (25-35) Mean Corpuscular Hemoglobin Concent 31 g/dL (31-37) Red Cell Distribution Width 17.6 % (11.5-14.5) H Platelet Count 224 x10^3/uL (140-400) Neutrophils (%) (Auto) 88 % (31-73) H Lymphocytes (%) (Auto) 7 % (24-48) L Monocytes (%) (Auto) 3 % (0-9) Eosinophils (%) (Auto) 1 % (0-3) Basophils (%) (Auto) 1 % (0-3) Neutrophils # (Auto) 14.9 x10^3uL (1.8-7.7) H Lymphocytes # (Auto) 1.1 x10^3/uL (1.0-4.8) Monocytes # (Auto) 0.6 x10^3/uL (0.0-1.1) Eosinophils # (Auto) 0.2 x10^3/uL (0.0-0.7) Basophils # (Auto) 0.2 x10^3/uL (0.0-0.2) Platelet Estimate Pending Prothrombin Time 10.2 SEC (9.4-11.4) Prothrombin Time INR 1.0 (0.9-1.1) Activated Partial Thromboplast Time 27 SEC (23-33) Sodium Level 144 mmol/L (136-145) Potassium Level 3.9 mmol/L (3.5-5.1) Chloride Level 106 mmol/L (98-107) Carbon Dioxide Level 29 mmol/L (21-32) Anion Gap 9 (6-14) Blood Urea Nitrogen 37 mg/dL (7-20) H Creatinine 2.3 mg/dL (0.6-1.0) H Estimated GFR (Cockcroft-Gault) 22.9 BUN/Creatinine Ratio 16 (6-20) Glucose Level 102 mg/dL (70-99) H Lactic Acid Level 0.6 mmol/L (0.4-2.0) Calcium Level 8.6 mg/dL (8.5-10.1) Total Bilirubin 0.4 mg/dL (0.2-1.0) Aspartate Amino Transferase (AST) 20 U/L (15-37) Alanine Aminotransferase (ALT) 25 U/L (14-59) Alkaline Phosphatase 77 U/L (46-116) Creatine Kinase 53 U/L (26-192) Total Protein 6.3 g/dL (6.4-8.2) L Albumin 3.3 g/dL (3.4-5.0) L Albumin/Globulin Ratio 1.1 (1.0-1.7) Vital Signs: Vital Signs Date Time Temp Pulse Resp B/P (MAP) Pulse Ox O2 Delivery O2 Flow Rate FiO2 09/15/20 15:19 69 20 93/51 (65) 91 Nasal Cannula 5.0 09/15/20 13:15 98.9 EKG: EKG: [] Radiology/Procedures: Radiology/Procedures: IMAGING REPORT Signed PATIENT: ROSANGELA FLORENCE ACCOUNT: [id number] : 1975 LOCATION: ER AGE: 44 SEX: F EXAM STATUS: REG ER ORD. PHYSICIAN: NOELLE ACHARYA DO REASON: subjective fever, open leg wounds PROCEDURE: CT ABDOMEN PELVIS WO CONTRAST Study: CT abdomen/pelvis without intravenous contrast Indication: Subjective fever. Open leg wounds. Comparison: Most recent CT abdomen/pelvis 10/10/2018 Technique: Helical CT imaging performed of the abdomen and pelvis without the use of intravenous contrast. Sagittal and coronal reformats were obtained. One or more of the following individualized dose reduction techniques were utilized for this examination: 1. Automated exposure control 2. Adjustment of the mA and/or kV according to patient size 3. Use of iterative reconstruction technique. Findings: Inherently limited evaluation without intravenous contrast. Unchanged visualized mediastinal contents. Left more so than right basilar atelectasis. No newly developed focal hepatic parenchymal abnormality. Surgically absent gallbladder. Nondilated biliary tree. No peripancreatic inflammation. No adrenal gland mass. Unchanged size of the spleen. No nephrolithiasis or hydronephrosis. Renal morphology is within normal limits. Small amount of gas within the left ureter is most likely iatrogenic given a suprapubic catheter. The urinary bladder is mostly collapsed around the catheter balloon. Absent uterus. Left ovarian cyst identified on the 2019 comparison has resolved. No concerning adnexal abnormality on the right with only a small cystic area as seen on image 123 series 2. Moderate degree of constipation. Redemonstration of partial herniation of proximal transverse colon through a right lower quadrant right paramidline defect, image 85 series 2, no CT manifestations of incarceration. Status post gastric bypass. No findings of bowel obstruction or anastomotic dehiscence. Minimal aortic calcific atherosclerosis. No aneurysmal dilatation. No lymphadenopathy by size criteria. Ventral midline surgical changes without a complicated or large recurrent hernia. No acute or aggressive osseous process. Chronic L5 pars defects. No change in vertebral body height or alignment. Impression: 1. No acute abnormality seen throughout the abdomen or pelvis. 2. Moderate degree of constipation. 3. Additional chronic/unchanged observations as detailed in the body the report Electronically signed by: MAURICIO DURAN MD (09/15/2020 3:29 PM) [id number] DICTATED AND SIGNED BY: MAURICIO DURAN MD DATE: 09/15/20 1520 CC: GABRIEL DO MD; NOELLE ACHARYA DO ~MTH0 0 IMAGING REPORT Signed PATIENT: ROSANGELA FLORENCE ACCOUNT: [id number] : 1975 LOCATION: ER AGE: 44 SEX: F EXAM STATUS: REG ER ORD. PHYSICIAN: NOELLE ACHARYA DO REASON: sirs PROCEDURE: CHEST AP ONLY EXAMINATION: XR CHEST 1V CLINICAL HISTORY: SIRS EXAM DATE/TIME: 09/15/2020 3:40 PM COMPARISON: 07/06/2020 FINDINGS: Lines, Tubes, and Devices: Right internal jugular Port-A-Cath remains in similar position. Cardiomediastinal Silhouette: Normal heart size. Aortic atherosclerotic calcification. Lungs and Pleura: Ill-defined patchy left basilar opacities. Minimal curvilinear right basilar subsegmental atelectasis and/or scarring. No evidence of pleural effusion. Bones and Soft Tissues: Healing left rib fracture deformities. IMPRESSION: Left basilar airspace disease suspicious for infectious process. Electronically signed by: Anders Ross DO (09/15/2020 3:53 PM) [facility] DICTATED AND SIGNED BY: ANDERS ROSS DO DATE: 09/15/20 1550 CC: GABRIEL DO MD; NOELLE ACHARYA DO ~MTH0 0 Heart Score: C/O Chest Pain: No Risk Factors: Risk Factors: DM, Current or recent (<one month) smoker, HTN, HLP, family history of CAD, obesity. Risk Scores: Score 0 - 3: 2.5% MACE over next 6 weeks - Discharge Home Score 4 - 6: 20.3% MACE over next 6 weeks - Admit for Clinical Observation Score 7 - 10: 72.7% MACE over next 6 weeks - Early Invasive Strategies Course & Med Decision Making: Course & Med Decision Making Pertinent Labs and Imaging studies reviewed. (See chart for details) Concern for sepsis secondary to UTI. I reviewed patient's urine cultures at [facility] and [facility]. Most concerning was 02/2019 with E. coli resistant to all cephalosporins except 4th generation, also sensitive to Ciprofloxin, levofloxacin, Bactrim and tetracycline. MAP around 65 after 2L NS bolus (she's normally higher than this) -will repeat 1L bolus, start cefepime and admit. LA improved with IVFs. Also with acute on CKD, appears to be pre- renal. I have spoken with the patient and/or caregivers. I have explained the galo ent's condition, diagnosis and treatment plan based on the information available to me at this time. I have answered the patient's and/or caregivers questions and answered any concerns. The patient and/or caregivers have as good an understanding of the patient's diagnosis, condition and treatment plan as can be expected at this point. The patient has been stabilized within the capability of the emergency department. The patient will be transported for further care and management or will be moved to an observation or inpatient service. I have communicated with the staff or medical practitioner taking over this patient's care. Dragon Disclaimer: Dragon Disclaimer: This electronic medical record was generated, in whole or in part, using a voice recognition dictation system. Departure Departure: Impression: Primary Impression: Sepsis Additional Impressions: [id number] kidney injury Macrocytic anemia UTI (urinary tract infection) Hypotension Disposition: ADMITTED INPT THIS HOSP Admitting Physician: Lenin Simon Condition: GUARDED Referrals: GABRIEL DO MD (PCP) NOELLE ACHARYA DO Sep 15, 2020 15:39
[2020-09-15 15:45] LABS: % BANDS 2 % (0-9); % LYMPHS 7 % (24-48); % MONOS 8 % (0-10); % SEGS 83 % (35-66); PLT ESTIMATE ADEQUATE (ADEQUATE)
--- NOTE | 2020-09-15 15:55 | RAD ---
EXAMINATION: XR CHEST 1V CLINICAL HISTORY: SIRS EXAM DATE/TIME: 09/15/2020 3:40 PM COMPARISON: 07/06/2020 FINDINGS: Lines, Tubes, and Devices: Right internal jugular Port-A-Cath remains in similar position. Cardiomediastinal Silhouette: Normal heart size. Aortic atherosclerotic calcification. Lungs and Pleura: Ill-defined patchy left basilar opacities. Minimal curvilinear right basilar subseg mental atelectasis and/or scarring. No evidence of pleural effusion. Bones and Soft Tissues: Healing left rib fracture deformities. IMPRESSION: Left basilar airspace disease suspicious for infectious process. Electronically signed by: Anders Franks DO (09/15/2020 3:53 PM) JUAN
[2020-09-15 16:23] LABS: CLARITY,URINE CLOUDY; COLOR,URINE ORANGE
[2020-09-15 16:24] LABS: BACTERIA,URINE MOD /HPF (0-FEW); HYALINE CASTS, URINE FEW /HPF; WBC,URINE 20-40 /HPF (0-4); YEAST,URINE PRESENT /HPF
[2020-09-15] MEDS ORDERED: CEFEPIME HCL 2 GM in IV NORMAL SALINE 100ML 100 ML IV ONE (17:00)
[2020-09-15] MEDS ORDERED: IV NORMAL SALINE 100ML 100 ML ONE (17:04)
[2020-09-15] MEDS ORDERED: CEFEPIME HCL 2 GM VIAL IV ONE (17:04)
[2020-09-15] MEDS ORDERED: HYDROCORTISONE 10 MG TABLET PO SCH (18:00)
[2020-09-15] MEDS ORDERED: oxyCODONE IR 5 MG TABLET PO PRN (18:00)
[2020-09-15 18:55] VITALS: BP 101/62
[2020-09-15] MEDS ORDERED: FLUTICASONE 50MCG/NASAL SPRAY 16GM BOTTLE. NS PRN (20:00)
[2020-09-15] MEDS ORDERED: FLUDROCORTISONE 0.1 MG TABLET PO SCH (21:00)
[2020-09-15] MEDS ORDERED: POTASSIUM CHLORIDE 20 MEQ TABLET.ER. PO SCH (21:00)
[2020-09-15] MEDS: guaiFENesin/PS-EPHED 600/60MG 1 TAB TAB.ER.12H PO SCH (21:00)
[2020-09-15] MEDS ORDERED: NON FORMULARY ITEM (Melatonin 2 TAB) PO SCH (21:00)
[2020-09-15] MEDS ORDERED: HYDROCORTISONE 10 MG TABLET PO ONE (21:15)
[2020-09-15] MEDS: MIRTAZAPINE 30 MG TABLET PO SCH (21:42)
[2020-09-15] MEDS: DULoxetine HCL 60 MG CAPSULE.DR PO SCH (21:43)
[2020-09-15] MEDS: GABAPENTIN 300 MG CAPSULE. PO SCH (21:43)
[2020-09-15] MEDS: BACLOFEN 20 MG TABLET PO SCH (21:43)
[2020-09-15] MEDS: ALPRAZolam 0.25 MG TABLET PO SCH (21:43)
[2020-09-15] MEDS: PANTOPRAZOLE 40 MG TABLET. PO SCH (21:43)
[2020-09-15] MEDS: TOPIRAMATE 25 MG TABLET. PO SCH (21:44)
[2020-09-15] MEDS: IV NORMAL SALINE 1,000ML 1,000 ML IV SCH (22:15)
[2020-09-15] MEDS ORDERED: POTASSIUM CHLORIDE 20 MEQ TABLET.ER. PO ONE (22:30)
[2020-09-15] MEDS: CHOLECALCIFEROL (VITAMIN D3) 1,000 UNIT TABLET PO SCH (22:54)
[2020-09-15] MEDS: SPIRONOLACTONE 25 MG TABLET PO SCH (22:55)
[2020-09-15] MEDS: traZODone 150 MG TABLET. PO SCH (22:55)
[2020-09-15] MEDS: ASPIRIN 325 MG TABLET PO SCH (22:55)
[2020-09-15] MEDS: PHENAZOPYRIDINE 200 MG TABLET. PO SCH (22:55)
[2020-09-15] MEDS: TORSEMIDE 20 MG TABLET. PO SCH (22:55)
[2020-09-15] MEDS: MAGNESIUM OXIDE 400 MG TABLET PO SCH (22:57)
[2020-09-15 23:11] VITALS: BP 91/58
--- NOTE | 2020-09-15 23:54 | NUR ---
The patient, ROSANGELA FLORENCE, 44 y/o, F admitted by UMESH HOLCOMB MD, was given written information regarding hospital policies, unit procedures and contact persons. Health history and home medications were reviewed with patient. Bed locked and in lowest position, call light within reach, traffic monitor specialist applied. Valuables were checked and left in room.
[2020-09-16] MEDS: oxyCODONE/APAP 10/325 1 TAB TABLET PO PRN ×4 (03:55→20:15)
[2020-09-16 05:00] VITALS: BP 94/58
[2020-09-16] MEDS: ONDANSETRON ODT 4 MG TAB.RAPDIS PO SCH ×3 (08:08→16:27)
[2020-09-16] MEDS: IV NORMAL SALINE 1,000ML 1,000 ML IV SCH ×2 (08:10→13:00)
[2020-09-16] MEDS: MAGNESIUM OXIDE 400 MG TABLET PO SCH (09:00)
[2020-09-16] MEDS: ASCORBIC ACID 1,000 MG TABLET PO SCH ×3 (09:00→21:52)
[2020-09-16] MEDS: ALPRAZolam 0.25 MG TABLET PO SCH ×2 (10:15→21:51)
[2020-09-16] MEDS: DULoxetine HCL 60 MG CAPSULE.DR PO SCH ×2 (10:16→21:53)
[2020-09-16] MEDS: CHOLECALCIFEROL (VITAMIN D3) 1,000 UNIT TABLET PO SCH ×3 (10:16→21:51)
[2020-09-16] MEDS: POTASSIUM CHLORIDE 20 MEQ TABLET.ER. PO SCH ×3 (10:16→21:51)
[2020-09-16] MEDS: metOLazone 5 MG TABLET PO SCH (10:16)
[2020-09-16] MEDS: PANTOPRAZOLE 40 MG TABLET. PO SCH ×2 (10:17→21:53)
[2020-09-16] MEDS: TORSEMIDE 20 MG TABLET. PO SCH ×3 (10:17→21:53)
[2020-09-16] MEDS: BACLOFEN 20 MG TABLET PO SCH ×3 (10:17→21:53)
[2020-09-16] MEDS: PHENAZOPYRIDINE 200 MG TABLET. PO SCH ×4 (10:17→21:52)
[2020-09-16] MEDS: MULTIVITAMIN with MINERAL TABLET. PO SCH ×2 (10:17→21:51)
[2020-09-16] MEDS: TOPIRAMATE 25 MG TABLET. PO SCH ×2 (10:17→21:54)
[2020-09-16] MEDS: GABAPENTIN 300 MG CAPSULE. PO SCH ×3 (10:17→21:50)
[2020-09-16] MEDS: SPIRONOLACTONE 25 MG TABLET PO SCH ×2 (10:18→21:53)
[2020-09-16] MEDS: ASPIRIN 325 MG TABLET PO SCH ×2 (10:18→21:50)
[2020-09-16] MEDS: guaiFENesin/PS-EPHED 600/60MG 1 TAB TAB.ER.12H PO SCH ×2 (10:19→21:51)
[2020-09-16] MEDS: FLUDROCORTISONE 0.1 MG TABLET PO SCH (10:48)
[2020-09-16] MEDS: HYDROCORTISONE 10 MG TABLET PO SCH ×2 (10:48→21:52)
[2020-09-16 10:52] VITALS: BP 93/56
[2020-09-16 13:36] LABS: CALCIUM 8.2 mg/dL (8.5-10.1); CREATININE 1.5 mg/dL (0.6-1.0); GFR 37.6; POTASSIUM 3.4 mmol/L (3.5-5.1)
[2020-09-16 13:39] LABS: HEMATOCRIT 28.8 % (36.0-47.0); HEMOGLOBIN 8.8 g/dL (12.0-15.5); RED BLOOD COUNT 2.73 x10^6/uL (3.50-5.40); RED CELL DISTRIBUTION WIDTH 17.9 % (11.5-14.5); WHITE BLOOD COUNT 11.3 x10^3/uL (4.0-11.0)
[2020-09-16 13:50] LABS: ALBUMIN 2.8 g/dL (3.4-5.0); TOTAL BILIRUBIN 0.4 mg/dL (0.2-1.0); TOTAL PROTEIN 5.7 g/dL (6.4-8.2)
[2020-09-16] MEDS ORDERED: levoFLOXacin PER PHARMACY 1 EACH. MC PRN (14:00)
--- NOTE | 2020-09-16 14:28 | HP ---
ADMIT DATE: HISTORY OF PRESENT ILLNESS: The patient is a 44-year-old female patient who came to the Emergency Room complaining of pain in her left lower extremity. She apparently was extensively investigated in the Emergency Room and has had lab work and imaging studies. Her lab work showed that she has leukocytosis, the white cell count of 16,900. Her chemistry showed that she has acute on chronic kidney injury. Her BUN is 37, creatinine is 2.3. Her prothrombin time, INR and aPTT are normal. Urinalysis showed the patient has large amount of leukocyturia 20-40 with moderate amount of bacteria. She has had also CT scan of the abdomen and pelvis without contrast, which showed no acute abnormality seen throughout the abdomen and pelvis, moderate degree of constipation additionally, she has also absent uterus, left ovarian cyst identified in 2019, comparison has resolved. No concerning adnexal abnormality in the right with only a small cystic area seen. The patient has moderate degree of constipation, redemonstration of partial herniation of the proximal transverse colon through the right lower quadrant, right paramidline defect, but she has minimal aortic calcific atherosclerosis, no aneurysmal dilatation. No lymphadenopathy by size criteria. She has ventral midline surgical changes without complicated or large recurrent hernia. Her chest x-ray showed the patient has left basilar airspace disease suspicious for infectious process. The patient was admitted with sepsis, probably pneumonia versus UTI, acute on chronic kidney injury and microcytic anemia. She was also hypotensive. She was given about 3 liters of normal saline, started on cefepime 2 g IV and continued on all her other medications and was admitted for further evaluation. She has also had multiple wounds on her outer aspect of the left leg, right heel and left elbow. 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 She has gastroparesis, for which she has undergone gastrectomy, bronchial asthma, chronic obstructive pulmonary disease. She has mild stroke with left-sided weakness, hypertension, history of methicillin-resistant Staphylococcus aureus infection, lumbar spinal stenosis. She also has a history of C. diff colitis, pulmonary embolism, hemorrhoids, hiatal hernia, body image disorder, kidney stones, foot drop, anxiety, depression and tobacco use. He has also history of acute on chronic diastolic congestive heart failure, history of acute kidney injury due to cardiorenal syndrome. PAST SURGICAL HISTORY: Significant for tonsillectomy, adenoidectomy, cholecystectomy, gastrectomy, multiple abdominal surgeries, history of PEG tube placement and removal, ventral hernia repair and cyst excision, hysterectomy and most recently right rotator cuff tear. She has also suprapubic catheter placement. ALLERGIES: SHE IS ALLERGIC TO SULFA DRUGS, CITRIC ACID AND SHELLFISH. FAMILY HISTORY: She has 2 brothers, both older and alive. Her older brother has diabetes and hypertension. Her younger brother has hypertension. His diabetes was ameliorated after he underwent bypass surgery. Her father is still alive at the age of 73. He is known to have myocardial infarction and underwent 5-vessel coronary artery bypass graft surgery. Her mother is still alive at the age of 72, has had myocardial infarction, for which she underwent PCI with stent deployment. SOCIAL HISTORY: She is , has 1 son. She smokes half a pack a day. She does not drink alcohol or use recreational drugs. 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 MEDICATIONS: She is currently on following medications: She is on baclofen 20 mg 3 times a day, spironolactone 25 mg twice a day, aspirin 325 mg twice a day, oxycodone/APAP 10/325 one tablet 4 times a day, acetaminophen 325 mg 4 times a day, gabapentin 300 mg 3 times a day, topiramate 50 mg twice a day. She is on duloxetine 60 mg twice a day, mirtazapine 30 mg at bedtime, trazodone 150 mg at bedtime, alprazolam 0.25 mg twice a day. She is on potassium chloride 60 mEq 3 times a day, torsemide 20 mg 3 times a day. She is on metolazone 5 mg daily. She is on Mucinex extended release 600/60 one tablet twice a day. She is on fluticasone propionate for Flonase 2 sprays to each nostril once a day. She is on magnesium oxide 400 mg twice a day, ondansetron 4 mg every 4 hours as needed, Protonix 40 mg twice a day, fludrocortisone 100 mcg takes 300 twice a day. She is on hydrocortisone 20 mg twice a day, phenazopyridine 200 mg 4 times a day, ascorbic acid 1000 mg 3 times a day. She is on cholecalciferol 50 mcg capsule 3 times a day, multivitamin 1 tablet twice a day. She is on melatonin 20 mg at bedtime. REVIEW OF SYSTEMS: As per history of present illness. She apparently has home health that takes care of her wounds and do the dressing changes twice a week and she goes to the [facility]ound [facility] at [facility] every Wednesday and she was seen there actually on Wednesday, 3 days ago. PHYSICAL EXAMINATION: GENERAL: On arrival to the Emergency Room, she looked well and was clearly in no apparent respiratory distress. No pallor, jaundice, cyanosis or thyromegaly. No jugular venous distention or limb edema. VITAL SIGNS: His heart rate was 100, blood pressure was 94/51, temperature was 98.9, respiratory rate was 20 and her oxygen saturation was 85% on room air. HEAD, EYES, EARS, NOSE AND THROAT: Showed normocephalic, atraumatic. NECK: Supple. HEART: Showed normal first and second heart sounds. No gallop, rub or murmur. CHEST: Clear to auscultation. No crepitation or rhonchi. ABDOMEN: Distended, soft, nontender with suprapubic catheter in place. There is no guarding or rigidity. No organomegaly. All hernial orifices intact. Bowel sounds normal. NEUROLOGIC: She is awake, alert, responding appropriately. All cranial nerves intact. EXTREMITIES: She moves extremities without difficulty. She has wounds on the outer aspect of left leg, right heel and the elbow on the left upper extremity, all covered with dressing. LABORATORY DATA: Her lab work on arrival showed a white cell count of 16,900, hemoglobin 9, hematocrit 29, MCV 103 and platelet count of 224,000. Her chemistry showed a serum sodium of 144, potassium 3.9, chloride 106, bicarbonate 29, anion gap of 9, BUN 37, creatinine 2.3, estimated GFR was 22 mL per minute. Her glucose was 102. Calcium was 8.6. Total bilirubin, AST, ALT, alkaline phosphatase were normal. Total protein was 6.3, albumin was 3.3. His prothrombin time, INR and aPTT are all normal. Urinalysis showed the urine was orange cloudy with there are 1-2 rbc's, 20-40 wbc's with moderate amount of bacteria. ASSESSMENT AND PLAN: In summary, this is a 44-year-old female patient who was admitted with questionable cellulitis of her left lower extremity; however, there is no erythema around the wound on the outer aspect of left leg or right heel; however, she definitely has evidence of urinary tract infection. Also, chest x-ray and clinical exam are consistent with what seemed to be pneumonia, community-acquired. We reconciled all her medications and I will continue with cefepime, which she was started by the ER physician. We will repeat all her labs again and decide on further management accordingly. UMESH HOLCOMB MD DR: RONALD/shayna JOB#: [id number] / [id number]
[2020-09-16 14:59] VITALS: BP 95/58
[2020-09-16] MEDS: ACETAMINOPHEN 325 MG TABLET PO PRN (16:28)
[2020-09-16] MEDS ORDERED: METH1TAB20 PO (16:48)
[2020-09-16] MEDS ORDERED: OMEP20CA16 PO (16:48)
[2020-09-16] MEDS ORDERED: CEFEPIME HCL 2 GM in IV NORMAL SALINE 100ML 100 ML IV SCH (17:00)
--- NOTE | 2020-09-16 18:06 | NUR ---
Received report from Francia GORDON at [id number]
[2020-09-16 18:25] VITALS: BP 97/58
--- NOTE | 2020-09-16 18:44 | PN ---
DATE: 09/16/2020 SUBJECTIVE: The patient is resting, slightly propped up in bed, in no apparent respiratory distress. She is awake, alert. On questioning her, she did complain of pain in her right heel and inability to put on weight. She also had cough that seems to be productive with whitish sputum. Denied any chest pain, denied any chills, rigors or fever. On exam, this afternoon, she looked pale, but no jaundice or cyanosis. No lymphadenopathy, no thyromegaly. No jugular venous distention. No lower limb edema. OBJECTIVE: VITAL SIGNS: Her heart rate was 59, blood pressure was 93/56, temperature was 98.3, respiratory rate 20, and oxygen saturation was 97% on 5 liters of oxygen. HEAD, EYES, EARS, NOSE AND THROAT: Showed normocephalic, atraumatic. NECK: Supple. HEART: Showed normal first and second heart sounds. No gallop, rub or murmur. CHEST: Shows central trachea, equal bilateral chest expansion, air entry, vesicular sounds with bilateral basal crepitation. I could not appreciate any rhonchi. ABDOMEN: Distended, soft with suprapubic catheter in place. There is no guarding or rigidity. No organomegaly. All hernial orifice intact. Bowel sounds normal. NEUROLOGIC: She was awake, alert, responding appropriately. All cranial nerves are intact. She moves extremities without difficulty. She has wounds in the outer aspect of the left leg with healing well with no evidence of any surrounding erythema or tenderness. She has wound on the inner aspect of the right heel and also on the outer aspect of left forearm covered with dressing. She is followed by home health, dressing changes done twice a week and she goes to the wound care every Wednesday and she was there actually this last Wednesday, 3 days ago. Her lab work are still pending at the time of this dictation. Her intake was 2450, output was 3750. ASSESSMENT: The patient on urinalysis has a large number of white cell count 20-40 with moderate amount of bacteria. Her chest x-ray showed the patient has left basilar airspace disease suspicious for an infectious process; however, CT scan of the abdomen and pelvis showed that the unchanged visualized mediastinal contents left more than right basilar atelectasis. There is no newly developed focal hepatic parenchymal abnormality. Surgically absent gallbladder, nondilated biliary tree. No peripancreatic inflammation. No adrenal gland masses, unchanged size of the spleen. No nephrolithiasis or hydronephrosis. Renal, Nephrology is within normal limits. There is small amount of gas within the left ureter, most likely iatrogenic given suprapubic catheter. \The urinary bladder is mostly collapsed around the catheter balloon. The CT scan of the pelvis showed absent uterus, left ovarian cyst identified on the 2019 comparison has resolved. No concerning adnexal abnormality on the right with only a small cystic area seen on image 123. There is moderate degree of constipation. Redemonstration of partial herniation of the proximal transverse colon through the right lower quadrant, right paramedian defect. She has no CT scan manifestation of incarceration, status post gastric bypass. No findings of bowel obstruction or anastomotic dehiscence, minimal aortic calcific atherosclerosis. No aneurysmal dilatation. No lymphadenopathy by size criteria, ventral midline surgical changes without complicated or large recurrent hernia. ASSESSMENT: 1. [id number] kidney injury. Her creatinine at the baseline will be about 1.2 and now it is 2.3 as urinary tract infection. 2. Questionable community-acquired pneumonia. 3. Multiple wounds in the left arm and both lower extremities. 4. 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 She has chronic diastolic congestive heart failure for which she is on metolazone, torsemide, spironolactone and also potassium. PLAN: My plan is to repeat all her labs, continue with cefepime for now and once kidney function resolved and improved, I will repeat her labs again tomorrow and perhaps a chest x-ray to see if there is resolution of her atelectasis. UMESH HOLCOMB MD DR: RONALD/shayna JOB#: [id number] / [id number]
[2020-09-16] MEDS ORDERED: NON FORMULARY ITEM (Omeprazole 1 CAP) PO SCH (21:00)
[2020-09-16] MEDS: METHENAMINE HIPPURATE 1 GM TABLET PO SCH (21:50)
[2020-09-16] MEDS: LACTOBACILLUS RHAMNOSUS GG 1 CAPSULE. PO SCH (21:50)
[2020-09-16] MEDS: traZODone 150 MG TABLET. PO SCH (21:53)
[2020-09-16] MEDS: MIRTAZAPINE 30 MG TABLET PO SCH (21:53)
[2020-09-16 22:57] VITALS: BP 97/59
--- NOTE | 2020-09-16 23:40 | NUR ---
PT stated fluticortisone is TID dosing, not daily and wished it to be changed. MD notified and will review further on rounding tomorrow.
[2020-09-17] MEDS: oxyCODONE/APAP 10/325 1 TAB TABLET PO PRN ×3 (04:48→19:52)
[2020-09-17 05:40] LABS: HEMOGLOBIN 9.3 g/dL (12.0-15.5); RED BLOOD COUNT 2.9 x10^6/uL (3.50-5.40); RED CELL DISTRIBUTION WIDTH 17.3 % (11.5-14.5)
[2020-09-17 05:55] LABS: CALCIUM 8.6 mg/dL (8.5-10.1); CREATININE 1.3 mg/dL (0.6-1.0); GFR 44.3; POTASSIUM 3.8 mmol/L (3.5-5.1); TOTAL BILIRUBIN 0.4 mg/dL (0.2-1.0)
[2020-09-17 05:59] VITALS: BP 99/66
[2020-09-17] MEDS: ONDANSETRON ODT 4 MG TAB.RAPDIS PO SCH ×3 (07:49→16:54)
[2020-09-17] MEDS: ALPRAZolam 0.25 MG TABLET PO SCH ×2 (08:51→21:22)
[2020-09-17] MEDS: PANTOPRAZOLE 40 MG TABLET. PO SCH ×2 (08:51→21:24)
[2020-09-17] MEDS: GABAPENTIN 300 MG CAPSULE. PO SCH ×3 (08:51→21:22)
[2020-09-17] MEDS: DULoxetine HCL 60 MG CAPSULE.DR PO SCH ×2 (08:52→21:24)
[2020-09-17] MEDS: metOLazone 5 MG TABLET PO SCH (08:52)
[2020-09-17] MEDS: ASPIRIN 325 MG TABLET PO SCH ×2 (08:52→21:24)
[2020-09-17] MEDS: TOPIRAMATE 25 MG TABLET. PO SCH ×2 (08:52→21:24)
[2020-09-17] MEDS: TORSEMIDE 20 MG TABLET. PO SCH ×3 (08:52→21:23)
[2020-09-17] MEDS: SPIRONOLACTONE 25 MG TABLET PO SCH ×2 (08:53→21:24)
[2020-09-17] MEDS: LACTOBACILLUS RHAMNOSUS GG 1 CAPSULE. PO SCH ×2 (08:53→21:23)
[2020-09-17] MEDS: MAGNESIUM OXIDE 400 MG TABLET PO SCH (08:53)
[2020-09-17] MEDS: POTASSIUM CHLORIDE 20 MEQ TABLET.ER. PO SCH ×3 (08:53→21:23)
[2020-09-17] MEDS: MULTIVITAMIN with MINERAL TABLET. PO SCH ×2 (08:54→21:22)
[2020-09-17] MEDS: BACLOFEN 20 MG TABLET PO SCH ×3 (08:54→21:23)
[2020-09-17] MEDS: CHOLECALCIFEROL (VITAMIN D3) 1,000 UNIT TABLET PO SCH ×3 (08:54→21:22)
[2020-09-17] MEDS: PHENAZOPYRIDINE 200 MG TABLET. PO SCH ×4 (08:54→21:23)
[2020-09-17] MEDS: ASCORBIC ACID 1,000 MG TABLET PO SCH ×3 (08:54→21:23)
[2020-09-17] MEDS: guaiFENesin/PS-EPHED 600/60MG 1 TAB TAB.ER.12H PO SCH ×2 (08:55→21:23)
[2020-09-17] MEDS: HYDROCORTISONE 10 MG TABLET PO SCH ×2 (08:56→21:23)
[2020-09-17] MEDS: METHENAMINE HIPPURATE 1 GM TABLET PO SCH ×2 (08:56→21:24)
[2020-09-17] MEDS: FLUDROCORTISONE 0.1 MG TABLET PO SCH ×2 (08:57→21:23)
[2020-09-17 10:53] VITALS: BP 93/65
[2020-09-17 14:58] VITALS: BP 100/68
--- NOTE | 2020-09-17 17:00 | NUR ---
Wound/Ostomy Care Wound Type/Assessment: Patient seen per wound care consult. See wound assessment. Patient is well known to us from the wound clinic. Patient has stage III pressure ulcer to the right heel, a venous ulcer to the left lower leg, and a healed stage IV pressure ulcer to the left elbow. Wounds cleansed and assessed. Treatment Recommendations/Plan: Recommendations for Hydrofera Blue to the right heel and left lower leg, cover with ABD pads, and kerlix. Change on Wednesday and Wednesday is still inpatient. the left elbow remains scabbed but redressed using artiflex padding, kerlix, and coban to continue to keep wound healed. Dressings applied and patient tolerated well. Education provided: Patient educated on dressing changes and PU treatment and management. Offloading surface/device: Bilateral heels floated Recommended Referrals/Tests: Patient will follow up with us in the wound clinic following discharge. Discharge Recommendations for dressings: Dressing change instructions left in room. Spoke with RN regarding POC. Bed lowered and call light in reach.
[2020-09-17 19:50] VITALS: BP 93/65
[2020-09-17] MEDS: traZODone 150 MG TABLET. PO SCH (21:22)
[2020-09-17] MEDS: MIRTAZAPINE 30 MG TABLET PO SCH (21:24)
[2020-09-18] MEDS: oxyCODONE/APAP 10/325 1 TAB TABLET PO PRN ×4 (01:47→21:03)
[2020-09-18 05:58] VITALS: BP 101/70
[2020-09-18 07:11] LABS: CALCIUM 9.2 mg/dL (8.5-10.1); CREATININE 1.7 mg/dL (0.6-1.0); GFR 32.5; HEMATOCRIT 32.5 % (36.0-47.0); POTASSIUM 3.1 mmol/L (3.5-5.1); RED BLOOD COUNT 3.13 x10^6/uL (3.50-5.40); WHITE BLOOD COUNT 9.8 x10^3/uL (4.0-11.0)
[2020-09-18] MEDS: guaiFENesin/PS-EPHED 600/60MG 1 TAB TAB.ER.12H PO SCH ×2 (08:02→21:04)
[2020-09-18] MEDS: METHENAMINE HIPPURATE 1 GM TABLET PO SCH ×2 (08:02→21:01)
[2020-09-18] MEDS: ALPRAZolam 0.25 MG TABLET PO SCH ×2 (08:03→21:00)
[2020-09-18] MEDS: BACLOFEN 20 MG TABLET PO SCH ×3 (08:03→21:00)
[2020-09-18] MEDS: ASCORBIC ACID 1,000 MG TABLET PO SCH ×3 (08:03→21:01)
[2020-09-18] MEDS: TOPIRAMATE 25 MG TABLET. PO SCH ×2 (08:03→21:01)
[2020-09-18] MEDS: TORSEMIDE 20 MG TABLET. PO SCH ×3 (08:03→21:01)
[2020-09-18] MEDS: ONDANSETRON ODT 4 MG TAB.RAPDIS PO SCH ×3 (08:04→16:59)
[2020-09-18] MEDS: SPIRONOLACTONE 25 MG TABLET PO SCH ×2 (08:04→21:02)
[2020-09-18] MEDS: ASPIRIN 325 MG TABLET PO SCH ×2 (08:04→20:59)
[2020-09-18] MEDS: PHENAZOPYRIDINE 200 MG TABLET. PO SCH ×4 (08:04→21:00)
[2020-09-18] MEDS: metOLazone 5 MG TABLET PO SCH (08:04)
[2020-09-18] MEDS: LACTOBACILLUS RHAMNOSUS GG 1 CAPSULE. PO SCH ×2 (08:04→20:59)
[2020-09-18] MEDS: MULTIVITAMIN with MINERAL TABLET. PO SCH ×2 (08:05→21:01)
[2020-09-18] MEDS: HYDROCORTISONE 10 MG TABLET PO SCH ×2 (08:05→20:59)
[2020-09-18] MEDS: GABAPENTIN 300 MG CAPSULE. PO SCH ×3 (08:05→21:03)
[2020-09-18] MEDS: CHOLECALCIFEROL (VITAMIN D3) 1,000 UNIT TABLET PO SCH ×3 (08:05→21:00)
[2020-09-18] MEDS: FLUDROCORTISONE 0.1 MG TABLET PO SCH ×2 (08:06→20:59)
[2020-09-18] MEDS: POTASSIUM CHLORIDE 20 MEQ TABLET.ER. PO SCH ×3 (08:07→21:02)
[2020-09-18] MEDS: PANTOPRAZOLE 40 MG TABLET. PO SCH ×2 (08:07→20:59)
[2020-09-18] MEDS: MAGNESIUM OXIDE 400 MG TABLET PO SCH (08:12)
[2020-09-18] MEDS: DULoxetine HCL 60 MG CAPSULE.DR PO SCH ×2 (08:12→21:03)
--- NOTE | 2020-09-18 09:20 | PN ---
DATE: 09/17/2020 SUBJECTIVE: The patient is resting, slightly propped up in bed, in no apparent distress. She stated she is generally feeling much improved. The cough is slightly better and her wounds actually are healing very well. She apparently is seen by home health twice a week and she goes to the wound clinic at [facility] every Wednesday and she was seen actually last Wednesday. Her urine culture has grown more than 100,000 colony forming units per mL of gram-negative rods identified as Pseudomonas aeruginosa. However, the sensitivity is still pending at the time of this dictation. Her blood cultures showed no growth after one day. PHYSICAL EXAMINATION: GENERAL: When I examined her this morning, she looked somewhat pale, but no jaundice or cyanosis. No lymphadenopathy, no thyromegaly. No jugular venous distension. No limb edema. VITAL SIGNS: Her heart rate was 97, blood pressure was 93/65, temperature was 98.3, respiratory rate was 20, and oxygen saturation was 96% on 5 liters of oxygen. HEAD, EYES, EARS, NOSE, AND THROAT: Normocephalic, atraumatic. NECK: Supple. HEART: Normal first and second heart sounds. No gallop or murmur. CHEST: Shows central trachea, good bilateral chest expansion, air entry, vesicular sounds with bilateral basal crepitation. I could not appreciate any rhonchi. ABDOMEN: Distended, soft with a suprapubic catheter in place. There is no guarding or rigidity. No organomegaly. All hernial orifices intact. Bowel sounds normal. NEUROLOGIC: She is awake, alert, responding appropriately. All cranial nerves intact. She moves extremities without difficulty, although she has difficulty putting weight on her right foot and according to her, she is mostly wheelchair bound at home. Her intake was 2450, output was 3750. LABORATORY DATA: Her lab work this morning showed a white cell count of 10,000, hemoglobin 9.3, hematocrit 30, MCV 104 and platelet count of 190,000. Her chemistry showed a serum sodium 143, potassium 3.8, chloride 105, bicarbonate 32, anion gap of 6, BUN 26, creatinine 1.3, estimated GFR was 44 mL per minute. Her glucose 109, calcium was 8.6. Total bilirubin, AST, ALT, alkaline phosphatase were normal. Total protein was 6, albumin 3. Her prothrombin time, INR and aPTT are all normal. Urinalysis showed that she has more than 20-40 wbc's. ASSESSMENT: 1. Acute on chronic kidney injury, improving. Her creatinine is down to 2.3-1.3 today. 2. Urinary tract infection with a growth of more than 100,000 colony forming units per mL of gram-negative rods identified as Pseudomonas aeruginosa. The sensitivity is still pending. 3. Questionable community-acquired pneumonia. 4. She has multiple wounds in her left arm and both lower extremities that are healing nicely. 5. 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 6. Chronic diastolic congestive heart failure for which she is on metolazone, torsemide, spironolactone, and potassium. PLAN: To continue with IV Levaquin. Continue with all other medication. Once we have the sensitivity, she can be discharged home tomorrow. UMESH HOLCOMB MD DR: RONALD/shayna JOB#: [id number] / [id number]
[2020-09-18 10:35] VITALS: BP 105/67
[2020-09-18 15:44] VITALS: BP 94/61
[2020-09-18] MEDS: ACETAMINOPHEN 325 MG TABLET PO PRN (16:59)
--- NOTE | 2020-09-18 17:33 | NUR ---
END OF SHIFT NOTE Pt very sleepy but arousable most of the day. She stated she did not sleep well overnight. Focused education on pain medication use and nutrition to help heal wounds. Pt understanding of teaching. Will continue to monitor. CAILIN, RN
[2020-09-18 20:12] VITALS: BP 103/71
[2020-09-18] MEDS: traZODone 150 MG TABLET. PO SCH (21:00)
[2020-09-18] MEDS: MIRTAZAPINE 30 MG TABLET PO SCH (21:01)
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
[2020-09-19] MEDS: oxyCODONE/APAP 10/325 1 TAB TABLET PO PRN ×2 (02:10→08:24)
[2020-09-19 02:24] VITALS: BP 99/64
[2020-09-19 05:24] VITALS: BP 92/53
[2020-09-19] MEDS: ONDANSETRON ODT 4 MG TAB.RAPDIS PO SCH (06:04)
[2020-09-19] MEDS: metOLazone 5 MG TABLET PO SCH (08:25)
[2020-09-19] MEDS: CHOLECALCIFEROL (VITAMIN D3) 1,000 UNIT TABLET PO SCH (08:25)
[2020-09-19] MEDS: PANTOPRAZOLE 40 MG TABLET. PO SCH (08:25)
[2020-09-19] MEDS: GABAPENTIN 300 MG CAPSULE. PO SCH (08:25)
[2020-09-19] MEDS: DULoxetine HCL 60 MG CAPSULE.DR PO SCH (08:25)
[2020-09-19] MEDS: ALPRAZolam 0.25 MG TABLET PO SCH (08:25)
[2020-09-19] MEDS: PHENAZOPYRIDINE 200 MG TABLET. PO SCH (08:26)
[2020-09-19] MEDS: LACTOBACILLUS RHAMNOSUS GG 1 CAPSULE. PO SCH (08:26)
[2020-09-19] MEDS: TOPIRAMATE 25 MG TABLET. PO SCH (08:26)
[2020-09-19] MEDS: ASPIRIN 325 MG TABLET PO SCH (08:26)
[2020-09-19] MEDS: MULTIVITAMIN with MINERAL TABLET. PO SCH (08:26)
[2020-09-19] MEDS: POTASSIUM CHLORIDE 20 MEQ TABLET.ER. PO SCH (08:26)
[2020-09-19] MEDS: SPIRONOLACTONE 25 MG TABLET PO SCH (08:27)
[2020-09-19] MEDS: TORSEMIDE 20 MG TABLET. PO SCH (08:27)
[2020-09-19] MEDS: BACLOFEN 20 MG TABLET PO SCH (08:27)
[2020-09-19] MEDS: FLUDROCORTISONE 0.1 MG TABLET PO SCH (08:30)
[2020-09-19] MEDS: METHENAMINE HIPPURATE 1 GM TABLET PO SCH (08:30)
[2020-09-19] MEDS: ASCORBIC ACID 1,000 MG TABLET PO SCH (08:30)
[2020-09-19] MEDS: guaiFENesin/PS-EPHED 600/60MG 1 TAB TAB.ER.12H PO SCH (08:30)
[2020-09-19] MEDS: HYDROCORTISONE 10 MG TABLET PO SCH (08:30)
[2020-09-19] MEDS: MAGNESIUM OXIDE 400 MG TABLET PO SCH (08:31)
--- NOTE | 2020-09-19 11:00 | NUR ---
PATIENT IS DISCHARGED HOME, PATIENT HAS WOUND DRESSING TO BLE INTACT WITH DUE DATE TO CHANGE ON 09/20 2020, PATIENT STATED SHE SEES WOUND CARE TEAM REGULARLY AND WILL BE GOING ON WEDNESDAY TO CHANGE DRESSING. DISCHARGE INSTRUCTION AND PRESCRIBED MEDS REVIEWED, PATIENT VERBALIZED UNDERSTANDING. PATIENT LEFT ROOM 117 VIA W/C ACCOMP BY STAFF. PATIENT TAKEN HOME BY FAMILY MEMBER VIA PERSONAL VEHICLE.
--- NOTE | 2020-09-19 11:42 | DS ---
DATE OF DISCHARGE: 09/19/2020 ATTENDING PHYSICIAN: Dr. Simon. FINAL DISCHARGE DIAGNOSES: 1. Systemic inflammatory response syndrome. 2. Pseudomonas urinary tract infection. 3. Chronic nonhealing wounds of skin. 4. Neurogenic bladder with indwelling suprapubic catheter. 5. Chronic pain syndrome. 6. [place]'s disease, on corticosteroid replacement. 7. Gastroparesis. 8. Previous gastrectomy. 9. Old stroke with left-sided weakness. 10. Essential hypertension. 11. History of Clostridium difficile colitis. 12. Chronic kidney disease. 13. Underlying depression with anxiety. 14. Acute on chronic diastolic congestive heart failure. 15. History of previous acute renal injury. HISTORY AND PHYSICAL: This 44-year-old female with multiple medical issues is admitted to the ED with hypotension aggravated by low-grade fevers, nonspecific abdominal pain and evidence of systemic inflammatory response syndrome. Workup indicated probable sepsis. Cultures were pending. She was started on saline. She received 3 liters in the ED to bring up her blood pressure. She was hypotensive. She also received broad-spectrum antibiotics. PHYSICAL EXAMINATION: Please see the dictated note. PERTINENT LABORATORY AND X-RAY STUDIES: On admission, her hemoglobin was 9.2 g/dL, white count 16,900. Subsequent hemoglobin came up a bit to 10.0 g/dL, white count came down to 9800. Chemistry panel: Potassium was 3.9 mEq. Followup was down to 3.1. This will be replaced. She had a sodium of 142. Creatinine was 2.3, came down to 1.5 and then 1.7 mg/dL. Transaminases are normal. Cultures of blood were negative at 72 hours. Urine culture showed greater than 100,000 colonies of Pseudomonas aeruginosa, which was pansensitive to the antibiotic panel. COURSE IN THE HOSPITAL: The patient received 5 full days of intravenous antibiotics. Serial CBC, chemistry panel drawn with improvement of her creatinine and electrolytes. She did well, pain was managed. On the fifth hospital day, she was ready for discharge. I recommended 7 more days of Cipro 500 mg p.o. daily, adjusted for renal clearance. In addition, I gave her some extra tablets of Percocet for pain until she sees her pain clinic doctor. Other home meds are unchanged, they include the following: She will continue her scheduled Florinef and hydrocortisone along with her Percocet 10/325 p.r.n. pain, alprazolam, vitamin C, aspirin, baclofen, Cymbalta 60 mg daily, fluticasone nasal spray, Neurontin 300 mg t.i.d., Mucinex, hydrocortisone, melatonin, methenamine, Remeron 30 mg at bedtime, multivitamin, Protonix, potassium supplementation, Aldactone, Topamax, torsemide and trazodone doses unchanged. For now, we simplified her meds. I stopped the ascorbic acid, vitamin D3, magnesium oxide, metolazone, omeprazole since she is already on Protonix and Pyridium. These were p.r.n. meds. She will follow up with Dr. Castañeda at the regular scheduled time. She was discharged then in stable condition with explicit written followup care. I wrote her scripts for 7 more days of Levaquin and 15 more tablets of the oxycodone. TOTAL DISCHARGE TIME SPENT: 38 minutes. SCHUYLER HINES MD DR: NADEEM/shayna JOB#: [id number] / [id number] Brando Allison AHMED MD
== END 2020-09-19 11:00 | disposition home or self-care (01) | DRG 871 ==
LOC: ER 13:03 → 1 SOUTH 16:48
PROVIDERS: ADMIT Internal Medicine; ATTEND Internal Medicine
DX: A41.9 Sepsis, unspecified organism (principal); I50.33 Acute on chronic diastolic (congestive) heart failure; E27.1 Primary adrenocortical insufficiency; I13.0 Hypertensive heart and chronic kidney disease with heart failure and stage 1 through stage 4 chronic kidney disease, or unspecified chronic kidney disease; I69.354 Hemiplegia and hemiparesis following cerebral infarction affecting left non-dominant side; J44.0 Chronic obstructive pulmonary disease with (acute) lower respiratory infection; L03.90 Cellulitis, unspecified; N17.9 Acute kidney failure, unspecified; N39.0 Urinary tract infection, site not specified; B96.5 Pseudomonas (aeruginosa) (mallei) (pseudomallei) as the cause of diseases classified elsewhere; D50.9 Iron deficiency anemia, unspecified; F17.210 Nicotine dependence, cigarettes, uncomplicated; F41.8 Other specified anxiety disorders; G89.4 Chronic pain syndrome; K31.84 Gastroparesis; K59.00 Constipation, unspecified; N18.9 Chronic kidney disease, unspecified; N31.9 Neuromuscular dysfunction of bladder, unspecified; Z82.49 Family history of ischemic heart disease and other diseases of the circulatory system; Z83.3 Family history of diabetes mellitus; Z86.14 Personal history of Methicillin resistant Staphylococcus aureus infection; Z86.19 Personal history of other infectious and parasitic diseases; Z86.711 Personal history of pulmonary embolism; Z87.442 Personal history of urinary calculi; Z90.3 Acquired absence of stomach [part of]; Z90.49 Acquired absence of other specified parts of digestive tract; Z90.710 Acquired absence of both cervix and uterus; Z93.59 Other cystostomy status; F32.9 Major depressive disorder, single episode, unspecified; Z88.2 Allergy status to sulfonamides; Z88.8 Allergy status to other drugs, medicaments and biological substances; Z91.013 Allergy to seafood; I95.9 Hypotension, unspecified; Z79.899 Other long term (current) drug therapy
CPT/HCPCS: 36415; 71045; 74176; 80048; 80053; 81001; 82550; 83605; 83880; 85007; 85025; 85027; 85610; 85730; 87040; 87086; 96361; 96365; J0692; J1956; Q0162; 99285-25; J7030

== ENCOUNTER 2020-10-15 07:38 | Observation (INO) | payer OTHER, MEDICAID ==
[~2020-10-15] VITALS: Ht 152.4 cm; Wt 85.2 kg
--- NOTE | 2020-10-15 07:56 | PHYS DOC ---
Past History Past Medical History: Asthma, CHF, COPD, Hypotension, MRSA, Stroke Additional Past Medical Histor: stroke, gastroparesis, spinal stenosis, anni disease, stroke (right side Past Surgical History: Cholecystectomy, Hysterectomy Additional Past Surgical Histo: suprapubic catheter, abdominal surgery, hernia repair, colectomy Smoking: Cigarettes Alcohol Use: None Drug Use: None Adult General Chief Complaint Chief Complaint: FATIGUE HPI HPI Patient is a 44-year-old female who presents with fatigue. Reports symptoms began over the past week, reports over the past week she has been helping her daughter care for her 3 kids and has progressively been feeling more fatigued. She reports that on Wednesday she told her daughter she could no longer care for the kids and slept approximately 20 hours woke up feeling unrefreshed. Also reports that she has not been eating appropriately or drinking appropriately. Reports that when she tries to eat a banana or any other small meal she gags, describes the poor effort of eating due to to not having any energy. Denies sick contacts, fevers, chest pain, shortness of breath, nausea, vomiting, changes in urination. Does report that she is currently undergoing treatment for her UTI with cefdinir and metronidazole given to her by her nurse practitioner over the past week. Does report associated diarrhea due to the medications. Reports she is on 5 L of oxygen at home with no increased oxygen demand over the past few days. She takes 0.25 alprazolam twice daily and 7.5 Jones 4 times daily, no other recent medication changes besides prescribed antibiotics noted above Review of Systems Review of Systems Fourteen body systems of review of systems have been reviewed. See HPI for pertinent positives and negative responses, other garcia all other systems are negative, non-pertinent or non-contributory Allergies Allergies Allergies Coded Allergies Type Severity Reaction Last Updated Verified Sulfa (Sulfonamide Antibiotics) Allergy Intermediate 02/15/20 Yes citric acid Allergy Intermediate 02/15/20 Yes honey Allergy Intermediate 02/16/20 Yes shellfish derived Allergy Intermediate 02/15/20 Yes Physical Exam Physical Exam Constitutional: Well developed, well nourished, no acute distress, non-toxic appearance. HENT: Normocephalic, atraumatic, bilateral external ears normal, oropharynx moist, no oral exudates, nose normal. Eyes: PERRLA, EOMI, conjunctiva normal, no discharge. Neck: Normal range of motion, no tenderness, supple, no stridor. Cardiovascular: Heart rate regular, sinus rhythm, no murmurs rubs or gallops, right chest port present Lungs & Thorax: Bilateral breath sounds clear to auscultation patient was coughing on exam without sputum production, nasal cannula in place on 5 L which is baseline for her, no respiratory distress Abdomen: Bowel sounds normal, soft, no tenderness, no masses, no pulsatile masses. Nonsurgical abdomen, no peritoneal signs. Slight tenderness to palpation over the right lower quadrant. Suprapubic catheter without obvious signs of superficial infection. No CVA tenderness bilaterally. Skin: Warm, dry, no erythema, no rash. Both legs with bandages due to chronic wounds which are evaluated in wound clinic. Back: No tenderness, no CVA tenderness. Extremities: No tenderness, no cyanosis, no clubbing, ROM intact, no edema. Neurologic: Alert and oriented X 3, grossly normal motor & sensory function, no focal deficits noted. Psychologic: Flat affect, depressed mood Current Patient Data Vital Signs Vital Signs Date Time Temp Pulse Resp B/P (MAP) Pulse Ox O2 Delivery O2 Flow Rate FiO2 10/15/20 07:44 98.6 105 20 125/69 (87) 94 Room Air Lab Results Laboratory Tests Test 10/15/20 08:35 10/15/20 09:10 White Blood Count 12.1 x10^3/uL Red Blood Count 2.76 x10^6/uL Hemoglobin 9.1 g/dL Hematocrit 29.7 % Mean Corpuscular Volume 108 fL Mean Corpuscular Hemoglobin 33 pg Mean Corpuscular Hemoglobin Concent 31 g/dL Red Cell Distribution Width 18.1 % Platelet Count 147 x10^3/uL Neutrophils (%) (Auto) 81 % Lymphocytes (%) (Auto) 12 % Monocytes (%) (Auto) 5 % Eosinophils (%) (Auto) 2 % Basophils (%) (Auto) 1 % Neutrophils # (Auto) 9.8 x10^3uL Lymphocytes # (Auto) 1.4 x10^3/uL Monocytes # (Auto) 0.6 x10^3/uL Eosinophils # (Auto) 0.2 x10^3/uL Basophils # (Auto) 0.1 x10^3/uL Sodium Level 142 mmol/L Potassium Level 3.7 mmol/L Chloride Level 107 mmol/L Carbon Dioxide Level 27 mmol/L Anion Gap 8 Blood Urea Nitrogen 16 mg/dL Creatinine 1.2 mg/dL Estimated GFR (Cockcroft-Gault) 48.6 BUN/Creatinine Ratio 13 Glucose Level 88 mg/dL Lactic Acid Level 0.7 mmol/L Calcium Level 8.3 mg/dL Total Bilirubin 0.3 mg/dL Aspartate Amino Transf (AST/SGOT) 20 U/L Alanine Aminotransferase (ALT/SGPT) 20 U/L Alkaline Phosphatase 63 U/L Troponin I Quantitative < 0.017 ng/mL Total Protein 5.6 g/dL Albumin 3.2 g/dL Albumin/Globulin Ratio 1.3 Urine Collection Type Suprapubic Urine Color Yellow Urine Clarity Hazy Urine pH 8.5 Urine Specific [place] 1.015 Urine Protein 30 mg/dl Urine Glucose (UA) Neg mg/dL Urine Ketones (Stick) Neg mg/dL Urine Blood Small Urine Nitrite Neg Urine Bilirubin Neg Urine Urobilinogen Dipstick 0.2 mg/dL Urine Leukocyte Esterase Trace Urine RBC 20-40 /HPF Urine WBC Tntc /HPF Urine Squamous Epithelial Cells None /LPF Urine Bacteria 0 /HPF Urine Mucus Slight /LPF Urine Yeast Present /HPF Current Medications Medications (Trade) Dose Ordered Sig/Mani Route PRN Reason Start Time Stop Time Status Last Admin Dose Admin Sodium Chloride 500 ml @ 0 mls/hr 1X ONCE IV 10/15/20 08:15 10/15/20 08:16 DC 10/15/20 08:40 Piperacillin Sod/ Tazobactam Sod 3.375 gm/Sodium Chloride 50 ml @ 100 mls/hr 1X ONCE IV 10/15/20 10:30 10/15/20 10:59 DC 10/15/20 11:02 Sodium Chloride 50 ml @ As Directed STK-MED ONCE .ROUTE 10/15/20 10:55 10/15/20 10:55 DC Piperacillin Sod/ Tazobactam Sod (Zosyn) 3.375 gm STK-MED ONCE IV 10/15/20 10:55 10/15/20 10:55 DC Oxycodone/ Acetaminophen (Percocet 7.5/ 325) 1 tab 1X ONCE PO 10/15/20 11:30 10/15/20 11:31 DC 10/15/20 11:27 EKG EKG EKG interpreted by me at 0813hrs, normal rate and rhythm at 98 bpm. Intervals unremarkable. Normal axis no obvious ST elevations or depressions Radiology/Procedures Radiology/Procedures [] Impressions: Exam Date: 10/15/2020 8:11 AM XR CHEST 1V Indication: Reason: cough, fatigue / Spl. Instructions: / History: Comparison: September 15, 2020 FINDINGS/ IMPRESSION: Right central venous catheter terminates in the SVC. The cardiac silhouette and pulmonary vasculature are within normal limits. There is no focal consolidation, pleural effusion or pneumothorax. Electronically signed by: John Maria MD (10/15/2020 8:29 AM) [id number] DICTATED AND SIGNED BY: JOHN MARIA MD DATE: 10/15/20 0828 Heart Score C/O Chest Pain: No HEART Score for Chest Pain: HEART Score for Chest Pain Response (Comments) Value History Slighlty/Non-Suspicious 0 ECG Normal 0 Age < 45 0 Risk Factors >3 Risk Factors or Hx CAD 2 Total 2 Risk Factors: Risk Factors: DM, Current or recent (<one month) smoker, HTN, HLP, family history of CAD, obesity. Risk Scores: Risk Factors: DM, Current or recent (<one month) smoker, HTN, HLP, family history of CAD, obesity. Course & Med Decision Making Course & Med Decision Making Patient is a 44-year-old female presenting for fatigue for approximately 4 to 5 days. On exam patient was in no acute distress, it was noted that she had a slightly reduced SPO2 at 89%, patient reported that she is on 5 L of home O2 with no increased oxygen demand over the past couple days. On exam patient was hemodynamically stable without any surgical and/or emergent findings on physical exam. ER work-up obtained, concerning for complicated UTI. I contacted hospitalist given case complexity and complexity of the patient, hospitalist is familiar with her case. He accepted patient under his care and recommended we start broad-spectrum antibiotics, Zosyn, for patient and for her to be admitted. I updated patient on proposed plan of care and she was amenable. All questions and concerns addressed prior to your departure to [facility] for admission Critical Care Time This patient required critical care. Due to the fact that the patient required a significant amount of one on one physician - patient contact time, ordering and review of studies, arranging urgent treatment with development of a management plan, evaluation of patients response to treatment with frequent reassessments, and discussions with other providers this patient required 40 minutes of critical care time. Critical care time was indicated due to the inherent instability and/or potential for instability in this patient. The critical care time that is allocated to this patient is above and beyond any time spent on any other billable procedures performed on this patient. Dragon Disclaimer Dragon Disclaimer This electronic medical record was generated, in whole or in part, using a voice recognition dictation system. Departure Departure: Impression: Primary Impression: UTI (urinary tract infection) Additional Impressions: Generalized weakness Sepsis Disposition: ADMITTED INPATIENT Admitting Physician: Lenin Simon Condition: STABLE Referrals: GABRIEL DO MD (PCP) Problem Qualifiers NORBERTO STANLEY DO Oct 15, 2020 07:56
[2020-10-15] MEDS ORDERED: IV NORMAL SALINE 500ML 500 ML IV ONE (08:15)
--- NOTE | 2020-10-15 08:32 | RAD ---
Exam Date: 10/15/2020 8:11 AM XR CHEST 1V Indication: Reason: cough, fatigue / Spl. Instructions: / History: Comparison: September 15, 2020 FINDINGS/ IMPRESSION: Right central venous catheter terminates in the SVC. The cardiac silhouette and pulmonary vasculature are within normal limits. There is no focal consolidation, pleural effusion or pneumothorax. Electronically signed by: Jose Maria MD (10/15/2020 8:29 AM) [id number]
[2020-10-15 08:50] LABS: BASO # 0.1 x10^3/uL (0.0-0.2); BASO % 1 % (0-3); EOS # 0.2 x10^3/uL (0.0-0.7); EOS % 2 % (0-3); HEMATOCRIT 29.7 % (36.0-47.0); HEMOGLOBIN 9.1 g/dL (12.0-15.5); LYMPH # 1.4 x10^3/uL (1.0-4.8); LYMPH % 12 % (24-48); MEAN CORPUSCULAR HEMOGLOBIN 33 pg (25-35); MEAN CORPUSCULAR HGB CONC 31 g/dL (31-37); MEAN CORPUSCULAR VOLUME 108 fL (79-100); MONO # 0.6 x10^3/uL (0.0-1.1); MONO % 5 % (0-9); NEUT # 9.8 x10^3uL (1.8-7.7); NEUT % 81 % (31-73); PLATELET COUNT 147 x10^3/uL (140-400); RED BLOOD COUNT 2.76 x10^6/uL (3.50-5.40); RED CELL DISTRIBUTION WIDTH 18.1 % (11.5-14.5); WHITE BLOOD COUNT 12.1 x10^3/uL (4.0-11.0)
[2020-10-15 09:00] LABS: CALCIUM 8.3 mg/dL (8.5-10.1); CREATININE 1.2 mg/dL (0.6-1.0); GFR 48.6; POTASSIUM 3.7 mmol/L (3.5-5.1)
[2020-10-15 09:05] LABS: ALBUMIN 3.2 g/dL (3.4-5.0); ALBUMIN/GLOBULIN RATIO 1.3 (1.0-1.7); TOTAL BILIRUBIN 0.3 mg/dL (0.2-1.0); TOTAL PROTEIN 5.6 g/dL (6.4-8.2)
[2020-10-15 09:35] LABS: BILIRUBIN,URINE NEG (NEG); CLARITY,URINE HAZY; COLOR,URINE YELLOW; GLUCOSE,URINE NEG (NEG)
[2020-10-15 09:36] LABS: NITRITE,URINE NEG (NEG); UROBILINOGEN,URINE 0.2 mg/dL (0.2 mg/dL)
[2020-10-15 09:38] LABS: YEAST,URINE PRESENT /HPF
[2020-10-15 09:40] LABS: WBC,URINE TNTC /HPF (0-4)
[2020-10-15 09:41] LABS: BACTERIA,URINE 0 /HPF (0-FEW); RBC,URINE 20-40 /HPF (0-2)
--- NOTE | 2020-10-15 09:49 | EKG ---
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
[2020-10-15] MEDS ORDERED: PIPERACILLIN/TAZOBACTAM 3.375 GM in IV NORMAL SALINE 50ML 50 ML IV ONE (10:30)
[2020-10-15] MEDS ORDERED: PIPERACILLIN/TAZOBACTAM 3.375 GM VIAL IV ONE (10:55)
[2020-10-15] MEDS ORDERED: IV NORMAL SALINE 50ML 50 ML ONE (10:55)
[2020-10-15] MEDS ORDERED: oxyCODONE/APAP 7.5/325 1 TAB TABLET PO ONE (11:30)
--- NOTE | 2020-10-15 12:16 | NUR ---
PATIENT IS 44 Y O F ARRIVED VIA EMS. PATIENT DENIED ANY PAIN, STATED SHE DOES FEELING ABD DISCOMFORT D/T ANTIBIOTICS SHE'S BEEN TAKEN TO TREAT UTI FOR 7 DAYS. PT C/O DIARRHEA 2 TO 3 TIMES /DAY, DECREASED APPETITE, INCREASED WEAKNESS. PATIENT IS CURRENTLY IN A BED AWAKE EATING LUNCH. PATIENT WAS ORIENTED TO THE ROOM AND HOSPITAL POLICIES. PATIENT WAS TESTED FOR COVID IN ED, RESULT PENDING. CONTACT AND [employer]ORNE PRECAUTIONS INITIATED.
[2020-10-15 12:30] VITALS: BP 99/60
[2020-10-15 16:00] VITALS: BP 98/59
[2020-10-15] MEDS ORDERED: FLUCONAZOLE 100MG/50ML PREMIX 50 ML IV SCH (17:00)
[2020-10-15] MEDS ORDERED: FLUTICASONE 50MCG/NASAL SPRAY 16GM BOTTLE. NS PRN (17:00)
[2020-10-15] MEDS: VANCOMYCIN 125 MG/2.5 ML ORAL SOLUTION. PO SCH ×2 (17:00→20:44)
[2020-10-15] MEDS: oxyCODONE/APAP 10/325 1 TAB TABLET PO PRN (17:47)
[2020-10-15] MEDS: ONDANSETRON PF 4 MG/2 ML VIAL. IVP PRN (17:48)
[2020-10-15] MEDS ORDERED: FLUCONAZOLE 200MG/100ML PREMIX 100 ML IV SCH (18:00)
[2020-10-15] MEDS ORDERED: NON FORMULARY ITEM (Melatonin 2 TAB) PO PRN (18:30)
[2020-10-15] MEDS: POTASSIUM CHLORIDE 20 MEQ TABLET.ER. PO SCH ×2 (18:38→20:16)
[2020-10-15] MEDS ORDERED: MELATONIN 3 MG TABLET PO PRN (18:45)
[2020-10-15] MEDS: MAGNESIUM OXIDE 400 MG TABLET PO SCH ×2 (19:00→20:43)
[2020-10-15 19:46] VITALS: BP 97/65
[2020-10-15] MEDS: GABAPENTIN 300 MG CAPSULE. PO SCH (20:42)
[2020-10-15] MEDS: FLUDROCORTISONE 0.1 MG TABLET PO SCH (20:42)
[2020-10-15] MEDS: ALPRAZolam 0.25 MG TABLET PO SCH (20:42)
[2020-10-15] MEDS: ASPIRIN 325 MG TABLET PO SCH (20:42)
[2020-10-15] MEDS: MULTIVITAMIN with MINERAL TABLET. PO SCH (20:42)
[2020-10-15] MEDS: SPIRONOLACTONE 25 MG TABLET PO SCH (20:43)
[2020-10-15] MEDS: guaiFENesin/PS-EPHED 600/60MG 1 TAB TAB.ER.12H PO SCH (20:43)
[2020-10-15] MEDS: BACLOFEN 20 MG TABLET PO SCH (20:43)
[2020-10-15] MEDS: HYDROCORTISONE 10 MG TABLET PO SCH (20:43)
[2020-10-15] MEDS: METHENAMINE HIPPURATE 1 GM TABLET PO SCH (20:43)
[2020-10-15] MEDS: TORSEMIDE 20 MG TABLET. PO SCH (20:44)
[2020-10-15] MEDS: TOPIRAMATE 25 MG TABLET. PO SCH (20:44)
[2020-10-15] MEDS: DULoxetine HCL 60 MG CAPSULE.DR PO SCH (20:44)
[2020-10-15] MEDS ORDERED: traZODone 150 MG TABLET. PO SCH (21:00)
[2020-10-15] MEDS ORDERED: MIRTAZAPINE 30 MG TABLET PO SCH (21:00)
[2020-10-15] MEDS ORDERED: NON FORMULARY ITEM (Melatonin 2 TAB) PO SCH (21:00)
[2020-10-15 21:49] VITALS: BP 90/48
[2020-10-15 22:49] VITALS: BP 86/50
[2020-10-16] MEDS ORDERED: IV NORMAL SALINE 1,000ML 1,000 ML IV ONE (01:30)
--- NOTE | 2020-10-16 05:42 | HP ---
ADMIT DATE: 10/15/2020 HISTORY OF PRESENT ILLNESS: The patient is a 44-year-old female patient, who presented to the Emergency Room with a complaint of fatigue. She stated that she has all symptoms started about a week ago. She stated that she was helping her daughter care for her 3 kids and has progressively been feeling more fatigued. On Wednesday, she could no longer care for the kids and slept approximately 20 hours, woke up feeling unrefreshed. She reports also she has not been eating appropriately or drinking appropriately. Reports that when she tries to eat her meal, she gags and describes her poor effort with eating due to not having any energy to do that. She has been on 2 antibiotics in the form of cefdinir and metronidazole prescribed by a nurse practitioner, who works for Dr. Castañeda. Had had multiple episodes of watery diarrhea. She is normally on 5 liters of oxygen, has been on that consistently with no increase in the oxygen requirement. She has no other medication changes beside the prescribed antibiotic noted. She was evaluated in the Emergency Room, and she was noted to have mild leukocytosis of 12,000 and has macrocytic anemia with hemoglobin of 9, hematocrit 29 and normal platelets. Her chemistry showed that her most lab works are within normal range. Her urinalysis, however, showed the urine was yellow, hazy with a pH of 8.5, specific gravity of 1.015. There is a small amount of protein. The urine was negative for glucose, ketones, small amount of blood, negative for nitrite, and that there was trace of leukocyte esterase with 20-40 rbc's, too numerous to count wbc's and no bacteria. The patient was admitted through the Emergency Room with UTI, generalized weakness and sepsis. Her urine and blood were sent for culture and sensitivity and was started on a broad-spectrum antibiotic in the form of piperacillin/tazobactam, was admitted for further evaluation and treatment. 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 She apparently has gastroparesis for which she underwent gastrectomy. Bronchial asthma, chronic obstructive pulmonary disease. She has mild stroke with left-sided weakness, hypertension, history of methicillin-resistant Staphylococcus aureus infection, lumbar spinal stenosis. She has had a history of C. diff colitis, pulmonary embolism, hemorrhoids, hiatal hernia, body image disorder, kidney stones, footdrop, anxiety, depression and tobacco use. She also has a history of acute on chronic diastolic congestive heart failure and history of acute kidney injury due to cardiorenal syndrome. PAST SURGICAL HISTORY: Significant for tonsillectomy, adenoidectomy, cholecystectomy, gastrectomy and multiple abdominal surgeries, history of PEG tube placement, ventral hernia repair and cyst excision, hysterectomy, most recently a right rotator cuff tear repair. ALLERGIES: SHE IS ALLERGIC TO SULFA DRUGS, CITRIC ACID AND SHELLFISH. FAMILY HISTORY: She has 2 brothers, both older and alive. Her older brother has diabetes and hypertension. Her younger brother has hypertension. His diabetes was ameliorated after he underwent bypass surgery. Her father is still alive at the age of 74. He is known to have a myocardial infarction and underwent 5-vessel coronary artery bypass graft surgery. Her mother is still alive at the age of 73, has had myocardial infarction for which she underwent PCI and stent deployment. SOCIAL HISTORY: She is , has 1 son. She smokes half a pack a day. She does not drink alcohol or use recreational drugs. 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 MEDICATIONS: She is currently on the following medications. She is on methenamine hippurate 1 tablet twice a day, baclofen 20 mg 3 times a day, spironolactone 25 mg twice a day, aspirin 325 mg twice a day, oxycodone/APAP 10/325 one tablet 4 times a day, gabapentin 300 mg 3 times a day, topiramate 50 mg twice a day, duloxetine 60 mg twice a day, mirtazapine 30 mg at bedtime, trazodone 150 mg at bedtime, alprazolam 0.25 mg twice a day, potassium chloride 20 mEq 3 times a day, torsemide 20 mg 3 times a day, guaifenesin/pseudoephedrine or Mucinex D extended release 600/60 one tablet twice a day, fluticasone propionate or Flonase 2 sprays to each nostril once a day, Protonix 40 mg 1 twice a day, fludrocortisone 300 mcg twice a day, hydrocortisone 20 mg twice a day, multivitamin 1 tablet twice a day, melatonin 20 mg at bedtime. REVIEW OF SYSTEMS: As per history of present illness. PHYSICAL EXAMINATION: GENERAL: When I examined her, she was somewhat pale, not jaundiced, cyanosis or thyromegaly. No jugular venous distention, no lower limb edema. VITAL SIGNS: Her heart rate was 105, blood pressure was 125/69, temperature was 98.6, respiratory rate 20 and oxygen saturation was 94%. HEAD, EYES, EARS, NOSE AND THROAT: Normocephalic, atraumatic. NECK: Supple. HEART: Showed normal first and second heart sounds. No gallop, murmur. CHEST: Clear to auscultation. No crepitation or rhonchi. She has a Port-A-Cath in the right infraclavicular fossa. ABDOMEN: Distended, soft, nontender, no guarding or rigidity. No organomegaly. All hernial orifice intact. The bowel sounds normal. She has a suprapubic catheter in place. NEUROLOGIC: She is awake, alert, responding appropriately. Cranial nerves intact. She moves extremities without difficulty. She has multiple wounds on her both lower extremities covered with dressing. It seems to be healing. LABORATORY DATA: Her lab work showed a white cell count 12,100, hemoglobin 9.1, hematocrit 29, MCV 108 and platelet count of 147,000. Her serum sodium 142, potassium 3.7, chloride 107, bicarb 27, anion gap of 8, BUN 16, creatinine 1.2. Estimated GFR was 48 mL per minute. Her glucose was 88. Lactic acid was only 0.7, calcium was 8.3. Total bilirubin, AST, ALT, alkaline phosphatase were normal. Her total protein was 5.6, albumin 3.1. Her urinalysis showed the urine was yellow, hazy with a pH of 8.5, specific gravity of 1.015, small amount of protein. The urine was negative for glucose, ketones, blood, nitrite and bilirubin. There is trace of leukocyte esterase, 20-40 rbc's, too numerous to count wbc's and no bacteria. She has yeast present in the urine. ASSESSMENT: The patient came in with vague complaint of generalized weakness and poor appetite and signs of dehydration, although her numbers really does not go with that. She had too numerous to count white cells in the urine, although she had just finished her treatment with Flagyl and cefdinir. She might have yeast urinary tract infection. We sent urine and blood for culture and sensitivity. She was started on Zosyn. PLAN: My plan is to reconcile all her medication, which are definitely excessive by all standard, although all my attempts to try and cut them down have so far failed. She is known to have congestive heart failure; therefore, I will not start her on any IV fluid, but I encouraged her to eat, drink as much as she wants. I also ordered stool for C. diff and once the result of the urine culture and sensitivity becomes available, might be able to deescalate the antibiotic and can be discharged home. RONALD/DONNY/OLIVER DR: Abebe TID: [id number]
[2020-10-16 06:35] VITALS: BP 97/64
[2020-10-16 07:01] LABS: HEMATOCRIT 29.7 % (36.0-47.0); HEMOGLOBIN 9.3 g/dL (12.0-15.5); RED BLOOD COUNT 2.79 x10^6/uL (3.50-5.40); RED CELL DISTRIBUTION WIDTH 17.3 % (11.5-14.5); WHITE BLOOD COUNT 6.2 x10^3/uL (4.0-11.0)
[2020-10-16 07:13] LABS: ALBUMIN 2.9 g/dL (3.4-5.0); CALCIUM 8.3 mg/dL (8.5-10.1); CREATININE 1.1 mg/dL (0.6-1.0); GFR 53.7; MAGNESIUM 2.2 mg/dL (1.8-2.4); POTASSIUM 3.9 mmol/L (3.5-5.1); TOTAL BILIRUBIN 0.2 mg/dL (0.2-1.0); TOTAL PROTEIN 5.8 g/dL (6.4-8.2)
[2020-10-16] MEDS: ALPRAZolam 0.25 MG TABLET PO SCH (07:48)
[2020-10-16] MEDS: TORSEMIDE 20 MG TABLET. PO SCH (07:48)
[2020-10-16] MEDS: GABAPENTIN 300 MG CAPSULE. PO SCH (07:49)
[2020-10-16] MEDS: SPIRONOLACTONE 25 MG TABLET PO SCH (07:49)
[2020-10-16] MEDS: ASPIRIN 325 MG TABLET PO SCH (07:49)
[2020-10-16] MEDS: TOPIRAMATE 25 MG TABLET. PO SCH (07:49)
[2020-10-16] MEDS: DULoxetine HCL 60 MG CAPSULE.DR PO SCH (07:49)
[2020-10-16] MEDS: POTASSIUM CHLORIDE 20 MEQ TABLET.ER. PO SCH (07:49)
[2020-10-16] MEDS: BACLOFEN 20 MG TABLET PO SCH (07:49)
[2020-10-16] MEDS: MULTIVITAMIN with MINERAL TABLET. PO SCH (07:49)
[2020-10-16] MEDS: MAGNESIUM OXIDE 400 MG TABLET PO SCH (07:50)
[2020-10-16] MEDS: VANCOMYCIN 125 MG/2.5 ML ORAL SOLUTION. PO SCH (07:50)
[2020-10-16] MEDS: FLUDROCORTISONE 0.1 MG TABLET PO SCH (08:00)
[2020-10-16] MEDS: HYDROCORTISONE 10 MG TABLET PO SCH (08:02)
[2020-10-16] MEDS: METHENAMINE HIPPURATE 1 GM TABLET PO SCH (08:02)
[2020-10-16] MEDS: guaiFENesin/PS-EPHED 600/60MG 1 TAB TAB.ER.12H PO SCH (08:02)
[2020-10-16] MEDS: oxyCODONE/APAP 10/325 1 TAB TABLET PO PRN (08:12)
[2020-10-16] MEDS: ONDANSETRON PF 4 MG/2 ML VIAL. IVP PRN (08:14)
[2020-10-16] MEDS ORDERED: PANTOPRAZOLE 40 MG TABLET. PO SCH (09:00)
--- NOTE | 2020-10-16 09:18 | NUR ---
PT IS DISCHARGED HOME WITH SELF CARE. PT IS STABLE AT TIME OF DISCHARGE. PT IS GIVEN ALL DISCHARGE AND FOLLOW UP INSTRUCTIONS. CLARISSA CATH IS DEACCESSED. PT IS W/C'D OFF OF UNIT ACCOMPANIED BY STAFF.
--- NOTE | 2020-10-17 05:38 | DS ---
DATE OF DISCHARGE: 10/16/2020 ATTENDING PHYSICIAN: Dr. Simon., Dr. Gonzalez. DATE OF ADMISSION: 10/15/2020 DATE OF DISCHARGE: 10/16/2020 FINAL DISCHARGE DIAGNOSES: 1. Generalized weakness, resolved. 2. Chronic obstructive pulmonary disease, oxygen dependent. Unfortunately, she continues to smoke. 3. Documented history of Benewah's disease, on supplemental corticosteroid therapy. 4. Gastroparesis. 5. History of bronchial asthma. 6. History of pulmonary embolism. 7. Underlying depression with anxiety. 8. Questionable compliance of meds. 9. Personality disorder. HISTORY OF PRESENT ILLNESS: The patient is an unfortunate 44-year-old female with multiple medical issues as well as psychiatric issues. She was admitted to the ED with vague symptoms of weakness, UTI. Clinically, she was not septic. She was admitted for further treatment and evaluation and cultures. HOSPITAL COURSE: Please refer to Dr. Simon's note. PHYSICAL EXAMINATION: Please see the dictated note. PERTINENT LABORATORY AND X-RAY STUDIES: On this admission, her hemoglobin was 9.3 g/dL. White count 6200. Chemistry panel: Sodium 142, potassium 3.7 mEq, creatinine 1.1 mg percent, nonfasting blood sugar 90. Liver panel unremarkable. Cardiac enzymes were negative. Serology negative for coronavirus. Chest x-ray was entirely clear. She has a Port-A-Cath in place. COURSE IN HOSPITAL: The patient was admitted. She was started on empiric antibiotics. Cultures were negative. She had no further diarrhea upon being in the hospital. Home medications were continued. Clearly, there is a psychiatric overlay. When I examined her the next day her vital signs were quite stable. She was afebrile, blood pressure was 100 mmHg systolic. Oxygen saturation adequate. She was at her baseline. At this time, she was discharged home with no changes in her medication. She should continue her alprazolam, aspirin, baclofen, Cymbalta, Florinef, fluticasone, Neurontin, guaifenesin, hydrocortisone, melatonin, methenamine, Remeron, multivitamin, oxycodone p.r.n., Protonix, trazodone. For now I have had her hold the torsemide. She will follow up with Dr. Castañeda as scheduled. She was discharged her from our hospital in stable condition with explicit instructions and followup care. NADEEM/BERENICE/TYRA DR: Angel TID: [id number] CC: Brando Castañeda
== END 2020-10-16 09:18 | disposition home or self-care (01) ==
LOC: ER 07:38 → INTOOBSV 10:17 → 1 SOUTH 10:17 → ER 11:32
PROVIDERS: ADMIT Internal Medicine; ATTEND Internal Medicine
DX: A41.9 Sepsis, unspecified organism (principal); Z20.822 Contact with and (suspected) exposure to COVID-19; J44.9 Chronic obstructive pulmonary disease, unspecified; K31.84 Gastroparesis; I11.0 Hypertensive heart disease with heart failure; R53.1 Weakness; I50.32 Chronic diastolic (congestive) heart failure; I95.9 Hypotension, unspecified; F17.210 Nicotine dependence, cigarettes, uncomplicated; N39.0 Urinary tract infection, site not specified; F60.9 Personality disorder, unspecified; I69.354 Hemiplegia and hemiparesis following cerebral infarction affecting left non-dominant side; F41.8 Other specified anxiety disorders; E27.1 Primary adrenocortical insufficiency; D53.9 Nutritional anemia, unspecified; Z90.49 Acquired absence of other specified parts of digestive tract; Z90.710 Acquired absence of both cervix and uterus; Z98.890 Other specified postprocedural states; Z86.711 Personal history of pulmonary embolism; Z86.19 Personal history of other infectious and parasitic diseases; Z86.14 Personal history of Methicillin resistant Staphylococcus aureus infection; Z87.442 Personal history of urinary calculi; Z99.81 Dependence on supplemental oxygen
CPT/HCPCS: 36415; 71045; 80053; 81001; 83605; 83735; 84484; 85025; 85027; 87040; 87086; 87106; 93005; 96361; 96365; 96367; 96375; 96376; 99291; G0378; J1450; J2405; J2543; J7030; J7040; U0003; U0005; G0379

== ENCOUNTER 2020-10-20 21:12 | Emergency (ER) | payer OTHER, MEDICAID ==
[~2020-10-20] VITALS: Ht 157.5 cm; Wt 85.2 kg
--- NOTE | 2020-10-20 21:26 | PHYS DOC ---
Past History Past Medical History: Asthma, CHF, COPD, Hypotension, MRSA, Stroke Additional Past Medical Histor: stroke, gastroparesis, spinal stenosis, anni disease, stroke (right side Past Surgical History: Cholecystectomy, Hysterectomy Additional Past Surgical Histo: suprapubic catheter, abdominal surgery, hernia repair, colectomy Smoking: Cigarettes Alcohol Use: None Drug Use: None General Adult HPI: HPI: " ... stated she fell out of bed.. and he put her back in.. but she just was not responding right.. very sedated,.,,,'' " She was reportedly normal at 1800.." " Her glucose wa 118 at scene..." " Reportedly seen in hospital recently for non- healling ulcer in legs and increased pain complaints. ... Pt taking oxycodone for pain. "( [employer]-) Patient is a 44 year old female who presents with above hx and mental status change. Patient on arrival taken to CT for evaluation. Patient was extremely sedate but would awaken with noxious stimuli. Would move all extremities with noxious stimuli. Patient had been taking some oxycodone and muscle relaxants for her chronic pain. Patient has history of nonhealing leg ulcers and chronic pain. 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 Patient has history of gastroparesis. P atient have history of bronchial asthma, COPD, TIAs and CVA, migraine headaches, hypertension, MRSA, lumbar spinal stenosis, hiatal hernia, kidney stones, foot drop, anxiety, depression, tobacco use, diastolic CHF, acute renal injury, cardiorenal syndrome, and UTIs. Patient's had multiple abdomen surgeries, gastric resection, , PEG placement, cholecystectomy, ventral hernia repair, cyst excisions, hysterectomy, and laparoscopic evaluations. Patient is also had history of right rotator cuff repair and tonsil adenoidectomy's, Pt. reportedly on medical disability due to her chronic illness, fibromyalgia, and Leming's disease. No recent significant ill contacts. No recent travel. Per . Review of Systems: Review of Systems: Review of systems limited because of patient's mental status Family History: Family History: There is family history of 2 brothers that are older. One brother has diabetes and hypertension. The younger brother has history of hypertension. Mother went underwent bypass surgery coronary artery disease. There is a history of myocardial infarct with mother was also treated with stent placement. Current Medications: Current Meds: See nursing for home meds Allergies: Allergies: Allergies Coded Allergies Type Severity Reaction Last Updated Verified Sulfa (Sulfonamide Antibiotics) Allergy Intermediate 02/15/20 Yes citric acid Allergy Intermediate 02/15/20 Yes honey Allergy Intermediate 02/16/20 Yes shellfish derived Allergy Intermediate 02/15/20 Yes Physical Exam: PE: Constitutional: no acute distress, appears to be overly sedated in appearance. [] HENT: Normocephalic, atraumatic, bilateral external ears normal, oropharynx moist, no oral exudates, nose normal. [] Eyes: PERRLA, EOMI, conjunctiva normal, no discharge. [] Neck: Normal range of motion, no tenderness, supple, no stridor. [] Cardiovascular:Heart rate regular rhythm, no murmur, PMI therapy for left. Lungs & Thorax: Bilateral breath sounds equal apex with few scattered wheezes and some bilateral basilar crackles on auscultation [] Abdomen: Bowel sounds decreased, soft, no tenderness, no masses, no pulsatile masses. Distended. Obese. Multiple abdomen surgery scars. Ellis. Skin: Warm, dry, no erythema, no rash. [] Back: No tenderness, no CVA tenderness. [] Extremities: Leg s wrapped in pressure dressings, moves all ext. with noxious stimuli., bilateral ankle edema. [] Rt shoulder scar. Neurologic: Patient very sedated in appearance, does cross react, does move all extremities with noxious stimuli. Will follow commands with noxious stimuli. Appears to have distal sensory function in all limbs., Patient requires repeat noxious stimuli and have her respond. [] Psychologic: Affect flat, mood depressed affect EKG: EKG: My interpretation EKG shows a sinus rhythm 89 bpm. There is a occasional PVC. There is leftward axis, no findings of acute STEMI or contralateral changes . Patient also did occasionally drop a QRS [] Radiology/Procedures: Radiology/Procedures: [][address] [address] IMAGING REPORT Signed PATIENT: ROSANGELA FLORENCE ACCOUNT: [id number] : 1975 LOCATION: ER AGE: 44 SEX: F EXAM STATUS: REG ER ORD. PHYSICIAN: ANTONELLA DUNNE MD REASON: UNRESPONSIVE, FALL PROCEDURE: CT HEAD AND CERVICAL SPINE WO Exam: CT head and cervical spine without contrast INDICATION: Unresponsive TECHNIQUE: Sequential axial images through the head and cervical spine were obtained without the administration of IV contrast. Exposure: One or more of the following in the visualized dose reduction techniques were utilized for this examination: 1. Automated exposure control 2. Adjustment of the MA and/or KV according to patient size 3. Use of iterative of reconstructive technique Comparisons: None FINDINGS: Head: No focal parenchymal lesion or hemorrhage is identified. There is no midline shift or sulcal effacement. No acute vascular territory infarction is identified. Peters-white distinction is preserved. The ventricular system is within normal limits without compression hydrocephalus. The basal cisterns are well maintained. The visualized portions of the paranasal sinuses and mastoid air cells are well-pneumatized. No acute fractures. Cervical spine: Vertebral body heights and alignment are well-maintained. Fracture to the cervical spine is is not identified. No significant spondylotic change in the cervical spine. Visualized paraspinal soft tissues are unremarkable. IMPRESSION: 1. No acute intracranial abnormality. 2. Negative CT C-spine for acute traumatic injury. Electronically signed by: Rian Raegan MD (10/20/2020 9:47 PM) [facility] DICTATED AND SIGNED BY: RIAN REAGAN MD DATE: 10/20/202144 CC: ANTONELLA DUNNE MD; GABRIEL DO MD ~MTH0 0 Heart Score: C/O Chest Pain: No HEART Score for Chest Pain: HEART Score for Chest Pain Response (Comments) Value History Moderately Suspicious 1 ECG Nonspecific Repolarizatio 1 Age >45 - < 65 1 Risk Factors 1 or 2 Risk Factors 1 Troponin < Normal Limit 0 Total 4 Risk Factors: Risk Factors: DM, Current or recent (<one month) smoker, HTN, HLP, family history of CAD, obesity. Risk Scores: Score 0 - 3: 2.5% MACE over next 6 weeks - Discharge Home Score 4 - 6: 20.3% MACE over next 6 weeks - Admit for Clinical Observation Score 7 - 10: 72.7% MACE over next 6 weeks - Early Invasive Strategies Course & Med Decision Making: Course & Med Decision Making Pertinent Labs and Imaging studies reviewed. (See chart for details) Patient was placed on BiPAP because of poor respiratory effort and depth with borderline saturations. This did improve her overall air movement. Patient's mentation gradually cleared in the emergency department, pt. did admit to using after sedation meds and muscle relaxants in excess.( Gabapentin, trazodone), . Was able to maintain alertness and follow responses to move extremities. Under direct questioning patient is unsure if she had been taking her Fludrocortine and Hydocortisone correctly and may have missed some dosages . Discussed presentation, hx, testing and tx. plan with Dr. Simon- Will accept pt in transfer to [facility]. Possible MRI, Pulmonary consults . Will cover for infection with Vancomycin, Solumedrol until Cortisone available. Continue Bipap support. Will give a dose of lovenox since CT shows no bleed and cover for DVT, PE until respiratory status can be further evaluated. CC 90 min. Impression: 1. Mental Status Change 2. Anemia Hgb 10.2 3. Dehydration 4. Elevated Creat. 1.7 5. Elevated D - Dimer 2.62 6. UTI 7. Hx of Addisons Dz 8. Combined metabolic and respiratory acidosis [] Dragon Disclaimer: Dragon Disclaimer: This electronic medical record was generated, in whole or in part, using a voice recognition dictation system. Departure Departure: Referrals: GABRIEL DO MD (PCP) ANTONELLA DUNNE MD October 20, 2020 21:26
[2020-10-20] MEDS ORDERED: IV RINGERS SOLUTION,LACTATED 1,000 ML IV SCH (21:30)
--- NOTE | 2020-10-20 21:47 | RAD ---
Exam: Chest one view INDICATION: Unresponsive TECHNIQUE: Frontal view of the chest Comparisons: 10/15/2020 FINDINGS: Right anterior chest wall port with catheter tip at the atrial caval junction. The cardiomediastinal silhouette and pulmonary vessels are within normal limits. The lung and pleural spaces are clear. IMPRESSION: No acute cardiopulmonary process. Electronically signed by: Rian Bermeo MD (10/20/2020 9:45 PM) [facility]
--- NOTE | 2020-10-20 21:49 | RAD ---
Exam: CT head and cervical spine without contrast INDICATION: Unresponsive TECHNIQUE: Sequential axial images through the head and cervical spine were obtained without the admi nistration of IV contrast. Exposure: One or more of the following in the visualized dose reduction techniques were utilized for this examination: 1. Automated exposure control 2. Adjustment of the MA and/or KV according to patient size 3. Use of iterative of reconstructive technique Comparisons: None FINDINGS: Head: No focal parenchymal lesion or hemorrhage is identified. There is no midline shift or sulcal effaceme nt. No acute vascular territory infarction is identified. Peters-white distinction is preserved. The ventricular system is within normal limits without compression hydrocephalus. The basal cisterns are well maintained. The visualized portions of the paranasal sinuses and mastoid air cells are well-pneumatized. No acute fractures. Cervical spine: Vertebral body heights and alignment are well-maintained. Fracture to the cervical spine is is not identified. No significant spondylotic change in the cervical spine. Visualized paraspinal soft tissues are unremarkable. IMPRESSION: 1. No acute intracranial abnormality. 2. Negative CT C-spine for acute traumatic injury. Electronically signed by: Rian Bermeo MD (10/20/2020 9:47 PM) [facility]
[2020-10-20 21:55] LABS: BASO # 0.1 x10^3/uL (0.0-0.2); BASO % 1 % (0-3); CREATININE 1.7 mg/dL (0.6-1.0); EOS # 0.2 x10^3/uL (0.0-0.7); EOS % 2 % (0-3); GFR 32.5; HEMATOCRIT 33.3 % (36.0-47.0); HEMOGLOBIN 10.2 g/dL (12.0-15.5); LYMPH # 1.7 x10^3/uL (1.0-4.8); LYMPH % 16 % (24-48); MEAN CORPUSCULAR HEMOGLOBIN 32 pg (25-35); MEAN CORPUSCULAR HGB CONC 31 g/dL (31-37); MEAN CORPUSCULAR VOLUME 106 fL (79-100); MONO # 0.5 x10^3/uL (0.0-1.1); MONO % 5 % (0-9); NEUT # 8.1 x10^3uL (1.8-7.7); NEUT % 77 % (31-73); PLATELET COUNT 178 x10^3/uL (140-400); POTASSIUM 3.9 mmol/L (3.5-5.1); RED BLOOD COUNT 3.16 x10^6/uL (3.50-5.40); RED CELL DISTRIBUTION WIDTH 16.3 % (11.5-14.5); WHITE BLOOD COUNT 10.6 x10^3/uL (4.0-11.0)
[2020-10-20 22:01] LABS: BARBITURATES NEG (NEG); BENZODIAZEPINES NEG (NEG); CANNABINOIDS NEG (NEG); COCAINE NEG (NEG); METHADONE NEG (NEG); OPIATES NEG (NEG); PHENCYCLIDINE NEG (NEG)
[2020-10-20 22:07] LABS: ALBUMIN 3.5 g/dL (3.4-5.0); CLARITY,URINE TURBID; COLOR,URINE ORANGE; DIRECT BILIRUBIN 0.1 mg/dL (0.0-0.2); MAGNESIUM 2.1 mg/dL (1.8-2.4); TOTAL BILIRUBIN 0.3 mg/dL (0.2-1.0); TOTAL PROTEIN 6.6 g/dL (6.4-8.2)
[2020-10-20 22:08] LABS: BACTERIA,URINE MANY /HPF (0-FEW); RBC,URINE 0 /HPF (0-2)
[2020-10-20 22:09] LABS: SQUAMOUS EPITHELIAL CELL,UR FEW /LPF
[2020-10-20 22:15] LABS: AMPHETAMINE/METHAMPHETAMINE NEG (NEG)
[2020-10-20 23:14] LABS: BGAS PH 7.27 (7.35-7.45)
[2020-10-21 00:09] VITALS: BP 143/83
[2020-10-21] MEDS ORDERED: methylPREDNISolone SOD SUCC PF 125 MG/2 ML VIAL. IV ONE (00:45)
[2020-10-21] MEDS ORDERED: ENOXAPARIN ** NOTE DOSE ** SYRINGE SQ ONE (00:45)
[2020-10-21] MEDS ORDERED: IV NORMAL SALINE 250ML 250 ML ONE (00:59)
[2020-10-21] MEDS ORDERED: VANCOMYCIN 1 GM VIAL. ONE (00:59)
[2020-10-21] MEDS ORDERED: SODIUM BICARB ADULT 8.4% 50 MEQ/50 ML DISP.SYRIN. IV ONE (01:00)
[2020-10-21] MEDS ORDERED: VANCOMYCIN 1 GM in IV NORMAL SALINE 250ML 250 ML IV ONE (01:00)
[2020-10-21 02:16] LABS: BGAS PH 7.29 (7.35-7.45)
--- NOTE | 2020-10-21 02:52 | EKG ---
[address] [address] Test Date: 2020-10-20 Test Time: 21:43:24 Pat Name: ROSANGELA FLORENCE Department: Room: Gender: F Core Carrier: PALMER : 1975 Requested By: ANTONELLA DUNNE Order Number: [id number] Reading MD: Measurements Intervals [place] Rate: 89 P: 33 NM: 128 QRS: -4 QRSD: 76 T: 32 QT: 380 QTc: 463 Interpretive Statements SINUS RHYTHM VENTRICULAR PREMATURE COMPLEX(ES) INTERPOLATED VENTRICULAR PREMATURE COMPLEX(ES) LEFTWARD AXIS ABNORMAL ECG RI6.02 No previous ECG available for comparison
== END 2020-10-21 04:02 | disposition short-term general hospital (02) ==
LOC: ER 21:12
DX: E87.2 Acidosis (principal); R41.82 Altered mental status, unspecified; D64.9 Anemia, unspecified; E86.0 Dehydration; R79.89 Other specified abnormal findings of blood chemistry; R79.1 Abnormal coagulation profile; N39.0 Urinary tract infection, site not specified; J44.9 Chronic obstructive pulmonary disease, unspecified; I11.0 Hypertensive heart disease with heart failure; I50.9 Heart failure, unspecified; G89.29 Other chronic pain; G43.909 Migraine, unspecified, not intractable, without status migrainosus; F41.9 Anxiety disorder, unspecified; F32.9 Major depressive disorder, single episode, unspecified; F17.210 Nicotine dependence, cigarettes, uncomplicated; Z86.73 Personal history of transient ischemic attack (TIA), and cerebral infarction without residual deficits; Z87.442 Personal history of urinary calculi
CPT/HCPCS: 36415; 36600; 70450; 71045; 72125; 80048; 80076; 80307; 81001; 82550; 82803; 82947; 83690; 83735; 83880; 84443; 84484; 85025; 85379; 85610; 85730; 87040; 87086; 87106; 93005; 94660; 96361; 96365; 96366; 96372; 96375; 99291; 99292; G0480; J1650; J2930; J3370; J7050; J7120

== ENCOUNTER 2020-11-17 16:03 | Emergency (ER) | payer OTHER, MEDICAID ==
[~2020-11-17] VITALS: Ht 160 cm; Wt 186.0 kg
[2020-11-17 16:03] VITALS: BP 89/47
--- NOTE | 2020-11-17 17:26 | PHYS DOC ---
Past History Past Medical History: No Pertinent History Additional Past Medical Histor: stroke, gastroparesis, spinal stenosis, anni disease, stroke (right side (EVERETTE SANTOYO APRN) Past Surgical History: No Surgical History Additional Past Surgical Histo: suprapubic catheter, abdominal surgery, hernia repair, colectomy (EVERETTE SANTOYO APRN) Smoking: Cigarettes Alcohol Use: None Drug Use: None (EVERETTE SANTOYO APRN) General Adult EDM: Chief Complaint: FOOT INJURY PAIN HPI: HPI: Patient is a 44-year-old female presents with left foot pain after falling. Patient states she was sent in by her PCP to have an x-ray done of her foot because she is continued to have pain. Patient states she was attempting to help her put up a hose and tripped and fell. Patient takes oxycodone at home for pain is denying needing anything for pain at this time. (EVERETTE SANTOYO APRN) Review of Systems: Review of Systems: Constitutional: Denies fever or chills Eyes: Denies change in visual acuity HENT: Denies nasal congestion or sore throat Respiratory: Denies cough or shortness of breath Cardiovascular: Denies chest pain or edema GI: Denies abdominal pain, nausea, vomiting, bloody stools or diarrhea : Denies dysuria Musculoskeletal: Denies back pain or joint pain Integument: Swelling and bruising to left foot Neurologic: Denies headache, focal weakness or sensory changes Endocrine: Denies polyuria or polydipsia Lymphatic: Denies swollen glands Psychiatric: Denies depression or anxiety (EVERETTE SANTOYO APRN) Allergies: Allergies: Allergies Coded Allergies Type Severity Reaction Last Updated Verified Sulfa (Sulfonamide Antibiotics) Allergy Intermediate 02/15/20 Yes citric acid Allergy Intermediate 02/15/20 Yes honey Allergy Intermediate 02/16/20 Yes shellfish derived Allergy Intermediate 02/15/20 Yes (EVERETTE SANTOYO APRN) Physical Exam: PE: Constitutional: Well developed, well nourished, no acute distress, non-toxic appearance. [] HENT: Normocephalic, atraumatic, bilateral external ears normal, oropharynx moist, no oral exudates, nose normal. [] Eyes: PERRLA, EOMI, conjunctiva normal, no discharge. [] Neck: Normal range of motion, no tenderness, supple, no stridor. [] Cardiovascular:Heart rate regular rhythm, no murmur [] Lungs & Thorax: Bilateral breath sounds clear to auscultation [] Abdomen: Bowel sounds normal, soft, no tenderness, no masses, no pulsatile masses. [] Skin: Left foot swelling, bruising Back: No tenderness, no CVA tenderness. [] Extremities: Left foot tenderness, no cyanosis, no clubbing, ROM intact, no edema. [] Neurologic: Alert and oriented X 3, normal motor function, normal sensory function, no focal deficits noted. [] Psychologic: Affect normal, judgement normal, mood normal. [] (EVERETTE SANTOYO APRN) EKG: EKG: [] (EVERETTE SANTOYO APRN) Radiology/Procedures: Radiology/Procedures: []3 view left foot HISTORY: Pain status post fall AP lateral oblique views The visualized osseous structures appear normal. IMPRESSION: No acute findings. Electronically signed by: Stanford Rushing III, MD (11/17/2020 5:28 PM) [facility] (EVERETTE SANTOYO APRN) Heart Score: C/O Chest Pain: No Risk Factors: Risk Factors: DM, Current or recent (<one month) smoker, HTN, HLP, family histo ry of CAD, obesity. Risk Scores: Score 0 - 3: 2.5% MACE over next 6 weeks - Discharge Home Score 4 - 6: 20.3% MACE over next 6 weeks - Admit for Clinical Observation Score 7 - 10: 72.7% MACE over next 6 weeks - Early Invasive Strategies (EVERETTE SANTOYO APRN) Course & Med Decision Making: Course & Med Decision Making Pertinent Labs and Imaging studies reviewed. (See chart for details) [] 44-year-old female presents with left foot pain falling. X-ray ordered of left foot to rule out fracture. Patient's pedal pulses intact. Patient denying needing anything for pain . X-ray of left foot is negative for fracture. (EVERETTE SANTOYO APRN) Dragon Disclaimer: Dragon Disclaimer: This electronic medical record was generated, in whole or in part, using a voice recognition dictation system. (EVERETTE SANTOYO APRN) Attending Co-Sign The patient was seen and interviewed as well as examined at the bedside. The chart was reviewed. The case was discussed. Agree with the plan of care. (RICHARD GLOVER DO) Departure Departure: Impression: Primary Impression: Foot contusion Qualified Codes: S90.32XA - Contusion of left foot, initial encounter Disposition: HOME / SELF CARE / HOMELESS Condition: STABLE Referrals: GABRIEL DO MD (PCP) Patient Instructions: Foot Contusion, [id number] Additional Instructions: EMERGENCY DEPARTMENT GENERAL DISCHARGE INSTRUCTIONS Thank you for coming to [facility] (ED) today and trusting us with you care. We trust that you had a positivie experience in our Emergency Department. If you wish to speak to the department management, you may call the director at [phone]. YOUR FOLLOW UP INSTRUCTIONS ARE FOLLOWS: 1. Do you have a private Doctor? If you do not have a private doctor, please ask for a resource list of physicians or clinics that may be able to assist you with follow up care. 2. The Emergency Physician has interpreted your x-rays. The X-Ray specialist will also review them. If there is a change in the findings, you will be notified in 48 hours when at all possible. 3. A lab test or culture has been done, your results will be reviewed and you will be notified if you need a change in treatment. ADDITIONAL INSTRUCTIONS AND INFORMATION: 1. Your care today has been supervised by a physician who is specially trained in emergency care. Many problems require more than one evaluation for a complete diagnosis and treatment. We recommend that you schedule your follow up appointment as recommended to ensure complete treatment of you illness or injury. If you are unable to obtain follow up care and continue to have a problem, or if your condition worsens, we recommend that you return to the ED. 2. We are not able to safely determine your condition over the phone nor are we able to give sound medical advice over the phone. For these safety reasons, if you call for medical advice we will ask you to come to the ED for further evaluation. 3. If you have any questions regarding these discharge instructions please call the ED at [phone]. SAFETY INFORMATION: In the interest of safety, wellness, and injury prevention; we encourage you to wear your sealbelt, if you smoke; quite smoking, and we encourage family to use a protective helmet for bicycling and other sporting events that present an increased risk for head injury. IF YOUR SYMPTOMS WORSEN OR NEW SYMPTOMS DEVELOP, OR YOU HAVE CONCERNS ABOUT YOUR CONDITION; OR IF YOUR CONDITION WORSENS WHILE YOU ARE WAITING FOR YOUR FOLLOW UP APPOINTMENT; EITHER CONTACT YOUR PRIMARY CARE DOCTOR, THE PHYSICIAN WHOSE NAME AND NUMBER YOU WERE GIVEN, OR RETURN TO THE ED IMMEDIATELY. EVERETTE SANTOYO APRN November 17, 2020 17:26 RICHARD GLOVER DO Nov 19, 2020 18:36
--- NOTE | 2020-11-17 17:30 | RAD ---
3 view left foot HISTORY: Pain status post fall AP lateral oblique views The visualized osseous structures appear normal. IMPRESSION: No acute findings. Electronically signed by: Stanford Rushing III, MD (11/17/2020 5:28 PM) [facility]
== END 2020-11-17 17:45 | disposition home or self-care (01) ==
LOC: ER 16:03
DX: S90.32XA Contusion of left foot, initial encounter (principal); F17.210 Nicotine dependence, cigarettes, uncomplicated; Z88.2 Allergy status to sulfonamides; Z91.013 Allergy to seafood; Z91.018 Allergy to other foods; W01.0XXA Fall on same level from slipping, tripping and stumbling without subsequent striking against object, initial encounter; Y93.89 Activity, other specified; Y92.89 Other specified places as the place of occurrence of the external cause; Y99.8 Other external cause status
CPT/HCPCS: 73630; 99284

== ENCOUNTER 2020-12-11 10:33 | Emergency (ER) | payer OTHER, MEDICAID ==
[~2020-12-11] VITALS: Ht 152.4 cm; Wt 91.4 kg
[~2020-12-11 10:33] MED LIST changes: +MIRT-8 PO; -MIRT30TA3 PO
--- NOTE | 2020-12-11 11:12 | PHYS DOC ---
Past History Past Medical History: No Pertinent History, COPD, CVA, Renal Failure Additional Past Medical Histor: stroke, gastroparesis, spinal stenosis, anni disease, stroke (right side Past Surgical History: Cholecystectomy Additional Past Surgical Histo: suprapubic catheter, abdominal surgery, hernia repair, colectomy, PORT Smoking: Cigarettes Additional Smoking Information: 1/2 PACK Alcohol Use: None Drug Use: None General Adult EDM: Chief Complaint: DIARRHEA HPI: HPI: Patient is a 50-year-old female presenting with 2 weeks of diarrhea. States is watery and nonbloody or melanous. States she has had clots before and she is taking Flagyl. States she is taking Flagyl and another antibiotic that she cannot recall for urinary tract infection. Patient has a history of an indwelling Ellis catheter. States she has had a couple episodes of nausea and vomiting. Denies any fevers, cough. No recent sick contacts or recent travel. Patient has not gotten her Covid vaccines. Review of Systems: Review of Systems: All other systems within normal limits except for as noted in the HPI Allergies: Allergies: Allergies Coded Allergies Type Severity Reaction Last Updated Verified Sulfa (Sulfonamide Antibiotics) Allergy Intermediate 02/15/20 Yes citric acid Allergy Intermediate 02/15/20 Yes honey Allergy Intermediate 02/16/20 Yes shellfish derived Allergy Intermediate 02/15/20 Yes Physical Exam: PE: Constitutional: Well developed, well nourished, no acute distress, non-toxic appearance. [] HENT: Normocephalic, atraumatic, bilateral external ears normal, nose normal. [] Eyes: PERRLA, conjunctiva normal, no discharge. [] Neck: No rigidity, supple, no stridor. [] Cardiovascular: Regular rate and rhythm, brisk cap refill [] Lungs & Thorax: Non labored symmetric respirations, no tachypnea or respiratory distress [] Abdomen: Soft, nondistended, no focal tenderness Ellis catheter in place. Skin: Warm, dry, no erythema, no rash. [] Back: Unremarkable Extremities: No deformities, range of motion grossly intact, no lower extremity edema [] Neurologic: Alert and oriented X 3, no focal deficits noted. [] Psychologic: Affect normal, judgement normal, mood normal. [] Current Patient Data: Vital Signs: Vital Signs Date Time Temp Pulse Resp B/P (MAP) Pulse Ox O2 Delivery O2 Flow Rate FiO2 12/11/20 10:45 98.7 92 20 106/68 (81) 94 Room Air EKG: EKG: [] Radiology/Procedures: Radiology/Procedures: [] Heart Score: C/O Chest Pain: No HEART Score for Chest Pain: HEART Score for Chest Pain Response (Comments) Value History Slighlty/Non-Suspicious 0 ECG Normal 0 Age >45 - < 65 1 Risk Factors 1 or 2 Risk Factors 1 Troponin < Normal Limit 0 Total 2 Risk Factors: Risk Factors: DM, Current or recent (<one month) smoker, HTN, HLP, family history of CAD, obesity. Risk Scores: Score 0 - 3: 2.5% MACE over next 6 weeks - Discharge Home Score 4 - 6: 20.3% MACE over next 6 weeks - Admit for Clinical Observation Score 7 - 10: 72.7% MACE over next 6 weeks - Early Invasive Strategies Course & Med Decision Making: Course & Med Decision Making Offered admission versus rehydration and discharge. Patient states she would like to try to go home after second liter of fluids and is feeling better. Dragon Disclaimer: Dragon Disclaimer: This electronic medical record was generated, in whole or in part, using a voice recognition dictation system. Departure Departure: Impression: Primary Impression: Diarrhea Additional Impression: Hypocalcemia Disposition: 01 HOME / SELF CARE / HOMELESS Condition: STABLE Referrals: GABRIEL DO MD (PCP) Patient Instructions: Diet for Diarrhea, Adult Additional Instructions: Take [id number] Imodium as directed on label for diarrhea KATY AYON MD Dec 11, 2020 11:12
[2020-12-11 11:51] LABS: BASO # 0.1 x10^3/uL (0.0-0.2); BASO % 1 % (0-3); EOS # 0.3 x10^3/uL (0.0-0.7); EOS % 3 % (0-3); HEMATOCRIT 26.6 % (36.0-47.0); LYMPH # 1.6 x10^3/uL (1.0-4.8); LYMPH % 16 % (24-48); MEAN CORPUSCULAR HEMOGLOBIN 34 pg (25-35); MEAN CORPUSCULAR HGB CONC 30 g/dL (31-37); MEAN CORPUSCULAR VOLUME 111 fL (79-100); MONO # 0.5 x10^3/uL (0.0-1.1); MONO % 5 % (0-9); NEUT # 7.6 x10^3uL (1.8-7.7); NEUT % 76 % (31-73); PLATELET COUNT 182 x10^3/uL (140-400); RED BLOOD COUNT 2.39 x10^6/uL (3.50-5.40); RED CELL DISTRIBUTION WIDTH 18.4 % (11.5-14.5)
[2020-12-11 12:10] LABS: CLARITY,URINE CLEAR; COLOR,URINE ORANGE
[2020-12-11 12:10] LABS: ALBUMIN 2.8 g/dL (3.4-5.0); CALCIUM 7.6 mg/dL (8.5-10.1); CREATININE 1.2 mg/dL (0.6-1.0); GFR 48.4; MAGNESIUM 2.2 mg/dL (1.8-2.4); PHOSPHORUS 2.4 mg/dL (2.6-4.7); POTASSIUM 3.9 mmol/L (3.5-5.1); TOTAL BILIRUBIN 0.4 mg/dL (0.2-1.0); TOTAL PROTEIN 5.5 g/dL (6.4-8.2)
[2020-12-11 12:11] LABS: BACTERIA,URINE 0 /HPF (0-FEW); HYALINE CASTS, URINE OCC /HPF; RBC,URINE OCC /HPF (0-2); SQUAMOUS EPITHELIAL CELL,UR OCC /LPF; YEAST,URINE PRESENT /HPF
[2020-12-11] MEDS ORDERED: IV NORMAL SALINE 1,000ML 1,000 ML IV ONE ×2 (13:15→13:45)
[2020-12-11 14:29] LABS: FECAL OB PT NEGATIVE (NEG)
[2020-12-11 14:42] LABS: ANISOCYTOSIS SLIGHT; PLT ESTIMATE ADEQUATE (ADEQUATE)
[2020-12-11] MEDS ORDERED: CALCIUM GLUCONATE 1,000 MG/10 ML VIAL IV ONE (14:45)
[2020-12-11 15:15] VITALS: BP 105/65
--- NOTE | 2020-12-13 22:08 | EKG ---
[address] [address] Test Date: 2020-12-11 Test Time: 11:27:10 Pat Name: ROSANGELA FLORENCE Department: Room: Gender: F Regulation Supervisor: : 1975 Requested By: KATY AYON Order Number: [id number] Reading MD: Measurements Intervals [place] Rate: 86 P: 32 SC: 130 QRS: 1 QRSD: 76 T: 13 QT: 362 QTc: 436 Interpretive Statements SINUS RHYTHM NORMAL ECG RI6.02 No previous ECG available for comparison
== END 2020-12-11 15:40 | disposition home or self-care (01) ==
LOC: ER 10:33
DX: E83.51 Hypocalcemia (principal); R19.7 Diarrhea, unspecified; R11.2 Nausea with vomiting, unspecified; J44.9 Chronic obstructive pulmonary disease, unspecified; N19 Unspecified kidney failure; Z86.73 Personal history of transient ischemic attack (TIA), and cerebral infarction without residual deficits; F17.210 Nicotine dependence, cigarettes, uncomplicated; Z90.49 Acquired absence of other specified parts of digestive tract; Z88.2 Allergy status to sulfonamides; Z91.013 Allergy to seafood; Z91.018 Allergy to other foods; Z88.8 Allergy status to other drugs, medicaments and biological substances
CPT/HCPCS: 36415; 80053; 81001; 82274; 83605; 83735; 83880; 84100; 84484; 85025; 87086; 87505; 93005; 96361; 96374; 99285; J0610; J7030; P9612

== ENCOUNTER 2021-01-15 19:49 | Inpatient (IN) | payer OTHER, MEDICAID ==
[~2021-01-15] VITALS: Ht 152.4 cm; Wt 88.5 kg
--- NOTE | 2021-01-15 20:34 | PHYS DOC ---
Past History Past Medical History: No Pertinent History, COPD, CVA, Renal Failure Additional Past Medical Histor: stroke, gastroparesis, spinal stenosis, anni disease, stroke (right side (EVERETTE SANTOYO APRN) Past Surgical History: Cholecystectomy Additional Past Surgical Histo: suprapubic catheter, abdominal surgery, hernia repair, colectomy, PORT (EVERETTE SANTOYO APRN) Smoking: Cigarettes Alcohol Use: None Drug Use: None (EVERETTE SANTOYO APRN) General Adult EDM: Chief Complaint: ALTERED MENTAL STATUS HPI: HPI: Patient is a 45-year-old female who presents for altered mental status. I asked patient why brought her and she stated "he said I was acting like I did not make sense again". Patient is alert and and oriented but slow to respond. Denies nausea/vomiting/diarrhea. Denying fever. Patient does report swelling to bilateral legs. (EVERETTE SANTOYO APRN) Review of Systems: Review of Systems: Constitutional: Denies fever or chills Eyes: Denies change in visual acuity HENT: Denies nasal congestion or sore throat Respiratory: Reports cough. Denies shortness of breath Cardiovascular: Denies chest pain or edema GI: Denies abdominal pain, nausea, vomiting, bloody stools or diarrhea : Denies dysuria Musculoskeletal: Denies back pain or joint pain Integument: Denies rash Neurologic: Denies headache, focal weakness or sensory changes Endocrine: Denies polyuria or polydipsia Lymphatic: Denies swollen glands Psychiatric: Denies depression or anxiety (EVERETTE SANTOYO APRN) Allergies: Allergies: Allergies Coded Allergies Type Severity Reaction Last Updated Verified Sulfa (Sulfonamide Antibiotics) Allergy Intermediate 02/15/20 Yes citric acid Allergy Intermediate 02/15/20 Yes honey Allergy Intermediate 02/16/20 Yes shellfish derived Allergy Intermediate 02/15/20 Yes (EVERETTE SANTOYO APRN) Physical Exam: PE: Constitutional: Well developed, well nourished, no acute distress, slow to respond, non-toxic appearance. [] HENT: Normocephalic, atraumatic, bilateral external ears normal, oropharynx moist, no oral exudates, nose normal. [] Eyes: PERRLA, EOMI, conjunctiva normal, no discharge. [] Neck: Normal range of motion, no tenderness, supple, no stridor. [] Cardiovascular:Heart rate regular rhythm, no murmur [] Lungs & Thorax: Bilateral breath sounds clear to auscultation [] Abdomen: Bowel sounds normal, soft, no tenderness, no masses, no pulsatile masses. [] Skin: Warm, dry, no erythema, no rash. [] Back: No tenderness, no CVA tenderness. [] Extremities: No tenderness, no cyanosis, no clubbing, ROM intact, no edema. [] Neurologic: Alert and oriented X 3, normal motor function, normal sensory function, no focal deficits noted. [] Psychologic: Affect normal, judgement normal, mood normal. [] (EVERETTE SANTOYO APRN) EKG: EKG: [] (EVERETTE SANTOYO APRN) Radiology/Procedures: Radiology/Procedures: []CT head without contrast: Reason for examination: Altered mental status. Comparison is made to previous study dated 11/07/2020. Helical images were obtained through the brain with no contrast administered. Exposure: One or more of the following individualized dose reduction techniques were utilized for this examination: 1. Automated exposure control 2. Adjustment of the mA and/or kV according to patient size 3. Use of iterative reconstruction technique. Ventricular systems are symmetric without abnormal dilatation. No midline shift is seen. There is no evidence of intracranial hemorrhage, infarct, mass or edema. No abnormalities of seen at the orbits. The paranasal sinuses and mastoid air cells are clear. No acute abnormality seen in the skull. IMPRESSION: No acute intracranial abnormality evident. Electronically signed by: Slime Baez MD (01/15/2021 10:07 PM) [facility] Exam: Chest one view INDICATION: Altered mental status, CHF TECHNIQUE: Frontal view of the chest Comparisons: 10/20/2020 FINDINGS: Right anterior chest wall port with catheter tip at the SVC. Heart is mildly enlarged. Pulmonary vessels are within normal limits. Strandy bibasilar airspace disease. No pleural effusion. IMPRESSION: Findings likely related to mild bibasilar atelectasis. Electronically signed by: Rian Bermeo MD (01/15/2021 9:46 PM) [facility] (EVERETTE SANTOYO APRN) Heart Score: C/O Chest Pain: No Risk Factors: Risk Factors: DM, Current or recent (<one month) smoker, HTN, HLP, family history of CAD, obesity. Risk Scores: Score 0 - 3: 2.5% MACE over next 6 weeks - Discharge Home Score 4 - 6: 20.3% MACE over next 6 weeks - Admit for Clinical Observation Score 7 - 10: 72.7% MACE over next 6 weeks - Early Invasive Strategies (EVERETTE SANTOYO APRN) Course & Med Decision Making: Course & Med Decision Making Pertinent Labs and Imaging studies reviewed. (See chart for details) [] 45-year-old female who presents with altered mental status. rep ortedly brought patient in due to her acting like she was not making sense. Patient is alert and oriented but very slow to respond. Patient is normally on 6 L nasal cannula at home. Patient was on room air on arrival and placed on oxygen. Patient does have a cough. Patient is also reporting bilateral lower leg edema. All labs are unremarkable. UA is positive for bacteria. Chest x-ray is suspicious for pneumonia. Patient given ceftriaxone, azithromycin, 0.9% NS at 75mls per hour. Patient is still slow to respond. Patient given 0.4 of Narcan, VBG drawn. Spoke with Dr. Simon who is willing to accept patient on med telemetry. Patient's vitals are stable upon admission. (EVERETTE SANTOYO APRN) Course & Med Decision Making Did not see or evaluate patient. Agree with [employer]'s work-up and disposition per note (AARON HORN MD) Charon Disclaimer: Dragon Disclaimer: This electronic medical record was generated, in whole or in part, using a voice recognition dictation system. (EVERETTE SANTOYO APRN) Departure Departure: Impression: Primary Impression: UTI (urinary tract infection) Qualified Codes: N30.00 - Acute cystitis without hematuria Additional Impressions: Person under investigation for COVID-19 AMS (altered mental status) Qualified Codes: R41.82 - Altered mental status, unspecified Pneumonia Qualified Codes: J18.9 - Pneumonia, unspecified organism Disposition: 09 ADMITTED INPATIENT Admitting Physician: Lenin Simon (EVERETTE SANTOYO APRN) Condition: STABLE Referrals: GABRIEL DO MD (PCP) EVERETTE SANTOYO APRN Jan 15, 2021 20:34 AARON HORN MD Jan 16, 2021 00:41
[2021-01-15] MEDS ORDERED: KETOROLAC 30 MG/ML VIAL. ONE (20:56)
[2021-01-15 21:06] LABS: BASO % 1 % (0-3); EOS # 0.2 x10^3/uL (0.0-0.7); EOS % 2 % (0-3); HEMATOCRIT 25.1 % (36.0-47.0); HEMOGLOBIN 7.7 g/dL (12.0-15.5); LYMPH # 1.4 x10^3/uL (1.0-4.8); LYMPH % 17 % (24-48); MEAN CORPUSCULAR HEMOGLOBIN 34 pg (25-35); MEAN CORPUSCULAR HGB CONC 31 g/dL (31-37); MEAN CORPUSCULAR VOLUME 110 fL (79-100); MONO # 0.6 x10^3/uL (0.0-1.1); MONO % 7 % (0-9); NEUT # 6.2 x10^3uL (1.8-7.7); NEUT % 73 % (31-73); PLATELET COUNT 162 x10^3/uL (140-400); RED BLOOD COUNT 2.27 x10^6/uL (3.50-5.40); RED CELL DISTRIBUTION WIDTH 18.3 % (11.5-14.5); WHITE BLOOD COUNT 8.4 x10^3/uL (4.0-11.0)
--- NOTE | 2021-01-15 21:18 | EKG ---
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
[2021-01-15 21:19] LABS: CALCIUM 7.8 mg/dL (8.5-10.1); CREATININE 1.5 mg/dL (0.6-1.0); GFR 37.4; POTASSIUM 4.1 mmol/L (3.5-5.1)
[2021-01-15 21:24] LABS: ALBUMIN 3.2 g/dL (3.4-5.0); ALBUMIN/GLOBULIN RATIO 1.1 (1.0-1.7); TOTAL BILIRUBIN 0.4 mg/dL (0.2-1.0)
[2021-01-15 21:31] LABS: BILIRUBIN,URINE NEG (NEG); CLARITY,URINE HAZY; COLOR,URINE AMBER; GLUCOSE,URINE NEG (NEG)
[2021-01-15 21:32] LABS: NITRITE,URINE NEG (NEG); UROBILINOGEN,URINE 0.2 mg/dL (0.2 mg/dL)
[2021-01-15 21:34] LABS: BACTERIA,URINE FEW /HPF (0-FEW); BARBITURATES NEG (NEG); BENZODIAZEPINES NEG (NEG); CANNABINOIDS NEG (NEG); COCAINE NEG (NEG); METHADONE NEG (NEG); OPIATES POS (NEG); PHENCYCLIDINE NEG (NEG); WBC,URINE >40 /HPF (0-4); YEAST,URINE PRESENT /HPF
[2021-01-15 21:41] LABS: AMPHETAMINE/METHAMPHETAMINE NEG (NEG)
[2021-01-15 21:44] LABS: ANISOCYTOSIS SLIGHT; PLT ESTIMATE ADEQUATE (ADEQUATE)
[2021-01-15] MEDS ORDERED: FOSFOMYCIN TROMETHAMINE 3 GM PACKET PO ONE (21:45)
--- NOTE | 2021-01-15 21:49 | RAD ---
Exam: Chest one view INDICATION: Altered mental status, CHF TECHNIQUE: Frontal view of the chest Comparisons: 10/20/2020 FINDINGS: Right anterior chest wall port with catheter tip at the SVC. Heart is mildly enlarged. Pulmonary vessels are within normal limits. Strandy bibasilar airspace disease. No pleural effusion. IMPRESSION: Findings likely related to mild bibasilar atelectasis. Electronically signed by: Rian Bermeo MD (01/15/2021 9:46 PM) [facility]
--- NOTE | 2021-01-15 22:09 | RAD ---
CT head without contrast: Reason for examination: Altered mental status. Comparison is made to previous study dated 11/07/2020. Helical images were obtained through the brain with no contrast administered. Exposure: One or more of the following individualized dose reduction techniques were utilized for thi s examination: 1. Automated exposure control 2. Adjustment of the mA and/or kV according to patient size 3. Use of iterative reconstruction technique. Ventricular systems are symmetric without abnormal dilatation. No midline shift is seen. There is no evidence of intracranial hemorrhage, infarct, mass or edema. No abnormalities of seen at the orbits. The paranasal sinuses and mastoid air cells are clear. No acute abnormality seen in the skull. IMPRESSION: No acute intracranial abnormality evident. Electronically signed by: Slime Baez MD (01/15/2021 10:07 PM) [facility]
[2021-01-15] MEDS: IV NORMAL SALINE 1,000ML 1,000 ML IV SCH (23:15)
[2021-01-15] MEDS ORDERED: NALOXONE 0.4 MG/ML VIAL. IV ONE (23:30)
[2021-01-15] MEDS ORDERED: IV NORMAL SALINE 1,000ML 1,000 ML IV ONE (23:30)
[2021-01-15] MEDS ORDERED: AZITHROMYCIN 500 MG in IV NORMAL SALINE 250ML 250 ML IV ONE (23:30)
--- NOTE | 2021-01-15 23:43 | NUR ---
The patient, ROSANGELA FLORENCE, 45 y/o, F admitted by UMESH HOLCOMB MD, was given written information regarding hospital policies, unit procedures and contact persons. Valuables were checked and logged. Call light in reach.
[2021-01-16 03:05] VITALS: BP 100/54
[2021-01-16 07:00] VITALS: BP 100/54
[2021-01-16] MEDS ORDERED: FOSFOMYCIN TROMETHAMINE 3 GM PACKET PO ONE (08:00)
[2021-01-16] MEDS ORDERED: FLUTICASONE 50MCG/NASAL SPRAY 16GM BOTTLE. NS PRN (14:15)
[2021-01-16] MEDS: oxyCODONE/APAP 10/325 1 TAB TABLET PO PRN ×2 (15:28→19:50)
[2021-01-16] MEDS: IV NORMAL SALINE 1,000ML 1,000 ML IV SCH (15:28)
[2021-01-16 15:40] VITALS: BP 103/74
[2021-01-16] MEDS ORDERED: ONDANSETRON PF 4 MG/2 ML VIAL. IVP PRN (18:15)
[2021-01-16] MEDS: ASPIRIN 325 MG TABLET PO SCH (19:59)
[2021-01-16] MEDS: DULoxetine HCL 60 MG CAPSULE.DR PO SCH (19:59)
[2021-01-16] MEDS: POTASSIUM CHLORIDE 20 MEQ TABLET.ER. PO SCH (19:59)
[2021-01-16] MEDS: ALPRAZolam 0.25 MG TABLET PO SCH (19:59)
[2021-01-16] MEDS: MULTIVITAMIN with MINERAL TABLET. PO SCH (19:59)
[2021-01-16] MEDS: BACLOFEN 20 MG TABLET PO SCH (20:00)
[2021-01-16] MEDS: TORSEMIDE 20 MG TABLET. PO SCH (20:00)
[2021-01-16] MEDS: TOPIRAMATE 25 MG TABLET. PO SCH (20:00)
[2021-01-16] MEDS: GABAPENTIN 300 MG CAPSULE. PO SCH (20:00)
[2021-01-16] MEDS: SPIRONOLACTONE 25 MG TABLET PO SCH (20:00)
[2021-01-16 20:05] VITALS: BP 92/61
[2021-01-16] MEDS: FLUDROCORTISONE 0.1 MG TABLET PO SCH (20:10)
[2021-01-16] MEDS: HYDROCORTISONE 10 MG TABLET PO SCH (20:10)
[2021-01-16] MEDS: guaiFENesin/PS-EPHED 600/60MG 1 TAB TAB.ER.12H PO SCH (20:11)
[2021-01-16] MEDS: METHENAMINE HIPPURATE 1 GM TABLET PO SCH (20:11)
[2021-01-16] MEDS ORDERED: traZODone 150 MG TABLET. PO SCH (21:00)
[2021-01-16] MEDS ORDERED: MIRTAZAPINE 30 MG TABLET PO SCH (21:00)
[2021-01-16] MEDS ORDERED: MELATONIN 3 MG TABLET PO SCH (21:00)
[2021-01-16 23:27] VITALS: BP 94/58
[2021-01-17 05:22] VITALS: BP 109/74
[2021-01-17] MEDS: oxyCODONE/APAP 10/325 1 TAB TABLET PO PRN ×2 (06:03→12:47)
--- NOTE | 2021-01-17 06:24 | NUR ---
Slept through the night except when awakened for nursing cares; requests for Percocet x2 during shift, effective for pain relief per statement; VSS; urine color has improved from dark brown/red to dark yellow straw with minimal sediment since this time 24 hrs prior with good volume output (over 1800ml); VSS; resting at present with no voiced needs or concerns, call santos in reach.
[2021-01-17 06:44] LABS: BASO % 1 % (0-3); EOS # 0.1 x10^3/uL (0.0-0.7); EOS % 2 % (0-3); HEMATOCRIT 26.6 % (36.0-47.0); HEMOGLOBIN 8.1 g/dL (12.0-15.5); LYMPH # 1.6 x10^3/uL (1.0-4.8); LYMPH % 26 % (24-48); MEAN CORPUSCULAR HEMOGLOBIN 33 pg (25-35); MEAN CORPUSCULAR HGB CONC 30 g/dL (31-37); MEAN CORPUSCULAR VOLUME 109 fL (79-100); MONO # 0.5 x10^3/uL (0.0-1.1); MONO % 8 % (0-9); NEUT # 3.9 x10^3uL (1.8-7.7); NEUT % 64 % (31-73); PLATELET COUNT 168 x10^3/uL (140-400); RED BLOOD COUNT 2.45 x10^6/uL (3.50-5.40); RED CELL DISTRIBUTION WIDTH 18.5 % (11.5-14.5); WHITE BLOOD COUNT 6.1 x10^3/uL (4.0-11.0)
[2021-01-17 06:55] LABS: ALBUMIN 2.9 g/dL (3.4-5.0); ALBUMIN/GLOBULIN RATIO 1.1 (1.0-1.7); CALCIUM 8.6 mg/dL (8.5-10.1); CREATININE 1.1 mg/dL (0.6-1.0); GFR 53.5; POTASSIUM 4.2 mmol/L (3.5-5.1); TOTAL BILIRUBIN 0.3 mg/dL (0.2-1.0); TOTAL PROTEIN 5.6 g/dL (6.4-8.2)
--- NOTE | 2021-01-17 06:59 | HP ---
ADMIT DATE: 01/15/2021 HISTORY OF PRESENT ILLNESS: The patient is a 45-year-old female patient who was brought to the Emergency Room by her with altered mental status. According to her , she was acting like she did not make any sense. By the time she arrived to the Emergency Room, she was alert and oriented, but slow to respond. Denied any complaint except swelling of both lower extremities and discomfort in her suprapubic area. She was extensively investigated and had, had lab work done as well as imaging studies including CT scan and chest x-ray. Her CT scan of the head showed no intracranial abnormality detected. Chest x-ray showed finding likely related to mild bibasilar atelectasis. Her urinalysis showed that the patient has large amount of leukocyte esterase, more than 40 wbc's and bacteria as well as yeast are present. Her toxic screen was positive for opiates; however, her coronavirus by PCR was negative. She was admitted with diagnosis of altered mental status, urinary tract infection and questionable pneumonia. She was treated with IV ceftriaxone as well as Zithromax. PAST MEDICAL HISTORY: Significant for [place]'s disease for which she is on hydrocortisone as well as fludrocortisone. She apparently has gastroparesis, for which she underwent gastrectomy, bronchial asthma, chronic obstructive pulmonary disease. She has mild stroke with left side weakness, hypertension, history of methicillin-resistant Staphylococcus aureus infection, lumbar spinal stenosis. She has a history of C. diff colitis, pulmonary embolism, hemorrhoids, hiatal hernia, disorder, kidney stones, footdrop, anxiety, depression and tobacco use. She has a history of acute on chronic diastolic congestive heart failure and history of acute kidney injury due to cardiorenal syndrome. PAST SURGICAL HISTORY: Significant for tonsillectomy and adenoidectomy, cholecystectomy, gastrectomy and multiple abdominal surgeries, history of PEG tube placement, ventral hernia repair and cyst excision, hysterectomy and most recently right rotator cuff repair. ALLERGIES: SHE IS ALLERGIC TO SULFA DRUGS, CITRIC ACID, AND SHELLFISH. FAMILY HISTORY: She has 2 brothers, both older and alive. Her older brother has diabetes and hypertension. Her younger brother has hypertension. His diabetes was ameliorated after he underwent bypass surgery. Her father is still alive at the age of 74. He is known to have myocardial infarction and underwent 6-vessel coronary artery bypass graft surgery. Her mother is still alive at the age of 73, has had myocardial infarction, for which she underwent PCI and stent deployment. SOCIAL HISTORY: She is , has one son. She smokes half a pack a day. She does not drink alcohol or recreational drugs. 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 REVIEW OF SYSTEMS: As per history of present illness. MEDICATIONS: She is currently on the following medication: She is on methenamine hippurate 1 gram twice a day, baclofen 20 mg 3 times a day, spironolactone 25 mg twice a day, aspirin 325 mg twice a day, oxycodone/APAP 10/325 one tablet 4 times a day as needed, gabapentin 300 mg 3 times a day, topiramate 50 mg twice a day. She is on Cymbalta 60 mg twice a day, mirtazapine 30 mg at bedtime. She is on trazodone 150 mg at bedtime, alprazolam 0.25 mg twice a day, potassium chloride 20 mEq, she takes 3 tablets 3 times a day. ____ 20 mg 3 times a day, guaifenesin/pseudoephedrine 600 mg twice a day, fluticasone propionate for Flonase one spray each nostril twice a day, Protonix 40 mg twice a day. Fludrocortisone 100 mcg, she takes 300 mcg twice a day. Hydrocortisone 20 mg twice a day, multivitamin one tablet once a day, melatonin 20 mg at bedtime. PHYSICAL EXAMINATION: GENERAL: On arrival to the Emergency Room, she looked well and was clearly in no apparent respiratory distress. She was somewhat pale, not no jaundiced or cyanosed. No lymphadenopathy, no thyromegaly, no jugular venous distention. No lower limb edema. VITAL SIGNS: Her heart rate was 84, blood pressure is 112/61, temperature was 98.6, respiratory rate was 20 and oxygen saturation was 90%. HEAD, EYES, EARS, NOSE, AND THROAT: Normocephalic, atraumatic. NECK: Supple. HEART: Showed normal first and second heart sounds. No gallop, rub or murmur. CHEST: Clear to auscultation. No crepitation or rhonchi. ABDOMEN: Distended, soft with suprapubic catheter in place. There is no tenderness. No guarding or rigidity. No organomegaly. All hernial orifice intact. Bowel sounds normal. NEUROLOGIC: She is awake, alert, responding appropriately, although very slow to respond. All her cranial nerves intact. She moves extremities without difficulty. LABORATORY DATA: On arrival showed a white cell count of 8400, hemoglobin 7.7, hematocrit 25, MCV 110, and platelet count of 162,000 with normal manual differential. Her serum sodium was 141, potassium 4.1, chloride 110, bicarbonate 21, anion gap of 10, BUN 20, creatinine 1.5. Estimated GFR was 37 mL per minute. Her glucose was 97. Lactic acid was 0.4, calcium was 7.8. Total bilirubin, AST, ALT, alkaline phosphatase were normal. Her total protein was 6, albumin was 3.2. Urinalysis showed the urine was yellow, with a pH of 5, specific gravity of 1.015. The urine was negative for protein, glucose, ketones, blood, nitrite and bilirubin, however, . The urine showed large amount of leukocyte esterase, more than 40 wbc's. Her toxic screen was positive for opiates only and her CT scan of the head was unremarkable and showed no acute intracranial abnormality. Her chest x-ray showed the patient has right anterior chest wall port with catheter tip at the superior vena cava. Heart is mildly enlarged. Pulmonary vessels are within normal limits. bibasilar airspace disease. No pleural effusion. ASSESSMENT AND PLAN: The patient was admitted with altered mental status, urinary tract infection as well as possible pneumonia. She was started on IV ceftriaxone and Zithromax. We will reconcile all her medications and follow her clinical response. She was also admitted as a PUI and kept in isolation and sent the COVID-19 by PCR to make sure if she is negative. JIA/VASYL DR: Abebe TID: [id number]
[2021-01-17] MEDS: ALPRAZolam 0.25 MG TABLET PO SCH (08:19)
[2021-01-17] MEDS: BACLOFEN 20 MG TABLET PO SCH (08:19)
[2021-01-17] MEDS: TOPIRAMATE 25 MG TABLET. PO SCH (08:19)
[2021-01-17] MEDS: POTASSIUM CHLORIDE 20 MEQ TABLET.ER. PO SCH (08:19)
[2021-01-17] MEDS: DULoxetine HCL 60 MG CAPSULE.DR PO SCH (08:19)
[2021-01-17] MEDS: ASPIRIN 325 MG TABLET PO SCH (08:20)
[2021-01-17] MEDS: MULTIVITAMIN with MINERAL TABLET. PO SCH (08:20)
[2021-01-17] MEDS: GABAPENTIN 300 MG CAPSULE. PO SCH (08:20)
[2021-01-17] MEDS: SPIRONOLACTONE 25 MG TABLET PO SCH (08:20)
[2021-01-17] MEDS: TORSEMIDE 20 MG TABLET. PO SCH (08:20)
[2021-01-17] MEDS: METHENAMINE HIPPURATE 1 GM TABLET PO SCH (08:21)
[2021-01-17] MEDS: HYDROCORTISONE 10 MG TABLET PO SCH (08:21)
[2021-01-17] MEDS: FLUDROCORTISONE 0.1 MG TABLET PO SCH (08:22)
[2021-01-17] MEDS: guaiFENesin/PS-EPHED 600/60MG 1 TAB TAB.ER.12H PO SCH (08:22)
[2021-01-17] MEDS ORDERED: PANTOPRAZOLE 40 MG TABLET. PO SCH (09:00)
[2021-01-17] MEDS ORDERED: AZITHROMYCIN 250 MG TABLET. PO SCH (09:00)
--- NOTE | 2021-01-17 09:39 | PN ---
DATE: 01/16/2021 SUBJECTIVE: The patient was admitted yesterday with altered mental status, was diagnosed with pneumonia as well as urinary tract infection. When I saw her this morning, she was definitely more awake, alert and responding appropriately. OBJECTIVE: GENERAL: On examining her, she is pale, but no jaundice, cyanosis or thyromegaly. No jugular venous distention. No lower limb edema. VITAL SIGNS: Her heart rate was 77, blood pressure 100/54, temperature was 97.4, respiratory rate was 16, and oxygen saturation was 94% on 6 liters of oxygen. HEAD, EYES, EARS, NOSE, AND THROAT: Normocephalic, atraumatic. NECK: Supple. HEART: Normal first and second heart sounds. No gallop or murmur. CHEST: Clear to auscultation. No crepitation or rhonchi. ABDOMEN: Distended, soft. There is suprapubic catheter in place. NEUROLOGIC: She is awake, alert and responsive. All cranial nerves are intact. She moves all extremities without difficulty. Her intake over the last 24 hours was 300, output was 3000. LABORATORY DATA: No lab work was done this morning. Her blood and urine culture are still pending at the time of this dictation. ASSESSMENT: 1. Altered mental status. 2. Community-acquired pneumonia. 3. Urinary tract infection. 4. Other medical problems include chronic obstructive pulmonary disease and [place]'s disease. PLAN: To continue with all her medications. Continue with IV antibiotic in the form of azithromycin and ceftriaxone. I will repeat her lab work tomorrow and adjust the antibiotic according to the culture and sensitivity. JANNET/OLIVER DR: Abebe TID: [id number]
[2021-01-17 11:53] VITALS: BP 108/73
[2021-01-17] MEDS ORDERED: AZIT250T PO (12:30)
--- NOTE | 2021-01-17 13:21 | DS ---
HOSPITAL COURSE: The patient is a 45-year-old female patient who was admitted through the Emergency Room with altered mental status. Further investigation showed that she has a possible community-acquired pneumonia as well as UTI. She did very well. Her mentation has improved. We did start her on IV Rocephin and Zithromax and she did very well. She has been afebrile since admission. Her white cell count was normal. Her blood and urine cultures are still pending at the time of this dictation and hemodynamically stable, afebrile. A decision was made to discharge her home with home health to continue on IV antibiotic and oral Zithromax. She will be discharged with home health and we will monitor her culture and we will notify them if there is any change, otherwise she will finish the course of treatment. PHYSICAL EXAMINATION: GENERAL: When I saw her this afternoon, she looked well and was clearly in no apparent respiratory distress. She was somewhat pale, but no jaundice, cyanosis, no lymphadenopathy, no thyromegaly, no jugular venous distention. No limb edema. VITAL SIGNS: Her heart rate was 85, blood pressure was 108/73, temperature was 98.5, respiratory rate was 20 and oxygen saturation was 96%. HEAD, EYES, EARS, NOSE, AND THROAT: Normocephalic, atraumatic. NECK: Supple. HEART: Normal first and second heart sounds, no gallop or murmur. She has a Port-A-Cath in the right infraclavicular fossa to the right internal jugular vein. CHEST: Shows central trachea, equal bilateral chest expansion, air entry, vesicular breath sounds. I could not really appreciate any crepitation or rhonchi. ABDOMEN: Distended, soft. Suprapubic catheter in place. NEUROLOGIC: She is grossly intact. The wounds in both legs have mostly resolved. She has one wound on the right heel that requires further wound care and she actually follows at the wound care clinic at [facility] and will be discharged with home health with nursing care to continue the IV antibiotic as well as the wound care. LABORATORY DATA: Her lab work this morning showed a white cell count of 6100, hemoglobin 8.1, hematocrit 26.6, MCV 109, and a platelet count of 168,000. Her chemistry showed a serum sodium of 141, potassium 4.2, chloride 109, bicarbonate 26, anion gap of 6, BUN 12, creatinine was 1.1. Estimated GFR was 53 mL per minute. Her glucose was 85, calcium was 8.56. Total bilirubin, AST, ALT, alkaline phosphatase were normal. Total protein was 5.6, albumin was 2.9. Toxic screen was positive for opiates and urine was positive for large amount of leukocyte esterase and more than 40 wbc's and few bacteria. DISCHARGE MEDICATIONS: The patient was discharged home with home health to continue on ceftriaxone 1 gram IV daily for 7 more days, Zithromax 250 mg once a day for 2 more days. She would continue also on alprazolam 0.5 mg twice a day, aspirin 325 mg twice a day, baclofen 20 mg 3 times a day, duloxetine for Cymbalta 60 mg twice a day, fludrocortisone acetate 300 mcg twice a day, Flonase 2 sprays to each nostril once a day, gabapentin 300 mg 3 times a day, Mucinex D 600/60 one tablet twice a day, hydrocortisone 20 mg twice a day, melatonin 20 mg once a day at bedtime, methenamine hippurate 1 gram twice a day, mirtazapine 30 mg at bedtime, multivitamin one tablet once a day, oxycodone/APAP 10/325 one tablet 4 times a day as needed, Protonix 40 mg once a day, potassium chloride 60 mEq 3 times a day, spironolactone 25 mg twice a day, topiramate 50 mg twice a day, torsemide 20 mg 3 times a day and trazodone 150 mg at bedtime. FINAL DISCHARGE DIAGNOSES: Altered mental status, resolved. Urinary tract infection. Questionable community-acquired pneumonia. [place]'s disease. Chronic obstructive pulmonary disease. CHUCK DR: Abebe TID: [id number]
--- NOTE | 2021-01-17 13:54 | NUR ---
DISCHARGE PT DISCHARGE INFORMATION REVIEWED WITH PATIENT. TAMIKO NGUYEN TO GIVE IV ABT AT HOME. PORT A CATH REMAINS ACCESSED FOR THEIR USE.
== END 2021-01-17 14:00 | disposition home health service (06) | DRG 177 ==
LOC: ER 19:49 → 1 SOUTH 23:01
PROVIDERS: ADMIT Internal Medicine; ATTEND Internal Medicine
DX: J15.6 Pneumonia due to other Gram-negative bacteria (principal); G92 Toxic encephalopathy; E27.1 Primary adrenocortical insufficiency; I13.0 Hypertensive heart and chronic kidney disease with heart failure and stage 1 through stage 4 chronic kidney disease, or unspecified chronic kidney disease; N30.00 Acute cystitis without hematuria; I50.32 Chronic diastolic (congestive) heart failure; J44.0 Chronic obstructive pulmonary disease with (acute) lower respiratory infection; J98.11 Atelectasis; J15.9 Unspecified bacterial pneumonia; F17.210 Nicotine dependence, cigarettes, uncomplicated; N18.9 Chronic kidney disease, unspecified; Z20.822 Contact with and (suspected) exposure to COVID-19; Z82.49 Family history of ischemic heart disease and other diseases of the circulatory system; Z83.3 Family history of diabetes mellitus; Z86.14 Personal history of Methicillin resistant Staphylococcus aureus infection; Z86.19 Personal history of other infectious and parasitic diseases; Z86.711 Personal history of pulmonary embolism; Z86.73 Personal history of transient ischemic attack (TIA), and cerebral infarction without residual deficits; Z87.442 Personal history of urinary calculi; Z90.710 Acquired absence of both cervix and uterus; Z93.1 Gastrostomy status; F32.9 Major depressive disorder, single episode, unspecified; F41.9 Anxiety disorder, unspecified
CPT/HCPCS: 36415; 70450; 71045; 80053; 80307; 81001; 82803; 83605; 83880; 84484; 85025; 87077; 87086; 93005; 96365; 96366; J0456; J0696; J2405; J7050; U0003; U0005; 99285-25; J7030

== ENCOUNTER 2021-01-31 11:44 | Emergency (ER) | payer OTHER, MEDICAID ==
[~2021-01-31] VITALS: Ht 152.4 cm; Wt 88.4 kg
[2021-01-31 12:08] VITALS: BP 111/75
[2021-01-31 12:44] LABS: BASO # 0.1 x10^3/uL (0.0-0.2); BASO % 1 % (0-3); EOS # 0.1 x10^3/uL (0.0-0.7); EOS % 1 % (0-3); HEMATOCRIT 26.8 % (36.0-47.0); HEMOGLOBIN 8.3 g/dL (12.0-15.5); LYMPH # 1.2 x10^3/uL (1.0-4.8); LYMPH % 11 % (24-48); MEAN CORPUSCULAR HEMOGLOBIN 31 pg (25-35); MEAN CORPUSCULAR HGB CONC 31 g/dL (31-37); MEAN CORPUSCULAR VOLUME 100 fL (79-100); MONO # 0.3 x10^3/uL (0.0-1.1); MONO % 3 % (0-9); NEUT % 83 % (31-73); PLATELET COUNT 186 x10^3/uL (140-400); RED BLOOD COUNT 2.69 x10^6/uL (3.50-5.40); RED CELL DISTRIBUTION WIDTH 17.4 % (11.5-14.5); WHITE BLOOD COUNT 10.7 x10^3/uL (4.0-11.0)
[2021-01-31 12:54] LABS: CREATININE 2.2 mg/dL (0.6-1.0); POTASSIUM 3.9 mmol/L (3.5-5.1)
[2021-01-31 13:00] LABS: ALBUMIN 3.3 g/dL (3.4-5.0); ALBUMIN/GLOBULIN RATIO 1.2 (1.0-1.7); TOTAL BILIRUBIN 0.3 mg/dL (0.2-1.0)
--- NOTE | 2021-01-31 13:03 | RAD ---
Exam Date: 01/31/2021 12:35 PM XR CHEST 1V Indication: Reason: pui / Spl. Instructions: / History: . Comparison: January 15, 2021 FINDINGS/ IMPRESSION: Right central venous catheter terminates in the SVC. The cardiac silhouette is borderline enlarged but unchanged. There is no focal consolidation, pleural effusion or pneumothorax. The visualized osseous structures are intact. Electronically signed by: Jose Maria MD (01/31/2021 1:01 PM) [id number]
--- NOTE | 2021-01-31 13:05 | RAD ---
Exam Date: 01/31/2021 12:35 PM XR FOOT_LEFT 3 VIEWS Indication: Reason: wound midshaft metatarsal rule out osteomyelitis / Spl. Instructions: / History: . FINDINGS/ IMPRESSION: Bones are diffusely osteopenic limits evaluation. [id number] degenerative changes are noted. Alignment is maintained. There is a cutaneous soft tissue defect lateral to the fifth metatarsal base suspicious for an ulcer. Soft tissue swelling suggests cellulitis. No definite osseous destructive changes are seen to conf irm acute osteomyelitis, though sensitivity for osteomyelitis is limited on radiographs. Mild calcan eal enthesopathy is present. No acute fracture or dislocation. Electronically signed by: Jose Maria MD (01/31/2021 1:03 PM) [id number]
--- NOTE | 2021-01-31 14:01 | PHYS DOC ---
Past History Past Medical History: No Pertinent History, COPD, CVA, Renal Failure Additional Past Medical Histor: stroke, gastroparesis, spinal stenosis, anni disease, stroke (right side (NELLIE RIVERO APRN) Past Surgical History: No Surgical History Additional Past Surgical Histo: suprapubic catheter, abdominal surgery, hernia repair, colectomy, PORT (NELLIE RIVERO APRN) Smoking: Cigarettes Alcohol Use: Rarely Drug Use: None (NELLIE RIVERO APRN) Adult General Chief Complaint Chief Complaint: MULTIPLE COMPLAINTS HPI HPI Patient is a 45-year-old female who presents to the emergency department stating her nurse practitioner told her to come in yesterday to get a Covid test, an x- ray of her left foot, a chest x-ray to evaluate her ongoing pneumonia, and to have her port access removed. Patient states she decided not to come in yesterday and thought it would be best to come in today as she has started a new antibiotic regimen of doxycycline and prednisone. Patient denies any chest pain, shortness of breath, cough, congestion, fever or chills at this time. Patient states she is here because her nurse practitioner Christianne Lim told her to be here. Patient denies any other physical complaints or physical concerns. (NELLIE RIVERO APRN) Review of Systems Review of Systems 14 body systems of review of systems have been reviewed. See HPI for pertinent positives and negative responses, otherwise all other systems are negative, nonpertinent or noncontributory. Constitutional: Negative except as outlined in HPI above. Skin: Negative except as outlined in HPI above. Eyes: Negative except as outlined in HPI above. HENT: Negative except as outlined in HPI above. Respiratory: Negative except as outlined in HPI above. Cardiovascular: Negative except as outlined in HPI above. GI: Negative except as outlined in HPI above. : Negative except as outlined in HPI above. Musculoskeletal: Negative except as outlined in HPI above. Integument: Negative except as outlined in HPI above. Neurologic: Negative except as outlined in HPI above. Endocrine: Negative except as outlined in HPI above. Lymphatic: Negative except as outlined in HPI above. Psychiatric: Negative except as outlined in HPI above. (NELLIE RIVERO APRN) Allergies Allergies Allergies Coded Allergies Type Severity Reaction Last Updated Verified Sulfa (Sulfonamide Antibiotics) Allergy Intermediate 02/15/20 Yes citric acid Allergy Intermediate 02/15/20 Yes honey Allergy Intermediate 02/16/20 Yes shellfish derived Allergy Intermediate 02/15/20 Yes (NELLIE RIVERO APRN) Physical Exam Physical Exam Constitutional: Well developed, well nourished, no acute distress, non-toxic appearance. 45-year-old female in no apparent distress. HENT: Normocephalic, atraumatic. Eyes: Conjunctiva normal, no discharge. Neck: Normal range of motion, no stridor. Cardiovascular: No cyanosis appreciated, distal cap refill less than 2 seconds. Lungs & Thorax: Patient is in no respiratory distress, no audible adventitious lung sounds appreciated. Lung sounds clear to auscultation all lung tse, patient has Port-A-Cath accessed right anterior chest. No infectious process appreciated from access, patient has Bioclusive dressing over top. Abdomen: Nontender, no abnormalities noted. Patient does have suprapubic laine ter in place, no infectious process or purulent drainage appreciated. Urine draining into Ellis bag as expected. Skin: Warm, dry, no erythema, no rash. See extremity note for focused skin examination Back: No tenderness, no deformities. Extremities: No tenderness, no cyanosis, no clubbing, ROM intact, no edema. Left foot has dressing placed lateral aspect of mid fifth metatarsal, dressing clean, removed to reveal stage II pressure ulcer 2 cm in diameter. No lymphangitis appreciated. Neurologic: Alert and oriented X 3, normal motor function, normal sensory function, no focal deficits noted. Psychologic: Affect normal, judgement normal, mood normal. (NELLIE RIVERO APRN) Current Patient Data Vital Signs Vital Signs Date Time Temp Pulse Resp B/P (MAP) Pulse Ox O2 Delivery O2 Flow Rate FiO2 01/31/21 12:08 98.1 92 18 111/75 94 Lab Results Laboratory Tests Test 01/31/21 12:30 White Blood Count 10.7 x10^3/uL (4.0-11.0) Red Blood Count 2.69 x10^6/uL (3.50-5.40) L Hemoglobin 8.3 g/dL (12.0-15.5) L Hematocrit 26.8 % (36.0-47.0) L Mean Corpuscular Volume 100 fL (79-100) Mean Corpuscular Hemoglobin 31 pg (25-35) Mean Corpuscular Hemoglobin Concent 31 g/dL (31-37) Red Cell Distribution Width 17.4 % (11.5-14.5) H Platelet Count 186 x10^3/uL (140-400) Neutrophils (%) (Auto) 83 % (31-73) H Lymphocytes (%) (Auto) 11 % (24-48) L Monocytes (%) (Auto) 3 % (0-9) Eosinophils (%) (Auto) 1 % (0-3) Basophils (%) (Auto) 1 % (0-3) Neutrophils # (Auto) 9.0 x10^3uL (1.8-7.7) H Lymphocytes # (Auto) 1.2 x10^3/uL (1.0-4.8) Monocytes # (Auto) 0.3 x10^3/uL (0.0-1.1) Eosinophils # (Auto) 0.1 x10^3/uL (0.0-0.7) Basophils # (Auto) 0.1 x10^3/uL (0.0-0.2) Sodium Level 142 mmol/L (136-145) Potassium Level 3.9 mmol/L (3.5-5.1) Chloride Level 105 mmol/L (98-107) Carbon Dioxide Level 29 mmol/L (21-32) Anion Gap 8 (6-14) Blood Urea Nitrogen 30 mg/dL (7-20) H Creatinine 2.2 mg/dL (0.6-1.0) H Estimated GFR (Cockcroft-Gault) 24.0 BUN/Creatinine Ratio 14 (6-20) Glucose Level 102 mg/dL (70-99) H Calcium Level 8.0 mg/dL (8.5-10.1) L Total Bilirubin 0.3 mg/dL (0.2-1.0) Aspartate Amino Transferase (AST) 16 U/L (15-37) Alanine Aminotransferase (ALT) 20 U/L (14-59) Alkaline Phosphatase 69 U/L (46-116) Total Protein 6.0 g/dL (6.4-8.2) L Albumin 3.3 g/dL (3.4-5.0) L Albumin/Globulin Ratio 1.2 (1.0-1.7) (NELLIE RIVERO APRN) EKG EKG [] (NELLIE RIVERO APRN) Radiology/Procedures Radiology/Procedures PATIENT: ROSANGELA FLORENCE ACCOUNT: [id number] : 1975 LOCATION: ER AGE: 45 SEX: F EXAM STATUS: REG ER ORD. PHYSICIAN: NELLIE RIVERO APRN REASON: wound midshaft metatarsal rule out osteomyelitis PROCEDURE: FOOT LEFT 3V Exam Date: 01/31/2021 12:35 PM XR FOOT_LEFT 3 VIEWS Indication: Reason: wound midshaft metatarsal rule out osteomyelitis / Spl. Instructions: / History: . FINDINGS/ IMPRESSION: Bones are diffusely osteopenic limits evaluation. Alap-wo-settwthr degenerative changes are noted. Alignment is maintained. There is a cutaneous soft tissue defect lateral to the fifth metatarsal base suspicious for an ulcer. Soft tissue swelling suggests cellulitis. No definite osseous destructive changes are seen to confirm acute osteomyelitis, though sensitivity for osteomyelitis is limited on radiographs. Mild calcaneal enthesopathy is present. No acute fracture or dislocation. XR CHEST 1V Indication: Reason: pui / Spl. Instructions: / History: . Comparison: January 15, 2021 FINDINGS/ IMPRESSION: Right central venous catheter terminates in the SVC. The cardiac silhouette is borderline enlarged but unchanged. There is no focal consolidation, pleural effusion or pneumothorax. The visualized osseous structures are intact. Electronically signed by: Jose Maria MD (01/31/2021 1:01 PM) [id number] (NELLIE RIVERO APRN) Heart Score C/O Chest Pain: No Risk Factors: Risk Factors: DM, Current or recent (<one month) smoker, HTN, HLP, family history of CAD, obesity. Risk Scores: Risk Factors: DM, Current or recent (<one month) smoker, HTN, HLP, family history of CAD, obesity. (NELLIE RIVERO APRN) Course & Med Decision Making Course & Med Decision Making Pertinent Labs and Imaging studies reviewed. (See chart for details) 45-year-old female, vital signs reviewed, presents to the emergency department concerning being told by nurse practitioner to show up to the emergency department for evaluation. Patient's physical examination unremarkable, will order chest x-ray, x-ray of the foot to rule out osteomyelitis, Covid testing, CBC, CMP. Patient chest x-ray unremarkable, left foot x-ray not concerning for osteomyelitis, labs unremarkable except for elevated creatinine of 2.2, upon review of patient's past history, creatinine levels fluctuate between 2.4 and 1.7, discussed with patient to follow-up with primary care for ongoing evaluation of creatinine levels, pending COVID-19 results, discussed findings with patient, patient states she is ready to go home. The patient's Port-A-Cath access was DC'd by ED nursing staff per hospital protocol. Discussed with the patient all findings and diagnostic testing as well as the need to follow-up with their primary care provider for further evaluation and treatment or return to the ED if any new or worsening symptoms. Strict return precautions were also discussed at length, the patient voiced understanding and agreement with the discharge planning. The patient was nontoxic in appearance, in no apparent distress, and hemodynamically stable at the time of disposition. (NELLIE RIVERO APRN) Dragon Disclaimer Dragon Disclaimer This electronic medical record was generated, in whole or in part, using a voice recognition dictation system. (NELLIE RIVERO APRN) Attending Co-Sign The patient was seen and interviewed as well as examined at the bedside. The chart was reviewed. The case was discussed. Agree with the plan of care. (RICHARD GLOVER DO) Departure Departure: Impression: Primary Impression: Person under investigation for COVID-19 Additional Impressions: Left foot infection Abnormal laboratory test result Disposition: HOME / SELF CARE / HOMELESS Condition: GOOD Referrals: GABRIEL DO MD (PCP) Additional Instructions: You were seen today in the emergency department under the direction of your nurse practitioner's guidance, the x-ray of your left foot was performed to evaluate your wound, there was no concerning signs of a bone infection, please keep your appointment with your 4 h youth development specialist for ongoing care of this foot wound, 8 chest x-ray was performed as you were worried you may have an ongoing pneumonia, there were no signs of pneumonia or other infectious process in your lungs as noted by the radiologist interpretation of your chest x-ray. You stated your nurse practitioner wanted you to have a COVID-19 test performed today, this test was obtained and as we discussed your results should be available within the next 48 hours. I have attached COVID-19 virus information to this document, please review. Please continue to practice social distancing and safe healthcare practices. As we discussed, your creatinine was slightly elevated today, it has been higher on past visits however please follow-up with your nurse practitioner for ongoing evaluation of your kidney function tests. Per your request, your Port-A-Cath was deaccessed today per [facility] protocol. Please return to the emergency room for worsening symptoms or other concerns. Thank you for visiting our Emergency Department. It was a pleasure taking care of you today in the emergency department and we appreciate you trusting us with your care. If any additional problems come up don't hesitate to return to visit us. Please follow up with your primary care provider so they can plan additional care if needed and know about the problem that you had. If symptoms worsen come back to the Emergency Department. Any concerning symptoms that start such as chest pain, shortness of air, weakness or numbness on one side of the body, running high fevers or any other concerning symptoms return to the ER. EMERGENCY DEPARTMENT GENERAL DISCHARGE INSTRUCTIONS Thank you for coming to [facility] (ED) today and trusting us with you care. We trust that you had a positivie experience in our Emergency Department. If you wish to speak to the department management, you may call the director at [phone]. YOUR FOLLOW UP INSTRUCTIONS ARE FOLLOWS: 1. Do you have a private Doctor? If you do not have a private doctor, please ask for a resource list of physicians or clinics that may be able to assist you with follow up care. 2. The Emergency Physician has interpreted your x-rays. The X-Ray specialist will also review them. If there is a change in the findings, you will be notified in 48 hours when at all possible. 3. A lab test or culture has been done, your results will be reviewed and you will be notified if you need a change in treatment. ADDITIONAL INSTRUCTIONS AND INFORMATION: 1. Your care today has been supervised by a physician who is specially trained in emergency care. Many problems require more than one evaluation for a complete diagnosis and treatment. We recommend that you schedule your follow up appointment as recommended to ensure complete treatment of you illness or injury. If you are unable to obtain follow up care and continue to have a problem, or if your condition worsens, we recommend that you return to the ED. 2. We are not able to safely determine your condition over the phone nor are we able to give sound medical advice over the phone. For these safety reasons, if you call for medical advice we will ask you to come to the ED for further evaluation. 3. If you have any questions regarding these discharge instructions please call the ED at [phone]. SAFETY INFORMATION: In the interest of safety, wellness, and injury prevention; we encourage you to wear your sealbelt, if you smoke; quite smoking, and we encourage family to use a protective helmet for bicycling and other sporting events that present an increased risk for head injury. IF YOUR SYMPTOMS WORSEN OR NEW SYMPTOMS DEVELOP, OR YOU HAVE CONCERNS ABOUT YOUR CONDITION; OR IF YOUR CONDITION WORSENS WHILE YOU ARE WAITING FOR YOUR FOLLOW UP APPOINTMENT; EITHER CONTACT YOUR PRIMARY CARE DOCTOR, THE PHYSICIAN WHOSE NAME AND NUMBER YOU WERE GIVEN, OR RETURN TO THE ED IMMEDIATELY. Problem Qualifiers NELLIE RIVERO APRN Jan 31, 2021 14:01 RICHARD GLVOER DO Feb 01, 2021 06:25
== END 2021-01-31 14:30 | disposition home or self-care (01) ==
LOC: ER 12:19
DX: L08.89 Other specified local infections of the skin and subcutaneous tissue (principal); R79.89 Other specified abnormal findings of blood chemistry; N19 Unspecified kidney failure; J44.9 Chronic obstructive pulmonary disease, unspecified; F17.210 Nicotine dependence, cigarettes, uncomplicated; Z20.822 Contact with and (suspected) exposure to COVID-19; Z86.73 Personal history of transient ischemic attack (TIA), and cerebral infarction without residual deficits; Z88.2 Allergy status to sulfonamides; Z91.013 Allergy to seafood; Z91.018 Allergy to other foods
CPT/HCPCS: 71045; 73630; 80053; 85025; 99284; C9803; U0003

== ENCOUNTER 2021-02-25 18:31 | Emergency (ER) | payer OTHER, MEDICAID ==
[~2021-02-25] VITALS: Ht 152.4 cm; Wt 88.4 kg
[~2021-02-25 18:31] MED LIST changes: +POTA-121 PO
[2021-02-25 19:25] VITALS: BP 104/68
[2021-02-25] MEDS ORDERED: FUROSEMIDE 40 MG/4 ML VIAL IVP ONE (19:30)
--- NOTE | 2021-02-25 20:01 | RAD ---
Study: XR CHEST 1V Indication: Shortness of breath. Comparison: 01/31/2021 Findings: Right chest wall Port-A-Cath with the tube tip terminating within the SVC. Unchanged configuration of the cardiomediastinal silhouette. No newly appreciated abnormality of the sydni. No lobar consolidation, layering effusion or pneumothorax. Several rib deformities on the left which were seen on the 07/06/2020 CT. Findings at the right should er girdle, at least in part postoperative, were present on the comparison. Impression: 1. No acute radiographic abnormality of the chest. Adequately positioned right chest wall Port-A-Cath . 2. Several rib deformities on the left and findings at the right shoulder girdle were seen previously . Electronically signed by: MAURICIO DURAN MD (02/25/2021 7:59 PM) [facility]
[2021-02-25] MEDS ORDERED: HYDROcodone/APAP 7.5/325MG 1 TAB TABLET PO ONE (20:30)
[2021-02-25 20:40] LABS: BASO # 0.1 x10^3/uL (0.0-0.2); BASO % 2 % (0-3); EOS # 0.2 x10^3/uL (0.0-0.7); EOS % 2 % (0-3); HEMATOCRIT 23.7 % (36.0-47.0); HEMOGLOBIN 7.2 g/dL (12.0-15.5); LYMPH % 30 % (24-48); MEAN CORPUSCULAR HEMOGLOBIN 31 pg (25-35); MEAN CORPUSCULAR HGB CONC 30 g/dL (31-37); MEAN CORPUSCULAR VOLUME 101 fL (79-100); MONO # 0.4 x10^3/uL (0.0-1.1); MONO % 7 % (0-9); NEUT # 3.9 x10^3uL (1.8-7.7); NEUT % 60 % (31-73); PLATELET COUNT 189 x10^3/uL (140-400); RED BLOOD COUNT 2.35 x10^6/uL (3.50-5.40); RED CELL DISTRIBUTION WIDTH 19.4 % (11.5-14.5); WHITE BLOOD COUNT 6.6 x10^3/uL (4.0-11.0)
[2021-02-25 20:44] LABS: CALCIUM 7.9 mg/dL (8.5-10.1); GFR 26.8; POTASSIUM 4.5 mmol/L (3.5-5.1)
[2021-02-25 20:56] LABS: ALBUMIN 3.3 g/dL (3.4-5.0); ALBUMIN/GLOBULIN RATIO 1.5 (1.0-1.7); TOTAL BILIRUBIN 0.3 mg/dL (0.2-1.0); TOTAL PROTEIN 5.5 g/dL (6.4-8.2)
[2021-02-25 21:15] LABS: BILIRUBIN,URINE NEG (NEG); CLARITY,URINE CLEAR; COLOR,URINE YELLOW; GLUCOSE,URINE 100 mg/dL (NEG); NITRITE,URINE POS (NEG); RBC,URINE 0 /HPF (0-2)
[2021-02-25 21:16] LABS: BACTERIA,URINE MANY /HPF (0-FEW)
--- NOTE | 2021-02-25 21:22 | PHYS DOC ---
Past History Past Medical History: No Pertinent History, COPD, CVA, Renal Failure Additional Past Medical Histor: stroke, gastroparesis, spinal stenosis, anni disease, stroke (right side (ANDRÉS WADDELL) Past Surgical History: No Surgical History Additional Past Surgical Histo: suprapubic catheter, abdominal surgery, hernia repair, colectomy, PORT (ANDRÉS WADDELL) Smoking: Cigarettes Alcohol Use: None Drug Use: None (ANDRÉS WADDELL) General Adult EDM: Chief Complaint: LOWER EXT PAIN Problems: (1) Bilateral lower extremity pain (ANDRÉS WADDELL) HPI: HPI: Patient is a 45 year old female with a history of CHF who presents with bilateral lower extremity pain and swelling. Patient states that her legs are swollen "2 times the normal size." She rates her pain 7 out of 10. She reports associated shortness of breath and facial swelling. She reports she is med compliant. (ANDRÉS WADDELL) Review of Systems: Review of Systems: Constitutional: Denies fever or chills HENT: Denies nasal congestion or sore throat Respiratory: See HPI Cardiovascular: Denies chest pain or palpitations GI: Denies abdominal pain, nausea, vomiting, bloody stools or diarrhea : Denies dysuria Musculoskeletal: See HPI Integument: Reports chronic cellulitis to bilateral lower extremities. Denies other rash Neurologic: Denies headache, focal weakness or sensory changes (ANDRÉS WADDELL) Current Medications: Current Meds: Current Medications Medications (Trade) Dose Ordered Sig/Mani Start Time Stop Time Status Last Admin Dose Admin Acetaminophen/ Hydrocodone Bitart (Lortab 7.5/325) 1 tab 1X ONCE 02/25/21 20:30 02/25/21 20:58 DC 02/25/21 20:33 1 TAB Furosemide (Lasix) 40 mg 1X ONCE 02/25/21 19:30 02/25/21 19:39 DC 02/25/21 20:33 40 MG (ANDRÉS WADDELL) Allergies: Allergies: Allergies Coded Allergies Type Severity Reaction Last Updated Verified Sulfa (Sulfonamide Antibiotics) Allergy Intermediate 02/15/20 Yes citric acid Allergy Intermediate 02/15/20 Yes honey Allergy Intermediate 02/16/20 Yes shellfish derived Allergy Intermediate 02/15/20 Yes (ANDRÉS WADDELL) Physical Exam: PE: Constitutional: Obese, no acute distress, non-toxic appearance. [] HENT: Normocephalic, atraumatic, bilateral external ears normal, oropharynx moist, no oral exudates, nose normal. [] Neck: Normal range of motion, no tenderness, supple, no stridor. [] Cardiovascular: Heart rate regular rhythm, no murmur [] Lungs & Thorax: Bilateral breath sounds clear to auscultation [] Abdomen: Bowel sounds normal, soft, no tenderness, no masses, no pulsatile masses. [] Skin: Stasis dermatitis present on bilateral lower extremities. [] Extremities: 1+ pitting edema on right lower extremity. 2+ pitting edema on left lower extremity. [] (ANDRÉS WADDELL) Current Patient Data: Labs: Laboratory Tests Test 02/25/21 20:19 02/25/21 20:40 White Blood Count 6.6 x10^3/uL (4.0-11.0) Red Blood Count 2.35 x10^6/uL (3.50-5.40) L Hemoglobin 7.2 g/dL (12.0-15.5) L Hematocrit 23.7 % (36.0-47.0) L Mean Corpuscular Volume 101 fL (79-100) H Mean Corpuscular Hemoglobin 31 pg (25-35) Mean Corpuscular Hemoglobin Concent 30 g/dL (31-37) L Red Cell Distribution Width 19.4 % (11.5-14.5) H Platelet Count 189 x10^3/uL (140-400) Neutrophils (%) (Auto) 60 % (31-73) Lymphocytes (%) (Auto) 30 % (24-48) Monocytes (%) (Auto) 7 % (0-9) Eosinophils (%) (Auto) 2 % (0-3) Basophils (%) (Auto) 2 % (0-3) Neutrophils # (Auto) 3.9 x10^3uL (1.8-7.7) Lymphocytes # (Auto) 2.0 x10^3/uL (1.0-4.8) Monocytes # (Auto) 0.4 x10^3/uL (0.0-1.1) Eosinophils # (Auto) 0.2 x10^3/uL (0.0-0.7) Basophils # (Auto) 0.1 x10^3/uL (0.0-0.2) Sodium Level 143 mmol/L (136-145) Potassium Level 4.5 mmol/L (3.5-5.1) Chloride Level 107 mmol/L (98-107) Carbon Dioxide Level 28 mmol/L (21-32) Anion Gap 8 (6-14) Blood Urea Nitrogen 21 mg/dL (7-20) H Creatinine 2.0 mg/dL (0.6-1.0) H Estimated GFR (Cockcroft-Gault) 26.8 BUN/Creatinine Ratio 11 (6-20) Glucose Level 98 mg/dL (70-99) Calcium Level 7.9 mg/dL (8.5-10.1) L Total Bilirubin 0.3 mg/dL (0.2-1.0) Aspartate Amino Transferase (AST) 21 U/L (15-37) Alanine Aminotransferase (ALT) 23 U/L (14-59) Alkaline Phosphatase 74 U/L (46-116) Troponin I Quantitative < 0.017 ng/mL (0-0.055) [id number]-S-Type Natriuretic Peptide 95 pg/mL (0-124) Total Protein 5.5 g/dL (6.4-8.2) L Albumin 3.3 g/dL (3.4-5.0) L Albumin/Globulin Ratio 1.5 (1.0-1.7) Urine Collection Type Unknown Urine Color Yellow Urine Clarity Clear Urine pH 7.0 Urine Specific Wood 1.015 Urine Protein Trace (NEG-TRACE) Urine Glucose (UA) 100 mg/dL (NEG) Urine Ketones (Stick) Neg mg/dL (NEG) Urine Blood Neg (NEG) Urine Nitrite Pos (NEG) Urine Bilirubin Neg (NEG) Urine Urobilinogen Dipstick 1.0 mg/dL (0.2 mg/dL) Urine Leukocyte Esterase Small (NEG) Urine RBC 0 /HPF (0-2) Urine WBC 11-20 /HPF (0-4) Urine Bacteria Many /HPF (0-FEW) Vital Signs: Vital Signs Date Time Temp Pulse Resp B/P (MAP) Pulse Ox O2 Delivery O2 Flow Rate FiO2 02/25/21 20:33 18 94 Nasal Cannula 5.0 02/25/21 19:25 98.4 107 104/68 (ANDRÉS WADDELL) EKG: EKG: EKG interpreted by Dr. Agarwal: Sinus rhythm rate 95. No ST elevation. Normal QRS interval. (ANDRÉS WADDELL) Radiology/Procedures: Radiology/Procedures: PROCEDURE: PORTABLE CHEST 1V Study: XR CHEST 1V Indication: Shortness of breath. Comparison: 01/31/2021 Findings: Right chest wall Port-A-Cath with the tube tip terminating within the SVC. Unchanged configuration of the cardiomediastinal silhouette. No newly appreciated abnormality of the sydni. No lobar consolidation, layering effusion or pneumothorax. Several rib deformities on the left which were seen on the 07/06/2020 CT. Findings at the right shoulder girdle, at least in part postoperative, were present on the comparison. Impression: 1. No acute radiographic abnormality of the chest. Adequately positioned right chest wall Port-A-Cath. 2. Several rib deformities on the left and findings at the right shoulder girdle were seen previously. Electronically signed by: MAURICIO DURAN MD (02/25/2021 7:59 PM) [facility] (ANDRÉS WADDELL) Heart Score: C/O Chest Pain: No (ANDRÉS WADDELL) Course & Med Decision Making: Course & Med Decision Making Pertinent Labs and Imaging studies reviewed. (See chart for details) On reevaluation, patient is asleep in bed. She is easily arousable. She states that she does feel better after the medications administered here in the emergency department. She was informed of a small amount of bacteria in her urine. She feels comfortable going home. She will be discharged with a prescription for antibiotics. (ANDRÉS WADDELL) Dragon Disclaimer: Dragon Disclaimer: This electronic medical record was generated, in whole or in part, using a voice recognition dictation system. (ANDRÉS WADDELL) Departure Departure: Impression: Primary Impression: UTI (urinary tract infection) Qualified Codes: N30.00 - Acute cystitis without hematuria Disposition: HOME / SELF CARE / HOMELESS Condition: STABLE Referrals: GABRIEL DO MD (PCP) Patient Instructions: Urinary Tract Infection, [id number] Additional Instructions: Please return to emergency department if your pain returns or becomes unmanageable. You may follow-up with your primary care provider if the urinary tract infection does not resolve. Scripts Cephalexin (KEFLEX) 500 Mg Capsule 1 CAP PO BID for UTI for 7 Days, #14 CAP Take 1 tablet by mouth twice per day for 7 days. Prov: ANDRÉS WADDELL 02/25/21 Attending Signature Attending Signature I have participated in the care of this patient and I have reviewed and agree with all pertinent clinical information above including history, exam, and recommendations. (ANTONELLA AGARWAL MD) ANDRÉS WADDELL Feb 25, 2021 21:22 ANTONELLA AGARWAL MD Feb 28, 2021 18:16
[2021-02-25] MEDS ORDERED: CEPH500C PO (22:45)
[2021-02-25] MEDS ORDERED: CEPHALEXIN 250 MG CAPSULE PO ONE (23:00)
--- NOTE | 2021-02-25 23:33 | EKG ---
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
== END 2021-02-25 23:07 | disposition home or self-care (01) ==
LOC: ER 18:31
DX: N30.00 Acute cystitis without hematuria (principal); M79.605 Pain in left leg; M79.604 Pain in right leg; I87.2 Venous insufficiency (chronic) (peripheral); N19 Unspecified kidney failure; J44.9 Chronic obstructive pulmonary disease, unspecified; F17.210 Nicotine dependence, cigarettes, uncomplicated; Z86.73 Personal history of transient ischemic attack (TIA), and cerebral infarction without residual deficits; Z88.2 Allergy status to sulfonamides; Z91.018 Allergy to other foods; Z91.013 Allergy to seafood; Z88.8 Allergy status to other drugs, medicaments and biological substances
CPT/HCPCS: 36415; 71045; 80053; 81001; 83880; 84484; 85025; 87086; 93005; 96374; 99285; J1940

== ENCOUNTER 2021-04-17 11:02 | Emergency (ER) | payer OTHER, MEDICAID ==
[~2021-04-17] VITALS: Ht 152.4 cm; Wt 88.4 kg
[~2021-04-17 11:02] MED LIST changes: -DULO60CA6 PO; +DULO60CA7 PO
[2021-04-17] MEDS ORDERED: OXYMETAZOLINE 0.05% NASAL SPRAY 30ML BOTTLE. NS ONE ×2 (11:30→12:00)
[2021-04-17 11:40] VITALS: BP 123/73
--- NOTE | 2021-04-17 11:53 | PHYS DOC ---
Past History Past Medical History: No Pertinent History, COPD, CVA, Renal Failure Additional Past Medical Histor: stroke, gastroparesis, spinal stenosis, anni disease, stroke (right side (EVERETTE SANTOYO APRN) Past Surgical History: No Surgical History Additional Past Surgical Histo: suprapubic catheter, abdominal surgery, hernia repair, colectomy, PORT (EVERETTE SANTOYO APRN) Smoking: Cigarettes Alcohol Use: None Drug Use: None (EVERETTE SANTOYO APRN) General Adult EDM: Chief Complaint: NOSEBLEED HPI: HPI: Patient is a 45-year-old female presents with nosebleed. \ Patient was on blood thinners a couple of weeks, but have not discontinued by her physician. patient takes a daily baby aspirin.Bleeding is controlled. Patient denies injury. Hist ory of CVA, COPD. (EVERETTE SANTOYO APRN) Review of Systems: Review of Systems: ROS At least 10 ROS systems have been reviewed and are negative except as documented in the HPI. General: Negative except as outlined in HPI above. Skin: Negative except as outlined in HPI above. HEENT: Negative except as outlined in HPI above. Neck: Negative except as outlined in HPI above. Respiratory: Negative except as outlined in HPI above.. Cardiovascular: Negative except as outlined in HPI above. Abdomen: Negative except as outlined in HPI above. : Negative except as outlined in HPI above. Back/MSK: Negative except as outlined in HPI above. Neuro: Negative except as outlined in HPI above. Psych: Negative except as outlined in HPI above. (EVERETTE SANTOYO APRN) Current Medications: Current Meds: Current Medications Medications (Trade) Dose Ordered Sig/Mani Start Time Stop Time Status Last Admin Dose Admin Oxymetazoline HCl (Afrin) 100 spray STK-MED ONCE 04/17/21 11:30 04/17/21 11:30 DC (EVERETTE SANTOYO APRN) Allergies: Allergies: Allergies Coded Allergies Type Severity Reaction Last Updated Verified Sulfa (Sulfonamide Antibiotics) Allergy Intermediate 02/15/20 Yes citric acid Allergy Intermediate 02/15/20 Yes honey Allergy Intermediate 02/16/20 Yes shellfish derived Allergy Intermediate 02/15/20 Yes (EVERETTE SANTOYO APRN) Physical Exam: PE: Constitutional: Well developed, well nourished, no acute distress, non-toxic appearance. [] HENT: Normocephalic, atraumatic, bilateral external ears normal, oropharynx moist, no oral exudates, nose normal. [] Eyes: PERRLA, EOMI, conjunctiva normal, no discharge. [] Neck: Normal range of motion, no tenderness, supple, no stridor. [] Cardiovascular:Heart rate regular rhythm, no murmur [] Lungs & Thorax: Bilateral breath sounds clear to auscultation [] Abdomen: Bowel sounds normal, soft, no tenderness, no masses, no pulsatile masses. [] Skin: Warm, dry, no erythema, no rash. [] Back: No tenderness, no CVA tenderness. [] Extremities: No tenderness, no cyanosis, no clubbing, ROM intact, no edema. [] Neurologic: Alert and oriented X 3, normal motor function, normal sensory function, no focal deficits noted. [] Psychologic: Affect normal, judgement normal, mood normal. [] (EVERETTE SANTOYO APRN) Current Patient Data: Vital Signs: Vital Signs Date Time Temp Pulse Resp B/P (MAP) Pulse Ox O2 Delivery O2 Flow Rate FiO2 04/17/21 11:40 98.4 113 16 123/73 (90) 95 Room Air (EVERETTE SANTOYO APRN) EKG: EKG: [] (EVERETTE SANTOYO APRN) Radiology/Procedures: Radiology/Procedures: [] (EVERETTE SANTOYO APRN) Heart Score: C/O Chest Pain: No Risk Factors: Risk Factors: DM, Current or recent (<one month) smoker, HTN, HLP, family history of CAD, obesity. Risk Scores: Score 0 - 3: 2.5% MACE over next 6 weeks - Discharge Home Score 4 - 6: 20.3% MACE over next 6 weeks - Admit for Clinical Observation Score 7 - 10: 72.7% MACE over next 6 weeks - Early Invasive Strategies (EVERETTE SANTOYO APRN) Course & Med Decision Making: Course & Med Decision Making Pertinent Labs and Imaging studies reviewed. (See chart for details) [] 45-year-old female who presents with nosebleed. Bleeding was controlled on arrival. Patient given Afrin. Discussed at home instructions if nose starts to bleed again. Discussed return precautions. She is hemodynamically stable upon disposition. (EVERETTE SANTOYO APRN) Adalid Disclaimer: Adalid Disclaimer: This electronic medical record was generated, in whole or in part, using a voice recognition dictation system. (EVERETTE SANTOYO APRN) Attending Co-Sign The patient was seen and interviewed as well as examined at the bedside. The chart was reviewed. The case was discussed. Agree with the plan of care. (RICHARD GLOVER DO) Departure Departure: Impression: Primary Impression: Bleeding nose Disposition: HOME / SELF CARE / HOMELESS Condition: STABLE Referrals: GABRIEL DO MD (PCP) Patient Instructions: Nosebleed, [id number] Additional Instructions: You are seen in the emergency room for a nosebleed. Your bleeding was controlled on arrival. Sending you home with Afrin. If bleeding continues, blow your nose, use Afrin and both naris. Hold pressure for 20 minutes. You can do this up to 3 times. If bleeding does not stop, return to the emergency room for further management. EMERGENCY DEPARTMENT GENERAL DISCHARGE INSTRUCTIONS Thank you for coming to [facility] (ED) today and trusting us with you care. We trust that you had a positivie experience in our Emergency Department. If you wish to speak to the department management, you may call the director at [phone]. YOUR FOLLOW UP INSTRUCTIONS ARE FOLLOWS: 1. Do you have a private Doctor? If you do not have a private doctor, please ask for a resource list of physicians or clinics that may be able to assist you with follow up care. 2. The Emergency Physician has interpreted your x-rays. The X-Ray specialist will also review them. If there is a change in the findings, you will be notified in 48 hours when at all possible. 3. A lab test or culture has been done, your results will be reviewed and you will be notified if you need a change in treatment. ADDITIONAL INSTRUCTIONS AND INFORMATION: 1. Your care today has been supervised by a physician who is specially trained in emergency care. Many problems require more than one evaluation for a complete diagnosis and treatment. We recommend that you schedule your follow up appointment as recommended to ensure complete treatment of you illness or injury. If you are unable to obtain follow up care and continue to have a problem, or if your condition worsens, we recommend that you return to the ED. 2. We are not able to safely determine your condition over the phone nor are we able to give sound medical advice over the phone. For these safety reasons, if you call for medical advice we will ask you to come to the ED for further evaluation. 3. If you have any questions regarding these discharge instructions please call the ED at [phone]. SAFETY INFORMATION: In the interest of safety, wellness, and injury prevention; we encourage you to wear your sealbelt, if you smoke; quite smoking, and we encourage family to use a protective helmet for bicycling and other sporting events that present an increased risk for head injury. IF YOUR SYMPTOMS WORSEN OR NEW SYMPTOMS DEVELOP, OR YOU HAVE CONCERNS ABOUT YOUR CONDITION; OR IF YOUR CONDITION WORSENS WHILE YOU ARE WAITING FOR YOUR FOLLOW UP APPOINTMENT; EITHER CONTACT YOUR PRIMARY CARE DOCTOR, THE PHYSICIAN WHOSE NAME AND NUMBER YOU WERE GIVEN, OR RETURN TO THE ED IMMEDIATELY. EVERETTE SANTOYO APRN Apr 17, 2021 11:53 RICHARD GLOVER DO Apr 18, 2021 06:12
== END 2021-04-17 12:04 | disposition home or self-care (01) ==
LOC: ER 11:02
DX: R04.0 Epistaxis (principal); J44.9 Chronic obstructive pulmonary disease, unspecified; F17.210 Nicotine dependence, cigarettes, uncomplicated; Z88.2 Allergy status to sulfonamides; Z86.73 Personal history of transient ischemic attack (TIA), and cerebral infarction without residual deficits
CPT/HCPCS: 99282

== ENCOUNTER 2021-05-06 17:51 | Inpatient (IN) | payer OTHER, MEDICAID ==
[~2021-05-06] VITALS: Ht 152.4 cm; Wt 93.2 kg
--- NOTE | 2021-05-06 19:34 | PHYS DOC ---
Past History Past Medical History: No Pertinent History, COPD, CVA, Renal Failure Additional Past Medical Histor: stroke, gastroparesis, spinal stenosis, anni disease, stroke (right side (ANDRÉS WADDELL) Past Surgical History: No Surgical History Additional Past Surgical Histo: suprapubic catheter, abdominal surgery, hernia repair, colectomy, PORT (ANDRSÉ WADDELL) Smoking: Cigarettes Alcohol Use: None Drug Use: None (ANDRÉS WADDELL) General Adult EDM: Chief Complaint: COUGH HPI: HPI: Patient is a 45 year old female with extensive medical history, well-known to the department who presents with increased fatigue, fever and bilateral lower extremity pain. Patient was seen at [facility] in the emergency department on Wednesday for shortness of breath and generalized fatigue. Patient states that her symptoms are worse since then. Her complaints include fever, fatigue, shortness of breath, cough, lower extremity pain/swelling/erythema. She denies chest pain, palpitations, hematuria. (ANDRÉS WADDELL) Review of Systems: Review of Systems: 12 systems reviewed. ROS negative except as mentioned in HPI. (ANDRÉS WADDELL) Allergies: Allergies: Allergies Coded Allergies Type Severity Reaction Last Updated Verified Sulfa (Sulfonamide Antibiotics) Allergy Intermediate 02/15/20 Yes citric acid Allergy Intermediate 02/15/20 Yes honey Allergy Intermediate 02/16/20 Yes shellfish derived Allergy Intermediate 02/15/20 Yes (ANDRÉS WADDELL) Physical Exam: PE: Constitutional: Obese, appears older than stated age, no acute distress, extremely fatigued. HENT: Normocephalic, atraumatic, bilateral external ears normal, oropharynx moist, no oral exudates, nose normal. Eyes: PERRLA, EOMI, conjunctiva normal, no discharge. Neck: Normal range of motion, no tenderness, supple, no stridor. Cardiovascular: Heart rate regular rhythm, no murmur. Lungs & Thorax: Breath sounds decreased diffuse. Abdomen: Bowel sounds normal, soft, no tenderness, no masses, no pulsatile masses. Skin: Bilateral lower extremities with edema and erythema, left lower leg swollen significantly more than right. Extremities: Bilateral lower legs tender and edematous, no cyanosis, no clubbing, ROM intact. Neurologic: Alert and oriented x4, no focal deficits noted. (ANDRÉS WADDELL) Current Patient Data: Labs: Laboratory Tests Test 05/06/21 19:03 05/06/21 19:04 White Blood Count 12.4 x10^3/uL (4.0-11.0) Red Blood Count 2.74 x10^6/uL (3.50-5.40) Hemoglobin 9.2 g/dL (12.0-15.5) Hematocrit 30.5 % (36.0-47.0) Mean Corpuscular Volume 111 fL (79-100) Mean Corpuscular Hemoglobin 33 pg (25-35) Mean Corpuscular Hemoglobin Concent 30 g/dL (31-37) Red Cell Distribution Width 17.0 % (11.5-14.5) Platelet Count 145 x10^3/uL (140-400) Neutrophils (%) (Auto) 79 % (31-73) Lymphocytes (%) (Auto) 15 % (24-48) Monocytes (%) (Auto) 5 % (0-9) Eosinophils (%) (Auto) 1 % (0-3) Basophils (%) (Auto) 0 % (0-3) Neutrophils # (Auto) 9.8 x10^3uL (1.8-7.7) Lymphocytes # (Auto) 1.8 x10^3/uL (1.0-4.8) Monocytes # (Auto) 0.6 x10^3/uL (0.0-1.1) Eosinophils # (Auto) 0.1 x10^3/uL (0.0-0.7) Basophils # (Auto) 0.1 x10^3/uL (0.0-0.2) Segmented Neutrophils % 76 % (35-66) Band Neutrophils % 4 % (0-9) Lymphocytes % 15 % (24-48) Monocytes % 3 % (0-10) Eosinophils % 2 % (0-5) Platelet Estimate Adequate (ADEQUATE) Macrocytosis Slight Sodium Level 140 mmol/L (136-145) Potassium Level 4.0 mmol/L (3.5-5.1) Chloride Level 107 mmol/L (98-107) Carbon Dioxide Level 25 mmol/L (21-32) Anion Gap 8 (6-14) Blood Urea Nitrogen 18 mg/dL (7-20) Creatinine 1.3 mg/dL (0.6-1.0) Estimated GFR (Cockcroft-Gault) 44.1 BUN/Creatinine Ratio 14 (6-20) Glucose Level 99 mg/dL (70-99) Lactic Acid Level 1.2 mmol/L (0.4-2.0) Calcium Level 8.4 mg/dL (8.5-10.1) Total Bilirubin 0.3 mg/dL (0.2-1.0) Aspartate Amino Transf (AST/SGOT) 15 U/L (15-37) Alanine Aminotransferase (ALT/SGPT) 17 U/L (14-59) Alkaline Phosphatase 74 U/L (46-116) Total Protein 6.1 g/dL (6.4-8.2) Albumin 3.3 g/dL (3.4-5.0) Albumin/Globulin Ratio 1.2 (1.0-1.7) Lipase 194 U/L (73-393) Urine Collection Type U cath Urine Color Bent Urine Clarity Clear Urine pH Urine Specific [place] Urine Protein (NEG-TRACE) Urine Glucose (UA) mg/dL (NEG) Urine Ketones (Stick) mg/dL (NEG) Urine Blood (NEG) Urine Nitrite (NEG) Urine Bilirubin (NEG) Urine Urobilinogen Dipstick mg/dL (0.2 mg/dL) Urine Leukocyte Esterase (NEG) Urine RBC 1-2 /HPF (0-2) Urine WBC 11-20 /HPF (0-4) Urine Squamous Epithelial Cells Few /LPF Urine Bacteria 0 /HPF (0-FEW) Urine Yeast Present /HPF Vital Signs: Vital Signs Date Time Temp Pulse Resp B/P (MAP) Pulse Ox O2 Delivery O2 Flow Rate FiO2 05/06/21 18:36 99.1 101 16 93/60 (71) 89 Room Air (ANDRÉS WADDELL) EKG: EKG: EKG Interpreted by Dr. Agarwal: Regular rate and rhythm 90 bpm with no ectopic beats. No concerning ST-T wave changes. (ANDRÉS WADDELL) Radiology/Procedures: Radiology/Procedures: PROCEDURE: PORTABLE CHEST 1V EXAM: CHEST ONE VIEW. HISTORY: Fever, shortness of breath, cough. COMPARISON: 02/25/2021. FINDINGS: A frontal view of the chest is obtained. A right-sided port catheter has its tip in the superior cavoatrial junction. There are mild interstitial opacities with a bibasilar predominance. These do not appear acute. The inspiration is small. There is no pneumothorax or pleural effusion. The heart is not enlarged. There are chronic left rib fractures. IMPRESSION: 1. Bibasilar scarring versus mild interstitial lung disease. No confluent infiltrates. Electronically signed by: Antonino Ortega MD (05/06/2021 9:00 PM) [id number] PROCEDURE: VENOUS LOWER EXTREMITY LEFT EXAM: Left lower extremity venous Doppler. HISTORY: Left lower extremity pain/swelling. COMPARISON: None. FINDINGS: Grayscale and Doppler analysis of the left lower extremity deep venous system was performed with graded compression and augmentation. The common femoral, greater saphenous, superficial femoral, popliteal and calf veins were assessed. There is no evidence of deep venous thrombosis. Subcutaneous edema is noted. IMPRESSION: 1. No evidence of deep venous thrombosis. Electronically signed by: Antonino Ortega MD (05/06/2021 10:38 PM) [facility] (ANDRÉS WADDELL) Heart Score: C/O Chest Pain: N/A (ANDRÉS WADDELL) Course & Med Decision Making: Course & Med Decision Making Pertinent Labs and Imaging studies reviewed. (See chart for details) Patient was seen by me at [facility] 3 days ago. Her condition seems to have deteriorated since that time. Her legs are erythematous and warm, she also is more fatigued. Her blood pressure on arrival and throughout her time in the department has been low. As her chest x-ray does not show signs of fluid overload, a 500 mL normal saline bolus was provided in the department. Additionally, she was given pain medication. Patient BP improved some with 500 mL bolus. Patient's CXR does not exhibit fluid overload, nor does her clinical appearance. Additional 500 mL (total 1L) bolus given. Patient will be admitted to Dr. Gonzalez for treatment of cellulitis as well as recurrent UTI. Med/tele bed requested. (ANDRÉS WADDELL) Dragon Disclaimer: Dragon Disclaimer: This electronic medical record was generated, in whole or in part, using a voice recognition dictation system. (ANDRÉS WADDELL) Departure Departure: Impression: Primary Impression: Bilateral lower leg cellulitis Additional Impressions: Chronic fatigue, unspecified Recurrent urinary tract infection Hypotension Qualified Codes: I95.9 - Hypotension, unspecified Disposition: ADMITTED INPATIENT Admitting Physician: Neville Goznalez (ANDRÉS WADDELL) Condition: GUARDED Referrals: GABRIEL DO MD (PCP) Attending Signature Attending Signature I have participated in the care of this patient and I have reviewed and agree with all pertinent clinical information above including history, exam, and recommendations. (ANTONELLA AGARWAL MD) ANDRÉS WADDELL May 06, 2021 19:34 ANTONELLA AGARWAL MD May 07, 2021 02:50
[2021-05-06 19:42] LABS: BASO # 0.1 x10^3/uL (0.0-0.2); BASO % 0 % (0-3); EOS # 0.1 x10^3/uL (0.0-0.7); EOS % 1 % (0-3); HEMATOCRIT 30.5 % (36.0-47.0); HEMOGLOBIN 9.2 g/dL (12.0-15.5); LYMPH # 1.8 x10^3/uL (1.0-4.8); LYMPH % 15 % (24-48); MEAN CORPUSCULAR HEMOGLOBIN 33 pg (25-35); MEAN CORPUSCULAR HGB CONC 30 g/dL (31-37); MEAN CORPUSCULAR VOLUME 111 fL (79-100); MONO # 0.6 x10^3/uL (0.0-1.1); MONO % 5 % (0-9); NEUT # 9.8 x10^3uL (1.8-7.7); NEUT % 79 % (31-73); PLATELET COUNT 145 x10^3/uL (140-400); RED BLOOD COUNT 2.74 x10^6/uL (3.50-5.40); WHITE BLOOD COUNT 12.4 x10^3/uL (4.0-11.0)
[2021-05-06 19:44] LABS: CALCIUM 8.4 mg/dL (8.5-10.1); CREATININE 1.3 mg/dL (0.6-1.0); GFR 44.1
[2021-05-06 19:50] LABS: ALBUMIN 3.3 g/dL (3.4-5.0); ALBUMIN/GLOBULIN RATIO 1.2 (1.0-1.7); TOTAL BILIRUBIN 0.3 mg/dL (0.2-1.0); TOTAL PROTEIN 6.1 g/dL (6.4-8.2)
[2021-05-06] MEDS ORDERED: IV NORMAL SALINE 500ML 500 ML IV ONE (20:00)
[2021-05-06 20:06] LABS: CLARITY,URINE CLEAR; COLOR,URINE ORANGE
[2021-05-06 20:07] LABS: BACTERIA,URINE 0 /HPF (0-FEW); SQUAMOUS EPITHELIAL CELL,UR FEW /LPF; YEAST,URINE PRESENT /HPF
[2021-05-06 20:29] LABS: % BANDS 4 % (0-9); % EOS 2 % (0-5); % LYMPHS 15 % (24-48); % MONOS 3 % (0-10); % SEGS 76 % (35-66); PLT ESTIMATE ADEQUATE (ADEQUATE)
--- NOTE | 2021-05-06 21:03 | RAD ---
EXAM: CHEST ONE VIEW. HISTORY: Fever, shortness of breath, cough. COMPARISON: 02/25/2021. FINDINGS: A frontal view of the chest is obtained. A right-sided port catheter has its tip in the sup erior cavoatrial junction. There are mild interstitial opacities with a bibasilar predominance. These do not appear acute. The i nspiration is small. There is no pneumothorax or pleural effusion. The heart is not enlarged. There a re chronic left rib fractures. IMPRESSION: 1. Bibasilar scarring versus mild interstitial lung disease. No confluent infiltrates. Electronically signed by: Antonino Ortega MD (05/06/2021 9:00 PM) [id number]
[2021-05-06] MEDS ORDERED: CIPROFLOXACIN 400MG PREMIX 200 ML IV ONE (21:45)
[2021-05-06] MEDS ORDERED: VANCOMYCIN 2 GM in IV NORMAL SALINE 500ML 500 ML IV ONE (22:15)
[2021-05-06] MEDS ORDERED: FUROSEMIDE 40 MG/4 ML VIAL IVP ONE (22:15)
--- NOTE | 2021-05-06 22:40 | RAD ---
EXAM: Left lower extremity venous Doppler. HISTORY: Left lower extremity pain/swelling. COMPARISON: None. FINDINGS: Grayscale and Doppler analysis of the left lower extremity deep venous system was performed with graded compression and augmentation. The common femoral, greater saphenous, superficial femoral , popliteal and calf veins were assessed. There is no evidence of deep venous thrombosis. Subcutaneous edema is noted. IMPRESSION: 1. No evidence of deep venous thrombosis. Electronically signed by: Antonino Ortega MD (05/06/2021 10:38 PM) [facility]
--- NOTE | 2021-05-06 23:20 | NUR ---
The patient, ROSANGELA FLORENCE, 45 y/o, F admitted by SCHUYLER HINES MD, was given written information regarding hospital policies, unit procedures and contact persons. Valuables were checked and logged. Call light at bedside.
[2021-05-07 00:34] VITALS: BP 97/65
[2021-05-07 05:27] VITALS: BP 99/68
[2021-05-07] MEDS: VANCOMYCIN PER PHARMACY MC PRN (07:31)
--- NOTE | 2021-05-07 07:34 | EKG ---
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
--- NOTE | 2021-05-07 07:36 | NUR ---
Pharmacy Vancomycin Dosing Note S:Consulted to monitor and dose vancomycin started 05/06/21. O:ROSANGELA FLORENCE is a 45 year old F with cellulitis Height: 5 feet, 0 inches Weight: 93.2 kg Dosing Weight: Actual Other Antibiotics: LEVOFLOXACIN 750MG LABS: Last BUN: 18 Last Creatinine: 1.3 Creatinine Clearance: 55ML/MIN Last WBC: 12.4 First dose given 05/06/21 at 2345 Vancomycin Dosing: Loading Dose: 2000 mg x1 Dosing Weight: Actual Target Trough: 10-20 A: Based on: cellulitis, using actual weight and history of vancomycin use. P: 1. Begin Vancomycin 1500 mg IV q24h 2. Follow up Trough level on 05/08/21 at 2230 3. Pharmacy will continue to monitor, follow and adjust therapy as needed. SURAJ MORGAN, 05/07/21 0737
[2021-05-07 07:49] VITALS: BP 105/67
[2021-05-07] MEDS ORDERED: FLUTICASONE 50MCG/NASAL SPRAY 16GM BOTTLE. NS PRN (08:00)
[2021-05-07] MEDS ORDERED: guaiFENesin/PS-EPHED 600/60MG 1 TAB TAB.ER.12H PO SCH (09:00)
[2021-05-07] MEDS ORDERED: AZITHROMYCIN 250 MG TABLET. PO SCH (09:00)
[2021-05-07] MEDS ORDERED: NON FORMULARY ITEM (Cephalexin (Keflex) 1 CAP) PO SCH (09:00)
[2021-05-07] MEDS: GABAPENTIN 300 MG CAPSULE. PO SCH ×3 (09:56→21:10)
[2021-05-07] MEDS: ASPIRIN 325 MG TABLET PO SCH ×2 (09:56→21:09)
[2021-05-07] MEDS: FLUDROCORTISONE 0.1 MG TABLET PO SCH ×2 (09:57→21:11)
[2021-05-07] MEDS: ALPRAZolam 0.25 MG TABLET PO SCH ×2 (09:57→21:10)
[2021-05-07] MEDS: DULoxetine HCL 60 MG CAPSULE.DR PO SCH ×2 (09:57→21:10)
[2021-05-07] MEDS: SPIRONOLACTONE 25 MG TABLET PO SCH ×2 (09:58→21:10)
[2021-05-07] MEDS: POTASSIUM CHLORIDE 20 MEQ TABLET.ER. PO SCH ×3 (09:58→21:09)
[2021-05-07] MEDS: TORSEMIDE 20 MG TABLET. PO SCH ×3 (09:59→21:10)
[2021-05-07] MEDS: MULTIVITAMIN with MINERAL TABLET. PO SCH (09:59)
[2021-05-07] MEDS: HYDROCORTISONE 10 MG TABLET PO SCH ×2 (09:59→21:10)
[2021-05-07] MEDS: TOPIRAMATE 25 MG TABLET. PO SCH ×2 (09:59→21:10)
[2021-05-07] MEDS: PANTOPRAZOLE 40 MG TABLET. PO SCH ×2 (10:07→13:53)
[2021-05-07] MEDS: BACLOFEN 20 MG TABLET PO SCH ×3 (10:07→21:10)
[2021-05-07] MEDS: METHENAMINE HIPPURATE 1 GM TABLET PO SCH ×2 (10:08→21:10)
[2021-05-07 11:48] VITALS: BP 97/65
--- NOTE | 2021-05-07 14:49 | NUR ---
Nursing note PT in bed, reports pain and cramping in both legs, pain medication given per orders. Medications administered, call light within reach, bed low.
[2021-05-07 14:54] VITALS: BP 89/63
[2021-05-07 16:30] LABS: BASO % 0 % (0-3); EOS # 0.1 x10^3/uL (0.0-0.7); EOS % 1 % (0-3); HEMATOCRIT 31.6 % (36.0-47.0); HEMOGLOBIN 9.6 g/dL (12.0-15.5); LYMPH # 1.6 x10^3/uL (1.0-4.8); LYMPH % 12 % (24-48); MEAN CORPUSCULAR HEMOGLOBIN 34 pg (25-35); MEAN CORPUSCULAR HGB CONC 31 g/dL (31-37); MEAN CORPUSCULAR VOLUME 110 fL (79-100); MONO # 0.6 x10^3/uL (0.0-1.1); MONO % 4 % (0-9); NEUT # 11.3 x10^3uL (1.8-7.7); NEUT % 83 % (31-73); PLATELET COUNT 151 x10^3/uL (140-400); RED BLOOD COUNT 2.87 x10^6/uL (3.50-5.40); RED CELL DISTRIBUTION WIDTH 17.4 % (11.5-14.5); WHITE BLOOD COUNT 13.7 x10^3/uL (4.0-11.0)
--- NOTE | 2021-05-07 19:17 | HP ---
DATE OF SERVICE: 05/07/2021 ADMIT DATE: 05/06/2021 HISTORY OF PRESENT ILLNESS: The patient is a 45-year-old female patient who yet again came to the Emergency Department with a complaint of cough, generalized weakness, increasing fatigue, fever and bilateral lower extremity pain. She was seen at [facility] in the Emergency Department last Wednesday for shortness of breath and generalized fatigue. She stated that her symptoms are worse since then. Her complaints include fever, fatigue, shortness of breath, cough, lower extremity pain, swelling and erythema; however, she denied any chest pain, palpitation or hematuria. She also stated that she was seen by her nurse practitioner that works with insurance [employer] in to see her every 2 weeks and was started on Levaquin 750 mg once a day and also on Flagyl 500 mg 3 times a day for what seemed to be C. diff colitis. She also claimed that Dr. Castañeda, her primary care physician notified her that she is positive for C. diff colitis; however, she was already on Flagyl for that. She was extensively investigated in the Emergency Room and was found to have mild leukocytosis with a white cell count 12,400. She has microcytic anemia and normal platelet count. Her chemistry was mostly unremarkable. Her urinalysis showed that she has 11-20 wbc's, no bacteria and yeast is present. Her coronavirus by PCR was not detectable and apparently she was admitted with bilateral lower extremity cellulitis. She has chronic wounds for which she was seen at wound care clinic. She was borderline hypotensive; however, I am not sure about urinary tract infection given the fact that there are no bacteria there and she was already taking Levaquin. In any case, apparently, the nurse practitioner in the Emergency Room, was started her on vancomycin as well as ciprofloxacin and was admitted for further evaluation and treatment. 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 She apparently has gastroparesis, for which she underwent gastrectomy, bronchial asthma, chronic obstructive pulmonary disease. She had also mild stroke with left sided weakness, hypertension, history of methicillin-resistant Staphylococcus aureus infection, lumbar spinal stenosis, history of C. diff colitis, pulmonary embolism, hemorrhoids, hiatal hernia, kidney stones, footdrop, anxiety, depression and tobacco use. She also has a history of acute on chronic diastolic congestive heart failure and history of acute kidney injury due to cardiorenal syndrome. PAST SURGICAL HISTORY: Significant for tonsillectomy and adenoidectomy, cholecystectomy, gastrectomy and multiple abdominal surgeries, history of a PEG tube placement and removal, ventral hernia repair and cyst excision, hysterectomy and right rotator cuff repair. ALLERGIES: SHE IS ALLERGIC TO SULFA DRUGS, CITRIC ACID, AND SHELLFISH. FAMILY HISTORY: She has 2 brothers, both older and alive. Her older brother has diabetes and hypertension. Her younger brother has hypertension. His diabetes has ameliorated after he underwent bypass surgery. Her father is still alive at the age of 74, he is known to have myocardial infarction and underwent 6-vessel coronary artery bypass surgery. Her mother is still alive at the age of 73 and had myocardial infarction, for which she underwent PCI and stent deployment. SOCIAL HISTORY: She is , has one son. She smokes half a pack a day. She does not drink alcohol or use any recreational drugs. 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 REVIEW OF SYSTEMS: As per history of present illness. MEDICATIONS: She is currently on the following medications: She is currently on methenamine hippurate 1 gram twice a day, baclofen 20 mg 3 times a day, spironolactone 25 mg twice a day, aspirin 325 mg twice a day, oxycodone/APAP 10/325 one tablet 4 times a day, gabapentin 300 mg 3 times a day, topiramate 50 mg twice a day, duloxetine 60 mg twice a day, mirtazapine 30 mg at bedtime. She is on trazodone 150 mg at bedtime, alprazolam 0.25 mg twice a day, potassium chloride 60 mEq 3 times a day. She is on torsemide 20 mg 3 times a day, Mucinex D 1 tablet twice a day. She is on fluticasone propionate for Flonase 2 sprays to each nostril once a day, Protonix 40 mg twice a day, fludrocortisone 300 mcg twice a day, hydrocortisone 20 mg twice a day; melatonin 10 mg, she takes 20 mg at bedtime. PHYSICAL EXAMINATION: GENERAL: On arrival to the Emergency Room, she was pale, but not jaundiced, cyanosed, no lymphadenopathy, no thyromegaly, no jugular venous distention. No limb edema. VITAL SIGNS: Her heart rate was 101, blood pressure was 93/60, temperature was 99.1, respiratory rate was 16 and oxygen saturation was 89% on room air. HEAD, EYES, EARS, NOSE, AND THROAT: Normocephalic, atraumatic. NECK: Supple. HEART: Showed normal first and second heart sounds, no gallop or murmur. CHEST: Clear to auscultation. No crepitation or rhonchi. ABDOMEN: Distended, soft, nontender. NEUROLOGIC: She was grossly intact. EXTREMITIES: Examination of both lower extremities showed that she has wounds on the outer aspect of the left leg. She also has erythema on both lower extremities. She has a suprapubic catheter in place. LABORATORY DATA: Showed a white cell count of 12,400, hemoglobin 9, hematocrit 30, MCV 111, platelet 145,000 with automated differential showed 79% polymorphs, 15% lymphocytes and 5% monocytes. Her chemistry showed a serum sodium 140, potassium 4, chloride 107, bicarbonate 25, anion gap of 8, BUN 18, creatinine 1.3. Estimated GFR was 44 mL per minute. Her glucose was 99. Lactic acid was 1.2, calcium was 8.4. Total bilirubin, AST, ALT, alkaline phosphatase were normal. Total protein 6.1, albumin 3.3 and lipase was 194. Her urinalysis showed that she has 1-2 rbc's, 11-20 wbc's, and no bacteria; however, urine yeast are present. She did have left lower extremity venous Doppler ultrasound, which showed no evidence of deep vein thrombosis. ASSESSMENT AND PLAN: In summary, this is a 45-year-old female patient who was admitted with what seemed to be bilateral lower extremity cellulitis and she has wounds on the outer aspect of the left leg that is covered with dressing. She claims that she has C. diff colitis, although she has not had any bowel movement. She apparently was started despite her nurse practitioner employed by the insurance company and according to her, Dr. Castañeda notified her that she is positive for C. diff. My plan is obviously to continue with IV vancomycin. I will obviously hold other antibiotics that she was on before. Continue with all other medication. We will follow her closely and decide on further management accordingly. SUBHA DR: Abebe TID: [id number]
[2021-05-07 20:49] LABS: ALBUMIN 3.2 g/dL (3.4-5.0); ALBUMIN/GLOBULIN RATIO 1.1 (1.0-1.7); CALCIUM 8.6 mg/dL (8.5-10.1); CREATININE 1.5 mg/dL (0.6-1.0); GFR 37.4; POTASSIUM 3.1 mmol/L (3.5-5.1); TOTAL BILIRUBIN 0.3 mg/dL (0.2-1.0); TOTAL PROTEIN 6.1 g/dL (6.4-8.2)
[2021-05-07] MEDS: oxyCODONE/APAP 10/325 1 TAB TABLET PO PRN (21:09)
[2021-05-07] MEDS: MIRTAZAPINE 30 MG TABLET PO SCH (21:10)
[2021-05-07] MEDS: MELATONIN 3 MG TABLET PO SCH (21:10)
[2021-05-07] MEDS: traZODone 150 MG TABLET. PO SCH (21:10)
[2021-05-07] MEDS: VANCOMYCIN 1.5 GM in IV NORMAL SALINE 500ML 500 ML IV SCH (23:00)
[2021-05-07 23:12] VITALS: BP 99/68
[2021-05-08] MEDS: oxyCODONE/APAP 10/325 1 TAB TABLET PO PRN (04:05)
[2021-05-08 05:56] VITALS: BP 111/75
[2021-05-08] MEDS: GABAPENTIN 300 MG CAPSULE. PO SCH ×3 (08:13→21:00)
[2021-05-08] MEDS: SPIRONOLACTONE 25 MG TABLET PO SCH ×2 (08:13→21:01)
[2021-05-08] MEDS: DULoxetine HCL 60 MG CAPSULE.DR PO SCH ×2 (08:13→21:02)
[2021-05-08] MEDS: ASPIRIN 325 MG TABLET PO SCH ×2 (08:13→21:00)
[2021-05-08] MEDS: BACLOFEN 20 MG TABLET PO SCH ×3 (08:13→21:02)
[2021-05-08] MEDS: ALPRAZolam 0.25 MG TABLET PO SCH ×2 (08:13→21:00)
[2021-05-08] MEDS: TOPIRAMATE 25 MG TABLET. PO SCH ×2 (08:14→21:01)
[2021-05-08] MEDS: PANTOPRAZOLE 40 MG TABLET. PO SCH ×2 (08:14→13:40)
[2021-05-08] MEDS: POTASSIUM CHLORIDE 20 MEQ TABLET.ER. PO SCH ×6 (08:14→21:01)
[2021-05-08] MEDS: MULTIVITAMIN with MINERAL TABLET. PO SCH (08:14)
[2021-05-08] MEDS: TORSEMIDE 20 MG TABLET. PO SCH ×2 (08:14→13:40)
[2021-05-08] MEDS: HYDROCORTISONE 10 MG TABLET PO SCH ×2 (08:14→21:02)
[2021-05-08] MEDS: FLUDROCORTISONE 0.1 MG TABLET PO SCH (08:15)
[2021-05-08] MEDS: METHENAMINE HIPPURATE 1 GM TABLET PO SCH ×2 (08:15→21:02)
--- NOTE | 2021-05-08 08:48 | NUR ---
Wound/Ostomy Care Wound Type/Assessment: Wound consult for multiple wounds to LLE/foot. Patient is current pt of [facility] and was seen in clinic last Wednesday. Dr Kelly recommended she report to ED due to SOA and fevers but legs did not look cellulitic at that time. Pt went to [facility] ED and was sent home, now admitted to [facility]. Cleansed, measured and redressed wounds. Treatment Recommendations/Plan: Cleanse wounds, apply iodoflex (remove one side of white mesh and press into wound) cover with foam dressing, change every 2-3 days. Education provided: WC POC and PU prevention Offloading surface/device: float heels and turn frequently Recommended Referrals/Tests: na, patient will continue to follow with [facility] after dc Discharge Recommendations for dressings: see above
[2021-05-08] MEDS ORDERED: MAGN400T48 PO (09:35)
[2021-05-08] MEDS ORDERED: PHEN-444 PO (09:35)
[2021-05-08] MEDS ORDERED: METO5TAB4 PO (09:35)
[2021-05-08] MEDS ORDERED: OMEP20CA16 PO (09:35)
[2021-05-08] MEDS ORDERED: DICL100G28 TP (09:35)
[2021-05-08] MEDS ORDERED: FURO20TA3 PO (09:35)
[2021-05-08] MEDS ORDERED: ALBU2.5V8 INH (09:35)
[2021-05-08] MEDS ORDERED: CYAN10002 IM (09:35)
[2021-05-08] MEDS ORDERED: HYOS0.1279 PO (09:35)
[2021-05-08] MEDS ORDERED: ONDA4TAB12 PO (09:35)
[2021-05-08] MEDS ORDERED: ASCO500C PO (09:35)
[2021-05-08] MEDS ORDERED: CHOL10004 PO (09:35)
[2021-05-08] MEDS ORDERED: BUDE10.2 IH (09:35)
--- NOTE | 2021-05-08 09:36 | NUR ---
PT C/O PAIN AFTER DRESSING CHANGE THIS MORNING. THIS RN CALLED DR. HOLCOMB TO ASK ABOUT PAIN MEDICATION. DR. HOLCOMB STATED PT COULD HAVE 50MCG OF FENTANYL IV ONLY BEFORE DRESSING CHANGES. ORDER PLACED AND CONSULTED WITH PHARMACY. PT GAVE CURRENT MED LIST TO THIS RN. PT ASKED THIS RN TO READ OFF HER MEDICATIONS THIS MORNING. PT STATED SHE WAS MISSING SOME MEDICATIONS. THIS RN ASKED PT FOR A COPY OF THE MED LIST. THIS RN ADDED/REVIEWED/CHANGED MULTIPLE MEDICATIONS. WILL REVIEW WITH DR. HOLCOMB WHEN HE ROUNDS. Addendum: 05/08/21 at 1536 by ANTONIO CROOKS RN DR. HOLCOBM CHANGED MEDICATIONS NECESSARY. PT GIVEN A SERIES OF 3 40MEQ OF POTASSIUM FOR CRITICALLY LOW VALUE OF 2.8. WILL RECHECK AT 1600. PAIN MEDICATIONS ADDED PRN. HAT PLACED IN PT TOILET BECAUSE SHE CLAIMS TO DR. HOLCOMB THAT SHE IS HAVING LOOSE STOOLS, BUT HAS NOT REPORTED THIS TO STAFF.
[2021-05-08 10:21] LABS: HEMOGLOBIN 9.6 g/dL (12.0-15.5); RED BLOOD COUNT 2.83 x10^6/uL (3.50-5.40); RED CELL DISTRIBUTION WIDTH 17.1 % (11.5-14.5); WHITE BLOOD COUNT 11.3 x10^3/uL (4.0-11.0)
[2021-05-08 10:35] LABS: ALBUMIN 3.1 g/dL (3.4-5.0); ALBUMIN/GLOBULIN RATIO 1.1 (1.0-1.7); CALCIUM 8.3 mg/dL (8.5-10.1); CREATININE 1.4 mg/dL (0.6-1.0); GFR 40.5; TOTAL BILIRUBIN 0.3 mg/dL (0.2-1.0); TOTAL PROTEIN 5.9 g/dL (6.4-8.2)
[2021-05-08 10:43] LABS: POTASSIUM 2.8 mmol/L (3.5-5.1)
[2021-05-08 10:52] VITALS: BP 97/67
[2021-05-08] MEDS ORDERED: POTASSIUM CHLORIDE 20 MEQ TABLET.ER. PO ONE ×2 (12:30→13:30)
[2021-05-08 14:59] VITALS: BP 95/64
[2021-05-08] MEDS: ONDANSETRON PF 4 MG/2 ML VIAL. IVP PRN ×2 (15:56→22:24)
[2021-05-08 16:17] LABS: CALCIUM 8.1 mg/dL (8.5-10.1); CREATININE 1.2 mg/dL (0.6-1.0); GFR 48.4; POTASSIUM 4.4 mmol/L (3.5-5.1)
[2021-05-08 18:56] VITALS: BP 102/69
--- NOTE | 2021-05-08 19:18 | NUR ---
PT IS EATING AND DRINKING WELL. NOW REQUESTING ZOFRAN FOR NAUSEA, LAST DOSE GIVEN AT 1600. NOTIFIED PT ANOTHER DOSE IS NOT AVAILABLE UNTIL 2200. INSTRUCTED PT TO STOP DRINKING PEPSI IN THE MEANTIME.
[2021-05-08] MEDS: LACTOBACILLUS RHAMNOSUS GG 1 CAPSULE. PO SCH (21:01)
[2021-05-08] MEDS: MIRTAZAPINE 30 MG TABLET PO SCH (21:02)
[2021-05-08] MEDS: traZODone 150 MG TABLET. PO SCH (21:02)
[2021-05-08] MEDS: MELATONIN 3 MG TABLET PO SCH (21:02)
--- NOTE | 2021-05-08 21:46 | PN ---
DATE: 05/08/2021 SUBJECTIVE: The patient is resting, slightly propped up in bed, very sleepy, but arousable. On questioning her, she is complaining of severe pain in her legs. She was seen by the wound care team and apparently did some debridement according to her. She also complained that she has 2 watery stools. PHYSICAL EXAMINATION: GENERAL: When I examined her, she was pale, not jaundiced, cyanosed, no lymphadenopathy, no thyromegaly, no jugular venous distention. No lower limb edema. VITAL SIGNS: Her heart rate was 103, blood pressure was 95/64, temperature was 98.6, respiratory rate was 18 and oxygen saturation was 93% on 3 liters of oxygen. The rest of clinical exam is stable. EXTREMITIES: She has erythema in her both lower extremities seems to be less, although has not faded completely. She has multiple wounds. Her intake was 1520, output was 4250. LABORATORY DATA: This morning showed a white cell count of 11,000, hemoglobin 9.6, hematocrit 31, MCV 110, and platelet count of 132,000. Her chemistry showed that her serum sodium 143, potassium 2.8, chloride 104, bicarbonate 28, anion gap 11, BUN 26, creatinine 1.4, estimated GFR was 40 mL per minute. Her glucose was 122, calcium was 8.3. Her total bilirubin and ALT normal, AST and alkaline phosphatase slightly elevated. Total protein was 5.9, albumin was 3.1. Her coronavirus by PCR was negative. Urinalysis was essentially unremarkable. ASSESSMENT: 1. Bilateral lower extremity cellulitis. 2. Multiple wounds on the outer aspect of the left leg. 3. She has stated she has a history of C. diff colitis and at least today she has had 2 episodes of watery stools and her potassium has dropped down to 2.8. 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 PLAN: My plan is to hold her furosemide for now and also attempt to get sample of her stool to be sent for C. diff toxins to verify her complaint. Meanwhile, we will continue with IV vancomycin. LOUISE DR: Abebe TID: [id number]
[2021-05-08 22:39] VITALS: BP 89/61
[2021-05-08 22:56] LABS: VANC TR 10.6 mcg/mL (10.0-20.0)
[2021-05-08] MEDS: VANCOMYCIN 1.5 GM in IV NORMAL SALINE 500ML 500 ML IV SCH (23:08)
[2021-05-09 05:48] VITALS: BP 88/51
[2021-05-09 06:14] LABS: BASO % 1 % (0-3); EOS # 0.1 x10^3/uL (0.0-0.7); EOS % 1 % (0-3); HEMATOCRIT 28.8 % (36.0-47.0); HEMOGLOBIN 8.8 g/dL (12.0-15.5); LYMPH # 1.6 x10^3/uL (1.0-4.8); LYMPH % 21 % (24-48); MEAN CORPUSCULAR HEMOGLOBIN 34 pg (25-35); MEAN CORPUSCULAR HGB CONC 31 g/dL (31-37); MEAN CORPUSCULAR VOLUME 110 fL (79-100); MONO # 0.3 x10^3/uL (0.0-1.1); MONO % 4 % (0-9); NEUT # 5.6 x10^3uL (1.8-7.7); NEUT % 74 % (31-73); PLATELET COUNT 124 x10^3/uL (140-400); RED BLOOD COUNT 2.62 x10^6/uL (3.50-5.40); RED CELL DISTRIBUTION WIDTH 16.8 % (11.5-14.5); WHITE BLOOD COUNT 7.6 x10^3/uL (4.0-11.0)
[2021-05-09 06:43] LABS: ALBUMIN 2.7 g/dL (3.4-5.0); CALCIUM 8.4 mg/dL (8.5-10.1); CREATININE 1.1 mg/dL (0.6-1.0); GFR 53.5; POTASSIUM 3.9 mmol/L (3.5-5.1); TOTAL BILIRUBIN 0.2 mg/dL (0.2-1.0); TOTAL PROTEIN 5.3 g/dL (6.4-8.2)
[2021-05-09] MEDS: PANTOPRAZOLE 40 MG TABLET. PO SCH ×2 (08:04→14:03)
[2021-05-09] MEDS: LACTOBACILLUS RHAMNOSUS GG 1 CAPSULE. PO SCH (08:05)
[2021-05-09] MEDS: DULoxetine HCL 60 MG CAPSULE.DR PO SCH (08:05)
[2021-05-09] MEDS: ALPRAZolam 0.25 MG TABLET PO SCH (08:07)
[2021-05-09] MEDS: ASPIRIN 325 MG TABLET PO SCH (08:07)
[2021-05-09] MEDS: POTASSIUM CHLORIDE 20 MEQ TABLET.ER. PO SCH ×2 (08:07→14:03)
[2021-05-09] MEDS: MULTIVITAMIN with MINERAL TABLET. PO SCH (08:08)
[2021-05-09] MEDS: TOPIRAMATE 25 MG TABLET. PO SCH (08:08)
[2021-05-09] MEDS: BACLOFEN 20 MG TABLET PO SCH ×2 (08:08→14:03)
[2021-05-09] MEDS: GABAPENTIN 300 MG CAPSULE. PO SCH ×2 (08:08→14:03)
[2021-05-09] MEDS: METHENAMINE HIPPURATE 1 GM TABLET PO SCH (08:09)
[2021-05-09] MEDS: HYDROCORTISONE 10 MG TABLET PO SCH (08:09)
[2021-05-09] MEDS ORDERED: FLUDROCORTISONE 0.1 MG TABLET PO SCH (09:00)
[2021-05-09] MEDS ORDERED: TORSEMIDE 20 MG TABLET. PO SCH (09:00)
[2021-05-09] MEDS: SPIRONOLACTONE 25 MG TABLET PO SCH (09:22)
[2021-05-09 11:09] VITALS: BP 101/69
[2021-05-09] MEDS: VANCOMYCIN PER PHARMACY MC PRN (13:07)
--- NOTE | 2021-05-09 13:08 | NUR ---
Pharmacy Vancomycin Dosing Note S:Consulted to monitor and dose vancomycin started 05/06/21. O:ROSANGELA FLORENCE is a 45 year old F with Cellulitis, . Height: 5 feet, 0 inches Weight: 93.2 kg [place] Body Weight: Adjusted Body Weight: Dosing Weight: Actual Other Antibiotics: LEVOFLOXACIN 750MG LABS: Last BUN: 25 Last Creatinine: 1.1 Creatinine Clearance: 55ML/MIN Last WBC: 7.6 Last Procalcitonin: Tmax (past 24 hours): Microbiology: I/O: Drug Levels: Last Trough level: 10.6 on 05/08/21 at 2230 Last dose given 05/12/21 at 2230 Vancomycin Dosing: Loading Dose: 2000 mg x1 Dosing Weight: Actual Target Trough: 10-20 A: Based on: P: 1. Continue Vancomycin 1500 mg IV q24h 2. Follow up Trough level on 05/12/21 at 2230 3. Pharmacy will continue to monitor, follow and adjust therapy as needed. ROSEANNA NASH, [facility], 05/09/21 [id number]
[2021-05-09] MEDS ORDERED: LINE600I IV (14:09)
--- NOTE | 2021-05-09 14:11 | DISCH ---
HOME HEALTH DISCHARGE/MEDS DISCHARGE INFORMATION: Final Diagnosis: Problems Medical Problems: (1) Chronic fatigue, unspecified Status: Acute (2) Hypotension Status: Acute (3) Recurrent urinary tract infection Status: Acute Condition on Discharge: Stable CODE STATUS: Code Status: Full HOME HEALTH: Face to Face: I certify this patient is under my care and that I, or a nurse practitioner or physician's technology assistant working with me, had a face to face encounter that meets the physician face to face encounter requirements with this patient on 05/09/2021 Correction For: Admin/Educate Injections, Medication Management Physical Therapy For: Evalulation/Treatment Occupational Therapy For: Evaluation/Treatment Homebound Status Met By: Extreme weakness w/ amb. POST DISCHARGE ORDERS: Activity Instructions for Disc: Activity as tolerated DIET AFTER DISCHARGE: Regular CERTIFICATION STATEMENT: Certification Statement: Based on the above finding, I certify that this patient is confined to the home and needs intermittent residential care, physical therapy and/or speech therapy, or continues to need occupational therapy.~ This patient is under my care, and I have initiated the establishment of the plan of care.~ This patient will be followed by myself or a community physician who will periodically review the plan of care. DISCHARGE MEDICATIONS: Home Meds Active Scripts Linezolid (ZYVOX) 600 Mg/300 Ml Iv.soln, 600 MG IV BID for CELLULITIS for 7 Days, #14 [facility] [place] Prov:UMESH HOLCOMB MD 05/09/21 Reported Medications Diclofenac Sodium (Diclofenac Sodium) 100 Gm Gel..gram., 1 FIDENCIO TP PRN PRN for PAIN for 21 Days, #100 GM 0 Refills 05/08/21 Budesonide/Formoterol Fumarate (SYMBICORT 160-4.5 MCG INHALER) 10.2 Gm Hfa.aer.ad, 2 PUFF IH BID for ., #10.6 GM 3 Refills 05/08/21 Albuterol Sulfate (PROVENTIL HFA INHALER) 6.7 Gm Hfa.aer.ad, 1 PUFF INH BID PRN for FOR ASTHMA, EACH 0 Refills 05/08/21 Cholecalciferol (Vitamin D3) (Vitamin D3 ) 25 Mcg Tablet, 5 MCG PO TID for SUPPLEMENT, TAB 1,000 UNITS = 25 MCG 05/08/21 Cyanocobalamin (Vitamin B-12) (CYANOCOBALAMIN INJECTION) 1,000 Mcg/1 Ml Vial, 1 ML IM Q2WKS for ., #1 VIAL 3 Refills 05/08/21 Omeprazole (OMEPRAZOLE) 20 Mg Capsule.dr, 1 CAP PO QHS for ., #30 CAP 5 Refills 05/08/21 Metolazone (METOLAZONE) 5 Mg Tablet, 5 MG PO PRN PRN for ., TAB 05/08/21 Magnesium Oxide (MAGNESIUM OXIDE) 400 Mg Tablet, 1 TAB PO TID for /, #30 TAB 5 Refills 05/08/21 Hyoscyamine Sulfate (HYOSCYAMINE SULFATE) 0.125 Mg Tablet, 1 TAB PO TID for . for 30 Days, #90 TAB 0 Refills 05/08/21 Phenazopyridine Hcl (PHENAZOPYRIDINE HCL) 200 Mg Tablet, 400 MG PO TID for ., TAB 05/08/21 Ondansetron (ONDANSETRON ODT) 4 Mg Tab.rapdis, 8 MG PO Q4-6HRS PRN for NAUSEA, TAB 05/08/21 Ascorbic Acid (VITAMIN C) 500 Mg Capsule.er, 500 MG PO TID for ., CAP.SR 05/08/21 Methenamine Hippurate (METHENAMINE HIPPURATE) 1 Gm Tablet, 1 TAB PO BID for URINARY INFECTION 09/16/20 Pantoprazole Sodium (PROTONIX) 40 Mg Tablet.dr, 40 MG PO BID92 for DYSPEPSIA 07/06/20 Guaifenesin/Pseudoephedrne Hcl (MUCINEX D ER 600-60 MG TABLET) 1 Each Tab.er.12h, 1 TAB PO BID for THINS MUCOUS 07/06/20 Trazodone Hcl (TRAZODONE HCL) 150 Mg Tablet, 150 MG PO QHS for INSOMNIA, TAB 07/06/20 Spironolactone (SPIRONOLACTONE) 25 Mg Tablet, 1 TAB PO BID for FLUID RETENTION 04/03/20 Baclofen (BACLOFEN) 20 Mg Tablet, 1 TAB PO BID for MUSCLE CRAM PS 04/03/20 Hydrocortisone (HYDROCORTISONE) 5 Mg Tablet, 20 MG PO BID for GERARDO'S DISEASE LAST DOSE GIVEN: DATE: TODAY TIME: AM NEXT DOSE DUE: DATE: TODAY TIME: PM 03/14/20 Fludrocortisone Acetate (FLUDROCORTISONE ACETATE) 0.1 Mg Tablet, 2 TAB PO BID for GERARDO'S DISEASE LAST DOSE GIVEN: DATE: TODAY TIME: AM NEXT DOSE DUE: DATE: TODAY TIME: PM 02/15/20 Topiramate (TOPAMAX) 50 Mg Tablet, 1 TAB PO BID for PREVENT MIGRAINES LAST DOSE GIVEN: DATE: TIME: AM NEXT DOSE DUE: DATE: TODAY TIME: PM 02/15/20 Gabapentin (GABAPENTIN ) 300 Mg Capsule, 300 MG PO TID for NERVE PAIN LAST DOSE GIVEN: DATE: TODAY TIME: AFTERNOON NEXT DOSE DUE: DATE: TODAY TIME: PM 02/15/20 Fluticasone Propionate (FLUTICASONE PROPIONATE NASAL SPRAY) 16 Gm [place].susp, 16 GM NS BID PRN for NASAL CONGESTION NOT GIVEN TODAY NEXT DOSE DUE: DATE: TIME: IF AND WHEN NEEDED 02/15/20 Potassium Chloride (POTASSIUM CHLORIDE ) 20 Meq Tablet.er, 3 TAB PO TID for SUPPLEMENT LAST DOSE GIVEN: DATE: TIME: AFTERNOON NEXT DOSE DUE: DATE: TODAY TIME: PM 12/18/19 Alprazolam (ALPRAZOLAM) 0.25 Mg Tablet, 0.25 MG PO BID for ANXIETY LAST DOSE GIVEN: DATE: TODAY TIME: AM NEXT DOSE DUE: DATE: TODAY TIME: PM 05/30/19 Torsemide (TORSEMIDE) 20 Mg Tablet, 1 TAB PO TID for FLUID RETENTION LAST DOSE GIVEN: DATE: TIME: AFTERNOON NEXT DOSE DUE: DATE: TODAY TIME: PM 05/30/19 Aspirin (ASPIRIN) 325 Mg Tablet, 325 MG PO BID for HEART HEALTH LAST DOSE GIVEN: DATE: TIME: AM NEXT DOSE DUE: DATE: TODAY TIME: PM 01/20/19 Mirtazapine (MIRTAZAPINE) 30 Mg Tablet, 1 TAB PO QHS for MOOD DISORDER LAST DOSE GIVEN: DATE: YESTERDAY TIME: AT BEDTIME NEXT DOSE DUE: DATE: TODAY TIME: AT BEDTIME 10/10/18 Duloxetine Hcl (CYMBALTA) 60 Mg Capsule.dr, 1 CAP PO BID for DEPRESSION LAST DOSE GIVEN: DATE: TIME: AM NEXT DOSE DUE: DATE: TODAY TIME: PM 10/10/18 Discontinued Reported Medications Furosemide (FUROSEMIDE) 20 Mg Tablet, 1 TAB PO DAILY for ., #90 TAB 1 Refill 05/08/21 Oxycodone Hcl/Acetaminophen (PERCOCET 10-325 MG TABLET ) 1 Each Tablet, 1 TAB PO PRN QID PRN for PAIN MDD 4 Tablet(s) 07/06/20 Melatonin (MELATONIN) 10 Mg Tab.mphase, 2 TAB PO QHS for SLEEP AID LAST DOSE GIVEN: DATE: YESTERDAY TIME: AT BEDTIME NEXT DOSE DUE: DATE: TODAY TIME: AT BEDTIME 02/15/20 Multivitamin (MULTIVITAMINS) 1 Each Tablet, 1 TAB PO BID for SUPPLEMENT LAST DOSE GIVEN: DATE: TODAY TIME: AM NEXT DOSE DUE: DATE: TODAY TIME: PM 10/10/18 Discontinued Scripts Cephalexin (KEFLEX) 500 Mg Capsule, 1 CAP PO BID for UTI for 7 Days, #14 CAP Take 1 tablet by mouth twice per day for 7 days. Prov:ANDRÉS WADDELL 02/25/21 Azithromycin (ZITHROMAX) 250 Mg Tablet, 250 MG PO DAILY for ANTI-BIOTIC for 2 Days, #2 TAB 0 Refills Prov:UMESH HOLCOMB MD 01/17/21 UMESH HOLCOMB MD May 09, 2021 14:11
[2021-05-09 14:57] VITALS: BP 92/63
--- NOTE | 2021-05-09 15:45 | NUR ---
Nursing note PT was discharged from the hospital to go home, will continue treatment with home health. Spoke with case management who advised the PT port should be left in place since she will be continuing treatment at home. PT was alert and stable during discharge. Was assisted off the floor by a GORING CUTTER with a wheel chair. PT was picked up from the facility by her .
[2021-05-09] MEDS ORDERED: VANC1.5P36 IV (16:11)
--- NOTE | 2021-05-09 23:25 | DS ---
DATE OF DISCHARGE: 05/09/2021 HOSPITAL COURSE: The patient is a 45-year-old female patient who was admitted through the Emergency Room of [facility] with bilateral lower extremity cellulitis. She has also multiple wounds on the outer aspect of both legs. She stated that she has a history of C. diff colitis, although I could not really find any documentation stating that in her visits to [facility]. While here, she has had no further episodes of diarrhea. She was started on IV vancomycin and she did actually very well. Her white cell count came down steadily from 12.4 down to 7.5. She has been afebrile and has been hemodynamically stable. She has multiple antibiotics. SHE HAS ALLERGIES TO SULFA DRUGS. She has wounds that might be the source of infection. Her blood cultures are so far negative and therefore, a decision was made to discharge her home on IV Zyvox 600 mg twice a day. I have discussed with her the potential for serotonin syndrome and that she needs to hold her trazodone as well as the mirtazapine because of the interaction between them and the linezolid, and she agreed to hold them for a week and then she can go back on them once the antibiotic therapy is completed. She will be followed by the home healthcare agency to continue with wound care. PHYSICAL EXAMINATION: GENERAL: When I saw her today, she looked well and was clearly in no apparent respiratory distress. She is somewhat pale, not jaundiced or cyanosed. No lymphadenopathy, no thyromegaly, no jugular venous distention. No lower limb edema. VITAL SIGNS: Her heart rate was 91, blood pressure was 101/69, temperature was 98.2, respiratory rate was 18 and oxygen saturation was 94% on 2 liters of oxygen. HEAD, EYES, EARS, NOSE, AND THROAT: Showed normocephalic, atraumatic. NECK: Supple. HEART: Showed normal first and second heart sounds. No gallop or murmur. CHEST: Clear to auscultation. No crepitation or rhonchi. ABDOMEN: Distended, soft, nontender. NEUROLOGIC: She is awake, alert, responding appropriately. All cranial nerves intact. She moves extremities without difficulty. GENITOURINARY: She has suprapubic catheter in place. SKIN: She does have also wounds in outer aspect of both legs, covered with dressing. Her intake over the last 24 hours was 1500, output was 4250. LABORATORY DATA: As of this morning, her white cell count was 7600, hemoglobin 8.8, hematocrit 28.8, MCV 110, and platelet count of 124,000 with manual differential showed 74% polymorphs, 21% lymphocytes, 4% monocytes. Her chemistry this morning showed a serum sodium 143, potassium 3.9, chloride 108, bicarbonate 26, anion gap of 9, BUN 25, creatinine 1.1. Estimated GFR was 53 mL per minute. Her glucose was 90, calcium was 8.4. Total bilirubin, AST, ALT, alkaline phosphatase were normal. Her total protein was 5.3, albumin was 2.7. DISCHARGE MEDICATIONS: The patient was discharged home to continue on Zyvox 600 mg IV twice a day for 7 days. She should continue with all other medications except her mirtazapine and trazodone. I will give the patient also ondansetron as these are potential interactions with Zyvox to cause serotonin syndrome. I will give her also ____ some literature for her to read and she obviously has to come to the nearest Emergency Room if she developed any of these symptoms. Her medications are listed in the discharge summary with the exception of a medication that she was advised to hold and to which she agrees after we discussed her together with RN. FINAL DISCHARGE DIAGNOSES: 1. Bilateral lower extremity cellulitis. 2. Multiple wounds on the outer aspect of both legs covered with dressing. 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 She has mild stroke with left-sided weakness, hypertension, history of previous methicillin-resistant Staphylococcus aureus infection, lumbar spinal stenosis, history of Clostridium difficile colitis, pulmonary embolism, hemorrhoids, hiatal hernia, kidney stones, footdrop, anxiety, depression and tobacco use. RONALD/MILAN/PINO DR: Abebe TID: [id number]
== END 2021-05-09 15:50 | disposition home health service (06) | DRG 602 ==
LOC: ER 17:51 → 1 SOUTH 22:49
PROVIDERS: ADMIT Hospitalist; ATTEND Hospitalist
DX: L03.115 Cellulitis of right lower limb (principal); N17.0 Acute kidney failure with tubular necrosis; E27.1 Primary adrenocortical insufficiency; I69.354 Hemiplegia and hemiparesis following cerebral infarction affecting left non-dominant side; I50.32 Chronic diastolic (congestive) heart failure; R65.10 Systemic inflammatory response syndrome (SIRS) of non-infectious origin without acute organ dysfunction; J96.10 Chronic respiratory failure, unspecified whether with hypoxia or hypercapnia; L03.116 Cellulitis of left lower limb; J44.9 Chronic obstructive pulmonary disease, unspecified; D50.9 Iron deficiency anemia, unspecified; F17.210 Nicotine dependence, cigarettes, uncomplicated; I11.0 Hypertensive heart disease with heart failure; Z87.442 Personal history of urinary calculi; Z88.2 Allergy status to sulfonamides; Z87.440 Personal history of urinary (tract) infections; Z90.710 Acquired absence of both cervix and uterus; Z86.711 Personal history of pulmonary embolism; Z86.19 Personal history of other infectious and parasitic diseases; Z86.14 Personal history of Methicillin resistant Staphylococcus aureus infection; Z83.3 Family history of diabetes mellitus; Z82.49 Family history of ischemic heart disease and other diseases of the circulatory system; Z91.013 Allergy to seafood; Z20.822 Contact with and (suspected) exposure to COVID-19
CPT/HCPCS: 36415; 71045; 80048; 80053; 80202; 81001; 82947; 83605; 83690; 85007; 85025; 85027; 87040; 87086; 93005; 93971; 96365; 96375; J1940; J1956; J2020; J2405; J3010; J3370; J7040; U0003; 99285-25

== ENCOUNTER → 2021-05-16 | Outpatient (CLI) | payer OTHER, MEDICAID ==
[2021-05-09 14:57] VITALS: BP 92/63
[~2021-05-16] MED LIST changes: +ALBU2.5V8 INH; +ASCO500C PO; +CHOL10004 PO; +DICL100G28 TP; +FURO20TA3 PO; +HYOS0.1279 PO; +LINE600I IV; +MAGN400T48 PO; +VANC1.5P36 IV
[2021-05-16 13:20] LABS: BLOOD UREA NITROGEN 23 mg/dL (7-20); CREATININE 1.6 mg/dL (0.6-1.0); GFR 34.7; VANC TR 19.1 mcg/mL (10.0-20.0)
== END ==
LOC: LAB 13:02
PROVIDERS: ATTEND Family Medicine
DX: L03.115 Cellulitis of right lower limb (principal)
CPT/HCPCS: 36415; 80202; 82565; 84520

== ENCOUNTER → 2021-05-20 | Outpatient (CLI) | payer OTHER, MEDICAID ==
[2021-05-09 14:57] VITALS: BP 92/63
[2021-05-20 12:31] LABS: HEMATOCRIT 29.1 % (36.0-47.0); HEMOGLOBIN 9.4 g/dL (12.0-15.5); RED BLOOD COUNT 2.8 x10^6/uL (3.50-5.40); RED CELL DISTRIBUTION WIDTH 15.1 % (11.5-14.5)
[2021-05-20 12:49] LABS: ALBUMIN 2.8 g/dL (3.4-5.0); ALBUMIN/GLOBULIN RATIO 1.1 (1.0-1.7); ALK PHOS 71 U/L (46-116); ALT (SGPT) 17 U/L (14-59); ANION GAP 9 (6-14); AST (SGOT) 16 U/L (15-37); BLOOD UREA NITROGEN 12 mg/dL (7-20); BUN/CREATININE RATIO 10 (6-20); CALCIUM 7.3 mg/dL (8.5-10.1); CARBON DIOXIDE 23 mmol/L (21-32); CHLORIDE 111 mmol/L (98-107); CREATININE 1.2 mg/dL (0.6-1.0); GFR 48.4; GLUCOSE 72 mg/dL (70-99); POTASSIUM 3.1 mmol/L (3.5-5.1); SODIUM 143 mmol/L (136-145); TOTAL BILIRUBIN 0.2 mg/dL (0.2-1.0); TOTAL PROTEIN 5.3 g/dL (6.4-8.2)
== END ==
LOC: SPEC 11:29
PROVIDERS: ATTEND Family Medicine
DX: Z45.2 Encounter for adjustment and management of vascular access device (principal)
CPT/HCPCS: 36415; 80053; 80202; 85027

== ENCOUNTER 2021-10-03 19:46 | Observation (INO) | payer MEDICAID, OTHER ==
[~2021-10-03] VITALS: Ht 160 cm; Wt 82.0 kg
[~2021-10-03 19:46] MED LIST changes: -ACET-1871 PO; +ACET1TAB63 PO; -METR-111 PO; +[UNRECOGNIZED DRUG - CODE] PO
[2021-10-03] MEDS ORDERED: MORPHINE SULFATE 4 MG/ML DISP.SYRIN. IV ONE (20:00)
[2021-10-03] MEDS ORDERED: IV NORMAL SALINE 1,000ML 1,000 ML IV ONE (20:00)
[2021-10-03] MEDS ORDERED: ONDANSETRON PF 4 MG/2 ML VIAL. IVP ONE (20:00)
[2021-10-03] MEDS ORDERED: MORPHINE SULFATE 4 MG/ML DISP.SYRIN. ONE (20:04)
[2021-10-03 20:26] LABS: BASO # 0.1 x10^3/uL (0.0-0.2); BASO % 1 % (0-3); EOS % 0 % (0-3); HEMATOCRIT 30.8 % (36.0-47.0); HEMOGLOBIN 9.3 g/dL (12.0-15.5); LYMPH % 14 % (24-48); MEAN CORPUSCULAR HEMOGLOBIN 27 pg (25-35); MEAN CORPUSCULAR HGB CONC 30 g/dL (31-37); MEAN CORPUSCULAR VOLUME 90 fL (79-100); MONO # 0.7 x10^3/uL (0.0-1.1); MONO % 5 % (0-9); NEUT # 11.2 x10^3uL (1.8-7.7); NEUT % 80 % (31-73); PLATELET COUNT 215 x10^3/uL (140-400); RED BLOOD COUNT 3.43 x10^6/uL (3.50-5.40); RED CELL DISTRIBUTION WIDTH 19.5 % (11.5-14.5)
--- NOTE | 2021-10-03 20:30 | RAD ---
Exam: Chest one view INDICATION: Shortness of breath TECHNIQUE: Frontal view of the chest Comparisons: 05/06/2021 FINDINGS: Right anterior chest wall port with catheter tip at the SVC. The cardiomediastinal silhouette and pulmonary vessels are within normal limits. Consolidation of the left upper to midlung. No pleural effusion. IMPRESSION: Findings likely related to a left lower lobe pneumonia. Follow-up imaging posttreatment to ensure res olution is recommended. Electronically signed by: Rian Bermeo MD (10/03/2021 8:28 PM) [place]
[2021-10-03 20:38] LABS: ALBUMIN/GLOBULIN RATIO 0.8 (1.0-1.7); CALCIUM 8.6 mg/dL (8.5-10.1); GFR 16.8; TOTAL BILIRUBIN 0.8 mg/dL (0.2-1.0); TOTAL PROTEIN 4.6 g/dL (6.4-8.2)
[2021-10-03 20:42] LABS: POTASSIUM 2.4 mmol/L (3.5-5.1)
--- NOTE | 2021-10-03 21:06 | PHYS DOC ---
Past History Past Medical History: No Pertinent History, COPD, CVA, Renal Failure Additional Past Medical Histor: stroke, gastroparesis, spinal stenosis, anni disease, stroke (right side Past Surgical History: No Surgical History Additional Past Surgical Histo: suprapubic catheter, abdominal surgery, hernia repair, colectomy, PORT Smoking: Cigarettes Alcohol Use: None Drug Use: None General Adult EDM: Chief Complaint: DYSPNEA/RESPIRATOY DISTRESS HPI: HPI: 45-year-old female presents via EMS with shortness of breath. The entire history comes from EMS reports. The patient is on hospice for renal failure, heart failure, and end-stage COPD. The patient is supposed to be on hospice but they were unable to get comfort meds to the patient for a few hours. She was restless and appeared to be struggling so family wanted her brought to the hospital. On arrival there was some confusion between full code and comfort care. The patient's blood pressure was low and she was hypoxic for EMS. Review of Systems: Review of Systems: Unable to evaluate due to patient's condition Current Medications: Current Meds: Current Medications Medications (Trade) Dose Ordered Sig/Mani Start Time Stop Time Status Last Admin Dose Admin Lorazepam (Ativan Inj) 2 mg 1X ONCE 10/03/21 21:00 10/03/21 21:01 UNV Morphine Sulfate (Morphine 4mg Syringe) 4 mg STK-MED ONCE 10/03/21 20:04 10/03/21 20:04 DC Ondansetron HCl (Zofran) 4 mg 1X ONCE 10/03/21 20:00 10/03/21 20:04 DC 10/03/21 20:00 4 MG Sodium Chloride 1,000 ml @ 1,000 mls/hr 1X ONCE 10/03/21 20:00 10/03/21 20:59 10/03/21 20:00 1,000 MLS/HR Allergies: Allergies: Allergies Coded Allergies Type Severity Reaction Last Updated Verified Sulfa (Sulfonamide Antibiotics) Allergy Severe SOA, RASH 05/09/21 Yes citric acid Allergy Intermediate 02/15/20 Yes honey Allergy Intermediate 02/16/20 Yes shellfish derived Allergy Intermediate 02/15/20 Yes Physical Exam: PE: Constitutional: Well developed, well nourished, moderate acute distress. [] HENT: Normocephalic, atraumatic, bilateral external ears normal, oropharynx moist, no oral exudates, nose normal. [] Eyes: PERRLA, EOMI, conjunctiva normal, no discharge. [] Neck: No tenderness, supple, no stridor. [] Cardiovascular:Heart rate 127, regular rhythm, no murmur [] Lungs & Thorax: Diminished breath sounds on the left [] Abdomen: soft, no tenderness, no masses, no pulsatile masses. [] Skin: Warm, dry, no erythema, no rash. [] Back: No obvious trauma. [] Extremities: No tenderness, no cyanosis, no clubbing. [] Neurologic: Responds to some verbal commands, normal motor function, normal sensory function, no focal deficits noted. [] [] Current Patient Data: Labs: Laboratory Tests Test 10/03/21 19:45 White Blood Count 14.0 x10^3/uL (4.0-11.0) H Red Blood Count 3.43 x10^6/uL (3.50-5.40) L Hemoglobin 9.3 g/dL (12.0-15.5) L Hematocrit 30.8 % (36.0-47.0) L Mean Corpuscular Volume 90 fL (79-100) Mean Corpuscular Hemoglobin 27 pg (25-35) Mean Corpuscular Hemoglobin Concent 30 g/dL (31-37) L Red Cell Distribution Width 19.5 % (11.5-14.5) H Platelet Count 215 x10^3/uL (140-400) Neutrophils (%) (Auto) 80 % (31-73) H Lymphocytes (%) (Auto) 14 % (24-48) L Monocytes (%) (Auto) 5 % (0-9) Eosinophils (%) (Auto) 0 % (0-3) Basophils (%) (Auto) 1 % (0-3) Neutrophils # (Auto) 11.2 x10^3uL (1.8-7.7) H Lymphocytes # (Auto) 2.0 x10^3/uL (1.0-4.8) Monocytes # (Auto) 0.7 x10^3/uL (0.0-1.1) Eosinophils # (Auto) 0.0 x10^3/uL (0.0-0.7) Basophils # (Auto) 0.1 x10^3/uL (0.0-0.2) Sodium Level 151 mmol/L (136-145) H Potassium Level 2.4 mmol/L (3.5-5.1) *L Chloride Level 109 mmol/L (98-107) H Carbon Dioxide Level 28 mmol/L (21-32) Anion Gap 14 (6-14) Blood Urea Nitrogen 26 mg/dL (7-20) H Creatinine 3.0 mg/dL (0.6-1.0) H Estimated GFR (Cockcroft-Gault) 16.8 BUN/Creatinine Ratio 9 (6-20) Glucose Level 153 mg/dL (70-99) H Calcium Level 8.6 mg/dL (8.5-10.1) Total Bilirubin 0.8 mg/dL (0.2-1.0) Aspartate Amino Transferase (AST) 33 U/L (15-37) Alanine Aminotransferase (ALT) 28 U/L (14-59) Alkaline Phosphatase 125 U/L (46-116) H Troponin I High Sensitivity 34 ng/L (4-50) Total Protein 4.6 g/dL (6.4-8.2) L Albumin 2.0 g/dL (3.4-5.0) L Albumin/Globulin Ratio 0.8 (1.0-1.7) L Vital Signs: Vital Signs Date Time Temp Pulse Resp B/P (MAP) Pulse Ox O2 Delivery O2 Flow Rate FiO2 10/03/21 20:08 93 BiPAP/CPAP EKG: EKG: [] Radiology/Procedures: Radiology/Procedures: [] Impressions: Exam: Chest one view INDICATION: Shortness of breath TECHNIQUE: Frontal view of the chest Comparisons: 05/06/2021 FINDINGS: Right anterior chest wall port with catheter tip at the SVC. The cardiomediastinal silhouette and pulmonary vessels are within normal limits. Consolidation of the left upper to midlung. No pleural effusion. IMPRESSION: Findings likely related to a left lower lobe pneumonia. Follow-up imaging posttreatment to ensure resolution is recommended. Electronically signed by: Rian Reagan MD (10/03/2021 8:28 PM) [facility] DICTATED AND SIGNED BY: RIAN REAGAN MD DATE: 10/03/212026 CC: RICHARD GLOVER DO; GABRIEL DO MD ~ Heart Score: C/O Chest Pain: N/A Risk Factors: Risk Factors: DM, Current or recent (<one month) smoker, HTN, HLP, family history of CAD, obesity. Risk Scores: Score 0 - 3: 2.5% MACE over next 6 weeks - Discharge Home Score 4 - 6: 20.3% MACE over next 6 weeks - Admit for Clinical Observation Score 7 - 10: 72.7% MACE over next 6 weeks - Early Invasive Strategies Course & Med Decision Making: Course & Med Decision Making Pertinent Labs and Imaging studies reviewed. (See chart for details) Patient was initially thought to be full code we will place her on a BiPAP and were able to improve her oxygen saturation. She was given fluids which improved her blood pressure. When family arrived including her DPOA, he determined that patient needs to be changed to comfort care. They do not wish her to be on BiPAP at end-of-life. They would prefer that she be admitted for comfort care and pass away in a hospital setting. We switch the patient from BiPAP to nasal cannula. We gave her comfort medications of Ativan and morphine. I will admit the patient to the hospital as a DNR. Paperwork was filled out and signed by DPOA which is her . I spoke with Dr. Gonzalez and he has accepted the patient for admission. [] Charon Disclaimer: Adalid Disclaimer: This electronic medical record was generated, in whole or in part, using a voice recognition dictation system. Departure Departure: Impression: Primary Impression: Respiratory failure Disposition: ADMITTED INPATIENT Admitting Physician: Neville Gonzalez Condition: GRAVE Referrals: GABRIEL DO MD (PCP) RICHARD GLOVER DO Oct 03, 2021 21:06
[2021-10-03] MEDS ORDERED: ONDANSETRON PF 4 MG/2 ML VIAL. IVP PRN (22:00)
[2021-10-03] MEDS: MORPHINE SULFATE 4 MG/ML DISP.SYRIN. IVP PRN ×2 (22:15→23:49)
[2021-10-03 23:02] VITALS: BP 66/44
--- NOTE | 2021-10-03 23:03 | NUR ---
The patient, ROSANGELA FLORENCE, 45 y/o, F admitted by SCHUYLER HINES MD, was assessed and made comfortable. Family came to visit after pt cleaned up and vitals performed. wctm
[2021-10-03] MEDS ORDERED: HYDR-2763 PO (23:32)
--- NOTE | 2021-10-03 23:32 | NUR ---
THIS RN SPOKE WITH PTS . STATED HE WANTS ON COMFORT CARE. HE DOESNT WANT LABS DRAW OR WOUNDS REDRESSED. HE ALSO REFUSED HER TO BE TESTED FOR COVID.
[2021-10-04] MEDS: MORPHINE SULFATE 4 MG/ML DISP.SYRIN. IVP PRN ×3 (02:11→08:23)
[2021-10-04] MEDS ORDERED: HYDR5TAB PO ×2 (02:28)
--- NOTE | 2021-10-04 02:57 | NUR ---
PT WAS BEING SEEN BY [facility] RN [phone]
--- NOTE | 2021-10-04 08:44 | HP ---
DATE OF SERVICE: 10/04/2021 ADMIT DATE: 10/03/2021 ATTENDING PHYSICIAN: Dr. Gonzalez. CHIEF COMPLAINT: Shortness of breath. HISTORY OF PRESENT ILLNESS: The patient age 45 has multiple organ system failure. She has already been placed on hospice for renal failure, heart failure and COPD. She is actively dying. They were unable to get comfort meds to the patient for several hours. She was very restless. The panicked. He has very little insight. There was confusion between comfort care and code status. She was hypoxic. She was actually admitted to my service for end of life care and comfort measures. Unfortunately, there was a disconnect between what hospice could do at home and what the patient's family expected. By the time I saw her, she was already in the process of dying and she could not give us any history. PAST MEDICAL HISTORY: Significant for end-stage COPD, heart failure, renal failure, old stroke. She also has gastroparesis, spinal stenosis, Douglas's disease and multiple other issues. ALLERGIES: SHE HAS ALLERGIES TO SULFA, HONEY AND SHELLFISH DERIVATIVES. CURRENT MEDICATIONS: List were reviewed. Prior to coming here, she was on scheduled albuterol, ascorbic acid, aspirin, baclofen, vitamin B12, diclofenac, hydrocortisone, hyoscyamine, magnesium, methenamine, ondansetron, Aldactone, vancomycin and vitamin D. SOCIAL HISTORY: She is a nonsmoker, nondrinker. FAMILY HISTORY: Unobtainable. REVIEW OF SYSTEMS: Unobtainable. PHYSICAL EXAMINATION: GENERAL: When I saw her, this is a jaundiced female in agonal respiration. VITAL SIGNS: Blood pressure was measured in the 70s systolic. Oxygen saturation 76% on 10 liters. HEENT: Head is without trauma. Pupils are sluggish. Oropharynx clear. NECK: Supple. Sclerae were icteric. Oropharynx clear. LUNGS: Shallow respirations, and agonal. CARDIOVASCULAR: Showed distant heart tones. ABDOMEN: Soft. EXTREMITIES: Show 3+ edema. Ellis catheter in place. NEUROLOGIC: Function comatose. LABORATORY DATA: Chest x-ray showed consolidation of the left upper and mid lung tse. Hemoglobin 9.3 grams, white count 14,000. Sodium 151, potassium 2.4 mEq. Lactic acid was 8.5. Troponin was 34. ASSESSMENT: 1. A 45-year-old female with end-stage congestive heart failure. 2. End-stage respiratory failure, acute on chronic. 3. End-stage renal failure. 4. 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 5. Hypotension and shock. 6. This patient is actively dying. PLAN: 1. Since they are here in the ER, could not send her back to hospice. We will admit her for comfort measures. 2. Family at the bedside. I expect her to succumb to her illness very soon. XI DR: Angel TID: [id number]
--- NOTE | 2021-10-04 08:52 | NUR ---
Nursing note PT was assessed by the doctor and pronounced at 08:15am. PT was placed on observation while awaiting the families final decision. PT spouse by bedside and verbalized no other needs, just wanting to spend sometime with her.
--- NOTE | 2021-10-04 12:30 | NUR ---
Nursing note. PT was picked up from the hospital by the home at 12:25.
--- NOTE | 2021-10-04 18:50 | DS ---
DATE OF DISCHARGE: 10/04/2021 ATTENDING PHYSICIAN: Dr. Gonzalez. DATE OF EXPIRATION: 10/04/2021 FINAL DISCHARGE DIAGNOSES: 1. Acute on chronic congestive heart failure. 2. Acute on chronic respiratory failure. 3. Consolidation of the left lung field and chronic pneumonia. 4. Acute on chronic renal failure. 5. Acute liver failure. 6. Hypotension and shock. HISTORY AND PHYSICAL: The patient was a 45-year-old female with multiple organ system failure. She had been placed on hospice. She was actively dying. There was a miscommunication between the hospitalist group, the panicked, he ended up bringing her to the Emergency Room, she was quite restless. Because of the inability of the hospice team to take care of at home, she was admitted to my service, I was called by the Emergency Room physician, she was hypotensive and actively dying. PHYSICAL EXAMINATION: Please see my dictated note. PERTINENT LABORATORY AND X-RAY STUDIES: On the database. Chest x-ray as noted. COURSE IN HOSPITAL: The patient was admitted for comfort measures. All meds were held. The did not want any further treatment. Oxygen was removed. She was given Ativan and morphine. Shortly after I saw her, she took her last breath and she succumbed to her illness. I pronounced her at 0820 hours on the morning of 10/04/2021. Family was at the bedside. I told the nursing staff, I would sign the certificate. ODETTE DR: Angel TID: [id number]
== END 2021-10-04 12:33 ==
LOC: ER 19:46 → 1 SOUTH 21:45 → INTOOBSV 21:45
PROVIDERS: ADMIT Hospitalist; ATTEND Hospitalist
DX: J96.21 Acute and chronic respiratory failure with hypoxia (principal); I50.23 Acute on chronic systolic (congestive) heart failure; N18.6 End stage renal disease; K74.60 Unspecified cirrhosis of liver; I95.9 Hypotension, unspecified; E27.1 Primary adrenocortical insufficiency; J18.9 Pneumonia, unspecified organism; J44.0 Chronic obstructive pulmonary disease with (acute) lower respiratory infection; I50.84 End stage heart failure; K31.84 Gastroparesis; K72.00 Acute and subacute hepatic failure without coma; N17.9 Acute kidney failure, unspecified; Z51.5 Encounter for palliative care; Z86.73 Personal history of transient ischemic attack (TIA), and cerebral infarction without residual deficits; Z79.899 Other long term (current) drug therapy; Z98.890 Other specified postprocedural states
CPT/HCPCS: 36415; 71045; 80053; 83605; 84484; 85025; 87040; 87077; 94660; 96361; 96374; 96375; 96376; 99284; G0378; J2060; J2270; J2405; J7030; G0379